=== PATIENT | female | born 1960 | race Caucasian/White ===

== ENCOUNTER 2018-01-15 03:24 | Inpatient (IN) ==
[2018-01-15] MEDS ORDERED: ONDANSETRON 4 MG/2 ML VIAL IV ONE (03:52)
[2018-01-15] MEDS ORDERED: 0.9 % SODIUM CHLORIDE 2,000 ML IV ONE (03:52)
[2018-01-15] MEDS ORDERED: KETOROLAC 30 MG/ML VIAL IV ONE (03:53)
[2018-01-15] MEDS ORDERED: POTASSIUM CHLORIDE 20 MEQ TABLET PO ONE (04:29)
[2018-01-15] MEDS ORDERED: POTASSIUM CHLORIDE 40 MEQ in DEXTROSE 5% IN WATER 500 ML IV ONE (04:29)
--- NOTE | 2018-01-15 04:32 | Emergency Department Note ---
Nausea/Vomiting/Diarrhea HPI - General Chief complaint: Nausea/Vomiting/Diarrhea Stated complaint: rib pain and nausea r/t pain Time Seen by Provider: 01/15/18 03:35 Source: patient Mode of arrival: ambulatory Limitations: no limitations - History of Present Illness HPI Narrative: 57-year-old female with nausea vomiting and diarrhea since yesterday. She thinks this is secondary to pain from known rib fractures-she fell about a month ago. However she has started drinking alcohol again as well as taking Tylenol for the pain. She was recently admitted from 12/15/2017 to 12/30/2017 at [facility] for electrolyte disturbances and fall. I reviewed those notes from [facility]. She was also seen here on 01/08/[address] Tellez and [facility]- . She denies fever shortness of breath - Related Data Allergies Allergy/AdvReac Type Severity Reaction Status Date / Time clarithromycin [From Biaxin] Allergy Intermediate Vomiting Verified 01/08/18 08: 19 Review of Systems All systems ED: reviewed and negative except as stated. Past Medical History - Past Medical History Attestation: Yes: The following information was validated with the patient. Medical history: Reports: CHF, GERD, renal disease, other (malnutrition, failure to thrive, ETOH abuse, anemia, electrolyte imbalance,rhabdo,falls, PNA) Psychiatric history: Reports: anxiety, depression Surgical history ED: Reports: orthopedic, other (knee), tubal ligation Family history: Reports: cancer (mother colon) - Social History smoking status: Current every day smoker Alcohol use: Reports: Daily, Heavy Physical Exam Thin female no acute distress. Normocephalic atraumatic. Conjunctive are clear sclerae nonicteric. No nasal discharge or congestion. Oropharynx pink and moist. Neck is supple without lymphadenopathy or thyromegaly. No carotid bruit. Heart is regular rate and rhythm no murmur appreciated. Lungs are clear to auscultation bilaterally without wheezes rales rhonchi rest or distress. Tenderness over the left lateral ribs is noted. Abdomen is soft nontender nondistended. No pedal edema. +2 radial pulse. She is alert oriented able to answer questions appropriately. I do not see any focal deficits however she does have a significant resting coarse tremor throughout including her head suggestive of essential tremor- she says this is chronic. Limitations: no limitations Course Vital Signs Pulse Rate 85 07/08/18 03:25 Respiratory Rate 16 01/15/18 03:25 Blood Pressure 113/79 01/15/18 03:25 Pulse Oximetry (%) 99 01/15/18 03:25 Pulse Rate 80 01/15/18 07:01 Respiratory Rate 16 01/15/18 03:25 Blood Pressure 108/66 01/15/18 07:01 Pulse Oximetry (%) 99 01/15/18 07:01 Nausea/Vomiting/Diarrhea - Lab Data Lab results reviewed: Yes I reviewed the patient's lab results. Result diagrams: 01/15/18 04:02 01/15/18 04:02 Lab Results 01/15/18 01/15/18 01/15/18 Range/Units 04:02 04:02 04:02 WBC 8.2 (4.5-11.0) K/mcL RBC 2.79 L (4.00-5.20) M/mcL Hgb 9.2 L (12.0-15.0) g/dL Hct 26.7 L (36.0-48.0) % POC Hct 29.0 L (36.0-48.0) % MCV 95.8 (80.0-100.0) fL MCH 32.9 (26.0-34.0) pg MCHC 34.3 (31.0-36.0) g/dL RDW 18.0 H (11.5-14.5) % Plt Count 223 (140-440) K/mcL MPV 6.2 L (7.4-10.4) fL Gran % 91.8 H (38.0-78.0) % Lymph % (Auto) 7.3 L (15.5-49.0) % Glenn % (Auto) 0.7 L (1.0-12.0) % Eos % (Auto) 0.2 (0.0-7.0) % Baso % (Auto) 0 (0.0-2.0) % Gran # 7.5 (1.8-8.0) K/mcL Lymph # (Auto) 0.6 L (1.5-4.8) K/mcL Glenn # (Auto) 0.1 (0.1-0.9) K/mcL Eos # (Auto) 0 (0.0-0.7) K/mcL Baso # (Auto) 0 (0.0-0.3) K/mcL POC Sodium 122 L (133-145) mmol/L Sodium 122 L (133-145) mmol/L POC Potassium 2.8 L* (3.3-5.1) mmol/L Potassium 2.9 L* (3.3-5.1) mmol/L POC Chloride 80 L (96-108) mmol/L Chloride 80 L (96-108) mmol/L Carbon Dioxide 24 (22-30) mmol/L POC Total CO2 24 (22-30) mmol/L Anion Gap 18.0 H (8-16) POC BUN 6 (6-20) mg/dl BUN 8 (6-20) mg/dl Creatinine 0.7 (0.6-1.1) mg/dl POC Creatinine 0.6 (0.6-1.1) mg/dl GFR Calculation 96 Glucose 259 H (70-105) mg/dL POC Glucose 259 H (70-105) mg/dL Calcium 8.6 (8.6-10.4) mg/dl POC WB Ioniz Calcium 1.01 L (1.16-1.32) mmol/L Magnesium (1.6-2.5) mg/dL Total Bilirubin 0.9 (0.0-1.0) mg/dL AST 1965 H (0-37) U/l ALT 555 H (0-40) U/l Alkaline Phosphatase 101 (39-117) U/L Troponin T 0.01 (0-0.03) ng/ml Total Protein 6.0 (5.9-8.4) gm/dL Albumin 3.6 (3.2-5.2) gm/dL Globulin 2.4 (2.2-3.7) gm/dL Albumin/Globulin Ratio 1.5 (1.0-2.3) Amylase 41 (28-100) U/L Lipase 32 (7-60) U/L Urine Color Urine Appearance Urine pH (5.0-9.0) Ur Specific [place] (1.000-1.035) Urine Protein (NEG) mg/dL Urine Glucose (UA) (NEG) mg/dL Urine Ketones (NEG) mg/dL Urine Occult Blood (<0.03) mg/dL Urine Nitrate (NEG) Urine Bilirubin (NEG) mg/dL Urine Urobilinogen (NEG) mg/dL Ur Leukocyte Esterase (NEG) /uL Urine RBC (0-1) /hpf Urine WBC (0-4) /hpf Ur Squamous Epith Cells (0-4) /hpf Urine Bacteria (0) /hpf Hyaline Casts (0-2) /lpf Urine Mucus (0) /hpf Ur Culture Indicated? Ethyl Alcohol (<0.010) gm/dl 01/15/18 01/15/18 01/15/18 Range/Units 04:02 04:02 06:10 WBC (4.5-11.0) K/mcL RBC (4.00-5.20) M/mcL Hgb (12.0-15.0) g/dL Hct (36.0-48.0) % POC Hct (36.0-48.0) % MCV (80.0-100.0) fL MCH (26.0-34.0) pg MCHC (31.0-36.0) g/dL RDW (11.5-14.5) % Plt Count (140-440) K/mcL MPV (7.4-10.4) fL Gran % (38.0-78.0) % Lymph % (Auto) (15.5-49.0) % Glenn % (Auto) (1.0-12.0) % Eos % (Auto) (0.0-7.0) % Baso % (Auto) (0.0-2.0) % Gran # (1.8-8.0) K/mcL Lymph # (Auto) (1.5-4.8) K/mcL Glenn # (Auto) (0.1-0.9) K/mcL Eos # (Auto) (0.0-0.7) K/mcL Baso # (Auto) (0.0-0.3) K/mcL POC Sodium (133-145) mmol/L Sodium (133-145) mmol/L POC Potassium (3.3-5.1) mmol/L Potassium (3.3-5.1) mmol/L POC Chloride (96-108) mmol/L Chloride (96-108) mmol/L Carbon Dioxide (22-30) mmol/L POC Total CO2 (22-30) mmol/L Anion Gap (8-16) POC BUN (6-20) mg/dl BUN (6-20) mg/dl Creatinine (0.6-1.1) mg/dl POC Creatinine (0.6-1.1) mg/dl GFR Calculation Glucose (70-105) mg/dL POC Glucose (70-105) mg/dL Calcium (8.6-10.4) mg/dl POC WB Ioniz Calcium (1.16-1.32) mmol/L Magnesium 1.1 L (1.6-2.5) mg/dL Total Bilirubin (0.0-1.0) mg/dL AST (0-37) U/l ALT (0-40) U/l Alkaline Phosphatase (39-117) U/L Troponin T (0-0.03) ng/ml Total Protein (5.9-8.4) gm/dL Albumin (3.2-5.2) gm/dL Globulin (2.2-3.7) gm/dL Albumin/Globulin Ratio (1.0-2.3) Amylase (28-100) U/L Lipase (7-60) U/L Urine Color Yellow Urine Appearance Clear Urine pH 6.0 (5.0-9.0) Ur Specific [place] 1.016 (1.000-1.035) Urine Protein Neg (NEG) mg/dL Urine Glucose (UA) 150 A (NEG) mg/dL Urine Ketones Neg (NEG) mg/dL Urine Occult Blood Neg (<0.03) mg/dL Urine Nitrate Neg (NEG) Urine Bilirubin Neg (NEG) mg/dL Urine Urobilinogen Neg (NEG) mg/dL Ur Leukocyte Esterase Neg (NEG) /uL Urine RBC 1 (0-1) /hpf Urine WBC 2 (0-4) /hpf Ur Squamous Epith Cells 4 (0-4) /hpf Urine Bacteria 0 (0) /hpf Hyaline Casts 4 H (0-2) /lpf Urine Mucus Few (0) /hpf Ur Culture Indicated? No Ethyl Alcohol < 0.010 (<0.010) gm/dl - Radiology Data Radiology results reviewed: Yes I reviewed the patient's radiology results. X-ray of the left ribs shows fractures on ribs 5 through 9 Abdominal x-ray series showed nonspecific gas pattern Disposition Pt seen by [employer]/PA only: No Clinical Impression: Normocytic anemia, Hypokalemia, Hyponatremia, Hypomagnesemia, Tremor Rib fracture Qualifiers: Encounter type: subsequent encounter Rib fracture type: multiple ribs Fracture type: closed Laterality: left Fracture healing: with delayed healing Qualified Code(s): S22.42XG - Multiple fractures of ribs, left side, subsequent encounter for fracture with delayed healing Alcoholic hepatitis Qualifiers: Ascites presence: without ascites Qualified Code(s): K70.10 - Alcoholic hepatitis without ascites Summary: After initial exam and interview patient is worked up with x-rays and labs. Started IV fluid and treated pain with Toradol, nausea with Zofran Laboratory shows hyponatremia hypokalemia and hypomagnesemia. Hyponatremia is new and down to 122. Likely this is related to her alcohol usage but nonetheless is acute. Hypokalemia and hypomagnesemia are likely related and are treated with K rider and mag rider. Other lab abnormalities noted are chronic normocytic anemia She also has alcoholic hepatitis and x-ray show rib fractures 5 through 9 on the left. I discussed these findings with her I discussed the situation with Dr. Melendez, our hospitalist who agreed to admit the patient to observation status to correct her electrolytes and deal with her other issues Disposition: Xfer As Outpt/Obs ([facility]) Condition: Fair Referrals: No,PCP [Primary Care Provider] -
[2018-01-15 04:38] LABS: Basophils # (Auto) 0 K/mcL (0.0-0.3); Basophils % (Auto) 0 % (0.0-2.0); Eosinophils # (Auto) 0 K/mcL (0.0-0.7); Eosinophils % (Auto) 0.2 % (0.0-7.0); Granulocytes % (Auto) 91.8 % (38.0-78.0); Lymphocytes # (Auto) 0.6 K/mcL (1.5-4.8); Lymphocytes % (Auto) 7.3 % (15.5-49.0); Mean Cell Volume 95.8 fL (80.0-100.0); Mean Corpuscular HGB Conc 34.3 g/dL (31.0-36.0); Mean Corpuscular Hemoglobin 32.9 pg (26.0-34.0); Monocytes # (Auto) 0.1 K/mcL (0.1-0.9); Monocytes % (Auto) 0.7 % (1.0-12.0); Platelet Count 223 K/mcL (140-440); RBC 2.79 M/mcL (4.00-5.20)
[2018-01-15] MEDS ORDERED: POTASSIUM CHLORIDE 20 MEQ/10 ML VIAL IV ONE (04:44)
[2018-01-15 04:55] LABS: ALT/SGPT 555 U/l (0-40); Albumin 3.6 gm/dL (3.2-5.2); Albumin/Globulin Ratio 1.5 (1.0-2.3); Alkaline Phosphatase 101 U/L (39-117); Amylase 41 U/L (28-100); Blood Urea Nitrogen 8 mg/dl (6-20); Lipase 32 U/L (7-60)
--- NOTE | 2018-01-15 06:42 | XRay Report ---
CLINICAL INFORMATION: Injury. Rib pain. TECHNIQUE: PA and multiple oblique views of the left ribs COMPARISON: Chest x-ray dated 01/08/2018 FINDINGS: Fractures of the left fifth through ninth ribs, posterolaterally. No pneumothorax. No hemopneumothorax. There is minimal associated pleural thickening. No significant pulmonary contusion or focal infiltrate No mediastinal widening. Right lung is negative. IMPRESSION: 1. Fractures of the left fifth through ninth ribs 2. No pneumothorax or hemothorax. No other abnormality. Interpreted and Authenticated by: Hemanth Abbott 01/15/18
--- NOTE | 2018-01-15 06:43 | XRay Report ---
CLINICAL INFORMATION: Diarrhea TECHNIQUE: Supine and upright abdomen COMPARISON: None FINDINGS: There is colonic gas. No dilated gas-filled small bowel. No pneumatosis. No pneumoperitoneum. No biliary or portal venous gas. Bowel gas pattern is unremarkable. No acute or focal abnormality. IMPRESSION: Negative abdomen Interpreted and Authenticated by: Hemanth Abbott 01/15/18
[2018-01-15] MEDS ORDERED: MAGNESIUM SULFATE 2 GM/50 ML BAG IV ONE (06:55)
[2018-01-15 07:05] LABS: Appearance,Urine CLEAR; Bacteria,Urine 0 /hpf (0); Bilirubin,Urine NEG (NEG); Color,Urine YELLOW; Glucose,Urine (UA) 150 mg/dL (NEG); Leukocyte Esterase,Urine NEG /uL (NEG); Mucus,Urine FEW /hpf (0); Protein,Urine NEG (NEG); Specific Gravity,Urine 1.016 (1.000-1.035); Urine Blood NEG mg/dL (<0.03); Urine Hyaline Cast 4 /lpf (0-2); Urine RBC 1 /hpf (0-1); Urine Squamous Epithelial Cell 4 /hpf (0-4); Urine WBC 2 /hpf (0-4); Urobilinogen,Urine NEG (NEG)
--- NOTE | 2018-01-15 10:45 | Internal Med History&Physical ---
Medical - H&P: [facility] Patient information: Note initiated : 01/15/18 at 10:39 am Service Date, if different from initiated Date: [] Patient: Do Cantu a 57 y/o F admitted on for rib pain and nausea r/t pain. Chief Complaint: [nausea, vomiting, and diarrhea, left rib-fracture pain] Chief complaint: nausea, vomiting, and diarrhea, left rib-fracture pain History of present illness: Ms. Cantu is a 57 year old F smoker with chronic alcohol abuse and recurrent hyponatremia and electrolyte abnormalities. She has multiple alcohol induced and related chronic health issues: malnutrition, failure to thrive, ETOH withdrawal, anemia, electrolyte imbalance,rhabdo, recurrent falls, rib fractures , PNA. She was recently hospitalized at [place] (12/15/17-12/30/17), and she last fell with left rib fractures a month ago. She resumed taking couple shots of whiskey in hopes to relieve her rib pain, but developed nausea vomiting and diarrhea yesterday and came to the ER for help early this morning. She was given NS IV fluid, antiemetics, and found to have hyponatremia, hypoproteinemia , hypo-magnesemia. She is started on IV magnesium, IV and oral K replacement. She is to be a placed on telemetry observation for electrolyte replacements. I discussed with her in great length and explained to her that she needs to quit smoking and alcohol use, completely. We will ask social work to arrange her with assistance All systems: reviewed and no additional remarkable complaints except as stated - Constitutional Constitutional: Present: fatigue, frequent falls, weakness - Gastrointestinal Gastrointestinal: Present: diarrhea, nausea, vomiting - Neurological Neurological: Present: frequent falls, tremor(s) - Psychiatric Psychiatric: Present: depression Medical - H&P: [facility] Medical history: Chronic alcohol abuse Recurrent electrolytes abnormalities secondary to alcohol abuse (e.g. hyponatremia and hypokalemia, etc.) Echo July 2017: EF 50-55% with left atrial enlargement, aortic root dilatation with right atrial enlargement and grade 1 diastolic dysfunction. GERD with peptic ulcer disease Osteoarthritis, spondylosis, other (malnutrition, failure to thrive, ETOH abuse, anemia, electrolyte imbalance,rhabdo,falls, PNA) Depression and anxiety is Surgical history: Tubal ligation and knee surgery, details unknown Pertinent family history: Alcoholism, Mother of colon cancer, has CVA Smoking status: Current every day smoker (down to a few cigarettes a day per her report, 1 pack per day for 40 years) Alcohol use: other (chronic alcohol abuse) Medical - H&P: Meds Allergies Allergy/AdvReac Type Severity Reaction Status Date / Time clarithromycin [From Biaxin] Allergy Intermediate Vomiting Verified 01/08/18 08: 19 Medical - H&P: Exam - Constitutional Vitals: Pulse Resp BP Pulse Ox 82 16 98/60 99 01/15/18 10:31 01/15/18 03:25 01/15/18 10:31 01/15/18 10:31 General appearance: thin Exam: depress looking, appears much older than stated age - Head Head exam: Present: atraumatic, normocephalic - Eye Eye exam: Present: EOMI Pupils: Present: normal accommodation, PERRL - ENT ENT exam: Present: mucous membranes moist - Neck Neck exam: Present: full ROM - Respiratory Respiratory exam: Present: normal respiratory exam, CTAB - Cardiovascular Cardiovascular exam: Present: +S1, +S2. Absent: gallop, rubs Additional comments: Slightly fast heart rate - GI/Abdominal GI/Abdominal exam: Present: normal bowel sounds, soft. Absent: guarding, rebound Additional comments: Slight mid epigastric tenderness with deep palpation - Extremities Exam Extremities exam: Present: full ROM. Absent: calf tenderness, pedal edema - Neurological Exam Neurological exam: Present: alert, CN II-XII intact, oriented X3 Additional comments: occasional, Mild Slight resting hand tremor/shakiness Medical - H&P: Reslt - Labs CBC & Chem 7: 01/16/18 03:40 01/16/18 03:40 Labs: Short CBC 01/15/18 Range/Units 04:02 WBC 8.2 (4.5-11.0) K/mcL Hgb 9.2 L (12.0-15.0) g/dL Hct 26.7 L (36.0-48.0) % Plt Count 223 (140-440) K/mcL BMP 01/15/18 04:02 Sodium 122 L Potassium 2.9 L* Chloride 80 L Carbon Dioxide 24 BUN 8 Creatinine 0.7 Glucose 259 H Calcium 8.6 Cardiac Enzymes 01/15/18 Range/Units 04:02 Troponin T 0.01 (0-0.03) ng/ml Liver Function 01/15/18 Range/Units 04:02 Total Bilirubin 0.9 (0.0-1.0) mg/dL AST 1965 H (0-37) U/l ALT 555 H (0-40) U/l Alkaline Phosphatase 101 (39-117) U/L Albumin 3.6 (3.2-5.2) gm/dL Urine 01/15/18 Range/Units 06:10 Urine Color Yellow Urine Appearance Clear Urine pH 6.0 (5.0-9.0) Ur Specific [place] 1.016 (1.000-1.035) Urine Protein Neg (NEG) mg/dL Urine Glucose (UA) 150 A (NEG) mg/dL - Imaging and Cardiology Abdominal x-ray Additional comments: IMPRESSION: Negative abdomen Interpreted and Authenticated by: Hemanth Abbott 01/15/18 Chest x-ray Additional comments: IMPRESSION: 1. Fractures of the left fifth through ninth ribs 2. No pneumothorax or hemothorax. No other abnormality. Interpreted and Authenticated by: Hemanth Abbott 01/15/18 Medical - H&P: A/P (1) Hypomagnesemia Current visit: Yes Status: Acute Additional 4 g of IV magnesium, follow with oral maintenance as needed (2) Hyponatremia Current visit: Yes Status: Acute Close monitor, avoid too quick correction for concern of central pontine myelolysis Check orthostatics (3) Hypokalemia Current visit: Yes Status: Acute Getting oral and IV potassium replacement, as well as magnesium replacement (4) Nausea vomiting and diarrhea Current visit: Yes Status: Acute Likely secondary to alcohol abuse, alcoholic hepatitis, we'll further evaluate, possible abdominal ultrasound (5) Alcoholic hepatitis Current visit: Yes Status: Acute Check coagulations PT/INR, etc. discussed and explained in great length and details of alcohol toxicity with patient, and strongly advised her to completely stop smoking and alcohol use. (6) Normocytic anemia Current visit: Yes Status: Acute Stool guaiac screening, anemia workup, monitor H&H, TSH (7) Alcohol abuse Current visit: Yes Status: Acute strongly advised her to completely stop smoking and alcohol use, as above (8) Tobacco abuse Current visit: Yes Status: Acute strongly advised her to completely stop smoking and alcohol use, as above (9) Rib fracture Current visit: Yes Status: Acute Frequent fall with fracture secondary to alcohol abuse. I had strongly advised her to completely stop smoking and alcohol use, as above. Will place her on telemetry for electrolyte replacement, observation status, consult social work to assist her with AA and other assistance & resources.
[2018-01-15] MEDS ORDERED: IOPAMIDOL 100 ML BOTTLE IV ONE (11:11)
[2018-01-15] MEDS: ACETAMINOPHEN 325 MG TABLET PO PRN (11:55)
[2018-01-15] MEDS ORDERED: MAGNESIUM SULFATE 4 GM/100 ML BAG IV ONE (12:00)
[2018-01-15] MEDS ORDERED: HYDROcodone/APAP 5/325MG TABLET PO PRN (12:18)
[2018-01-15] MEDS: IPRATROPIUM/ALBUTEROL 3 ML AMPUL.NEB NEB SCH ×2 (12:42→19:25)
[2018-01-15] MEDS: NICOTINE 14 MG PATCH TOPICAL SCH (13:35)
[2018-01-15] MEDS: HYDROcodone/APAP 5/325MG TABLET PO PRN ×2 (13:35→22:25)
[2018-01-15] MEDS: LIDOCAINE PATCH TOPICAL SCH (14:36)
[2018-01-15] MEDS: 0.9 % SODIUM CHLORIDE 10 ML SYRINGE IV SCH ×2 (14:44→22:57)
[2018-01-15 16:35] LABS: Blood Urea Nitrogen 8 mg/dl (6-20)
[2018-01-15] MEDS ORDERED: ONDANSETRON 4 MG/2 ML VIAL ONE (19:06)
[2018-01-16] MEDS: LIDOCAINE PATCH TOPICAL SCH ×2 (03:56→12:38)
[2018-01-16] MEDS: IPRATROPIUM/ALBUTEROL 3 ML AMPUL.NEB NEB SCH ×4 (03:57→19:50)
[2018-01-16] MEDS: ACETAMINOPHEN 325 MG TABLET PO PRN (04:40)
[2018-01-16 05:25] LABS: Basophils # (Auto) 0 K/mcL (0.0-0.3); Basophils % (Auto) 0 % (0.0-2.0); Eosinophils # (Auto) 0.1 K/mcL (0.0-0.7); Eosinophils % (Auto) 1.9 % (0.0-7.0); Granulocytes % (Auto) 93.3 % (38.0-78.0); Lymphocytes # (Auto) 0.2 K/mcL (1.5-4.8); Lymphocytes % (Auto) 3.9 % (15.5-49.0); Mean Cell Volume 97.8 fL (80.0-100.0); Mean Corpuscular Hemoglobin 33.2 pg (26.0-34.0); Monocytes # (Auto) 0.1 K/mcL (0.1-0.9); Monocytes % (Auto) 0.9 % (1.0-12.0); Platelet Count 157 K/mcL (140-440); RBC 2.39 M/mcL (4.00-5.20)
[2018-01-16 05:50] LABS: ALT/SGPT 745 U/l (0-40); Albumin 3.2 gm/dL (3.2-5.2); Albumin/Globulin Ratio 1.6 (1.0-2.3); Alkaline Phosphatase 98 U/L (39-117); Blood Urea Nitrogen 7 mg/dl (6-20)
[2018-01-16] MEDS: ONDANSETRON 4 MG/2 ML VIAL IV PRN ×2 (07:03→19:35)
[2018-01-16] MEDS: 0.9 % SODIUM CHLORIDE 1,000 ML IV SCH (07:08)
[2018-01-16] MEDS: POTASSIUM CHLORIDE 20 MEQ PACKET PO SCH ×2 (07:15→09:34)
[2018-01-16 07:22] LABS: Retic Absolute 4.3 % (0.5-1.5)
[2018-01-16] MEDS ORDERED: PANTOPRAZOLE 40 MG TABLET PO SCH (07:30)
[2018-01-16] MEDS: 0.9 % SODIUM CHLORIDE 10 ML SYRINGE IV SCH ×3 (07:40→22:05)
--- NOTE | 2018-01-16 07:51 | Internal Med Progress Note ---
Medical - PN: Subj Patient information: Note initiated : 01/16/18 at 7:50 am Service Date, if different from initiated Date: [] Patient: Do Cantu 57 y/o F admitted on 01/15/18 for rib pain and nausea r /t pain. Chief Complaint: [] Interval history: 57 year old F smoker with chronic alcohol abuse and found to have recurrent hyponatremia and electrolyte abnormalities. She is admited 01/15/18 on telemetry observation for electrolyte replacements. She has multiple alcohol induced and related chronic health issues: malnutrition , failure to thrive, ETOH withdrawal, anemia, electrolyte imbalance,rhabdo, recurrent falls, rib fractures, PNA. She was recently hospitalized at [facility] (12/15/17-12/30/17), and she last fell with left rib fractures a month ago. She resumed taking couple shots of whiskey in hopes to relieve her rib pain, but developed nausea vomiting and diarrhea 01/14/18 and came to the ER for help early 01/15/18 morning. She was given NS IV fluid, antiemetics, and found to have hyponatremia, hypoproteinemia, hypo-magnesemia. She is started on IV magnesium, IV and oral K replacement. I discussed with her in great length and explained to her that she needs to quit smoking and alcohol use, completely. We will ask social work to arrange her with assistance 01/16/18 She continued to have intractable nausea & vomiting, other abnormal labs with anemia, elevated INR, elevated total bilirubin. She had also reported to have dark tarry stool at home. We will check CT Pelvis with contrast, TSH, iron panels, B12 folate, Hemoccult screen, change oral to IV Protonix; resume gentle IV fluid if orthostatic positive. Recheck INR - Constitutional Vitals: Vital Signs Temp Pulse Resp BP Pulse Ox 99.1 F H 94 H 20 104/62 98 01/16/18 04:00 01/16/18 04:00 01/16/18 04:00 01/16/18 04:00 01/16/18 04:00 Period Temp Pulse Resp BP Sys/Manning Pulse Ox Last 24 Hr 97.8 F-99.2 F 80-98 16-26 97-120/59-75 95-100 Intake and Output 01/15/18 01/16/18 01/16/18 21:59 05:59 13:59 Intake Total 2640 / 2640 Output Total 750 / 750 300 / 300 Balance 1890 / 1890 -300 / -300 Weight 116 lb 14.4 oz Intake & Output: Intake & Output 01/15/18 01/16/18 01/16/18 21:59 05:59 13:59 Intake Total 2640 / 2640 Output Total 750 / 750 300 / 300 Balance 1890 / 1890 -300 / -300 Weight 116 lb 14.4 oz Intake: Oral 2640 / 2640 Output: Void Amount 450 / 450 300 / 300 # of times incontinent of urine 0 / 0 Emesis 300 / 300 Other: # Voids 1 2 General appearance: mild distress, thin Exam: pale looking - Head Head exam: Present: atraumatic, normocephalic - Eye Eye exam: Present: EOMI Pupils: Present: normal accommodation, PERRL - ENT ENT exam: Present: mucous membranes moist - Neck Neck exam: Present: full ROM. Absent: meningismus, thyromegaly - Respiratory Respiratory exam: Present: normal respiratory exam, CTAB - Cardiovascular Cardiovascular exam: Present: RRR, +S1, +S2. Absent: gallop, rubs - GI/Abdominal GI/Abdominal exam: Present: normal bowel sounds, soft, tenderness. Absent: guarding, rebound Additional comments: Mild Midsternal/epigastric tenderness on palpation - Extremities Exam Extremities exam: Absent: pedal edema Additional comments: No clubbing, cyanosis, nor edema - Neurological Exam Neurological exam: Present: alert, CN II-XII intact, oriented X3 - Psychiatric Psychiatric exam: Present: depressed - Skin Skin exam: Present: pallor Medical - PN: Obj Da - Labs CBC & Chem 7: 01/16/18 03:40 01/16/18 03:40 Labs: Abnormal Lab Results 01/16/18 01/16/18 01/16/18 06:27 03:40 03:40 RBC 2.39 L Hgb 7.9 L Hct 23.4 L POC Hct RDW 19.0 H MPV 7.2 L Gran % 93.3 H Lymph % (Auto) 3.9 L [place] % (Auto) 0.9 L Lymph # (Auto) 0.2 L Absolute Retic 4.3 H PT INR POC Sodium Sodium 120 L POC Potassium Potassium POC Chloride Chloride 86 L Carbon Dioxide 21 L Anion Gap Creatinine 0.5 L Glucose POC Glucose Calcium 8.0 L POC WB Ioniz Calcium Phosphorus Magnesium Total Bilirubin 1.9 H GGT AST 1676 H ALT 745 H Total Protein 5.2 L Globulin 2.0 L Urine Glucose (UA) Hyaline Casts 01/15/18 01/15/18 01/15/18 15:34 15:34 06:10 RBC Hgb Hct POC Hct RDW MPV Gran % Lymph % (Auto) [place] % (Auto) Lymph # (Auto) Absolute Retic PT 21.8 H INR 1.9 H POC Sodium Sodium 125 L POC Potassium Potassium POC Chloride Chloride 88 L Carbon Dioxide Anion Gap Creatinine Glucose 218 H POC Glucose Calcium 7.6 L POC WB Ioniz Calcium Phosphorus Magnesium Total Bilirubin GGT AST ALT Total Protein Globulin Urine Glucose (UA) 150 A Hyaline Casts 4 H 01/15/18 01/15/18 01/15/18 04:20 04:02 04:02 RBC Hgb Hct POC Hct 29.0 L RDW MPV Gran % Lymph % (Auto) [place] % (Auto) Lymph # (Auto) Absolute Retic PT INR POC Sodium 122 L Sodium 122 L POC Potassium 2.8 L* Potassium 2.9 L* POC Chloride 80 L Chloride 80 L Carbon Dioxide Anion Gap 18.0 H Creatinine Glucose 259 H POC Glucose 259 H Calcium POC WB Ioniz Calcium 1.01 L Phosphorus 2.1 L Magnesium 1.1 L Total Bilirubin GGT 128 H AST 1965 H ALT 555 H Total Protein Globulin Urine Glucose (UA) Hyaline Casts 01/15/18 04:02 RBC 2.79 L Hgb 9.2 L Hct 26.7 L POC Hct RDW 18.0 H MPV 6.2 L Gran % 91.8 H Lymph % (Auto) 7.3 L [place] % (Auto) 0.7 L Lymph # (Auto) 0.6 L Absolute Retic PT INR POC Sodium Sodium POC Potassium Potassium POC Chloride Chloride Carbon Dioxide Anion Gap Creatinine Glucose POC Glucose Calcium POC WB Ioniz Calcium Phosphorus Magnesium Total Bilirubin GGT AST ALT Total Protein Globulin Urine Glucose (UA) Hyaline Casts Meds: Medications Acetaminophen (Tylenol) 650 mg PO Q8HP PRN PRN Reason: PAIN/FEVER > 101 Last Admin: 01/16/18 04:40 Dose: 650 mg Hydrocodone Bitart/Acetaminophen ([place] 5/325mg) 1 tab PO Q8HP PRN PRN Reason: PAIN LEVEL 3-6 Last Admin: 01/15/18 22:25 Dose: 1 tab Albuterol/Ipratropium (Duoneb) 3 ml NEB Q6HRT [facility] Last Admin: 01/16/18 03:57 Dose: Not Given Sodium Chloride (Sodium Chloride 0.9%) 1,000 mls @ 50 mls/hr IV .Q20H [facility] Last Admin: 01/16/18 07:08 Dose: 50 mls/hr Lidocaine (Lidoderm) 1 patch TOPICAL DAILY@1200 EVELYN Last Admin: 01/15/18 14:36 Dose: 1 patch Lidocaine (Lidoderm) 0 patch TOPICAL HS@0000 [facility] Last Admin: 01/16/18 03:56 Dose: Not Given Nicotine (Nicoderm) 14 mg TOPICAL DAILY@1000 EVELYN Last Admin: 01/15/18 13:35 Dose: 14 mg Ondansetron HCl (Zofran) 4 mg IV Q4-6HP PRN PRN Reason: Nausea And Vomiting Last Admin: 01/16/18 07:03 Dose: 4 mg Pantoprazole Sodium (Protonix) 40 mg PO QAMAC [facility] Last Admin: 01/16/18 07:03 Dose: 40 mg Potassium Chloride (Klor-Con) 40 meq PO Q2H [facility] Stop: 01/16/18 08:16 Last Admin: 01/16/18 07:15 Dose: 40 meq Sodium Chloride (Saline Flush) 10 ml IV Q8 [facility] Last Admin: 01/16/18 07:40 Dose: 10 ml Medical - PN: A/P - Time Spent With Patient Total time spent is greater than 50% in coordination of care (as documented) at patient's floor/unit and/or counseling patient: Greater than 35 minutes (1) Nausea vomiting and diarrhea Problem details: Intractable, peptic ulcer, hepatic alcoholic liver, vs. gallbladder etiologies, or others Status: Acute Assessment and plan: CT abd & Pelvis with contrast, IV Protonix, symptomatic relief with zofran/ antiementics, Hemoccult screen. Current Visit: No (2) Normocytic anemia Problem details: Concern for GI bleeding Status: Acute Assessment and plan: check TSH, iron panels, B12 folate, Hemoccult screen, change oral to IV Protonix , recheck coagulation, Hemoccult screen. Current Visit: No (3) Hyponatremia Status: Acute Assessment and plan: Orthostatic check, resume gentle NS Current Visit: No (4) Hypokalemia Status: Acute Assessment and plan: Potassium better today, still at margin, we'll give an additional oral doses Current Visit: No (5) Hypomagnesemia Status: Acute Current Visit: No (6) Alcoholic hepatitis Status: Acute Assessment and plan: Liver enzymes are slight better, but total bili up, anticoagulated without medications; concern she may have GI bleed, possibly. Current Visit: No (7) Alcohol abuse Status: Chronic Assessment and plan: strongly advised her to completely stop smoking and alcohol use, as above. She'll need to have PCP set up for healthcare maintenance, especially helpful with her alcohol & tobacco abuse issues Current Visit: No (8) Tobacco abuse Status: Chronic Assessment and plan: On nicotine patch. She'll need to have PCP set up for healthcare maintenance, especially helpful with her alcohol & tobacco abuse issues Current Visit: No (9) Rib fracture Status: Chronic Assessment and plan: Stable, fall precaution Current Visit: No Medical - PN: Qual - Stroke Symptom Onset Unknown: No - VTE Deep Vein Thrombosis/Pulmonary Embolism Present on Admission: No
[2018-01-16] MEDS: HYDROcodone/APAP 5/325MG TABLET PO PRN ×2 (09:29→20:25)
[2018-01-16] MEDS: NICOTINE 14 MG PATCH TOPICAL SCH (09:29)
[2018-01-16] MEDS ORDERED: NICOTINE 14 MG PATCH TOPICAL SCH (10:00)
--- NOTE | 2018-01-16 11:17 | Cat Scan Report ---
CLINICAL INFORMATION: Nausea and vomiting COMPARISON: None. TECHNIQUE: Axial images were obtained through the abdomen and pelvis. Sagittally and coronally reformatted images. 70 mL contrast material injected intravenously. Oral contrast material was not administered FINDINGS: Small bilateral pleural effusions. There is mild pulmonary parenchymal density at both lung bases. This may be related to volume loss. No parenchymal consolidation. No discrete mass. No pericardial fluid. Precontrast examination was not obtained. Liver appears diffusely low in density consistent with hepatic steatosis. No focal hepatic mass. Liver contour is smooth. No evidence for cirrhosis. No ascites. No calcified gallstones. No definite gallbladder wall thickening. There is, however, mild pericholecystic inflammatory change. Cholecystitis is possible. Gallbladder ultrasound is recommended. No dilated bile ducts. Common bile duct measures 4 mm. Spleen is not enlarged. Normal enhancement of splenic and portal veins. No pancreatic mass. No evidence for pancreatitis. 17 mm right adrenal nodule. 15 mm left adrenal nodule. Findings are probably benign. HERIBERTO values on this postcontrast enhanced examination are nonspecific. 6 month follow-up evaluation of the adrenal glands is recommended. Kidneys are negative. No solid or cystic mass. No hydronephrosis. No calculi. Abdominal aorta and common iliac arteries are calcified. No abdominal aortic aneurysm. Colon is negative. No detectable colonic mass. No diverticulitis. No appendicitis. No mechanical small bowel obstruction. No retroperitoneal or mesenteric adenopathy. Severe degenerative disc disease at L2-3. No sacral or pelvic fracture. Uterus is present. No adnexal mass. IMPRESSION: 1. Hepatic steatosis. No focal hepatic mass 2. No calcified gallstones. There is pericholecystic inflammatory change. Cholecystitis is not excluded. Gallbladder ultrasound recommended 3. Bilateral adrenal nodules. 6 month follow-up examination recommended. 4. The exam was performed using radiation dose optimization techniques including, but not limited to, automated exposure control, adjustment of the mA and/or kV according to patient size and use of iterative reconstruction technique. Interpreted and Authenticated by: Hemanth Abbott 01/16/18
[2018-01-16] MEDS: PANTOPRAZOLE 40 MG VIAL IV SCH ×2 (12:40→17:01)
[2018-01-16 13:00] LABS: Ferritin 911.5 ng/ml (13-150)
--- NOTE | 2018-01-16 18:35 | Ultrasound Report ---
CLINICAL INFORMATION: Abdominal pain. Possible cholecystitis TECHNIQUE: Grayscale and color flow Doppler spectral imaging COMPARISON: CT scan dated 01/16/2018 FINDINGS: Gallbladder is abnormal. Gallbladder is distended. Gallbladder measures approximately 10.1 cm in length. There is borderline gallbladder wall thickening. Gallbladder wall measures approximately 2.7 mm. There is mild pericholecystic fluid. There are no discrete gallstones but there is biliary sludge within the gallbladder lumen. Patient was tender when scanned over the gallbladder. Common bile duct measures 7 mm maximally. This is consistent with mild common bile duct dilatation. No detectable choledocholithiasis. No intrahepatic bile duct dilatation. Liver measures 19 cm maximally. Liver is somewhat enlarged and echogenic. No focal intrahepatic abnormality. Liver contour is smooth. No evidence for cirrhosis. No significant ascites. Visualized portions of the pancreas are negative. The pancreatic duct is borderline dilated. Pancreatic duct measures 2.8 mm maximally. No detectable pancreatic head mass. No pancreatic head mass was identified on previous CT scan. IMPRESSION: 1. Distended gallbladder with intraluminal biliary sludge. No discrete calculi 2. Borderline gallbladder wall thickening and pericholecystic fluid. Positive sonographic Mosley's sign 3. Findings are consistent with cholecystitis 4. Borderline dilatation of the pancreatic duct. No pancreatic head mass identified. 5. Mildly enlarged liver. Liver is echogenic without focal mass. Interpreted and Authenticated by: Hemanth Abbott 01/16/18
[2018-01-17] MEDS: LIDOCAINE PATCH TOPICAL SCH ×2 (00:10→11:57)
[2018-01-17] MEDS: IPRATROPIUM/ALBUTEROL 3 ML AMPUL.NEB NEB SCH ×4 (01:05→19:35)
[2018-01-17] MEDS: 0.9 % SODIUM CHLORIDE 1,000 ML IV SCH ×4 (02:12→22:15)
[2018-01-17] MEDS: ACETAMINOPHEN 325 MG TABLET PO PRN ×2 (04:06→17:56)
[2018-01-17] MEDS: HYDROcodone/APAP 5/325MG TABLET PO PRN ×2 (04:41→18:51)
[2018-01-17 05:42] LABS: Basophils # (Auto) 0 K/mcL (0.0-0.3); Basophils % (Auto) 0 % (0.0-2.0); Eosinophils # (Auto) 0.1 K/mcL (0.0-0.7); Eosinophils % (Auto) 0.9 % (0.0-7.0); Granulocytes % (Auto) 94.2 % (38.0-78.0); Lymphocytes # (Auto) 0.4 K/mcL (1.5-4.8); Lymphocytes % (Auto) 3.8 % (15.5-49.0); Mean Cell Volume 98.5 fL (80.0-100.0); Mean Corpuscular HGB Conc 33.4 g/dL (31.0-36.0); Mean Corpuscular Hemoglobin 32.9 pg (26.0-34.0); Monocytes # (Auto) 0.1 K/mcL (0.1-0.9); Monocytes % (Auto) 1.1 % (1.0-12.0); Platelet Count 147 K/mcL (140-440); Red Cell Distribution Width 19.9 % (11.5-14.5)
[2018-01-17] MEDS: 0.9 % SODIUM CHLORIDE 10 ML SYRINGE IV SCH ×3 (05:46→22:15)
[2018-01-17 06:36] LABS: Hemoglobin A1C 6.3 % HGB (4.0-6.0)
[2018-01-17 06:43] LABS: ALT/SGPT 3150 U/l (0-40); Albumin/Globulin Ratio 1.4 (1.0-2.3); Alkaline Phosphatase 147 U/L (39-117); Blood Urea Nitrogen 7 mg/dl (6-20)
[2018-01-17] MEDS ORDERED: 0.9 % SODIUM CHLORIDE 300 ML IV ONE (07:19)
--- NOTE | 2018-01-17 07:58 | Internal Med Progress Note ---
Medical - PN: Subj Patient information: Note initiated : 01/17/18 at 7:54 am Service Date, if different from initiated Date: [] Patient: Do Cantu 57 y/o F admitted on 01/15/18 for Rib Pain, Nausea r/t Pain/Rib Fracture. Chief Complaint: [] Interval history: 57 year old F smoker with chronic alcohol abuse and found to have recurrent hyponatremia and electrolyte abnormalities. She is admited 01/15/18 on telemetry observation for electrolyte replacements. She has multiple alcohol induced and related chronic health issues: malnutrition , failure to thrive, ETOH withdrawal, anemia, electrolyte imbalance,rhabdo, recurrent falls, rib fractures, PNA. She was recently hospitalized at [facility] (12/15/17-12/30/17), and she last fell with left rib fractures a month ago. She resumed taking couple shots of whiskey in hopes to relieve her rib pain, but developed nausea vomiting and diarrhea 01/14/18 and came to the ER for help early 01/15/18 morning. She was given NS IV fluid, antiemetics, and found to have hyponatremia, hypoproteinemia, hypo-magnesemia. She is started on IV magnesium, IV and oral K replacement. I discussed with her in great length and explained to her that she needs to quit smoking and alcohol use, completely. We will ask social work to arrange her with assistance 01/16/18 She continued to have intractable nausea & vomiting, other abnormal labs with anemia, elevated INR, elevated total bilirubin. She had also reported to have dark tarry stool at home. We will check CT Pelvis with contrast, TSH, iron panels, B12 folate, Hemoccult screen, change oral to IV Protonix; resume gentle IV fluid if orthostatic positive. Recheck INR 01/17/18 Acute cholecystitis on abdominal ultrasound, worsen hyper-anticoagulation and likely blood loss anemia, stool guaiacs pending, add on lipase and amylase. IV fluids, vitamin K, type and cross for transfusion. Surgery consult on cholecystitis - Constitutional Vitals: Vital Signs Temp Pulse Resp BP Pulse Ox 98.9 F 110 H 20 109/78 97 01/17/18 04:00 01/17/18 07:29 01/17/18 07:29 01/17/18 07:29 01/17/18 07:29 Period Temp Pulse Resp BP Sys/Manning Pulse Ox Last 24 Hr 98.2 F-99.4 F 93-110 16-22 91-116/57-78 97-100 Intake and Output 01/16/18 01/17/18 01/17/18 21:59 05:59 13:59 Intake Total 360 / 360 1312 / 1312 Output Total 1400 / 1400 1425 / 1425 550 / 550 Balance -1040 / -1040 -113 / -113 -550 / -550 Weight 117 lb Intake & Output: Intake & Output 01/16/18 01/17/18 01/17/18 21:59 05:59 13:59 Intake Total 360 / 360 1312 / 1312 Output Total 1400 / 1400 1425 / 1425 550 / 550 Balance -1040 / -1040 -113 / -113 -550 / -550 Weight 117 lb Intake: IV 952 / 952 Sodium Chloride 0.9% 1,000 ml @ 952 / 952 50 mls/hr IV .Q20H [facility] Rx#: [id number] Oral 360 / 360 360 / 360 Output: Urine Catheter Amount 150 / 150 Void Amount 1250 / 1250 1425 / 1425 550 / 550 Other: Meal Dinner Percent of Meal Consumed 100% Feeding Ability Independent # Voids 1 1 Medical - PN: Obj Da - Labs CBC & Chem 7: 01/17/18 03:30 01/17/18 03:30 Labs: Abnormal Lab Results 01/17/18 01/17/18 01/17/18 03:30 03:30 03:30 RBC Hgb Hct POC Hct RDW MPV Gran % Lymph % (Auto) [place] % (Auto) Gran # Lymph # (Auto) Absolute Retic PT 25.8 H INR 2.3 H POC Sodium Sodium 119 L* POC Potassium Potassium POC Chloride Chloride 86 L Carbon Dioxide 17 L Anion Gap Creatinine Glucose 182 H POC Glucose Hemoglobin A1c 6.3 H Calcium 8.2 L POC WB Ioniz Calcium Phosphorus Magnesium Iron TIBC Transferrin % Sat Ferritin Total Bilirubin 1.5 H GGT AST 9445 H ALT 3150 H Alkaline Phosphatase 147 H Total Protein 5.2 L Albumin 3.0 L Globulin Vitamin B12 Folate Urine Glucose (UA) Hyaline Casts 01/17/18 01/16/18 01/16/18 03:30 06:27 06:27 RBC 2.20 L Hgb 7.2 L Hct 21.7 L POC Hct RDW 19.9 H MPV Gran % 94.2 H Lymph % (Auto) 3.8 L [place] % (Auto) Gran # 8.8 H Lymph # (Auto) 0.4 L Absolute Retic 4.3 H PT INR POC Sodium Sodium POC Potassium Potassium POC Chloride Chloride Carbon Dioxide Anion Gap Creatinine Glucose POC Glucose Hemoglobin A1c Calcium POC WB Ioniz Calcium Phosphorus Magnesium Iron TIBC Transferrin % Sat Ferritin Total Bilirubin GGT AST ALT Alkaline Phosphatase Total Protein Albumin Globulin Vitamin B12 Folate > 20.0 H Urine Glucose (UA) Hyaline Casts 01/16/18 01/16/18 01/16/18 06:27 03:41 03:40 RBC Hgb Hct POC Hct RDW MPV Gran % Lymph % (Auto) [place] % (Auto) Gran # Lymph # (Auto) Absolute Retic PT INR POC Sodium Sodium 120 L POC Potassium Potassium POC Chloride Chloride 86 L Carbon Dioxide 21 L Anion Gap Creatinine 0.5 L Glucose POC Glucose Hemoglobin A1c Calcium 8.0 L POC WB Ioniz Calcium Phosphorus Magnesium Iron 29 L TIBC 204 L Transferrin % Sat 14 L Ferritin 911.5 H Total Bilirubin 1.9 H GGT AST 1676 H ALT 745 H Alkaline Phosphatase Total Protein 5.2 L Albumin Globulin 2.0 L Vitamin B12 1727 H Folate Urine Glucose (UA) Hyaline Casts 01/16/18 01/15/18 01/15/18 03:40 15:34 15:34 RBC 2.39 L Hgb 7.9 L Hct 23.4 L POC Hct RDW 19.0 H MPV 7.2 L Gran % 93.3 H Lymph % (Auto) 3.9 L [place] % (Auto) 0.9 L Gran # Lymph # (Auto) 0.2 L Absolute Retic PT 21.8 H INR 1.9 H POC Sodium Sodium 125 L POC Potassium Potassium POC Chloride Chloride 88 L Carbon Dioxide Anion Gap Creatinine Glucose 218 H POC Glucose Hemoglobin A1c Calcium 7.6 L POC WB Ioniz Calcium Phosphorus Magnesium Iron TIBC Transferrin % Sat Ferritin Total Bilirubin GGT AST ALT Alkaline Phosphatase Total Protein Albumin Globulin Vitamin B12 Folate Urine Glucose (UA) Hyaline Casts 01/15/18 01/15/18 01/15/18 06:10 04:20 04:02 RBC Hgb Hct POC Hct RDW MPV Gran % Lymph % (Auto) [place] % (Auto) Gran # Lymph # (Auto) Absolute Retic PT INR POC Sodium Sodium POC Potassium Potassium POC Chloride Chloride Carbon Dioxide Anion Gap Creatinine Glucose POC Glucose Hemoglobin A1c Calcium POC WB Ioniz Calcium Phosphorus 2.1 L Magnesium 1.1 L Iron TIBC Transferrin % Sat Ferritin Total Bilirubin GGT 128 H AST ALT Alkaline Phosphatase Total Protein Albumin Globulin Vitamin B12 Folate Urine Glucose (UA) 150 A Hyaline Casts 4 H 01/15/18 01/15/18 04:02 04:02 RBC 2.79 L Hgb 9.2 L Hct 26.7 L POC Hct 29.0 L RDW 18.0 H MPV 6.2 L Gran % 91.8 H Lymph % (Auto) 7.3 L [place] % (Auto) 0.7 L Gran # Lymph # (Auto) 0.6 L Absolute Retic PT INR POC Sodium 122 L Sodium 122 L POC Potassium 2.8 L* Potassium 2.9 L* POC Chloride 80 L Chloride 80 L Carbon Dioxide Anion Gap 18.0 H Creatinine Glucose 259 H POC Glucose 259 H Hemoglobin A1c Calcium POC WB Ioniz Calcium 1.01 L Phosphorus Magnesium Iron TIBC Transferrin % Sat Ferritin Total Bilirubin GGT AST 1965 H ALT 555 H Alkaline Phosphatase Total Protein Albumin Globulin Vitamin B12 Folate Urine Glucose (UA) Hyaline Casts Meds: Medications Acetaminophen (Tylenol) 650 mg PO Q8HP PRN PRN Reason: PAIN/FEVER > 101 Last Admin: 01/17/18 04:06 Dose: 650 mg Hydrocodone Bitart/Acetaminophen ([place] 5/325mg) 1 tab PO Q8HP PRN PRN Reason: PAIN LEVEL 3-6 Last Admin: 01/17/18 04:41 Dose: 1 tab Albuterol/Ipratropium (Duoneb) 3 ml NEB Q6HRT [facility] Last Admin: 01/17/18 07:48 Dose: Not Given Sodium Chloride (Sodium Chloride 0.9%) 1,000 mls @ 100 mls/hr IV .Q10H [facility] Lidocaine (Lidoderm) 1 patch TOPICAL DAILY@1200 EVELYN Last Admin: 01/16/18 12:38 Dose: 1 patch Lidocaine (Lidoderm) 0 patch TOPICAL HS@0000 EVELYN Last Admin: 01/17/18 00:10 Dose: Not Given Morphine Sulfate (Morphine) 0.5 - 1 mg IV Q4HP PRN PRN Reason: Pain Level > 6, breakthrough Nicotine (Nicoderm) 14 mg TOPICAL DAILY@1000 EVELYN Last Admin: 01/16/18 09:29 Dose: 14 mg Ondansetron HCl (Zofran) 4 mg IV Q4-6HP PRN PRN Reason: Nausea And Vomiting Last Admin: 01/16/18 19:35 Dose: 4 mg Pantoprazole Sodium (Protonix) 40 mg IV BIDAC [facility] Last Admin: 01/16/18 17:01 Dose: 40 mg Sodium Chloride (Saline Flush) 10 ml IV Q8 [facility] Last Admin: 01/17/18 05:46 Dose: Not Given Medical - PN: A/P - Time Spent With Patient Total time spent is greater than 50% in coordination of care (as documented) at patient's floor/unit and/or counseling patient: Greater than 35 minutes (1) Nausea vomiting and diarrhea Problem details: Intractable, peptic ulcer, hepatic alcoholic liver, vs. gallbladder etiologies, or others Status: Acute Assessment and plan: CT abd & Pelvis with contrast: Hepatic steatosis, pericholecystic inflammatory changes (Bilateral adrenal nodules. 6 month follow-up examination recommended). Abdominal ultrasound are consistent with cholecystitis. We will consult surgery, Dr. Juarez Current Visit: No (2) Normocytic anemia Problem details: Concern for GI bleeding Status: Acute Assessment and plan: check TSH, iron panels, B12 folate, Hemoccult screen, change oral to IV Protonix , recheck coagulation, Hemoccult screen. Current Visit: No (3) Hyponatremia Status: Acute Assessment and plan: Orthostatic check, resume gentle NS Current Visit: No (4) Hypokalemia Status: Acute Assessment and plan: Potassium better today, still at margin, we'll give an additional oral doses Current Visit: No (5) Hypomagnesemia Status: Acute Current Visit: No (6) Alcoholic hepatitis Status: Acute Assessment and plan: Liver enzymes are slight better, but total bili up, anticoagulated without medications; concern she may have GI bleed, possibly. Current Visit: No (7) Alcohol abuse Status: Chronic Assessment and plan: strongly advised her to completely stop smoking and alcohol use, as above. She'll need to have PCP set up for healthcare maintenance, especially helpful with her alcohol & tobacco abuse issues Current Visit: No (8) Tobacco abuse Status: Chronic Assessment and plan: On nicotine patch. She'll need to have PCP set up for healthcare maintenance, especially helpful with her alcohol & tobacco abuse issues Current Visit: No (9) Rib fracture Status: Chronic Assessment and plan: Stable, fall precaution Current Visit: No Medical - PN: Qual - Stroke Symptom Onset Unknown: No - VTE Deep Vein Thrombosis/Pulmonary Embolism Present on Admission: No
[2018-01-17] MEDS: PANTOPRAZOLE 40 MG VIAL IV SCH ×2 (08:37→17:20)
[2018-01-17 08:46] LABS: Amylase 58 U/L (28-100); Lipase 29 U/L (7-60)
[2018-01-17] MEDS ORDERED: PHYTONADIONE 10 MG/ML AMPUL PO ONE (09:30)
[2018-01-17] MEDS: LORazepam 2 MG/ML VIAL IV PRN ×4 (10:22→19:40)
[2018-01-17 10:41] LABS: Appearance,Urine HAZY; Bacteria,Urine 0 /hpf (0); Bilirubin,Urine NEG (NEG); Color,Urine YELLOW; Glucose,Urine (UA) NEGATIVE (NEG); Leukocyte Esterase,Urine NEG /uL (NEG); Mucus,Urine FEW /hpf (0); Protein,Urine 30 mg/dL (NEG); Specific Gravity,Urine 1.008 (1.000-1.035); Urine Amorphous Crystals FEW /hpf (0); Urine Blood 0.03 mg/dL (<0.03); Urine RBC < 1 /hpf (0-1); Urine Squamous Epithelial Cell 5 /hpf (0-4); Urine Transitional Epi Cells < 1 /hpf (0-2); Urine WBC 7 /hpf (0-4); Urobilinogen,Urine NEG (NEG)
[2018-01-17] MEDS: FOLIC ACID 1 MG TABLET PO SCH (10:52)
[2018-01-17] MEDS: NICOTINE 14 MG PATCH TOPICAL SCH (10:52)
[2018-01-17] MEDS: THIAMINE 100 MG TABLET PO SCH (10:52)
[2018-01-17] MEDS: 0.9 % SODIUM CHLORIDE 250 ML IV SCH ×2 (11:27→14:29)
[2018-01-17] MEDS: chlordiazePOXIDE 25 MG CAPSULE PO PRN (11:51)
[2018-01-17] MEDS: FERROUS SULFATE 325 MG TABLET PO SCH ×2 (11:56→17:56)
[2018-01-17 12:43] LABS: Blood Urea Nitrogen 7 mg/dl (6-20)
[2018-01-17] MEDS ORDERED: 0.9 % SODIUM CHLORIDE 250 ML IV SCH (13:15)
--- NOTE | 2018-01-17 13:28 | General Surgery Consult Note ---
History of Present Illness Patient information: Note initiated : 01/17/18 at 1:24 pm Service Date, if different from initiated Date: [] Patient: Do Cantu 57 y/o F admitted on 01/15/18 for Rib Pain, Nausea r/t Pain/Rib Fracture. Chief Complaint: [] Reason for consult: other (for evaluation of possible acute cholecystitis) Requesting physician: Lawrence Melendez History of present illness: 57-year-old female admitted with complications of chronic alcoholism with evidence of severe electrolyte abnormalities, toxic hepatitis, anemia. The patient was admitted 2 days ago with these problems.. During workup she had a gallbladder ultrasound done which showed a distended gallbladder with slightly thickened wall with sludge and pericholecystic fluid. In the interim the patient has become quite confused probably due to delirium and cannot answer questions. Evaluation of her labs and ultrasound and CT were done. The patient does have slight thickening of her gallbladder wall but this is minimal. She however has anasarca and early ascites with pleural effusion. This is probably contributing to the thickening of the gallbladder and the pericholecystic fluid. There is no history or physical findings in the record on exam today to suggest that she has acute cholecystitis. She does not have leukocytosis and her sedimentation rate is 11 which is normal. The patient however does have elevated PT-INR suggestive of significant hepatopathy. She has decreased hemoglobin to 7 and there is a history of black stools which suggests that she has an ongoing bleed.she is presently being transfused but she will benefit significantly from fresh frozen plasma infusion sets with her severe hepatopathy she is not going to be able to make clotting factors. Review of Systems - Constitutional anorexia, fatigue, frequent falls, lethargy, malaise, weakness, weight loss - EENT Nose, mouth and throat: dizziness, no sore throat, no throat swelling, no tongue swelling - Cardiovascular chest pain at rest (chest pain is primarily chest wall and left chest), edema, leg edema, palpatations, pedal edema - Respiratory dyspnea on exertion, pain on inspirtation, pain with cough - Gastrointestinal bloating, loose stools, melena - Genitourinary Genitourinary: no difficulty urinating, no urinary hesitancy, no urinary urgency - Musculoskeletal abnormal gait, back pain, myalgias - Integumentary no changing lesions, no new lesions, no pruritus, no rash - Neurological behavioral changes, confusion, dizziness, frequent falls, lack of coordination, tremor(s), weakness - Psychiatric anxiety, behavioral changes, depression - Endocrine fatigue - Hematologic/Lymphatic easy bruising, no easy bleeding, no lymphadenopathy - Allergic/Immunologic no tongue swelling, no throat swelling, no itchy eyes, no uticaria, no wheezing , no lip swelling Past History Past medical history: Congestive heart failure by history diastolic type Gastroesophageal reflux disease Renal failure Malnutrition with failure to thrive Alcohol abuse Anemia of chronic disease Anxiety with depression Alcoholic hepatitis Past surgical history: Left knee surgery Tubal ligation Past family history: History of colon cancer Past social history: Every day smoker Every day drinker Lives alone Medications and Allergies Home Medications Medication Instructions Recorded Confirmed Type No Known Home Meds [No Known Home 01/17/18 01/17/18 History Meds] Allergies Allergy/AdvReac Type Severity Reaction Status Date / Time clarithromycin [From Biaxin] Allergy Intermediate Vomiting Verified 01/08/18 08: 19 Exam Temp Pulse Resp BP Pulse Ox 99.3 F H 114 H 18 111/70 96 01/17/18 12:00 01/17/18 12:00 01/17/18 12:00 01/17/18 12:00 01/17/18 12:00 - General physical appearance well developed, well nourished, no distress, moderate distress, chronically ill - Eyes PERRL, normal ocular movement - ENT normal pinna, normal nares, normal mucosa, no hearing loss, no congestion - Head Head exam IM: Present: atraumatic, normal inspection, normocephalic - Neck no masses, no bruits, trachea midline, no lymphadectomy, no venous distension - Cardiovascular Cardiovascular exam IM: Present: normal rate and rhythm, RRR, +S1, +S2. Absent : irregular rhythm, JVD, tachycardia - Respiratory normal expansion, normal respiratory effort, clear to percussion, clear to auscultation - Abdomen Abdomen: Present: soft (specifically no right upper quadrant epigastric or right flank tenderness; no mass and no distention), non tender, bowel sounds Hernia: Present: none - Genitourinary Present: normal external genitalia - Integumentary Present: no rash, no growths, no abnormal pigmentation - Neurologic Present: disoriented, confused, memory loss - Musculoskeletal Present: other ( gait and stance are not tested) - Psychiatric Present: oriented to person, other ( patient is oriented to person but not place or time; most of her speech is not intelligible) Results - Labs 01/17/18 03:30 01/17/18 11:53 Abnormal lab results 01/17/18 01/17/18 01/17/18 Range/Units 03:30 03:30 03:30 RBC 2.20 L (4.00-5.20) M/mcL Hgb 7.2 L (12.0-15.0) g/dL Hct 21.7 L (36.0-48.0) % RDW 19.9 H (11.5-14.5) % Gran % 94.2 H (38.0-78.0) % Lymph % (Auto) 3.8 L (15.5-49.0) % Gran # 8.8 H (1.8-8.0) K/mcL Lymph # (Auto) 0.4 L (1.5-4.8) K/mcL PT 25.8 H (11.9-14.5) sec INR 2.3 H (0.9-1.1) Sodium 119 L* (133-145) mmol/L Chloride 86 L (96-108) mmol/L Carbon Dioxide 17 L (22-30) mmol/L Glucose 182 H (70-105) mg/dL Hemoglobin A1c (4.0-6.0) % HGB Calcium 8.2 L (8.6-10.4) mg/dl Total Bilirubin 1.5 H (0.0-1.0) mg/dL AST 9445 H (0-37) U/l ALT 3150 H (0-40) U/l Alkaline Phosphatase 147 H (39-117) U/L Total Protein 5.2 L (5.9-8.4) gm/dL Albumin 3.0 L (3.2-5.2) gm/dL Urine Protein (NEG) mg/dL Urine Occult Blood (<0.03) mg/dL Urine WBC (0-4) /hpf Ur Squamous Epith Cells (0-4) /hpf Amorphous Crystals (0) /hpf 01/17/18 01/17/18 01/17/18 Range/Units 03:30 08:15 11:53 RBC (4.00-5.20) M/mcL Hgb (12.0-15.0) g/dL Hct (36.0-48.0) % RDW (11.5-14.5) % Gran % (38.0-78.0) % Lymph % (Auto) (15.5-49.0) % Gran # (1.8-8.0) K/mcL Lymph # (Auto) (1.5-4.8) K/mcL PT (11.9-14.5) sec INR (0.9-1.1) Sodium 120 L (133-145) mmol/L Chloride 90 L (96-108) mmol/L Carbon Dioxide 20 L (22-30) mmol/L Glucose 168 H (70-105) mg/dL Hemoglobin A1c 6.3 H (4.0-6.0) % HGB Calcium (8.6-10.4) mg/dl Total Bilirubin (0.0-1.0) mg/dL AST (0-37) U/l ALT (0-40) U/l Alkaline Phosphatase (39-117) U/L Total Protein (5.9-8.4) gm/dL Albumin (3.2-5.2) gm/dL Urine Protein 30 A (NEG) mg/dL Urine Occult Blood 0.03 A (<0.03) mg/dL Urine WBC 7 H (0-4) /hpf Ur Squamous Epith Cells 5 H (0-4) /hpf Amorphous Crystals Few A (0) /hpf Diabetes panel 01/17/18 01/17/18 01/17/18 Range/Units 03:30 03:30 11:53 Sodium 119 L* 120 L (133-145) mmol/L Potassium 5.1 4.6 (3.3-5.1) mmol/L Chloride 86 L 90 L (96-108) mmol/L Carbon Dioxide 17 L 20 L (22-30) mmol/L BUN 7 7 (6-20) mg/dl Creatinine 0.9 0.7 (0.6-1.1) mg/dl Glucose 182 H 168 H (70-105) mg/dL Hemoglobin A1c 6.3 H (4.0-6.0) % HGB Calcium 8.2 L 8.6 (8.6-10.4) mg/dl AST 9445 H (0-37) U/l ALT 3150 H (0-40) U/l Alkaline Phosphatase 147 H (39-117) U/L Total Protein 5.2 L (5.9-8.4) gm/dL Albumin 3.0 L (3.2-5.2) gm/dL Thyroid panel 01/17/18 Range/Units 03:30 TSH 3.49 (0.27-5.01) uIU/ml Calcium panel 01/17/18 01/17/18 Range/Units 03:30 11:53 Calcium 8.2 L 8.6 (8.6-10.4) mg/dl Albumin 3.0 L (3.2-5.2) gm/dL Pituitary panel 01/17/18 01/17/18 Range/Units 03:30 11:53 Sodium 119 L* 120 L (133-145) mmol/L Potassium 5.1 4.6 (3.3-5.1) mmol/L Chloride 86 L 90 L (96-108) mmol/L Carbon Dioxide 17 L 20 L (22-30) mmol/L BUN 7 7 (6-20) mg/dl Creatinine 0.9 0.7 (0.6-1.1) mg/dl Glucose 182 H 168 H (70-105) mg/dL Calcium 8.2 L 8.6 (8.6-10.4) mg/dl TSH 3.49 (0.27-5.01) uIU/ml Adrenal panel 01/17/18 01/17/18 Range/Units 03:30 11:53 Sodium 119 L* 120 L (133-145) mmol/L Potassium 5.1 4.6 (3.3-5.1) mmol/L Chloride 86 L 90 L (96-108) mmol/L Carbon Dioxide 17 L 20 L (22-30) mmol/L BUN 7 7 (6-20) mg/dl Creatinine 0.9 0.7 (0.6-1.1) mg/dl Glucose 182 H 168 H (70-105) mg/dL Calcium 8.2 L 8.6 (8.6-10.4) mg/dl Total Bilirubin 1.5 H (0.0-1.0) mg/dL AST 9445 H (0-37) U/l ALT 3150 H (0-40) U/l Alkaline Phosphatase 147 H (39-117) U/L Total Protein 5.2 L (5.9-8.4) gm/dL Albumin 3.0 L (3.2-5.2) gm/dL All other labs normal. Assessment and Plan (1) Alcoholic hepatitis Abnormal PT/INR should be corrected with fresh frozen plasma rather than vitamin K since the patient has a depletion of clot factors due to her acute hepatitis and thus will not respond to vitamin K.though the radiologist has read out acute cholecystitis she has no findings to suggest cholecystitis. She does have slight thickening of the gallbladder wall with some sludge in the dependent portion of the gallbladder. The thickening of the gallbladder wall is related to her anasarca and hypoalbuminemia state. The pericholecystic fluid is related to the acute hepatitis, hypoproteinemia.. This is in continuity with the bilateral pleural effusions that she has also. She is not a candidate for cholecystectomy due to all of her other problems related to her alcohol related disease. Status: Acute Qualifiers: Ascites presence: without ascites Qualified Code(s): K70.10 - Alcoholic hepatitis without ascites (2) Hypokalemia Status: Acute (3) Hypomagnesemia Status: Acute (4) Hyponatremia Status: Acute (5) Nausea vomiting and diarrhea Status: Acute Comment: Intractable, peptic ulcer, hepatic alcoholic liver, vs. gallbladder etiologies, or others (6) Tremor Status: Acute (7) Alcohol abuse Status: Chronic (8) Rib fracture Status: Chronic Qualifiers: Encounter type: subsequent encounter Rib fracture type: multiple ribs Fracture type: closed Laterality: left Fracture healing: with delayed healing Qualified Code(s): S22.42XG - Multiple fractures of ribs, left side, subsequent encounter for fracture with delayed healing (9) Acute on chronic blood loss anemia With a history of black stools and her anemia it is probable that this is more related to combination of chronic alcoholism as well as acute toxic hepatopathy with associated lack of clotting factors leading to slow chronic blood loss. Would suggest transfusing 2 at least hemoglobin of 9 and replacing clotting factors with FFP. If she stabilizes she can have follow-up EGD as an outpatient but if her hemoglobin continues to fall she should have upper endoscopy during this hospitalization. PPI therapy is agreed with. Status: Acute
[2018-01-18] MEDS: LIDOCAINE PATCH TOPICAL SCH ×2 (00:32→12:44)
[2018-01-18] MEDS: chlordiazePOXIDE 25 MG CAPSULE PO PRN ×3 (00:37→20:22)
[2018-01-18] MEDS: HYDROcodone/APAP 5/325MG TABLET PO PRN ×2 (00:38→20:21)
[2018-01-18] MEDS: IPRATROPIUM/ALBUTEROL 3 ML AMPUL.NEB NEB SCH ×3 (01:53→12:09)
[2018-01-18] MEDS: LORazepam 2 MG/ML VIAL IV PRN ×2 (04:45→07:40)
[2018-01-18] MEDS: 0.9 % SODIUM CHLORIDE 10 ML SYRINGE IV SCH ×3 (05:35→20:22)
[2018-01-18 05:38] LABS: Basophils # (Auto) 0 K/mcL (0.0-0.3); Basophils % (Auto) 0.2 % (0.0-2.0); Eosinophils # (Auto) 0.2 K/mcL (0.0-0.7); Eosinophils % (Auto) 3.4 % (0.0-7.0); Granulocytes % (Auto) 81.4 % (38.0-78.0); Lymphocytes # (Auto) 0.9 K/mcL (1.5-4.8); Lymphocytes % (Auto) 12.6 % (15.5-49.0); Mean Cell Volume 92.8 fL (80.0-100.0); Mean Corpuscular HGB Conc 34.7 g/dL (31.0-36.0); Mean Corpuscular Hemoglobin 32.2 pg (26.0-34.0); Monocytes # (Auto) 0.2 K/mcL (0.1-0.9); Monocytes % (Auto) 2.4 % (1.0-12.0); Platelet Count 170 K/mcL (140-440); RBC 3.13 M/mcL (4.00-5.20); Red Cell Distribution Width 20.1 % (11.5-14.5)
[2018-01-18] MEDS: 0.9 % SODIUM CHLORIDE 1,000 ML IV SCH (05:50)
[2018-01-18 06:20] LABS: ALT/SGPT 2017 U/l (0-40); Albumin/Globulin Ratio 1.4 (1.0-2.3); Alkaline Phosphatase 154 U/L (39-117); Blood Urea Nitrogen 5 mg/dl (6-20)
[2018-01-18] MEDS: PANTOPRAZOLE 40 MG VIAL IV SCH ×2 (07:40→17:08)
--- NOTE | 2018-01-18 09:18 | Internal Med Progress Note ---
Medical - PN: Subj Patient information: Note initiated : 01/18/18 at 9:18 am Service Date, if different from initiated Date: [] Patient: Do Cantu 57 y/o F admitted on 01/17/18 for Rib Pain, Nausea r/t Pain/Rib Fracture. Chief Complaint: [] Interval history: 57 year old F smoker with chronic alcohol abuse and found to have recurrent hyponatremia and electrolyte abnormalities. She is admited 01/15/18 on telemetry observation for electrolyte replacements. She has multiple alcohol induced and related chronic health issues: malnutrition , failure to thrive, ETOH withdrawal, anemia, electrolyte imbalance,rhabdo, recurrent falls, rib fractures, PNA. She was recently hospitalized at [place] (12/15/17-12/30/17), and she last fell with left rib fractures a month ago. She resumed taking couple shots of whiskey in hopes to relieve her rib pain, but developed nausea vomiting and diarrhea 01/14/18 and came to the ER for help early 01/15/18 morning. She was given NS IV fluid, antiemetics, and found to have hyponatremia, hypoproteinemia, hypo-magnesemia. She is started on IV magnesium, IV and oral K replacement. I discussed with her in great length and explained to her that she needs to quit smoking and alcohol use, completely. We will ask social work to arrange her with assistance 01/16/18 She continued to have intractable nausea & vomiting, other abnormal labs with anemia, elevated INR, elevated total bilirubin. She had also reported to have dark tarry stool at home. We will check CT Pelvis with contrast, TSH, iron panels, B12 folate, Hemoccult screen, change oral to IV Protonix; resume gentle IV fluid if orthostatic positive. Recheck INR 01/17/18 Acute cholecystitis on abdominal ultrasound, worsen hyper-anticoagulation and likely blood loss anemia, stool guaiacs pending, add on lipase and amylase. IV fluids, vitamin K, type and cross for transfusion. Surgery consult on cholecystitis 01/18/18 had alcohol withdrawal DTs yesterday, responded well to CIWA protocol, and blood products (PRBC, FFP) transfusion. Surgical consult with Dr. Juarez: Not cholecystitis, alcoholic [id number]-tamopxgaauuknct induced gallbladder wall thickening. Appreciate Dr. Juarez's input and assistance. She appeared fluid filled with these blood products transfusions, will start Aldactone as propranolol/beta wilfrido stool guaiac, saline lock. Continue monitor coagulation functions, electrolytes, replace as needed. Keep her on CIWA protocol until withdrawal is stabilized and manageable. - Constitutional Vitals: Vital Signs Temp Pulse Resp BP Pulse Ox 98.5 F 95 H 22 127/72 98 01/18/18 04:01 01/18/18 00:01 01/18/18 04:01 01/18/18 04:01 01/18/18 04:01 Period Temp Pulse Resp BP Sys/Manning Pulse Ox Last 24 Hr 98.5 F-99.9 F 86-121 16-22 111-148/70-102 90-100 Intake and Output 01/17/18 01/18/18 01/18/18 21:59 05:59 13:59 Intake Total 1665 / 1665 720 / 720 Output Total 1000 / 1000 3250 / 3250 Balance 665 / 665 -2530 / -2530 Weight 112 lb 14.4 oz Intake & Output: Intake & Output 01/17/18 01/18/18 01/18/18 21:59 05:59 13:59 Intake Total 1665 / 1665 720 / 720 Output Total 1000 / 1000 3250 / 3250 Balance 665 / 665 -2530 / -2530 Weight 112 lb 14.4 oz Intake: IV 1061 / 1061 Sodium Chloride 0.9% 1,000 ml @ 1000 / 1000 100 mls/hr IV .Q10H [facility] Rx#: [id number] Sodium Chloride 0.9% 250 ml @ 61 / 61 20 mls/hr IV .[id number] [facility] Rx#: [id number] Oral 720 / 720 Blood Product 604 / 604 Output: Urine Catheter Amount 3250 / 3250 Void Amount 1000 / 1000 General appearance: mild distress, thin - Head Head exam: Present: atraumatic, normocephalic - Eye Eye exam: Present: EOMI Pupils: Present: normal accommodation, PERRL - ENT ENT exam: Present: mucous membranes moist - Neck Neck exam: Present: full ROM. Absent: meningismus - Respiratory Respiratory exam: Present: rales. Absent: accessory muscle use - Cardiovascular Cardiovascular exam: Present: +S1, +S2, tachycardia. Absent: gallop, rubs - GI/Abdominal GI/Abdominal exam: Present: normal bowel sounds, soft. Absent: guarding, rebound, tenderness - Extremities Exam Extremities exam: Present: full ROM, normal capillary refill. Absent: pedal edema, tenderness - Neurological Exam Neurological exam: Present: alert, CN II-XII intact - Skin Skin exam: Present: intact, warm Medical - PN: Obj Da - Labs CBC & Chem 7: 01/19/18 03:45 01/19/18 03:45 Labs: Abnormal Lab Results 01/18/18 01/18/18 01/17/18 03:40 03:40 11:53 RBC 3.13 L Hgb 10.1 L Hct 29.1 L RDW 20.1 H MPV 7.3 L Gran % 81.4 H Lymph % (Auto) 12.6 L Morgan % (Auto) Gran # Lymph # (Auto) 0.9 L Absolute Retic PT INR Sodium 120 L Chloride 90 L Carbon Dioxide 20 L BUN 5 L Creatinine Glucose 168 H Hemoglobin A1c Calcium 8.5 L Phosphorus Iron TIBC Transferrin % Sat Ferritin Total Bilirubin 3.2 H GGT AST 3657 H ALT 2017 H Alkaline Phosphatase 154 H Total Protein 5.1 L Albumin 3.0 L Globulin 2.1 L Vitamin B12 Folate Urine Protein Urine Occult Blood Urine WBC Ur Squamous Epith Cells Amorphous Crystals 01/17/18 01/17/18 01/17/18 08:15 03:30 03:30 RBC Hgb Hct RDW MPV Gran % Lymph % (Auto) Morgan % (Auto) Gran # Lymph # (Auto) Absolute Retic PT 25.8 H INR 2.3 H Sodium Chloride Carbon Dioxide BUN Creatinine Glucose Hemoglobin A1c 6.3 H Calcium Phosphorus Iron TIBC Transferrin % Sat Ferritin Total Bilirubin GGT AST ALT Alkaline Phosphatase Total Protein Albumin Globulin Vitamin B12 Folate Urine Protein 30 A Urine Occult Blood 0.03 A Urine WBC 7 H Ur Squamous Epith Cells 5 H Amorphous Crystals Few A 01/17/18 01/17/18 01/16/18 03:30 03:30 06:27 RBC 2.20 L Hgb 7.2 L Hct 21.7 L RDW 19.9 H MPV Gran % 94.2 H Lymph % (Auto) 3.8 L Morgan % (Auto) Gran # 8.8 H Lymph # (Auto) 0.4 L Absolute Retic 4.3 H PT INR Sodium 119 L* Chloride 86 L Carbon Dioxide 17 L BUN Creatinine Glucose 182 H Hemoglobin A1c Calcium 8.2 L Phosphorus Iron TIBC Transferrin % Sat Ferritin Total Bilirubin 1.5 H GGT AST 9445 H ALT 3150 H Alkaline Phosphatase 147 H Total Protein 5.2 L Albumin 3.0 L Globulin Vitamin B12 Folate Urine Protein Urine Occult Blood Urine WBC Ur Squamous Epith Cells Amorphous Crystals 01/16/18 01/16/18 01/16/18 06:27 06:27 03:41 RBC Hgb Hct RDW MPV Gran % Lymph % (Auto) Morgan % (Auto) Gran # Lymph # (Auto) Absolute Retic PT INR Sodium Chloride Carbon Dioxide BUN Creatinine Glucose Hemoglobin A1c Calcium Phosphorus Iron 29 L TIBC 204 L Transferrin % Sat 14 L Ferritin 911.5 H Total Bilirubin GGT AST ALT Alkaline Phosphatase Total Protein Albumin Globulin Vitamin B12 1727 H Folate > 20.0 H Urine Protein Urine Occult Blood Urine WBC Ur Squamous Epith Cells Amorphous Crystals 01/16/18 01/16/18 01/15/18 03:40 03:40 15:34 RBC 2.39 L Hgb 7.9 L Hct 23.4 L RDW 19.0 H MPV 7.2 L Gran % 93.3 H Lymph % (Auto) 3.9 L Morgan % (Auto) 0.9 L Gran # Lymph # (Auto) 0.2 L Absolute Retic PT INR Sodium 120 L 125 L Chloride 86 L 88 L Carbon Dioxide 21 L BUN Creatinine 0.5 L Glucose 218 H Hemoglobin A1c Calcium 8.0 L 7.6 L Phosphorus Iron TIBC Transferrin % Sat Ferritin Total Bilirubin 1.9 H GGT AST 1676 H ALT 745 H Alkaline Phosphatase Total Protein 5.2 L Albumin Globulin 2.0 L Vitamin B12 Folate Urine Protein Urine Occult Blood Urine WBC Ur Squamous Epith Cells Amorphous Crystals 01/15/18 01/15/18 15:34 04:20 RBC Hgb Hct RDW MPV Gran % Lymph % (Auto) Morgan % (Auto) Gran # Lymph # (Auto) Absolute Retic PT 21.8 H INR 1.9 H Sodium Chloride Carbon Dioxide BUN Creatinine Glucose Hemoglobin A1c Calcium Phosphorus 2.1 L Iron TIBC Transferrin % Sat Ferritin Total Bilirubin GGT 128 H AST ALT Alkaline Phosphatase Total Protein Albumin Globulin Vitamin B12 Folate Urine Protein Urine Occult Blood Urine WBC Ur Squamous Epith Cells Amorphous Crystals Meds: Medications Acetaminophen (Tylenol) 650 mg PO Q8HP PRN PRN Reason: PAIN/FEVER > 101 Last Admin: 01/17/18 17:56 Dose: 650 mg Hydrocodone Bitart/Acetaminophen ([place] 5/325mg) 1 tab PO Q8HP PRN PRN Reason: PAIN LEVEL 3-6 Last Admin: 01/18/18 00:38 Dose: 1 tab Albuterol/Ipratropium (Duoneb) 3 ml NEB Q6HRT [facility] Last Admin: 01/18/18 07:04 Dose: Not Given Chlordiazepoxide HCl (Librium) 50 mg PO Q4HP PRN PRN Reason: Alcohol Withdrawal Last Admin: 01/18/18 03:52 Dose: 50 mg Ferrous Sulfate (Ferrous Sulfate) 325 mg PO TIDCC [facility] Last Admin: 01/17/18 17:56 Dose: 325 mg Folic Acid (Folic Acid) 1 mg PO DAILY [facility] Last Admin: 01/17/18 10:52 Dose: 1 mg Iron Carb/Multivit/[place]/Folic Acid (Multivitamin W/Minerals) 1 tab PO DAILY [facility] Lidocaine (Lidoderm) 1 patch TOPICAL DAILY@1200 [facility] Last Admin: 01/17/18 11:57 Dose: 1 patch Lidocaine (Lidoderm) 0 patch TOPICAL HS@0000 [facility] Last Admin: 01/18/18 00:32 Dose: Not Given Lorazepam (Ativan) 0 mg IV Q4HP PRN; Protocol PRN Reason: Alcohol Withdrawal Last Admin: 01/18/18 07:40 Dose: 1 mg Metoprolol Tartrate (Lopressor) 25 mg PO DAILY [facility] Morphine Sulfate (Morphine) 0.5 - 1 mg IV Q4HP PRN PRN Reason: Pain Level > 6, breakthrough Last Admin: 01/17/18 20:20 Dose: 0.5 mg Nicotine (Nicoderm) 14 mg TOPICAL DAILY@1000 [facility] Last Admin: 01/17/18 10:52 Dose: 14 mg Ondansetron HCl (Zofran) 4 mg IV Q4-6HP PRN PRN Reason: Nausea And Vomiting Last Admin: 01/16/18 19:35 Dose: 4 mg Pantoprazole Sodium (Protonix) 40 mg IV BIDAC [facility] Last Admin: 01/18/18 07:40 Dose: 40 mg Sodium Chloride (Saline Flush) 10 ml IV Q8 [facility] Last Admin: 01/18/18 05:35 Dose: 10 ml Spironolactone (Aldactone) 25 mg PO DAILY [facility] Thiamine HCl (Vitamin B1) 100 mg PO QDAY [facility] Last Admin: 01/17/18 10:52 Dose: 100 mg Medical - PN: A/P - Time Spent With Patient Total time spent is greater than 50% in coordination of care (as documented) at patient's floor/unit and/or counseling patient: 25 - 35 minutes (1) Alcoholic hepatitis Status: Acute Assessment and plan: As above, H&H holding after transfusion, continue CIWA for alcohol withdrawal, which is improving, check and replace electrolytes, start Aldactone and beta- wilfrido. Current Visit: Yes (2) Alcohol abuse Status: Chronic Current Visit: No (3) Normocytic anemia Problem details: Concern for GI bleeding Status: Acute Assessment and plan: TSH, iron panels, B12 folate, Hemoccult screen, change oral to IV Protonix, recheck coagulation, Hemoccult screen. Current Visit: Yes (4) Hypomagnesemia Status: Acute Current Visit: Yes (5) Hyponatremia Status: Acute Current Visit: Yes (6) Hypokalemia Status: Acute Current Visit: No (7) Nausea vomiting and diarrhea Problem details: Intractable, peptic ulcer, hepatic alcoholic liver, vs. gallbladder etiologies, or others Status: Acute Assessment and plan: CT abd & Pelvis with contrast: Hepatic steatosis, pericholecystic inflammatory changes (Bilateral adrenal nodules. 6 month follow-up examination recommended). Abnormal abdominal ultrasound: Question of cholecystitis. Appreciate surgery consult, Dr. Juarez's, input and assistance Current Visit: Yes (8) Tobacco abuse Status: Chronic Assessment and plan: On nicotine patch. She'll need to have PCP set up for healthcare maintenance, especially helpful with her alcohol & tobacco abuse issues Current Visit: Yes (9) Rib fracture Status: Chronic Assessment and plan: Stable, fall precaution, PT OT eval and rehab. Current Visit: No Medical - PN: Qual - Stroke Symptom Onset Unknown: No - VTE Deep Vein Thrombosis/Pulmonary Embolism Present on Admission: No
[2018-01-18] MEDS: NICOTINE 14 MG PATCH TOPICAL SCH (09:43)
[2018-01-18] MEDS: FOLIC ACID 1 MG TABLET PO SCH (09:43)
[2018-01-18] MEDS: METOPROLOL TARTRATE 25 MG TABLET PO SCH (09:43)
[2018-01-18] MEDS: FERROUS SULFATE 325 MG TABLET PO SCH ×3 (09:43→17:08)
[2018-01-18] MEDS: SPIRONOLACTONE 25 MG TABLET PO SCH (09:43)
[2018-01-18] MEDS: MULTIVIT,THER IRON,CA,FA & MIN 1 TABLET PO SCH (09:43)
[2018-01-18] MEDS: THIAMINE 100 MG TABLET PO SCH (09:49)
[2018-01-18] MEDS ORDERED: IPRATROPIUM/ALBUTEROL 3 ML AMPUL.NEB NEB PRN (12:25)
[2018-01-19] MEDS: LIDOCAINE PATCH TOPICAL SCH ×2 (00:33→12:15)
[2018-01-19] MEDS: 0.9 % SODIUM CHLORIDE 10 ML SYRINGE IV SCH ×2 (05:36→18:35)
[2018-01-19 06:15] LABS: Basophils # (Auto) 0 K/mcL (0.0-0.3); Basophils % (Auto) 0.2 % (0.0-2.0); Eosinophils # (Auto) 0.2 K/mcL (0.0-0.7); Eosinophils % (Auto) 3.4 % (0.0-7.0); Granulocytes % (Auto) 71.2 % (38.0-78.0); Lymphocytes # (Auto) 1.3 K/mcL (1.5-4.8); Lymphocytes % (Auto) 18.3 % (15.5-49.0); Mean Cell Volume 93.9 fL (80.0-100.0); Mean Corpuscular HGB Conc 33.8 g/dL (31.0-36.0); Mean Corpuscular Hemoglobin 31.7 pg (26.0-34.0); Monocytes # (Auto) 0.5 K/mcL (0.1-0.9); Monocytes % (Auto) 6.9 % (1.0-12.0); Platelet Count 184 K/mcL (140-440); RBC 3.31 M/mcL (4.00-5.20); Red Cell Distribution Width 22.1 % (11.5-14.5)
[2018-01-19 07:06] LABS: ALT/SGPT 1208 U/l (0-40); Albumin 2.8 gm/dL (3.2-5.2); Albumin/Globulin Ratio 1.2 (1.0-2.3); Alkaline Phosphatase 155 U/L (39-117); Blood Urea Nitrogen 5 mg/dl (6-20)
[2018-01-19] MEDS ORDERED: MAGNESIUM SULFATE 4 GM/100 ML BAG IV ONE (08:45)
[2018-01-19] MEDS ORDERED: cefTRIAXone 1 GM VIAL IV SCH (09:00)
[2018-01-19] MEDS: FERROUS SULFATE 325 MG TABLET PO SCH ×3 (09:16→18:35)
[2018-01-19] MEDS: SPIRONOLACTONE 25 MG TABLET PO SCH (09:16)
[2018-01-19] MEDS: NICOTINE 14 MG PATCH TOPICAL SCH (09:16)
[2018-01-19] MEDS: FOLIC ACID 1 MG TABLET PO SCH (09:16)
[2018-01-19] MEDS: PANTOPRAZOLE 40 MG VIAL IV SCH ×2 (09:16→18:35)
[2018-01-19] MEDS: MULTIVIT,THER IRON,CA,FA & MIN 1 TABLET PO SCH (09:16)
[2018-01-19] MEDS: POTASSIUM CHLORIDE 20 MEQ TABLET PO SCH ×2 (09:16→18:35)
[2018-01-19] MEDS: METOPROLOL TARTRATE 25 MG TABLET PO SCH (09:16)
[2018-01-19] MEDS: THIAMINE 100 MG TABLET PO SCH (09:18)
--- NOTE | 2018-01-19 12:13 | Internal Med Progress Note ---
Medical - PN: Subj Patient information: Note initiated : 01/19/18 at 11:56 am Service Date, if different from initiated Date: [] Patient: Do Cantu 57 y/o F admitted on 01/17/18 for Rib Pain, Nausea r/t Pain/Rib Fracture. Chief Complaint: [] Interval history: 57 year old F smoker with chronic alcohol abuse and found to have recurrent hyponatremia and electrolyte abnormalities. She is admited 01/15/18 on telemetry observation for electrolyte replacements. She has multiple alcohol induced and related chronic health issues: malnutrition , failure to thrive, ETOH withdrawal, anemia, electrolyte imbalance,rhabdo, recurrent falls, rib fractures, PNA. She was recently hospitalized at [facility] (12/15/17-12/30/17), and she last fell with left rib fractures a month ago. She resumed taking couple shots of whiskey in hopes to relieve her rib pain, but developed nausea vomiting and diarrhea 01/14/18 and came to the ER for help early 01/15/18 morning. She was given NS IV fluid, antiemetics, and found to have hyponatremia, hypoproteinemia, hypo-magnesemia. She is started on IV magnesium, IV and oral K replacement. I discussed with her in great length and explained to her that she needs to quit smoking and alcohol use, completely. We will ask social work to arrange her with assistance 01/16/18 She continued to have intractable nausea & vomiting, other abnormal labs with anemia, elevated INR, elevated total bilirubin. She had also reported to have dark tarry stool at home. We will check CT Pelvis with contrast, TSH, iron panels, B12 folate, Hemoccult screen, change oral to IV Protonix; resume gentle IV fluid if orthostatic positive. Recheck INR 01/17/18 Acute cholecystitis on abdominal ultrasound, worsen hyper-anticoagulation and likely blood loss anemia, stool guaiacs pending, add on lipase and amylase. IV fluids, vitamin K, type and cross for transfusion. Surgery consult on cholecystitis 01/18/18 had alcohol withdrawal DTs yesterday, responded well to CIWA protocol, and blood products (PRBC, FFP) transfusion. Surgical consult with Dr. Juarez: Not cholecystitis, alcoholic pcnnbfiox-pjmlvdzd-ruvddgiebnltiyw induced gallbladder wall thickening. Appreciate Dr. Juarez's input and assistance. She appeared fluid filled with these blood products transfusions, will start Aldactone as propranolol/beta wilfrido stool guaiac, saline lock. Continue monitor coagulation functions, electrolytes, replace as needed. Keep her on CIWA protocol until withdrawal is stabilized and manageable. 01/19/2018 overnight, improving with less use of Ativan and only on maintenance low-dose Librium. Electrolytes deficiency magnesium 1.1, potassium still 3.1, coags normalized INR is 1.1, liver enzymes improved today, however still hypoalbuminemic 2.8. Preliminary urine culture with gram-negative bacilli. --PT to rehab, replace electrolyte magnesium and potassium, Rocephin antibiotics for UTI, pending final culture sensitivity from urine cultures. --Likely will need extended rehab, however she is self-pay, social is looking into her situation. --MANNY Alonso, ambulate with PT, - Constitutional Vitals: Vital Signs Temp Pulse Resp BP Pulse Ox 99.0 F H 75 18 92/56 96 01/19/18 10:00 01/19/18 10:00 01/19/18 10:00 01/19/18 10:00 01/19/18 10:00 Period Temp Pulse Resp BP Sys/Manning Pulse Ox Last 24 Hr 97.6 F-99.4 F 75-97 16-20 92-152/56-97 94-98 Intake and Output 01/18/18 01/19/18 01/19/18 21:59 05:59 13:59 Intake Total 120 / 120 400 / 400 120 / 120 Output Total 1150 / 1150 1350 / 1350 Balance -1030 / -1030 -950 / -950 120 / 120 Weight 117 lb 1.6 oz Intake & Output: Intake & Output 01/18/18 01/19/18 01/19/18 21:59 05:59 13:59 Intake Total 120 / 120 400 / 400 120 / 120 Output Total 1150 / 1150 1350 / 1350 Balance -1030 / -1030 -950 / -950 120 / 120 Weight 117 lb 1.6 oz Intake: Oral 120 / 120 400 / 400 120 / 120 Output: Urine Catheter Amount 1150 / 1150 1350 / 1350 Other: Meal Lunch Breakfast Percent of Meal Consumed 75% 25% Feeding Ability Needs Supervision Needs Supervision # Bowel Movements 0 Medical - PN: Obj Da - Labs CBC & Chem 7: 07/12/18 03:45 01/19/18 03:45 Labs: Abnormal Lab Results 01/19/18 01/19/18 01/18/18 03:45 03:45 03:40 RBC 3.31 L Hgb 10.5 L Hct 31.1 L RDW 22.1 H MPV 7.1 L Gran % Lymph % (Auto) Gran # Lymph # (Auto) 1.3 L PT INR Sodium Potassium 3.1 L Chloride Carbon Dioxide BUN 5 L 5 L Creatinine 0.5 L Glucose Hemoglobin A1c Calcium 8.3 L 8.5 L Magnesium 1.1 L Iron TIBC Transferrin % Sat Ferritin Total Bilirubin 1.5 H 3.2 H AST 576 H 3657 H ALT 1208 H 2017 H Alkaline Phosphatase 155 H 154 H Total Protein 5.1 L 5.1 L Albumin 2.8 L 3.0 L Globulin 2.1 L Urine Protein Urine Occult Blood Urine WBC Ur Squamous Epith Cells Amorphous Crystals 01/18/18 01/17/18 01/17/18 03:40 11:53 08:15 RBC 3.13 L Hgb 10.1 L Hct 29.1 L RDW 20.1 H MPV 7.3 L Gran % 81.4 H Lymph % (Auto) 12.6 L Gran # Lymph # (Auto) 0.9 L PT INR Sodium 120 L Potassium Chloride 90 L Carbon Dioxide 20 L BUN Creatinine Glucose 168 H Hemoglobin A1c Calcium Magnesium Iron TIBC Transferrin % Sat Ferritin Total Bilirubin AST ALT Alkaline Phosphatase Total Protein Albumin Globulin Urine Protein 30 A Urine Occult Blood 0.03 A Urine WBC 7 H Ur Squamous Epith Cells 5 H Amorphous Crystals Few A 01/17/18 01/17/18 01/17/18 03:30 03:30 03:30 RBC Hgb Hct RDW MPV Gran % Lymph % (Auto) Gran # Lymph # (Auto) PT 25.8 H INR 2.3 H Sodium 119 L* Potassium Chloride 86 L Carbon Dioxide 17 L BUN Creatinine Glucose 182 H Hemoglobin A1c 6.3 H Calcium 8.2 L Magnesium Iron TIBC Transferrin % Sat Ferritin Total Bilirubin 1.5 H AST 9445 H ALT 3150 H Alkaline Phosphatase 147 H Total Protein 5.2 L Albumin 3.0 L Globulin Urine Protein Urine Occult Blood Urine WBC Ur Squamous Epith Cells Amorphous Crystals 01/17/18 01/16/18 03:30 03:41 RBC 2.20 L Hgb 7.2 L Hct 21.7 L RDW 19.9 H MPV Gran % 94.2 H Lymph % (Auto) 3.8 L Gran # 8.8 H Lymph # (Auto) 0.4 L PT INR Sodium Potassium Chloride Carbon Dioxide BUN Creatinine Glucose Hemoglobin A1c Calcium Magnesium Iron 29 L TIBC 204 L Transferrin % Sat 14 L Ferritin 911.5 H Total Bilirubin AST ALT Alkaline Phosphatase Total Protein Albumin Globulin Urine Protein Urine Occult Blood Urine WBC Ur Squamous Epith Cells Amorphous Crystals Meds: Medications Acetaminophen (Tylenol) 650 mg PO Q8HP PRN PRN Reason: PAIN/FEVER > 101 Last Admin: 01/17/18 17:56 Dose: 650 mg Hydrocodone Bitart/Acetaminophen ([place] 5/325mg) 1 tab PO Q8HP PRN PRN Reason: PAIN LEVEL 3-6 Last Admin: 01/18/18 20:21 Dose: 1 tab Albuterol/Ipratropium (Duoneb) 3 ml NEB Q6HP PRN PRN Reason: Shortness Of Breath Or Wheezing Ceftriaxone Sodium (Rocephin) 1 gm IV Q24H [facility] Last Admin: 01/19/18 11:45 Dose: 1 gm Chlordiazepoxide HCl (Librium) 50 mg PO Q4HP PRN PRN Reason: Alcohol Withdrawal Last Admin: 01/18/18 20:22 Dose: 50 mg Ferrous Sulfate (Ferrous Sulfate) 325 mg PO TIDCC [facility] [place] Last Admin: 01/19/18 09:16 Dose: 325 mg Folic Acid (Folic Acid) 1 mg PO DAILY [facility] [place] Last Admin: 01/19/18 09:16 Dose: 1 mg Iron Carb/Multivit/[place]/Folic Acid (Multivitamin W/Minerals) 1 tab PO DAILY [facility] [place] Last Admin: 01/19/18 09:16 Dose: 1 tab Lidocaine (Lidoderm) 1 patch TOPICAL DAILY@1200 [facility] [place] Last Admin: 01/18/18 12:44 Dose: 1 patch Lidocaine (Lidoderm) 0 patch TOPICAL HS@0000 [facility] [place] Last Admin: 01/19/18 00:33 Dose: 1 patch Lorazepam (Ativan) 0 mg IV Q4HP PRN; Protocol PRN Reason: Alcohol Withdrawal Last Admin: 01/18/18 07:40 Dose: 1 mg Metoprolol Tartrate (Lopressor) 25 mg PO DAILY [facility] [place] Last Admin: 01/19/18 09:16 Dose: 25 mg Morphine Sulfate (Morphine) 0.5 - 1 mg IV Q4HP PRN PRN Reason: Pain Level > 6, breakthrough Last Admin: 01/18/18 20:21 Dose: 0.5 mg Nicotine (Nicoderm) 14 mg TOPICAL DAILY@1000 [facility] [place] Last Admin: 01/19/18 09:16 Dose: 14 mg Ondansetron HCl (Zofran) 4 mg IV Q4-6HP PRN PRN Reason: Nausea And Vomiting Last Admin: 01/16/18 19:35 Dose: 4 mg Pantoprazole Sodium (Protonix) 40 mg IV BIDAC [facility] [place] Last Admin: 01/19/18 09:16 Dose: 40 mg Potassium Chloride (Kdur) 40 meq PO BIDCC [facility] [place] Last Admin: 01/19/18 09:16 Dose: 40 meq Sodium Chloride (Saline Flush) 10 ml IV Q8 [facility] [place] Last Admin: 01/19/18 05:36 Dose: 10 ml Spironolactone (Aldactone) 25 mg PO DAILY [facility] [place] Last Admin: 01/19/18 09:16 Dose: 25 mg Thiamine HCl (Vitamin B1) 100 mg PO QDAY [facility] [place] Last Admin: 01/19/18 09:18 Dose: 100 mg Medical - PN: A/P - Time Spent With Patient Total time spent is greater than 50% in coordination of care (as documented) at patient's floor/unit and/or counseling patient: 25 - 35 minutes (1) Alcoholic hepatitis Status: Acute Assessment and plan: See above description. Current Visit: Yes (2) Alcohol abuse Status: Chronic Assessment and plan: strongly advised her to completely stop smoking and alcohol use, as above. She'll need to have PCP set up for healthcare maintenance, especially helpful with her alcohol & tobacco abuse issues See above discussion Current Visit: No (3) Normocytic anemia Problem details: Concern for GI bleeding Status: Acute Assessment and plan: TSH, iron panels, B12 folate, Hemoccult screen, change oral to IV Protonix, recheck coagulation, Hemoccult screen. See above, H&H holding, no active bleeding. Current Visit: Yes (4) Hypomagnesemia Status: Acute Assessment and plan: See above Current Visit: Yes (5) Hypokalemia Status: Acute Assessment and plan: See above Current Visit: No (6) Hyponatremia Status: Acute Assessment and plan: See above, resolved Current Visit: Yes (7) Nausea vomiting and diarrhea Problem details: Intractable, peptic ulcer, hepatic alcoholic liver, vs. gallbladder etiologies, or others Status: Acute Assessment and plan: See above. Not cholecystitis, alcoholic vvvxeinuh-zhzhnpgr-jqwjiauckcuseye induced gallbladder wall thickening. Appreciate Dr. Juarez's input and assistance Current Visit: Yes (8) Tobacco abuse Status: Chronic Assessment and plan: On nicotine patch. She'll need to have PCP set up for healthcare maintenance, especially helpful with her alcohol & tobacco abuse issues Current Visit: Yes (9) Rib fracture Status: Chronic Assessment and plan: Stable, fall precaution, PT OT rehab Current Visit: No Medical - PN: Qual - Stroke Symptom Onset Unknown: No - VTE Deep Vein Thrombosis/Pulmonary Embolism Present on Admission: No
[2018-01-19 13:09] LABS: Appearance,Urine HAZY; Bacteria,Urine FEW /hpf (0); Bilirubin,Urine NEG (NEG); Color,Urine YELLOW; Glucose,Urine (UA) 150 mg/dL (NEG); Leukocyte Esterase,Urine 500 /uL (NEG); Mucus,Urine FEW /hpf (0); Protein,Urine 30 mg/dL (NEG); Specific Gravity,Urine 1.024 (1.000-1.035); Urine Amorphous Crystals FEW /hpf (0); Urine Blood 0.2 mg/dL (<0.03); Urine Budding Yeast FEW /hpf (0); Urine Hyaline Cast 17 /lpf (0-2); Urine RBC > 182 /hpf (0-1); Urine Squamous Epithelial Cell 0 /hpf (0-4); Urine WBC > 182 /hpf (0-4)
[2018-01-19] MEDS: HYDROcodone/APAP 5/325MG TABLET PO PRN (19:28)
[2018-01-20] MEDS: 0.9 % SODIUM CHLORIDE 10 ML SYRINGE IV SCH ×4 (00:30→22:34)
[2018-01-20] MEDS: LIDOCAINE PATCH TOPICAL SCH ×2 (00:30→14:42)
[2018-01-20] MEDS ORDERED: MAGNESIUM HYDROXIDE 30 ML ORAL.SUSP PO PRN ×2 (04:30→12:55)
[2018-01-20] MEDS ORDERED: BISACODYL 10 MG SUPP.RECT PR PRN ×2 (04:30→12:55)
[2018-01-20 06:25] LABS: Basophils # (Auto) 0 K/mcL (0.0-0.3); Basophils % (Auto) 0.1 % (0.0-2.0); Eosinophils # (Auto) 0.2 K/mcL (0.0-0.7); Eosinophils % (Auto) 3.8 % (0.0-7.0); Granulocytes % (Auto) 58.4 % (38.0-78.0); Lymphocytes # (Auto) 1.4 K/mcL (1.5-4.8); Lymphocytes % (Auto) 22.3 % (15.5-49.0); Mean Cell Volume 95.3 fL (80.0-100.0); Mean Corpuscular HGB Conc 33.3 g/dL (31.0-36.0); Mean Corpuscular Hemoglobin 31.8 pg (26.0-34.0); Monocytes % (Auto) 15.4 % (1.0-12.0); Platelet Count 195 K/mcL (140-440); RBC 3.23 M/mcL (4.00-5.20); Red Cell Distribution Width 20.7 % (11.5-14.5)
[2018-01-20 06:44] LABS: Albumin 2.8 gm/dL (3.2-5.2); Albumin/Globulin Ratio 1.2 (1.0-2.3); Alkaline Phosphatase 157 U/L (39-117); Blood Urea Nitrogen 8 mg/dl (6-20)
[2018-01-20 07:00] LABS: ALT/SGPT 784 U/l (0-40)
--- NOTE | 2018-01-20 07:03 | Internal Med Progress Note ---
Medical - PN: Subj Patient information: Note initiated : 01/20/18 at 7:03 am Service Date, if different from initiated Date: [] Patient: Do Cantu 57 y/o F admitted on 01/17/18 for Rib Pain, Nausea r/t Pain/Rib Fracture. Chief Complaint: [] Interval history: 57 year old F smoker with chronic alcohol abuse and found to have recurrent hyponatremia and electrolyte abnormalities. She is admited 01/15/18 on telemetry observation for electrolyte replacements. She has multiple alcohol induced and related chronic health issues: malnutrition , failure to thrive, ETOH withdrawal, anemia, electrolyte imbalance,rhabdo, recurrent falls, rib fractures, PNA. She was recently hospitalized at [facility] (12/15/17-12/30/17), and she last fell with left rib fractures a month ago. She resumed taking couple shots of whiskey in hopes to relieve her rib pain, but developed nausea vomiting and diarrhea 01/14/18 and came to the ER for help early 01/15/18 morning. She was given NS IV fluid, antiemetics, and found to have hyponatremia, hypoproteinemia, hypo-magnesemia. She is started on IV magnesium, IV and oral K replacement. I discussed with her in great length and explained to her that she needs to quit smoking and alcohol use, completely. We will ask social work to arrange her with assistance 01/16/18 She continued to have intractable nausea & vomiting, other abnormal labs with anemia, elevated INR, elevated total bilirubin. She had also reported to have dark tarry stool at home. We will check CT Pelvis with contrast, TSH, iron panels, B12 folate, Hemoccult screen, change oral to IV Protonix; resume gentle IV fluid if orthostatic positive. Recheck INR 01/17/18 Acute cholecystitis on abdominal ultrasound, worsen hyper-anticoagulation and likely blood loss anemia, stool guaiacs pending, add on lipase and amylase. IV fluids, vitamin K, type and cross for transfusion. Surgery consult on cholecystitis 01/18/18 had alcohol withdrawal DTs yesterday, responded well to CIWA protocol, and blood products (PRBC, FFP) transfusion. Surgical consult with Dr. Juarez: Not cholecystitis, alcoholic wcendblic-xkoqufcj-vscudckkbmfxlup induced gallbladder wall thickening. Appreciate Dr. Juarez's input and assistance. She appeared fluid filled with these blood products transfusions, will start Aldactone as propranolol/beta wilfrido stool guaiac, saline lock. Continue monitor coagulation functions, electrolytes, replace as needed. Keep her on CIWA protocol until withdrawal is stabilized and manageable. 01/19/2018 overnight, improving with less use of Ativan and only on maintenance low-dose Librium. Electrolytes deficiency magnesium 1.1, potassium still 3.1, coags normalized INR is 1.1, liver enzymes improved today, however still hypoalbuminemic 2.8. Preliminary urine culture with gram-negative bacilli. --PT to rehab, replace electrolyte magnesium and potassium, Rocephin antibiotics for UTI, pending final culture sensitivity from urine cultures. --Likely will need extended rehab, however she is self-pay, social is looking into her situation. --MANNY Alonso, ambulate with PT, 01/20/2018 Urine culture with Klebsiella pneumonia, ampicillin resistant, on Rocephin. --We will change Rocephin to oral Cipro. - Constitutional Vitals: Vital Signs Temp Pulse Resp BP Pulse Ox 97.8 F 87 18 126/87 94 01/20/18 03:49 01/20/18 03:49 01/20/18 03:49 01/20/18 03:49 01/20/18 03:49 Period Temp Pulse Resp BP Sys/Manning Pulse Ox Last 24 Hr 97.8 F-99.1 F 75-91 16-20 80-127/54-87 91-97 Intake and Output 01/19/18 01/20/18 01/20/18 21:59 05:59 13:59 Intake Total 410 / 410 600 / 600 Output Total 400 / 400 450 / 450 Balance 150 / 150 Weight 116 lb 8 oz Intake & Output: Intake & Output 01/19/18 01/20/18 01/20/18 21:59 05:59 13:59 Intake Total 410 / 410 600 / 600 Output Total 400 / 400 450 / 450 Balance 150 / 150 Weight 116 lb 8 oz Intake: Oral 410 / 410 600 / 600 Output: Urine Catheter Amount 400 / 400 450 / 450 Other: Meal Nourishment/Supplement Nourishment/Supplement Percent of Meal Consumed 75% 100% Feeding Ability Assist with Tray Set Up # Bowel Movements 0 Medical - PN: Obj Da - Labs CBC & Chem 7: 01/20/18 03:40 01/20/18 03:40 Labs: Abnormal Lab Results 01/20/18 01/20/18 01/19/18 03:40 03:40 12:37 RBC 3.23 L Hgb 10.3 L Hct 30.8 L RDW 20.7 H MPV Gran % Lymph % (Auto) [place] % (Auto) 15.4 H Lymph # (Auto) 1.4 L [place] # (Auto) 1.0 H PT INR Sodium Potassium Chloride Carbon Dioxide BUN Creatinine 0.5 L Glucose Calcium 8.5 L Magnesium Total Bilirubin AST 176 H ALT 784 H Alkaline Phosphatase 157 H Total Protein 5.2 L Albumin 2.8 L Globulin Urine Protein 30 A Urine Glucose (UA) 150 A Urine Occult Blood 0.2 A Urine Nitrate Pos A Urine Urobilinogen 4.0 A Ur Leukocyte Esterase 500 A Urine RBC > 182 H Urine WBC > 182 H Ur Squamous Epith Cells Amorphous Crystals Few A Urine Bacteria Few A Hyaline Casts 17 H Urine Yeast (Budding) Few A 01/19/18 01/19/18 01/18/18 03:45 03:45 03:40 RBC 3.31 L Hgb 10.5 L Hct 31.1 L RDW 22.1 H MPV 7.1 L Gran % Lymph % (Auto) [place] % (Auto) Lymph # (Auto) 1.3 L [place] # (Auto) PT INR Sodium Potassium 3.1 L Chloride Carbon Dioxide BUN 5 L 5 L Creatinine 0.5 L Glucose Calcium 8.3 L 8.5 L Magnesium 1.1 L Total Bilirubin 1.5 H 3.2 H AST 576 H 3657 H ALT 1208 H 2017 H Alkaline Phosphatase 155 H 154 H Total Protein 5.1 L 5.1 L Albumin 2.8 L 3.0 L Globulin 2.1 L Urine Protein Urine Glucose (UA) Urine Occult Blood Urine Nitrate Urine Urobilinogen Ur Leukocyte Esterase Urine RBC Urine WBC Ur Squamous Epith Cells Amorphous Crystals Urine Bacteria Hyaline Casts Urine Yeast (Budding) 01/18/18 01/17/18 01/17/18 03:40 11:53 08:15 RBC 3.13 L Hgb 10.1 L Hct 29.1 L RDW 20.1 H MPV 7.3 L Gran % 81.4 H Lymph % (Auto) 12.6 L [place] % (Auto) Lymph # (Auto) 0.9 L [place] # (Auto) PT INR Sodium 120 L Potassium Chloride 90 L Carbon Dioxide 20 L BUN Creatinine Glucose 168 H Calcium Magnesium Total Bilirubin AST ALT Alkaline Phosphatase Total Protein Albumin Globulin Urine Protein 30 A Urine Glucose (UA) Urine Occult Blood 0.03 A Urine Nitrate Urine Urobilinogen Ur Leukocyte Esterase Urine RBC Urine WBC 7 H Ur Squamous Epith Cells 5 H Amorphous Crystals Few A Urine Bacteria Hyaline Casts Urine Yeast (Budding) 01/17/18 01/17/18 03:30 03:30 RBC Hgb Hct RDW MPV Gran % Lymph % (Auto) [place] % (Auto) Lymph # (Auto) [place] # (Auto) PT 25.8 H INR 2.3 H Sodium Potassium Chloride Carbon Dioxide BUN Creatinine Glucose Calcium Magnesium Total Bilirubin AST 9445 H ALT Alkaline Phosphatase Total Protein Albumin Globulin Urine Protein Urine Glucose (UA) Urine Occult Blood Urine Nitrate Urine Urobilinogen Ur Leukocyte Esterase Urine RBC Urine WBC Ur Squamous Epith Cells Amorphous Crystals Urine Bacteria Hyaline Casts Urine Yeast (Budding) Meds: Medications Acetaminophen (Tylenol) 650 mg PO Q8HP PRN PRN Reason: PAIN/FEVER > 101 Last Admin: 01/17/18 17:56 Dose: 650 mg Hydrocodone Bitart/Acetaminophen ([place] 5/325mg) 1 tab PO Q8HP PRN PRN Reason: PAIN LEVEL 3-6 Last Admin: 01/19/18 19:28 Dose: 1 tab Albuterol/Ipratropium (Duoneb) 3 ml NEB Q6HP PRN PRN Reason: Shortness Of Breath Or Wheezing Bisacodyl (Dulcolax) 10 mg TX Q2-3DAYS PRN PRN Reason: Constipation Chlordiazepoxide HCl (Librium) 50 mg PO Q4HP PRN PRN Reason: Alcohol Withdrawal Last Admin: 01/18/18 20:22 Dose: 50 mg Ciprofloxacin (Cipro) 500 mg PO BID [facility] Docusate Sodium (Colace) 100 mg PO BID [facility] Ferrous Sulfate (Ferrous Sulfate) 325 mg PO TIDCC [facility] Last Admin: 01/19/18 18:35 Dose: 325 mg Folic Acid (Folic Acid) 1 mg PO DAILY [facility] Last Admin: 01/19/18 09:16 Dose: 1 mg Iron Carb/Multivit/[employer]/Folic Acid (Multivitamin W/Minerals) 1 tab PO DAILY [facility] Last Admin: 01/19/18 09:16 Dose: 1 tab Lidocaine (Lidoderm) 1 patch TOPICAL DAILY@1200 [facility] Last Admin: 01/19/18 12:15 Dose: Not Given Lidocaine (Lidoderm) 0 patch TOPICAL HS@0000 [facility] Last Admin: 01/20/18 00:30 Dose: 1 patch Lorazepam (Ativan) 0 mg IV Q4HP PRN; Protocol PRN Reason: Alcohol Withdrawal Last Admin: 01/18/18 07:40 Dose: 1 mg Magnesium Hydroxide (Milk Of Magnesia) 30 ml PO DAILYP PRN PRN Reason: Constipation Metoprolol Tartrate (Lopressor) 25 mg PO DAILY [facility] Last Admin: 01/19/18 09:16 Dose: 25 mg Morphine Sulfate (Morphine) 0.5 - 1 mg IV Q4HP PRN PRN Reason: Pain Level > 6, breakthrough Last Admin: 01/18/18 20:21 Dose: 0.5 mg Nicotine (Nicoderm) 14 mg TOPICAL DAILY@1000 [facility] Last Admin: 01/19/18 09:16 Dose: 14 mg Ondansetron HCl (Zofran) 4 mg IV Q4-6HP PRN PRN Reason: Nausea And Vomiting Last Admin: 01/16/18 19:35 Dose: 4 mg Pantoprazole Sodium (Protonix) 40 mg IV BIDAC [facility] Last Admin: 01/19/18 18:35 Dose: 40 mg Potassium Chloride (Kdur) 40 meq PO BIDCC [facility] Last Admin: 01/19/18 18:35 Dose: 40 meq Sodium Chloride (Saline Flush) 10 ml IV Q8 [facility] Last Admin: 01/20/18 00:30 Dose: 10 ml Spironolactone (Aldactone) 25 mg PO DAILY [facility] Last Admin: 01/19/18 09:16 Dose: 25 mg Thiamine HCl (Vitamin B1) 100 mg PO QDAY [facility] Last Admin: 01/19/18 09:18 Dose: 100 mg Medical - PN: A/P - Time Spent With Patient Total time spent is greater than 50% in coordination of care (as documented) at patient's floor/unit and/or counseling patient: (1) Alcoholic hepatitis Status: Acute Assessment and plan: See above description. Current Visit: Yes (2) Alcohol abuse Status: Chronic Assessment and plan: strongly advised her to completely stop smoking and alcohol use, as above. She'll need to have PCP set up for healthcare maintenance, especially helpful with her alcohol & tobacco abuse issues See above discussion Current Visit: No (3) Normocytic anemia Problem details: Concern for GI bleeding Status: Acute Assessment and plan: TSH, iron panels, B12 folate, Hemoccult screen, change oral to IV Protonix, recheck coagulation, Hemoccult screen. See above, H&H holding, no active bleeding. Current Visit: Yes (4) Hypomagnesemia Status: Acute Assessment and plan: See above Current Visit: Yes (5) Hypokalemia Status: Acute Assessment and plan: See above Current Visit: No (6) Hyponatremia Status: Acute Assessment and plan: See above, resolved Current Visit: Yes (7) Nausea vomiting and diarrhea Problem details: Intractable, peptic ulcer, hepatic alcoholic liver, vs. gallbladder etiologies, or others Status: Acute Assessment and plan: See above. Not cholecystitis, alcoholic tdadelqvo-gqestozb-mqjvfuwofiyvufx induced gallbladder wall thickening. Appreciate Dr. Juarez's input and assistance Current Visit: Yes (8) Tobacco abuse Status: Chronic Assessment and plan: On nicotine patch. She'll need to have PCP set up for healthcare maintenance, especially helpful with her alcohol & tobacco abuse issues Current Visit: Yes (9) Rib fracture Status: Chronic Assessment and plan: Stable, fall precaution, PT OT rehab Current Visit: No Medical - PN: Qual - Stroke Symptom Onset Unknown: No - VTE Deep Vein Thrombosis/Pulmonary Embolism Present on Admission: No
[2018-01-20] MEDS: HYDROcodone/APAP 5/325MG TABLET PO PRN ×3 (07:43→22:32)
[2018-01-20] MEDS: PANTOPRAZOLE 40 MG VIAL IV SCH ×2 (07:44→17:15)
[2018-01-20] MEDS: FERROUS SULFATE 325 MG TABLET PO SCH ×3 (08:54→17:15)
[2018-01-20] MEDS: SPIRONOLACTONE 25 MG TABLET PO SCH (08:55)
[2018-01-20] MEDS: METOPROLOL TARTRATE 25 MG TABLET PO SCH (08:55)
[2018-01-20] MEDS: THIAMINE 100 MG TABLET PO SCH (08:55)
[2018-01-20] MEDS: POTASSIUM CHLORIDE 20 MEQ TABLET PO SCH (08:55)
[2018-01-20] MEDS: MULTIVIT,THER IRON,CA,FA & MIN 1 TABLET PO SCH (08:55)
[2018-01-20] MEDS: FOLIC ACID 1 MG TABLET PO SCH (08:55)
[2018-01-20] MEDS ORDERED: DOCUSATE SODIUM 100 MG CAPSULE PO SCH (09:00)
[2018-01-20] MEDS ORDERED: CIPROFLOXACIN 500 MG TABLET PO SCH (09:00)
[2018-01-20] MEDS: NICOTINE 14 MG PATCH TOPICAL SCH (10:42)
[2018-01-20] MEDS ORDERED: LORazepam 2 MG/ML VIAL IV PRN (12:55)
[2018-01-20] MEDS ORDERED: ONDANSETRON 4 MG/2 ML VIAL IV PRN (12:55)
[2018-01-20] MEDS ORDERED: ACETAMINOPHEN 325 MG TABLET PO PRN (12:55)
[2018-01-20] MEDS ORDERED: chlordiazePOXIDE 25 MG CAPSULE PO PRN (12:55)
[2018-01-20] MEDS ORDERED: IPRATROPIUM/ALBUTEROL 3 ML AMPUL.NEB NEB PRN (12:55)
[2018-01-20] MEDS: DOCUSATE SODIUM 100 MG CAPSULE PO SCH (21:35)
[2018-01-20] MEDS: CIPROFLOXACIN 500 MG TABLET PO SCH (21:36)
[2018-01-21 05:38] LABS: Basophils # (Auto) 0 K/mcL (0.0-0.3); Basophils % (Auto) 0.3 % (0.0-2.0); Eosinophils # (Auto) 0.2 K/mcL (0.0-0.7); Eosinophils % (Auto) 3.2 % (0.0-7.0); Granulocytes % (Auto) 51.4 % (38.0-78.0); Lymphocytes # (Auto) 1.6 K/mcL (1.5-4.8); Lymphocytes % (Auto) 28.7 % (15.5-49.0); Mean Corpuscular HGB Conc 32.8 g/dL (31.0-36.0); Mean Corpuscular Hemoglobin 31.5 pg (26.0-34.0); Monocytes # (Auto) 0.9 K/mcL (0.1-0.9); Monocytes % (Auto) 16.4 % (1.0-12.0); Platelet Count 198 K/mcL (140-440); RBC 3.13 M/mcL (4.00-5.20); Red Cell Distribution Width 21.1 % (11.5-14.5)
[2018-01-21] MEDS: 0.9 % SODIUM CHLORIDE 10 ML SYRINGE IV SCH ×3 (05:41→20:48)
[2018-01-21 06:42] LABS: ALT/SGPT 559 U/l (0-40); Albumin 2.8 gm/dL (3.2-5.2); Albumin/Globulin Ratio 1.2 (1.0-2.3); Alkaline Phosphatase 133 U/L (39-117); Blood Urea Nitrogen 9 mg/dl (6-20)
[2018-01-21] MEDS: PANTOPRAZOLE 40 MG VIAL IV SCH ×2 (07:16→16:39)
[2018-01-21] MEDS: DOCUSATE SODIUM 100 MG CAPSULE PO SCH ×2 (08:25→20:48)
[2018-01-21] MEDS: MULTIVIT,THER IRON,CA,FA & MIN 1 TABLET PO SCH (08:26)
[2018-01-21] MEDS: SPIRONOLACTONE 25 MG TABLET PO SCH (08:26)
[2018-01-21] MEDS: THIAMINE 100 MG TABLET PO SCH (08:26)
[2018-01-21] MEDS: FOLIC ACID 1 MG TABLET PO SCH (08:26)
[2018-01-21] MEDS: FERROUS SULFATE 325 MG TABLET PO SCH ×3 (08:26→16:50)
[2018-01-21] MEDS: CIPROFLOXACIN 500 MG TABLET PO SCH ×2 (08:26→20:48)
[2018-01-21] MEDS: HYDROcodone/APAP 5/325MG TABLET PO PRN ×2 (08:26→16:46)
[2018-01-21] MEDS: METOPROLOL TARTRATE 25 MG TABLET PO SCH ×2 (08:36→20:48)
[2018-01-21] MEDS ORDERED: METOPROLOL TARTRATE 25 MG TABLET PO SCH (09:00)
[2018-01-21] MEDS: NICOTINE 14 MG PATCH TOPICAL SCH (10:16)
--- NOTE | 2018-01-21 11:18 | Internal Med Progress Note ---
Medical - PN: Subj Patient information: Note initiated : 01/21/18 at 11:18 am Service Date, if different from initiated Date: [] Patient: Do Cantu 57 y/o F admitted on 01/17/18 for Rib Pain, Nausea r/t Pain/Rib Fracture. Chief Complaint: [] Interval history: 57 year old F smoker with chronic alcohol abuse and found to have recurrent hyponatremia and electrolyte abnormalities. She is admited 01/15/18 on telemetry observation for electrolyte replacements. She has multiple alcohol induced and related chronic health issues: malnutrition , failure to thrive, ETOH withdrawal, anemia, electrolyte imbalance,rhabdo, recurrent falls, rib fractures, PNA. She was recently hospitalized at [facility] (12/15/17-12/30/17), and she last fell with left rib fractures a month ago. She resumed taking couple shots of whiskey in hopes to relieve her rib pain, but developed nausea vomiting and diarrhea 01/14/18 and came to the ER for help early 01/15/18 morning. She was given NS IV fluid, antiemetics, and found to have hyponatremia, hypoproteinemia, hypo-magnesemia. She is started on IV magnesium, IV and oral K replacement. I discussed with her in great length and explained to her that she needs to quit smoking and alcohol use, completely. We will ask social work to arrange her with assistance 01/16/18 She continued to have intractable nausea & vomiting, other abnormal labs with anemia, elevated INR, elevated total bilirubin. She had also reported to have dark tarry stool at home. We will check CT Pelvis with contrast, TSH, iron panels, B12 folate, Hemoccult screen, change oral to IV Protonix; resume gentle IV fluid if orthostatic positive. Recheck INR 01/17/18 Acute cholecystitis on abdominal ultrasound, worsen hyper-anticoagulation and likely blood loss anemia, stool guaiacs pending, add on lipase and amylase. IV fluids, vitamin K, type and cross for transfusion. Surgery consult on cholecystitis 01/18/18 had alcohol withdrawal DTs yesterday, responded well to CIWA protocol, and blood products (PRBC, FFP) transfusion. Surgical consult with Dr. Juarez: Not cholecystitis, alcoholic svsdaupyz-depdeyxk-yhfsfbtbpxvoggq induced gallbladder wall thickening. Appreciate Dr. Juarez's input and assistance. She appeared fluid filled with these blood products transfusions, will start Aldactone as propranolol/beta wilfrido stool guaiac, saline lock. Continue monitor coagulation functions, electrolytes, replace as needed. Keep her on CIWA protocol until withdrawal is stabilized and manageable. 01/19/2018 overnight, improving with less use of Ativan and only on maintenance low-dose Librium. Electrolytes deficiency magnesium 1.1, potassium still 3.1, coags normalized INR is 1.1, liver enzymes improved today, however still hypoalbuminemic 2.8. Preliminary urine culture with gram-negative bacilli. --PT to rehab, replace electrolyte magnesium and potassium, Rocephin antibiotics for UTI, pending final culture sensitivity from urine cultures. --Likely will need extended rehab, however she is self-pay, social is looking into her situation. --MANNY Alonso, ambulate with PT, 01/20/2018 Urine culture with Klebsiella pneumonia, ampicillin resistant, on Rocephin. --We will change Rocephin to oral Cipro. 01/21/2018 She report desire to be with her sister. Pt says that her sister is coming here. - Constitutional Vitals: Vital Signs Temp Pulse Resp BP Pulse Ox 98.9 F 85 18 121/78 95 01/21/18 07:14 01/21/18 07:14 01/21/18 07:14 01/21/18 07:14 01/21/18 07:14 Period Temp Pulse Resp BP Sys/Manning Pulse Ox Last 24 Hr 97.9 F-98.9 F 85-88 16-20 98-134/60-82 94-96 Intake and Output 01/20/18 01/21/18 01/21/18 21:59 05:59 13:59 Intake Total 620 / 620 600 / 600 240 / 240 Output Total 1525 / 1525 650 / 650 Balance 620 / 620 -925 / -925 -410 / -410 Weight 119 lb Intake & Output: Intake & Output 01/20/18 01/21/18 01/21/18 21:59 05:59 13:59 Intake Total 620 / 620 600 / 600 240 / 240 Output Total 1525 / 1525 650 / 650 Balance 620 / 620 -925 / -925 -410 / -410 Weight 119 lb Intake: Oral 620 / 620 600 / 600 240 / 240 Output: Void Amount 1525 / 1525 650 / 650 Other: Meal Dinner Breakfast Percent of Meal Consumed 100% 50% Feeding Ability Independent Independent # Voids 1 1 Medical - PN: Obj Da - Labs CBC & Chem 7: 01/22/18 04:10 01/22/18 04:10 Labs: Abnormal Lab Results 01/21/18 01/21/18 01/20/18 04:00 04:00 03:40 RBC 3.13 L Hgb 9.9 L Hct 30.0 L RDW 21.1 H MPV [place] % (Auto) 16.4 H Lymph # (Auto) [place] # (Auto) Potassium BUN Creatinine 0.5 L Glucose 198 H Calcium 8.5 L 8.5 L Magnesium Total Bilirubin AST 100 H 176 H ALT 559 H 784 H Alkaline Phosphatase 133 H 157 H Total Protein 5.2 L 5.2 L Albumin 2.8 L 2.8 L Urine Protein Urine Glucose (UA) Urine Occult Blood Urine Nitrate Urine Urobilinogen Ur Leukocyte Esterase Urine RBC Urine WBC Amorphous Crystals Urine Bacteria Hyaline Casts Urine Yeast (Budding) 01/20/18 01/19/18 01/19/18 03:40 12:37 03:45 RBC 3.23 L Hgb 10.3 L Hct 30.8 L RDW 20.7 H MPV [place] % (Auto) 15.4 H Lymph # (Auto) 1.4 L [place] # (Auto) 1.0 H Potassium 3.1 L BUN 5 L Creatinine 0.5 L Glucose Calcium 8.3 L Magnesium 1.1 L Total Bilirubin 1.5 H AST 576 H ALT 1208 H Alkaline Phosphatase 155 H Total Protein 5.1 L Albumin 2.8 L Urine Protein 30 A Urine Glucose (UA) 150 A Urine Occult Blood 0.2 A Urine Nitrate Pos A Urine Urobilinogen 4.0 A Ur Leukocyte Esterase 500 A Urine RBC > 182 H Urine WBC > 182 H Amorphous Crystals Few A Urine Bacteria Few A Hyaline Casts 17 H Urine Yeast (Budding) Few A 01/19/18 03:45 RBC 3.31 L Hgb 10.5 L Hct 31.1 L RDW 22.1 H MPV 7.1 L [place] % (Auto) Lymph # (Auto) 1.3 L [place] # (Auto) Potassium BUN Creatinine Glucose Calcium Magnesium Total Bilirubin AST ALT Alkaline Phosphatase Total Protein Albumin Urine Protein Urine Glucose (UA) Urine Occult Blood Urine Nitrate Urine Urobilinogen Ur Leukocyte Esterase Urine RBC Urine WBC Amorphous Crystals Urine Bacteria Hyaline Casts Urine Yeast (Budding) Meds: Medications Acetaminophen (Tylenol) 650 mg PO Q8HP PRN PRN Reason: PAIN/FEVER > 101 Hydrocodone Bitart/Acetaminophen ([place] 5/325mg) 1 tab PO Q8HP PRN PRN Reason: PAIN LEVEL 3-6 Last Admin: 01/21/18 08:26 Dose: 1 tab Albuterol/Ipratropium (Duoneb) 3 ml NEB Q6HP PRN PRN Reason: Shortness Of Breath Or Wheezing Bisacodyl (Dulcolax) 10 mg RI Q2-3DAYS PRN PRN Reason: Constipation Chlordiazepoxide HCl (Librium) 50 mg PO Q4HP PRN PRN Reason: Alcohol Withdrawal Ciprofloxacin (Cipro) 500 mg PO BID [facility] Last Admin: 01/21/18 08:26 Dose: 500 mg Docusate Sodium (Colace) 100 mg PO BID [facility] Last Admin: 01/21/18 08:25 Dose: 100 mg Ferrous Sulfate (Ferrous Sulfate) 325 mg PO TIDCC [facility] Last Admin: 01/21/18 08:26 Dose: 325 mg Folic Acid (Folic Acid) 1 mg PO DAILY [facility] Last Admin: 01/21/18 08:26 Dose: 1 mg Iron Carb/Multivit/[place]/Folic Acid (Multivitamin W/Minerals) 1 tab PO DAILY [facility] Last Admin: 01/21/18 08:26 Dose: 1 tab Lidocaine (Lidoderm) 1 patch TOPICAL DAILY@1200 EVELYN Lidocaine (Lidoderm) 0 patch TOPICAL HS@0000 [facility] Last Admin: 01/21/18 00:00 Dose: Not Given Lorazepam (Ativan) 0 mg IV Q4HP PRN; Protocol PRN Reason: Alcohol Withdrawal Magnesium Hydroxide (Milk Of Magnesia) 30 ml PO DAILYP PRN PRN Reason: Constipation Metoprolol Tartrate (Lopressor) 25 mg PO Q12H [facility] Last Admin: 01/21/18 08:36 Dose: 25 mg Nicotine (Nicoderm) 14 mg TOPICAL DAILY@1000 [facility] Last Admin: 01/21/18 10:16 Dose: 14 mg Ondansetron HCl (Zofran) 4 mg IV Q4-6HP PRN PRN Reason: Nausea And Vomiting Pantoprazole Sodium (Protonix) 40 mg IV BIDAC [facility] Last Admin: 01/21/18 07:16 Dose: 40 mg Sodium Chloride (Saline Flush) 10 ml IV Q8 [facility] Last Admin: 01/21/18 05:41 Dose: 10 ml Spironolactone (Aldactone) 25 mg PO DAILY [facility] Last Admin: 01/21/18 08:26 Dose: 25 mg Thiamine HCl (Vitamin B1) 100 mg PO QDAY [facility] Last Admin: 01/21/18 08:26 Dose: 100 mg Medical - PN: A/P - Time Spent With Patient Total time spent is greater than 50% in coordination of care (as documented) at patient's floor/unit and/or counseling patient: (1) Alcoholic hepatitis Status: Acute Assessment and plan: See above description. Current Visit: Yes (2) Alcohol abuse Status: Chronic Assessment and plan: strongly advised her to completely stop smoking and alcohol use, as above. She'll need to have PCP set up for healthcare maintenance, especially helpful with her alcohol & tobacco abuse issues See above discussion Current Visit: No (3) Normocytic anemia Problem details: Concern for GI bleeding Status: Acute Assessment and plan: TSH, iron panels, B12 folate, Hemoccult screen, change oral to IV Protonix, recheck coagulation, Hemoccult screen. See above, H&H holding, no active bleeding. Current Visit: Yes (4) Hypomagnesemia Status: Acute Assessment and plan: See above Current Visit: Yes (5) Hypokalemia Status: Acute Assessment and plan: See above Current Visit: No (6) Hyponatremia Status: Acute Assessment and plan: See above, resolved Current Visit: Yes (7) Nausea vomiting and diarrhea Problem details: Intractable, peptic ulcer, hepatic alcoholic liver, vs. gallbladder etiologies, or others Status: Acute Assessment and plan: See above. Not cholecystitis, alcoholic [id number] induced gallbladder wall thickening. Appreciate Dr. Juarez's input and assistance Current Visit: Yes (8) Tobacco abuse Status: Chronic Assessment and plan: On nicotine patch. She'll need to have PCP set up for healthcare maintenance, especially helpful with her alcohol & tobacco abuse issues Current Visit: Yes (9) Rib fracture Status: Chronic Assessment and plan: Stable, fall precaution, PT OT rehab Current Visit: No Medical - PN: Qual - Stroke Symptom Onset Unknown: No - VTE Deep Vein Thrombosis/Pulmonary Embolism Present on Admission: No
[2018-01-21] MEDS: LIDOCAINE PATCH TOPICAL SCH ×2 (12:36)
[2018-01-22] MEDS: HYDROcodone/APAP 5/325MG TABLET PO PRN ×3 (00:55→20:09)
[2018-01-22] MEDS: LIDOCAINE PATCH TOPICAL SCH ×2 (00:56→11:51)
[2018-01-22] MEDS: 0.9 % SODIUM CHLORIDE 10 ML SYRINGE IV SCH ×3 (05:14→20:10)
[2018-01-22 05:20] LABS: Basophils # (Auto) 0 K/mcL (0.0-0.3); Basophils % (Auto) 0.4 % (0.0-2.0); Eosinophils # (Auto) 0.2 K/mcL (0.0-0.7); Eosinophils % (Auto) 2.7 % (0.0-7.0); Granulocytes % (Auto) 52.3 % (38.0-78.0); Lymphocytes # (Auto) 1.9 K/mcL (1.5-4.8); Lymphocytes % (Auto) 30.2 % (15.5-49.0); Mean Cell Volume 95.5 fL (80.0-100.0); Mean Corpuscular HGB Conc 33.5 g/dL (31.0-36.0); Monocytes # (Auto) 0.9 K/mcL (0.1-0.9); Monocytes % (Auto) 14.4 % (1.0-12.0); Platelet Count 233 K/mcL (140-440); Red Cell Distribution Width 21.3 % (11.5-14.5)
[2018-01-22 05:43] LABS: ALT/SGPT 469 U/l (0-40); Albumin 3.2 gm/dL (3.2-5.2); Albumin/Globulin Ratio 1.3 (1.0-2.3); Alkaline Phosphatase 130 U/L (39-117); Blood Urea Nitrogen 9 mg/dl (6-20)
[2018-01-22] MEDS: THIAMINE 100 MG TABLET PO SCH (08:01)
[2018-01-22] MEDS: MULTIVIT,THER IRON,CA,FA & MIN 1 TABLET PO SCH (08:01)
[2018-01-22] MEDS: CIPROFLOXACIN 500 MG TABLET PO SCH ×2 (08:01→20:09)
[2018-01-22] MEDS: PANTOPRAZOLE 40 MG VIAL IV SCH ×2 (08:01→16:50)
[2018-01-22] MEDS: SPIRONOLACTONE 25 MG TABLET PO SCH (08:02)
[2018-01-22] MEDS: FERROUS SULFATE 325 MG TABLET PO SCH ×3 (08:02→16:55)
[2018-01-22] MEDS: FOLIC ACID 1 MG TABLET PO SCH (08:02)
[2018-01-22] MEDS: DOCUSATE SODIUM 100 MG CAPSULE PO SCH ×2 (08:05→20:10)
[2018-01-22] MEDS: METOPROLOL TARTRATE 25 MG TABLET PO SCH ×2 (08:08→20:10)
[2018-01-22] MEDS: NICOTINE 14 MG PATCH TOPICAL SCH (10:17)
--- NOTE | 2018-01-22 13:04 | Internal Med Progress Note ---
Medical - PN: Subj Patient information: Note initiated : 01/22/18 at 1:04 pm Service Date, if different from initiated Date: [] Patient: Do Cantu 57 y/o F admitted on 01/17/18 for Rib Pain, Nausea r/t Pain/Rib Fracture. Chief Complaint: [] - Constitutional Vitals: Vital Signs Temp Pulse Resp BP Pulse Ox 98.6 F 80 18 121/76 97 01/22/18 11:56 01/22/18 11:56 01/22/18 11:56 01/22/18 11:56 01/22/18 11:56 Period Temp Pulse Resp BP Sys/Manning Pulse Ox Last 24 Hr 97.4 F-98.6 F 80-88 17-20 100-125/63-76 94-97 Intake and Output 01/21/18 01/22/18 01/22/18 21:59 05:59 13:59 Intake Total 1680 / 1680 1563 / 1563 600 / 600 Output Total 1325 / 1325 1150 / 1150 1600 / 1600 Balance 355 / 355 413 / 413 -1000 / -1000 Weight 121 lb Intake & Output: Intake & Output 01/21/18 01/22/18 01/22/18 21:59 05:59 13:59 Intake Total 1680 / 1680 1563 / 1563 600 / 600 Output Total 1325 / 1325 1150 / 1150 1600 / 1600 Balance 355 / 355 413 / 413 -1000 / -1000 Weight 121 lb Intake: Oral 1680 / 1680 1563 / 1563 600 / 600 Output: Void Amount 1325 / 1325 1150 / 1150 1600 / 1600 Other: Meal Dinner pudding Percent of Meal Consumed 100% 100% Feeding Ability Independent Independent Stool Size Large Small Stool Color Black Brown Black Stool Consistency Soft Loose Liquid # Voids 1 1 1 # Bowel Movements 1 1 Medical - PN: Obj Da - Labs CBC & Chem 7: 01/22/18 04:10 01/22/18 04:10 Labs: Abnormal Lab Results 01/22/18 01/22/18 01/21/18 04:10 04:10 04:00 RBC 3.40 L Hgb 10.9 L Hct 32.5 L RDW 21.3 H [place] % (Auto) 14.4 H Lymph # (Auto) [place] # (Auto) Creatinine Glucose 198 H Calcium 8.5 L AST 70 H 100 H ALT 469 H 559 H Alkaline Phosphatase 130 H 133 H Total Protein 5.7 L 5.2 L Albumin 2.8 L Urine Protein Urine Glucose (UA) Urine Occult Blood Urine Nitrate Urine Urobilinogen Ur Leukocyte Esterase Urine RBC Urine WBC Amorphous Crystals Urine Bacteria Hyaline Casts Urine Yeast (Budding) 01/21/18 01/20/18 01/20/18 04:00 03:40 03:40 RBC 3.13 L 3.23 L Hgb 9.9 L 10.3 L Hct 30.0 L 30.8 L RDW 21.1 H 20.7 H [place] % (Auto) 16.4 H 15.4 H Lymph # (Auto) 1.4 L [place] # (Auto) 1.0 H Creatinine 0.5 L Glucose Calcium 8.5 L AST 176 H ALT 784 H Alkaline Phosphatase 157 H Total Protein 5.2 L Albumin 2.8 L Urine Protein Urine Glucose (UA) Urine Occult Blood Urine Nitrate Urine Urobilinogen Ur Leukocyte Esterase Urine RBC Urine WBC Amorphous Crystals Urine Bacteria Hyaline Casts Urine Yeast (Budding) 01/19/18 12:37 RBC Hgb Hct RDW [place] % (Auto) Lymph # (Auto) [place] # (Auto) Creatinine Glucose Calcium AST ALT Alkaline Phosphatase Total Protein Albumin Urine Protein 30 A Urine Glucose (UA) 150 A Urine Occult Blood 0.2 A Urine Nitrate Pos A Urine Urobilinogen 4.0 A Ur Leukocyte Esterase 500 A Urine RBC > 182 H Urine WBC > 182 H Amorphous Crystals Few A Urine Bacteria Few A Hyaline Casts 17 H Urine Yeast (Budding) Few A Meds: Medications Acetaminophen (Tylenol) 650 mg PO Q8HP PRN PRN Reason: PAIN/FEVER > 101 Last Admin: 01/21/18 13:50 Dose: 650 mg Hydrocodone Bitart/Acetaminophen ([place] 5/325mg) 1 tab PO Q8HP PRN PRN Reason: PAIN LEVEL 3-6 Last Admin: 01/22/18 12:16 Dose: 1 tab Albuterol/Ipratropium (Duoneb) 3 ml NEB Q6HP PRN PRN Reason: Shortness Of Breath Or Wheezing Bisacodyl (Dulcolax) 10 mg LA Q2-3DAYS PRN PRN Reason: Constipation Chlordiazepoxide HCl (Librium) 50 mg PO Q4HP PRN PRN Reason: Alcohol Withdrawal Ciprofloxacin (Cipro) 500 mg PO BID [facility] Last Admin: 01/22/18 08:01 Dose: 500 mg Docusate Sodium (Colace) 100 mg PO BID [facility] Last Admin: 01/22/18 08:05 Dose: Not Given Ferrous Sulfate (Ferrous Sulfate) 325 mg PO TIDCC [facility] Last Admin: 01/22/18 11:52 Dose: 325 mg Folic Acid (Folic Acid) 1 mg PO DAILY [facility] Last Admin: 01/22/18 08:02 Dose: 1 mg Iron Carb/Multivit/[place]/Folic Acid (Multivitamin W/Minerals) 1 tab PO DAILY [facility] Last Admin: 01/22/18 08:01 Dose: 1 tab Lidocaine (Lidoderm) 1 patch TOPICAL DAILY@1200 [facility] Last Admin: 01/22/18 11:51 Dose: 1 patch Lidocaine (Lidoderm) 0 patch TOPICAL HS@0000 [facility] Last Admin: 01/22/18 00:56 Dose: Not Given Lorazepam (Ativan) 0 mg IV Q4HP PRN; Protocol PRN Reason: Alcohol Withdrawal Magnesium Hydroxide (Milk Of Magnesia) 30 ml PO DAILYP PRN PRN Reason: Constipation Metoprolol Tartrate (Lopressor) 25 mg PO Q12H [facility] Last Admin: 01/22/18 08:08 Dose: 25 mg Nicotine (Nicoderm) 14 mg TOPICAL DAILY@1000 [facility] Last Admin: 01/22/18 10:17 Dose: 14 mg Ondansetron HCl (Zofran) 4 mg IV Q4-6HP PRN PRN Reason: Nausea And Vomiting Pantoprazole Sodium (Protonix) 40 mg IV BIDAC [facility] Last Admin: 01/22/18 08:01 Dose: 40 mg Sodium Chloride (Saline Flush) 10 ml IV Q8 [facility] Last Admin: 01/22/18 05:14 Dose: 10 ml Spironolactone (Aldactone) 25 mg PO DAILY [facility] Last Admin: 01/22/18 08:02 Dose: 25 mg Thiamine HCl (Vitamin B1) 100 mg PO QDAY [facility] Last Admin: 01/22/18 08:01 Dose: 100 mg Medical - PN: A/P - Time Spent With Patient Total time spent is greater than 50% in coordination of care (as documented) at patient's floor/unit and/or counseling patient: (1) Alcoholic hepatitis Status: Acute Assessment and plan: See above description. Current Visit: Yes (2) Alcohol abuse Status: Chronic Assessment and plan: strongly advised her to completely stop smoking and alcohol use, as above. She'll need to have PCP set up for healthcare maintenance, especially helpful with her alcohol & tobacco abuse issues See above discussion Current Visit: No (3) Normocytic anemia Problem details: Concern for GI bleeding Status: Acute Assessment and plan: TSH, iron panels, B12 folate, Hemoccult screen, change oral to IV Protonix, recheck coagulation, Hemoccult screen. See above, H&H holding, no active bleeding. Current Visit: Yes (4) Hypomagnesemia Status: Acute Assessment and plan: See above Current Visit: Yes (5) Hypokalemia Status: Acute Assessment and plan: See above Current Visit: No (6) Hyponatremia Status: Acute Assessment and plan: See above, resolved Current Visit: Yes (7) Nausea vomiting and diarrhea Problem details: Intractable, peptic ulcer, hepatic alcoholic liver, vs. gallbladder etiologies, or others Status: Acute Assessment and plan: See above. Not cholecystitis, alcoholic rxoavfvxk-ngtrzesq-qlimyykegztscma induced gallbladder wall thickening. Appreciate Dr. Juarez's input and assistance Current Visit: Yes (8) Tobacco abuse Status: Chronic Assessment and plan: On nicotine patch. She'll need to have PCP set up for healthcare maintenance, especially helpful with her alcohol & tobacco abuse issues Current Visit: Yes (9) Rib fracture Status: Chronic Assessment and plan: Stable, fall precaution, PT OT rehab Current Visit: No Medical - PN: Qual - Stroke Symptom Onset Unknown: No - VTE Deep Vein Thrombosis/Pulmonary Embolism Present on Admission: No
[2018-01-23] MEDS: LIDOCAINE PATCH TOPICAL SCH ×3 (00:07→23:24)
[2018-01-23] MEDS: 0.9 % SODIUM CHLORIDE 10 ML SYRINGE IV SCH ×2 (04:13→04:16)
[2018-01-23] MEDS: HYDROcodone/APAP 5/325MG TABLET PO PRN ×3 (04:14→20:19)
[2018-01-23 06:16] LABS: Basophils # (Auto) 0.1 K/mcL (0.0-0.3); Eosinophils # (Auto) 0.1 K/mcL (0.0-0.7); Eosinophils % (Auto) 1.9 % (0.0-7.0); Lymphocytes # (Auto) 1.9 K/mcL (1.5-4.8); Lymphocytes % (Auto) 29.3 % (15.5-49.0); Mean Cell Volume 94.2 fL (80.0-100.0); Mean Corpuscular HGB Conc 33.5 g/dL (31.0-36.0); Mean Corpuscular Hemoglobin 31.6 pg (26.0-34.0); Monocytes # (Auto) 0.8 K/mcL (0.1-0.9); Monocytes % (Auto) 11.8 % (1.0-12.0); Platelet Count 245 K/mcL (140-440); RBC 3.25 M/mcL (4.00-5.20)
[2018-01-23] MEDS: PANTOPRAZOLE 40 MG VIAL IV SCH (07:15)
[2018-01-23] MEDS: FERROUS SULFATE 325 MG TABLET PO SCH ×3 (07:16→17:31)
[2018-01-23] MEDS: DOCUSATE SODIUM 100 MG CAPSULE PO SCH ×2 (07:16→20:18)
[2018-01-23] MEDS: SPIRONOLACTONE 25 MG TABLET PO SCH (07:16)
[2018-01-23] MEDS: MULTIVIT,THER IRON,CA,FA & MIN 1 TABLET PO SCH (07:16)
[2018-01-23] MEDS: FOLIC ACID 1 MG TABLET PO SCH (07:16)
[2018-01-23] MEDS: CIPROFLOXACIN 500 MG TABLET PO SCH ×2 (07:16→20:19)
[2018-01-23] MEDS: THIAMINE 100 MG TABLET PO SCH (07:16)
[2018-01-23] MEDS: METOPROLOL TARTRATE 25 MG TABLET PO SCH ×2 (07:21→20:19)
[2018-01-23 08:49] LABS: Basophils # (Auto) 0 K/mcL (0.0-0.3); Basophils % (Auto) 0.4 % (0.0-2.0); Eosinophils # (Auto) 0.1 K/mcL (0.0-0.7); Eosinophils % (Auto) 1.7 % (0.0-7.0); Granulocytes % (Auto) 59.7 % (38.0-78.0); Lymphocytes # (Auto) 1.8 K/mcL (1.5-4.8); Lymphocytes % (Auto) 25.1 % (15.5-49.0); Mean Corpuscular HGB Conc 33.5 g/dL (31.0-36.0); Mean Corpuscular Hemoglobin 31.8 pg (26.0-34.0); Monocytes # (Auto) 0.9 K/mcL (0.1-0.9); Monocytes % (Auto) 13.1 % (1.0-12.0); Platelet Count 269 K/mcL (140-440); RBC 3.34 M/mcL (4.00-5.20); Red Cell Distribution Width 20.8 % (11.5-14.5)
[2018-01-23 09:24] LABS: ALT/SGPT 348 U/l (0-40); Albumin 3.4 gm/dL (3.2-5.2); Albumin/Globulin Ratio 1.3 (1.0-2.3); Alkaline Phosphatase 116 U/L (39-117); Blood Urea Nitrogen 9 mg/dl (6-20)
[2018-01-23] MEDS: NICOTINE 14 MG PATCH TOPICAL SCH (09:28)
[2018-01-23] MEDS: PANTOPRAZOLE 40 MG TABLET PO SCH ×2 (11:36→17:31)
--- NOTE | 2018-01-23 22:19 | Internal Med Progress Note ---
Medical - PN: Subj Patient information: Note initiated : 01/23/18 at 10:19 pm Service Date, if different from initiated Date: [] Patient: Do Cantu 57 y/o F admitted on 01/17/18 for Rib Pain, Nausea r/t Pain/Rib Fracture. Chief Complaint: [] Interval history: 57 year old F smoker with chronic alcohol abuse and found to have recurrent hyponatremia and electrolyte abnormalities. She is admited 01/15/18 on telemetry observation for electrolyte replacements. She has multiple alcohol induced and related chronic health issues: malnutrition , failure to thrive, ETOH withdrawal, anemia, electrolyte imbalance,rhabdo, recurrent falls, rib fractures, PNA. She was recently hospitalized at [facility] (12/15/17-12/30/17), and she last fell with left rib fractures a month ago. She resumed taking couple shots of whiskey in hopes to relieve her rib pain, but developed nausea vomiting and diarrhea 01/14/18 and came to the ER for help early 01/15/18 morning. She was given NS IV fluid, antiemetics, and found to have hyponatremia, hypoproteinemia, hypo-magnesemia. She is started on IV magnesium, IV and oral K replacement. I discussed with her in great length and explained to her that she needs to quit smoking and alcohol use, completely. We will ask social work to arrange her with assistance 01/16/18 She continued to have intractable nausea & vomiting, other abnormal labs with anemia, elevated INR, elevated total bilirubin. She had also reported to have dark tarry stool at home. We will check CT Pelvis with contrast, TSH, iron panels, B12 folate, Hemoccult screen, change oral to IV Protonix; resume gentle IV fluid if orthostatic positive. Recheck INR 01/17/18 Acute cholecystitis on abdominal ultrasound, worsen hyper-anticoagulation and likely blood loss anemia, stool guaiacs pending, add on lipase and amylase. IV fluids, vitamin K, type and cross for transfusion. Surgery consult on cholecystitis 01/18/18 had alcohol withdrawal DTs yesterday, responded well to CIWA protocol, and blood products (PRBC, FFP) transfusion. Surgical consult with Dr. Juarez: Not cholecystitis, alcoholic [id number] induced gallbladder wall thickening. Appreciate Dr. Juarez's input and assistance. She appeared fluid filled with these blood products transfusions, will start Aldactone as propranolol/beta wilfrido stool guaiac, saline lock. Continue monitor coagulation functions, electrolytes, replace as needed. Keep her on CIWA protocol until withdrawal is stabilized and manageable. 01/19/2018 overnight, improving with less use of Ativan and only on maintenance low-dose Librium. Electrolytes deficiency magnesium 1.1, potassium still 3.1, coags normalized INR is 1.1, liver enzymes improved today, however still hypoalbuminemic 2.8. Preliminary urine culture with gram-negative bacilli. --PT to rehab, replace electrolyte magnesium and potassium, Rocephin antibiotics for UTI, pending final culture sensitivity from urine cultures. --Likely will need extended rehab, however she is self-pay, social is looking into her situation. --MANNY Alonso, ambulate with PT, 01/20/2018 Urine culture with Klebsiella pneumonia, ampicillin resistant, on Rocephin. --We will change Rocephin to oral Cipro. 01/21/2018 She report desire to be with her sister. Pt says that her sister is coming here. - Constitutional Vitals: Vital Signs Temp Pulse Resp BP Pulse Ox 98.0 F 89 24 H 156/85 97 01/23/18 20:00 01/23/18 20:00 01/23/18 20:00 01/23/18 20:00 01/23/18 20:00 Period Temp Pulse Resp BP Sys/[place] Pulse Ox Last 24 Hr 98.0 F-98.6 F 81-89 16-24 105-156/66-85 95-97 Intake and Output 01/23/18 01/23/18 01/24/18 13:59 21:59 05:59 Intake Total 840 / 840 2350 / 2350 326 / 326 Output Total 1750 / 1750 2049 150 / 150 Balance -910 / -910 300 / 300 176 / 176 Weight 119 lb 8 oz Patient Weight 01/24/18 05:59 Weight 119 lb 8 oz Intake & Output: Intake & Output 01/23/18 01/23/18 01/24/18 13:59 21:59 05:59 Intake Total 840 / 840 2350 / 2350 326 / 326 Output Total 1750 / 1750 2049 150 / 150 Balance -910 / -910 300 / 300 176 / 176 Weight 119 lb 8 oz Intake: Oral 840 / 840 2350 / 2350 326 / 326 Output: Void Amount 0 / 1750 2049 150 / 150 Other: Meal Breakfast Dinner prune juice(2) Percent of Meal Consumed 100% 100% Feeding Ability Independent Independent Medical - PN: Obj Da - Labs CBC & Chem 7: 01/23/18 07:48 01/23/18 07:48 Labs: Abnormal Lab Results 01/23/18 01/23/18 01/23/18 07:48 07:48 03:55 RBC 3.34 L 3.25 L Hgb 10.6 L 10.3 L Hct 31.8 L 30.6 L RDW 20.8 H 21.0 H [place] % (Auto) 13.1 H Sodium 131 L Chloride 93 L Glucose Calcium AST 50 H ALT 348 H Alkaline Phosphatase Total Protein Albumin 01/22/18 01/22/18 01/21/18 04:10 04:10 04:00 RBC 3.40 L Hgb 10.9 L Hct 32.5 L RDW 21.3 H [place] % (Auto) 14.4 H Sodium Chloride Glucose 198 H Calcium 8.5 L AST 70 H 100 H ALT 469 H 559 H Alkaline Phosphatase 130 H 133 H Total Protein 5.7 L 5.2 L Albumin 2.8 L 01/21/18 04:00 RBC 3.13 L Hgb 9.9 L Hct 30.0 L RDW 21.1 H [place] % (Auto) 16.4 H Sodium Chloride Glucose Calcium AST ALT Alkaline Phosphatase Total Protein Albumin Meds: Medications Acetaminophen (Tylenol) 650 mg PO Q8HP PRN PRN Reason: PAIN/FEVER > 101 Last Admin: 01/21/18 13:50 Dose: 650 mg Hydrocodone Bitart/Acetaminophen ([place] 5/325mg) 1 tab PO Q8HP PRN PRN Reason: PAIN LEVEL 3-6 Last Admin: 01/23/18 20:19 Dose: 1 tab Albuterol/Ipratropium (Duoneb) 3 ml NEB Q6HP PRN PRN Reason: Shortness Of Breath Or Wheezing Bisacodyl (Dulcolax) 10 mg [place] Q2-3DAYS PRN PRN Reason: Constipation Chlordiazepoxide HCl (Librium) 50 mg PO Q4HP PRN PRN Reason: Alcohol Withdrawal Ciprofloxacin (Cipro) 500 mg PO BID [facility] Last Admin: 01/23/18 20:19 Dose: 500 mg Docusate Sodium (Colace) 100 mg PO BID [facility] Last Admin: 01/23/18 20:18 Dose: 100 mg Ferrous Sulfate (Ferrous Sulfate) 325 mg PO TIDCC [facility] Last Admin: 01/23/18 17:31 Dose: 325 mg Folic Acid (Folic Acid) 1 mg PO DAILY [facility] Last Admin: 01/23/18 07:16 Dose: 1 mg Iron Carb/Multivit/[place]/Folic Acid (Multivitamin W/Minerals) 1 tab PO DAILY [facility] Last Admin: 01/23/18 07:16 Dose: 1 tab Lidocaine (Lidoderm) 1 patch TOPICAL DAILY@1200 [facility] Last Admin: 01/23/18 11:36 Dose: 1 patch Lidocaine (Lidoderm) 0 patch TOPICAL HS@0000 [facility] Last Admin: 01/23/18 00:07 Dose: Not Given Lorazepam (Ativan) 0 mg IV Q4HP PRN; Protocol PRN Reason: Alcohol Withdrawal Magnesium Hydroxide (Milk Of Magnesia) 30 ml PO DAILYP PRN PRN Reason: Constipation Metoprolol Tartrate (Lopressor) 25 mg PO Q12H [facility] Last Admin: 01/23/18 20:19 Dose: 25 mg Nicotine (Nicoderm) 14 mg TOPICAL DAILY@1000 [facility] Last Admin: 01/23/18 09:28 Dose: 14 mg Ondansetron HCl (Zofran) 4 mg IV Q4-6HP PRN PRN Reason: Nausea And Vomiting Pantoprazole Sodium (Protonix) 40 mg PO BIDAC [facility] Last Admin: 01/23/18 17:31 Dose: 40 mg Spironolactone (Aldactone) 25 mg PO DAILY [facility] Last Admin: 01/23/18 07:16 Dose: 25 mg Thiamine HCl (Vitamin B1) 100 mg PO QDAY [facility] Last Admin: 01/23/18 07:16 Dose: 100 mg Medical - PN: A/P - Time Spent With Patient Total time spent is greater than 50% in coordination of care (as documented) at patient's floor/unit and/or counseling patient: (1) Alcoholic hepatitis Status: Acute Assessment and plan: See above description. Current Visit: Yes (2) Alcohol abuse Status: Chronic Assessment and plan: strongly advised her to completely stop smoking and alcohol use, as above. She'll need to have PCP set up for healthcare maintenance, especially helpful with her alcohol & tobacco abuse issues See above discussion Current Visit: No (3) Normocytic anemia Problem details: Concern for GI bleeding Status: Acute Assessment and plan: TSH, iron panels, B12 folate, Hemoccult screen, change oral to IV Protonix, recheck coagulation, Hemoccult screen. See above, H&H holding, no active bleeding. Current Visit: Yes (4) Hypomagnesemia Status: Acute Assessment and plan: See above Current Visit: Yes (5) Hypokalemia Status: Acute Assessment and plan: See above Current Visit: No (6) Hyponatremia Status: Acute Assessment and plan: See above, resolved Current Visit: Yes (7) Nausea vomiting and diarrhea Problem details: Intractable, peptic ulcer, hepatic alcoholic liver, vs. gallbladder etiologies, or others Status: Acute Assessment and plan: See above. Not cholecystitis, alcoholic [id number]-[id number] induced gallbladder wall thickening. Appreciate Dr. Juarez's input and assistance Current Visit: Yes (8) Tobacco abuse Status: Chronic Assessment and plan: On nicotine patch. She'll need to have PCP set up for healthcare maintenance, especially helpful with her alcohol & tobacco abuse issues Current Visit: Yes (9) Rib fracture Status: Chronic Assessment and plan: Stable, fall precaution, PT OT rehab Current Visit: No Medical - PN: Qual - Stroke Symptom Onset Unknown: No - VTE Deep Vein Thrombosis/Pulmonary Embolism Present on Admission: No
[2018-01-24] MEDS: HYDROcodone/APAP 5/325MG TABLET PO PRN (05:47)
[2018-01-24] MEDS: PANTOPRAZOLE 40 MG TABLET PO SCH (07:42)
[2018-01-24] MEDS: FERROUS SULFATE 325 MG TABLET PO SCH (07:42)
[2018-01-24] MEDS: METOPROLOL TARTRATE 25 MG TABLET PO SCH (09:03)
[2018-01-24] MEDS: THIAMINE 100 MG TABLET PO SCH (09:03)
[2018-01-24] MEDS: MULTIVIT,THER IRON,CA,FA & MIN 1 TABLET PO SCH (09:04)
[2018-01-24] MEDS: FOLIC ACID 1 MG TABLET PO SCH (09:04)
[2018-01-24] MEDS: DOCUSATE SODIUM 100 MG CAPSULE PO SCH (09:04)
[2018-01-24] MEDS: SPIRONOLACTONE 25 MG TABLET PO SCH (09:04)
[2018-01-24] MEDS: CIPROFLOXACIN 500 MG TABLET PO SCH (09:04)
--- NOTE | 2018-01-24 09:58 | Discharge Summary ---
Medical - DS: Prov Patient information: Note initiated : 01/24/18 at 9:13 am Service Date, if different from initiated Date: [] Patient: Do Cantu 57 y/o F admitted on 01/17/18 for Rib Pain, Nausea r/t Pain/Rib Fracture. Chief Complaint: [] Date of admission: 01/17/18 07:54 Discharge date: 01/24/18 Primary care physician: PCP No Consults: 01/17/18 09:29 Consult to Physician [CONS] Routine Comment: Cholecystitis Consulting Provider: Deuce Juarez Reason For Exam: Physician to Consult 01/19/18 15:39 Consult to Physician [CONS] Routine Comment: Consulting Provider: Lawrence Melendez Reason For Exam: Physician to Consult Attending physician on discharge: Lawrence Melendez Medical - DS: Meds - Discharge Medications Active and Home Medications: Home Medications No Known Home Meds [No Known Home Meds] 01/17/18 [History Confirmed 01/17/18 Last Taken Unknown] Medical - DS: Hosp Hospital course: Mr. Cantu is a 57 year old F Discharge diagnosis: Alcoholic hepatitis Secondary discharge diagnosis: Alcohol withdrawal, resolve with CIWA protocol treatment Endogenous over-anticoagulation, secondary to alcoholic abuse pericholecystic changes and fluid, secondary to Alcoholic hepatitis-anasarca- hypoalbuminemic state (all from alcohol abuse) Normocytic iron deficiency anemia, due to endogenous over-anticoagulation Hypomagnesemia, hypokalemia, hyponatremia, replaced and resolved Nausea vomiting diarrhea, resolved with the treatment of the above Pain from recent falls with slow healing rib fractures Continued tobacco abuse, continued alcohol abuse Psychiatric-personality disorders, including depression, possibly antisocial personality disorders. - Time Spent with Patient Total time spent providing and/or coordinating discharge services: Greater than 30 minutes Medical - DS: Exam - Constitutional Vitals: Vital Signs Temp Pulse Resp BP BP Pulse Ox 01/24/18 07:48 98.4 F 82 12 94/57 96 01/24/18 04:15 12 01/23/18 23:25 97.6 F 87 16 126/79 96 01/23/18 20:00 98.0 F 89 24 H 156/85 97 01/23/18 16:06 98.1 F 16 105/66 97 01/23/18 11:14 98.6 F 18 126/85 95 Intake and Output 01/23/18 01/24/18 01/24/18 21:59 05:59 13:59 Intake Total 2750 / 2750 946 / 946 Output Total 2800 / 2800 2825 / 2825 325 / 325 Balance -50 / -50 -1879 / -1879 -325 / -325 Intake: Oral 2750 / 2750 946 / 946 Output: Void Amount 2800 / 2800 1050 / 1050 325 / 325 Urine/Stool Mix 1775 / 1775 Other: Meal Nourishment/Supplement prune juice(2) Percent of Meal Consumed 100% Feeding Ability Independent Stool Color Brown Stool Consistency Liquid Weight 119 lb 8 oz - Head Head exam: Present: atraumatic, normocephalic - Eye Eye exam: Present: EOMI Pupils: Present: normal accommodation, PERRL - ENT ENT exam: Present: mucous membranes moist - Neck Neck exam: Present: full ROM. Absent: lymphadenopathy, meningismus - Respiratory Respiratory exam: Present: CTAB. Absent: accessory muscle use - Cardiovascular Cardiovascular exam: Present: +S1, +S2. Absent: gallop, rubs - GI/Abdominal GI/Abdominal exam: Present: normal bowel sounds, soft. Absent: guarding, rebound, tenderness - Extremities Exam Extremities exam: Present: full ROM, normal capillary refill. Absent: pedal edema - Neurological Exam Neurological exam: Present: alert, CN II-XII intact, oriented X3 - Psychiatric Psychiatric exam: Present: flat affect Medical - DS: Data Procedures and tests throughout hospitalization: 2 units of PRBC transfusion, Abdominal pelvis CT with contrast Abdominal ultrasound to evaluate pericholecystic inflammatory changes/ gallbladder thickening Labs on day of discharge: Labs from last 24 hours 01/23/18 01/23/18 07:48 07:48 PT 12.9 INR 1.0 Sodium 131 L Potassium 4.4 Chloride 93 L Carbon Dioxide 27 Anion Gap 11.0 BUN 9 Creatinine 0.6 GFR Calculation 100 Glucose 80 Calcium 9.1 Total Bilirubin 0.5 AST 50 H ALT 348 H Alkaline Phosphatase 116 Total Protein 6.1 Albumin 3.4 Globulin 2.7 Albumin/Globulin Ratio 1.3 Medical - DS: A/P - Patient/Caregiver Discharge Instructions Activity: increase activity as tolerated Diet: Regular Diet, Low Fat, High Fiber - Problem Maintenance (1) Alcoholic hepatitis Status: Acute Qualifiers: Ascites presence: without ascites Qualified Code(s): K70.10 - Alcoholic hepatitis without ascites (2) Alcohol abuse Status: Chronic (3) Normocytic anemia Status: Acute Comment: Concern for GI bleeding (4) Hypomagnesemia Status: Acute (5) Hypokalemia Status: Acute (6) Hyponatremia Status: Acute (7) Nausea vomiting and diarrhea Status: Acute Comment: Intractable, peptic ulcer, hepatic alcoholic liver, vs. gallbladder etiologies, or others (8) Tobacco abuse Status: Chronic (9) Rib fracture Status: Chronic Qualifiers: Encounter type: subsequent encounter Rib fracture type: multiple ribs Fracture type: closed Laterality: left Fracture healing: with delayed healing Qualified Code(s): S22.42XG - Multiple fractures of ribs, left side, subsequent encounter for fracture with delayed healing - Follow up Plan Follow up with: Roman Stinson MD [Physician] - (She should follow with PCP Dr. Flores in 1-2 weeks, for alcoholic counseling, managing her alcoholic hepatitis, and health maintenance. However patient left AMA.) Disposition: Left Against Medical Advice Prognosis: Fair Rehab Potential: Fair Overall status at discharge: patient is back to baseline Medical - DS: Qual - VTE Deep Vein Thrombosis/Pulmonary Embolism Present on Admission: No
== END 2018-01-24 10:30 | disposition left against medical advice (07) | DRG 433 ==
LOC: ED 03:24 → INTOOBSV 11:10 → ICU 11:10 → MEDSUR 01-20 12:05
PROVIDERS: ADMIT Emergency Medicine; ATTEND Emergency Medicine

== ENCOUNTER 2018-02-09 13:08 | Observation (INO) ==
[2018-02-09] MEDS ORDERED: GADOTERIDOL INJ 15 ML/VIAL IV ONE (13:09)
[2018-02-09] MEDS ORDERED: LACTATED RINGERS 1,000 ML IV ONE ×2 (13:33→15:51)
[2018-02-09] MEDS ORDERED: ONDANSETRON 4 MG/2 ML VIAL IV ONE ×2 (13:40→15:51)
--- NOTE | 2018-02-09 13:55 | Emergency Department Note ---
Eye Problem HPI - General Chief complaint: Eye Problems Stated complaint: Vision problems Time Seen by Provider: 02/09/18 13:14 Source: patient, EMS Mode of arrival: ambulatory Limitations: no limitations - History of Present Illness HPI Narrative: 57-year-old female comes in complaining this morning of blurry vision and diplopia. This started this morning however her eyesight has been degenerating and she went and saw the petroleum production engineer a week ago who said that she needed a new prescription. The diplopia however is brand-new. She was here yesterday for nausea vomiting found to have hyponatremia and was given IV fluids by Dr. duke. This follows on the heels of prior admission from 01/15/2018 to 2017 when I admitted her to Dr. Howard for multiple complaints including electrolyte abnormalities and intractable pain from rib fractures. Please see those notes for details. Today she is not having nausea and vomiting. However last night after she went home from the ER she did have 2 beers and then this morning had 4 more after previously been without alcohol. She does have a resting tremor that she says does not improve with alcohol however she states that she does get nauseous as well as worsening tremors with smoking. - Related Data Previous Rx's Medication Instructions Recorded Ferrous Sulfate 325 mg PO TIDCC tablet 01/24/18 Folic Acid 1 mg PO DAILY tablet 01/24/18 Metoprolol Tartrate [Lopressor] 25 mg PO Q12H tablet 01/24/18 Multivit,Ther Iron,Ca,FA & Min 1 tab PO DAILY tablet 01/24/18 [Multivitamin W/Minerals] Spironolactone [Aldactone] 25 mg PO DAILY tablet 01/24/18 Thiamine [Vitamin B1] 100 mg PO QDAY #0 tablet 01/24/18 Ondansetron HCl [Zofran ODT] 4 mg SL Q4-6HP PRN #10 tab 02/08/18 Allergies Allergy/AdvReac Type Severity Reaction Status Date / Time clarithromycin [From Biaxin] Allergy Intermediate Vomiting Verified 01/08/18 08: 19 Review of Systems All systems ED: reviewed and negative except as stated. Past Medical History - Past Medical History Attestation: Yes: The following information was validated with the patient. Medical history: Reports: CHF, GERD, renal disease, other (malnutrition, failure to thrive, ETOH abuse, anemia, electrolyte imbalance,rhabdo,falls, PNA) Psychiatric history: Reports: anxiety, depression Surgical history ED: Reports: orthopedic, other (knee), tubal ligation - Social History smoking status: Current every day smoker Alcohol use: Reports: Daily, Heavy Physical Exam No acute distress resting comfortably. Notable resting coarse tremor in her head and bilateral upper extremities-contrary to what the patient tells me I do think this is improved with her taking alcohol, i.e. it was worse when I saw her without alcohol on board, suspect essential tremor. Normocephalic atraumatic. Conjunctive are clear sclerae white and nonicteric. Extraocular movements are intact. Pupils are equal round reactive light and accommodation. No nasal discharge or congestion. Oropharynx is pink and moist. Posterior pharynx is clear. Neck is supple without lymphadenopathy or thyromegaly. Heart is regular rate and rhythm no murmur appreciated. Lungs are clear to auscultation bilaterally without wheezes rales rhonchi or respiratory distress. Abdomen soft nontender nondistended. No peritoneal signs rigidity or guarding. no pedal edema. +2 radial pulse. Alert oriented. Cranial nerves II through XII grossly intact. Notes diplopia on testing. Visual acuity testing shows 20/50 one eye 20/70 the other. See nursing notes for details. She is tested wearing glasses with current prescription Limitations: no limitations Course Vital Signs Temperature 98.8 F 02/09/18 13:09 Pulse Rate 98 H 02/09/18 13:09 Respiratory Rate 18 02/09/18 13:09 Blood Pressure 127/77 02/09/18 13:09 Pulse Oximetry (%) 95 02/09/18 13:09 Temperature 98.8 F 02/09/18 13:09 Pulse Rate 97 H 02/09/18 17:53 Respiratory Rate 16 02/09/18 15:07 Blood Pressure 125/82 02/09/18 17:53 Pulse Oximetry (%) 96 02/09/18 17:53 Eye - Lab Data Lab results reviewed: Yes I reviewed the patient's lab results. Result diagrams: 02/09/18 13:40 02/09/18 13:40 Lab Results 02/09/18 02/09/18 02/09/18 Range/Units 13:40 13:40 14:25 WBC 7.3 (4.5-11.0) K/mcL RBC 3.10 L (4.00-5.20) M/mcL Hgb 9.9 L (12.0-15.0) g/dL Hct 29.0 L (36.0-48.0) % POC Hct 30.0 L (36.0-48.0) % MCV 93.6 (80.0-100.0) fL MCH 31.9 (26.0-34.0) pg MCHC 34.1 (31.0-36.0) g/dL RDW 18.3 H (11.5-14.5) % Plt Count 150 (140-440) K/mcL MPV 8.0 (7.4-10.4) fL Gran % 77.0 (38.0-78.0) % Lymph % (Auto) 15.6 (15.5-49.0) % [place] % (Auto) 5.9 (1.0-12.0) % Eos % (Auto) 1.4 (0.0-7.0) % Baso % (Auto) 0.1 (0.0-2.0) % Gran # 5.7 (1.8-8.0) K/mcL Lymph # (Auto) 1.1 L (1.5-4.8) K/mcL [place] # (Auto) 0.4 (0.1-0.9) K/mcL Eos # (Auto) 0.1 (0.0-0.7) K/mcL Baso # (Auto) 0 (0.0-0.3) K/mcL VBG Lactic Acid (0.5-2.2) mmol/L POC Sodium 119 L (133-145) mmol/L Sodium 118 L* (133-145) mmol/L POC Potassium 3.4 (3.3-5.1) mmol/L Potassium 3.6 (3.3-5.1) mmol/L POC Chloride 80 L (96-108) mmol/L Chloride 81 L (96-108) mmol/L Carbon Dioxide 24 (22-30) mmol/L POC Total CO2 26 (22-30) mmol/L Anion Gap 13.0 (8-16) POC BUN < 3 L (6-20) mg/dl BUN 3 L (6-20) mg/dl Creatinine 0.6 (0.6-1.1) mg/dl POC Creatinine 0.6 (0.6-1.1) mg/dl GFR Calculation 100 Glucose 91 (70-105) mg/dL POC Glucose 92 (70-105) mg/dL Calcium 8.6 (8.6-10.4) mg/dl POC WB Ioniz Calcium 0.99 L (1.16-1.32) mmol/L Magnesium 1.5 L (1.6-2.5) mg/dL Total Bilirubin 0.8 (0.0-1.0) mg/dL AST 41 H (0-37) U/l ALT 22 (0-40) U/l Alkaline Phosphatase 87 (39-117) U/L Total Protein 6.8 (5.9-8.4) gm/dL Albumin 3.9 (3.2-5.2) gm/dL Globulin 2.9 (2.2-3.7) gm/dL Albumin/Globulin Ratio 1.3 (1.0-2.3) Urine Color Straw Urine Appearance Clear Urine pH 7.0 (5.0-9.0) Ur Specific [place] 1.003 (1.000-1.035) Urine Protein Neg (NEG) mg/dL Urine Glucose (UA) Negative (NEG) mg/dL Urine Ketones Neg (NEG) mg/dL Urine Occult Blood Neg (<0.03) mg/dL Urine Nitrate Neg (NEG) Urine Bilirubin Neg (NEG) mg/dL Urine Urobilinogen Neg (NEG) mg/dL Ur Leukocyte Esterase Neg (NEG) /uL Ur Culture Indicated? No Urine Opiates Screen (NONDETECTED) Ur Oxycodone Screen (NONDETECTED) Urine Methadone Screen (NONDETECTED) Ur Barbiturates Screen (NONDETECTED) Ur Phencyclidine Scrn (NONDETECTED) Ur Amphetamines Screen (NONDETECTED) U Benzodiazepines Scrn (NONDETECTED) Urine Cocaine Screen (NONDETECTED) U Marijuana (THC) Screen (NONDETECTED) 02/09/18 02/09/18 02/09/18 Range/Units 14:26 14:26 17:42 WBC (4.5-11.0) K/mcL RBC (4.00-5.20) M/mcL Hgb (12.0-15.0) g/dL Hct (36.0-48.0) % POC Hct 31.0 L (36.0-48.0) % MCV (80.0-100.0) fL MCH (26.0-34.0) pg MCHC (31.0-36.0) g/dL RDW (11.5-14.5) % Plt Count (140-440) K/mcL MPV (7.4-10.4) fL Gran % (38.0-78.0) % Lymph % (Auto) (15.5-49.0) % [place] % (Auto) (1.0-12.0) % Eos % (Auto) (0.0-7.0) % Baso % (Auto) (0.0-2.0) % Gran # (1.8-8.0) K/mcL Lymph # (Auto) (1.5-4.8) K/mcL [place] # (Auto) (0.1-0.9) K/mcL Eos # (Auto) (0.0-0.7) K/mcL Baso # (Auto) (0.0-0.3) K/mcL VBG Lactic Acid 1.1 (0.5-2.2) mmol/L POC Sodium 126 L (133-145) mmol/L Sodium (133-145) mmol/L POC Potassium 3.2 L (3.3-5.1) mmol/L Potassium (3.3-5.1) mmol/L POC Chloride 86 L (96-108) mmol/L Chloride (96-108) mmol/L Carbon Dioxide (22-30) mmol/L POC Total CO2 27 (22-30) mmol/L Anion Gap (8-16) POC BUN < 3 L (6-20) mg/dl BUN (6-20) mg/dl Creatinine (0.6-1.1) mg/dl POC Creatinine 0.6 (0.6-1.1) mg/dl GFR Calculation Glucose (70-105) mg/dL POC Glucose 79 (70-105) mg/dL Calcium (8.6-10.4) mg/dl POC WB Ioniz Calcium 1.08 L (1.16-1.32) mmol/L Magnesium (1.6-2.5) mg/dL Total Bilirubin (0.0-1.0) mg/dL AST (0-37) U/l ALT (0-40) U/l Alkaline Phosphatase (39-117) U/L Total Protein (5.9-8.4) gm/dL Albumin (3.2-5.2) gm/dL Globulin (2.2-3.7) gm/dL Albumin/Globulin Ratio (1.0-2.3) Urine Color Urine Appearance Urine pH (5.0-9.0) Ur Specific [place] (1.000-1.035) Urine Protein (NEG) mg/dL Urine Glucose (UA) (NEG) mg/dL Urine Ketones (NEG) mg/dL Urine Occult Blood (<0.03) mg/dL Urine Nitrate (NEG) Urine Bilirubin (NEG) mg/dL Urine Urobilinogen (NEG) mg/dL Ur Leukocyte Esterase (NEG) /uL Ur Culture Indicated? Urine Opiates Screen None detected (NONDETECTED) Ur Oxycodone Screen None detected (NONDETECTED) Urine Methadone Screen None detected (NONDETECTED) Ur Barbiturates Screen None detected (NONDETECTED) Ur Phencyclidine Scrn None detected (NONDETECTED) Ur Amphetamines Screen None detected (NONDETECTED) U Benzodiazepines Scrn None detected (NONDETECTED) Urine Cocaine Screen None detected (NONDETECTED) U Marijuana (THC) Screen None detected (NONDETECTED) - Radiology Data Radiology results reviewed: Yes I reviewed the patient's radiology results. CT scan of the head was done for diplopia, findings copied and pasted below: IMPRESSION: 1. Mild atrophy - more than expected for age. No focal intracerebral abnormality 2. 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 Mild left mastoiditis Interpreted and Authenticated by: Hemanth Mccabe 02/09/18 Because of the coloboma I discussed the situation with Dr. Mccabe and he recommended MRI with I protocol. However before we could do this she does have a history of breast biopsy and there was a question of clips so chest x-ray and eye x-ray were done Chest x-ray shows early left lower lobe infiltrate when compared to previous eye x-rays are negative Disposition Pt seen by ACCOUNTING SYSTEM EXPERT/PA only: No Clinical Impression: Diplopia, Hyponatremia, Hypomagnesemia, Alcohol abuse Pneumonia Qualifiers: Pneumonia type: due to unspecified organism Laterality: left Lung location: lower lobe of lung Qualified Code(s): J18.1 - Lobar pneumonia, unspecified organism Summary: Initially treated with IV fluids and Zofran Laboratory shows significant hyponatremia as well as hypo-magnesemia. Started mag rider 2 g Chest x-ray shows left lower lobe infiltrate. Blood cultures ordered and then IV Rocephin Her nausea returned to the second dose of Zofran is given as well as more fluids Lorazepam ordered due to claustrophobia and need for MRI-showed no acute findings Repeat Chem-8 checked for sodium levels- this did come up some Discussed findings with the patient. She still having significant weakness which she associates with the hyponatremia but her blurry vision and diplopia have improved somewhat. She is agreeable with inpatient admission for further sorting out her electrolyte issues Discussed case with Dr. Mosley, our hospitalist, who agreed to come and see the patient for admission to the hospital Disposition: Xfer As Inpt ([facility]) Condition: Fair
--- NOTE | 2018-02-09 14:06 | Cat Scan Report ---
CLINICAL INFORMATION: Decreased vision and diplopia and resting tremor COMPARISON: None. TECHNIQUE: 2.5 mm helical slices were obtained in the skull base to vertex. Following reconstruction, axial reformatted images were reviewed at bone and parenchymal windows. The exam was performed using radiation dose optimization techniques including, but not limited to, automated exposure control, adjustment of the mA and/or kV according to patient size and use of iterative reconstruction technique. FINDINGS: The ventricles, sulci, fissures, and cisterns are symmetrically enlarged compatible with mild atrophy - more than expected for age. No extra-axial fluid collections appreciated. The duran-white matter of the cerebrum, brainstem and cerebellum are unremarkable. There is mild coloboma formation seen in both posterior ocular globes. Bone windows show no osseous abnormality. There is a small amount of fluid in the posterior left mastoid air cells. IMPRESSION: 1. Mild atrophy - more than expected for age. No focal intracerebral abnormality 2. 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 Mild left mastoiditis Interpreted and Authenticated by: Hemanth Mccabe 02/09/18
[2018-02-09 14:34] LABS: Basophils # (Auto) 0 K/mcL (0.0-0.3); Basophils % (Auto) 0.1 % (0.0-2.0); Eosinophils # (Auto) 0.1 K/mcL (0.0-0.7); Eosinophils % (Auto) 1.4 % (0.0-7.0); Lymphocytes # (Auto) 1.1 K/mcL (1.5-4.8); Lymphocytes % (Auto) 15.6 % (15.5-49.0); Mean Cell Volume 93.6 fL (80.0-100.0); Mean Corpuscular HGB Conc 34.1 g/dL (31.0-36.0); Mean Corpuscular Hemoglobin 31.9 pg (26.0-34.0); Monocytes # (Auto) 0.4 K/mcL (0.1-0.9); Monocytes % (Auto) 5.9 % (1.0-12.0); Platelet Count 150 K/mcL (140-440); Red Cell Distribution Width 18.3 % (11.5-14.5)
[2018-02-09 14:52] LABS: Appearance,Urine CLEAR; Bilirubin,Urine NEG (NEG); Color,Urine STRAW; Glucose,Urine (UA) NEGATIVE (NEG); Leukocyte Esterase,Urine NEG /uL (NEG); Protein,Urine NEG (NEG); Specific Gravity,Urine 1.003 (1.000-1.035); Urine Blood NEG mg/dL (<0.03); Urobilinogen,Urine NEG (NEG)
[2018-02-09 14:58] LABS: ALT/SGPT 22 U/l (0-40); Albumin 3.9 gm/dL (3.2-5.2); Albumin/Globulin Ratio 1.3 (1.0-2.3); Alkaline Phosphatase 87 U/L (39-117); Blood Urea Nitrogen 3 mg/dl (6-20)
[2018-02-09 15:01] LABS: Amphetamine Screen,Urine NONE DETECTED (NONDETECTED); Benzodiazepines Screen,Urine NONE DETECTED (NONDETECTED); Cocaine Screen,Urine NONE DETECTED (NONDETECTED); Opiate Screen,Urine NONE DETECTED (NONDETECTED); Oxycodone, Urine Screen NONE DETECTED (NONDETECTED)
[2018-02-09] MEDS ORDERED: LORazepam 2 MG/ML VIAL IV ONE (15:32)
[2018-02-09] MEDS ORDERED: MAGNESIUM SULFATE 2 GM/50 ML BAG IV ONE (15:49)
[2018-02-09] MEDS ORDERED: cefTRIAXone 1 GM VIAL IV ONE (15:52)
--- NOTE | 2018-02-09 15:52 | XRay Report ---
CLINICAL INFORMATION: ITS.REASON: patient needing MRI clearance for metal COMPARISON: 01/08/2018. FINDINGS: The heart size, mediastinum and pulmonary vessels are unremarkable. Minor bibasilar scarring is noted There are no effusions. The bones and soft tissues are within normal limits. IMPRESSION: No significant abnormality - stable Interpreted and Authenticated by: Hemanth Mccabe 02/09/18
--- NOTE | 2018-02-09 15:53 | XRay Report ---
CLINICAL INFORMATION: ITS.REASON: Pre MR screening COMPARISON: None. FINDINGS: No radiopaque foreign body identified. No osseous abnormality. Visualized sinuses are clear IMPRESSION: Negative Interpreted and Authenticated by: Hemanth Mccabe 02/09/18
--- NOTE | 2018-02-09 17:52 | Magnetic Resonance Report ---
CLINICAL INFORMATION: Diplopia, intermittent blurry vision and resting tremor COMPARISON: None. TECHNIQUE: Sagittal T1 FLAIR, axial diffusion ADC, T1 FLAIR, T2 FLAIR propeller, T2 propeller gradient, T1 post Magnevist and coronal T1 FLAIR post Magnevist images were acquired. FINDINGS: The ventricles, sulci, fissures and cisterns are symmetrically enlarged compatible with mild atrophy - no extra-axial fluid collections or masses appreciated. There are multiple chronic ischemic foci scattered throughout the deep cerebral white matter and and also a few scattered foci within the central crissy. There is no restricted diffusion, edema, mass effect or abnormal enhancement. The remaining orbits including the ocular globes, optic nerve, intra and extraconal fat and extraocular muscles are normal. IMPRESSION: 1. Mild atrophy and moderate scattered chronic ischemic foci in the cerebral white matter with a few chronic ischemic foci in the central crissy. The crissy lesions could involve the medial longitudinal fasciculus - another potential cause of double vision.On the basis of this study, the ocular globes are in conjugate position, however. The number of chronic ischemic foci is slightly more than is typically seen for senescent small vessel changes in a patient of this age. Other small vessel pathology should be entertained: Arteriosclerosis from diabetes, illicit drug use, migraine headache or collagen vascular diseases such as polyarteritis nodosa or lupus.. Interpreted and Authenticated by: Hemanth Mccabe 02/09/18
--- NOTE | 2018-02-09 19:33 | Internal Med History&Physical ---
Medical - H&P: HPI Patient information: Note initiated : 02/09/18 at 7:31 pm Service Date, if different from initiated Date: [] Patient: Do Cantu a 57 y/o F admitted on for Vision problems. Chief Complaint: Weakness, blurry and double vision History of present illness: Ms. Cantu is a 57 year old F with a history of ongoing alcohol abuse and hyponatremia. History is obtained with the patient, reviewing old records from this facility as well as [facility], summarized throughout below. The patient was seen at this facility on January 08 with rib fractures. She had fallen and struck the left side of her chest on the edge of the bathtub a few weeks previously. She returned on January 15 with confusion, was hospitalized until January 24 with hyponatremia, hypokalemia, hypomagnesemia, which point she also went through alcohol withdrawal, received a transfusion of red cells as well as FFP for coagulopathy. She left AGAINST MEDICAL ADVICE on her final hospital day. She returned here yesterday feeling weak, which she states is a symptom of hyponatremia. Her sodium was 124, she received 2 L of IV fluid. She returns today because this morning she was having blurry vision, was weak, thought her sodium might be low. EMS arrived, she noted she was seeing double ( horizontal diplopia). Initially in the ED, her sodium was 118. She is received 2 L of fluid and her sodium is now 126. She is still weak, still having minimal vision changes being hospitalized for further observation and treatment of her electrolyte abnormalities. Patient's hyponatremia dates back quite some time. 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 Back in December, she was hospitalized at [facility] when she presented with a serum sodium of 111. She has had several hospitalizations at that facility just this year, and appears to previously be well known with admissions related to complications of her ongoing alcohol abuse. Currently the patient feels her vision is almost resolved. She did see an sliver lapper, apparently is a new prescription for eyeglasses, which may part explain her blurry vision. She denies any fevers, chills, cough, sputum production, dyspnea, nausea, vomiting, diarrhea, abdominal distention, dysuria. She is having pain in her left chest wall related to her prior rib fractures. Is no history of cirrhosis or ascites, no history of congestive heart failure. No history of thyroid disease. She denies any current diuretic use ( see she tells me she only takes calcium, magnesium and other vitamin supplements at home). She does drink 4-7 proximal 12-14 ounce glasses of water a day. Her diet is often of prepared meals that are daily and the microwave, but she does try to eat daily, usually more than one meal. Her diet is not limited to "tea and toast". All systems: reviewed and no additional remarkable complaints except as stated Medical - H&P: H Medical history: Alcohol abuse Alcoholic hepatitis without ascites Diastolic dysfunction, grade I, EF 50-55% Frequent falls GERD (gastroesophageal reflux disease) Hypokalemia Hypomagnesemia Hyponatremia, diagnosed with beer drinker's potomania at [facility] Normocytic anemia Osteoarthritis Peptic ulcer disease Pneumonia Ribs, multiple fractures Surgical history: H/O knee surgery H/O tubal ligation Social history: The patient lives by herself. She has a bit of an estranged relationship with her 2 children and other family. She retired from [employer] in October. She smokes close to a pack a day, having previously cut down to 5-6 cigarettes a day. She currently is drinking 4 beers a day. Medical - H&P: Meds Home Medications Medication Instructions Recorded Confirmed Type Ferrous Sulfate 325 mg PO TIDCC tablet 01/24/18 02/09/18 Rx Folic Acid 1 mg PO DAILY tablet 01/24/18 02/09/18 Rx Metoprolol Tartrate [Lopressor] 25 mg PO Q12H tablet 01/24/18 02/09/18 Rx Multivit,Ther Iron,Ca,FA & Min 1 tab PO DAILY tablet 01/24/18 02/09/18 Rx [Multivitamin W/Minerals] Spironolactone [Aldactone] 25 mg PO DAILY tablet 01/24/18 02/09/18 Rx Thiamine [Vitamin B1] 100 mg PO QDAY #0 tablet 01/24/18 02/09/18 Rx Ondansetron HCl [Zofran ODT] 4 mg SL Q4-6HP PRN #10 tab 02/08/18 02/09/18 Rx Allergies Allergy/AdvReac Type Severity Reaction Status Date / Time clarithromycin [From Biaxin] Allergy Intermediate Vomiting Verified 01/08/18 08: 19 Medical - H&P: Exam - Constitutional Vitals: Temp Pulse Resp BP Pulse Ox 98.8 F 87 19 119/92 97 02/09/18 13:09 02/09/18 19:01 02/09/18 19:16 02/09/18 19:16 02/09/18 19:01 Exam: GENERAL: Thin, cachectic, alert, oriented, in no acute distress. HEENT: Atraumatic. PERRL, EOMI, conjunctiva clear, no scleral icterus. Hearing grossly intact. Oropharynx with moist mucous membranes, no lip or gum lesions, no pharyngeal erythema or exudate. Tongue midline, palate rises symmetrically. NECK: Supple without meningismus, no thyromegaly RESPIRATORY: Breath sounds clear bilaterally without wheezes or rhonchi. Respiratory effort is unlabored. CARDIOVASCULAR: Regular rate and rhythm, no murmur gallop or rub. No peripheral edema. Carotid pulses 2+ without bruit. Pedal pulses 2+. GI: Abdomen soft, nondistended, nontender, no guarding or rebound. Bowel sounds are present. No hepatosplenomegaly. LYMPHATIC: No cervical or supraclavicular lymphadenopathy MUSCULOSKELETAL: No joint erythema or swelling, normal range of motion in extremities. Muscle mass decreased. Strength 5-/5 in the upper and lower extremities with generalized weakness. SKIN: Intact, warm, dry. Skin turgor decreased. NEUROLOGIC: Cranial nerves II through XII intact, VF intact to confrontation, no diplopia on exam. Acuity L-20/50, R-20/70. Sensation intact to light touch bilaterally. PSYCHIATRIC: Alert, oriented x3, normal affect, decreased insight. Medical - H&P: Reslt - Labs CBC & Chem 7: 02/09/18 13:40 02/09/18 13:40 Labs: Short CBC 02/09/18 Range/Units 13:40 WBC 7.3 (4.5-11.0) K/mcL Hgb 9.9 L (12.0-15.0) g/dL Hct 29.0 L (36.0-48.0) % Plt Count 150 (140-440) K/mcL BMP 02/09/18 13:40 Sodium 118 L* Potassium 3.6 Chloride 81 L Carbon Dioxide 24 BUN 3 L Creatinine 0.6 Glucose 91 Calcium 8.6 Liver Function 02/09/18 Range/Units 13:40 Total Bilirubin 0.8 (0.0-1.0) mg/dL AST 41 H (0-37) U/l ALT 22 (0-40) U/l Alkaline Phosphatase 87 (39-117) U/L Albumin 3.9 (3.2-5.2) gm/dL Urine 02/09/18 Range/Units 14:25 Urine Color Straw Urine Appearance Clear Urine pH 7.0 (5.0-9.0) Ur Specific [place] 1.003 (1.000-1.035) Urine Protein Neg (NEG) mg/dL Urine Glucose (UA) Negative (NEG) mg/dL - Imaging and Cardiology Chest x-ray Status: image reviewed by me Additional comments: IMPRESSION: No significant abnormality - stable CT scan - head Status: image reviewed by me Additional comments: IMPRESSION: 1. Mild atrophy - more than expected for age. No focal intracerebral abnormality 2. 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 Mild left mastoiditis MRI - head Status: image reviewed by me Additional comments: IMPRESSION: 1. Mild atrophy and moderate scattered chronic ischemic foci in the cerebral white matter with a few chronic ischemic foci in the central crissy. The crissy lesions could involve the medial longitudinal fasciculus- another potential cause of double vision.On the basis of this study, the ocular globes are in conjugate position, however. The number of chronic ischemic foci is slightly more than is typically seen for senescent small vessel changes in a patient of this age. Other small vessel pathology should be entertained: Arteriosclerosis from diabetes, illicit drug use, migraine headache or collagen vascular diseases such as polyarteritis nodosa or lupus.. Medical - H&P: A/P (1) Hyponatremia Current visit: Yes Status: Acute (2) Diplopia Current visit: Yes Status: Acute (3) Hypokalemia Current visit: No Status: Acute (4) Hypomagnesemia Current visit: Yes Status: Acute (5) Alcohol abuse Current visit: Yes Status: Chronic - Narrative A/P Narrative: 57-year-old female with history of ongoing alcohol abuse presents with weakness , blurry vision and double vision. Found to have critical hyponatremia with serum sodium 118. Hyponatremia. This previously been diagnosed with beer drinkers potomania. Has had normal thyroid function in the past. Start appear to be on diuretics. Is not in a volume long/edematous state currently. If anything, appeared to be a bit dehydrated. She also drinks 4-7 cups of water daily, given her small body size, this may be contributing to a dilutional hyponatremia. I do not see urine electrolytes, which may help sort out affect. Of note she is listed to be on aspirin lactone and metoprolol at home, that on her home med list, though she tells me she is only taking vitamins and she is able to name off the contents of all her pill bottles she has at home. That does not include a diuretic. I am a bit concerned at the rate of her correction of sodium. Given the starting value of 118, we should try to limit any increases in serum sodium to 8 mEq in 24 hours. She does have some ischemic changes in her crissy, but has no symptoms to suggest that she has had pontine myelinolysis (such as aphasi/ dysphagia, weakness; diplopia would not be a symptom) Plan: 1. Hospitalized in observation 2. Recheck basic panel this evening, consider further gentle fluids 3. Check TSH and free T4 4. Check a.m. cortisol 5. Check urine osmolality and sodium Diplopia. Also associated with blurry vision. Now resolving. Unclear if this was related to her sodium level rather process. MRI of the brain is without evidence of acute infarct and the gaze is conjugate on imaging. The time of my exam the patient was not experiencing diplopia. Heart of her blurry vision may be related to a need for new prescription glasses. Plan: Monitor, neuro checks Hypokalemia, hypomagnesemia. Likely due to decreased dietary intake Plan: Replete. Alcohol abuse. Ongoing. Patient currently drinking 4 beers per evening. Had significant alcohol withdrawal with higher alcohol intake during last hospitalization. Plan: Monitor for evidence withdrawal, if needed start CIWA protocol Apparently the patient received ceftriaxone in the ED and had blood cultures drawn. Unclear for which reason, she has no evidence of infection on history, physical exam or any of her laboratory or radiograph studies except for some changes in her mastoid which do not appear to be causing her problems. We'll not provide further antibiotic therapy.
[2018-02-09] MEDS ORDERED: ONDANSETRON 4 MG/2 ML VIAL IV PRN (20:01)
[2018-02-09 20:46] LABS: Free T4 (Free Thyroxine) 1.4 ng/dl (0.7-1.7)
[2018-02-09 20:55] LABS: Osmolality,Urine 84 mOsm/kg (80-1000)
[2018-02-09 23:00] LABS: Blood Urea Nitrogen 4 mg/dl (6-20)
[2018-02-09] MEDS ORDERED: POTASSIUM CHLORIDE 20 MEQ PACKET PO ONE (23:39)
[2018-02-09] MEDS ORDERED: POTASSIUM CHLORIDE 10 MEQ TABLET PO ONE (23:54)
[2018-02-09] MEDS: 0.9 % SODIUM CHLORIDE 10 ML SYRINGE IV SCH (23:58)
[2018-02-10] MEDS ORDERED: POTASSIUM CHLORIDE 20 MEQ PACKET ONE (00:01)
[2018-02-10] MEDS: ACETAMINOPHEN 325 MG TABLET PO PRN ×3 (00:58→15:09)
[2018-02-10 05:32] LABS: Blood Urea Nitrogen 9 mg/dl (6-20)
[2018-02-10] MEDS: 0.9 % SODIUM CHLORIDE 10 ML SYRINGE IV SCH (05:47)
[2018-02-10] MEDS ORDERED: PANTOPRAZOLE 40 MG TABLET PO SCH (07:30)
--- NOTE | 2018-02-10 13:23 | Discharge Summary ---
Medical - DS: Prov Patient information: Note initiated : 02/10/18 at 1:15 pm Service Date, if different from initiated Date: [] Patient: Do Cantu 57 y/o F admitted on 02/09/18 for Vision problems. Chief Complaint: [] Date of admission: 02/09/18 19:54 Discharge date: 02/10/18 Primary care physician: None Admitting clinician: Angela Mora Consults: 02/09/18 18:13 Consult to Physician [CONS] Stat Comment: Consulting Provider: Angela Mora Reason For Exam: Physician to Consult Attending physician on discharge: Angela Mora Medical - DS: Meds - Discharge Medications Active and Home Medications: Home Medications Ferrous Sulfate 325 mg PO TIDCC tablet 01/24/18 [Rx Confirmed 02/09/18 Last Taken Unknown] Folic Acid 1 mg PO DAILY tablet 01/24/18 [Rx Confirmed 02/09/18 Last Taken Unknown] Metoprolol Tartrate [Lopressor] 25 mg PO Q12H tablet 01/24/18 [Rx Confirmed 08/28 Last Taken Unknown] Multivit,Ther Iron,Ca,FA & Min [Multivitamin W/Minerals] 1 tab PO DAILY tablet 01/24/18 [Rx Confirmed 02/09/18 Last Taken Unknown] Spironolactone [Aldactone] 25 mg PO DAILY tablet 01/24/18 [Rx Confirmed Last Taken Unknown] Thiamine [Vitamin B1] 100 mg PO QDAY #0 tablet 01/24/18 [Rx Confirmed 02/09/18 Last Taken Unknown] Ondansetron HCl [Zofran ODT] 4 mg SL Q4-6HP PRN #10 tab 02/08/18 [Rx Confirmed 02/09/18 Last Taken Unknown] Medical - DS: Hosp Hospital course: Mr. Cantu is a 57 year old F hospitalized after presenting in the ED with complaints of blurry and double vision. She was found to have recurrent hyponatremia, initial serum sodium 118. In the ED, she received fluid boluses. Sodium increased to 124. Her vision improved. She was hospitalized overnight , her sodium was allowed to continue to slowly correct on its own, up to 129 at discharge. She received no further IV fluids, as she was slowly correcting with increased nutrition. In regards to her vision symptoms that resolved with improvement in her hyponatremia. MRI of the brain showed no findings that could explain her double vision. By the time she was hospitalized, that had resolved. 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 Evaluation of her hyponatremia revealed urine sodium <20 and Osm 84, consistent with hyponatremia associated with malnutrition/decreased intake of osmotically active foods. Patient's diet is poor, she eats few meals a day, drinks 4 beers a night. She does carry a diagnosis of beer drinkers potomania, and current evaluation is supportive of that diagnosis. Cortisol was normal, TSH was normal. She was seen by the dietitian, was counseled on taking small frequent meals, increasing her protein intake, increasing her intake of foods rich in potassium needs him in sodium. Overall him reviewing records, the patient remains at high risk for recurrent symptomatic hyponatremia due to her ongoing alcohol abuse and decreased insight into her condition. Case management has set her up with [facility] next week, to follow-up her medical issues. Discharge diagnosis: Hyponatremia secondary to malnutrition and alcohol abuse Secondary discharge diagnosis: Alcohol abuse - Time Spent with Patient Total time spent providing and/or coordinating discharge services: Greater than 30 minutes Medical - DS: Exam - Constitutional Vitals: Vital Signs Temp Pulse Pulse Resp BP BP BP 02/10/18 11:37 97.0 F 93 H 18 125/72 02/10/18 06:25 97.4 F 20 128/79 02/10/18 04:28 98.8 F 12 117/73 02/10/18 00:04 99.6 F H 20 132/79 02/09/18 20:27 99.7 F H 22 119/74 02/09/18 19:58 133/84 02/09/18 19:46 24 H 133/84 02/09/18 19:31 95 H 22 135/83 135/83 02/09/18 19:16 19 119/92 02/09/18 19:01 87 26 H 117/79 02/09/18 18:46 88 18 113/76 02/09/18 18:35 87 16 113/74 02/09/18 18:34 87 25 H 02/09/18 18:31 88 20 113/74 02/09/18 18:16 88 19 117/74 02/09/18 18:01 92 H 16 127/78 02/09/18 17:53 97 H 125/82 02/09/18 17:50 94 H 125/82 02/09/18 16:02 85 02/09/18 15:35 102 H 137/97 02/09/18 15:16 20 132/87 02/09/18 15:07 91 H 16 127/71 02/09/18 15:01 21 127/71 02/09/18 14:46 88 17 124/78 02/09/18 14:31 89 23 H 117/69 02/09/18 14:18 89 18 133/76 02/09/18 14:16 86 20 133/76 02/09/18 14:07 20 126/74 02/09/18 14:06 22 124/76 02/09/18 14:04 139/82 02/09/18 13:31 95 H 19 118/70 02/09/18 13:16 98 H 25 H 108/89 Pulse Ox 02/10/18 11:37 99 02/10/18 06:25 97 02/10/18 04:28 98 02/10/18 00:04 96 02/09/18 20:27 96 02/09/18 19:58 02/09/18 19:46 02/09/18 19:31 97 02/09/18 19:16 02/09/18 19:01 97 02/09/18 18:46 95 02/09/18 18:35 96 02/09/18 18:34 95 02/09/18 18:31 95 02/09/18 18:16 95 02/09/18 18:01 95 02/09/18 17:53 96 02/09/18 17:50 97 02/09/18 16:02 96 02/09/18 15:35 96 02/09/18 15:16 02/09/18 15:07 97 02/09/18 15:01 02/09/18 14:46 97 02/09/18 14:31 95 02/09/18 14:18 96 02/09/18 14:16 97 02/09/18 14:07 02/09/18 14:06 02/09/18 14:04 02/09/18 13:31 94 02/09/18 13:16 96 Intake and Output 02/09/18 02/10/18 02/10/18 21:59 05:59 13:59 Intake Total 2049 930 / 930 1979 Output Total 1100 / 1100 1675 / 1675 Balance 2049 -170 / -170 305 / 305 Intake: IV 2049 Lactated Ringers 1,000 ml @ 1999 Wide Open IV BOLUS ONE Rx#: [id number] Oral 570 / 570 1979 GI Tube Flush 360 / 360 Output: Void Amount 1100 / 1100 1675 / 1675 Other: Meal Egg salad sandwich Lunch Percent of Meal Consumed 100% 25% Feeding Ability Independent Independent Stool Size Small Moderate Smear Stool Color Brown Brown Stool Consistency Loose Soft Loose # Voids 1 1 # Bowel Movements 1 1 # of times incontinent of 1 Bowels Weight 117 lb 8 oz 117 lb 8 oz Patient Weight 02/11/18 05:59 Weight 117 lb 8 oz Additional comments: General: Thin, awake, alert, no acute distress Chest: Clear, unlabored Cardiovascular: Regular Abdomen: Soft, nontender, nondistended, no ascites Neuro: Awake, alert, oriented to person, place, situation. Displays impaired insight into her condition. Vision is intact with no diplopia, able to correctly identify the number of fingers presented. Medical - DS: Data Procedures and tests throughout hospitalization: Chest x-ray IMPRESSION: No significant abnormality - stable CT scan - head IMPRESSION: 1. Mild atrophy - more than expected for age. No focal intracerebral abnormality 2. 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 Mild left mastoiditis MRI - head IMPRESSION: 1. Mild atrophy and moderate scattered chronic ischemic foci in the cerebral white matter with a few chronic ischemic foci in the central crissy. The crissy lesions could involve the medial longitudinal fasciculus- another potential cause of double vision.On the basis of this study, the ocular globes are in conjugate position, however. The number of chronic ischemic foci is slightly more than is typically seen for senescent small vessel changes in a patient of this age. Other small vessel pathology should be entertained: Arteriosclerosis from diabetes, illicit drug use, migraine headache or collagen vascular diseases such as polyarteritis nodosa or lupus.. Labs on day of discharge: Labs from last 24 hours 02/10/18 02/10/18 02/09/18 03:53 03:53 21:10 WBC RBC Hgb Hct POC Hct MCV MCH MCHC RDW Plt Count MPV Gran % Lymph % (Auto) Wilkinson % (Auto) Eos % (Auto) Baso % (Auto) Gran # Lymph # (Auto) Wilkinson # (Auto) Eos # (Auto) Baso # (Auto) VBG Lactic Acid POC Sodium Sodium 129 L 128 L POC Potassium Potassium 3.7 3.1 L POC Chloride Chloride 92 L 90 L Carbon Dioxide 27 26 POC Total CO2 Anion Gap 10.0 12.0 POC BUN BUN 9 4 L Creatinine 0.8 0.9 POC Creatinine GFR Calculation 81 70 Glucose 134 H 125 H POC Glucose Osmolality Calcium 8.8 8.8 POC WB Ioniz Calcium Magnesium 1.9 Total Bilirubin AST ALT Alkaline Phosphatase Total Protein Albumin Globulin Albumin/Globulin Ratio TSH Free T4 Random Cortisol 12.55 Urine Color Urine Appearance Urine pH Ur Specific Sterling Urine Protein Urine Glucose (UA) Urine Ketones Urine Occult Blood Urine Nitrate Urine Bilirubin Urine Urobilinogen Ur Leukocyte Esterase Ur Culture Indicated? Urine Osmolality Ur Random Sodium Urine Opiates Screen Ur Opiates Confirm Ur Oxycodone Screen Urine Methadone Screen Ur Methadone Confirm Ur Barbiturates Screen Ur Barbiturate Confirm Ur Phencyclidine Scrn Urine PCP Confirm Ur Amphetamines Screen U Amphetamines Confirm U Benzodiazepines Scrn U Benzodiazepine Confm Urine Cocaine Screen Urine Cocaine Confirm U Cannabinoids Confirm U Marijuana (THC) Screen 02/09/18 02/09/18 02/09/18 17:42 14:31 14:26 WBC RBC Hgb Hct POC Hct 31.0 L MCV MCH MCHC RDW Plt Count MPV Gran % Lymph % (Auto) Wilkinson % (Auto) Eos % (Auto) Baso % (Auto) Gran # Lymph # (Auto) Wilkinson # (Auto) Eos # (Auto) Baso # (Auto) VBG Lactic Acid POC Sodium 126 L Sodium POC Potassium 3.2 L Potassium POC Chloride 86 L Chloride Carbon Dioxide POC Total CO2 27 Anion Gap POC BUN < 3 L BUN Creatinine POC Creatinine 0.6 GFR Calculation Glucose POC Glucose 79 Osmolality Calcium POC WB Ioniz Calcium 1.08 L Magnesium Total Bilirubin AST ALT Alkaline Phosphatase Total Protein Albumin Globulin Albumin/Globulin Ratio TSH Free T4 Random Cortisol Urine Color Urine Appearance Urine pH Ur Specific Sterling Urine Protein Urine Glucose (UA) Urine Ketones Urine Occult Blood Urine Nitrate Urine Bilirubin Urine Urobilinogen Ur Leukocyte Esterase Ur Culture Indicated? Urine Osmolality 84 Ur Random Sodium < 20 Urine Opiates Screen None detected Ur Opiates Confirm Not Reportable Ur Oxycodone Screen None detected Urine Methadone Screen None detected Ur Methadone Confirm Not Reportable Ur Barbiturates Screen None detected Ur Barbiturate Confirm Not Reportable Ur Phencyclidine Scrn None detected Urine PCP Confirm Not Reportable Ur Amphetamines Screen None detected U Amphetamines Confirm Not Reportable U Benzodiazepines Scrn None detected U Benzodiazepine Confm Not Reportable Urine Cocaine Screen None detected Urine Cocaine Confirm Not Reportable U Cannabinoids Confirm Not Reportable U Marijuana (THC) Screen None detected 02/09/18 02/09/18 02/09/18 14:26 14:25 13:40 WBC RBC Hgb Hct POC Hct MCV MCH MCHC RDW Plt Count MPV Gran % Lymph % (Auto) Wilkinson % (Auto) Eos % (Auto) Baso % (Auto) Gran # Lymph # (Auto) Wilkinson # (Auto) Eos # (Auto) Baso # (Auto) VBG Lactic Acid 1.1 POC Sodium Sodium POC Potassium Potassium POC Chloride Chloride Carbon Dioxide POC Total CO2 Anion Gap POC BUN BUN Creatinine POC Creatinine GFR Calculation Glucose POC Glucose Osmolality 263 L Calcium POC WB Ioniz Calcium Magnesium Total Bilirubin AST ALT Alkaline Phosphatase Total Protein Albumin Globulin Albumin/Globulin Ratio TSH 2.27 Free T4 1.40 Random Cortisol Urine Color Straw Urine Appearance Clear Urine pH 7.0 Ur Specific Sterling 1.003 Urine Protein Neg Urine Glucose (UA) Negative Urine Ketones Neg Urine Occult Blood Neg Urine Nitrate Neg Urine Bilirubin Neg Urine Urobilinogen Neg Ur Leukocyte Esterase Neg Ur Culture Indicated? No Urine Osmolality Ur Random Sodium Urine Opiates Screen Ur Opiates Confirm Ur Oxycodone Screen Urine Methadone Screen Ur Methadone Confirm Ur Barbiturates Screen Ur Barbiturate Confirm Ur Phencyclidine Scrn Urine PCP Confirm Ur Amphetamines Screen U Amphetamines Confirm U Benzodiazepines Scrn U Benzodiazepine Confm Urine Cocaine Screen Urine Cocaine Confirm U Cannabinoids Confirm U Marijuana (THC) Screen 02/09/18 02/09/18 13:40 13:40 WBC 7.3 RBC 3.10 L Hgb 9.9 L Hct 29.0 L POC Hct 30.0 L MCV 93.6 MCH 31.9 MCHC 34.1 RDW 18.3 H Plt Count 150 MPV 8.0 Gran % 77.0 Lymph % (Auto) 15.6 Wilkinson % (Auto) 5.9 Eos % (Auto) 1.4 Baso % (Auto) 0.1 Gran # 5.7 Lymph # (Auto) 1.1 L Wilkinson # (Auto) 0.4 Eos # (Auto) 0.1 Baso # (Auto) 0 VBG Lactic Acid POC Sodium 119 L Sodium 118 L* POC Potassium 3.4 Potassium 3.6 POC Chloride 80 L Chloride 81 L Carbon Dioxide 24 POC Total CO2 26 Anion Gap 13.0 POC BUN < 3 L BUN 3 L Creatinine 0.6 POC Creatinine 0.6 GFR Calculation 100 Glucose 91 POC Glucose 92 Osmolality Calcium 8.6 POC WB Ioniz Calcium 0.99 L Magnesium 1.5 L Total Bilirubin 0.8 AST 41 H ALT 22 Alkaline Phosphatase 87 Total Protein 6.8 Albumin 3.9 Globulin 2.9 Albumin/Globulin Ratio 1.3 TSH Free T4 Random Cortisol Urine Color Urine Appearance Urine pH Ur Specific Sterling Urine Protein Urine Glucose (UA) Urine Ketones Urine Occult Blood Urine Nitrate Urine Bilirubin Urine Urobilinogen Ur Leukocyte Esterase Ur Culture Indicated? Urine Osmolality Ur Random Sodium Urine Opiates Screen Ur Opiates Confirm Ur Oxycodone Screen Urine Methadone Screen Ur Methadone Confirm Ur Barbiturates Screen Ur Barbiturate Confirm Ur Phencyclidine Scrn Urine PCP Confirm Ur Amphetamines Screen U Amphetamines Confirm U Benzodiazepines Scrn U Benzodiazepine Confm Urine Cocaine Screen Urine Cocaine Confirm U Cannabinoids Confirm U Marijuana (THC) Screen Medical - DS: A/P - Patient/Caregiver Discharge Instructions Activity: increase activity as tolerated, other (Stop further alcohol use) Diet: Regular Diet Additional Instructions: Take frequent, small meals; increase protein intake; follow information given to you by the dietitian. Follow-up with [facility] clinic. - Problem Maintenance (1) Hyponatremia Status: Chronic (2) Diplopia Status: Resolved (3) Hypokalemia Status: Resolved (4) Hypomagnesemia Status: Resolved (5) Alcohol abuse Status: Chronic - Follow up Plan Follow up with: Bree Salazar ARNP [Nurse Practitioner] - (To establish care at [facility]) Disposition: Home, Self-Care Prognosis: Fair Rehab Potential: Fair Overall status at discharge: patient is back to baseline Medical - DS: Qual - VTE Deep Vein Thrombosis/Pulmonary Embolism Present on Admission: No
== END 2018-02-10 15:30 | disposition home or self-care (01) ==
LOC: ED 13:08 → ICU 13:08
PROVIDERS: ADMIT Internal Medicine; ATTEND Internal Medicine

== ENCOUNTER 2018-04-24 09:40 | Inpatient (IN) ==
[2018-04-24] MEDS ORDERED: 0.9 % SODIUM CHLORIDE 1,000 ML IV ONE ×2 (09:46→11:25)
[2018-04-24] MEDS ORDERED: POTASSIUM CHLORIDE 20 MEQ in DEXTROSE 5% IN WATER 250 ML IV ONE (10:15)
--- NOTE | 2018-04-24 10:19 | XRay Report ---
HISTORY: Increased weakness with chafing on the skin FINDINGS: The lungs are clear normally expanded. The heart size and pulmonary vasculature are normal. Mediastinum, radha and pleura are normal. Acute fractures are present laterally in the right eighth, ninth and 10th ribs. There is no pneumothorax or pleural effusion. There are old healed left lateral rib fractures. IMPRESSION: Acute nondisplaced fractures laterally in the right eighth, ninth and 10th ribs Interpreted and Authenticated by: Imer Flores 04/24/18
[2018-04-24 10:33] LABS: Mean Cell Volume 96.8 fL (80.0-100.0); Mean Corpuscular HGB Conc 32.6 g/dL (31.0-36.0); Mean Corpuscular Hemoglobin 31.6 pg (26.0-34.0); Platelet Count 741 K/mcL (140-440); RBC 3.68 M/mcL (4.00-5.20); Red Cell Distribution Width 16.2 % (11.5-14.5)
[2018-04-24] MEDS ORDERED: POTASSIUM CHLORIDE 20 MEQ, MAGNESIUM SULFATE 16.24 MEQ, THIAMINE 100 MG, MVI, ADULT NO.... IV SCH (10:45)
[2018-04-24 10:59] LABS: ALT/SGPT 21 U/l (0-40); Albumin 3.2 gm/dL (3.2-5.2); Alkaline Phosphatase 151 U/L (39-117); Blood Urea Nitrogen 11 mg/dl (6-20)
[2018-04-24] MEDS ORDERED: HYDROcodone/APAP 5/325MG TABLET PO ONE (11:05)
[2018-04-24 11:20] LABS: Anisocytosis 1+ (NONE SEEN); Eosinophils % (Manual) 1 % (0-7); Lymphocytes % 13 % (15-49); Monocytes % (Manual) 2 % (1-12); Platelet Estimate INCREASED (NORMAL); RBC Morphology ABNORM (NORMAL); Segmented Neutrophils % 83 % (38-78)
[2018-04-24] MEDS ORDERED: cefTRIAXone 1 GM VIAL IV ONE (11:29)
[2018-04-24] MEDS ORDERED: ONDANSETRON 4 MG/2 ML VIAL IV ONE (12:03)
--- NOTE | 2018-04-24 12:22 | Emergency Department Note ---
Weakness HPI - General Chief complaint: Weakness Stated complaint: chafing on back of legs, smells of urine Time Seen by Provider: 04/24/18 09:44 Mode of arrival: ambulatory Limitations: no limitations - History of Present Illness HPI Narrative: 58-year-old female presents with multiple complaints. States she has had flulike symptoms for the last 2 weeks and has been laying in bed in her own urine. She has however been laying in bed smoking and drinking whiskey daily. She reports sores to the back of her legs that are tender. Positive chills, unknown fever. Has had diarrhea intermittently. No vomiting. No abdominal pain. States the only pain she has is to the back of her legs and her right rib area when she was shaking and fell into something a few days ago. She is a poor historian and is not clear how long ago that was or exactly what happened. She does note that she is a heavy daily drinker and whiskey is her drink of choice. She notes she lives alone and does not have any family here locally. No cough or cold symptoms. Associated symptoms: Reports: fever/chills, loss of appetite, nausea/vomiting, myalgias. Denies: chest pain, dark stools, diaphoresis, shortness of breath, syncope - Related Data Previous Rx's Medication Instructions Recorded Ferrous Sulfate 325 mg PO TIDCC tablet 01/24/18 Folic Acid 1 mg PO DAILY tablet 01/24/18 Multivit,Ther Iron,Ca,FA & Min 1 tab PO DAILY tablet 01/24/18 [Multivitamin W/Minerals] Thiamine [Vitamin B1] 100 mg PO QDAY #0 tablet 01/24/18 Ondansetron HCl [Zofran ODT] 4 mg SL Q4-6HP PRN #10 tab 02/08/18 Allergies Allergy/AdvReac Type Severity Reaction Status Date / Time clarithromycin [From Biaxin] Allergy Intermediate Vomiting Verified 03/04/18 02: 12 Review of Systems All systems ED: reviewed and negative except as stated. Past Medical History - Past Medical History [facility] Narrative: Medical History (Last Updated 02/09/18 @ 20:06 by Angela Mora MD) Alcohol abuse (Acute) Alcoholic hepatitis without ascites (Acute) Diastolic dysfunction (Acute) Frequent falls (Acute) GERD (gastroesophageal reflux disease) (Acute) Hypokalemia (Acute) Hypomagnesemia (Acute) Hyponatremia (Acute) Malnutrition (Acute) Normocytic anemia (Acute) Osteoarthritis (Acute) Peptic ulcer disease (Acute) Pneumonia (Acute) Ribs, multiple fractures (Acute) Past Surgical History (Last Updated 02/09/18 @ 20:01 by Angela Mora MD) H/O knee surgery (Acute) H/O tubal ligation (Acute) Medical history: Reports: CHF, GERD, renal disease, other (malnutrition, failure to thrive, ETOH abuse, anemia, electrolyte imbalance,rhabdo,falls, PNA) Psychiatric history: Reports: anxiety, depression Surgical history ED: Reports: orthopedic, other (knee), tubal ligation - Social History smoking status: Current every day smoker Alcohol use: Reports: Daily, Heavy Last drink: hours (ago) (12) Drug use: Reports: none Physical Exam Limitations: no limitations General appearance: alert, other (tremors, unkept. covered in old feces and urine from head to toe) Head: atraumatic, normocephalic, normal inspection Eye: Present: normal appearance. Absent: conjunctival injection ENT: normal exam, normal oropharynx, mucous membranes moist, TM's normal bilaterally, normal external ear exam Neck: Present: normal inspection, trachea midline. Absent: tenderness, lymphadenopathy Chest: Present: symmetric chest wall rise, tenderness (right lateral ribs tender with bruising present. No crepitus or deformity) Respiratory: Present: normal lung sounds bilaterally, wheezes (faint bases bilat expiration). Absent: respiratory distress, accessory muscle use Cardiovascular: Present: regular rate, normal heart sounds Abdominal: Present: soft, normal bowel sounds. Absent: distention, tenderness, guarding Extremities: Present: normal inspection. Absent: pedal edema Neurological: Present: alert, oriented X3 Psychiatric: Present: normal affect, normal mood Skin: Present: warm, other (thin, frail, siginificant skin breakdown to the posterior legs from the buttocks down to the posterior knee area with stage II pressure ulcer, red, peeling skin which again is covered in urine and feces) Course Course Narrative: At [address] Savage and he will accept patient will admit. Vital Signs Temperature 97.0 F 04/24/18 09:41 Pulse Rate 99 H 04/24/18 09:41 Respiratory Rate 18 10/15/18 09:41 Blood Pressure 112/68 10/15/18 09:41 Temperature 97.0 F 04/24/18 09:41 Pulse Rate 81 04/24/18 11:13 Respiratory Rate 28 H 04/24/18 12:06 Blood Pressure 124/77 04/24/18 12:06 Pulse Oximetry (%) 99 04/24/18 11:13 Weakness - Lab Data Lab results reviewed: Yes I reviewed the patient's lab results. Result diagrams: 04/24/18 09:58 04/24/18 09:59 Lab Results 04/24/18 04/24/18 04/24/18 Range/Units 09:58 09:59 09:59 WBC 9.4 (4.5-11.0) K/mcL RBC 3.68 L (4.00-5.20) M/mcL Hgb 11.6 L (12.0-15.0) g/dL Hct 35.7 L (36.0-48.0) % POC Hct (36.0-48.0) % MCV 96.8 (80.0-100.0) fL MCH 31.6 (26.0-34.0) pg MCHC 32.6 (31.0-36.0) g/dL RDW 16.2 H (11.5-14.5) % Plt Count 741 H (140-440) K/mcL MPV 6.5 L (7.4-10.4) fL Total Counted 100 Seg Neutrophils % 83 H (38-78) % Band Neutrophils % Not Reportable Lymphocytes % 13 L (15-49) % Monocytes % (Manual) 2 (1-12) % Eosinophils % (Manual) 1 (0-7) % Reactive Lymphocytes 1 (0-2) % Platelet Estimate Increased (NORMAL) RBC Morphology Abnorm A (NORMAL) Polychromasia Few A (NONE SEEN) Anisocytosis 1+ A (NONE SEEN) VBG Lactic Acid 4.7 H* (0.5-2.2) mmol/L POC Sodium (133-145) mmol/L Sodium 135 (133-145) mmol/L POC Potassium (3.3-5.1) mmol/L Potassium 2.7 L* (3.3-5.1) mmol/L POC Chloride (96-108) mmol/L Chloride 88 L (96-108) mmol/L Carbon Dioxide 25 (22-30) mmol/L POC Total CO2 (22-30) mmol/L Anion Gap 22.0 H (8-16) POC BUN (6-20) mg/dl BUN 11 (6-20) mg/dl Creatinine 0.8 (0.6-1.1) mg/dl POC Creatinine (0.6-1.1) mg/dl GFR Calculation 81 Glucose 127 H (70-105) mg/dL POC Glucose (70-105) mg/dL Calcium 8.8 (8.6-10.4) mg/dl POC WB Ioniz Calcium (1.16-1.32) mmol/L Magnesium (1.6-2.5) mg/dL Total Bilirubin 0.2 (0.0-1.0) mg/dL AST 39 H (0-37) U/l ALT 21 (0-40) U/l Alkaline Phosphatase 151 H (39-117) U/L Total Protein 6.5 (5.9-8.4) gm/dL Albumin 3.2 (3.2-5.2) gm/dL Globulin 3.3 (2.2-3.7) gm/dL Albumin/Globulin Ratio 1.0 (1.0-2.3) Procalcitonin (<0.10) ng/mL Ethyl Alcohol (<0.010) gm/dl 04/24/18 04/24/18 04/24/18 Range/Units 09:59 09:59 10:02 WBC (4.5-11.0) K/mcL RBC (4.00-5.20) M/mcL Hgb (12.0-15.0) g/dL Hct (36.0-48.0) % POC Hct 38.0 (36.0-48.0) % MCV (80.0-100.0) fL MCH (26.0-34.0) pg MCHC (31.0-36.0) g/dL RDW (11.5-14.5) % Plt Count (140-440) K/mcL MPV (7.4-10.4) fL Total Counted Seg Neutrophils % (38-78) % Band Neutrophils % Lymphocytes % (15-49) % Monocytes % (Manual) (1-12) % Eosinophils % (Manual) (0-7) % Reactive Lymphocytes (0-2) % Platelet Estimate (NORMAL) RBC Morphology (NORMAL) Polychromasia (NONE SEEN) Anisocytosis (NONE SEEN) VBG Lactic Acid (0.5-2.2) mmol/L POC Sodium 134 (133-145) mmol/L Sodium (133-145) mmol/L POC Potassium 2.6 L* (3.3-5.1) mmol/L Potassium (3.3-5.1) mmol/L POC Chloride 90 L (96-108) mmol/L Chloride (96-108) mmol/L Carbon Dioxide (22-30) mmol/L POC Total CO2 30 (22-30) mmol/L Anion Gap (8-16) POC BUN 11 (6-20) mg/dl BUN (6-20) mg/dl Creatinine (0.6-1.1) mg/dl POC Creatinine 0.7 (0.6-1.1) mg/dl GFR Calculation Glucose (70-105) mg/dL POC Glucose 125 H (70-105) mg/dL Calcium (8.6-10.4) mg/dl POC WB Ioniz Calcium 0.98 L (1.16-1.32) mmol/L Magnesium (1.6-2.5) mg/dL Total Bilirubin (0.0-1.0) mg/dL AST (0-37) U/l ALT (0-40) U/l Alkaline Phosphatase (39-117) U/L Total Protein (5.9-8.4) gm/dL Albumin (3.2-5.2) gm/dL Globulin (2.2-3.7) gm/dL Albumin/Globulin Ratio (1.0-2.3) Procalcitonin < 0.05 (<0.10) ng/mL Ethyl Alcohol 0.088 H (<0.010) gm/dl 04/24/18 Range/Units 10:06 WBC (4.5-11.0) K/mcL RBC (4.00-5.20) M/mcL Hgb (12.0-15.0) g/dL Hct (36.0-48.0) % POC Hct (36.0-48.0) % MCV (80.0-100.0) fL MCH (26.0-34.0) pg MCHC (31.0-36.0) g/dL RDW (11.5-14.5) % Plt Count (140-440) K/mcL MPV (7.4-10.4) fL Total Counted Seg Neutrophils % (38-78) % Band Neutrophils % Lymphocytes % (15-49) % Monocytes % (Manual) (1-12) % Eosinophils % (Manual) (0-7) % Reactive Lymphocytes (0-2) % Platelet Estimate (NORMAL) RBC Morphology (NORMAL) Polychromasia (NONE SEEN) Anisocytosis (NONE SEEN) VBG Lactic Acid (0.5-2.2) mmol/L POC Sodium (133-145) mmol/L Sodium (133-145) mmol/L POC Potassium (3.3-5.1) mmol/L Potassium (3.3-5.1) mmol/L POC Chloride (96-108) mmol/L Chloride (96-108) mmol/L Carbon Dioxide (22-30) mmol/L POC Total CO2 (22-30) mmol/L Anion Gap (8-16) POC BUN (6-20) mg/dl BUN (6-20) mg/dl Creatinine (0.6-1.1) mg/dl POC Creatinine (0.6-1.1) mg/dl GFR Calculation Glucose (70-105) mg/dL POC Glucose (70-105) mg/dL Calcium (8.6-10.4) mg/dl POC WB Ioniz Calcium (1.16-1.32) mmol/L Magnesium 1.6 (1.6-2.5) mg/dL Total Bilirubin (0.0-1.0) mg/dL AST (0-37) U/l ALT (0-40) U/l Alkaline Phosphatase (39-117) U/L Total Protein (5.9-8.4) gm/dL Albumin (3.2-5.2) gm/dL Globulin (2.2-3.7) gm/dL Albumin/Globulin Ratio (1.0-2.3) Procalcitonin (<0.10) ng/mL Ethyl Alcohol (<0.010) gm/dl - Radiology Data Radiology results reviewed: Yes I reviewed the patient's radiology results. 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
[2018-04-24] MEDS ORDERED: LACTATED RINGERS 1,000 ML IV ONE ×2 (12:33→14:36)
[2018-04-24 13:26] LABS: Amphetamine Screen,Urine NONE DETECTED (NONDETECTED); Benzodiazepines Screen,Urine NONE DETECTED (NONDETECTED); Cocaine Screen,Urine NONE DETECTED (NONDETECTED); Opiate Screen,Urine NONE DETECTED (NONDETECTED); Oxycodone, Urine Screen NONE DETECTED (NONDETECTED)
--- NOTE | 2018-04-24 13:26 | Internal Med History&Physical ---
<Ladarius Melendez - Last Filed: 04/24/18 13:41> Medical - H&P: HPI Patient information: Note initiated : 04/24/18 at 1:22 pm Service Date, if different from initiated Date: [] Patient: Do Cantu a 58 y/o F admitted on for Chafing On Back Of Legs, Smells Of Urine. Chief Complaint: [] Chief complaint: Painful sores on back of legs for the last couple of weeks History of present illness: Ms. Cantu is a 58 year old F 04/24 - presented to the ED with a CC of 10/10 painful sores on the back of both of her legs. Pt states that she has been bed-bound for the last week, only getting up occasionally to use the bathroom. Pt also complains of 10/10 mid- back pain, but she is unsure when that happened. According to ED provider, Pt presented covered in feces and urine. Pt was a bit drowsy when I spoke to her, but she says she can remember everything that happened the last couple of weeks. ED ordered a CXR that showed broken ribs # 8,9 and 10 on the left side. - Constitutional Constitutional: Present: night sweats, weight loss. Absent: fever(s), headache( s) - EENT Nose, mouth and throat: Absent: facial pain, headache(s), neck mass, neck pain - Cardiovascular Cardiovascular: Absent: chest pain, dyspnea, edema, lightheadedness, palpatations, syncope - Respiratory Respiratory: Present: cough, dyspnea on exertion. Absent: excessive phlegm production - Gastrointestinal Gastrointestinal: Present: change in bowel habits (less frequent), diarrhea ( few times in the last week), nausea. Absent: hematochezia, melena, vomiting - Genitourinary Genitourinary: Present: urinary frequency (less frequent). Absent: hematuria - Integumentary Integumentary: Present: dry skin, skin ulcer - Neurological Neurological: Absent: dizziness, headache(s), memory loss, syncope Medical - H&P: PMH Medical history: Unknown skin cancer years ago. Unsure if it was ever excised. Surgical history: Dotson Cyst removal 10 years ago Tubal Ligation Family history: reviewed and not pertinent Smoking status: Current every day smoker (20 year pack history) Have you smoked in the last 12 months: Yes Alcohol use: heavy (drinks 6 beers a day for the last 20 years) Medical - H&P: Meds Home Medications Medication Instructions Recorded Confirmed Type Ferrous Sulfate 325 mg PO TIDCC tablet 01/24/18 04/24/18 Rx Folic Acid 1 mg PO DAILY tablet 01/24/18 04/24/18 Rx Multivit,Ther Iron,Ca,FA & Min 1 tab PO DAILY tablet 01/24/18 04/24/18 Rx [Multivitamin W/Minerals] Thiamine [Vitamin B1] 100 mg PO QDAY #0 tablet 01/24/18 04/24/18 Rx Ondansetron HCl [Zofran ODT] 4 mg SL Q4-6HP PRN #10 tab 02/08/18 04/24/18 Rx Calcium Acetate [Phoslo] 667 mg PO TIDCC 04/24/18 04/24/18 History Furosemide [Lasix] 40 mg PO DAILY 04/24/18 04/24/18 History Lisinopril [Zestril] 2.5 mg PO BID 04/24/18 04/24/18 History Allergies Allergy/AdvReac Type Severity Reaction Status Date / Time clarithromycin [From Biaxin] Allergy Intermediate Vomiting Verified 03/04/18 02: 12 Medical - H&P: Exam - Constitutional Vitals: Temp Pulse Resp BP Pulse Ox 97.0 F 81 24 H 118/68 99 04/24/18 09:41 04/24/18 11:13 04/24/18 12:51 04/24/18 12:51 04/24/18 11:13 General appearance: disheveled - Neck Neck exam: Absent: tenderness (able to touch chin to chest w/o discomfort) - Respiratory Respiratory exam: Present: decreased breath sounds, CTAB. Absent: rales, rhonchi - Cardiovascular Cardiovascular exam: Present: normal rate and rhythm (distant heart sounds). Absent: clicks, rubs - GI/Abdominal GI/Abdominal exam: Present: normal bowel sounds, soft, tenderness (mid epigastric area). Absent: distended, rebound - Extremities Exam Extremities exam: Present: Foot pink and warm. Absent: normal capillary refill (fingernails were pail and difficult to appreciate color), pedal edema, tenderness - Neurological Exam Neurological exam: Present: alert (very tired) - Expanded Skin Exam Type of lesion: Present: abrasion (on back of both legs) Medical - H&P: Reslt - Labs CBC & Chem 7: 04/24/18 09:58 04/24/18 09:59 Labs: Short CBC 04/24/18 Range/Units 09:58 WBC 9.4 (4.5-11.0) K/mcL Hgb 11.6 L (12.0-15.0) g/dL Hct 35.7 L (36.0-48.0) % Plt Count 741 H (140-440) K/mcL BMP 04/24/18 09:59 Sodium 135 Potassium 2.7 L* Chloride 88 L Carbon Dioxide 25 BUN 11 Creatinine 0.8 Glucose 127 H Calcium 8.8 Liver Function 04/24/18 Range/Units 09:59 Total Bilirubin 0.2 (0.0-1.0) mg/dL AST 39 H (0-37) U/l ALT 21 (0-40) U/l Alkaline Phosphatase 151 H (39-117) U/L Albumin 3.2 (3.2-5.2) gm/dL Medical - H&P: A/P (1) Hypokalemia Current visit: Yes Status: Acute Pt currently receiving potassium along with IV fluids. Will recheck labs after (2) Ribs, multiple fractures Current visit: Yes Status: Acute Pt is unsure what caused the rib fractures. Most likely d/t fall or bumping into something at home. Will consider PT/OT to assess stability (3) Pressure ulcer Current visit: Yes Status: Acute Will culture wound and dress/treat as necessary. Consult with social service assistant to determine how safe pt is at home and if she is able to take care of herself. (4) Self-care deficit for bathing and hygiene Current visit: Yes Status: Acute Will consult social service assistant (5) Dehydration Current visit: Yes Status: Acute Will give IV fluids and follow electrolytes. (6) Epigastric abdominal pain Current visit: Yes Status: Acute Will consider ordering lipase and follow up with CT for possible abdominal imaging. Possibly pancreatitis d/t history of alcohol abuse (7) Normocytic anemia Problem details: Concern for GI bleeding Current visit: No Status: Acute Will follow H&H after fluids and have been given <Nakul Alcantara - Last Filed: 04/24/18 14:08> Medical - H&P: HPI Patient information: Note initiated : 04/24/18 at 1:53 pm Service Date, if different from initiated Date: [] Patient: Do Cantu a 58 y/o F admitted on for Chafing On Back Of Legs, Smells Of Urine. Chief Complaint: [] History of present illness: Ms. Cantu is a 58 year old F Medical - H&P: Exam - Constitutional Vitals: Temp Pulse Resp BP Pulse Ox 97.0 F 81 24 H 118/68 99 04/24/18 09:41 04/24/18 11:13 04/24/18 12:51 04/24/18 12:51 04/24/18 11:13 Medical - H&P: Reslt - Labs CBC & Chem 7: 04/24/18 09:58 04/24/18 09:59 Labs: Short CBC 04/24/18 Range/Units 09:58 WBC 9.4 (4.5-11.0) K/mcL Hgb 11.6 L (12.0-15.0) g/dL Hct 35.7 L (36.0-48.0) % Plt Count 741 H (140-440) K/mcL BMP 04/24/18 09:59 Sodium 135 Potassium 2.7 L* Chloride 88 L Carbon Dioxide 25 BUN 11 Creatinine 0.8 Glucose 127 H Calcium 8.8 Liver Function 04/24/18 Range/Units 09:59 Total Bilirubin 0.2 (0.0-1.0) mg/dL AST 39 H (0-37) U/l ALT 21 (0-40) U/l Alkaline Phosphatase 151 H (39-117) U/L Albumin 3.2 (3.2-5.2) gm/dL Urine 04/24/18 Range/Units 12:44 Urine Color Yellow Urine Appearance Clear Urine pH 6.0 (5.0-9.0) Ur Specific [place] 1.012 (1.000-1.035) Urine Protein Neg (NEG) mg/dL Urine Glucose (UA) Negative (NEG) mg/dL Medical - H&P: A/P - Narrative A/P Narrative: 58-year-old female 2 weeks of weakness. had some diarrhea a week ago she was sitting in her diarrhea in the past and urine urine. she fell at some point chest x-ray showed nondisplaced fractures. she has leg pain from ulcers she has been sitting all day every day for 2 weeks. Drinks at least 6 beers throughout the day. She has an epigastric pain that she describes as a ulcer pain, toast makes it feel better spicy foods make it worse. She has a chronic cough. She managed to drive herself into the hospital because the leg pain. Was found to be covered with feces and urine. General: Drowsy Awake, No acute Distress HEENT: EOMI, pupils equal round react light, normocephalic atraumatic, neck supple, dry mucous membranes CV: RRR, No murmurs, normal s1/s2 Pulm: Clear b/l, no wheezing/rhonchi/rales Abd: soft, nontender, +BS x4 Ext: no clubbing/cyanosis/edema, bilateral posterior thighs with open ulcers Neuro: Awake, no focal deficits, moves all extremities Skin: warm/dry A: *Alcohol abuse: *Failure to thrive at home/generalized weakness/deconditioning/debility: *Depletion *Hypokalemia: Secondary to above *Lactic acidosis secondary to above *Anemia chronic: *Abdominal pain: She states that her ulcer disease *Thrombocytosis: Etiology not specific at this time, likely reactive *Fall with rib fracture *Pressure ulcers posterior thighs *Tobacco abuse * P: -IV fluid hydration -CIWA protocol, and as needed benzos, vitamins -Follow-up electrolytes and replete -Follow-up lactic acid after IV fluid hydration -Wound care -PT/OT -case management for placement -PPI, Carafate 24-hour -Check lipase, abdominal x-ray - -ppx: Lovenox No code
[2018-04-24 13:35] LABS: Appearance,Urine CLEAR; Bacteria,Urine FEW /hpf (0); Bilirubin,Urine NEG (NEG); Color,Urine YELLOW; Glucose,Urine (UA) NEGATIVE (NEG); Leukocyte Esterase,Urine NEG /uL (NEG); Mucus,Urine FEW /hpf (0); Protein,Urine NEG (NEG); Specific Gravity,Urine 1.012 (1.000-1.035); Urine Blood NEG mg/dL (<0.03); Urine Hyaline Cast 3 /lpf (0-2); Urine RBC 1 /hpf (0-1); Urine Squamous Epithelial Cell < 1 /hpf (0-4); Urine Transitional Epi Cells < 1 /hpf (0-2); Urine WBC 4 /hpf (0-4); Urobilinogen,Urine NEG (NEG)
[2018-04-24] MEDS ORDERED: PROCHLORPERAZINE 25 MG SUPP.RECT PR PRN (14:36)
[2018-04-24] MEDS ORDERED: IPRATROPIUM/ALBUTEROL 3 ML AMPUL.NEB NEB PRN (14:36)
[2018-04-24] MEDS ORDERED: 0.9 % SODIUM CHLORIDE 10 ML SYRINGE IV SCH (14:36)
[2018-04-24] MEDS ORDERED: LORazepam 2 MG/ML VIAL IV PRN (14:36)
[2018-04-24] MEDS ORDERED: PROMETHAZINE 25 MG TABLET PO PRN (14:36)
[2018-04-24] MEDS ORDERED: cloNIDine HCL 0.1 MG TABLET PO PRN (14:36)
[2018-04-24] MEDS ORDERED: ONDANSETRON 4 MG/2 ML VIAL IV PRN (14:36)
[2018-04-24] MEDS ORDERED: ACETAMINOPHEN 325 MG TABLET PO PRN (14:36)
[2018-04-24] MEDS: 0.9 % SODIUM CHLORIDE 1,000 ML IV SCH (15:06)
[2018-04-24] MEDS: 0.9 % SODIUM CHLORIDE 10 ML SYRINGE IV SCH ×2 (15:06→20:35)
[2018-04-24] MEDS: HYDROcodone/APAP 5/325MG TABLET PO PRN ×3 (15:22→23:00)
[2018-04-24 15:51] LABS: Blood Urea Nitrogen 11 mg/dl (6-20)
[2018-04-24] MEDS ORDERED: CALCIUM GLUCONATE 4.65 MEQ in DEXTROSE 5% IN WATER 50 ML IV ONE (16:50)
[2018-04-24] MEDS ORDERED: POTASSIUM CHLORIDE 20 MEQ TABLET PO ONE (16:50)
--- NOTE | 2018-04-24 17:00 | XRay Report ---
HISTORY: Epigastric pain FINDINGS: The bowel gas pattern is normal. There are vascular calcifications in lower pelvis. Most of these are phleboliths. There are cortical bumps along the lateral border of both left and right femoral head. 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 Moderate disc space narrowing is present at L2-3. IMPRESSION: No acute abnormality Interpreted and Authenticated by: Imer Flores 04/24/18
[2018-04-24] MEDS: SUCRALFATE 1 GM/10 ML ORAL.SUSP PO SCH ×2 (17:05→20:31)
[2018-04-24] MEDS: chlordiazePOXIDE 25 MG CAPSULE PO PRN (19:32)
[2018-04-24] MEDS: POTASSIUM CHLORIDE 20 MEQ PACKET PO SCH (20:34)
[2018-04-24] MEDS ORDERED: FAMOTIDINE 20 MG TABLET PO SCH (21:00)
[2018-04-24] MEDS ORDERED: LORazepam 2 MG/ML VIAL IV ONE (22:34)
[2018-04-24] MEDS ORDERED: LORazepam 2 MG/ML VIAL ONE (22:45)
[2018-04-25] MEDS: HYDROcodone/APAP 5/325MG TABLET PO PRN ×2 (03:50→14:42)
[2018-04-25] MEDS: chlordiazePOXIDE 25 MG CAPSULE PO PRN (03:50)
[2018-04-25 05:33] LABS: Basophils # (Auto) 0 K/mcL (0.0-0.3); Basophils % (Auto) 0.5 % (0.0-2.0); Eosinophils # (Auto) 0.2 K/mcL (0.0-0.7); Eosinophils % (Auto) 1.9 % (0.0-7.0); Granulocytes % (Auto) 79.5 % (38.0-78.0); Lymphocytes # (Auto) 1.3 K/mcL (1.5-4.8); Lymphocytes % (Auto) 14.1 % (15.5-49.0); Mean Cell Volume 96.3 fL (80.0-100.0); Mean Corpuscular Hemoglobin 31.8 pg (26.0-34.0); Monocytes # (Auto) 0.4 K/mcL (0.1-0.9); Platelet Count 536 K/mcL (140-440); RBC 2.49 M/mcL (4.00-5.20); Red Cell Distribution Width 16.5 % (11.5-14.5)
[2018-04-25 06:04] LABS: ALT/SGPT 14 U/l (0-40); Albumin 2.4 gm/dL (3.2-5.2); Albumin/Globulin Ratio 1.2 (1.0-2.3); Alkaline Phosphatase 112 U/L (39-117); Bilirubin,Direct < 0.2 mg/dL (0.0-0.3); Blood Urea Nitrogen 10 mg/dl (6-20); Gamma Glutamyl Transpeptidase 31 U/L (5-36); Uric Acid 2.3 mg/dL (2.5-8.0)
[2018-04-25] MEDS: 0.9 % SODIUM CHLORIDE 10 ML SYRINGE IV SCH ×2 (06:43→12:58)
--- NOTE | 2018-04-25 07:05 | Internal Med Progress Note ---
Medical - PN: Subj Patient information: Note initiated : 04/25/18 at 6:59 am Service Date, if different from initiated Date: [] Patient: Do Cantu 58 y/o F admitted on 04/24/18 for Chafing On Back Of Legs, Smells Of Urine. Chief Complaint: [] Interval history: 58-year-old female 2 weeks of weakness. had some diarrhea a week ago she was sitting in her diarrhea in the past and urine urine. she fell at some point chest x-ray showed nondisplaced fractures. she has leg pain from ulcers she has been sitting all day every day for 2 weeks. Drinks at least 6 beers throughout the day. She has an epigastric pain that she describes as a ulcer pain, toast makes it feel better spicy foods make it worse. She has a chronic cough. She managed to drive herself into the hospital because the leg pain. Was found to be covered with feces and urine. 04/25 States poor sleep, otherwise no overnight events. Denies nausea vomiting abdominal pain chest pain shortness of breath. Denies diarrhea or bleeding. Did get Ativan last evening for [place] protocol. Review of Systems: denies headache/fever/chills/nausea/vomiting/chest or abdominal pain/cough/ dyspnea/diarrhea. Otherwise see above. - Constitutional Vitals: Vital Signs Temp Pulse Resp BP Pulse Ox 98.3 F 92 H 16 134/73 98 04/25/18 00:00 04/25/18 00:00 04/25/18 00:00 04/25/18 00:00 04/25/18 00:00 Period Temp Pulse Resp BP Sys/Manning Pulse Ox Last 24 Hr 97.0 F-98.3 F 81-99 15-28 59-134/30-87 91-99 Intake and Output 04/24/18 04/25/18 04/25/18 21:59 05:59 13:59 Intake Total 1840 / 1840 Output Total 75 / 75 Balance 1765 / 1765 Weight 53.751 kg Intake & Output: Intake & Output 04/24/18 04/25/18 04/25/18 21:59 05:59 13:59 Intake Total 1840 / 1840 Output Total 75 / 75 Balance 1765 / 1765 Weight 53.751 kg Intake: IV 1000 / 1000 Sodium Chloride 0.9% 1,000 ml @ 1000 / 1000 Wide Open IV BOLUS ONE Rx#: [id number] Oral 840 / 840 Output: Urine Catheter Amount 75 / 75 Other: Meal Lunch Percent of Meal Consumed 100% Urine Appearance Clear Uretheral (Alonso) Cloudy Urine Color Bright Yellow Uretheral (Alonso) Straw Urine Odor Normal Exam: General: Drowsy but Awake, No acute Distress, appears quite weak and fatigued HEENT: EOMI, pupils equal round react light, normocephalic atraumatic, neck supple, dry mucous membranes CV: RRR, No murmurs, normal s1/s2 Pulm: Clear b/l, no wheezing/rhonchi/rales Abd: soft, nontender, +BS x4 Ext: no clubbing/cyanosis/edema, bilateral posterior thighs with open ulcers with dressings now in place Neuro: Awake, no focal deficits, moves all extremities. But slow to answer questions although answering appropriately and following commands Skin: warm/dry Medical - PN: Obj Da - Labs CBC & Chem 7: 04/25/18 04:00 04/25/18 04:00 Labs: Abnormal Lab Results 04/25/18 04/25/18 04/24/18 04:00 04:00 14:53 RBC 2.49 L Hgb 7.9 L Hct 24.0 L RDW 16.5 H Plt Count 536 H MPV 6.5 L Gran % 79.5 H Lymph % (Auto) 14.1 L Lymph # (Auto) 1.3 L Seg Neutrophils % Lymphocytes % RBC Morphology Polychromasia Anisocytosis VBG Lactic Acid Sodium 132 L POC Potassium Potassium 3.0 L POC Chloride Chloride Anion Gap Creatinine 0.5 L 0.5 L Glucose 113 H POC Glucose Uric Acid 2.3 L Calcium 7.5 L 7.3 L POC WB Ioniz Calcium Phosphorus 2.5 L AST Alkaline Phosphatase Total Protein 4.4 L Albumin 2.4 L Globulin 2.0 L Urine Bacteria Hyaline Casts Ethyl Alcohol 04/24/18 04/24/18 04/24/18 12:44 10:02 09:59 RBC Hgb Hct RDW Plt Count MPV Gran % Lymph % (Auto) Lymph # (Auto) Seg Neutrophils % Lymphocytes % RBC Morphology Polychromasia Anisocytosis VBG Lactic Acid Sodium POC Potassium 2.6 L* Potassium POC Chloride 90 L Chloride Anion Gap Creatinine Glucose POC Glucose 125 H Uric Acid Calcium POC WB Ioniz Calcium 0.98 L Phosphorus AST Alkaline Phosphatase Total Protein Albumin Globulin Urine Bacteria Few A Hyaline Casts 3 H Ethyl Alcohol 0.088 H 04/24/18 04/24/18 04/24/18 09:59 09:59 09:58 RBC 3.68 L Hgb 11.6 L Hct 35.7 L RDW 16.2 H Plt Count 741 H MPV 6.5 L Gran % Lymph % (Auto) Lymph # (Auto) Seg Neutrophils % 83 H Lymphocytes % 13 L RBC Morphology Abnorm A Polychromasia Few A Anisocytosis 1+ A VBG Lactic Acid 4.7 H* Sodium POC Potassium Potassium 2.7 L* POC Chloride Chloride 88 L Anion Gap 22.0 H Creatinine Glucose 127 H POC Glucose Uric Acid Calcium POC WB Ioniz Calcium Phosphorus AST 39 H Alkaline Phosphatase 151 H Total Protein Albumin Globulin Urine Bacteria Hyaline Casts Ethyl Alcohol Meds: Medications Acetaminophen (Tylenol) 650 mg PO Q6HP PRN PRN Reason: PAIN/FEVER > 101 Hydrocodone Bitart/Acetaminophen (Hodge 5/325mg) 1 tab PO Q4HP PRN PRN Reason: PAIN LEVEL 3-6 Last Admin: 04/25/18 03:50 Dose: 1 tab Albuterol/Ipratropium (Duoneb) 3 ml NEB Q4HRT PRN PRN Reason: Abdominal Distention Chlordiazepoxide HCl (Librium) 50 mg PO Q4HP PRN PRN Reason: Alcohol Withdrawal Last Admin: 04/25/18 03:50 Dose: 50 mg Clonidine HCl (Catapres) 0.1 mg PO Q4HP PRN PRN Reason: Alcohol Withdrawal Enoxaparin Sodium (Lovenox) 30 mg SQ DAILY [facility] Famotidine (Pepcid) 20 mg PO BID [facility] Last Admin: 04/24/18 20:31 Dose: 20 mg Sodium Chloride (Sodium Chloride 0.9%) 1,000 mls @ 70 mls/hr IV .[id number] [facility] Stop: 04/25/18 19:10 Last Admin: 04/24/18 15:06 Dose: 70 mls/hr Thiamine HCl 100 mg/ Sodium (Chloride) 51 mls @ 50 mls/hr IV DAILY [facility] Iron Carb/Multivit/Norm[place]/Folic Acid (Multivitamin W/Minerals) 1 tab PO DAILY [facility] Lorazepam (Ativan) 0 mg IV Q4HP PRN; Protocol PRN Reason: Alcohol Withdrawal Last Admin: 04/24/18 20:30 Dose: 1 mg Morphine Sulfate (Morphine) 1 - 3 mg IV Q3HP PRN PRN Reason: PAIN LEVEL > 6 Ondansetron HCl (Zofran) 4 mg IV Q4HP PRN PRN Reason: Nausea And Vomiting Potassium Chloride (Klor-Con) 20 meq PO BIDCC [facility] Stop: 04/26/18 20:59 Last Admin: 04/24/18 20:34 Dose: 20 meq Prochlorperazine Maleate (Compazine) 12.5 mg [place] Q12HP PRN PRN Reason: Nausea And Vomiting Promethazine HCl (Phenergan) 12.5 mg PO Q6HP PRN PRN Reason: Nausea And Vomiting Sodium Chloride (Saline Flush) 10 ml IV Q8 [facility] Last Admin: 04/25/18 06:43 Dose: Not Given Sucralfate (Carafate) 1 gm PO ACHS [facility] Stop: 04/25/18 11:31 Last Admin: 04/24/18 20:31 Dose: 1 gm Medical - PN: A/P - Time Spent With Patient Total time spent is greater than 50% in coordination of care (as documented) at patient's floor/unit and/or counseling patient: - Narrative A/P Narrative: A: *Alcohol abuse: *Failure to thrive at home/generalized weakness/deconditioning/debility: *Volume Depletion: improved *Hypokalemia: Secondary to above, resolved *Lactic acidosis secondary to above, resolved quickly with IVF's *Anemia acute on chronic: GI bleed + dilution -no gross bleeding on rectal exam, but FOBT positive *Abdominal pain: She states it is her ulcer disease, axr unremarkable, BUN ok. No pain today *Thrombocytosis: Etiology not specifically identified at this time, reactive, Improved. *Hyponatremia, chronic: *Fall with rib fracture *Pressure ulcers posterior thighs *Tobacco abuse P: -IV fluid hydration -CIWA protocol, prn benzos, vitamins -Follow-up electrolytes and replete -GI consult -ppi gtt -monitor H&H -Wound care consult -PT/OT -case management for placement -PPI, Caraf -ppx: lovenox (d/c)/ppi
[2018-04-25] MEDS: 0.9 % SODIUM CHLORIDE 1,000 ML IV SCH (07:55)
[2018-04-25] MEDS: PANTOPRAZOLE 40 MG TABLET PO SCH ×2 (08:02→09:24)
[2018-04-25] MEDS: SUCRALFATE 1 GM/10 ML ORAL.SUSP PO SCH ×2 (08:02→09:21)
[2018-04-25] MEDS ORDERED: THIAMINE 100 MG in 0.9 % SODIUM CHLORIDE 50 ML IV SCH (09:00)
[2018-04-25] MEDS ORDERED: MULTIVIT,THER IRON,CA,FA & MIN 1 TABLET PO SCH (09:00)
[2018-04-25] MEDS ORDERED: ENOXAPARIN 30 MG/0.3 ML SYRINGE SQ SCH (09:00)
[2018-04-25] MEDS ORDERED: 0.9 % SODIUM CHLORIDE 250 ML IV SCH ×2 (09:30→16:47)
[2018-04-25] MEDS ORDERED: PANTOPRAZOLE 40 MG VIAL IV ONE (09:45)
[2018-04-25] MEDS ORDERED: PANTOPRAZOLE 80 MG in 0.9 % SODIUM CHLORIDE 100 ML IV SCH (10:00)
[2018-04-25] MEDS: SODIUM CHLORIDE 1 GM TABLET PO ONE ×2 (10:11→10:19)
[2018-04-25] MEDS: POTASSIUM CHLORIDE 20 MEQ PACKET PO SCH ×2 (11:38→18:38)
--- NOTE | 2018-04-25 13:41 | General Surgery Consult Note ---
History of Present Illness Patient information: Note initiated : 04/25/18 at 1:40 pm Service Date, if different from initiated Date: [] Patient: Do Cantu 58 y/o F admitted on 04/24/18 for Hypokalemia, Alcohol Abuse, Rib Fractures. Chief Complaint: [] Consult date: 04/25/18 Reason for consult: other (anemia and guaiac positive stools) Requesting physician: Nakul Larson History of present illness: 58-year-old female with history of chronic alcoholism,, recurrent electrolyte dysfunction, and recurrent anemia. Patient was admitted on yesterday for complications of chronic alcoholism. Her initial hemoglobin was 11.6 but was 7.9 on recheck this morning. Her stool guaiacs are positive for blood. The patient is disoriented and cannot appropriately answer questions as to whether or not she had hematemesis or hematochezia. On the stool specimen obtained by Dr. LARSON there was no overt blood.. Patient has been continuously drinking alcohol and was found in an inebriated dysfunctional state. I am seeing the patient to make arrangements for upper endoscopy. Review of Systems ROS unobtainable: due to mental status Past History Past medical history: Congestive heart failure Gastroesophageal reflux disease History of renal failure Malnutrition with failure to thrive Alcohol abuse Anemia of chronic disease Anxiety with depression Alcoholic hepatitis. History of multiple rib fractures History of alcohol-induced coagulopathy Past surgical history: Left knee surgery Tubal ligation Past family history: History of colon cancer Past social history: Everyday smoker Everyday drinker Lives alone No history of drug use Medications and Allergies Home Medications Medication Instructions Recorded Confirmed Type Ferrous Sulfate 325 mg PO TIDCC tablet 01/24/18 04/24/18 Rx Folic Acid 1 mg PO DAILY tablet 01/24/18 04/24/18 Rx Multivit,Ther Iron,Ca,FA & Min 1 tab PO DAILY tablet 01/24/18 04/24/18 Rx [Multivitamin W/Minerals] Thiamine [Vitamin B1] 100 mg PO QDAY #0 tablet 01/24/18 04/24/18 Rx Ondansetron HCl [Zofran ODT] 4 mg SL Q4-6HP PRN #10 tab 02/08/18 04/24/18 Rx Calcium Acetate [Phoslo] 667 mg PO TIDCC 04/24/18 04/24/18 History Furosemide [Lasix] 40 mg PO DAILY 04/24/18 04/24/18 History Lisinopril [Zestril] 2.5 mg PO BID 04/24/18 04/24/18 History Allergies Allergy/AdvReac Type Severity Reaction Status Date / Time clarithromycin [From Biaxin] AdvReac Mild Vomiting Verified 04/24/18 16:16 Exam Temp Pulse Resp BP Pulse Ox 98.5 F 83 18 96/63 96 04/25/18 12:00 04/25/18 12:00 04/25/18 12:00 04/25/18 12:00 04/25/18 12:00 - General physical appearance well developed, well nourished, moderate distress, moderate pain, chronically ill, other (patient is very somnolent and barely responds to questioning) - Eyes PERRL, normal ocular movement - ENT normal pinna, normal nares, normal mucosa, no hearing loss, no congestion, decreased hearing, poor alf, other (very poor dentition with poor oral hygiene; unable to open mouth due to pain in her jaw) - Head Head exam IM: Present: atraumatic, normocephalic - Neck no masses, no bruits, trachea midline, no lymphadectomy, no venous distension - Cardiovascular Cardiovascular exam IM: Present: normal rate and rhythm, RRR, +S1, +S2. Absent : JVD, tachycardia - Respiratory normal expansion, normal respiratory effort, clear to auscultation - Abdomen Abdomen: Present: soft, tender (tenderness to palpation in epigastrium and mid abdomen), bowel sounds Hernia: Present: none - Genitourinary Present: normal external genitalia - Integumentary Present: no rash, no growths, no abnormal pigmentation, other (deep abrasions and grade 2 pressure ulcerations posterior legs bilaterally) - Neurologic Present: disoriented, confused, memory loss - Psychiatric Present: other (mental status cannot be assessed due to degree of disorientation secondary to medication and alcohol withdrawal) Results - Labs 04/25/18 10:40 04/25/18 04:00 Abnormal lab results 04/24/18 04/25/18 04/25/18 Range/Units 14:53 04:00 04:00 RBC 2.49 L (4.00-5.20) M/mcL Hgb 7.9 L (12.0-15.0) g/dL Hct 24.0 L (36.0-48.0) % RDW 16.5 H (11.5-14.5) % Plt Count 536 H (140-440) K/mcL MPV 6.5 L (7.4-10.4) fL Gran % 79.5 H (38.0-78.0) % Lymph % (Auto) 14.1 L (15.5-49.0) % Lymph # (Auto) 1.3 L (1.5-4.8) K/mcL Sodium 132 L (133-145) mmol/L Potassium 3.0 L (3.3-5.1) mmol/L Creatinine 0.5 L 0.5 L (0.6-1.1) mg/dl Glucose 113 H (70-105) mg/dL Uric Acid 2.3 L (2.5-8.0) mg/dL Calcium 7.3 L 7.5 L (8.6-10.4) mg/dl Phosphorus 2.5 L (2.7-4.5) mg/dL Total Protein 4.4 L (5.9-8.4) gm/dL Albumin 2.4 L (3.2-5.2) gm/dL Globulin 2.0 L (2.2-3.7) gm/dL 04/25/18 Range/Units 10:40 RBC (4.00-5.20) M/mcL Hgb 8.7 L (12.0-15.0) g/dL Hct 27.2 L (36.0-48.0) % RDW (11.5-14.5) % Plt Count (140-440) K/mcL MPV (7.4-10.4) fL Gran % (38.0-78.0) % Lymph % (Auto) (15.5-49.0) % Lymph # (Auto) (1.5-4.8) K/mcL Sodium (133-145) mmol/L Potassium (3.3-5.1) mmol/L Creatinine (0.6-1.1) mg/dl Glucose (70-105) mg/dL Uric Acid (2.5-8.0) mg/dL Calcium (8.6-10.4) mg/dl Phosphorus (2.7-4.5) mg/dL Total Protein (5.9-8.4) gm/dL Albumin (3.2-5.2) gm/dL Globulin (2.2-3.7) gm/dL Diabetes panel 04/24/18 04/25/18 Range/Units 14:53 04:00 Sodium 135 132 L (133-145) mmol/L Potassium 3.0 L 4.2 (3.3-5.1) mmol/L Chloride 97 101 (96-108) mmol/L Carbon Dioxide 24 23 (22-30) mmol/L BUN 11 10 (6-20) mg/dl Creatinine 0.5 L 0.5 L (0.6-1.1) mg/dl Glucose 113 H 82 (70-105) mg/dL Calcium 7.3 L 7.5 L (8.6-10.4) mg/dl AST 20 (0-37) U/l ALT 14 (0-40) U/l Alkaline Phosphatase 112 (39-117) U/L Total Protein 4.4 L (5.9-8.4) gm/dL Albumin 2.4 L (3.2-5.2) gm/dL Triglycerides 53 (<150) mg/dl Calcium panel 04/24/18 04/24/18 04/25/18 Range/Units 09:59 14:53 04:00 Calcium 7.3 L 7.5 L (8.6-10.4) mg/dl Phosphorus 4.0 2.5 L (2.7-4.5) mg/dL Albumin 2.4 L (3.2-5.2) gm/dL Pituitary panel 04/24/18 04/25/18 Range/Units 14:53 04:00 Sodium 135 132 L (133-145) mmol/L Potassium 3.0 L 4.2 (3.3-5.1) mmol/L Chloride 97 101 (96-108) mmol/L Carbon Dioxide 24 23 (22-30) mmol/L BUN 11 10 (6-20) mg/dl Creatinine 0.5 L 0.5 L (0.6-1.1) mg/dl Glucose 113 H 82 (70-105) mg/dL Calcium 7.3 L 7.5 L (8.6-10.4) mg/dl Adrenal panel 04/24/18 04/25/18 Range/Units 14:53 04:00 Sodium 135 132 L (133-145) mmol/L Potassium 3.0 L 4.2 (3.3-5.1) mmol/L Chloride 97 101 (96-108) mmol/L Carbon Dioxide 24 23 (22-30) mmol/L BUN 11 10 (6-20) mg/dl Creatinine 0.5 L 0.5 L (0.6-1.1) mg/dl Glucose 113 H 82 (70-105) mg/dL Calcium 7.3 L 7.5 L (8.6-10.4) mg/dl Total Bilirubin 0.2 (0.0-1.0) mg/dL AST 20 (0-37) U/l ALT 14 (0-40) U/l Alkaline Phosphatase 112 (39-117) U/L Total Protein 4.4 L (5.9-8.4) gm/dL Albumin 2.4 L (3.2-5.2) gm/dL All other labs normal. Assessment and Plan (1) GI (gastrointestinal hemorrhage) Schedule for upper endoscopy on Check PT, INR Status: Acute Qualifiers: Gastritis type: alcoholic (2) Chronic blood loss anemia Status: Chronic (3) Alcohol withdrawal syndrome Status: Chronic Qualifiers: Complication of substance-induced condition: with perceptual disturbance Qualified Code(s): F10.232 - Alcohol dependence with withdrawal with perceptual disturbance (4) Pressure ulcer Status: Acute (5) Ribs, multiple fractures Status: Chronic (6) Alcohol abuse Status: Chronic
[2018-04-25] MEDS ORDERED: HYDROcodone/APAP 5/325MG TABLET PO PRN (16:47)
[2018-04-25] MEDS ORDERED: ONDANSETRON 4 MG/2 ML VIAL IV PRN (16:47)
[2018-04-25] MEDS ORDERED: PROCHLORPERAZINE 25 MG SUPP.RECT PR PRN (16:47)
[2018-04-25] MEDS ORDERED: 0.9 % SODIUM CHLORIDE 1,000 ML IV SCH (16:47)
[2018-04-25] MEDS ORDERED: chlordiazePOXIDE 25 MG CAPSULE PO PRN (16:47)
[2018-04-25] MEDS ORDERED: cloNIDine HCL 0.1 MG TABLET PO PRN (16:47)
[2018-04-25] MEDS ORDERED: PROMETHAZINE 25 MG TABLET PO PRN (16:47)
[2018-04-25] MEDS ORDERED: ACETAMINOPHEN 325 MG TABLET PO PRN (16:47)
[2018-04-25] MEDS ORDERED: IPRATROPIUM/ALBUTEROL 3 ML AMPUL.NEB NEB PRN (16:47)
[2018-04-25] MEDS: LORazepam 2 MG/ML VIAL IV PRN (19:54)
[2018-04-25] MEDS: PANTOPRAZOLE 80 MG in 0.9 % SODIUM CHLORIDE 100 ML IV SCH (19:55)
[2018-04-26] MEDS: 0.9 % SODIUM CHLORIDE 1,000 ML IV SCH ×2 (00:19)
[2018-04-26] MEDS: 0.9 % SODIUM CHLORIDE 10 ML SYRINGE IV SCH ×4 (00:21→22:00)
[2018-04-26 05:11] LABS: Basophils # (Auto) 0.1 K/mcL (0.0-0.3); Basophils % (Auto) 0.6 % (0.0-2.0); Eosinophils # (Auto) 0.2 K/mcL (0.0-0.7); Eosinophils % (Auto) 1.9 % (0.0-7.0); Granulocytes % (Auto) 82.9 % (38.0-78.0); Lymphocytes # (Auto) 1.1 K/mcL (1.5-4.8); Lymphocytes % (Auto) 11.5 % (15.5-49.0); Mean Cell Volume 97.4 fL (80.0-100.0); Mean Corpuscular HGB Conc 32.8 g/dL (31.0-36.0); Mean Corpuscular Hemoglobin 31.9 pg (26.0-34.0); Monocytes # (Auto) 0.3 K/mcL (0.1-0.9); Monocytes % (Auto) 3.1 % (1.0-12.0); Platelet Count 525 K/mcL (140-440); RBC 2.59 M/mcL (4.00-5.20); Red Cell Distribution Width 16.1 % (11.5-14.5)
[2018-04-26] MEDS: PANTOPRAZOLE 80 MG in 0.9 % SODIUM CHLORIDE 100 ML IV SCH (05:29)
[2018-04-26 05:41] LABS: ALT/SGPT 12 U/l (0-40); Albumin 2.4 gm/dL (3.2-5.2); Albumin/Globulin Ratio 1.2 (1.0-2.3); Alkaline Phosphatase 105 U/L (39-117); Bilirubin,Direct < 0.2 mg/dL (0.0-0.3); Blood Urea Nitrogen 6 mg/dl (6-20); Gamma Glutamyl Transpeptidase 24 U/L (5-36); Uric Acid 2.6 mg/dL (2.5-8.0)
[2018-04-26] MEDS ORDERED: MAGNESIUM SULFATE 2 GM/50 ML BAG IV ONE (06:24)
[2018-04-26] MEDS ORDERED: PANTOPRAZOLE 40 MG VIAL IV SCH (07:30)
[2018-04-26] MEDS: POTASSIUM CHLORIDE 20 MEQ PACKET PO SCH (07:50)
[2018-04-26] MEDS ORDERED: THIAMINE 100 MG in 0.9 % SODIUM CHLORIDE 50 ML IV SCH (09:00)
[2018-04-26] MEDS ORDERED: MULTIVIT,THER IRON,CA,FA & MIN 1 TABLET PO SCH (09:00)
[2018-04-26] MEDS: LORazepam 2 MG/ML VIAL IV PRN ×2 (10:39→19:00)
[2018-04-26] MEDS ORDERED: POTASSIUM PHOSPHATE 40 MEQ in DEXTROSE 5% IN WATER 500 ML IV ONE (10:55)
[2018-04-26] MEDS ORDERED: 0.9 % SODIUM CHLORIDE 250 ML IV SCH ×2 (11:00→15:18)
[2018-04-26] MEDS ORDERED: DEXTROSE 5%-1/2NS W/20MEQ KCL 1,000 ML IV SCH ×2 (11:45→15:18)
--- NOTE | 2018-04-26 11:50 | XRay Report ---
HISTORY: Aspiration pneumonia FINDINGS: There is a moderate-sized densely consolidating infiltrate at the right lung base with milder generalized alveolar infiltrates throughout the remainder of both lungs. These are new findings since 04/24/18. There may be small bilateral pleural effusions. The heart size is normal. The pulmonary vessels are obscured by the pulmonary infiltrates. Patient has several old left-sided rib fractures which have healed. There are recent ununited fractures laterally in the right lower thorax. No pneumothorax is present. IMPRESSION: Bilateral pulmonary infiltrates which may be a combination of pneumonia, atelectasis and pulmonary vascular congestion Interpreted and Authenticated by: Imer Flores 04/26/18
[2018-04-26] MEDS ORDERED: PIPERACILLIN SODIUM/TAZOBACTAM 3.375 GM in DEXTROSE 5% IN WATER 50 ML IV SCH (12:00)
--- NOTE | 2018-04-26 12:18 | General Surgery Progress Note ---
Subjective Narrative: Note initiated : 04/26/18 at 12:16 pm Service Date, if different from initiated Date: [] Patient: Do Cantu 58 y/o F admitted on 04/24/18 for Hypokalemia, Alcohol Abuse, Rib Fractures. Chief Complaint: [Patient is stable but she is more delirious today. She is not aware of her surroundings. Her hemoglobin has drifted down from 11.6-8.3. No melena has been noted. She will be scheduled for upper endoscopy in the morning.] Objective Temp Pulse Resp BP Pulse Ox 96.7 F L 95 H 12 123/76 91 04/26/18 11:35 04/26/18 11:35 04/26/18 11:35 04/26/18 11:35 04/26/18 11:35 - Additional Data Intake & Output - Last 24 hours: Intake & Output 04/24/18 04/25/18 04/26/18 04/27/18 05:59 05:59 05:59 05:59 Intake Total 4100 / 4100 1467 / 1467 Output Total 625 / 625 2049 / 2049 Balance 3475 / 3475 -583 / -583 Weight 118 lb 8 oz 118 lb 8 oz - General physical appearance chronically ill - Eyes PERRL, normal ocular movement - ENT normal pinna, normal nares, normal mucosa, no hearing loss, no congestion - Neck no masses, no bruits, trachea midline, no venous distension - Respiratory normal expansion, normal respiratory effort, clear to auscultation - Cardiovascular Cardiovascular exam: Present: normal rate and rhythm, RRR, +S1, +S2. Absent: JVD, tachycardia - Abdomen non tender, bowel sounds (present), surgical scars (none), masses (none) - Integumentary other (abrasions on posterior legs are stable) - Neurologic disoriented, combative, confused, memory loss - Labs 04/26/18 04:06 04/26/18 04:06 Diabetes panel 04/26/18 Range/Units 04:06 Sodium 137 (133-145) mmol/L Potassium 3.7 (3.3-5.1) mmol/L Chloride 105 (96-108) mmol/L Carbon Dioxide 23 (22-30) mmol/L BUN 6 (6-20) mg/dl Creatinine 0.5 L (0.6-1.1) mg/dl Glucose 83 (70-105) mg/dL Calcium 7.6 L (8.6-10.4) mg/dl AST 18 (0-37) U/l ALT 12 (0-40) U/l Alkaline Phosphatase 105 (39-117) U/L Total Protein 4.4 L (5.9-8.4) gm/dL Albumin 2.4 L (3.2-5.2) gm/dL Triglycerides 66 (<150) mg/dl Calcium panel 04/26/18 Range/Units 04:06 Calcium 7.6 L (8.6-10.4) mg/dl Phosphorus 2.6 L (2.7-4.5) mg/dL Albumin 2.4 L (3.2-5.2) gm/dL Pituitary panel 04/26/18 Range/Units 04:06 Sodium 137 (133-145) mmol/L Potassium 3.7 (3.3-5.1) mmol/L Chloride 105 (96-108) mmol/L Carbon Dioxide 23 (22-30) mmol/L BUN 6 (6-20) mg/dl Creatinine 0.5 L (0.6-1.1) mg/dl Glucose 83 (70-105) mg/dL Calcium 7.6 L (8.6-10.4) mg/dl Adrenal panel 04/26/18 Range/Units 04:06 Sodium 137 (133-145) mmol/L Potassium 3.7 (3.3-5.1) mmol/L Chloride 105 (96-108) mmol/L Carbon Dioxide 23 (22-30) mmol/L BUN 6 (6-20) mg/dl Creatinine 0.5 L (0.6-1.1) mg/dl Glucose 83 (70-105) mg/dL Calcium 7.6 L (8.6-10.4) mg/dl Total Bilirubin 0.2 (0.0-1.0) mg/dL AST 18 (0-37) U/l ALT 12 (0-40) U/l Alkaline Phosphatase 105 (39-117) U/L Total Protein 4.4 L (5.9-8.4) gm/dL Albumin 2.4 L (3.2-5.2) gm/dL Assessment and Plan (1) GI (gastrointestinal hemorrhage) Status: Acute Assessment and plan: Patient is typed and crossed and will get 1 unit of blood today. She is scheduled for upper endoscopy tomorrow. Current Visit: Yes (2) Chronic blood loss anemia Status: Chronic Assessment and plan: Hemoglobin has drifted down from 11.6-8.3. She will get transfusion as needed Current Visit: Yes (3) Alcohol withdrawal syndrome Status: Chronic Assessment and plan: She is presently having delirium and is undergoing CIWA protocol Current Visit: Yes (4) Pressure ulcer Status: Acute Current Visit: Yes (5) Ribs, multiple fractures Status: Chronic Current Visit: Yes (6) Alcohol abuse Status: Chronic Current Visit: No - Time Spent With Patient Total time spent is greater than 50% in coordination of care (as documented) at patient's floor/unit and/or counseling patient:
[2018-04-26] MEDS ORDERED: LACTATED RINGERS 1,000 ML IV ONE ×3 (14:28→15:18)
[2018-04-26 14:49] LABS: Basophils # (Auto) 0 K/mcL (0.0-0.3); Basophils % (Auto) 0.1 % (0.0-2.0); Eosinophils # (Auto) 0 K/mcL (0.0-0.7); Eosinophils % (Auto) 0.3 % (0.0-7.0); Granulocytes % (Auto) 88.1 % (38.0-78.0); Lymphocytes # (Auto) 1.1 K/mcL (1.5-4.8); Mean Cell Volume 96.3 fL (80.0-100.0); Mean Corpuscular HGB Conc 32.3 g/dL (31.0-36.0); Mean Corpuscular Hemoglobin 31.1 pg (26.0-34.0); Monocytes # (Auto) 0.3 K/mcL (0.1-0.9); Monocytes % (Auto) 2.5 % (1.0-12.0); Platelet Count 484 K/mcL (140-440); Red Cell Distribution Width 16.6 % (11.5-14.5)
--- NOTE | 2018-04-26 15:06 | XRay Report ---
HISTORY: Respiratory distress, shortness of breath, code white FINDINGS: There are moderate generalized alveolar infiltrates in both lungs. There is dense consolidation in the right lung base. The infiltrates in the mid and upper lung blackman have become worse since the earlier study done on 11:32. Current study was done at 14:43. There may be small bilateral pleural effusions. The heart size is within normal limits. No pneumothorax is present and there is no mediastinal shift. IMPRESSION: Worsening infiltrates in both lungs Interpreted and Authenticated by: Imer Flores 04/26/18
[2018-04-26 15:09] LABS: ALT/SGPT 13 U/l (0-40); Albumin 2.2 gm/dL (3.2-5.2); Albumin/Globulin Ratio 0.9 (1.0-2.3); Alkaline Phosphatase 104 U/L (39-117); Bilirubin,Direct < 0.2 mg/dL (0.0-0.3); Blood Urea Nitrogen 9 mg/dl (6-20); Gamma Glutamyl Transpeptidase 25 U/L (5-36); Uric Acid 2.6 mg/dL (2.5-8.0)
[2018-04-26] MEDS ORDERED: ACETAMINOPHEN 325 MG TABLET PO PRN (15:18)
[2018-04-26] MEDS ORDERED: ONDANSETRON 4 MG/2 ML VIAL IV PRN (15:18)
[2018-04-26] MEDS ORDERED: cloNIDine HCL 0.1 MG TABLET PO PRN (15:18)
[2018-04-26] MEDS ORDERED: IPRATROPIUM/ALBUTEROL 3 ML AMPUL.NEB NEB PRN (15:18)
[2018-04-26] MEDS ORDERED: PROMETHAZINE 25 MG TABLET PO PRN (15:18)
[2018-04-26] MEDS ORDERED: PROCHLORPERAZINE 25 MG SUPP.RECT PR PRN (15:18)
--- NOTE | 2018-04-26 16:15 | Internal Med Progress Note ---
Medical - PN: Subj Patient information: Note initiated : 04/26/18 at 4:12 pm Service Date, if different from initiated Date: [] Patient: Do Cantu 58 y/o F admitted on 04/24/18 for Hypokalemia, Alcohol Abuse, Rib Fractures. Chief Complaint: [] Interval history: 58-year-old female 2 weeks of weakness. had some diarrhea a week ago she was sitting in her diarrhea in the past and urine urine. she fell at some point chest x-ray showed nondisplaced fractures. she has leg pain from ulcers she has been sitting all day every day for 2 weeks. Drinks at least 6 beers throughout the day. She has an epigastric pain that she describes as a ulcer pain, toast makes it feel better spicy foods make it worse. She has a chronic cough. She managed to drive herself into the hospital because the leg pain. Was found to be covered with feces and urine. 04/25 States poor sleep, otherwise no overnight events. Denies nausea vomiting abdominal pain chest pain shortness of breath. Denies diarrhea or bleeding. Did get Ativan last evening for CIWA protocol. 04/26 Patient seen and examined, overnight events noted. Patient had been transferred to medical floor yesterday, there was no need for cardiac monitoring. This morning on my evaluation patient noted that she still had some pain but otherwise had no complaints. On examination she had some crackles on the right side of the chest, chest x-ray was ordered which showed she had new onset pneumonia bilaterally right more than the left. She was only on 2 L of oxygen and labs were stable. Blood cultures pro-calcitonin ordered, patient was started on Zosyn. Later in the morning early afternoon the patient decompensated became acutely hypoxic and cyanotic. Requiring 15 L of oxygen to maintain oxygen saturation more than 90. Chest x-ray showed worsening infiltrates, she was tachycardic. Arterial blood gas was drawn which showed a pH of 7.43 PCO2 32 PO2 64 and lactic acid of 2.3 this was done on nonrebreather. The patient was transferred to the ICU. Saline bolus was given, IV antibiotics and blood cultures already drawn. A new set of labs ordered. Pertinent ROS: Denies headache, dizziness present chest pain, no palpitations Denies cough or shortness of breath Denies abdominal pain, nausea or vomiting. Additional PMFSH (Level 3 Only): Medical History (Last Updated 02/09/18 @ 20:06 by Angela Mora MD) Alcohol abuse (Acute) Alcoholic hepatitis without ascites (Acute) Frequent falls (Acute) Diastolic dysfunction (Acute) GERD (gastroesophageal reflux disease) (Acute) Hypokalemia (Acute) Hypomagnesemia (Acute) Hyponatremia (Acute) Malnutrition (Acute) Normocytic anemia (Acute) Osteoarthritis (Acute) Peptic ulcer disease (Acute) Pneumonia (Acute) Ribs, multiple fractures (Acute) - Constitutional Vitals: Vital Signs Temp Pulse Resp BP Pulse Ox 101.3 F H 110 H 32 H 126/70 100 04/26/18 14:52 04/26/18 14:52 04/26/18 14:52 04/26/18 14:52 04/26/18 14:52 Period Temp Pulse Resp BP Sys/Manning Pulse Ox Last 24 Hr 96.7 F-101.3 F 83-110 12-32 96-127/42-82 68-100 Intake and Output 04/26/18 04/26/18 04/26/18 05:59 13:59 21:59 Intake Total 196 / 196 89 / 89 50 / 50 Output Total 1100 / 1100 265 / 265 Balance -904 / -904 / 89 -215 / -215 Intake & Output: Intake & Output 04/26/18 04/26/18 04/26/18 05:59 13:59 21:59 Intake Total 196 / 196 89 / 89 50 / 50 Output Total 1100 / 1100 265 / 265 Balance -904 / -904 / 89 -215 / -215 Intake: IV 96 / 96 / 89 50 / 50 Protonix 80 mg In Sodium 96 / 96 39 / 39 Chloride 0.9% 100 ml @ 8 MG/HR 10 mls/hr IV Q10H [facility] Rx#: [id number] Zosyn 3.375 gm In Dextrose 5% 50 / 50 in Water 50 ml @ 100 mls/hr IV Q6H [facility] Rx#:[id number] Oral 100 / 100 0 / 0 Output: Urine Catheter Amount 1100 / 1100 265 / 265 Other: Percent of Meal Consumed 0% Urine Appearance Clear Clear Clear Uretheral (Alonso) Clear Urine Color Light Maggi Pale Uretheral (Alonso) Pale Urine Odor Normal Exam: Constitutional; Afebrile, cooperative, awake, not in distress.(in am, later in afternoon was in resp disterss) Eyes- No icterus, , No periorbital swelling Ears- Ext ear normal, hearing normal to conversation. Neck- Midline trachea, supple Respiratory system: Air Entry decreased right base, crackles, savana right > left ( bases) no wheezing heard. CVS- Rate rhythm regular, S1,S2 heard, no gallop, no rub. Abdomen- Soft nontender abdomen, no organomegaly, no tenderness, no guarding or rigidity, [employer]- AOOx2, moving all extremities, no gross focal deficit noted. Medical - PN: Obj Da - Labs CBC & Chem 7: 04/26/18 14:28 04/26/18 14:28 Labs: Abnormal Lab Results 04/26/18 04/26/18 04/26/18 14:28 14:28 04:06 WBC 11.7 H RBC 2.70 L Hgb 8.4 L Hct 26.0 L RDW 16.6 H Plt Count 484 H MPV 6.4 L Gran % 88.1 H Lymph % (Auto) 9.0 L Gran # 10.3 H Lymph # (Auto) 1.1 L Seg Neutrophils % Lymphocytes % RBC Morphology Polychromasia Anisocytosis VBG Lactic Acid Sodium POC Potassium Potassium POC Chloride Chloride Carbon Dioxide 20 L Anion Gap Creatinine 0.5 L Glucose 243 H POC Glucose Uric Acid Calcium 7.7 L 7.6 L POC WB Ioniz Calcium Phosphorus 2.6 L Magnesium 1.4 L AST Alkaline Phosphatase Total Protein 4.6 L 4.4 L Albumin 2.2 L 2.4 L Globulin 2.0 L Albumin/Globulin Ratio 0.9 L Urine Bacteria Hyaline Casts Ethyl Alcohol 04/26/18 04/25/18 04/25/18 04:06 10:40 04:00 WBC RBC 2.59 L Hgb 8.3 L 8.7 L Hct 25.2 L 27.2 L RDW 16.1 H Plt Count 525 H MPV 6.5 L Gran % 82.9 H Lymph % (Auto) 11.5 L Gran # 8.3 H Lymph # (Auto) 1.1 L Seg Neutrophils % Lymphocytes % RBC Morphology Polychromasia Anisocytosis VBG Lactic Acid Sodium 132 L POC Potassium Potassium POC Chloride Chloride Carbon Dioxide Anion Gap Creatinine 0.5 L Glucose POC Glucose Uric Acid 2.3 L Calcium 7.5 L POC WB Ioniz Calcium Phosphorus 2.5 L Magnesium AST Alkaline Phosphatase Total Protein 4.4 L Albumin 2.4 L Globulin 2.0 L Albumin/Globulin Ratio Urine Bacteria Hyaline Casts Ethyl Alcohol 04/25/18 04/24/18 04/24/18 04:00 14:53 12:44 WBC RBC 2.49 L Hgb 7.9 L Hct 24.0 L RDW 16.5 H Plt Count 536 H MPV 6.5 L Gran % 79.5 H Lymph % (Auto) 14.1 L Gran # Lymph # (Auto) 1.3 L Seg Neutrophils % Lymphocytes % RBC Morphology Polychromasia Anisocytosis VBG Lactic Acid Sodium POC Potassium Potassium 3.0 L POC Chloride Chloride Carbon Dioxide Anion Gap Creatinine 0.5 L Glucose 113 H POC Glucose Uric Acid Calcium 7.3 L POC WB Ioniz Calcium Phosphorus Magnesium AST Alkaline Phosphatase Total Protein Albumin Globulin Albumin/Globulin Ratio Urine Bacteria Few A Hyaline Casts 3 H Ethyl Alcohol 04/24/18 04/24/18 04/24/18 10:02 09:59 09:59 WBC RBC Hgb Hct RDW Plt Count MPV Gran % Lymph % (Auto) Gran # Lymph # (Auto) Seg Neutrophils % Lymphocytes % RBC Morphology Polychromasia Anisocytosis VBG Lactic Acid 4.7 H* Sodium POC Potassium 2.6 L* Potassium POC Chloride 90 L Chloride Carbon Dioxide Anion Gap Creatinine Glucose POC Glucose 125 H Uric Acid Calcium POC WB Ioniz Calcium 0.98 L Phosphorus Magnesium AST Alkaline Phosphatase Total Protein Albumin Globulin Albumin/Globulin Ratio Urine Bacteria Hyaline Casts Ethyl Alcohol 0.088 H 04/24/18 04/24/18 09:59 09:58 WBC RBC 3.68 L Hgb 11.6 L Hct 35.7 L RDW 16.2 H Plt Count 741 H MPV 6.5 L Gran % Lymph % (Auto) Gran # Lymph # (Auto) Seg Neutrophils % 83 H Lymphocytes % 13 L RBC Morphology Abnorm A Polychromasia Few A Anisocytosis 1+ A VBG Lactic Acid Sodium POC Potassium Potassium 2.7 L* POC Chloride Chloride 88 L Carbon Dioxide Anion Gap 22.0 H Creatinine Glucose 127 H POC Glucose Uric Acid Calcium POC WB Ioniz Calcium Phosphorus Magnesium AST 39 H Alkaline Phosphatase 151 H Total Protein Albumin Globulin Albumin/Globulin Ratio Urine Bacteria Hyaline Casts Ethyl Alcohol Meds: Medications Acetaminophen (Tylenol) 650 mg PO Q6HP PRN PRN Reason: PAIN/FEVER > 101 Hydrocodone Bitart/Acetaminophen ([place] 5/325mg) 1 tab PO Q4HP PRN PRN Reason: PAIN LEVEL 3-6 Albuterol/Ipratropium (Duoneb) 3 ml NEB Q4HRT PRN PRN Reason: Abdominal Distention Clonidine HCl (Catapres) 0.1 mg PO Q4HP PRN PRN Reason: Alcohol Withdrawal Potassium Chloride/Dextrose/Sod Cl (Dextrose 5%-1/2ns W/20meq Kcl) 1,000 mls @ 84 mls/hr IV .[id number] [facility] Sodium Chloride (Sodium Chloride 0.9%) 250 mls @ 20 mls/hr IV .[id number] [facility] Stop: 04/26/18 23:29 Piperacillin Sod/Tazobactam (Sod 3.375 gm/ Dextrose) 50 mls @ 100 mls/hr IV Q6H [facility] Iron Carb/Multivit/Mccormick/Folic Acid (Multivitamin W/Minerals) 1 tab PO DAILY [facility] Lorazepam (Ativan) 0 mg IV Q4HP PRN; Protocol PRN Reason: Alcohol Withdrawal Morphine Sulfate (Morphine) 1 - 3 mg IV Q3HP PRN PRN Reason: PAIN LEVEL > 6 Ondansetron HCl (Zofran) 4 mg IV Q4HP PRN PRN Reason: Nausea And Vomiting Pantoprazole Sodium (Protonix) 40 mg IV BIDAC [facility] Potassium Chloride (Klor-Con) 20 meq PO BIDCC [facility] Stop: 04/26/18 20:59 Prochlorperazine Maleate (Compazine) 12.5 mg NE Q12HP PRN PRN Reason: Nausea And Vomiting Promethazine HCl (Phenergan) 12.5 mg PO Q6HP PRN PRN Reason: Nausea And Vomiting Sodium Chloride (Saline Flush) 10 ml IV Q8 [facility] Thiamine HCl (Vitamin B1) 100 mg PO DAILY [facility] Medical - PN: A/P - Time Spent With Patient Total time spent is greater than 50% in coordination of care (as documented) at patient's floor/unit and/or counseling patient: - Narrative A/P Narrative: A: Acute hypoxic Respiratory Failure- Due to pna, oxygen supplementation, Sepsis with Lactic acidosis- IV fluids bolus x 3 L, monitor. trend lactate. Aspirational Pneumonia, - IV Zosyn, blood cultures sent, procalcitonin is neg? X ray suggestive of pna. Anemia- GI bleed - h/h stable, surgery following, they ordered 1 unit prbc today. IV ppi 40 bid Alcohol Abuse- on CIWA, prn Ativan, on mv and thiamine. Hypokalemia/Hypomagnesemia - replace, Chest pain from Rib fracture - pain control Hyponatremia- resolved - Pressure Ulcer- wound care - Tobacco abuse. - education. DVT hep sq Full code Spent more than 45 rendering critical care to this patient,
[2018-04-26] MEDS: PANTOPRAZOLE 40 MG VIAL IV SCH (17:24)
[2018-04-26] MEDS: PIPERACILLIN SODIUM/TAZOBACTAM 3.375 GM in DEXTROSE 5% IN WATER 50 ML IV SCH (17:24)
[2018-04-26] MEDS ORDERED: POTASSIUM CHLORIDE 20 MEQ PACKET PO SCH (17:30)
[2018-04-26] MEDS: HYDROcodone/APAP 5/325MG TABLET PO PRN ×2 (19:00→21:59)
[2018-04-27] MEDS: PIPERACILLIN SODIUM/TAZOBACTAM 3.375 GM in DEXTROSE 5% IN WATER 50 ML IV SCH ×5 (00:14→23:51)
[2018-04-27] MEDS ORDERED: FUROSEMIDE 20 MG/2 ML VIAL IV ONE ×2 (01:53→02:03)
[2018-04-27] MEDS: LORazepam 2 MG/ML VIAL IV PRN (02:04)
[2018-04-27 05:41] LABS: Basophils # (Auto) 0.1 K/mcL (0.0-0.3); Basophils % (Auto) 0.5 % (0.0-2.0); Eosinophils # (Auto) 0.1 K/mcL (0.0-0.7); Eosinophils % (Auto) 1.1 % (0.0-7.0); Granulocytes % (Auto) 87.9 % (38.0-78.0); Lymphocytes # (Auto) 0.9 K/mcL (1.5-4.8); Lymphocytes % (Auto) 6.9 % (15.5-49.0); Mean Cell Volume 93.7 fL (80.0-100.0); Mean Corpuscular HGB Conc 33.5 g/dL (31.0-36.0); Mean Corpuscular Hemoglobin 31.4 pg (26.0-34.0); Monocytes # (Auto) 0.5 K/mcL (0.1-0.9); Monocytes % (Auto) 3.6 % (1.0-12.0); Platelet Count 419 K/mcL (140-440); RBC 3.57 M/mcL (4.00-5.20); Red Cell Distribution Width 17.2 % (11.5-14.5)
[2018-04-27 06:16] LABS: ALT/SGPT 13 U/l (0-40); Albumin 2.2 gm/dL (3.2-5.2); Albumin/Globulin Ratio 0.8 (1.0-2.3); Alkaline Phosphatase 119 U/L (39-117); Bilirubin,Direct < 0.2 mg/dL (0.0-0.3); Blood Urea Nitrogen 6 mg/dl (6-20); Gamma Glutamyl Transpeptidase 26 U/L (5-36); Uric Acid 1.8 mg/dL (2.5-8.0)
[2018-04-27] MEDS: 0.9 % SODIUM CHLORIDE 10 ML SYRINGE IV SCH ×3 (06:38→23:52)
[2018-04-27] MEDS ORDERED: MAGNESIUM SULFATE 32.48 MEQ in DEXTROSE 5% IN WATER 100 ML IV ONE (07:16)
[2018-04-27] MEDS ORDERED: MAGNESIUM SULFATE IN WATER 4 GM/100 ML BAG IV SCH (07:30)
[2018-04-27] MEDS ORDERED: POTASSIUM CHLORIDE 40 MEQ in DEXTROSE 5% IN WATER 500 ML IV ONE (08:00)
--- NOTE | 2018-04-27 08:15 | XRay Report ---
HISTORY: Follow-up pulmonary infiltrates rib fractures hypoechoic and alcohol abuse FINDINGS: There are severe generalized alveolar opacities throughout both lungs. The greatest consolidation is around the radha and medially in both lower lobes. Small bilateral pleural effusions are present. The heart is mildly enlarged and has increased in size. The infiltrates have become significantly worse. The pleural effusions have not changed significantly. No pneumothorax has developed following the recent right-sided rib fractures. IMPRESSION: Worsening infiltrates throughout both lungs. This could be due to ARDS, pulmonary edema or severe pneumonia. Interpreted and Authenticated by: Imer Flores 04/27/18
[2018-04-27] MEDS: PANTOPRAZOLE 40 MG VIAL IV SCH ×2 (08:38→16:05)
[2018-04-27] MEDS ORDERED: THIAMINE 100 MG TABLET PO SCH (09:00)
--- NOTE | 2018-04-27 13:57 | Internal Med Progress Note ---
Medical - PN: Subj Patient information: Note initiated : 04/27/18 at 1:53 pm Service Date, if different from initiated Date: [] Patient: Do Cantu 58 y/o F admitted on 04/24/18 for Hypokalemia, Alcohol Abuse, Rib Fractures. Chief Complaint: [] Interval history: 58-year-old female 2 weeks of weakness. had some diarrhea a week ago she was sitting in her diarrhea in the past and urine urine. she fell at some point chest x-ray showed nondisplaced fractures. she has leg pain from ulcers she has been sitting all day every day for 2 weeks. Drinks at least 6 beers throughout the day. She has an epigastric pain that she describes as a ulcer pain, toast makes it feel better spicy foods make it worse. She has a chronic cough. She managed to drive herself into the hospital because the leg pain. Was found to be covered with feces and urine. 04/25 States poor sleep, otherwise no overnight events. Denies nausea vomiting abdominal pain chest pain shortness of breath. Denies diarrhea or bleeding. Did get Ativan last evening for CIWA protocol. 04/26 Patient seen and examined, overnight events noted. Patient had been transferred to medical floor yesterday, there was no need for cardiac monitoring. This morning on my evaluation patient noted that she still had some pain but otherwise had no complaints. On examination she had some crackles on the right side of the chest, chest x-ray was ordered which showed she had new onset pneumonia bilaterally right more than the left. She was only on 2 L of oxygen and labs were stable. Blood cultures pro-calcitonin ordered, patient was started on Zosyn. Later in the morning early afternoon the patient decompensated became acutely hypoxic and cyanotic. Requiring 15 L of oxygen to maintain oxygen saturation more than 90. Chest x-ray showed worsening infiltrates, she was tachycardic. Arterial blood gas was drawn which showed a pH of 7.43 PCO2 32 PO2 64 and lactic acid of 2.3 this was done on nonrebreather. The patient was transferred to the ICU. Saline bolus was given, IV antibiotics and blood cultures already drawn. A new set of labs ordered. 04/27 Patient seen and examined, no acute overnight events, had increased oxygen needs. Maintenance fluid stopped and 20 mg of Lasix given. Patient responded well. Chest x-ray this morning shows worsening infiltrates bilaterally. Clinically patient appears more stable. Remains tachycardic tachypneic. Patient still quite uncomfortable in the morning was quite drowsy however later was alert oriented x2 complained about soreness all over speaks very softly. Pertinent ROS: Denies headache, dizziness present chest pain at rib fractures, cough and shortness of breath present. Denies abdominal pain, nausea or vomiting. - Constitutional Vitals: Vital Signs Temp Pulse Resp BP Pulse Ox 99.1 F H 107 H 26 H 106/92 91 04/27/18 12:01 04/27/18 12:49 04/27/18 12:49 04/27/18 12:01 04/27/18 12:49 Period Temp Pulse Resp BP Sys/Manning Pulse Ox Last 24 Hr 98.1 F-101.3 F 25-114 16-33 84-134/48-103 68-100 Intake and Output 04/26/18 04/27/18 04/27/18 21:59 05:59 13:59 Intake Total 05198.0909 / 01365.0909 50 / 50 Output Total 2215 / 2215 3050 / 3050 Balance 8451.0909 / 8451.0909 -3000 / -3000 Weight 124 lb 12.8 oz 124 lb 12.8 oz Patient Weight 04/28/18 05:59 Weight 124 lb 12.8 oz Intake & Output: Intake & Output 04/26/18 04/27/18 04/27/18 21:59 05:59 13:59 Intake Total 92280.0909 / 31094.0909 50 / 50 Output Total 2215 / 2215 3050 / 3050 Balance 8451.0909 / 8451.0909 -3000 / -3000 Weight 124 lb 12.8 oz 124 lb 12.8 [place]: [place] [address].0909 / 50218.0909 50 / 50 Dextrose 5%-1/2Ns W/20Meq KCl 1 188 / 188 ,000 ml @ 84 mls/hr IV .[id number] [facility] Rx#:[id number] Zosyn 3.375 gm In Dextrose 5% 100 / 100 50 / 50 in Water 50 ml @ 100 mls/hr IV Q6H [facility] Rx#:[id number] Potassium Phosphate 40 Meq In 407 / 407 Dextrose 5% in Water 500 ml @ 127.273 mls/hr IV ONCE ONE Rx#: [id number] Oral 0 / 0 Blood Product 373 / 373 Output: Urine Catheter Amount 2215 / 2215 3050 / 3050 Other: Urine Appearance Clear Uretheral (Alonso) Clear Clear Urine Color Uretheral (Alonso) Pale Pale Exam: Constitutional; Afebrile, cooperative, alert, not in distress. tachypneic Eyes- No icterus, , No periorbital swelling Ears- Ext ear normal, hearing normal to conversation. Neck- Midline trachea, supple Respiratory system: Air Entry equal on both sides, bibasilar crackles, rt > left , bronchial breath sounds right base. . CVS- Rate rhythm regular, S1,S2 heard, no gallop, no rub. Abdomen- Soft nontender abdomen, no organomegaly, no tenderness, no guarding or rigidity, EDITOR MAP- AOOx2, moving all extremities, no gross focal deficit noted. Medical - PN: Obj Da - Labs CBC & Chem 7: 04/27/18 04:00 04/27/18 04:00 Labs: Abnormal Lab Results 04/27/18 04/27/18 04/26/18 04:00 04:00 14:28 WBC 13.5 H RBC 3.57 L Hgb 11.2 L Hct 33.5 L RDW 17.2 H Plt Count MPV 7.0 L Gran % 87.9 H Lymph % (Auto) 6.9 L Gran # 11.9 H Lymph # (Auto) 0.9 L Sodium Potassium Carbon Dioxide 20 L Creatinine Glucose 243 H Uric Acid 1.8 L Calcium 7.8 L 7.7 L Phosphorus Magnesium 1.3 L Alkaline Phosphatase 119 H Lactate Dehydrogenase 312 H Total Protein 5.0 L 4.6 L Albumin 2.2 L 2.2 L Globulin Albumin/Globulin Ratio 0.8 L 0.9 L 04/26/18 04/26/18 04/26/18 14:28 04:06 04:06 WBC 11.7 H RBC 2.70 L 2.59 L Hgb 8.4 L 8.3 L Hct 26.0 L 25.2 L RDW 16.6 H 16.1 H Plt Count 484 H 525 H MPV 6.4 L 6.5 L Gran % 88.1 H 82.9 H Lymph % (Auto) 9.0 L 11.5 L Gran # 10.3 H 8.3 H Lymph # (Auto) 1.1 L 1.1 L Sodium Potassium Carbon Dioxide Creatinine 0.5 L Glucose Uric Acid Calcium 7.6 L Phosphorus 2.6 L Magnesium 1.4 L Alkaline Phosphatase Lactate Dehydrogenase Total Protein 4.4 L Albumin 2.4 L Globulin 2.0 L Albumin/Globulin Ratio 04/25/18 04/25/18 04/25/18 10:40 04:00 04:00 WBC RBC 2.49 L Hgb 8.7 L 7.9 L Hct 27.2 L 24.0 L RDW 16.5 H Plt Count 536 H MPV 6.5 L Gran % 79.5 H Lymph % (Auto) 14.1 L Gran # Lymph # (Auto) 1.3 L Sodium 132 L Potassium Carbon Dioxide Creatinine 0.5 L Glucose Uric Acid 2.3 L Calcium 7.5 L Phosphorus 2.5 L Magnesium Alkaline Phosphatase Lactate Dehydrogenase Total Protein 4.4 L Albumin 2.4 L Globulin 2.0 L Albumin/Globulin Ratio 04/24/18 14:53 WBC RBC Hgb Hct RDW Plt Count MPV Gran % Lymph % (Auto) Gran # Lymph # (Auto) Sodium Potassium 3.0 L Carbon Dioxide Creatinine 0.5 L Glucose 113 H Uric Acid Calcium 7.3 L Phosphorus Magnesium Alkaline Phosphatase Lactate Dehydrogenase Total Protein Albumin Globulin Albumin/Globulin Ratio Meds: Medications Acetaminophen (Tylenol) 650 mg PO Q6HP PRN PRN Reason: PAIN/FEVER > 101 Hydrocodone Bitart/Acetaminophen ([place] 5/325mg) 1 tab PO Q4HP PRN PRN Reason: PAIN LEVEL 3-6 Last Admin: 04/26/18 21:59 Dose: 1 tab Albuterol/Ipratropium (Duoneb) 3 ml NEB Q4HRT PRN PRN Reason: Abdominal Distention Last Admin: 04/27/18 01:24 Dose: 3 ml Clonidine HCl (Catapres) 0.1 mg PO Q4HP PRN PRN Reason: Alcohol Withdrawal Piperacillin Sod/Tazobactam (Sod 3.375 gm/ Dextrose) 50 mls @ 100 mls/hr IV Q6H [facility] Last Admin: 04/27/18 06:38 Dose: 100 mls/hr Iron Carb/Multivit/[place]/Folic Acid (Multivitamin W/Minerals) 1 tab PO DAILY [facility] Lorazepam (Ativan) 0 mg IV Q4HP PRN; Protocol PRN Reason: Alcohol Withdrawal Last Admin: 04/27/18 02:04 Dose: 1 mg Morphine Sulfate (Morphine) 1 - 3 mg IV Q3HP PRN PRN Reason: PAIN LEVEL > 6 Last Admin: 04/27/18 02:17 Dose: 2 mg Ondansetron HCl (Zofran) 4 mg IV Q4HP PRN PRN Reason: Nausea And Vomiting Pantoprazole Sodium (Protonix) 40 mg IV BIDAC [facility] Last Admin: 04/27/18 08:38 Dose: 40 mg Prochlorperazine Maleate (Compazine) 12.5 mg [place] Q12HP PRN PRN Reason: Nausea And Vomiting Promethazine HCl (Phenergan) 12.5 mg PO Q6HP PRN PRN Reason: Nausea And Vomiting Sodium Chloride (Saline Flush) 10 ml IV Q8 [facility] Last Admin: 04/27/18 06:38 Dose: 10 ml Thiamine HCl (Vitamin B1) 100 mg PO DAILY [facility] Medical - PN: A/P - Time Spent With Patient Total time spent is greater than 50% in coordination of care (as documented) at patient's floor/unit and/or counseling patient: - Narrative A/P Narrative: A: Acute hypoxic Respiratory Failure- Due to pna, oxygen supplementation, stable oxygen needs for now. Monitor closely. IV lasix given with good response this AM Sepsis with Lactic acidosis- IV fluids given, lactate is normal. Patient clinically improving, bp stable, good urine output. Aspirational Pneumonia, - IV Zosyn, blood cultures sent, procalcitonin is neg? X ray suggestive of pna X ray shows worsening today, but clinically pt is stable. Anemia- GI bleed - h/h stable, surgery following, they ordered 1 unit prbc today. IV ppi 40 bid EGD was planned for today, is on hold, will plan for tomorrow. Alcohol Abuse- on CIWA, prn Ativan, on mv and thiamine. Hypokalemia/Hypomagnesemia - replace aggressively. Chest pain from Rib fracture - pain control Hyponatremia- resolved - Pressure Ulcer- wound care - Tobacco abuse. - education. DVT hep sq Full code Spent more than 45 rendering critical care to this patient,
[2018-04-27] MEDS: THIAMINE 100 MG TABLET PO SCH (14:54)
[2018-04-27] MEDS: MULTIVIT,THER IRON,CA,FA & MIN 1 TABLET PO SCH (15:58)
[2018-04-27] MEDS: ACETAMINOPHEN 650 MG/65 ML BOTTLE IV PRN (16:17)
[2018-04-28] MEDS: PIPERACILLIN SODIUM/TAZOBACTAM 3.375 GM in DEXTROSE 5% IN WATER 50 ML IV SCH ×4 (05:32→23:36)
[2018-04-28] MEDS: 0.9 % SODIUM CHLORIDE 10 ML SYRINGE IV SCH ×7 (05:33→21:18)
[2018-04-28 06:14] LABS: Basophils # (Auto) 0 K/mcL (0.0-0.3); Basophils % (Auto) 0.2 % (0.0-2.0); Eosinophils # (Auto) 0.2 K/mcL (0.0-0.7); Eosinophils % (Auto) 1.8 % (0.0-7.0); Lymphocytes % (Auto) 7.6 % (15.5-49.0); Mean Cell Volume 95.4 fL (80.0-100.0); Mean Corpuscular HGB Conc 33.1 g/dL (31.0-36.0); Mean Corpuscular Hemoglobin 31.6 pg (26.0-34.0); Monocytes # (Auto) 0.3 K/mcL (0.1-0.9); Monocytes % (Auto) 2.4 % (1.0-12.0); Platelet Count 357 K/mcL (140-440); Red Cell Distribution Width 16.4 % (11.5-14.5)
[2018-04-28 06:55] LABS: ALT/SGPT 10 U/l (0-40); Albumin 1.9 gm/dL (3.2-5.2); Albumin/Globulin Ratio 0.7 (1.0-2.3); Alkaline Phosphatase 160 U/L (39-117); Bilirubin,Direct < 0.2 mg/dL (0.0-0.3); Blood Urea Nitrogen 8 mg/dl (6-20); Gamma Glutamyl Transpeptidase 25 U/L (5-36); Uric Acid 1.6 mg/dL (2.5-8.0)
[2018-04-28] MEDS: PANTOPRAZOLE 40 MG VIAL IV SCH ×2 (07:02→17:43)
[2018-04-28] MEDS: ACETAMINOPHEN 650 MG/65 ML BOTTLE IV PRN (07:03)
[2018-04-28] MEDS ORDERED: POTASSIUM CHLORIDE 40 MEQ in DEXTROSE 5% IN WATER 500 ML IV ONE (07:13)
[2018-04-28] MEDS ORDERED: MAGNESIUM SULFATE IN WATER 4 GM/100 ML BAG IV ONE (07:30)
[2018-04-28] MEDS: MULTIVIT,THER IRON,CA,FA & MIN 1 TABLET PO SCH (08:11)
[2018-04-28] MEDS: THIAMINE 100 MG TABLET PO SCH (08:12)
--- NOTE | 2018-04-28 09:15 | Internal Med Progress Note ---
Medical - PN: Subj Patient information: Note initiated : 04/28/18 at 9:12 am Service Date, if different from initiated Date: [] Patient: Do Cantu 58 y/o F admitted on 04/24/18 for Hypokalemia, Alcohol Abuse, Rib Fractures. Chief Complaint: [] Interval history: 58-year-old female 2 weeks of weakness. had some diarrhea a week ago she was sitting in her diarrhea in the past and urine urine. she fell at some point chest x-ray showed nondisplaced fractures. she has leg pain from ulcers she has been sitting all day every day for 2 weeks. Drinks at least 6 beers throughout the day. She has an epigastric pain that she describes as a ulcer pain, toast makes it feel better spicy foods make it worse. She has a chronic cough. She managed to drive herself into the hospital because the leg pain. Was found to be covered with feces and urine. 04/25 States poor sleep, otherwise no overnight events. Denies nausea vomiting abdominal pain chest pain shortness of breath. Denies diarrhea or bleeding. Did get Ativan last evening for CIWA protocol. 04/26 Patient seen and examined, overnight events noted. Patient had been transferred to medical floor yesterday, there was no need for cardiac monitoring. This morning on my evaluation patient noted that she still had some pain but otherwise had no complaints. On examination she had some crackles on the right side of the chest, chest x-ray was ordered which showed she had new onset pneumonia bilaterally right more than the left. She was only on 2 L of oxygen and labs were stable. Blood cultures pro-calcitonin ordered, patient was started on Zosyn. Later in the morning early afternoon the patient decompensated became acutely hypoxic and cyanotic. Requiring 15 L of oxygen to maintain oxygen saturation more than 90. Chest x-ray showed worsening infiltrates, she was tachycardic. Arterial blood gas was drawn which showed a pH of 7.43 PCO2 32 PO2 64 and lactic acid of 2.3 this was done on nonrebreather. The patient was transferred to the ICU. Saline bolus was given, IV antibiotics and blood cultures already drawn. A new set of labs ordered. 04/27 Patient seen and examined, no acute overnight events, had increased oxygen needs. Maintenance fluid stopped and 20 mg of Lasix given. Patient responded well. Chest x-ray this morning shows worsening infiltrates bilaterally. Clinically patient appears more stable. Remains tachycardic tachypneic. Patient still quite uncomfortable in the morning was quite drowsy however later was alert oriented x2 complained about soreness all over speaks very softly. 04/28 Patient seen examined, no acute overnight issues, on 3-4 L oxygen via nasal canula, still quite weak, notes some epigastric, ruq pain, lft stable, elevated lft, previous USG/ Abdomen CT notes reviewed, Dr Juarez is following the patient , plan for EGD today if possible. Xfer to tele status. Pertinent ROS: Denies headache, dizziness present chest pain with inspirations, palpitations Denies cough or shortness of breath epigastric/ RUQ abdominal pain, no nausea or vomiting. - Constitutional Vitals: Vital Signs Temp Pulse Resp BP Pulse Ox 98.8 F 89 22 97/67 93 04/28/18 08:00 04/28/18 08:00 04/28/18 08:00 04/28/18 08:00 04/28/18 08:00 Period Temp Pulse Resp BP Sys/Manning Pulse Ox Last 24 Hr 98.3 F-101 F 87-113 16-36 83-120/51-92 88-97 Intake and Output 04/27/18 04/28/18 04/28/18 21:59 05:59 13:59 Intake Total 265 / 265 50 / 50 115 / 115 Output Total 1900 / 1900 800 / 800 140 / 140 Balance -1635 / -1635 -750 / -750 -25 / -25 Weight 118 lb 12.8 oz Intake & Output: Intake & Output 04/27/18 04/28/18 04/28/18 21:59 05:59 13:59 Intake Total 265 / 265 50 / 50 115 / 115 Output Total 1900 / 1900 800 / 800 140 / 140 Balance -1635 / -1635 -750 / -750 -25 / -25 Weight 118 lb 12.8 oz Intake: IV 165 / 165 50 / 50 115 / 115 Zosyn 3.375 gm In Dextrose 5% 100 / 100 50 / 50 50 / 50 in Water 50 ml @ 100 mls/hr IV Q6H [facility] Rx#:[id number] Oral 100 / 100 Output: Urine Catheter Amount 1900 / 1900 140 / 140 Void Amount 800 / 800 Other: Urine Appearance Uretheral (Alonso) Clear Urine Color Bright Yellow Uretheral (Alonso) Pale Urine Odor Normal Exam: Constitutional; Afebrile, cooperative, alert, not in distress. frail lady Eyes- No icterus, , No periorbital swelling Ears- Ext ear normal, hearing normal to conversation. Neck- Midline trachea, supple Respiratory system: Air Entry equal on both sides, bronchial breath sounds, right base, bi basilar crackles CVS- Rate rhythm regular, S1,S2 heard, no gallop, no rub. 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 Medical - PN: Obj Da - Labs CBC & Chem 7: 04/28/18 03:40 04/28/18 03:40 Labs: Abnormal Lab Results 04/28/18 04/28/18 04/27/18 03:40 03:40 04:00 WBC 13.4 H RBC 3.30 L Hgb 10.4 L Hct 31.5 L RDW 16.4 H Plt Count MPV 7.1 L Gran % 88.0 H Lymph % (Auto) 7.6 L Gran # 11.8 H Lymph # (Auto) 1.0 L Carbon Dioxide Creatinine Glucose Uric Acid 1.6 L 1.8 L Calcium 7.8 L 7.8 L Phosphorus 4.6 H Magnesium 1.5 L 1.3 L Alkaline Phosphatase 160 H 119 H Lactate Dehydrogenase 356 H 312 H Total Protein 4.7 L 5.0 L Albumin 1.9 L 2.2 L Globulin Albumin/Globulin Ratio 0.7 L 0.8 L 04/27/18 04/26/18 04/26/18 04:00 14:28 14:28 WBC 13.5 H 11.7 H RBC 3.57 L 2.70 L Hgb 11.2 L 8.4 L Hct 33.5 L 26.0 L RDW 17.2 H 16.6 H Plt Count 484 H MPV 7.0 L 6.4 L Gran % 87.9 H 88.1 H Lymph % (Auto) 6.9 L 9.0 L Gran # 11.9 H 10.3 H Lymph # (Auto) 0.9 L 1.1 L Carbon Dioxide 20 L Creatinine Glucose 243 H Uric Acid Calcium 7.7 L Phosphorus Magnesium Alkaline Phosphatase Lactate Dehydrogenase Total Protein 4.6 L Albumin 2.2 L Globulin Albumin/Globulin Ratio 0.9 L 04/26/18 04/26/18 04/25/18 04:06 04:06 10:40 WBC RBC 2.59 L Hgb 8.3 L 8.7 L Hct 25.2 L 27.2 L RDW 16.1 H Plt Count 525 H MPV 6.5 L Gran % 82.9 H Lymph % (Auto) 11.5 L Gran # 8.3 H Lymph # (Auto) 1.1 L Carbon Dioxide Creatinine 0.5 L Glucose Uric Acid Calcium 7.6 L Phosphorus 2.6 L Magnesium 1.4 L Alkaline Phosphatase Lactate Dehydrogenase Total Protein 4.4 L Albumin 2.4 L Globulin 2.0 L Albumin/Globulin Ratio Meds: Medications Acetaminophen (Tylenol) 650 mg PO Q6HP PRN PRN Reason: PAIN/FEVER > 101 Hydrocodone Bitart/Acetaminophen ([place] 5/325mg) 1 tab PO Q4HP PRN PRN Reason: PAIN LEVEL 3-6 Last Admin: 04/26/18 21:59 Dose: 1 tab Albuterol/Ipratropium (Duoneb) 3 ml NEB Q4HRT PRN PRN Reason: Abdominal Distention Last Admin: 04/27/18 01:24 Dose: 3 ml Clonidine HCl (Catapres) 0.1 mg PO Q4HP PRN PRN Reason: Alcohol Withdrawal Piperacillin Sod/Tazobactam (Sod 3.375 gm/ Dextrose) 50 mls @ 100 mls/hr IV Q6H [facility] Last Infusion: 04/28/18 06:02 Dose: Infused Acetaminophen (Ofirmev) 650 mg in 65 mls @ 130 mls/hr IV Q6HP PRN PRN Reason: PAIN/FEVER > 101 Last Infusion: 04/28/18 07:33 Dose: Infused Potassium Chloride 40 meq/ (Dextrose) 520 mls @ 130 mls/hr IV ONCE ONE Stop: 04/28/18 11:12 Magnesium Sulfate (Magnesium Sulf 4gm Bag) 4 gm in 100 mls @ 50 mls/hr IV ONCE ONE Stop: 04/28/18 09:29 Last Admin: 04/28/18 08:05 Dose: 50 mls/hr Iron Carb/Multivit/[place]/Folic Acid (Multivitamin W/Minerals) 1 tab PO DAILY [facility] Last Admin: 04/28/18 08:11 Dose: 1 tab Lorazepam (Ativan) 0 mg IV Q4HP PRN; Protocol PRN Reason: Alcohol Withdrawal Last Admin: 04/27/18 02:04 Dose: 1 mg Morphine Sulfate (Morphine) 1 - 3 mg IV Q3HP PRN PRN Reason: PAIN LEVEL > 6 Last Admin: 04/28/18 07:07 Dose: 2 mg Ondansetron HCl (Zofran) 4 mg IV Q4HP PRN PRN Reason: Nausea And Vomiting Pantoprazole Sodium (Protonix) 40 mg IV BIDAC [facility] Last Admin: 04/28/18 07:02 Dose: 40 mg Prochlorperazine Maleate (Compazine) 12.5 mg SD Q12HP PRN PRN Reason: Nausea And Vomiting Promethazine HCl (Phenergan) 12.5 mg PO Q6HP PRN PRN Reason: Nausea And Vomiting Sodium Chloride (Saline Flush) 10 ml IV Q8 [facility] Last Admin: 04/28/18 08:05 Dose: 10 ml Thiamine HCl (Vitamin B1) 100 mg PO DAILY [facility] Last Admin: 04/28/18 08:12 Dose: 100 mg Medical - PN: A/P - Time Spent With Patient Total time spent is greater than 50% in coordination of care (as documented) at patient's floor/unit and/or counseling patient: - Narrative A/P Narrative: A: Acute hypoxic Respiratory Failure- Due to pna, oxygen supplementation, stable oxygen needs for now at 3-4 L. continue to monitor, wean off oxygen as tolerated Sepsis with Lactic acidosis- IV fluids given, lactate is normal. Patient clinically improving, bp stable, good urine output. Aspirational Pneumonia, - ON IV zosyn, cultures negative so far, clinically improving. Anemia- GI bleed - h/h stable,IV PPI, plan for EGD today? Dr Juarez to reassess pt . Epigastric pain from gastritis? h/o gall bladder distention in the past, will reveiw with Dr Juarez Alcohol Abuse- on CIWA, prn Ativan, on mv and thiamine. CIWA score are trending down, not requiring much ativan now. Hypokalemia/Hypomagnesemia - replace aggressively. Chest pain from Rib fracture - pain control Hyponatremia- resolved - Pressure Ulcer- wound care - Tobacco abuse. - education. DVT hep sq Full code ,
[2018-04-28] MEDS ORDERED: ACETAMINOPHEN 650 MG/65 ML BOTTLE IV PRN (10:06)
[2018-04-28] MEDS ORDERED: cloNIDine HCL 0.1 MG TABLET PO PRN (10:06)
[2018-04-28] MEDS ORDERED: LORazepam 2 MG/ML VIAL IV PRN (10:06)
[2018-04-28] MEDS ORDERED: PROMETHAZINE 25 MG TABLET PO PRN (10:06)
[2018-04-28] MEDS ORDERED: IPRATROPIUM/ALBUTEROL 3 ML AMPUL.NEB NEB PRN (10:06)
[2018-04-28] MEDS ORDERED: PROCHLORPERAZINE 25 MG SUPP.RECT PR PRN (10:06)
[2018-04-28] MEDS ORDERED: ACETAMINOPHEN 325 MG TABLET PO PRN (10:06)
[2018-04-28] MEDS ORDERED: ONDANSETRON 4 MG/2 ML VIAL IV PRN (10:06)
--- NOTE | 2018-04-28 13:07 | XRay Report ---
HISTORY: Respiratory distress follow-up pulmonary infiltrates FINDINGS: There is severe generalized alveolar infiltrates in both lungs. There has been moderate improvement in the right lower lobe and mild improvement in the left lower lobe since yesterday. The pleural effusions have diminished in volume. There is no pneumothorax. Heart is mildly enlarged. Pulmonary vessels are obscured. Bilateral rib fractures are again noted and remain stable. IMPRESSION: Improving infiltrates in both lungs. This may be ARDS, pneumonia, pulmonary vascular congestion or combination of the above. Interpreted and Authenticated by: Imer Flores 04/28/18
--- NOTE | 2018-04-28 14:49 | Ultrasound Report ---
History: Upper abdominal pain FINDINGS: The liver is normal in size and homogeneous. In the neck of the gallbladder extending towards the cystic duct there is a small amount sludge. The remainder the gallbladder is normal with no stones or thickening of the wall. The patient was nontender while scanning over the gallbladder. The internal extrahepatic bile ducts are normal caliber with the common duct measuring up to 4.2 mm. The pancreas is normal in size and homogeneous, without evidence of inflammation or mass. There is a trace amount of fluid in Darby's pouch. Small right-sided pleural effusion is also noted. Similar findings were seen on a prior abdomen CT done on 01/16/18. IMPRESSION: Small amount of sludge in the neck of the gallbladder but without evidence of cholecystitis or gallstones. Small right-sided pleural effusion and trace amount of ascites in Morison's pouch Interpreted and Authenticated by: Imer Flores 04/28/18
[2018-04-29] MEDS: PIPERACILLIN SODIUM/TAZOBACTAM 3.375 GM in DEXTROSE 5% IN WATER 50 ML IV SCH ×3 (05:22→17:44)
[2018-04-29] MEDS: 0.9 % SODIUM CHLORIDE 10 ML SYRINGE IV SCH ×3 (05:22→22:00)
[2018-04-29] MEDS: PANTOPRAZOLE 40 MG VIAL IV SCH ×2 (06:42→17:44)
[2018-04-29 06:55] LABS: Basophils # (Auto) 0 K/mcL (0.0-0.3); Basophils % (Auto) 0.4 % (0.0-2.0); Eosinophils # (Auto) 0.2 K/mcL (0.0-0.7); Eosinophils % (Auto) 1.4 % (0.0-7.0); Granulocytes % (Auto) 89.4 % (38.0-78.0); Lymphocytes # (Auto) 0.9 K/mcL (1.5-4.8); Lymphocytes % (Auto) 6.4 % (15.5-49.0); Mean Cell Volume 95.3 fL (80.0-100.0); Mean Corpuscular Hemoglobin 31.4 pg (26.0-34.0); Monocytes # (Auto) 0.3 K/mcL (0.1-0.9); Monocytes % (Auto) 2.4 % (1.0-12.0); Platelet Count 354 K/mcL (140-440); RBC 3.42 M/mcL (4.00-5.20); Red Cell Distribution Width 16.6 % (11.5-14.5)
[2018-04-29 07:29] LABS: ALT/SGPT 9 U/l (0-40); Albumin/Globulin Ratio 0.7 (1.0-2.3); Alkaline Phosphatase 137 U/L (39-117); Bilirubin,Direct < 0.2 mg/dL (0.0-0.3); Blood Urea Nitrogen 10 mg/dl (6-20); Gamma Glutamyl Transpeptidase 23 U/L (5-36); Uric Acid 1.3 mg/dL (2.5-8.0)
[2018-04-29] MEDS: MULTIVIT,THER IRON,CA,FA & MIN 1 TABLET PO SCH (08:16)
[2018-04-29] MEDS: THIAMINE 100 MG TABLET PO SCH (08:16)
[2018-04-29] MEDS: HYDROcodone/APAP 5/325MG TABLET PO PRN (08:17)
--- NOTE | 2018-04-29 09:46 | Internal Med Progress Note ---
Medical - PN: Subj Patient information: Note initiated : 04/29/18 at 9:44 am Service Date, if different from initiated Date: [] Patient: Do Cantu 58 y/o F admitted on 04/24/18 for Hypokalemia, Alcohol Abuse, Rib Fractures. Chief Complaint: [] Interval history: 58-year-old female 2 weeks of weakness. had some diarrhea a week ago she was sitting in her diarrhea in the past and urine urine. she fell at some point chest x-ray showed nondisplaced fractures. she has leg pain from ulcers she has been sitting all day every day for 2 weeks. Drinks at least 6 beers throughout the day. She has an epigastric pain that she describes as a ulcer pain, toast makes it feel better spicy foods make it worse. She has a chronic cough. She managed to drive herself into the hospital because the leg pain. Was found to be covered with feces and urine. 04/25 States poor sleep, otherwise no overnight events. Denies nausea vomiting abdominal pain chest pain shortness of breath. Denies diarrhea or bleeding. Did get Ativan last evening for CIWA protocol. 04/26 Patient seen and examined, overnight events noted. Patient had been transferred to medical floor yesterday, there was no need for cardiac monitoring. This morning on my evaluation patient noted that she still had some pain but otherwise had no complaints. On examination she had some crackles on the right side of the chest, chest x-ray was ordered which showed she had new onset pneumonia bilaterally right more than the left. She was only on 2 L of oxygen and labs were stable. Blood cultures pro-calcitonin ordered, patient was started on Zosyn. Later in the morning early afternoon the patient decompensated became acutely hypoxic and cyanotic. Requiring 15 L of oxygen to maintain oxygen saturation more than 90. Chest x-ray showed worsening infiltrates, she was tachycardic. Arterial blood gas was drawn which showed a pH of 7.43 PCO2 32 PO2 64 and lactic acid of 2.3 this was done on nonrebreather. The patient was transferred to the ICU. Saline bolus was given, IV antibiotics and blood cultures already drawn. A new set of labs ordered. 04/27 Patient seen and examined, no acute overnight events, had increased oxygen needs. Maintenance fluid stopped and 20 mg of Lasix given. Patient responded well. Chest x-ray this morning shows worsening infiltrates bilaterally. Clinically patient appears more stable. Remains tachycardic tachypneic. Patient still quite uncomfortable in the morning was quite drowsy however later was alert oriented x2 complained about soreness all over speaks very softly. 04/28 Patient seen examined, no acute overnight issues, on 3-4 L oxygen via nasal canula, still quite weak, notes some epigastric, ruq pain, lft stable, elevated lft, previous USG/ Abdomen CT notes reviewed, Dr Juarez is following the patient , plan for EGD today if possible. Xfer to tele status. 04/29 Patient seen and examined, no acute overnight events, still on oxygen but clinically improving. No epigastric or abdominal pain reported had some back pain but no chest pain. Labs reviewed are stable. Dr. Morillo consult appreciated ultrasound of the abdomen reviewed Pertinent ROS: Denies headache, dizziness Denies chest pain, palpitations Denies cough or shortness of breath Denies abdominal pain, nausea or vomiting. - Constitutional Vitals: Vital Signs Temp Pulse Resp BP Pulse Ox 98.7 F 96 H 25 H 78/45 91 04/29/18 04:00 04/29/18 04:00 04/29/18 09:22 04/29/18 08:01 04/29/18 07:27 Period Temp Pulse Resp BP Sys/Manning Pulse Ox Last 24 Hr 97.6 F-100.0 F 75-103 17-31 78-128/45-73 90-95 Intake and Output 04/28/18 04/29/18 04/29/18 21:59 05:59 13:59 Intake Total 483 / 483 410 / 410 50 / 50 Output Total 140 / 140 275 / 275 Balance 343 / 343 135 / 135 50 / 50 Weight 117 lb 1 oz Intake & Output: Intake & Output 04/28/18 04/29/18 04/29/18 21:59 05:59 13:59 Intake Total 483 / 483 410 / 410 50 / 50 Output Total 140 / 140 275 / 275 Balance 343 / 343 135 / 135 50 / 50 Weight 117 lb 1 oz Intake: IV 423 / 423 50 / 50 50 / 50 Zosyn 3.375 gm In Dextrose 5% 50 / 50 50 / 50 50 / 50 in Water 50 ml @ 100 mls/hr IV Q6H [facility] Rx#:[id number] Oral 60 / 60 360 / 360 Output: Urine Catheter Amount 140 / 140 275 / 275 Other: Meal Nourishment/Supplement Percent of Meal Consumed 50% 50% Feeding Ability Needs Supervision Total Assistance Urine Appearance Clear Uretheral (Alonso) Clear Urine Color Bright Yellow Light Maggi Uretheral (Alonso) Straw Urine Odor Normal Stool Size Large Small Stool Color Brown Brown Stool Consistency Soft Soft Formed # Bowel Movements 1 1 Exam: Constitutional; Afebrile, cooperative, alert, not in distress. thin frail lady, soft spoken Eyes- No icterus, , No periorbital swelling Ears- Ext ear normal, hearing normal to conversation. Neck- Midline trachea, supple Respiratory system: Air Entry equal on both sides,improving air entry, no wheeze bibasilar crackles . CVS- Rate rhythm regular, S1,S2 heard, no gallop, no rub. 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 Medical - PN: Obj Da - Labs CBC & Chem 7: 04/29/18 03:50 04/29/18 03:50 Labs: Abnormal Lab Results 04/29/18 04/29/18 04/28/18 03:50 03:50 03:40 WBC 13.5 H RBC 3.42 L Hgb 10.7 L Hct 32.6 L RDW 16.6 H Plt Count MPV 7.3 L Gran % 89.4 H Lymph % (Auto) 6.4 L Gran # 12.1 H Lymph # (Auto) 0.9 L Carbon Dioxide Glucose 65 L Uric Acid 1.3 L 1.6 L Calcium 7.9 L 7.8 L Phosphorus 4.6 H Magnesium 1.5 L Alkaline Phosphatase 137 H 160 H Lactate Dehydrogenase 442 H 356 H Total Protein 5.0 L 4.7 L Albumin 2.0 L 1.9 L Albumin/Globulin Ratio 0.7 L 0.7 L 04/28/18 04/27/18 04/27/18 03:40 04:00 04:00 WBC 13.4 H 13.5 H RBC 3.30 L 3.57 L Hgb 10.4 L 11.2 L Hct 31.5 L 33.5 L RDW 16.4 H 17.2 H Plt Count MPV 7.1 L 7.0 L Gran % 88.0 H 87.9 H Lymph % (Auto) 7.6 L 6.9 L Gran # 11.8 H 11.9 H Lymph # (Auto) 1.0 L 0.9 L Carbon Dioxide Glucose Uric Acid 1.8 L Calcium 7.8 L Phosphorus Magnesium 1.3 L Alkaline Phosphatase 119 H Lactate Dehydrogenase 312 H Total Protein 5.0 L Albumin 2.2 L Albumin/Globulin Ratio 0.8 L 04/26/18 04/26/18 14:28 14:28 WBC 11.7 H RBC 2.70 L Hgb 8.4 L Hct 26.0 L RDW 16.6 H Plt Count 484 H MPV 6.4 L Gran % 88.1 H Lymph % (Auto) 9.0 L Gran # 10.3 H Lymph # (Auto) 1.1 L Carbon Dioxide 20 L Glucose 243 H Uric Acid Calcium 7.7 L Phosphorus Magnesium Alkaline Phosphatase Lactate Dehydrogenase Total Protein 4.6 L Albumin 2.2 L Albumin/Globulin Ratio 0.9 L Meds: Medications Acetaminophen (Tylenol) 650 mg PO Q6HP PRN PRN Reason: PAIN/FEVER > 101 Hydrocodone Bitart/Acetaminophen ([place] 5/325mg) 1 tab PO Q4HP PRN PRN Reason: PAIN LEVEL 3-6 Last Admin: 04/29/18 08:17 Dose: 1 tab Albuterol/Ipratropium (Duoneb) 3 ml NEB Q4HRT PRN PRN Reason: Abdominal Distention Last Admin: 04/29/18 05:22 Dose: 3 ml Clonidine HCl (Catapres) 0.1 mg PO Q4HP PRN PRN Reason: Alcohol Withdrawal Acetaminophen (Ofirmev) 650 mg in 65 mls @ 130 mls/hr IV Q6HP PRN PRN Reason: PAIN/FEVER > 101 Last Infusion: 04/28/18 20:40 Dose: Infused Piperacillin Sod/Tazobactam (Sod 3.375 gm/ Dextrose) 50 mls @ 100 mls/hr IV Q6H [facility] Last Infusion: 04/29/18 06:14 Dose: Infused Iron Carb/Multivit/[employer] Converter/Folic Acid (Multivitamin W/Minerals) 1 tab PO DAILY [facility] Last Admin: 04/29/18 08:16 Dose: 1 tab Lorazepam (Ativan) 0 mg IV Q4HP PRN; Protocol PRN Reason: Alcohol Withdrawal Morphine Sulfate (Morphine) 1 - 3 mg IV Q3HP PRN PRN Reason: PAIN LEVEL > 6 Last Admin: 04/28/18 23:36 Dose: 2 mg Ondansetron HCl (Zofran) 4 mg IV Q4HP PRN PRN Reason: Nausea And Vomiting Pantoprazole Sodium (Protonix) 40 mg IV BIDAC [facility] Last Admin: 04/29/18 06:42 Dose: 40 mg Prochlorperazine Maleate (Compazine) 12.5 mg [place] Q12HP PRN PRN Reason: Nausea And Vomiting Promethazine HCl (Phenergan) 12.5 mg PO Q6HP PRN PRN Reason: Nausea And Vomiting Sodium Chloride (Saline Flush) 10 ml IV Q8 [facility] Last Admin: 04/29/18 05:22 Dose: 10 ml Thiamine HCl (Vitamin B1) 100 mg PO DAILY [facility] Last Admin: 04/29/18 08:16 Dose: 100 mg Medical - PN: A/P - Time Spent With Patient Total time spent is greater than 50% in coordination of care (as documented) at patient's floor/unit and/or counseling patient: - Narrative A/P Narrative: A: Acute hypoxic Respiratory Failure- Due to pna, oxygen supplementation, stable oxygen needs for now at 3-4 L. continue to monitor, wean off oxygen as tolerated Sepsis with Lactic acidosis- IV fluids given, lactate is normal. Patient clinically improving, bp stable, good urine output. Aspirational Pneumonia, - ON IV zosyn, cultures negative so far, clinically improving. Anemia- GI bleed - h/h stable,IV PPI, plan for EGD today? Dr Juarez to reassess pt . Epigastric pain from gastritis? h/o gall bladder distention in the past, will reveiw with Dr Juarez Alcohol Abuse- on CIWA, prn Ativan, on mv and thiamine. CIWA score are trending down, not requiring much ativan now. Hypokalemia/Hypomagnesemia - replace aggressively. Hyponatremia- resolved - Pressure Ulcer- wound care - Tobacco abuse. - education. DVT hep sq Full code ,
--- NOTE | 2018-04-29 15:03 | XRay Report ---
HISTORY: Follow-up pulmonary infiltrates FINDINGS: There are moderate generalized alveolar infiltrates in both lungs. The greatest consolidation is in the left lower lobe. Small left-sided pleural effusion is present. There is no pneumothorax. Ununited rib fractures are again seen laterally in the right lower thorax. Comparison with the prior exam from 04/28/18 shows improving aeration of both lungs. The heart is borderline enlarged. IMPRESSION: Improving pulmonary infiltrates Interpreted and Authenticated by: Imer Flores 04/29/18
[2018-04-30] MEDS: PIPERACILLIN SODIUM/TAZOBACTAM 3.375 GM in DEXTROSE 5% IN WATER 50 ML IV SCH ×4 (00:47→17:49)
[2018-04-30] MEDS ORDERED: VANCOMYCIN 250 MG CAPSULE PO SCH (01:17)
[2018-04-30] MEDS: 0.9 % SODIUM CHLORIDE 10 ML SYRINGE IV SCH ×3 (05:49→22:08)
[2018-04-30 06:06] LABS: Basophils # (Auto) 0 K/mcL (0.0-0.3); Basophils % (Auto) 0.2 % (0.0-2.0); Eosinophils # (Auto) 0.1 K/mcL (0.0-0.7); Eosinophils % (Auto) 1.1 % (0.0-7.0); Granulocytes % (Auto) 88.4 % (38.0-78.0); Lymphocytes # (Auto) 0.9 K/mcL (1.5-4.8); Lymphocytes % (Auto) 6.9 % (15.5-49.0); Mean Cell Volume 94.1 fL (80.0-100.0); Mean Corpuscular HGB Conc 32.8 g/dL (31.0-36.0); Mean Corpuscular Hemoglobin 30.9 pg (26.0-34.0); Monocytes # (Auto) 0.4 K/mcL (0.1-0.9); Monocytes % (Auto) 3.4 % (1.0-12.0); Platelet Count 354 K/mcL (140-440); RBC 3.24 M/mcL (4.00-5.20); Red Cell Distribution Width 16.2 % (11.5-14.5)
[2018-04-30 07:02] LABS: ALT/SGPT 8 U/l (0-40); Albumin/Globulin Ratio 0.7 (1.0-2.3); Alkaline Phosphatase 150 U/L (39-117); Bilirubin,Direct < 0.2 mg/dL (0.0-0.3); Blood Urea Nitrogen 11 mg/dl (6-20); Gamma Glutamyl Transpeptidase 22 U/L (5-36); Uric Acid 1.3 mg/dL (2.5-8.0)
[2018-04-30] MEDS: PANTOPRAZOLE 40 MG VIAL IV SCH ×2 (07:54→17:07)
[2018-04-30] MEDS ORDERED: POTASSIUM CHLORIDE 80 MEQ in DEXTROSE 5% IN WATER 1,000 ML IV ONE (08:00)
[2018-04-30] MEDS: THIAMINE 100 MG TABLET PO SCH (08:15)
[2018-04-30] MEDS: HYDROcodone/APAP 5/325MG TABLET PO PRN (08:15)
[2018-04-30] MEDS: MULTIVIT,THER IRON,CA,FA & MIN 1 TABLET PO SCH (08:15)
[2018-04-30] MEDS: VANCOMYCIN ORAL SOL 1,000 MG/10 ML BOTTLE PO SCH ×3 (08:29→19:59)
[2018-04-30] MEDS ORDERED: oxyCODONE HCL 5 MG TABLET PO PRN (08:52)
[2018-04-30] MEDS ORDERED: MAGNESIUM SULFATE IN WATER 4 GM/100 ML BAG IV ONE (09:00)
--- NOTE | 2018-04-30 10:43 | XRay Report ---
HISTORY: Follow-up pulmonary infiltrates FINDINGS: There is severe widespread alveolar infiltrates throughout both lungs. These have become worse since yesterday. Small right-sided pleural effusion is present. Heart size is borderline enlarged. No pneumothorax is present. Rib fractures remain stable. IMPRESSION: Worsening infiltrates in both lungs. This may be ARDS, pneumonia, pulmonary edema or combination of the above. Interpreted and Authenticated by: Imer Flores 04/30/18
--- NOTE | 2018-04-30 12:23 | Internal Med Progress Note ---
Medical - PN: Subj Patient information: Note initiated : 04/30/18 at 12:19 pm Service Date, if different from initiated Date: [] Patient: Do aCntu 58 y/o F admitted on 04/24/18 for Hypokalemia, Alcohol Abuse, Rib Fractures. Chief Complaint: [] Interval history: 58-year-old female 2 weeks of weakness. had some diarrhea a week ago she was sitting in her diarrhea in the past and urine urine. she fell at some point chest x-ray showed nondisplaced fractures. she has leg pain from ulcers she has been sitting all day every day for 2 weeks. Drinks at least 6 beers throughout the day. She has an epigastric pain that she describes as a ulcer pain, toast makes it feel better spicy foods make it worse. She has a chronic cough. She managed to drive herself into the hospital because the leg pain. Was found to be covered with feces and urine. 04/25 States poor sleep, otherwise no overnight events. Denies nausea vomiting abdominal pain chest pain shortness of breath. Denies diarrhea or bleeding. Did get Ativan last evening for CIWA protocol. 04/26 Patient seen and examined, overnight events noted. Patient had been transferred to medical floor yesterday, there was no need for cardiac monitoring. This morning on my evaluation patient noted that she still had some pain but otherwise had no complaints. On examination she had some crackles on the right side of the chest, chest x-ray was ordered which showed she had new onset pneumonia bilaterally right more than the left. She was only on 2 L of oxygen and labs were stable. Blood cultures pro-calcitonin ordered, patient was started on Zosyn. Later in the morning early afternoon the patient decompensated became acutely hypoxic and cyanotic. Requiring 15 L of oxygen to maintain oxygen saturation more than 90. Chest x-ray showed worsening infiltrates, she was tachycardic. Arterial blood gas was drawn which showed a pH of 7.43 PCO2 32 PO2 64 and lactic acid of 2.3 this was done on nonrebreather. The patient was transferred to the ICU. Saline bolus was given, IV antibiotics and blood cultures already drawn. A new set of labs ordered. 04/27 Patient seen and examined, no acute overnight events, had increased oxygen needs. Maintenance fluid stopped and 20 mg of Lasix given. Patient responded well. Chest x-ray this morning shows worsening infiltrates bilaterally. Clinically patient appears more stable. Remains tachycardic tachypneic. Patient still quite uncomfortable in the morning was quite drowsy however later was alert oriented x2 complained about soreness all over speaks very softly. 04/28 Patient seen examined, no acute overnight issues, on 3-4 L oxygen via nasal canula, still quite weak, notes some epigastric, ruq pain, lft stable, elevated lft, previous USG/ Abdomen CT notes reviewed, Dr Juarez is following the patient , plan for EGD today if possible. Xfer to tele status. 04/29 Patient seen and examined, no acute overnight events, still on oxygen but clinically improving. No epigastric or abdominal pain reported had some back pain but no chest pain. Labs reviewed are stable. Dr. Morillo consult appreciated ultrasound of the abdomen reviewed 04/30 Patient seen and examined no acute overnight events, chest x-ray today shows some worsening of the pulmonary infiltrates but clinically patient appears better. She has been having diarrhea and persistent leukocytosis, C. difficile was checked is positive. Patient has been started on p.o. vancomycin. Patient notes about chronic back pain denies any other acute complaints or concerns Pertinent ROS: Denies headache, dizziness Denies chest pain, palpitations Denies cough or shortness of breath Denies abdominal pain, nausea or vomiting. - Constitutional Vitals: Vital Signs Temp Pulse Resp BP Pulse Ox 98.7 F 109 H 20 98/62 99 04/30/18 06:47 04/29/18 19:15 04/30/18 04:01 04/30/18 08:01 04/30/18 08:01 Period Temp Pulse Resp BP Sys/Manning Pulse Ox Last 24 Hr 97.3 F-100.9 F 49-116 20-32 98-111/54-70 85-99 Intake and Output 04/29/18 04/30/18 04/30/18 21:59 05:59 13:59 Intake Total 520 / 520 230 / 230 50 / 50 Output Total 250 / 250 260 / 260 Balance 270 / 270 -30 / -30 50 / 50 Weight 113 lb 4.8 oz Intake & Output: Intake & Output 04/29/18 04/30/18 04/30/18 21:59 05:59 13:59 Intake Total 520 / 520 230 / 230 50 / 50 Output Total 250 / 250 260 / 260 Balance 270 / 270 -30 / -30 50 / 50 Weight 113 lb 4.8 oz Intake: IV 50 / 50 50 / 50 50 / 50 Zosyn 3.375 gm In Dextrose 5% 50 / 50 50 / 50 50 / 50 in Water 50 ml @ 100 mls/hr IV Q6H [facility] Rx#:[id number] Oral 470 / 470 180 / 180 Output: Urine Catheter Amount 250 / 250 260 / 260 Other: Meal Lunch snack Percent of Meal Consumed 50% 50% Feeding Ability Total Assistance Assist with Tray Set Up Urine Appearance Clear Clear Urine Color Dark Yellow Dark Yellow Urine Odor Strong Stool Size Moderate Moderate Moderate Stool Color Brown Brown Green Stool Consistency Loose Liquid Liquid # Bowel Movements 1 # of times incontinent of 1 1 1 Bowels Exam: Constitutional; Afebrile, cooperative, alert, not in distress. Neck- Midline trachea, supple Respiratory system: Air Entry equal on both sides, improved air entry bilaterally, has bibasilar crackles still. . 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 Medical - PN: Obj Da - Labs CBC & Chem 7: 04/30/18 03:55 04/30/18 03:55 Labs: Abnormal Lab Results 04/30/18 04/30/18 04/29/18 03:55 03:55 03:50 WBC 13.1 H RBC 3.24 L Hgb 10.0 L Hct 30.5 L RDW 16.2 H MPV Gran % 88.4 H Lymph % (Auto) 6.9 L Gran # 11.6 H Lymph # (Auto) 0.9 L Potassium 2.9 L* Creatinine 0.5 L Glucose 65 L Uric Acid 1.3 L 1.3 L Calcium 7.8 L 7.9 L Phosphorus Magnesium 1.5 L Alkaline Phosphatase 150 H 137 H Lactate Dehydrogenase 437 H 442 H Total Protein 4.7 L 5.0 L Albumin 2.0 L 2.0 L Albumin/Globulin Ratio 0.7 L 0.7 L 04/29/18 04/28/18 04/28/18 03:50 03:40 03:40 WBC 13.5 H 13.4 H RBC 3.42 L 3.30 L Hgb 10.7 L 10.4 L Hct 32.6 L 31.5 L RDW 16.6 H 16.4 H MPV 7.3 L 7.1 L Gran % 89.4 H 88.0 H Lymph % (Auto) 6.4 L 7.6 L Gran # 12.1 H 11.8 H Lymph # (Auto) 0.9 L 1.0 L Potassium Creatinine Glucose Uric Acid 1.6 L Calcium 7.8 L Phosphorus 4.6 H Magnesium 1.5 L Alkaline Phosphatase 160 H Lactate Dehydrogenase 356 H Total Protein 4.7 L Albumin 1.9 L Albumin/Globulin Ratio 0.7 L Meds: Medications Acetaminophen (Tylenol) 650 mg PO Q6HP PRN PRN Reason: PAIN/FEVER > 101 Albuterol/Ipratropium (Duoneb) 3 ml NEB Q4HRT PRN PRN Reason: Abdominal Distention Last Admin: 04/29/18 05:22 Dose: 3 ml Clonidine HCl (Catapres) 0.1 mg PO Q4HP PRN PRN Reason: Alcohol Withdrawal Acetaminophen (Ofirmev) 650 mg in 65 mls @ 130 mls/hr IV Q6HP PRN PRN Reason: PAIN/FEVER > 101 Last Infusion: 04/28/18 20:40 Dose: Infused Piperacillin Sod/Tazobactam (Sod 3.375 gm/ Dextrose) 50 mls @ 100 mls/hr IV Q6H [facility] Last Infusion: 04/30/18 06:30 Dose: Infused Potassium Chloride 80 meq/ (Dextrose) 1,040 mls @ 130 mls/hr IV ONCE ONE Stop: 04/30/18 15:59 Last Admin: 04/30/18 09:53 Dose: 130 mls/hr Iron Carb/Multivit/[place]/Folic Acid (Multivitamin W/Minerals) 1 tab PO DAILY [facility] Last Admin: 04/30/18 08:15 Dose: 1 tab Lorazepam (Ativan) 0 mg IV Q4HP PRN; Protocol PRN Reason: Alcohol Withdrawal Ondansetron HCl (Zofran) 4 mg IV Q4HP PRN PRN Reason: Nausea And Vomiting Oxycodone HCl (Roxicodone) 5 mg PO Q4HP PRN PRN Reason: Severe Pain Pantoprazole Sodium (Protonix) 40 mg IV BIDAC [facility] Last Admin: 04/30/18 07:54 Dose: 40 mg Potassium Chloride (Klor-Con) 40 meq PO ONCE ONE Stop: 04/30/18 18:01 Prochlorperazine Maleate (Compazine) 12.5 mg [place] Q12HP PRN PRN Reason: Nausea And Vomiting Promethazine HCl (Phenergan) 12.5 mg PO Q6HP PRN PRN Reason: Nausea And Vomiting Sodium Chloride (Saline Flush) 10 ml IV Q8 [facility] Last Admin: 04/30/18 05:49 Dose: 10 ml Thiamine HCl (Vitamin B1) 100 mg PO DAILY [facility] Last Admin: 04/30/18 08:15 Dose: 100 mg Vancomycin HCl (Vancomycin Oral Meera) 250 mg PO Q6H [facility] Last Admin: 04/30/18 08:29 Dose: 2.5 ml Medical - PN: A/P - Time Spent With Patient Total time spent is greater than 50% in coordination of care (as documented) at patient's floor/unit and/or counseling patient: - Narrative A/P Narrative: A: Acute hypoxic Respiratory Failure- Due to pna, oxygen supplementation, stable oxygen needs for now at 2-3 L. continue to monitor, wean off oxygen as tolerated Sepsis with Lactic acidosis- IV fluids given, lactate is normal. Patient clinically improving, bp stable, good urine output. Aspirational Pneumonia, - ON IV zosyn, cultures negative so far, clinically improving. Cdiff colitis- STarted on po vancomycin Anemia- GI bleed - h/h stable,IV PPI, plan for EGD today? Dr Juarez to reassess pt . Epigastric pain from gastritis? h/o gall bladder distention in the past, will reveiw with Dr Juarez Alcohol Abuse- on CIWA, prn Ativan, on mv and thiamine. CIWA score are trending down, not requiring much ativan now. Hypokalemia/Hypomagnesemia - replace aggressively. stil low due to diarrhea, Hyponatremia- resolved - Pressure Ulcer- wound care - Tobacco abuse. - education. DVT hep sq Full code ,
[2018-04-30] MEDS ORDERED: POTASSIUM CHLORIDE 20 MEQ PACKET PO ONE (18:00)
[2018-05-01] MEDS: PIPERACILLIN SODIUM/TAZOBACTAM 3.375 GM in DEXTROSE 5% IN WATER 50 ML IV SCH ×4 (00:18→17:23)
[2018-05-01] MEDS: VANCOMYCIN ORAL SOL 1,000 MG/10 ML BOTTLE PO SCH ×4 (02:09→19:38)
[2018-05-01] MEDS: 0.9 % SODIUM CHLORIDE 10 ML SYRINGE IV SCH ×2 (05:36→15:07)
[2018-05-01 05:40] LABS: Basophils # (Auto) 0 K/mcL (0.0-0.3); Basophils % (Auto) 0.3 % (0.0-2.0); Eosinophils # (Auto) 0.3 K/mcL (0.0-0.7); Eosinophils % (Auto) 2.2 % (0.0-7.0); Granulocytes % (Auto) 84.8 % (38.0-78.0); Lymphocytes # (Auto) 1.2 K/mcL (1.5-4.8); Lymphocytes % (Auto) 9.4 % (15.5-49.0); Mean Corpuscular HGB Conc 32.6 g/dL (31.0-36.0); Monocytes # (Auto) 0.4 K/mcL (0.1-0.9); Monocytes % (Auto) 3.3 % (1.0-12.0); Platelet Count 420 K/mcL (140-440); Red Cell Distribution Width 16.2 % (11.5-14.5)
[2018-05-01 06:16] LABS: ALT/SGPT 9 U/l (0-40); Albumin 2.2 gm/dL (3.2-5.2); Albumin/Globulin Ratio 0.8 (1.0-2.3); Alkaline Phosphatase 236 U/L (39-117); Bilirubin,Direct < 0.2 mg/dL (0.0-0.3); Blood Urea Nitrogen 8 mg/dl (6-20); Gamma Glutamyl Transpeptidase 23 U/L (5-36); Uric Acid 1.3 mg/dL (2.5-8.0)
[2018-05-01] MEDS: PANTOPRAZOLE 40 MG VIAL IV SCH ×2 (07:18→17:22)
[2018-05-01] MEDS: MULTIVIT,THER IRON,CA,FA & MIN 1 TABLET PO SCH (08:09)
[2018-05-01] MEDS: THIAMINE 100 MG TABLET PO SCH (08:09)
[2018-05-01] MEDS ORDERED: MAGNESIUM SULFATE 2 GM/50 ML BAG IV ONE (08:25)
[2018-05-01] MEDS ORDERED: POTASSIUM CHLORIDE 20 MEQ PACKET PO ONE (08:25)
--- NOTE | 2018-05-01 09:04 | XRay Report ---
CLINICAL INFORMATION: f/u of infiltrate and fluid overload COMPARISON: 02/09/2018 and 04/30/2018 FINDINGS: Moderate cardiomegaly is unchanged. Mediastinum is unremarkable. Pulmonary vessels are mildly distended, but decreased. Diffuse airspace disease which is likely pulmonary edema has improved considerably from yesterday. Right basilar airspace disease has improved considerably from yesterday. Small left pleural effusion worsening. Multiple old left-sided rib fractures are again noted IMPRESSION: Moderate improvement in diffuse airspace disease since yesterday. This is likely resolving pulmonary edema from congestive heart failure or volume overload. Interpreted and Authenticated by: Hemanth Mccabe 05/01/18
--- NOTE | 2018-05-01 10:44 | Internal Med Progress Note ---
Medical - PN: Subj Patient information: Note initiated : 05/01/18 at 10:38 am Service Date, if different from initiated Date: [] Patient: Do Cantu 58 y/o F admitted on 04/24/18 for Hypokalemia, Alcohol Abuse, Rib Fractures. Chief Complaint: [] Interval history: 58-year-old female 2 weeks of weakness. had some diarrhea a week ago she was sitting in her diarrhea in the past and urine urine. she fell at some point chest x-ray showed nondisplaced fractures. she has leg pain from ulcers she has been sitting all day every day for 2 weeks. Drinks at least 6 beers throughout the day. She has an epigastric pain that she describes as a ulcer pain, toast makes it feel better spicy foods make it worse. She has a chronic cough. She managed to drive herself into the hospital because the leg pain. Was found to be covered with feces and urine. 04/25 States poor sleep, otherwise no overnight events. Denies nausea vomiting abdominal pain chest pain shortness of breath. Denies diarrhea or bleeding. Did get Ativan last evening for CIWA protocol. 04/26 Patient seen and examined, overnight events noted. Patient had been transferred to medical floor yesterday, there was no need for cardiac monitoring. This morning on my evaluation patient noted that she still had some pain but otherwise had no complaints. On examination she had some crackles on the right side of the chest, chest x-ray was ordered which showed she had new onset pneumonia bilaterally right more than the left. She was only on 2 L of oxygen and labs were stable. Blood cultures pro-calcitonin ordered, patient was started on Zosyn. Later in the morning early afternoon the patient decompensated became acutely hypoxic and cyanotic. Requiring 15 L of oxygen to maintain oxygen saturation more than 90. Chest x-ray showed worsening infiltrates, she was tachycardic. Arterial blood gas was drawn which showed a pH of 7.43 PCO2 32 PO2 64 and lactic acid of 2.3 this was done on nonrebreather. The patient was transferred to the ICU. Saline bolus was given, IV antibiotics and blood cultures already drawn. A new set of labs ordered. 04/27 Patient seen and examined, no acute overnight events, had increased oxygen needs. Maintenance fluid stopped and 20 mg of Lasix given. Patient responded well. Chest x-ray this morning shows worsening infiltrates bilaterally. Clinically patient appears more stable. Remains tachycardic tachypneic. Patient still quite uncomfortable in the morning was quite drowsy however later was alert oriented x2 complained about soreness all over speaks very softly. 04/28 Patient seen examined, no acute overnight issues, on 3-4 L oxygen via nasal canula, still quite weak, notes some epigastric, ruq pain, lft stable, elevated lft, previous USG/ Abdomen CT notes reviewed, Dr Juarez is following the patient , plan for EGD today if possible. Xfer to tele status. 04/29 Patient seen and examined, no acute overnight events, still on oxygen but clinically improving. No epigastric or abdominal pain reported had some back pain but no chest pain. Labs reviewed are stable. Dr. Morillo consult appreciated ultrasound of the abdomen reviewed 04/30 Patient seen and examined no acute overnight events, chest x-ray today shows some worsening of the pulmonary infiltrates but clinically patient appears better. She has been having diarrhea and persistent leukocytosis, C. difficile was checked is positive. Patient has been started on p.o. vancomycin. Patient notes about chronic back pain denies any other acute complaints or concerns 05/01 Patient seen examined, no acute overnight issues, tolerating po diet well, still on dysphagi diet though. She still has significant diarrhea and this is her biggest concern. Also not happy with the food (dysphagia diet) Chest x ray shows improving infiltrates labs are stable, K better, xfer to med surg status. started on banatrol she was wondering when the cocktail hour starts, Pertinent ROS: Denies headache, dizziness Denies chest pain, palpitations Denies cough or shortness of breath Denies abdominal pain, nausea or vomiting. - Constitutional Vitals: Vital Signs Temp Pulse Resp BP Pulse Ox 97.9 F 87 18 117/71 95 05/01/18 07:05 05/01/18 07:05 05/01/18 07:05 05/01/18 07:05 05/01/18 09:00 Period Temp Pulse Resp BP Sys/Manning Pulse Ox Last 24 Hr 96.6 F-99.2 F 84-101 18-32 105-131/59-95 81-98 Intake and Output 04/30/18 05/01/18 05/01/18 21:59 05:59 13:59 Intake Total 1270 / 1270 630 / 630 710 / 710 Output Total 450 / 450 Balance 1270 / 1270 180 / 180 710 / 710 Weight 116 lb 8 oz Intake & Output: Intake & Output 04/30/18 05/01/18 05/01/18 21:59 05:59 13:59 Intake Total 1270 / 1270 630 / 630 710 / 710 Output Total 450 / 450 Balance 1270 / 1270 180 / 180 710 / 710 Weight 116 lb 8 oz Intake: IV 1090 / 1090 50 / 50 Zosyn 3.375 gm In Dextrose 5% 50 / 50 50 / 50 in Water 50 ml @ 100 mls/hr IV Q6H [facility] Rx#:[id number] Oral 180 / 180 580 / 580 710 / 710 Output: Urine Catheter Amount 450 / 450 Other: Meal Lunch Breakfast Percent of Meal Consumed 50% 100% Feeding Ability Independent Assist with Tray Set Up Urine Appearance Clear Clear Clear Uretheral (Alonso) Clear Urine Color Dark Yellow Dark Yellow Pale Uretheral (Alonso) Pale Stool Size Small Moderate Stool Color Brown Brown Green Green Stool Consistency Liquid Liquid # Bowel Movements 1 # of times incontinent of 1 1 Bowels Exam: Constitutional; Afebrile, cooperative, alert, not in distress. thin frail lady Respiratory system: Air Entry equal on both sides, improving crackles, improving breath sounds. CVS- Rate rhythm regular, S1,S2 heard, no gallop, no rub. 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 Medical - PN: Obj Da - Labs CBC & Chem 7: 05/01/18 04:00 05/01/18 04:00 Labs: Abnormal Lab Results 05/01/18 05/01/18 04/30/18 04:00 04:00 03:55 WBC 12.6 H RBC 3.30 L Hgb 10.2 L Hct 31.3 L RDW 16.2 H MPV 7.3 L Gran % 84.8 H Lymph % (Auto) 9.4 L Gran # 10.7 H Lymph # (Auto) 1.2 L Potassium 2.9 L* Creatinine 0.5 L Glucose 118 H Uric Acid 1.3 L 1.3 L Calcium 7.8 L 7.8 L Phosphorus 2.0 L Magnesium 1.5 L Alkaline Phosphatase 236 H 150 H Lactate Dehydrogenase 532 H 437 H Total Protein 4.9 L 4.7 L Albumin 2.2 L 2.0 L Albumin/Globulin Ratio 0.8 L 0.7 L 04/30/18 04/29/18 04/29/18 03:55 03:50 03:50 WBC 13.1 H 13.5 H RBC 3.24 L 3.42 L Hgb 10.0 L 10.7 L Hct 30.5 L 32.6 L RDW 16.2 H 16.6 H MPV 7.3 L Gran % 88.4 H 89.4 H Lymph % (Auto) 6.9 L 6.4 L Gran # 11.6 H 12.1 H Lymph # (Auto) 0.9 L 0.9 L Potassium Creatinine Glucose 65 L Uric Acid 1.3 L Calcium 7.9 L Phosphorus Magnesium Alkaline Phosphatase 137 H Lactate Dehydrogenase 442 H Total Protein 5.0 L Albumin 2.0 L Albumin/Globulin Ratio 0.7 L Meds: Medications Acetaminophen (Tylenol) 650 mg PO Q6HP PRN PRN Reason: PAIN/FEVER > 101 Last Admin: 05/01/18 07:19 Dose: 650 mg Albuterol/Ipratropium (Duoneb) 3 ml NEB Q4HRT PRN PRN Reason: Abdominal Distention Last Admin: 04/29/18 05:22 Dose: 3 ml Clonidine HCl (Catapres) 0.1 mg PO Q4HP PRN PRN Reason: Alcohol Withdrawal Acetaminophen (Ofirmev) 650 mg in 65 mls @ 130 mls/hr IV Q6HP PRN PRN Reason: PAIN/FEVER > 101 Last Infusion: 04/28/18 20:40 Dose: Infused Piperacillin Sod/Tazobactam (Sod 3.375 gm/ Dextrose) 50 mls @ 100 mls/hr IV Q6H [facility] Last Admin: 05/01/18 05:36 Dose: 100 mls/hr Iron Carb/Multivit/[employer]/Folic Acid (Multivitamin W/Minerals) 1 tab PO DAILY [facility] Last Admin: 05/01/18 08:09 Dose: 1 tab Lorazepam (Ativan) 0 mg IV Q4HP PRN; Protocol PRN Reason: Alcohol Withdrawal Ondansetron HCl (Zofran) 4 mg IV Q4HP PRN PRN Reason: Nausea And Vomiting Oxycodone HCl (Roxicodone) 5 mg PO Q4HP PRN PRN Reason: Severe Pain Last Admin: 04/30/18 17:07 Dose: 5 mg Pantoprazole Sodium (Protonix) 40 mg IV BIDAC [facility] Last Admin: 05/01/18 07:18 Dose: 40 mg Prochlorperazine Maleate (Compazine) 12.5 mg [place] Q12HP PRN PRN Reason: Nausea And Vomiting Promethazine HCl (Phenergan) 12.5 mg PO Q6HP PRN PRN Reason: Nausea And Vomiting Sodium Chloride (Saline Flush) 10 ml IV Q8 [facility] Last Admin: 05/01/18 05:36 Dose: 10 ml Thiamine HCl (Vitamin B1) 100 mg PO DAILY [facility] Last Admin: 05/01/18 08:09 Dose: 100 mg Vancomycin HCl (Vancomycin Oral Meera) 250 mg PO Q6H [facility] Last Admin: 05/01/18 07:18 Dose: 2.5 ml Medical - PN: A/P - Time Spent With Patient Total time spent is greater than 50% in coordination of care (as documented) at patient's floor/unit and/or counseling patient: - Narrative A/P Narrative: A: Acute hypoxic Respiratory Failure- Due to pna, oxygen supplementation, stable oxygen needs for now at 2-3 L. continue to monitor, wean off oxygen as tolerated Sepsis with Lactic acidosis- resolved. Aspirational Pneumonia, - ON IV zosyn, cultures negative so far, clinically improving. Day 6 of antibiotics today. Cdiff colitis- STarted on po vancomycin 250mg qid day 2 of antibiotics. started on banatrol for symptomatic relief. Anemia- GI bleed -on PPI BID, Dr Juarez to do EGD, hb stable. Alcohol Abuse- on CIWA, prn Ativan, on mv and thiamine. CIWA score are trending down, not requiring much ativan now. Hypokalemia/Hypomagnesemia - replace aggressively. stil low due to diarrhea, Hyponatremia- resolved - Pressure Ulcer- wound care following. Tobacco abuse. - education. DVT hep sq Full code xfer to med surg status. watch bed. ,
[2018-05-01] MEDS ORDERED: PROCHLORPERAZINE 25 MG SUPP.RECT PR PRN (11:55)
[2018-05-01] MEDS ORDERED: cloNIDine HCL 0.1 MG TABLET PO PRN (11:55)
[2018-05-01] MEDS ORDERED: IPRATROPIUM/ALBUTEROL 3 ML AMPUL.NEB NEB PRN (11:55)
[2018-05-01] MEDS ORDERED: LORazepam 2 MG/ML VIAL IV PRN (11:55)
[2018-05-01] MEDS ORDERED: PROMETHAZINE 25 MG TABLET PO PRN (11:55)
[2018-05-01] MEDS ORDERED: ONDANSETRON 4 MG/2 ML VIAL IV PRN (11:55)
[2018-05-01] MEDS ORDERED: ACETAMINOPHEN 650 MG/65 ML BOTTLE IV PRN (11:55)
[2018-05-01] MEDS: oxyCODONE HCL 5 MG TABLET PO PRN ×2 (17:31→22:41)
[2018-05-01] MEDS: ACETAMINOPHEN 325 MG TABLET PO PRN (19:37)
[2018-05-02] MEDS: PIPERACILLIN SODIUM/TAZOBACTAM 3.375 GM in DEXTROSE 5% IN WATER 50 ML IV SCH ×4 (00:44→17:23)
[2018-05-02] MEDS: 0.9 % SODIUM CHLORIDE 10 ML SYRINGE IV SCH ×4 (00:46→22:34)
[2018-05-02] MEDS: VANCOMYCIN ORAL SOL 1,000 MG/10 ML BOTTLE PO SCH ×4 (02:04→19:23)
[2018-05-02 05:53] LABS: Basophils # (Auto) 0.1 K/mcL (0.0-0.3); Basophils % (Auto) 0.5 % (0.0-2.0); Eosinophils # (Auto) 0.4 K/mcL (0.0-0.7); Eosinophils % (Auto) 3.2 % (0.0-7.0); Granulocytes % (Auto) 83.1 % (38.0-78.0); Lymphocytes # (Auto) 1.3 K/mcL (1.5-4.8); Lymphocytes % (Auto) 10.1 % (15.5-49.0); Mean Cell Volume 94.5 fL (80.0-100.0); Mean Corpuscular HGB Conc 32.4 g/dL (31.0-36.0); Mean Corpuscular Hemoglobin 30.6 pg (26.0-34.0); Monocytes # (Auto) 0.4 K/mcL (0.1-0.9); Monocytes % (Auto) 3.1 % (1.0-12.0); Platelet Count 458 K/mcL (140-440); RBC 3.23 M/mcL (4.00-5.20); Red Cell Distribution Width 16.2 % (11.5-14.5)
[2018-05-02 06:24] LABS: ALT/SGPT 8 U/l (0-40); Albumin/Globulin Ratio 0.7 (1.0-2.3); Alkaline Phosphatase 136 U/L (39-117); Bilirubin,Direct < 0.2 mg/dL (0.0-0.3); Blood Urea Nitrogen 8 mg/dl (6-20); Gamma Glutamyl Transpeptidase 23 U/L (5-36); Uric Acid 1.4 mg/dL (2.5-8.0)
[2018-05-02] MEDS: PANTOPRAZOLE 40 MG VIAL IV SCH ×2 (08:18→16:09)
[2018-05-02] MEDS: MULTIVIT,THER IRON,CA,FA & MIN 1 TABLET PO SCH (08:20)
[2018-05-02] MEDS: THIAMINE 100 MG TABLET PO SCH (08:20)
[2018-05-02] MEDS: oxyCODONE HCL 5 MG TABLET PO PRN ×2 (08:21→19:23)
[2018-05-02] MEDS ORDERED: MAGNESIUM SULFATE 2 GM/50 ML BAG IV ONE (08:52)
--- NOTE | 2018-05-02 09:48 | Internal Med Progress Note ---
Medical - PN: Subj Patient information: Note initiated : 05/02/18 at 9:45 am Service Date, if different from initiated Date: [] Patient: Do Cantu 58 y/o F admitted on 04/24/18 for Hypokalemia, Alcohol Abuse, Rib Fractures. Chief Complaint: [] Interval history: 58-year-old female 2 weeks of weakness. had some diarrhea a week ago she was sitting in her diarrhea in the past and urine urine. she fell at some point chest x-ray showed nondisplaced fractures. she has leg pain from ulcers she has been sitting all day every day for 2 weeks. Drinks at least 6 beers throughout the day. She has an epigastric pain that she describes as a ulcer pain, toast makes it feel better spicy foods make it worse. She has a chronic cough. She managed to drive herself into the hospital because the leg pain. Was found to be covered with feces and urine. 04/25 States poor sleep, otherwise no overnight events. Denies nausea vomiting abdominal pain chest pain shortness of breath. Denies diarrhea or bleeding. Did get Ativan last evening for CIWA protocol. 04/26 Patient seen and examined, overnight events noted. Patient had been transferred to medical floor yesterday, there was no need for cardiac monitoring. This morning on my evaluation patient noted that she still had some pain but otherwise had no complaints. On examination she had some crackles on the right side of the chest, chest x-ray was ordered which showed she had new onset pneumonia bilaterally right more than the left. She was only on 2 L of oxygen and labs were stable. Blood cultures pro-calcitonin ordered, patient was started on Zosyn. Later in the morning early afternoon the patient decompensated became acutely hypoxic and cyanotic. Requiring 15 L of oxygen to maintain oxygen saturation more than 90. Chest x-ray showed worsening infiltrates, she was tachycardic. Arterial blood gas was drawn which showed a pH of 7.43 PCO2 32 PO2 64 and lactic acid of 2.3 this was done on nonrebreather. The patient was transferred to the ICU. Saline bolus was given, IV antibiotics and blood cultures already drawn. A new set of labs ordered. 04/27 Patient seen and examined, no acute overnight events, had increased oxygen needs. Maintenance fluid stopped and 20 mg of Lasix given. Patient responded well. Chest x-ray this morning shows worsening infiltrates bilaterally. Clinically patient appears more stable. Remains tachycardic tachypneic. Patient still quite uncomfortable in the morning was quite drowsy however later was alert oriented x2 complained about soreness all over speaks very softly. 04/28 Patient seen examined, no acute overnight issues, on 3-4 L oxygen via nasal canula, still quite weak, notes some epigastric, ruq pain, lft stable, elevated lft, previous USG/ Abdomen CT notes reviewed, Dr Juarez is following the patient , plan for EGD today if possible. Xfer to tele status. 04/29 Patient seen and examined, no acute overnight events, still on oxygen but clinically improving. No epigastric or abdominal pain reported had some back pain but no chest pain. Labs reviewed are stable. Dr. Morillo consult appreciated ultrasound of the abdomen reviewed 04/30 Patient seen and examined no acute overnight events, chest x-ray today shows some worsening of the pulmonary infiltrates but clinically patient appears better. She has been having diarrhea and persistent leukocytosis, C. difficile was checked is positive. Patient has been started on p.o. vancomycin. Patient notes about chronic back pain denies any other acute complaints or concerns 05/01 Patient seen examined, no acute overnight issues, tolerating po diet well, still on dysphagi diet though. She still has significant diarrhea and this is her biggest concern. Also not happy with the food (dysphagia diet) Chest x ray shows improving infiltrates labs are stable, K better, xfer to med surg status. started on banatrol she was wondering when the cocktail hour starts, 05/02-patient doing well. Improved diarrhea now for 5 episodes a day. Denies abdominal pain fever chills. Much improved breathing. No concerns expressed by nursing staff. Tolerating diet. - Constitutional Vitals: Vital Signs Temp Pulse Resp BP Pulse Ox 98.0 F 92 H 16 142/76 94 05/02/18 07:13 05/02/18 07:12 05/02/18 07:12 05/02/18 07:12 05/02/18 09:00 Period Temp Pulse Resp BP Sys/Manning Pulse Ox Last 24 Hr 96.9 F-98.9 F 88-97 2-24 110-142/60-76 91-99 Intake and Output 10/22/18 10/23/18 10/23/18 21:59 05:59 13:59 Intake Total 670 / 670 1244 / 1244 50 / 50 Output Total 650 / 650 910 / 910 Balance 334 / 334 50 / 50 Weight 119 lb 8 oz Intake & Output: Intake & Output 05/01/18 05/02/18 05/02/18 21:59 05:59 13:59 Intake Total 670 / 670 1244 / 1244 50 / 50 Output Total 650 / 650 910 / 910 Balance 334 / 334 50 / 50 Weight 119 lb 8 oz Intake: IV 50 / 50 50 / 50 50 / 50 Zosyn 3.375 gm In Dextrose 5% 50 / 50 50 / 50 50 / 50 in Water 50 ml @ 100 mls/hr IV Q6H [facility] Rx#:[id number] Oral 620 / 620 1194 / 1194 Output: Urine Catheter Amount 650 / 650 900 / 900 Stool Other: Meal Dinner Tuna sandwich Percent of Meal Consumed 75% 50% Feeding Ability Assist with Tray Set Up Urine Appearance Clear Uretheral (Alonso) Clear Urine Color Bright Yellow Uretheral (Alonso) Dark Yellow Pale Stool Size Moderate Small Small Stool Color Brown Brown Brown Stool Consistency Soft Loose Loose Loose # Bowel Movements 1 1 1 # of times incontinent of 1 Bowels General appearance: cooperative, no acute distress Exam: Alert oriented minimal anxiety Nonlabored breathing Nondistended abdomen Medical - PN: Obj Da - Labs CBC & Chem 7: 05/02/18 04:09 05/02/18 04:09 Labs: Abnormal Lab Results 05/02/18 05/02/18 05/01/18 04:09 04:09 04:00 WBC 12.4 H RBC 3.23 L Hgb 9.9 L Hct 30.6 L RDW 16.2 H Plt Count 458 H MPV Gran % 83.1 H Lymph % (Auto) 10.1 L Gran # 10.3 H Lymph # (Auto) 1.3 L Potassium Carbon Dioxide 21 L Creatinine Glucose 118 H Uric Acid 1.4 L 1.3 L Calcium 7.9 L 7.8 L Phosphorus 2.0 L Magnesium 1.4 L Alkaline Phosphatase 136 H 236 H Lactate Dehydrogenase 362 H 532 H Total Protein 5.0 L 4.9 L Albumin 2.0 L 2.2 L Albumin/Globulin Ratio 0.7 L 0.8 L 05/01/18 04/30/1818 04:00 03:55 03:55 WBC 12.6 H 13.1 H RBC 3.30 L 3.24 L Hgb 10.2 L 10.0 L Hct 31.3 L 30.5 L RDW 16.2 H 16.2 H Plt Count MPV 7.3 L Gran % 84.8 H 88.4 H Lymph % (Auto) 9.4 L 6.9 L Gran # 10.7 H 11.6 H Lymph # (Auto) 1.2 L 0.9 L Potassium 2.9 L* Carbon Dioxide Creatinine 0.5 L Glucose Uric Acid 1.3 L Calcium 7.8 L Phosphorus Magnesium 1.5 L Alkaline Phosphatase 150 H Lactate Dehydrogenase 437 H Total Protein 4.7 L Albumin 2.0 L Albumin/Globulin Ratio 0.7 L Meds: Medications Acetaminophen (Tylenol) 650 mg PO Q6HP PRN PRN Reason: PAIN/FEVER > 101 Last Admin: 05/01/18 19:37 Dose: 650 mg Albuterol/Ipratropium (Duoneb) 3 ml NEB Q4HRT PRN PRN Reason: Abdominal Distention Clonidine HCl (Catapres) 0.1 mg PO Q4HP PRN PRN Reason: Alcohol Withdrawal Acetaminophen (Ofirmev) 650 mg in 65 mls @ 130 mls/hr IV Q6HP PRN PRN Reason: PAIN/FEVER > 101 Piperacillin Sod/Tazobactam (Sod 3.375 gm/ Dextrose) 50 mls @ 100 mls/hr IV Q6H [facility] Last Infusion: 05/02/18 08:28 Dose: Infused Magnesium Sulfate (Magnesium Sulfate) 2 gm in 50 mls @ 50 mls/hr IV ONCE ONE Stop: 05/02/18 09:51 Iron Carb/Multivit/[place]/Folic Acid (Multivitamin W/Minerals) 1 tab PO DAILY [facility] Last Admin: 05/02/18 08:20 Dose: 1 tab Lorazepam (Ativan) 0 mg IV Q4HP PRN; Protocol PRN Reason: Alcohol Withdrawal Ondansetron HCl (Zofran) 4 mg IV Q4HP PRN PRN Reason: Nausea And Vomiting Oxycodone HCl (Roxicodone) 5 mg PO Q4HP PRN PRN Reason: Severe Pain Last Admin: 05/02/18 08:21 Dose: 5 mg Pantoprazole Sodium (Protonix) 40 mg IV BIDAC [facility] Last Admin: 05/02/18 08:18 Dose: 40 mg Prochlorperazine Maleate (Compazine) 12.5 mg [place] Q12HP PRN PRN Reason: Nausea And Vomiting Promethazine HCl (Phenergan) 12.5 mg PO Q6HP PRN PRN Reason: Nausea And Vomiting Sodium Chloride (Saline Flush) 10 ml IV Q8 [facility] Last Admin: 05/02/18 05:35 Dose: 10 ml Thiamine HCl (Vitamin B1) 100 mg PO DAILY [facility] Last Admin: 05/02/18 08:20 Dose: 100 mg Vancomycin HCl (Vancomycin Oral Meera) 250 mg PO Q6H [facility] Last Admin: 05/02/18 08:17 Dose: 250 mg Medical - PN: A/P - Time Spent With Patient Total time spent is greater than 50% in coordination of care (as documented) at patient's floor/unit and/or counseling patient: 25 - 35 minutes (1) Acute respiratory failure with hypoxia Status: Acute Assessment and plan: * Acute hypoxic Respiratory Failure- clinically improving. Ongoing physical therapy/RT assisted treatments. Continue weaning oxygen as tolerated. * Sepsis resolved. * Aspiration pneumonia clinically improved. Continue IV Zosyn.day 01/14 * C. difficile currently on vancomycin by mouth 250 qid day09/21 * Rib fracture continue incentive spirometer use. * Anemia- GI bleed -on PPI BID, Dr Juarez to do EGD, hb stable. * Alcohol Abuse- on CIWA, prn Ativan, thiamine * Hyponatremia- resolved * Pressure Ulcer- wound care * DVT hep sq * Full code Plan * Continue Zosyn for additional 24 hours for pneumonia * Continue oral vancomycin for C. difficile * Pre-existing medical condition management as above * Aggressive PT OT nutritional supplements * Possible discharge in 24-48 hours if clinically improved Current Visit: Yes
[2018-05-02] MEDS: AMOXICILLIN/POTASSIUM CLAV 875 MG TABLET PO SCH (23:46)
[2018-05-03] MEDS: ACETAMINOPHEN 325 MG TABLET PO PRN ×3 (01:22→22:18)
[2018-05-03] MEDS: VANCOMYCIN ORAL SOL 1,000 MG/10 ML BOTTLE PO SCH ×4 (01:24→21:15)
[2018-05-03] MEDS: oxyCODONE HCL 5 MG TABLET PO PRN ×5 (03:26→21:15)
[2018-05-03] MEDS: 0.9 % SODIUM CHLORIDE 10 ML SYRINGE IV SCH (06:54)
[2018-05-03] MEDS: MULTIVIT,THER IRON,CA,FA & MIN 1 TABLET PO SCH (08:04)
[2018-05-03] MEDS: THIAMINE 100 MG TABLET PO SCH (08:04)
[2018-05-03] MEDS: AMOXICILLIN/POTASSIUM CLAV 875 MG TABLET PO SCH ×2 (08:04→17:27)
[2018-05-03] MEDS: PANTOPRAZOLE 40 MG VIAL IV SCH (09:03)
--- NOTE | 2018-05-03 10:13 | Internal Med Progress Note ---
Medical - PN: Subj Patient information: Note initiated : 05/03/18 at 10:08 am Service Date, if different from initiated Date: [] Patient: Do Cantu 58 y/o F admitted on 04/24/18 for Hypokalemia, Alcohol Abuse, Rib Fractures. Chief Complaint: [] Interval history: 58-year-old female 2 weeks of weakness. had some diarrhea a week ago she was sitting in her diarrhea in the past and urine urine. she fell at some point chest x-ray showed nondisplaced fractures. she has leg pain from ulcers she has been sitting all day every day for 2 weeks. Drinks at least 6 beers throughout the day. She has an epigastric pain that she describes as a ulcer pain, toast makes it feel better spicy foods make it worse. She has a chronic cough. She managed to drive herself into the hospital because the leg pain. Was found to be covered with feces and urine. 04/25 States poor sleep, otherwise no overnight events. Denies nausea vomiting abdominal pain chest pain shortness of breath. Denies diarrhea or bleeding. Did get Ativan last evening for CIWA protocol. 04/26 Patient seen and examined, overnight events noted. Patient had been transferred to medical floor yesterday, there was no need for cardiac monitoring. This morning on my evaluation patient noted that she still had some pain but otherwise had no complaints. On examination she had some crackles on the right side of the chest, chest x-ray was ordered which showed she had new onset pneumonia bilaterally right more than the left. She was only on 2 L of oxygen and labs were stable. Blood cultures pro-calcitonin ordered, patient was started on Zosyn. Later in the morning early afternoon the patient decompensated became acutely hypoxic and cyanotic. Requiring 15 L of oxygen to maintain oxygen saturation more than 90. Chest x-ray showed worsening infiltrates, she was tachycardic. Arterial blood gas was drawn which showed a pH of 7.43 PCO2 32 PO2 64 and lactic acid of 2.3 this was done on nonrebreather. The patient was transferred to the ICU. Saline bolus was given, IV antibiotics and blood cultures already drawn. A new set of labs ordered. 04/27 Patient seen and examined, no acute overnight events, had increased oxygen needs. Maintenance fluid stopped and 20 mg of Lasix given. Patient responded well. Chest x-ray this morning shows worsening infiltrates bilaterally. Clinically patient appears more stable. Remains tachycardic tachypneic. Patient still quite uncomfortable in the morning was quite drowsy however later was alert oriented x2 complained about soreness all over speaks very softly. 04/28 Patient seen examined, no acute overnight issues, on 3-4 L oxygen via nasal canula, still quite weak, notes some epigastric, ruq pain, lft stable, elevated lft, previous USG/ Abdomen CT notes reviewed, Dr Juarez is following the patient , plan for EGD today if possible. Xfer to tele status. 04/29 Patient seen and examined, no acute overnight events, still on oxygen but clinically improving. No epigastric or abdominal pain reported had some back pain but no chest pain. Labs reviewed are stable. Dr. Morillo consult appreciated ultrasound of the abdomen reviewed 04/30 Patient seen and examined no acute overnight events, chest x-ray today shows some worsening of the pulmonary infiltrates but clinically patient appears better. She has been having diarrhea and persistent leukocytosis, C. difficile was checked is positive. Patient has been started on p.o. vancomycin. Patient notes about chronic back pain denies any other acute complaints or concerns 05/01 Patient seen examined, no acute overnight issues, tolerating po diet well, still on dysphagi diet though. She still has significant diarrhea and this is her biggest concern. Also not happy with the food (dysphagia diet) Chest x ray shows improving infiltrates labs are stable, K better, xfer to med surg status. started on banatrol she was wondering when the cocktail hour starts, 05/02-patient doing well. Improved diarrhea now for 5 episodes a day. Denies abdominal pain fever chills. Much improved breathing. No concerns expressed by nursing staff. Tolerating diet. 05/03-patient doing well. Appears anxious. Due for upper endoscopy Tuesday. No overnight events or concerns per staff. White count 12,000. No fever chills nausea vomiting. Stable hemodynamics. Ongoing physical therapy. Interval chest imaging resolving diffuse airspace disease. - Constitutional Vitals: Vital Signs Temp Pulse Resp BP Pulse Ox 97.3 F 87 20 126/70 95 05/03/18 07:02 05/03/18 07:02 05/03/18 07:02 05/03/18 07:02 05/03/18 07:02 Period Temp Pulse Resp BP Sys/Manning Pulse Ox Last 24 Hr 97.3 F-99.9 F 87-104 16-20 120-140/68-80 92-97 Intake and Output 05/02/18 05/03/18 05/03/18 21:59 05:59 13:59 Intake Total 200 / 200 967 / 967 Output Total 152 / 152 850 / 850 Balance 48 / 48 117 / 117 Weight 117 lb Intake & Output: Intake & Output 05/02/18 05/03/18 05/03/18 21:59 05:59 13:59 Intake Total 200 / 200 967 / 967 Output Total 152 / 152 850 / 850 Balance 48 / 48 117 / 117 Weight 117 lb Intake: Oral 200 / 200 967 / 967 Output: Urine Catheter Amount 50 / 50 Void Amount 100 / 100 850 / 850 # of times incontinent of urine 2 / 2 Other: Meal Dinner Yogurt Percent of Meal Consumed 50% 100% Feeding Ability Assist with Tray Set Up Independent Urine Appearance Clear Urine Color Bright Yellow Bright Yellow Urine Odor Normal Stool Size Moderate Moderate Stool Color Brown Brown Stool Consistency Loose Loose # Voids 1 # Bowel Movements 1 1 # of times incontinent of 1 Bowels General appearance: no acute distress Exam: Anxious and fidgety Nonlabored breathing Nondistressed Alert and oriented Medical - PN: Obj Da - Labs CBC & Chem 7: 05/02/18 04:09 05/02/18 04:09 Labs: Abnormal Lab Results 05/02/18 05/02/18 05/01/18 04:09 04:09 04:00 WBC 12.4 H RBC 3.23 L Hgb 9.9 L Hct 30.6 L RDW 16.2 H Plt Count 458 H MPV Gran % 83.1 H Lymph % (Auto) 10.1 L Gran # 10.3 H Lymph # (Auto) 1.3 L Carbon Dioxide 21 L Glucose 118 H Uric Acid 1.4 L 1.3 L Calcium 7.9 L 7.8 L Phosphorus 2.0 L Magnesium 1.4 L Alkaline Phosphatase 136 H 236 H Lactate Dehydrogenase 362 H 532 H Total Protein 5.0 L 4.9 L Albumin 2.0 L 2.2 L Albumin/Globulin Ratio 0.7 L 0.8 L 05/01/18 04:00 WBC 12.6 H RBC 3.30 L Hgb 10.2 L Hct 31.3 L RDW 16.2 H Plt Count MPV 7.3 L Gran % 84.8 H Lymph % (Auto) 9.4 L Gran # 10.7 H Lymph # (Auto) 1.2 L Carbon Dioxide Glucose Uric Acid Calcium Phosphorus Magnesium Alkaline Phosphatase Lactate Dehydrogenase Total Protein Albumin Albumin/Globulin Ratio Meds: Medications Acetaminophen (Tylenol) 650 mg PO Q6HP PRN PRN Reason: PAIN/FEVER > 101 Last Admin: 05/03/18 01:22 Dose: 650 mg Albuterol/Ipratropium (Duoneb) 3 ml NEB Q4HRT PRN PRN Reason: Abdominal Distention Amoxicillin/Clavulanate Potassium (Augmentin) 875 mg PO BIDCC [facility] Last Admin: 05/03/18 08:04 Dose: 875 mg Clonidine HCl (Catapres) 0.1 mg PO Q4HP PRN PRN Reason: Alcohol Withdrawal Acetaminophen (Ofirmev) 650 mg in 65 mls @ 130 mls/hr IV Q6HP PRN PRN Reason: PAIN/FEVER > 101 Iron Carb/Multivit/[place]/Folic Acid (Multivitamin W/Minerals) 1 tab PO DAILY [facility] Last Admin: 05/03/18 08:04 Dose: 1 tab Lorazepam (Ativan) 0 mg IV Q4HP PRN; Protocol PRN Reason: Alcohol Withdrawal Ondansetron HCl (Zofran) 4 mg IV Q4HP PRN PRN Reason: Nausea And Vomiting Oxycodone HCl (Roxicodone) 5 mg PO Q4HP PRN PRN Reason: Severe Pain Last Admin: 05/03/18 08:04 Dose: 5 mg Pantoprazole Sodium (Protonix) 40 mg IV BIDAC [facility] Last Admin: 05/03/18 09:03 Dose: Not Given Prochlorperazine Maleate (Compazine) 12.5 mg [place] Q12HP PRN PRN Reason: Nausea And Vomiting Promethazine HCl (Phenergan) 12.5 mg PO Q6HP PRN PRN Reason: Nausea And Vomiting Thiamine HCl (Vitamin B1) 100 mg PO DAILY [facility] Last Admin: 05/03/18 08:04 Dose: 100 mg Vancomycin HCl (Vancomycin Oral Meera) 250 mg PO Q6H [facility] Last Admin: 05/03/18 09:00 Dose: 250 mg Medical - PN: A/P - Time Spent With Patient Total time spent is greater than 50% in coordination of care (as documented) at patient's floor/unit and/or counseling patient: 15 - 24 minutes (1) Acute respiratory failure with hypoxia Status: Acute Assessment and plan: * C. difficile currently on vancomycin by mouth 250 qid day 4 * Anemia- GI bleed -on PPI BID, Dr Juarez will perform upper endoscopy on Tuesday * Alcohol Abuse- on CIWA, prn Ativan, thiamine * Acute hypoxic Respiratory Failure- clinically resolved on room air now * Sepsis resolved. White count 12,000 * Aspiration pneumonia clinically resolved on interval imaging. DC antibiotics in 24 hours. On oral Augmentin * Rib fracture - continue incentive spirometer use * Hyponatremia- resolved * Pressure Ulcer- continue wound care * DVT hep sq * Full code Plan * Continue Augmentin for additional 24 hours for pneumonia * Continue oral vancomycin for C. difficile * Pre-existing medical condition management as above * Aggressive PT OT, nutritional supplements to continue * Discharge post upper endoscopy * Upper endoscopy and Tuesday, hold heparin prior to endoscopy Current Visit: Yes
[2018-05-03] MEDS: PANTOPRAZOLE 40 MG TABLET PO SCH (17:28)
[2018-05-04] MEDS: oxyCODONE HCL 5 MG TABLET PO PRN ×5 (01:59→21:47)
[2018-05-04] MEDS: VANCOMYCIN ORAL SOL 1,000 MG/10 ML BOTTLE PO SCH ×4 (02:30→19:46)
[2018-05-04] MEDS: MULTIVIT,THER IRON,CA,FA & MIN 1 TABLET PO SCH (08:56)
[2018-05-04] MEDS: AMOXICILLIN/POTASSIUM CLAV 875 MG TABLET PO SCH (08:56)
[2018-05-04] MEDS: THIAMINE 100 MG TABLET PO SCH (08:56)
[2018-05-04] MEDS: PANTOPRAZOLE 40 MG TABLET PO SCH ×2 (08:58→16:55)
[2018-05-04] MEDS: ACETAMINOPHEN 325 MG TABLET PO PRN ×2 (09:31→21:46)
--- NOTE | 2018-05-04 10:29 | Internal Med Progress Note ---
Medical - PN: Subj Patient information: Note initiated : 05/04/18 at 10:27 am Service Date, if different from initiated Date: [] Patient: Do Cantu 58 y/o F admitted on 04/24/18 for Hypokalemia, Alcohol Abuse, Rib Fractures. Chief Complaint: [] Interval history: 58-year-old female 2 weeks of weakness. had some diarrhea a week ago she was sitting in her diarrhea in the past and urine urine. she fell at some point chest x-ray showed nondisplaced fractures. she has leg pain from ulcers she has been sitting all day every day for 2 weeks. Drinks at least 6 beers throughout the day. She has an epigastric pain that she describes as a ulcer pain, toast makes it feel better spicy foods make it worse. She has a chronic cough. She managed to drive herself into the hospital because the leg pain. Was found to be covered with feces and urine. 04/25 States poor sleep, otherwise no overnight events. Denies nausea vomiting abdominal pain chest pain shortness of breath. Denies diarrhea or bleeding. Did get Ativan last evening for CIWA protocol. 04/26 Patient seen and examined, overnight events noted. Patient had been transferred to medical floor yesterday, there was no need for cardiac monitoring. This morning on my evaluation patient noted that she still had some pain but otherwise had no complaints. On examination she had some crackles on the right side of the chest, chest x-ray was ordered which showed she had new onset pneumonia bilaterally right more than the left. She was only on 2 L of oxygen and labs were stable. Blood cultures pro-calcitonin ordered, patient was started on Zosyn. Later in the morning early afternoon the patient decompensated became acutely hypoxic and cyanotic. Requiring 15 L of oxygen to maintain oxygen saturation more than 90. Chest x-ray showed worsening infiltrates, she was tachycardic. Arterial blood gas was drawn which showed a pH of 7.43 PCO2 32 PO2 64 and lactic acid of 2.3 this was done on nonrebreather. The patient was transferred to the ICU. Saline bolus was given, IV antibiotics and blood cultures already drawn. A new set of labs ordered. 04/27 Patient seen and examined, no acute overnight events, had increased oxygen needs. Maintenance fluid stopped and 20 mg of Lasix given. Patient responded well. Chest x-ray this morning shows worsening infiltrates bilaterally. Clinically patient appears more stable. Remains tachycardic tachypneic. Patient still quite uncomfortable in the morning was quite drowsy however later was alert oriented x2 complained about soreness all over speaks very softly. 04/28 Patient seen examined, no acute overnight issues, on 3-4 L oxygen via nasal canula, still quite weak, notes some epigastric, ruq pain, lft stable, elevated lft, previous USG/ Abdomen CT notes reviewed, Dr Juarez is following the patient , plan for EGD today if possible. Xfer to tele status. 04/29 Patient seen and examined, no acute overnight events, still on oxygen but clinically improving. No epigastric or abdominal pain reported had some back pain but no chest pain. Labs reviewed are stable. Dr. Morillo consult appreciated ultrasound of the abdomen reviewed 04/30 Patient seen and examined no acute overnight events, chest x-ray today shows some worsening of the pulmonary infiltrates but clinically patient appears better. She has been having diarrhea and persistent leukocytosis, C. difficile was checked is positive. Patient has been started on p.o. vancomycin. Patient notes about chronic back pain denies any other acute complaints or concerns 05/01 Patient seen examined, no acute overnight issues, tolerating po diet well, still on dysphagi diet though. She still has significant diarrhea and this is her biggest concern. Also not happy with the food (dysphagia diet) Chest x ray shows improving infiltrates labs are stable, K better, xfer to med surg status. started on banatrol she was wondering when the cocktail hour starts, 05/02-patient doing well. Improved diarrhea now for 5 episodes a day. Denies abdominal pain fever chills. Much improved breathing. No concerns expressed by nursing staff. Tolerating diet. 05/03-patient doing well. Appears anxious. Due for upper endoscopy Tuesday. No overnight events or concerns per staff. White count 12,000. No fever chills nausea vomiting. Stable hemodynamics. Ongoing physical therapy. Interval chest imaging resolving diffuse airspace disease. 05/04- patient doing well. No overnight events. No concerns per staff except for oral previous day without significant injuries. Due for upper endoscopy in 24 hours. Good appetite. Still unsteady however undergoing physical therapy. Denies chest pain shortness of breath fever chills. No family at bedside. Labs stable - Constitutional Vitals: Vital Signs Temp Pulse Resp BP Pulse Ox 97.9 F 79 18 132/73 96 05/04/18 08:00 05/04/18 08:00 05/04/18 08:00 05/04/18 08:00 05/04/18 09:00 Period Temp Pulse Resp BP Sys/Manning Pulse Ox Last 24 Hr 97.8 F-98.7 F 79-101 18-20 122-156/62-86 92-97 Intake and Output 05/03/18 05/04/18 05/04/18 21:59 05:59 13:59 Intake Total 480 / 480 1050 / 1050 Output Total 1106 / 1106 402 / 402 Balance -626 / -626 648 / 648 Weight 120 lb Intake & Output: Intake & Output 05/03/18 05/04/18 05/04/18 21:59 05:59 13:59 Intake Total 480 / 480 1050 / 1050 Output Total 1106 / 1106 402 / 402 Balance -626 / -626 648 / 648 Weight 120 lb Intake: Oral 480 / 480 1050 / 1050 Output: Void Amount 755 / 755 400 / 400 # of times incontinent of urine 1 / 1 2 / 2 Urine/Stool Mix 350 / 350 Other: Meal Dinner [place] Percent of Meal Consumed 100% 100% Feeding Ability Independent Independent Urine Appearance Clear Clear Clear Urine Color Bright Yellow Bright Yellow Bright Yellow Urine Odor Normal Normal Normal Stool Size Moderate Small Small Stool Color Brown Brown Brown Stool Consistency Soft Soft Soft Loose Loose # Voids 1 1 1 # Bowel Movements 1 1 1 General appearance: no acute distress Exam: Alert oriented nonlabored breathing No anxiety No Significant change since previous day Medical - PN: Obj Da - Labs CBC & Chem 7: 05/02/18 04:09 05/02/18 04:09 Labs: Abnormal Lab Results 05/02/18 05/02/18 04:09 04:09 WBC 12.4 H RBC 3.23 L Hgb 9.9 L Hct 30.6 L RDW 16.2 H Plt Count 458 H Gran % 83.1 H Lymph % (Auto) 10.1 L Gran # 10.3 H Lymph # (Auto) 1.3 L Carbon Dioxide 21 L Uric Acid 1.4 L Calcium 7.9 L Magnesium 1.4 L Alkaline Phosphatase 136 H Lactate Dehydrogenase 362 H Total Protein 5.0 L Albumin 2.0 L Albumin/Globulin Ratio 0.7 L Meds: Medications Acetaminophen (Tylenol) 650 mg PO Q6HP PRN PRN Reason: PAIN/FEVER > 101 Last Admin: 05/04/18 09:31 Dose: 650 mg Albuterol/Ipratropium (Duoneb) 3 ml NEB Q4HRT PRN PRN Reason: Abdominal Distention Amoxicillin/Clavulanate Potassium (Augmentin) 875 mg PO BIDCC [facility] Last Admin: 05/04/18 08:56 Dose: 875 mg Clonidine HCl (Catapres) 0.1 mg PO Q4HP PRN PRN Reason: Alcohol Withdrawal Acetaminophen (Ofirmev) 650 mg in 65 mls @ 130 mls/hr IV Q6HP PRN PRN Reason: PAIN/FEVER > 101 Iron Carb/Multivit/[place]/Folic Acid (Multivitamin W/Minerals) 1 tab PO DAILY [facility] Last Admin: 05/04/18 08:56 Dose: 1 tab Lorazepam (Ativan) 0 mg IV Q4HP PRN; Protocol PRN Reason: Alcohol Withdrawal Ondansetron HCl (Zofran) 4 mg IV Q4HP PRN PRN Reason: Nausea And Vomiting Oxycodone HCl (Roxicodone) 5 mg PO Q4HP PRN PRN Reason: Severe Pain Last Admin: 05/04/18 06:34 Dose: 5 mg Pantoprazole Sodium (Protonix) 40 mg PO BIDAC [facility] Last Admin: 05/04/18 08:58 Dose: 40 mg Prochlorperazine Maleate (Compazine) 12.5 mg [place] Q12HP PRN PRN Reason: Nausea And Vomiting Promethazine HCl (Phenergan) 12.5 mg PO Q6HP PRN PRN Reason: Nausea And Vomiting Thiamine HCl (Vitamin B1) 100 mg PO DAILY [facility] Last Admin: 05/04/18 08:56 Dose: 100 mg Vancomycin HCl (Vancomycin Oral Meera) 250 mg PO Q6H [facility] Last Admin: 05/04/18 08:56 Dose: 250 mg Medical - PN: A/P - Time Spent With Patient Total time spent is greater than 50% in coordination of care (as documented) at patient's floor/unit and/or counseling patient: 15 - 24 minutes (1) Acute respiratory failure with hypoxia Status: Acute Assessment and plan: * CChandana difficile currently on vancomycin by mouth 250 qid day 4 * Anemia- GI bleed -on PPI BID, Dr Juarez will perform upper endoscopy on 05/05 * Alcohol Abuse- on CIWA, prn Ativan, thiamine * Acute hypoxic Respiratory Failure- clinically resolved on room air now * Sepsis resolved. White count 12,000 * Aspiration pneumonia clinically resolved on interval imaging. * Rib fracture - continue incentive spirometer use * Hyponatremia- resolved * Pressure Ulcer- continue wound care * DVT hep sq * Full code Plan * DC Augmentin * Continue oral vancomycin for C. difficile * Pre-existing medical condition management as above * Aggressive PT OT, nutritional supplements to continue * Upper endoscopy on 05/05 , * Hold heparin prior to endoscopy Current Visit: Yes
[2018-05-04 11:16] LABS: Mean Cell Volume 92.2 fL (80.0-100.0); Mean Corpuscular HGB Conc 34.3 g/dL (31.0-36.0); Mean Corpuscular Hemoglobin 31.7 pg (26.0-34.0); Platelet Count 600 K/mcL (140-440); Red Cell Distribution Width 16.1 % (11.5-14.5)
[2018-05-04 11:37] LABS: ALT/SGPT 9 U/l (0-40); Albumin 2.3 gm/dL (3.2-5.2); Albumin/Globulin Ratio 0.7 (1.0-2.3); Alkaline Phosphatase 96 U/L (39-117); Bilirubin,Direct < 0.2 mg/dL (0.0-0.3); Blood Urea Nitrogen 8 mg/dl (6-20); Gamma Glutamyl Transpeptidase 22 U/L (5-36); Uric Acid 2.5 mg/dL (2.5-8.0)
[2018-05-04 12:05] LABS: Anisocytosis 1+ (NONE SEEN); Band Neutrophils % 1 % (0-10); Basophils % (Manual) 1 % (0-2); Lymphocytes % 21 % (15-49); Monocytes % (Manual) 1 % (1-12); Platelet Estimate INCREASED (NORMAL); RBC Morphology ABNORM (NORMAL); Segmented Neutrophils % 76 % (38-78)
[2018-05-04] MEDS ORDERED: MAGNESIUM SULFATE 2 GM/50 ML BAG IV PRN (13:20)
--- NOTE | 2018-05-04 19:00 | General Surgery Progress Note ---
Subjective Patient reports: no new complaints, still having pain, tolerating a regular diet , bowel movement, afebrile Narrative: Note initiated : 05/04/18 at 6:57 pm Service Date, if different from initiated Date: [] Patient: Do Cantu 58 y/o F admitted on 04/24/18 for Hypokalemia, Alcohol Abuse, Rib Fractures. Chief Complaint: [patient is significantly improved over the past [address] Palma the plan to proceed with upper endoscopy and he is agreeable that her status is stable enough that it can be scheduled for tomorrow.. Patient is still significantly disoriented but this is probably her baseline. She however does remember that we talked about upper endoscopy early in the week and she is agreeable to proceed.] Objective Temp Pulse Resp BP Pulse Ox 98.0 F 86 18 140/76 97 05/04/18 16:00 05/04/18 16:00 05/04/18 16:00 05/04/18 16:00 05/04/18 16:00 - Additional Data Intake & Output - Last 24 hours: Intake & Output 05/02/18 05/03/18 05/04/18 05/05/18 05:59 05:59 05:59 05:59 Intake Total 2774 / 2774 1267 / 1267 1530 / 1530 1590 / 1590 Output Total 1560 / 1560 2026 / 2026 1608 / 1608 600 / 600 Balance 1214 / 1214 -760 / -760 -78 / -78 990 / 990 Weight 119 lb 8 oz 117 lb 120 lb - General physical appearance no distress, chronically ill - ENT normal pinna, normal nares, normal mucosa, no hearing loss, no congestion - Neck no masses, no bruits, trachea midline, no lymphadectomy, no venous distension - Respiratory normal expansion, normal respiratory effort, clear to auscultation - Cardiovascular Cardiovascular exam: Present: normal rate and rhythm, RRR, +S1, +S2. Absent: JVD, tachycardia - Abdomen non tender, bowel sounds (present), surgical scars (none), masses (none) - Integumentary no rash, no growths, no abnormal pigmentation, other (healing abrasions of flow posterior legs bilaterally) - Neurologic confused - Musculoskeletal other ( unsteady gait) - Psychiatric oriented to person, speech is normal - Labs 10/25/18 10:28 05/04/18 10:28 Diabetes panel 05/04/18 Range/Units 10:28 Sodium 135 (133-145) mmol/L Potassium 3.9 (3.3-5.1) mmol/L Chloride 100 (96-108) mmol/L Carbon Dioxide 23 (22-30) mmol/L BUN 8 (6-20) mg/dl Creatinine 0.7 (0.6-1.1) mg/dl Glucose 119 H (70-105) mg/dL Calcium 8.4 L (8.6-10.4) mg/dl AST 14 (0-37) U/l ALT 9 (0-40) U/l Alkaline Phosphatase 96 (39-117) U/L Total Protein 5.7 L (5.9-8.4) gm/dL Albumin 2.3 L (3.2-5.2) gm/dL Triglycerides 145 (<150) mg/dl Calcium panel 05/04/18 Range/Units 10:28 Calcium 8.4 L (8.6-10.4) mg/dl Phosphorus 3.9 (2.7-4.5) mg/dL Albumin 2.3 L (3.2-5.2) gm/dL Pituitary panel 05/04/18 Range/Units 10:28 Sodium 135 (133-145) mmol/L Potassium 3.9 (3.3-5.1) mmol/L Chloride 100 (96-108) mmol/L Carbon Dioxide 23 (22-30) mmol/L BUN 8 (6-20) mg/dl Creatinine 0.7 (0.6-1.1) mg/dl Glucose 119 H (70-105) mg/dL Calcium 8.4 L (8.6-10.4) mg/dl Adrenal panel 05/04/18 Range/Units 10:28 Sodium 135 (133-145) mmol/L Potassium 3.9 (3.3-5.1) mmol/L Chloride 100 (96-108) mmol/L Carbon Dioxide 23 (22-30) mmol/L BUN 8 (6-20) mg/dl Creatinine 0.7 (0.6-1.1) mg/dl Glucose 119 H (70-105) mg/dL Calcium 8.4 L (8.6-10.4) mg/dl Total Bilirubin < 0.2 (0.0-1.0) mg/dL AST 14 (0-37) U/l ALT 9 (0-40) U/l Alkaline Phosphatase 96 (39-117) U/L Total Protein 5.7 L (5.9-8.4) gm/dL Albumin 2.3 L (3.2-5.2) gm/dL Assessment and Plan (1) GI (gastrointestinal hemorrhage) Status: Acute Assessment and plan: Patient has stabilized and recovered from her severe comorbidities.. She is stable for upper endoscopy tomorrow Current Visit: Yes (2) Chronic blood loss anemia Status: Chronic Assessment and plan: Clinically stable Current Visit: Yes (3) Alcohol withdrawal syndrome Status: Chronic Assessment and plan: Significantly improved over the past 5 days Current Visit: Yes (4) Pressure ulcer Status: Acute Current Visit: Yes (5) Ribs, multiple fractures Status: Chronic Current Visit: Yes (6) Alcohol abuse Status: Chronic Current Visit: No - Time Spent With Patient Total time spent is greater than 50% in coordination of care (as documented) at patient's floor/unit and/or counseling patient:
[2018-05-05] MEDS: VANCOMYCIN ORAL SOL 1,000 MG/10 ML BOTTLE PO SCH (02:21)
== END 2018-05-05 06:55 | disposition left against medical advice (07) | DRG 871 ==
LOC: ED 09:40 → ICU 14:14 → MEDSUR 04-25 16:35 → ICU 04-26 14:55 → MEDSUR 05-01 10:57
PROVIDERS: ADMIT Internal Medicine; ATTEND Internal Medicine
CPT/HCPCS: 80047; 84145; 85014; 87324; 87449; 97161; 97167; 99223; 99231; 99291; A6197; A6213; A6250; G8996; G8997; G8998; J0131; J0610; J0696; J1940; J2060; J2270; J2405; J2543; J3411; J3475; J3480; J7030; J7050; J7060; J7070; J7120; J7620; J7620-GY

== ENCOUNTER 2018-12-06 23:38 | Inpatient (IN) ==
[2018-12-06] MEDS ORDERED: 0.9 % SODIUM CHLORIDE 1,000 ML IV ONE (23:45)
[2018-12-06] MEDS ORDERED: ONDANSETRON 4 MG/2 ML VIAL IV ONE (23:45)
[2018-12-06] MEDS ORDERED: LORazepam 2 MG/ML VIAL IV ONE (23:48)
[2018-12-07 00:48] LABS: Alcohol, Blood < 10.0 mg/dL (<10); Alcohol,Blood < 0.010 gm/dl (<0.010)
[2018-12-07 00:51] LABS: Hematocrit 23.8 % (36.0-48.0); Hemoglobin 7.4 g/dL (12.0-15.0); Mean Cell Volume 82.4 fL (80.0-100.0); Mean Corpuscular HGB Conc 31.1 g/dL (31.0-36.0); Mean Platelet Volume 8.1 fL (7.4-10.4); Platelet Count 115 K/mcL (140-440); RBC 2.89 M/mcL (4.00-5.20); Red Cell Distribution Width 21.8 % (11.5-14.5); WBC 6.1 K/mcL (4.5-11.0)
[2018-12-07 01:05] LABS: ALT/SGPT 41 U/l (0-40); AST/SGOT 95 U/l (0-37); Albumin 4.1 gm/dL (3.2-5.2); Albumin/Globulin Ratio 1.6 (1.0-2.3); Alkaline Phosphatase 140 U/L (39-117); Bilirubin,Total 1.1 mg/dL (0.0-1.0); Blood Urea Nitrogen 13 mg/dl (6-20); Calcium 8.9 mg/dl (8.6-10.4); Carbon Dioxide 19 mmol/L (22-30); Chloride 94 mmol/L (96-108); Globulin 2.6 gm/dL (2.2-3.7); Glomerular Filtration Rate 70; Glucose 179 mg/dL (70-105); Potassium 3.6 mmol/L (3.3-5.1); Sodium 138 mmol/L (133-145)
[2018-12-07] MEDS ORDERED: 0.9 % SODIUM CHLORIDE 1,000 ML IV ONE (01:24)
[2018-12-07 01:40] LABS: Basophils % (Auto) 0 % (0.0-2.0); Eosinophils % (Auto) 0 % (0.0-7.0); Monocytes % (Auto) 0 % (1.0-12.0)
[2018-12-07 01:42] LABS: Appearance,Urine CLOUDY; Bacteria,Urine 0 /hpf (0); Bilirubin,Urine NEG (NEG); Color,Urine YELLOW; Culture Indicated,Urine YES; Glucose,Urine (UA) NEGATIVE (NEG); Ketones,Urine NEG (NEG); Leukocyte Esterase,Urine 500 /uL (NEG); Mucus,Urine FEW /hpf (0); Nitrate,Urine NEG (NEG); Protein,Urine 30 mg/dL (NEG); Specific Gravity,Urine 1.011 (1.000-1.035); Urine Blood 0.03 mg/dL (<0.03); Urine RBC 18 /hpf (0-1); Urine Squamous Epithelial Cell 0 /hpf (0-4); Urine WBC > 182 /hpf (0-4); Urobilinogen,Urine NEG (NEG)
[2018-12-07] MEDS ORDERED: LORazepam 2 MG/ML VIAL IV ONE (04:04)
[2018-12-07 04:47] LABS: Blood Urea Nitrogen 10 mg/dl (6-20); Calcium 8.2 mg/dl (8.6-10.4); Carbon Dioxide 22 mmol/L (22-30); Chloride 99 mmol/L (96-108); Glomerular Filtration Rate 95; Glucose 115 mg/dL (70-105); Potassium 4.3 mmol/L (3.3-5.1); Sodium 136 mmol/L (133-145)
[2018-12-07] MEDS ORDERED: LEVOFLOXACIN 750 MG/150 ML BAG IV ONE (05:41)
--- NOTE | 2018-12-07 06:41 | Emergency Department Note ---
General Adult HPI - General Chief complaint: Weakness Stated complaint: weakness, diarrhea, dry heaving, shaky Time Seen by Provider: 12/06/18 23:44 Source: patient, EMS Mode of arrival: EMS Limitations: no limitations - History of Present Illness HPI Narrative: This patient has had nausea and vomiting since yesterday with one episode of diarrhea. She also is weak and shaky in general. She does drink alcohol daily in the form of whiskey but did not drink yesterday due to her illness. We gave her some Ativan and actually improved her shaking is quite a bit. - Related Data Home Medications Medication Instructions Recorded Confirmed Calcium Acetate [Phoslo] 667 mg PO TIDCC 04/24/18 04/24/18 Furosemide [Lasix] 40 mg PO DAILY 04/24/18 04/24/18 Lisinopril [Zestril] 2.5 mg PO BID 04/24/18 04/24/18 Previous Rx's Medication Instructions Recorded Ferrous Sulfate 325 mg PO TIDCC tablet 01/24/18 Folic Acid 1 mg PO DAILY tablet 01/24/18 Multivit,Ther Iron,Ca,FA & Min 1 tab PO DAILY tablet 01/24/18 [Multivitamin W/Minerals] Thiamine [Vitamin B1] 100 mg PO QDAY #0 tablet 01/24/18 Ondansetron [Zofran ODT] 4 mg SL Q4-6HP PRN #10 tab 02/08/18 Allergies Allergy/AdvReac Type Severity Reaction Status Date / Time clarithromycin [From Biaxin] AdvReac Mild Vomiting Verified 12/06/18 23:42 Review of Systems All systems ED: reviewed and negative except as stated. Past Medical History - Past Medical History PMFSH Narrative: Medical History (Last Updated 02/09/18 @ 20:06 by Angela Mora MD) Alcohol abuse (Acute) Alcoholic hepatitis without ascites (Acute) Diastolic dysfunction (Acute) Frequent falls (Acute) GERD (gastroesophageal reflux disease) (Acute) Hypokalemia (Acute) Hypomagnesemia (Acute) Hyponatremia (Acute) Malnutrition (Acute) Normocytic anemia (Acute) Osteoarthritis (Acute) Peptic ulcer disease (Acute) Pneumonia (Acute) Ribs, multiple fractures (Acute) Past Surgical History (Last Updated 02/09/18 @ 20:01 by Angela Mora MD) H/O knee surgery (Acute) H/O tubal ligation (Acute) Family History (Last Updated 02/09/18 @ 19:39 by Angela Mora MD) Mother Stroke Medical history: Reports: CHF, GERD, renal disease, other (malnutrition, failure to thrive, ETOH abuse, anemia, electrolyte imbalance,rhabdo,falls, PNA) Psychiatric history: Reports: anxiety, depression Surgical history ED: Reports: orthopedic, other (knee), tubal ligation - Social History smoking status: Current every day smoker Alcohol use: Reports: Daily, Heavy Drug use: Reports: none Physical Exam Limitations: no limitations General appearance: alert Head: atraumatic Eye: Present: normal appearance ENT: normal exam Neck: Present: normal inspection Chest: Present: normal inspection Respiratory: Present: normal lung sounds bilaterally Cardiovascular: Present: regular rate, normal rhythm, normal heart sounds Abdominal: Present: soft. Absent: distention, tenderness Neurological: Present: alert Psychiatric: Present: normal affect Skin: Present: warm, dry Course Vital Signs Temperature 98.6 F 12/06/18 23:39 Pulse Rate 89 12/06/18 23:39 Respiratory Rate 20 12/06/18 23:39 Pulse Oximetry (%) 96 12/06/18 23:39 Temperature 99.0 F 12/07/18 05:38 Pulse Rate 101 H 12/07/18 08:00 Respiratory Rate 19 12/07/18 08:08 Blood Pressure 113/63 12/07/18 08:00 Pulse Oximetry (%) 95 12/07/18 08:00 Medical Decision Making - [facility] Narrative Medical decision making narrative: This patient does have a urinary tract infection and anemia. Stool guaiac was negative she has not vomited any blood. She has had anemia in the past and required blood transfusions. We gave her some Levaquin and I think she will need to be admitted observation. Dr. Palma will do the admission. - Lab Data Lab results reviewed: Yes I reviewed the patient's lab results. Result diagrams: 12/06/18 23:50 12/07/18 03:25 Lab Results 12/06/18 12/06/18 12/06/18 Range/Units 23:50 23:50 23:50 WBC 6.1 (4.5-11.0) K/mcL RBC 2.89 L (4.00-5.20) M/mcL Hgb 7.4 L (12.0-15.0) g/dL Hct 23.8 L (36.0-48.0) % MCV 82.4 (80.0-100.0) fL MCH 25.6 L (26.0-34.0) pg MCHC 31.1 (31.0-36.0) g/dL RDW 21.8 H (11.5-14.5) % Plt Count 115 L (140-440) K/mcL MPV 8.1 (7.4-10.4) fL Gran % 80.0 H (38.0-78.0) % Lymph % (Auto) 20.0 (15.5-49.0) % [place] % (Auto) 0 L (1.0-12.0) % Eos % (Auto) 0 (0.0-7.0) % Baso % (Auto) 0 (0.0-2.0) % Sodium 138 (133-145) mmol/L Potassium 3.6 (3.3-5.1) mmol/L Chloride 94 L (96-108) mmol/L Carbon Dioxide 19 L (22-30) mmol/L Anion Gap 25.0 H (8-16) BUN 13 (6-20) mg/dl Creatinine 0.9 (0.6-1.1) mg/dl GFR Calculation 70 Glucose 179 H (70-105) mg/dL Calcium 8.9 (8.6-10.4) mg/dl Total Bilirubin 1.1 H (0.0-1.0) mg/dL AST 95 H (0-37) U/l ALT 41 H (0-40) U/l Alkaline Phosphatase 140 H (39-117) U/L Total Protein 6.7 (5.9-8.4) gm/dL Albumin 4.1 (3.2-5.2) gm/dL Globulin 2.6 (2.2-3.7) gm/dL Albumin/Globulin Ratio 1.6 (1.0-2.3) Urine Color Urine Appearance Urine pH (5.0-9.0) Ur Specific [place] (1.000-1.035) Urine Protein (NEG) mg/dL Urine Glucose (UA) (NEG) mg/dL Urine Ketones (NEG) mg/dL Urine Occult Blood (<0.03) mg/dL Urine Nitrate (NEG) Urine Bilirubin (NEG) mg/dL Urine Urobilinogen (NEG) mg/dL Ur Leukocyte Esterase (NEG) /uL Urine RBC (0-1) /hpf Urine WBC (0-4) /hpf Ur Squamous Epith Cells (0-4) /hpf Urine Bacteria (0) /hpf Urine Mucus (0) /hpf Ur Culture Indicated? Ethyl Alcohol < 0.010 (<0.010) gm/dl 12/07/18 12/07/18 Range/Units 00:45 03:25 WBC (4.5-11.0) K/mcL RBC (4.00-5.20) M/mcL Hgb (12.0-15.0) g/dL Hct (36.0-48.0) % MCV (80.0-100.0) fL MCH (26.0-34.0) pg MCHC (31.0-36.0) g/dL RDW (11.5-14.5) % Plt Count (140-440) K/mcL MPV (7.4-10.4) fL Gran % (38.0-78.0) % Lymph % (Auto) (15.5-49.0) % [place] % (Auto) (1.0-12.0) % Eos % (Auto) (0.0-7.0) % Baso % (Auto) (0.0-2.0) % Sodium 136 (133-145) mmol/L Potassium 4.3 (3.3-5.1) mmol/L Chloride 99 (96-108) mmol/L Carbon Dioxide 22 (22-30) mmol/L Anion Gap 15.0 (8-16) BUN 10 (6-20) mg/dl Creatinine 0.7 (0.6-1.1) mg/dl GFR Calculation 95 Glucose 115 H (70-105) mg/dL Calcium 8.2 L (8.6-10.4) mg/dl Total Bilirubin (0.0-1.0) mg/dL AST (0-37) U/l ALT (0-40) U/l Alkaline Phosphatase (39-117) U/L Total Protein (5.9-8.4) gm/dL Albumin (3.2-5.2) gm/dL Globulin (2.2-3.7) gm/dL Albumin/Globulin Ratio (1.0-2.3) Urine Color Yellow Urine Appearance Cloudy Urine pH 6.0 (5.0-9.0) Ur Specific [place] 1.011 (1.000-1.035) Urine Protein 30 A (NEG) mg/dL Urine Glucose (UA) Negative (NEG) mg/dL Urine Ketones Neg (NEG) mg/dL Urine Occult Blood 0.03 A (<0.03) mg/dL Urine Nitrate Neg (NEG) Urine Bilirubin Neg (NEG) mg/dL Urine Urobilinogen Neg (NEG) mg/dL Ur Leukocyte Esterase 500 A (NEG) /uL Urine RBC 18 H (0-1) /hpf Urine WBC > 182 H (0-4) /hpf Ur Squamous Epith Cells 0 (0-4) /hpf Urine Bacteria 0 (0) /hpf Urine Mucus Few (0) /hpf Ur Culture Indicated? Yes Ethyl Alcohol (<0.010) gm/dl Disposition Pt seen by DELI CLERK/PA only: No Clinical Impression: UTI (urinary tract infection), Anemia, Gastritis, Alcohol abuse Disposition: Xfer As Outpt/Obs ([facility]) Condition: Fair Referrals: Nahum Munoz PA-C [Primary Care Provider] - Time of Disposition: 08:12
--- NOTE | 2018-12-07 08:18 | Internal Med History&Physical ---
Medical - H&P: [facility] Patient information: Note initiated : 12/07/18 at 8:16 am Service Date, if different from initiated Date: [] Patient: Do Cantu a 58 y/o F admitted on for Weakness, Diarrhea, Dry Heaving, Shaky. Chief Complaint: [] Chief complaint: weakness, shaking, nausea History of present illness: Ms. Cantu is a 58 year old F history of chronic alcoholism presents to the ER with increasing generalized weakness along with nausea that has progressed over the last few days. Patient frequently drinks whiskey but has not taken it in 24 hours due to persistent nausea. She also had an episode of diarrhea. She denies subjective fever, headache, lightheadedness, chest palpitation. She further denies changes in medications, falls. Initial workup in the ER was consistent with pyuria/UTI along with volume depletion and signs of alcohol withdrawal CIWA score 11. Patient was started on lorazepam along with crystalloids and Hospitalist service was subsequently consulted for admission in light of above. At the time evaluation patient is fidgety and anxious and shaky. She is able to answer some questions. She lives alone and has not been able to take care of herself. She consumes 6-8 drinks of whiskey daily. Review of systems 10 point review of systems was performed and is negative except as above Medical - H&P: PMH Medical history: Congestive heart failure Gastroesophageal reflux disease History of renal failure Malnutrition with failure to thrive Alcohol abuse Anemia of chronic disease Anxiety with depression Alcoholic hepatitis. History of multiple rib fractures History of alcohol-induced coagulopathy Past surgical history: Left knee surgery Tubal ligation Past family history: History of colon cancer Past social history: Everyday smoker Everyday drinker Lives alone No history of drug use Medical - H&P: Meds Home Medications Medication Instructions Recorded Confirmed Type Ferrous Sulfate 325 mg PO TIDCC tablet 01/24/18 04/24/18 Rx Folic Acid 1 mg PO DAILY tablet 01/24/18 04/24/18 Rx Multivit,Ther Iron,Ca,FA & Min 1 tab PO DAILY tablet 01/24/18 04/24/18 Rx [Multivitamin W/Minerals] Thiamine [Vitamin B1] 100 mg PO QDAY #0 tablet 01/24/18 04/24/18 Rx Ondansetron [Zofran ODT] 4 mg SL Q4-6HP PRN #10 tab 02/08/18 04/24/18 Rx Calcium Acetate [Phoslo] 667 mg PO TID 04/24/18 12/07/18 History Furosemide [Lasix] 40 mg PO DAILY 04/24/18 12/07/18 History Lisinopril [Zestril] 2.5 mg PO BID 04/24/18 12/07/18 History HYDROcodone/APAP 5/325MG [[place] 1 tab PO Q4HP PRN 12/07/18 12/07/18 History 5-325Mg] Omeprazole [PriLOSEC] 2 cap PO BID 12/07/18 12/07/18 History Potassium Chloride [Klor-Con M20] 20 meq PO DAILY 12/07/18 12/07/18 History Allergies Allergy/AdvReac Type Severity Reaction Status Date / Time clarithromycin [From Biaxin] AdvReac Mild Vomiting Verified 12/06/18 23:42 Medical - H&P: Exam - Constitutional Vitals: Temp Pulse Resp BP Pulse Ox 99.0 F 101 H 19 113/63 95 12/07/18 05:38 12/07/18 08:00 12/07/18 08:08 12/07/18 08:00 12/07/18 08:00 General appearance: moderate distress (anxious and) Exam: Alert but anxious Head normocephalic Oral cavity dry No scleral icterus No ear nose discharge Neck no lymphadenopathy S1-S2 regular rhythm no murmur Diminished breath sounds bilateral bases Abdomen soft nontender Skin no suspicious lesion Psych alert cooperative but anxious Neuro nonfocal Medical - H&P: Reslt - Labs CBC & Chem 7: 12/06/18 23:50 12/07/18 03:25 Labs: Short CBC 12/06/18 Range/Units 23:50 WBC 6.1 (4.5-11.0) K/mcL Hgb 7.4 L (12.0-15.0) g/dL Hct 23.8 L (36.0-48.0) % Plt Count 115 L (140-440) K/mcL BMP 12/06/18 12/07/18 23:50 03:25 Sodium 138 136 Potassium 3.6 4.3 Chloride 94 L 99 Carbon Dioxide 19 L 22 BUN 13 10 Creatinine 0.9 0.7 Glucose 179 H 115 H Calcium 8.9 8.2 L Liver Function 12/06/18 Range/Units 23:50 Total Bilirubin 1.1 H (0.0-1.0) mg/dL AST 95 H (0-37) U/l ALT 41 H (0-40) U/l Alkaline Phosphatase 140 H (39-117) U/L Albumin 4.1 (3.2-5.2) gm/dL Urine 12/07/18 Range/Units 00:45 Urine Color Yellow Urine Appearance Cloudy Urine pH 6.0 (5.0-9.0) Ur Specific [place] 1.011 (1.000-1.035) Urine Protein 30 A (NEG) mg/dL Urine Glucose (UA) Negative (NEG) mg/dL Medical - H&P: A/P (1) UTI (urinary tract infection) Current visit: Yes Status: Acute * Complicated UTI-start antibiotic coverage. Renal ultrasound to rule out nephrolithiasis * Volume depletion-continue crystalloids * Alcohol withdrawal/alcohol abuse-oral Librium/alcohol. Patient does not express desire to quit * Weakness/deconditioning-aggressive PT OT/nutrition support * Protein calorie malnutrition-nutrition support with high-protein calorie supp lements * Microcytic anemia-history of iron deficiency start IV iron infusion * Alcoholic liver disease with elevated LFTs * History of hypertension restart lisinopril * Full code * Prophylaxis heparin Plan * Inpatient admission in light of alcohol withdrawal and close monitoring of hemodynamics * Antibiotic coverage * PT OT and nutrition support * Crystalloids * Benzodiazepines for withdrawal symptoms * IV iron * Restart home medications for primary medical issues * Case management to coordinate safe discharge plan
[2018-12-07] MEDS ORDERED: POTASSIUM CHLORIDE 20 MEQ PACKET PO PRN (10:44)
[2018-12-07] MEDS ORDERED: chlordiazePOXIDE 25 MG CAPSULE PO PRN (10:44)
[2018-12-07] MEDS ORDERED: CYANOCOBALAMIN (VITAMIN B-12) 500 MCG TABLET PO SCH (10:44)
[2018-12-07] MEDS ORDERED: MAGNESIUM SULFATE 2 GM/50 ML BAG IV PRN (10:44)
[2018-12-07] MEDS ORDERED: ACETAMINOPHEN 325 MG TABLET PO PRN ×2 (10:44→12:56)
[2018-12-07] MEDS ORDERED: HEPARIN 5,000 UNIT/ML VIAL SQ SCH (10:44)
[2018-12-07] MEDS ORDERED: LACTATED RINGERS 1,000 ML IV SCH (10:44)
[2018-12-07] MEDS ORDERED: THIAMINE 100 MG TABLET PO SCH (10:44)
[2018-12-07] MEDS ORDERED: IRON SUCROSE COMPLEX 100 MG/5 ML VIAL IV SCH (10:44)
[2018-12-07] MEDS ORDERED: cefTRIAXone 2 GM in DEXTROSE 5% IN WATER 50 ML IV SCH (10:44)
[2018-12-07] MEDS ORDERED: DOCUSATE SODIUM 100 MG CAPSULE PO SCH (10:44)
[2018-12-07] MEDS ORDERED: ACETAMINOPHEN 800 MG/80 ML BOTTLE IV PRN ×2 (10:44→12:56)
[2018-12-07] MEDS ORDERED: MULTIVIT,THER IRON,CA,FA & MIN 1 TABLET PO SCH (10:44)
[2018-12-07] MEDS ORDERED: ONDANSETRON 4 MG/2 ML VIAL IV PRN ×2 (10:44→12:56)
[2018-12-07] MEDS ORDERED: PROMETHAZINE 25 MG/ML VIAL IV PRN ×2 (10:44→12:56)
--- NOTE | 2018-12-07 12:15 | Ultrasound Report ---
History: Urinary tract infection, weakness and diarrhea and shakiness FINDINGS: The right kidney measures 5.6 x 5.6 x 10.8 cm left measures 5.0 x 4.9 x 9.6 cm. There is no evidence of a mass, cyst, calculus, hydronephrosis or inflammation in or around either kidney. Doppler shows flow urine through both ureters into the bladder. Before voiding the bladder contained 213 cc of urine. The wall measures up to 3.4 mm in thickness which is borderline thickened. Patient was unable to void voluntarily. IMPRESSION: Anatomically normal kidneys Borderline thickened wall of the urinary bladder. This could be due normal mucosal folds in an incompletely distended bladder, chronic bladder outlet obstruction or cystitis. Interpreted and Authenticated by: Imer Flores 12/07/18
[2018-12-07] MEDS: LACTATED RINGERS 1,000 ML IV SCH (13:14)
[2018-12-07] MEDS: chlordiazePOXIDE 25 MG CAPSULE PO PRN ×2 (13:52→21:52)
[2018-12-07] MEDS: 0.9 % SODIUM CHLORIDE 10 ML SYRINGE IV SCH (13:52)
[2018-12-07] MEDS ORDERED: 0.9 % SODIUM CHLORIDE 10 ML SYRINGE IV SCH (14:00)
[2018-12-07] MEDS ORDERED: SENNOSIDES/DOCUSATE SODIUM 1 TAB TABLET PO SCH (21:00)
[2018-12-07] MEDS: HEPARIN 5,000 UNIT/ML VIAL SQ SCH (21:52)
[2018-12-07] MEDS: CYANOCOBALAMIN (VITAMIN B-12) 500 MCG TABLET PO SCH (21:52)
[2018-12-08] MEDS: SENNOSIDES/DOCUSATE SODIUM 1 TAB TABLET PO SCH ×2 (00:08→20:39)
[2018-12-08] MEDS: DOCUSATE SODIUM 100 MG CAPSULE PO SCH ×3 (00:08→20:40)
[2018-12-08] MEDS: 0.9 % SODIUM CHLORIDE 10 ML SYRINGE IV SCH ×3 (00:09→14:17)
[2018-12-08] MEDS: MAGNESIUM SULFATE 2 GM/50 ML BAG IV PRN ×2 (00:12→07:41)
[2018-12-08] MEDS: chlordiazePOXIDE 25 MG CAPSULE PO PRN ×4 (04:29→23:30)
[2018-12-08 06:00] LABS: ALT/SGPT 27 U/l (0-40); AST/SGOT 54 U/l (0-37); Albumin 3.1 gm/dL (3.2-5.2); Albumin/Globulin Ratio 1.6 (1.0-2.3); Alkaline Phosphatase 93 U/L (39-117); Bilirubin,Direct < 0.2 mg/dL (0.0-0.3); Bilirubin,Total 0.4 mg/dL (0.0-1.0); Blood Urea Nitrogen 10 mg/dl (6-20); Calcium 7.9 mg/dl (8.6-10.4); Carbon Dioxide 25 mmol/L (22-30); Chloride 97 mmol/L (96-108); Gamma Glutamyl Transpeptidase 271 U/L (5-36); Glomerular Filtration Rate 95; Glucose 90 mg/dL (70-105); Lactate Dehydrogenase 294 U/L (94-250); Magnesium 1.6 mg/dL (1.6-2.5); Phosphorous 1.6 mg/dL (2.7-4.5); Potassium 3.3 mmol/L (3.3-5.1); Sodium 135 mmol/L (133-145); Triglycerides 95 mg/dl (<150)
[2018-12-08 06:13] LABS: Hematocrit 23.1 % (36.0-48.0); Hemoglobin 7.1 g/dL (12.0-15.0); Mean Corpuscular HGB Conc 30.9 g/dL (31.0-36.0); Mean Platelet Volume 8.9 fL (7.4-10.4); Platelet Count 89 K/mcL (140-440); RBC 2.75 M/mcL (4.00-5.20); Red Cell Distribution Width 21.5 % (11.5-14.5); WBC 5.3 K/mcL (4.5-11.0)
[2018-12-08] MEDS: POTASSIUM CHLORIDE 20 MEQ PACKET PO PRN (08:17)
[2018-12-08] MEDS: HEPARIN 5,000 UNIT/ML VIAL SQ SCH ×2 (08:17→20:40)
[2018-12-08] MEDS: MULTIVIT,THER IRON,CA,FA & MIN 1 TABLET PO SCH (08:18)
[2018-12-08] MEDS: CYANOCOBALAMIN (VITAMIN B-12) 500 MCG TABLET PO SCH ×2 (08:18→20:39)
[2018-12-08] MEDS: THIAMINE 100 MG TABLET PO SCH (08:19)
[2018-12-08 09:21] LABS: Anisocytosis 1+ (NONE SEEN); Band Neutrophils % 2 % (0-10); Eosinophils % (Manual) 4 % (0-7); Hypochromasia 1+ (NONE SEEN); Lymphocytes % 18 % (15-49); Metamyelocytes % 1 % (0-0); Monocytes % (Manual) 1 % (1-12); Platelet Estimate DECREASED (NORMAL); RBC Morphology ABNORM (NORMAL); Segmented Neutrophils % 74 % (38-78)
[2018-12-08] MEDS ORDERED: cefTRIAXone 2 GM VIAL ONE (10:24)
--- NOTE | 2018-12-08 10:24 | Internal Med Progress Note ---
Medical - PN: Subj Patient information: Note initiated : 12/08/18 at 10:22 am Service Date, if different from initiated Date: [] Patient: Do Cantu a 58 y/o F admitted on 12/07/18 for Weakness, Diarrhea, Dry Heaving, Shaky. Chief Complaint: [] Interval history: Ms. Cantu is a 58 year old F history of chronic alcoholism presents to the ER with increasing generalized weakness along with nausea that has progressed over the last few days. Patient frequently drinks whiskey but has not taken it in 24 hours due to persistent nausea. She also had an episode of diarrhea. She denies subjective fever, headache, lightheadedness, chest palpitation. She further denies changes in medications, falls. Initial workup in the ER was consistent with pyuria/UTI along with volume depletion and signs of alcohol withdrawal CIWA score 11. Patient was started on lorazepam along with crystalloids and Hospitalist service was subsequently consulted for admission in light of above. At the time evaluation patient is fidgety and anxious and shaky. She is able to answer some questions. She lives alone and has not been able to take care of herself. She consumes 6-8 drinks of whiskey daily. 12/08- patient doing better. No overnight events except for persistent tachycardia/withdrawal symptoms improving on Librium. No concerns per staff. Hemoglobin 7.1 microcytic. Low phosphorus at 1.6, low magnesium at 1, potassium 3.3. Continue dietary support for protein calorie malnutrition. Multivitamin supplements. Ultrasound unremarkable except for cystitis - Constitutional Vitals: Vital Signs Temp Pulse Resp BP Pulse Ox 96.8 F L 99 H 20 93/75 96 12/08/18 07:36 12/07/18 23:34 12/08/18 07:36 12/08/18 08:01 12/08/18 07:36 Period Temp Pulse Resp BP Sys/[place]ning Pulse Ox Last 24 Hr 96.8 F-99.3 F 99-128 16-24 88-116/55-75 90-99 Intake and Output 12/07/18 12/08/18 12/08/18 21:59 05:59 13:59 Intake Total 600 730 Output Total 101 403 150 Balance 499 327 -150 Weight 115 lb 4.8 oz Intake & Output: Intake & Output 12/07/18 12/08/18 12/08/18 21:59 05:59 13:59 Intake Total 600 730 Output Total 101 403 150 Balance 499 327 -150 Weight 115 lb 4.8 oz Intake: IV 50 Oral 600 680 Output: Void Amount 100 400 150 # of times incontinent of urine 1 3 Other: Percent of Meal Consumed 75% Urine Color Dark Maggi Urine Odor Strong Medical - PN: Obj Da - Labs CBC & Chem 7: 12/08/18 03:40 12/08/18 03:40 Labs: Abnormal Lab Results 12/08/18 12/08/18 12/07/18 03:40 03:40 03:25 RBC 2.75 L Hgb 7.1 L Hct 23.1 L MCH 25.9 L MCHC 30.9 L RDW 21.5 H Plt Count 89 L Gran % [place] % (Auto) Metamyelocytes % 1 H RBC Morphology Abnorm A Hypochromasia 1+ A Anisocytosis 1+ A Chloride Carbon Dioxide Anion Gap Glucose Calcium 7.9 L Phosphorus 1.6 L Magnesium 1.0 L Total Bilirubin GGT 271 H AST 54 H ALT Alkaline Phosphatase Lactate Dehydrogenase 294 H Total Protein 5.1 L Albumin 3.1 L Globulin 2.0 L Urine Protein Urine Occult Blood Ur Leukocyte Esterase Urine RBC Urine WBC 12/07/18 12/07/18 12/06/18 03:25 00:45 23:50 RBC Hgb Hct MCH MCHC RDW Plt Count Gran % [place] % (Auto) Metamyelocytes % RBC Morphology Hypochromasia Anisocytosis Chloride 94 L Carbon Dioxide 19 L Anion Gap 25.0 H Glucose 115 H 179 H Calcium 8.2 L Phosphorus Magnesium Total Bilirubin 1.1 H GGT AST 95 H ALT 41 H Alkaline Phosphatase 140 H Lactate Dehydrogenase Total Protein Albumin Globulin Urine Protein 30 A Urine Occult Blood 0.03 A Ur Leukocyte Esterase 500 A Urine RBC 18 H Urine WBC > 182 H 12/06/18 23:50 RBC 2.89 L Hgb 7.4 L Hct 23.8 L MCH 25.6 L MCHC RDW 21.8 H Plt Count 115 L Gran % 80.0 H [place] % (Auto) 0 L Metamyelocytes % RBC Morphology Hypochromasia Anisocytosis Chloride Carbon Dioxide Anion Gap Glucose Calcium Phosphorus Magnesium Total Bilirubin GGT AST ALT Alkaline Phosphatase Lactate Dehydrogenase Total Protein Albumin Globulin Urine Protein Urine Occult Blood Ur Leukocyte Esterase Urine RBC Urine WBC Meds: Medications Acetaminophen (Tylenol) 650 mg PO Q4-6HP PRN PRN Reason: PAIN/FEVER > 101 Chlordiazepoxide HCl (Librium) 25 mg PO Q6HP PRN PRN Reason: Alcohol Withdrawal Last Admin: 12/08/18 04:29 Dose: 25 mg Documented by: Cyanocobalamin (Vitamin B-12) 1,000 mcg PO BID [facility] Stop: 12/11/18 09:01 Last Admin: 12/08/18 08:18 Dose: 1,000 mcg Documented by: Docusate Sodium (Colace) 100 mg PO BID [facility] Last Admin: 12/08/18 08:18 Dose: 100 mg Documented by: Heparin Sodium (Porcine) (Heparin) 5,000 unit SQ Q12 [facility] Last Admin: 12/08/18 08:17 Dose: 5,000 unit Documented by: Ceftriaxone Sodium 2 gm/ (Dextrose) 50 mls @ 100 mls/hr IV DAILY [facility]; Protocol Lactated Ringer's (Lactated Ringers) 1,000 mls @ 100 mls/hr IV .Q10H [facility] Stop: 12/08/18 16:43 Last Admin: 12/08/18 00:00 Dose: 100 mls/hr Documented by: Magnesium Sulfate (Magnesium Sulfate) 2 gm in 50 mls @ 50 mls/hr IV UD PRN PRN Reason: MG = or < 1.7 Last Admin: 12/08/18 07:41 Dose: 50 mls/hr Documented by: Acetaminophen (Ofirmev) 800 mg in 80 mls @ 160 mls/hr IV Q6HP PRN PRN Reason: PAIN/FEVER > 101 Iron Carb/Multivit/Apprentice Architect/Folic Acid (Multivitamin W/Minerals) 1 tab PO DAILY [facility] Last Admin: 12/08/18 08:18 Dose: 1 tab Documented by: Iron Sucrose (Venofer) 200 mg IV TuThSa@0900 [facility] Ondansetron HCl (Zofran) 4 mg IV Q4-6HP PRN PRN Reason: Nausea And Vomiting Potassium Chloride (Klor-Con) 40 meq PO DAILYP PRN PRN Reason: K+ < 3.5 Last Admin: 12/08/18 08:17 Dose: 40 meq Documented by: Promethazine HCl (Phenergan) 6.25 mg IV Q4-6HP PRN PRN Reason: Nausea And Vomiting Senna/Docusate Sodium (Senna Plus Tablet) 1 tab PO HS [facility] Last Admin: 12/08/18 00:08 Dose: Not Given Documented by: Sodium Chloride (Saline Flush) 10 ml IV Q8 [facility] Last Admin: 12/08/18 04:54 Dose: Not Given Documented by: Thiamine HCl (Vitamin B1) 100 mg PO DAILY [facility] Last Admin: 12/08/18 08:19 Dose: 100 mg Documented by: Medical - PN: A/P - Time Spent With Patient Total time spent is greater than 50% in coordination of care (as documented) at patient's floor/unit and/or counseling patient: 25 - 35 minutes (1) UTI (urinary tract infection) Status: Acute Assessment and plan: * Alcohol withdrawal/alcohol abuse-oral Librium/alcohol. CIWA 13. Continue close monitoring * Acute cystitis- continue antibiotic coverage. De-escalate based on cultures. Renal ultrasound consistent with cystitis * Low magnesium, phosphorus, potassium-continue aggressive IV and oral replacement. Continue thiamine * Volume depletion-clinically resolved * Weakness/deconditioning-aggressive PT OT/nutrition support/thiamine and I depression * Protein calorie malnutrition-nutrition support with high-protein calorie supplements * Microcytic anemia-hemoglobin 7.1. History of iron deficiency -continue IV iron infusion * Alcoholic liver disease with elevated LFTs at baseline * History of hypertension restart lisinopril * Full code * Prophylaxis heparin Plan * De-escalate antibiotics based on culture * Nutrition support/electrolyte replacement/thiamine * PT OT * IV iron * Continue home medications for pre-existing medical issues * Discharge planning per case management Current Visit: Yes Medical - PN: Qual - VTE Deep Vein Thrombosis/Pulmonary Embolism Present on Admission: No
[2018-12-08] MEDS: cefTRIAXone 2 GM in DEXTROSE 5% IN WATER 50 ML IV SCH (10:36)
[2018-12-08] MEDS: LACTATED RINGERS 1,000 ML IV SCH ×2 (12:05)
--- NOTE | 2018-12-08 14:02 | Internal Med Progress Note ---
Medical - PN: Subj Patient information: Note initiated : 12/08/18 at 1:55 pm Service Date, if different from initiated Date: [] Patient: Do Cantu a 58 y/o F admitted on 12/07/18 for Weakness, Diarrhea, Dry Heaving, Shaky. Chief Complaint: [] Interval history: Ms. Cantu is a 58 year old F history of chronic alcoholism presents to the ER with increasing generalized weakness along with nausea that has progressed over the last few days. Patient frequently drinks whiskey but has not taken it in 24 hours due to persistent nausea. She also had an episode of diarrhea. She denies subjective fever, headache, lightheadedness, chest palpitation. She further denies changes in medications, falls. Initial workup in the ER was consistent with pyuria/UTI along with volume depletion and signs of alcohol withdrawal CIWA score 11. Patient was started on lorazepam along with crystalloids and Hospitalist service was subsequently consulted for admission in light of above. At the time evaluation patient is fidgety and anxious and shaky. She is able to answer some questions. She lives alone and has not been able to take care of herself. She consumes 6-8 drinks of whiskey daily. 12/08- patient doing better. No overnight events except for persistent tachycardia/withdrawal symptoms improving on Librium. No concerns per staff. Hemoglobin 7.1 microcytic. Low phosphorus at 1.6, low magnesium at 1, potassium 3.3. Continue dietary support for protein calorie malnutrition. Multivitamin supplements. Ultrasound unremarkable except for cystitis 12/09 - Constitutional Vitals: Vital Signs Temp Pulse Resp BP Pulse Ox 97.2 F 99 H 18 109/68 92 12/08/18 11:51 12/07/18 23:34 12/08/18 11:51 12/08/18 11:51 12/08/18 11:51 Period Temp Pulse Resp BP Sys/Manning Pulse Ox Last 24 Hr 96.8 F-99.3 F 99-128 16-24 88-116/55-75 90-99 Intake and Output 12/07/18 12/08/18 12/08/18 21:59 05:59 13:59 Intake Total 696 310 2770 Output Total 101 403 801 Balance 499 327 439 Weight 52.299 kg 52.299 kg Patient Weight 06/01/19 05:59 Weight 52.299 kg Intake & Output: Intake & Output 12/07/18 12/08/18 12/08/18 21:59 05:59 13:59 Intake Total 921 714 7617 Output Total 101 403 801 Balance 499 327 439 Weight 52.299 kg 52.299 kg Intake: IV 50 1000 Lactated Ringers 1,000 ml @ 100 1000 mls/hr IV .Q10H [facility] Rx#: [id number] Oral 600 680 240 Output: Void Amount 100 400 800 # of times incontinent of urine 1 3 1 Other: Meal Lunch Percent of Meal Consumed 75% 10 Feeding Ability Needs Supervision Urine Color Dark Maggi Urine Odor Strong # Voids 1 Exam: General: Alert, Awake, No acute Distress Eyes/N/T: EOMI, Head/Neck: neck supple, CV: RRR, No murmurs, Pulm: Clear b/l, no wheezing/rhonchi/rales Abd: soft, nontender, +BS x4 Ext: no clubbing/cyanosis/edema Neuro: Alert, no focal deficits, moves all extremities, Skin: warm/dry Medical - PN: Obj Da - Labs CBC & Chem 7: 12/08/18 03:40 12/08/18 03:40 Labs: Abnormal Lab Results 12/08/18 12/08/18 12/07/18 03:40 03:40 03:25 RBC 2.75 L Hgb 7.1 L Hct 23.1 L MCH 25.9 L MCHC 30.9 L RDW 21.5 H Plt Count 89 L Gran % [place] % (Auto) Metamyelocytes % 1 H RBC Morphology Abnorm A Hypochromasia 1+ A Anisocytosis 1+ A Chloride Carbon Dioxide Anion Gap Glucose Calcium 7.9 L Phosphorus 1.6 L Magnesium 1.0 L Total Bilirubin GGT 271 H AST 54 H ALT Alkaline Phosphatase Lactate Dehydrogenase 294 H Total Protein 5.1 L Albumin 3.1 L Globulin 2.0 L Urine Protein Urine Occult Blood Ur Leukocyte Esterase Urine RBC Urine WBC 12/07/18 12/07/18 12/06/18 03:25 00:45 23:50 RBC Hgb Hct MCH MCHC RDW Plt Count Gran % [place] % (Auto) Metamyelocytes % RBC Morphology Hypochromasia Anisocytosis Chloride 94 L Carbon Dioxide 19 L Anion Gap 25.0 H Glucose 115 H 179 H Calcium 8.2 L Phosphorus Magnesium Total Bilirubin 1.1 H GGT AST 95 H ALT 41 H Alkaline Phosphatase 140 H Lactate Dehydrogenase Total Protein Albumin Globulin Urine Protein 30 A Urine Occult Blood 0.03 A Ur Leukocyte Esterase 500 A Urine RBC 18 H Urine WBC > 182 H 12/06/18 23:50 RBC 2.89 L Hgb 7.4 L Hct 23.8 L MCH 25.6 L MCHC RDW 21.8 H Plt Count 115 L Gran % 80.0 H [place] % (Auto) 0 L Metamyelocytes % RBC Morphology Hypochromasia Anisocytosis Chloride Carbon Dioxide Anion Gap Glucose Calcium Phosphorus Magnesium Total Bilirubin GGT AST ALT Alkaline Phosphatase Lactate Dehydrogenase Total Protein Albumin Globulin Urine Protein Urine Occult Blood Ur Leukocyte Esterase Urine RBC Urine WBC Meds: Medications Acetaminophen (Tylenol) 650 mg PO Q4-6HP PRN PRN Reason: PAIN/FEVER > 101 Chlordiazepoxide HCl (Librium) 25 mg PO Q6HP PRN PRN Reason: Alcohol Withdrawal Last Admin: 12/08/18 10:36 Dose: 25 mg Documented by: Cyanocobalamin (Vitamin B-12) 1,000 mcg PO BID [facility] Stop: 12/11/18 09:01 Last Admin: 12/08/18 08:18 Dose: 1,000 mcg Documented by: Docusate Sodium (Colace) 100 mg PO BID [facility] Last Admin: 12/08/18 08:18 Dose: 100 mg Documented by: Heparin Sodium (Porcine) (Heparin) 5,000 unit SQ Q12 [facility] Last Admin: 12/08/18 08:17 Dose: 5,000 unit Documented by: Ceftriaxone Sodium 2 gm/ (Dextrose) 50 mls @ 100 mls/hr IV DAILY [facility]; Protocol Last Admin: 12/08/18 10:36 Dose: 100 mls/hr Documented by: Lactated Ringer's (Lactated Ringers) 1,000 mls @ 100 mls/hr IV .Q10H [facility] Stop: 12/08/18 16:43 Last Admin: 12/08/18 12:05 Dose: 100 mls/hr Documented by: Magnesium Sulfate (Magnesium Sulfate) 2 gm in 50 mls @ 50 mls/hr IV UD PRN PRN Reason: MG = or < 1.7 Last Admin: 12/08/18 07:41 Dose: 50 mls/hr Documented by: Acetaminophen (Ofirmev) 800 mg in 80 mls @ 160 mls/hr IV Q6HP PRN PRN Reason: PAIN/FEVER > 101 Iron Carb/Multivit/[place]/Folic Acid (Multivitamin W/Minerals) 1 tab PO DAILY [facility] Last Admin: 12/08/18 08:18 Dose: 1 tab Documented by: Iron Sucrose (Venofer) 200 mg IV TuThSa@0900 [facility] Ondansetron HCl (Zofran) 4 mg IV Q4-6HP PRN PRN Reason: Nausea And Vomiting Potassium Chloride (Klor-Con) 40 meq PO DAILYP PRN PRN Reason: K+ < 3.5 Last Admin: 12/08/18 08:17 Dose: 40 meq Documented by: Potassium/Phosphorus/Sodium (Neutra Phos) 2 packet PO BID [facility] Promethazine HCl (Phenergan) 6.25 mg IV Q4-6HP PRN PRN Reason: Nausea And Vomiting Senna/Docusate Sodium (Senna Plus Tablet) 1 tab PO HS [facility] Last Admin: 12/08/18 00:08 Dose: Not Given Documented by: Sodium Chloride (Saline Flush) 10 ml IV Q8 [facility] Last Admin: 12/08/18 04:54 Dose: Not Given Documented by: Thiamine HCl (Vitamin B1) 100 mg PO DAILY [facility] Last Admin: 12/08/18 08:19 Dose: 100 mg Documented by: Medical - PN: A/P - Time Spent With Patient Total time spent is greater than 50% in coordination of care (as documented) at patient's floor/unit and/or counseling patient: - Narrative A/P Narrative: A: *Alcohol withdrawal/alcohol abuse: *Acute cystitis: *Low magnesium/phosphorus/potassium: *Volume depletion: clinically resolved *Failure to thrive at home/generalized weakness/deconditioning/debility: *Protein calorie malnutrition-nutrition support with high-protein calorie supple ments *Microcytic anemia, chronic, NIKKI: *Alcoholic liver disease with elevated LFTs at baseline *History of hypertension: restart lisinopril *tobacco abuse Plan -oral Librium/alcohol. CIWA 13. Continue close monitoring -De-escalate antibiotics based on culture -Nutrition support/electrolyte replacement/thiamine -PT OT -IV iron -Smoking cessation counseling -Discharge planning per case management -ppx: Heparin Full code Medical - PN: Qual - VTE Deep Vein Thrombosis/Pulmonary Embolism Present on Admission: No
[2018-12-08] MEDS ORDERED: NICOTINE 21 MG PATCH TOPICAL ONE (19:19)
[2018-12-08] MEDS ORDERED: NICOTINE 21 MG PATCH ONE (19:25)
[2018-12-08] MEDS: NEUTRA PHOS 1 PACKET PO SCH (20:39)
[2018-12-09] MEDS: 0.9 % SODIUM CHLORIDE 10 ML SYRINGE IV SCH ×4 (03:23→20:32)
[2018-12-09] MEDS: chlordiazePOXIDE 25 MG CAPSULE PO PRN ×3 (05:40→20:31)
[2018-12-09 05:48] LABS: ALT/SGPT 38 U/l (0-40); AST/SGOT 127 U/l (0-37); Albumin 3.4 gm/dL (3.2-5.2); Albumin/Globulin Ratio 1.7 (1.0-2.3); Alkaline Phosphatase 111 U/L (39-117); Bilirubin,Direct < 0.2 mg/dL (0.0-0.3); Bilirubin,Total 0.3 mg/dL (0.0-1.0); Blood Urea Nitrogen 6 mg/dl (6-20); Calcium 8.5 mg/dl (8.6-10.4); Carbon Dioxide 25 mmol/L (22-30); Chloride 102 mmol/L (96-108); Gamma Glutamyl Transpeptidase 309 U/L (5-36); Glomerular Filtration Rate 106; Glucose 95 mg/dL (70-105); Lactate Dehydrogenase 354 U/L (94-250); Magnesium 1.7 mg/dL (1.6-2.5); Potassium 3.5 mmol/L (3.3-5.1); Sodium 138 mmol/L (133-145); Triglycerides 67 mg/dl (<150); Uric Acid 3.8 mg/dL (2.5-8.0)
[2018-12-09 05:56] LABS: Hematocrit 21.2 % (36.0-48.0); Hemoglobin 6.4 g/dL (12.0-15.0); Mean Cell Volume 84.4 fL (80.0-100.0); Mean Corpuscular HGB Conc 29.9 g/dL (31.0-36.0); Mean Platelet Volume 9.2 fL (7.4-10.4); Platelet Count 89 K/mcL (140-440); RBC 2.51 M/mcL (4.00-5.20); Red Cell Distribution Width 21.9 % (11.5-14.5)
[2018-12-09] MEDS ORDERED: 0.9 % SODIUM CHLORIDE 250 ML IV SCH (07:00)
[2018-12-09 07:19] LABS: Anisocytosis 2+ (NONE SEEN); Basophils % (Manual) 2 % (0-2); Eosinophils % (Manual) 1 % (0-7); Hypochromasia 1+ (NONE SEEN); Lymphocytes % 18 % (15-49); Monocytes % (Manual) 7 % (1-12); Platelet Estimate DECREASED (NORMAL); RBC Morphology ABNORMAL (NORMAL); Segmented Neutrophils % 72 % (38-78)
--- NOTE | 2018-12-09 08:03 | Internal Med Progress Note ---
Medical - PN: Subj Patient information: Note initiated : 12/09/18 at 7:54 am Service Date, if different from initiated Date: [] Patient: Do Cantu a 58 y/o F admitted on 12/07/18 for Weakness, Diarrhea, Dry Heaving, Shaky. Chief Complaint: [] Interval history: Ms. Cantu is a 58 year old F history of chronic alcoholism presents to the ER with increasing generalized weakness along with nausea that has progressed over the last few days. Patient frequently drinks whiskey but has not taken it in 24 hours due to persistent nausea. She also had an episode of diarrhea. She denies subjective fever, headache, lightheadedness, chest palpitation. She further denies changes in medications, falls. Initial workup in the ER was consistent with pyuria/UTI along with volume depletion and signs of alcohol withdrawal CIWA score 11. Patient was started on lorazepam along with crystalloids and Hospitalist service was subsequently consulted for admission in light of above. At the time evaluation patient is fidgety and anxious and shaky. She is able to answer some questions. She lives alone and has not been able to take care of herself. She consumes 6-8 drinks of whiskey daily. 12/08- patient doing better. No overnight events except for persistent tachycardia/withdrawal symptoms improving on Librium. No concerns per staff. Hemoglobin 7.1 microcytic. Low phosphorus at 1.6, low magnesium at 1, potassium 3.3. Continue dietary support for protein calorie malnutrition. Multivitamin supplements. Ultrasound unremarkable except for cystitis 12/09 Was agitated last night. Poor sleep. Otherwise no complaints Other than not having a bowel movement. Review of Systems: denies headache/fever/chills/nausea/vomiting/chest or abdominal pain/cough/dyspnea/diarrhea. Otherwise see above. - Constitutional Vitals: Vital Signs Temp Pulse Resp BP Pulse Ox 98.8 F 101 H 14 110/60 96 12/09/18 04:21 12/09/18 06:29 12/09/18 04:21 12/09/18 04:21 12/09/18 06:29 Period Temp Pulse Resp BP Sys/Manning Pulse Ox Last 24 Hr 97.2 F-98.8 F 89-101 14-18 93-110/60-75 91-99 Intake and Output 12/08/18 12/09/1812/09/19 21:59 05:59 13:59 Intake Total 2074 100 240 Output Total 400 651 Balance 2074300 -411 Weight 53.666 kg Intake & Output: Intake & Output 12/08/18 12/09/18 12/09/18 21:59 05:59 13:59 Intake Total 2074 100 240 Output Total 400 651 Balance 2074300 -411 Weight 53.666 kg Intake: IV 1875 Oral 200 100 240 Output: Void Amount 400 650 # of times incontinent of urine 1 Other: Meal Dinner Percent of Meal Consumed 75% Urine Appearance Clear Clear Urine Color Pale Pale # Voids 1 Exam: General: Alert, Awake, No acute Distress Eyes/N/T: EOMI, Head/Neck: neck supple, CV: RRR, No murmurs, Pulm: Clear b/l, no wheezing/rhonchi/rales Abd: soft, nontender, +BS x4 Ext: no clubbing/cyanosis/edema Neuro: Alert, no focal deficits, moves all extremities, tremulous Skin: warm/dry Medical - PN: Obj Da - Labs CBC & Chem 7: 12/09/18 03:40 12/09/18 03:40 Labs: Abnormal Lab Results 12/09/18 12/09/18 12/08/18 03:40 03:40 03:40 WBC 4.0 L RBC 2.51 L Hgb 6.4 L* Hct 21.2 L MCH 25.3 L MCHC 29.9 L RDW 21.9 H Plt Count 89 L Gran % [place] % (Auto) Metamyelocytes % RBC Morphology Hypochromasia 1+ A Anisocytosis 2+ A Chloride Carbon Dioxide Anion Gap Creatinine 0.5 L Glucose Calcium 8.5 L 7.9 L Phosphorus 2.0 L 1.6 L Magnesium Total Bilirubin GGT 309 H 271 H AST 127 H 54 H ALT Alkaline Phosphatase Lactate Dehydrogenase 354 H 294 H Total Protein 5.4 L 5.1 L Albumin 3.1 L Globulin 2.0 L 2.0 L Urine Protein Urine Occult Blood Ur Leukocyte Esterase Urine RBC Urine WBC 12/08/18 12/07/18 12/07/18 03:40 03:25 03:25 WBC RBC 2.75 L Hgb 7.1 L Hct 23.1 L MCH 25.9 L MCHC 30.9 L RDW 21.5 H Plt Count 89 L Gran % [place] % (Auto) Metamyelocytes % 1 H RBC Morphology Abnorm A Hypochromasia 1+ A Anisocytosis 1+ A Chloride Carbon Dioxide Anion Gap Creatinine Glucose 115 H Calcium 8.2 L Phosphorus Magnesium 1.0 L Total Bilirubin GGT AST ALT Alkaline Phosphatase Lactate Dehydrogenase Total Protein Albumin Globulin Urine Protein Urine Occult Blood Ur Leukocyte Esterase Urine RBC Urine WBC 12/07/18 12/06/18 12/06/18 00:45 23:50 23:50 WBC RBC 2.89 L Hgb 7.4 L Hct 23.8 L MCH 25.6 L MCHC RDW 21.8 H Plt Count 115 L Gran % 80.0 H [place] % (Auto) 0 L Metamyelocytes % RBC Morphology Hypochromasia Anisocytosis Chloride 94 L Carbon Dioxide 19 L Anion Gap 25.0 H Creatinine Glucose 179 H Calcium Phosphorus Magnesium Total Bilirubin 1.1 H GGT AST 95 H ALT 41 H Alkaline Phosphatase 140 H Lactate Dehydrogenase Total Protein Albumin Globulin Urine Protein 30 A Urine Occult Blood 0.03 A Ur Leukocyte Esterase 500 A Urine RBC 18 H Urine WBC > 182 H Meds: Medications Acetaminophen (Tylenol) 650 mg PO Q4-6HP PRN PRN Reason: PAIN/FEVER > 101 Chlordiazepoxide HCl (Librium) 25 mg PO Q6HP PRN PRN Reason: Alcohol Withdrawal Last Admin: 12/09/18 05:40 Dose: 25 mg Documented by: Cyanocobalamin (Vitamin B-12) 1,000 mcg PO BID [facility] Stop: 12/11/18 09:01 Last Admin: 12/08/18 20:39 Dose: 1,000 mcg Documented by: Docusate Sodium (Colace) 100 mg PO BID [facility] Last Admin: 12/08/18 20:40 Dose: 100 mg Documented by: Heparin Sodium (Porcine) (Heparin) 5,000 unit SQ Q12 [facility] Last Admin: 12/08/18 20:40 Dose: 5,000 unit Documented by: Ceftriaxone Sodium 2 gm/ (Dextrose) 50 mls @ 100 mls/hr IV DAILY [facility]; Protocol Last Infusion: 12/08/18 12:00 Dose: Infused Documented by: Magnesium Sulfate (Magnesium Sulfate) 2 gm in 50 mls @ 50 mls/hr IV UD PRN PRN Reason: MG = or < 1.7 Last Infusion: 12/08/18 09:00 Dose: Infused Documented by: Acetaminophen (Ofirmev) 800 mg in 80 mls @ 160 mls/hr IV Q6HP PRN PRN Reason: PAIN/FEVER > 101 Last Infusion: 12/08/18 15:00 Dose: Infused Documented by: Sodium Chloride (Sodium Chloride 0.9%) 250 mls @ 20 mls/hr IV .[id number] [facility] Stop: 12/09/18 19:29 Iron Carb/Multivit/[place]/Folic Acid (Multivitamin W/Minerals) 1 tab PO DAILY [facility] Last Admin: 12/08/18 08:18 Dose: 1 tab Documented by: Iron Sucrose (Venofer) 200 mg IV TuThSa@0900 [facility] Nicotine (Nicoderm) 21 mg TOPICAL DAILY@1000 [facility] Ondansetron HCl (Zofran) 4 mg IV Q4-6HP PRN PRN Reason: Nausea And Vomiting Potassium Chloride (Klor-Con) 40 meq PO DAILYP PRN PRN Reason: K+ < 3.5 Last Admin: 12/08/18 08:17 Dose: 40 meq Documented by: Potassium/Phosphorus/Sodium (Neutra Phos) 2 packet PO BID [facility] Last Admin: 12/08/18 20:39 Dose: 2 packet Documented by: Promethazine HCl (Phenergan) 6.25 mg IV Q4-6HP PRN PRN Reason: Nausea And Vomiting Senna/Docusate Sodium (Senna Plus Tablet) 1 tab PO HS [facility] Last Admin: 12/08/18 20:39 Dose: 1 tab Documented by: Sodium Chloride (Saline Flush) 10 ml IV Q8 [facility] Last Admin: 12/09/18 05:40 Dose: 10 ml Documented by: Thiamine HCl (Vitamin B1) 100 mg PO DAILY [facility] Last Admin: 12/08/18 08:19 Dose: 100 mg Documented by: Medical - PN: A/P - Time Spent With Patient Total time spent is greater than 50% in coordination of care (as documented) at patient's floor/unit and/or counseling patient: - Narrative A/P Narrative: A: *Alcohol withdrawal/alcohol abuse: *Acute cystitis: *etoh hepatitis: hepatic disc score <32 *suspected etoh liver dz: *thrombocytopenia: 2/2 above *Low magnesium/phosphorus/potassium: improving *Volume depletion: clinically resolved *Failure to thrive at home/generalized weakness/deconditioning/debility: *Protein calorie malnutrition: *Microcytic anemia, acute on chronic, NIKKI: -dilutional component -no gross bleeding or diarrhea, no abdominal pain, does have bruising from past falls *History of hypertension: home lisinopril *tobacco abuse Plan: -oral Librium/alcohol. CIWA monitoring -De-escalate antibiotics based on culture -Nutrition support/electrolyte replacement/thiamine -PT OT -IV iron, fobt -BP stable w/o home ACEI -Smoking cessation counseling -Dietary consult -Discharge planning per case management -ppx: Heparin Full code Medical - PN: Qual - VTE Deep Vein Thrombosis/Pulmonary Embolism Present on Admission: No
[2018-12-09] MEDS: MAGNESIUM SULFATE 2 GM/50 ML BAG IV PRN (08:13)
[2018-12-09] MEDS ORDERED: IRON SUCROSE COMPLEX 100 MG/5 ML VIAL IV SCH (09:00)
[2018-12-09] MEDS: POTASSIUM CHLORIDE 20 MEQ PACKET PO PRN (09:03)
[2018-12-09 09:09] LABS: Prothrombin Time 12.9 sec (11.9-14.5)
[2018-12-09] MEDS: HEPARIN 5,000 UNIT/ML VIAL SQ SCH ×2 (09:57→20:30)
[2018-12-09] MEDS: CYANOCOBALAMIN (VITAMIN B-12) 500 MCG TABLET PO SCH ×2 (09:57→20:31)
[2018-12-09] MEDS: MULTIVIT,THER IRON,CA,FA & MIN 1 TABLET PO SCH (09:57)
[2018-12-09] MEDS: NEUTRA PHOS 1 PACKET PO SCH ×2 (09:58→20:30)
[2018-12-09] MEDS: DOCUSATE SODIUM 100 MG CAPSULE PO SCH ×2 (09:59→20:31)
[2018-12-09] MEDS: NICOTINE 21 MG PATCH TOPICAL SCH (09:59)
[2018-12-09] MEDS ORDERED: LACTULOSE 20 GM/30 ML ORAL.SOL PO ONE (10:02)
[2018-12-09] MEDS: THIAMINE 100 MG TABLET PO SCH (10:09)
[2018-12-09] MEDS: cefTRIAXone 2 GM in DEXTROSE 5% IN WATER 50 ML IV SCH (10:20)
[2018-12-09 15:40] LABS: Hemoglobin 10.6 g/dL (12.0-15.0)
[2018-12-09] MEDS: PANTOPRAZOLE 40 MG PACKET PO SCH (19:33)
[2018-12-09] MEDS: SENNOSIDES/DOCUSATE SODIUM 1 TAB TABLET PO SCH (20:31)
[2018-12-10] MEDS: chlordiazePOXIDE 25 MG CAPSULE PO PRN ×2 (04:52→21:38)
[2018-12-10] MEDS: 0.9 % SODIUM CHLORIDE 10 ML SYRINGE IV SCH ×4 (04:52→21:39)
[2018-12-10 05:46] LABS: Hematocrit 30.2 % (36.0-48.0); Hemoglobin 9.5 g/dL (12.0-15.0); Mean Cell Volume 87.3 fL (80.0-100.0); Mean Corpuscular HGB Conc 31.4 g/dL (31.0-36.0); Mean Platelet Volume 9.6 fL (7.4-10.4); Platelet Count 110 K/mcL (140-440); RBC 3.46 M/mcL (4.00-5.20); Red Cell Distribution Width 19.9 % (11.5-14.5); WBC 4.9 K/mcL (4.5-11.0)
[2018-12-10 05:53] LABS: ALT/SGPT 49 U/l (0-40); AST/SGOT 125 U/l (0-37); Albumin 3.5 gm/dL (3.2-5.2); Albumin/Globulin Ratio 1.4 (1.0-2.3); Alkaline Phosphatase 126 U/L (39-117); Bilirubin,Direct < 0.2 mg/dL (0.0-0.3); Bilirubin,Total 0.4 mg/dL (0.0-1.0); Blood Urea Nitrogen 7 mg/dl (6-20); Calcium 9.2 mg/dl (8.6-10.4); Carbon Dioxide 25 mmol/L (22-30); Chloride 103 mmol/L (96-108); Gamma Glutamyl Transpeptidase 352 U/L (5-36); Globulin 2.5 gm/dL (2.2-3.7); Glomerular Filtration Rate 106; Glucose 86 mg/dL (70-105); Lactate Dehydrogenase 339 U/L (94-250); Magnesium 1.8 mg/dL (1.6-2.5); Phosphorous 2.6 mg/dL (2.7-4.5); Sodium 140 mmol/L (133-145); Triglycerides 86 mg/dl (<150); Uric Acid 3.4 mg/dL (2.5-8.0)
[2018-12-10 06:50] LABS: Anisocytosis 1+ (NONE SEEN); Eosinophils % (Manual) 1 % (0-7); Lymphocytes % 25 % (15-49); Monocytes % (Manual) 3 % (1-12); Platelet Estimate DECREASED (NORMAL); Polychromasia 1+ (NONE SEEN); RBC Morphology ABNORMAL (NORMAL); Reactive Lymphocytes 2 % (0-2); Segmented Neutrophils % 69 % (38-78)
[2018-12-10] MEDS: PANTOPRAZOLE 40 MG PACKET PO SCH (07:22)
--- NOTE | 2018-12-10 08:33 | Internal Med Progress Note ---
Medical - PN: Subj Patient information: Note initiated : 12/10/18 at 8:30 am Service Date, if different from initiated Date: [] Patient: Do Cantu a 58 y/o F admitted on 12/07/18 for Weakness, Diarrhea, Dry Heaving, Shaky. Chief Complaint: [] Interval history: Ms. Cantu is a 58 year old F history of chronic alcoholism presents to the ER with increasing generalized weakness along with nausea that has progressed over the last few days. Patient frequently drinks whiskey but has not taken it in 24 hours due to persistent nausea. She also had an episode of diarrhea. She denies subjective fever, headache, lightheadedness, chest palpitation. She further denies changes in medications, falls. Initial workup in the ER was consistent with pyuria/UTI along with volume depletion and signs of alcohol withdrawal CIWA score 11. Patient was started on lorazepam along with crystalloids and Hospitalist service was subsequently consulted for admission in light of above. At the time evaluation patient is fidgety and anxious and shaky. She is able to answer some questions. She lives alone and has not been able to take care of herself. She consumes 6-8 drinks of whiskey daily. 12/08- patient doing better. No overnight events except for persistent tachycardia/withdrawal symptoms improving on Librium. No concerns per staff. Hemoglobin 7.1 microcytic. Low phosphorus at 1.6, low magnesium at 1, potassium 3.3. Continue dietary support for protein calorie malnutrition. Multivitamin supplements. Ultrasound unremarkable except for cystitis 12/09 Was agitated last night. Poor sleep. Otherwise no complaints Other than not having a bowel movement. 12/10 No new complaints. Constipation resolved. I discussed with her alcohol cessation and she said she was going to stop smoking first and then work on stopping alcohol. I recommended to her stopping alcohol first given the debilitating condition is caused her to be in, and then recommended stopping smoking after that. As she did not want to stop both the same time. She told me that whether or not I like it or not she was can stop smoking first and then would work on alcohol. Review of Systems: denies headache/fever/chills/nausea/vomiting/chest or abdominal pain/cough/dyspnea/diarrhea. Otherwise see above. - Constitutional Vitals: Vital Signs Temp Pulse Resp BP Pulse Ox 98.3 F 98 H 14 132/84 99 06/01/19 20:00 12/09/18 16:00 12/09/18 16:00 12/10/18 03:59 12/09/18 16:00 Period Temp Pulse Resp BP Sys/Manning Pulse Ox Last 24 Hr 97.5 F-98.6 F 88-99 14-20 87-168/58-137 97-100 Intake and Output 12/09/18 12/10/18 12/10/18 21:59 05:59 13:59 Intake Total 532 360 Output Total 400 400 Balance 132 -40 Weight 54.658 kg Intake & Output: Intake & Output 12/09/18 12/10/18 12/10/18 21:59 05:59 13:59 Intake Total 532 360 Output Total 400 400 Balance 132 -40 Weight 54.658 kg Intake: Nourishment/Supplement quantity 240 240 (ml) IV 52 Sodium Chloride 0.9% 250 ml @ 52 20 mls/hr IV .[id number] [facility] Rx#: [id number] Oral 240 120 Output: Void Amount 400 400 Other: Meal Lunch Dinner Percent of Meal Consumed 75% 50% Feeding Ability Needs Supervision Nourishment/Supplement name Ensure ensure Stool Size Small Small Stool Color Brown Brown Yellow Green Stool Consistency Liquid # Voids 1 # Bowel Movements 2 1 # of times incontinent of 2 Bowels Exam: General: Alert, Awake, No acute Distress Eyes/N/T: EOMI, Head/Neck: neck supple, CV: RRR, No murmurs, Pulm: Clear b/l, no wheezing/rhonchi/rales Abd: soft, nontender, +BS x4 Ext: no clubbing/cyanosis/edema Neuro: Alert, no focal deficits, moves all extremities, tremulous Skin: warm/dry Medical - PN: Obj Da - Labs CBC & Chem 7: 12/10/18 04:00 12/10/18 04:00 Labs: Abnormal Lab Results 12/10/18 12/10/18 12/09/18 04:00 04:00 14:55 WBC RBC 3.46 L Hgb 9.5 L 10.6 L Hct 30.2 L 34.0 L MCH MCHC RDW 19.9 H Plt Count 110 L Metamyelocytes % RBC Morphology Polychromasia 1+ A Hypochromasia Anisocytosis 1+ A Creatinine 0.5 L Calcium Phosphorus 2.6 L Magnesium GGT 352 H AST 125 H ALT 49 H Alkaline Phosphatase 126 H Lactate Dehydrogenase 339 H Total Protein Albumin Globulin 12/09/18 12/09/18 12/08/18 03:40 03:40 03:40 WBC 4.0 L RBC 2.51 L Hgb 6.4 L* Hct 21.2 L MCH 25.3 L MCHC 29.9 L RDW 21.9 H Plt Count 89 L Metamyelocytes % RBC Morphology Polychromasia Hypochromasia 1+ A Anisocytosis 2+ A Creatinine 0.5 L Calcium 8.5 L 7.9 L Phosphorus 2.0 L 1.6 L Magnesium GGT 309 H 271 H AST 127 H 54 H ALT Alkaline Phosphatase Lactate Dehydrogenase 354 H 294 H Total Protein 5.4 L 5.1 L Albumin 3.1 L Globulin 2.0 L 2.0 L 12/08/18 12/07/18 03:40 03:25 WBC RBC 2.75 L Hgb 7.1 L Hct 23.1 L MCH 25.9 L MCHC 30.9 L RDW 21.5 H Plt Count 89 L Metamyelocytes % 1 H RBC Morphology Abnorm A Polychromasia Hypochromasia 1+ A Anisocytosis 1+ A Creatinine Calcium Phosphorus Magnesium 1.0 L GGT AST ALT Alkaline Phosphatase Lactate Dehydrogenase Total Protein Albumin Globulin Meds: Medications Acetaminophen (Tylenol) 650 mg PO Q4-6HP PRN PRN Reason: PAIN/FEVER > 101 Chlordiazepoxide HCl (Librium) 25 mg PO Q6HP PRN PRN Reason: Alcohol Withdrawal Last Admin: 12/10/18 04:52 Dose: 25 mg Documented by: Cyanocobalamin (Vitamin B-12) 1,000 mcg PO BID [facility] Stop: 12/11/18 09:01 Last Admin: 12/09/18 20:31 Dose: 1,000 mcg Documented by: Docusate Sodium (Colace) 100 mg PO BID [facility] Last Admin: 12/09/18 20:31 Dose: Not Given Documented by: Heparin Sodium (Porcine) (Heparin) 5,000 unit SQ Q12 [facility] Last Admin: 12/09/18 20:30 Dose: 5,000 unit Documented by: Ceftriaxone Sodium 2 gm/ (Dextrose) 50 mls @ 100 mls/hr IV DAILY [facility]; Protocol Last Infusion: 12/09/18 11:00 Dose: Infused Documented by: Magnesium Sulfate (Magnesium Sulfate) 2 gm in 50 mls @ 50 mls/hr IV UD PRN PRN Reason: MG = or < 1.7 Last Infusion: 12/09/18 10:04 Dose: Infused Documented by: Acetaminophen (Ofirmev) 800 mg in 80 mls @ 160 mls/hr IV Q6HP PRN PRN Reason: PAIN/FEVER > 101 Last Infusion: 12/08/18 15:00 Dose: Infused Documented by: Iron Carb/Multivit/[place]/Folic Acid (Multivitamin W/Minerals) 1 tab PO DAILY [facility] Last Admin: 12/09/18 09:57 Dose: 1 tab Documented by: Iron Sucrose (Venofer) 200 mg IV TuThSa@0900 [facility] Last Admin: 12/09/18 10:10 Dose: 200 mg Documented by: Nicotine (Nicoderm) 21 mg TOPICAL DAILY@1000 [facility] Last Admin: 12/09/18 09:59 Dose: 21 mg Documented by: Ondansetron HCl (Zofran) 4 mg IV Q4-6HP PRN PRN Reason: Nausea And Vomiting Pantoprazole Sodium (Protonix) 40 mg PO QAMAC [facility] Last Admin: 12/10/18 07:22 Dose: 40 mg Documented by: Potassium Chloride (Klor-Con) 40 meq PO DAILYP PRN PRN Reason: K+ < 3.5 Last Admin: 12/09/18 09:03 Dose: 40 meq Documented by: Potassium/Phosphorus/Sodium (Neutra Phos) 2 packet PO BID [facility] Last Admin: 12/09/18 20:30 Dose: 2 packet Documented by: Promethazine HCl (Phenergan) 6.25 mg IV Q4-6HP PRN PRN Reason: Nausea And Vomiting Senna/Docusate Sodium (Senna Plus Tablet) 1 tab PO HS [facility] Last Admin: 12/09/18 20:31 Dose: 1 tab Documented by: Sodium Chloride (Saline Flush) 10 ml IV Q8 [facility] Last Admin: 12/10/18 04:52 Dose: 10 ml Documented by: Thiamine HCl (Vitamin B1) 100 mg PO DAILY [facility] Last Admin: 12/09/18 10:09 Dose: 100 mg Documented by: Medical - PN: A/P - Time Spent With Patient Total time spent is greater than 50% in coordination of care (as documented) at patient's floor/unit and/or counseling patient: - Narrative A/P Narrative: A: *Alcohol withdrawal/alcohol abuse: *UTI: *etoh hepatitis: hepatic disc score <32 *suspected etoh liver dz: *thrombocytopenia: 2/2 above, stable *Low magnesium/phosphorus/potassium: improving *Volume depletion: clinically resolved *Failure to thrive at home/generalized weakness/deconditioning/debility: *Protein calorie malnutrition: *Microcytic anemia, acute on chronic, NIKKI: -dilutional component -no gross bleeding or diarrhea, no abdominal pain, does have bruising from past falls -FOBT negative *PUD: EGD last May showing S of ulceration of the postbulbar duodenum, erosive esophagitis. Was supposed to stay on omeprazole 20 mg daily indefinitely per GI. *History of hypertension: home lisinopril *tobacco abuse *Goals of care: Patient plans to quit smoking first and then quit alcohol even I recommended quitting alcohol first given the debilitating conditions caused her to be in. -I discussed with her my recommendation for a short term senior care facility and she adamantly refused as well as home health care. -Patient is at high risk for decompensation and readmission and given the current state she is in her current alcohol use has a poor long-term prognosis. Plan: -oral Librium/alcohol. CIWA monitoring -De-escalate antibiotics based on culture -Nutrition support//dietary consult/electrolyte replacement/thiamine -PT/OT -iron supp -BP stable w/o home ACEI -Smoking cessation counseling -Alcohol cessation counseling -home ppi -Discharge planning per case management -ppx: Heparin Full code Medical - PN: Qual - VTE Deep Vein Thrombosis/Pulmonary Embolism Present on Admission: No
[2018-12-10] MEDS: HEPARIN 5,000 UNIT/ML VIAL SQ SCH ×2 (09:22→21:38)
[2018-12-10] MEDS: CYANOCOBALAMIN (VITAMIN B-12) 500 MCG TABLET PO SCH ×2 (09:22→21:37)
[2018-12-10] MEDS: NEUTRA PHOS 1 PACKET PO SCH ×2 (09:22→21:36)
[2018-12-10] MEDS: cefTRIAXone 2 GM in DEXTROSE 5% IN WATER 50 ML IV SCH (09:22)
[2018-12-10] MEDS: MULTIVIT,THER IRON,CA,FA & MIN 1 TABLET PO SCH (09:23)
[2018-12-10] MEDS: DOCUSATE SODIUM 100 MG CAPSULE PO SCH ×2 (09:23→19:40)
[2018-12-10] MEDS: THIAMINE 100 MG TABLET PO SCH (10:08)
[2018-12-10] MEDS: NICOTINE 21 MG PATCH TOPICAL SCH (11:16)
--- NOTE | 2018-12-10 13:43 | Discharge Summary ---
Medical - DS: Prov Patient information: Note initiated : 12/10/18 at 1:39 pm Service Date, if different from initiated Date: [] Patient: Do Cantu 58 y/o F admitted on 12/07/18 for Weakness, Diarrhea, Dry Heaving, Shaky. Chief Complaint: [] Date of admission: 12/07/18 10:17 Discharge date: 12/11/18 Primary care physician: Nahum Munoz Consults: 12/07/18 Consult to Physician [CONS] Stat Comment: Consulting Provider: Alfred Chao Reason For Exam: Physician to Consult Medical - DS: Meds - Discharge Medications Prescriptions: Ciprofloxacin [Cipro] 500 mg PO BID #4 tab Active and Home Medications: Home Medications Ferrous Sulfate 325 mg PO TIDCC tablet 01/24/18 [Rx Confirmed 04/24/18 Last Taken 1 Month Ago ~03/25/18] Folic Acid 1 mg PO DAILY tablet 01/24/18 [Rx Confirmed 04/24/18 Last Taken 1 Month Ago ~03/25/18] Multivit,Ther Iron,Ca,FA & Min [Multivitamin W/Minerals] 1 tab PO DAILY tablet 01/24/18 [Rx Confirmed 04/24/18 Last Taken 1 Month Ago ~03/25/18] Thiamine [Vitamin B1] 100 mg PO QDAY #0 tablet 01/24/18 [Rx Confirmed 04/24/18 Last Taken 1 Month Ago ~03/25/18] Ondansetron [Zofran ODT] 4 mg SL Q4-6HP PRN #10 tab 02/08/18 [Rx Confirmed 04/24/18 Last Taken 1 Month Ago ~03/25/18] Calcium Acetate [Phoslo] 667 mg PO TID 04/24/18 [History Confirmed 12/07/18 Last Taken 3 Months Ago ~01/22/18] Furosemide [Lasix] 40 mg PO DAILY 04/24/18 [History Confirmed 12/07/18 Last Taken 3 Months Ago ~01/22/18] Lisinopril [Zestril] 2.5 mg PO BID 04/24/18 [History Confirmed 12/07/18 Last Taken 3 Months Ago ~01/22/18] HYDROcodone/APAP 5/325MG [[place] 5-325Mg] 1 tab PO Q4HP PRN 12/07/18 [History Confirmed 12/07/18 Last Taken Unknown] Omeprazole [PriLOSEC] 2 cap PO BID 12/07/18 [History Confirmed 12/07/18 Last Taken Unknown] Potassium Chloride [Klor-Con M20] 20 meq PO DAILY 12/07/18 [History Confirmed 12/07/18 Last Taken Unknown] Medical - DS: Hosp Hospital course: Mr. Cantu is a 58 year old F Ms. Cantu is a 58 year old F history of chronic alcoholism presents to the ER with increasing generalized weakness along with nausea that has progressed over the last few days. Patient frequently drinks whiskey but has not taken it in 24 hours due to persistent nausea. She also had an episode of diarrhea. She denies subjective fever, headache, lightheadedness, chest palpitation. She further denies changes in medications, falls. Initial workup in the ER was consistent with pyuria/UTI along with volume depletion and signs of alcohol withdrawal CIWA score 11. Patient was started on lorazepam along with crystalloids and Hospitalist service was subsequently consulted for admission in light of above. At the time evaluation patient is fidgety and anxious and shaky. She is able to answer some questions. She lives alone and has not been able to take care of herself. She consumes 6-8 drinks of whiskey daily. 12/08- patient doing better. No overnight events except for persistent tachycardia/withdrawal symptoms improving on Librium. No concerns per staff. Hemoglobin 7.1 microcytic. Low phosphorus at 1.6, low magnesium at 1, potassium 3.3. Continue dietary support for protein calorie malnutrition. Multivitamin supplements. Ultrasound unremarkable except for cystitis 12/09 Was agitated last night. Poor sleep. Otherwise no complaints Other than not having a bowel movement. 12/10 No new complaints. Constipation resolved. I discussed with her alcohol cessation and she said she was going to stop smoking first and then work on stopping alcohol. I recommended to her stopping alcohol first given the debilitating condition is caused her to be in, and then recommended stopping smoking after that. As she did not want to stop both the same time. She told me that whether or not I like it or not she was can stop smoking first and then would work on alcohol. Discussed with the patient regarding my concern with her being at home and that she likely needs a stay in a rehab facility which again she refused. She does feel like she is becoming stronger improving each day. We agreed that if she was not feeling good enough to go home tomorrow that she would not need to go to a rehab facility; and if she felt good enough then she would be able to go home and be assisted by her two neighbors as she states they check on her daily. 12/11 No overnight events. Patient refusing any snf facility or home health care. Has neighbors that help her daily. Wanting to go home today. Stable for discharge but patient is very tenuous at baseline given her continued alcoholism and frailty. Patient is extremely high risk for readmission given her continued alcohol abuse, fragile state, failure to thrive, Discharge diagnosis: Alcohol abuse with withdrawal alcoholic hepatitis alcohol liver disease UTI Secondary discharge diagnosis: Electrolyte abnormalities suspected alcoholic liver disease with thrombus cytopenia failure to thrive at home generalized weakness deconditioning debility nutrition microcytic anemia chronic peptic ulcer disease history of hypertension tobacco abuse alcohol abuse - Time Spent with Patient Total time spent providing and/or coordinating discharge services: Greater than 30 minutes Medical - DS: Exam - Constitutional Vitals: Vital Signs Temp Pulse Resp BP BP Pulse Ox 12/10/18 11:46 97.7 F 90 16 107/73 100 12/10/18 08:00 90 99 12/10/18 03:59 132/84 12/10/18 03:00 124/107 12/10/18 02:00 107/71 12/10/18 01:00 110/75 12/10/18 00:00 126/76 12/09/18 23:00 127/76 12/09/18 22:00 168/123 12/09/18 21:00 135/94 12/09/18 20:05 124/76 12/09/18 20:00 98.3 F 12/09/18 18:02 87/63 12/09/18 16:00 97.5 F 98 H 14 93/70 99 12/09/18 15:45 93/70 99 12/09/18 14:41 107/73 12/09/18 14:38 150/137 12/09/18 14:15 98.6 F 99 H 14 107/73 99 Intake and Output 12/09/18 12/10/18 12/10/18 21:59 05:59 13:59 Intake Total 532 360 50 Output Total 400 400 Balance 132 -40 50 Intake: Nourishment/Supplement quantity 240 240 (ml) IV 52 50 Sodium Chloride 0.9% 250 ml @ 52 20 mls/hr IV .[id number] [facility] Rx#: [id number] Rocephin 2 gm In Dextrose 5% in 50 Water 50 ml @ 100 mls/hr IV DAILY [facility] Rx#:[id number] Oral 240 120 Output: Void Amount 400 400 Other: Meal Lunch Dinner Percent of Meal Consumed 75% 50% 25% Feeding Ability Needs Supervision Nourishment/Supplement name Ensure ensure Stool Size Small Small Moderate Stool Color Brown Brown Brown Yellow Green Stool Consistency Liquid Soft # Voids 1 1 # Bowel Movements 2 1 1 # of times incontinent of 2 Bowels Weight 54.658 kg Medical - DS: Data Labs on day of discharge: Labs from last 24 hours 12/10/18 12/10/18 12/09/18 04:00 04:00 Unknown WBC 4.9 RBC 3.46 L Hgb 9.5 L Hct 30.2 L MCV 87.3 MCH 27.4 MCHC 31.4 RDW 19.9 H Plt Count 110 L MPV 9.6 Total Counted 100 Seg Neutrophils % 69 Band Neutrophils % Not Reportable Lymphocytes % 25 Monocytes % (Manual) 3 Eosinophils % (Manual) 1 Reactive Lymphocytes 2 Platelet Estimate Decreased RBC Morphology Abnormal Polychromasia 1+ A Anisocytosis 1+ A Sodium 140 Potassium 4.0 Chloride 103 Carbon Dioxide 25 Anion Gap 12.0 BUN 7 Creatinine 0.5 L GFR Calculation 106 Glucose 86 Uric Acid 3.4 Calcium 9.2 Phosphorus 2.6 L Magnesium 1.8 Total Bilirubin 0.4 Direct Bilirubin < 0.2 GGT 352 H AST 125 H ALT 49 H Alkaline Phosphatase 126 H Lactate Dehydrogenase 339 H Total Protein 6.0 Albumin 3.5 Globulin 2.5 Albumin/Globulin Ratio 1.4 Triglycerides 86 Stool Occult Blood Stool Occult Bld Immuno Negative Stool Occult Blood #2 Stool Occult Blood #3 12/09/18 12/09/18 Unknown 14:55 WBC RBC Hgb 10.6 L Hct 34.0 L MCV MCH MCHC RDW Plt Count MPV Total Counted Seg Neutrophils % Band Neutrophils % Lymphocytes % Monocytes % (Manual) Eosinophils % (Manual) Reactive Lymphocytes Platelet Estimate RBC Morphology Polychromasia Anisocytosis Sodium Potassium Chloride Carbon Dioxide Anion Gap BUN Creatinine GFR Calculation Glucose Uric Acid Calcium Phosphorus Magnesium Total Bilirubin Direct Bilirubin GGT AST ALT Alkaline Phosphatase Lactate Dehydrogenase Total Protein Albumin Globulin Albumin/Globulin Ratio Triglycerides Stool Occult Blood TNP Stool Occult Bld Immuno Stool Occult Blood #2 TNP Stool Occult Blood #3 TNP Medical - DS: A/P - Patient/Caregiver Discharge Instructions Activity: increase activity as tolerated Diet: Regular Diet Prescriptions: Ciprofloxacin [Cipro] 500 mg PO BID #4 tab - Follow up Plan Follow up with: Nahum Munoz PA-C [Primary Care Provider] - Disposition: Home, Self-Care Prognosis: Serious Rehab Potential: Fair Overall status at discharge: patient is back to baseline Medical - DS: Qual - VTE Deep Vein Thrombosis/Pulmonary Embolism Present on Admission: No
[2018-12-10] MEDS ORDERED: ACETAMINOPHEN 325 MG TABLET PO PRN (13:50)
[2018-12-10] MEDS ORDERED: PROMETHAZINE 25 MG/ML VIAL IV PRN (13:50)
[2018-12-10] MEDS ORDERED: ONDANSETRON 4 MG/2 ML VIAL IV PRN (13:50)
[2018-12-10] MEDS ORDERED: ACETAMINOPHEN 800 MG/80 ML BOTTLE IV PRN (13:50)
[2018-12-10] MEDS ORDERED: POTASSIUM CHLORIDE 20 MEQ PACKET PO PRN (13:50)
[2018-12-10] MEDS ORDERED: MAGNESIUM SULFATE 2 GM/50 ML BAG IV PRN (13:50)
[2018-12-10] MEDS ORDERED: SENNOSIDES/DOCUSATE SODIUM 1 TAB TABLET PO SCH (21:00)
[2018-12-11] MEDS: chlordiazePOXIDE 25 MG CAPSULE PO PRN (03:25)
[2018-12-11] MEDS: 0.9 % SODIUM CHLORIDE 10 ML SYRINGE IV SCH (04:23)
[2018-12-11] MEDS ORDERED: PANTOPRAZOLE 40 MG TABLET PO SCH ×2 (07:30)
[2018-12-11] MEDS: CYANOCOBALAMIN (VITAMIN B-12) 500 MCG TABLET PO SCH (08:04)
[2018-12-11] MEDS: NEUTRA PHOS 1 PACKET PO SCH (08:04)
[2018-12-11] MEDS: HEPARIN 5,000 UNIT/ML VIAL SQ SCH (08:07)
[2018-12-11] MEDS: DOCUSATE SODIUM 100 MG CAPSULE PO SCH (08:08)
[2018-12-11] MEDS ORDERED: THIAMINE 100 MG TABLET PO SCH (09:00)
[2018-12-11] MEDS ORDERED: MULTIVIT,THER IRON,CA,FA & MIN 1 TABLET PO SCH (09:00)
[2018-12-11] MEDS ORDERED: cefTRIAXone 2 GM in DEXTROSE 5% IN WATER 50 ML IV SCH (09:00)
[2018-12-11] MEDS ORDERED: CIPROFLOXACIN 500 MG TABLET PO SCH (09:00)
[2018-12-11] MEDS ORDERED: NICOTINE 21 MG PATCH TOPICAL SCH (10:00)
[2018-12-12] MEDS ORDERED: IRON SUCROSE COMPLEX 100 MG/5 ML VIAL IV SCH (09:00)
== END 2018-12-11 13:29 | disposition home or self-care (01) | DRG 897 ==
LOC: ICU 23:38 → ED 23:38 → OBSVTOIN 12-07 10:17 → ICU 12-07 10:20 → MEDSUR 12-10 17:39
PROVIDERS: ADMIT Internal Medicine; ATTEND Internal Medicine

== ENCOUNTER 2019-06-22 00:07 | Inpatient (IN) ==
[2019-06-22] MEDS ORDERED: ONDANSETRON 4 MG/2 ML VIAL IV ONE ×2 (00:36→02:09)
[2019-06-22] MEDS ORDERED: 0.9 % SODIUM CHLORIDE 2,000 ML IV ONE (00:36)
--- NOTE | 2019-06-22 00:39 | Emergency Department Note ---
Weakness HPI - General Chief complaint: Weakness Stated complaint: weakness Time Seen by Provider: 06/22/19 00:22 Source: patient Mode of arrival: EMS Limitations: no limitations - History of Present Illness HPI Narrative: 59-year-old alcoholic female comes in for weakness that started today. She notes nausea and vomiting this evening. In the past when this is happened she has had a UTI. She drinks 1/5 of hard liquor every day. She is very tremulous. No fever. Noted diarrhea - Related Data Home Medications Medication Instructions Recorded Confirmed Calcium Acetate [Phoslo] 667 mg PO TID 04/24/18 12/07/18 Furosemide [Lasix] 40 mg PO DAILY 04/24/18 12/07/18 Lisinopril [Zestril] 2.5 mg PO BID 04/24/18 12/07/18 HYDROcodone/APAP 5/325MG [[place] 1 tab PO Q4HP PRN 12/07/18 12/07/18 5-325Mg] Omeprazole [Prilosec] 2 cap PO BID 12/07/18 12/07/18 Potassium Chloride [Klor-Con M20] 20 meq PO DAILY 12/07/18 12/07/18 Previous Rx's Medication Instructions Recorded Ferrous Sulfate 325 mg PO TIDCC tablet 01/24/18 Folic Acid 1 mg PO DAILY tablet 01/24/18 Multivit,Ther Iron,Ca,FA & Min 1 tab PO DAILY tablet 01/24/18 [Multivitamin W/Minerals] Thiamine [Vitamin B1] 100 mg PO QDAY #0 tablet 01/24/18 Ondansetron [Zofran ODT] 4 mg SL Q4-6HP PRN #10 tab 02/08/18 Ciprofloxacin [Cipro] 500 mg PO BID #4 tab 12/10/18 Allergies Allergy/AdvReac Type Severity Reaction Status Date / Time clarithromycin [From Biaxin] AdvReac Mild Vomiting Verified 12/06/18 23:42 Review of Systems All systems ED: reviewed and negative except as stated. Past Medical History - Past Medical History PMFSH Narrative: Family History (Last Updated 02/09/18 @ 19:39 by Angela Mora MD) Mother Stroke Medical History (Last Updated 02/09/18 @ 20:06 by Angela Mora MD) Alcohol abuse (Acute) Alcoholic hepatitis without ascites (Acute) Diastolic dysfunction (Acute) Frequent falls (Acute) GERD (gastroesophageal reflux disease) (Acute) Hypokalemia (Acute) Hypomagnesemia (Acute) Hyponatremia (Acute) Malnutrition (Acute) Normocytic anemia (Acute) Osteoarthritis (Acute) Peptic ulcer disease (Acute) Pneumonia (Acute) Ribs, multiple fractures (Acute) Past Surgical History (Last Updated 02/09/18 @ 20:01 by Angela Mora MD) H/O knee surgery (Acute) H/O tubal ligation (Acute) Medical history: Reports: CHF, GERD, renal disease, other (malnutrition, failure to thrive, ETOH abuse, anemia, electrolyte imbalance,rhabdo,falls, PNA) Psychiatric history: Reports: anxiety, depression Surgical history ED: Reports: orthopedic, other (knee), tubal ligation - Social History smoking status: Current every day smoker Alcohol use: Reports: Daily, Heavy Drug use: Reports: none Physical Exam Thin female no acute distress. Tremulous. Normocephalic atraumatic. Conjunctive are clear sclera white nonicteric. No nasal discharge or congesti on. Oropharynx with dry buccal mucosa. Posterior pharynx is clear. Neck is supple without lymphadenopathy or thyromegaly. Heart is regular rate and rhythm no murmur appreciated. Lungs are clear to auscultation bilaterally without wheezes rales rhonchi or respiratory distress. Abdomen is soft nontender nondistended. No pedal edema. Alert oriented able answer questions appropriately. Limitations: no limitations Course Vital Signs Temperature 98.2 F 06/22/19 00:10 Pulse Rate 111 H 06/22/19 00:10 Respiratory Rate 18 06/22/19 00:10 Blood Pressure 154/93 06/22/19 00:10 Pulse Oximetry (%) 95 06/22/19 00:10 Temperature 99.3 F H 06/22/19 01:34 Pulse Rate 113 H 06/22/19 06:31 Respiratory Rate 18 06/22/19 00:10 Blood Pressure 132/79 06/22/19 06:31 Pulse Oximetry (%) 96 06/22/19 06:31 Weakness - Lab Data Lab results reviewed: Yes I reviewed the patient's lab results. Result diagrams: 06/22/19 00:40 06/22/19 00:40 Lab Results 06/22/19 06/22/19 06/22/19 Range/Units 00:40 00:40 00:40 WBC 6.2 (4.5-11.0) K/mcL RBC 2.75 L (4.00-5.20) M/mcL Hgb 10.0 L (12.0-15.0) g/dL Hct 29.6 L (36.0-48.0) % POC Hct 31.0 L (36.0-48.0) % MCV 107.3 H (80.0-100.0) fL MCH 36.2 H (26.0-34.0) pg MCHC 33.8 (31.0-36.0) g/dL RDW 16.6 H (11.5-14.5) % Plt Count 191 (140-440) K/mcL MPV 7.0 L (7.4-10.4) fL Gran % 74.5 (38.0-78.0) % Lymph % (Auto) 17.6 (15.5-49.0) % Upson % (Auto) 6.6 (1.0-12.0) % Eos % (Auto) 1.0 (0.0-7.0) % Baso % (Auto) 0.3 (0.0-2.0) % Gran # 4.6 (1.8-8.0) K/mcL Lymph # (Auto) 1.1 L (1.5-4.8) K/mcL Upson # (Auto) 0.4 (0.1-0.9) K/mcL Eos # (Auto) 0.1 (0.0-0.7) K/mcL Baso # (Auto) 0 (0.0-0.3) K/mcL PT (11.9-14.5) sec INR (0.9-1.1) VBG Lactic Acid 5.0 H* (0.5-2.0) mmol/L POC Sodium 137 (133-145) mmol/L Sodium 138 (133-145) mmol/L POC Potassium 2.9 L* (3.3-5.1) mmol/L Potassium 3.0 L (3.3-5.1) mmol/L POC Chloride 101 (96-108) mmol/L Chloride 98 (96-108) mmol/L Carbon Dioxide 19 L (22-30) mmol/L POC Total CO2 21 L (22-30) mmol/L Anion Gap 21.0 H (8-16) POC BUN 4 L (6-20) mg/dl BUN 6 (6-20) mg/dl Creatinine 0.6 (0.6-1.1) mg/dl POC Creatinine 0.7 (0.6-1.1) mg/dl GFR Calculation 99 Glucose 109 H (70-105) mg/dL POC Glucose 109 H (70-105) mg/dL Calcium 7.9 L (8.6-10.4) mg/dl POC WB Ioniz Calcium 0.96 L (1.16-1.32) mmol/L Magnesium 1.2 L (1.6-2.5) mg/dL Total Bilirubin 0.3 (0.0-1.0) mg/dL AST 118 H (0-37) U/l ALT 25 (0-40) U/l Alkaline Phosphatase 131 H (39-117) U/L Troponin T (0-0.03) ng/ml NT-Pro-B Natriuret Pep 288.6 H (0-125) pg/ml Total Protein 5.6 L (5.9-8.4) gm/dL Albumin 2.8 L (3.2-5.2) gm/dL Globulin 2.8 (2.2-3.7) gm/dL Albumin/Globulin Ratio 1.0 (1.0-2.3) Ethyl Alcohol (<0.010) gm/dl 06/22/19 06/22/19 06/22/19 Range/Units 00:40 00:40 00:40 WBC (4.5-11.0) K/mcL RBC (4.00-5.20) M/mcL Hgb (12.0-15.0) g/dL Hct (36.0-48.0) % POC Hct (36.0-48.0) % MCV (80.0-100.0) fL MCH (26.0-34.0) pg MCHC (31.0-36.0) g/dL RDW (11.5-14.5) % Plt Count (140-440) K/mcL MPV (7.4-10.4) fL Gran % (38.0-78.0) % Lymph % (Auto) (15.5-49.0) % Upson % (Auto) (1.0-12.0) % Eos % (Auto) (0.0-7.0) % Baso % (Auto) (0.0-2.0) % Gran # (1.8-8.0) K/mcL Lymph # (Auto) (1.5-4.8) K/mcL Upson # (Auto) (0.1-0.9) K/mcL Eos # (Auto) (0.0-0.7) K/mcL Baso # (Auto) (0.0-0.3) K/mcL PT 12.7 (11.9-14.5) sec INR 1.0 (0.9-1.1) VBG Lactic Acid (0.5-2.0) mmol/L POC Sodium (133-145) mmol/L Sodium (133-145) mmol/L POC Potassium (3.3-5.1) mmol/L Potassium (3.3-5.1) mmol/L POC Chloride (96-108) mmol/L Chloride (96-108) mmol/L Carbon Dioxide (22-30) mmol/L POC Total CO2 (22-30) mmol/L Anion Gap (8-16) POC BUN (6-20) mg/dl BUN (6-20) mg/dl Creatinine (0.6-1.1) mg/dl POC Creatinine (0.6-1.1) mg/dl GFR Calculation Glucose (70-105) mg/dL POC Glucose (70-105) mg/dL Calcium (8.6-10.4) mg/dl POC WB Ioniz Calcium (1.16-1.32) mmol/L Magnesium (1.6-2.5) mg/dL Total Bilirubin (0.0-1.0) mg/dL AST (0-37) U/l ALT (0-40) U/l Alkaline Phosphatase (39-117) U/L Troponin T 0.02 (0-0.03) ng/ml NT-Pro-B Natriuret Pep (0-125) pg/ml Total Protein (5.9-8.4) gm/dL Albumin (3.2-5.2) gm/dL Globulin (2.2-3.7) gm/dL Albumin/Globulin Ratio (1.0-2.3) Ethyl Alcohol < 0.010 (<0.010) gm/dl 06/22/19 Range/Units 00:40 WBC (4.5-11.0) K/mcL RBC (4.00-5.20) M/mcL Hgb (12.0-15.0) g/dL Hct (36.0-48.0) % POC Hct (36.0-48.0) % MCV (80.0-100.0) fL MCH (26.0-34.0) pg MCHC (31.0-36.0) g/dL RDW (11.5-14.5) % Plt Count (140-440) K/mcL MPV (7.4-10.4) fL Gran % (38.0-78.0) % Lymph % (Auto) (15.5-49.0) % [place]pson % (Auto) (1.0-12.0) % Eos % (Auto) (0.0-7.0) % Baso % (Auto) (0.0-2.0) % Gran # (1.8-8.0) K/mcL Lymph # (Auto) (1.5-4.8) K/mcL [place]pson # (Auto) (0.1-0.9) K/mcL Eos # (Auto) (0.0-0.7) K/mcL Baso # (Auto) (0.0-0.3) K/mcL PT (11.9-14.5) sec INR (0.9-1.1) VBG Lactic Acid (0.5-2.0) mmol/L POC Sodium (133-145) mmol/L Sodium (133-145) mmol/L POC Potassium (3.3-5.1) mmol/L Potassium (3.3-5.1) mmol/L POC Chloride (96-108) mmol/L Chloride (96-108) mmol/L Carbon Dioxide (22-30) mmol/L POC Total CO2 (22-30) mmol/L Anion Gap (8-16) POC BUN (6-20) mg/dl BUN (6-20) mg/dl Creatinine (0.6-1.1) mg/dl POC Creatinine (0.6-1.1) mg/dl GFR Calculation Glucose (70-105) mg/dL POC Glucose (70-105) mg/dL Calcium (8.6-10.4) mg/dl POC WB Ioniz Calcium (1.16-1.32) mmol/L Magnesium (1.6-2.5) mg/dL Total Bilirubin (0.0-1.0) mg/dL AST (0-37) U/l ALT (0-40) U/l Alkaline Phosphatase (39-117) U/L Troponin T (0-0.03) ng/ml NT-Pro-B Natriuret Pep (0-125) pg/ml Total Protein (5.9-8.4) gm/dL Albumin (3.2-5.2) gm/dL Globulin (2.2-3.7) gm/dL Albumin/Globulin Ratio (1.0-2.3) Ethyl Alcohol Cancelled (<0.010) gm/dl Urinalysis [id number] dipstick shows moderate leukocytes positive nitrates negative blood specific gravity 1.010 Influenza swab was negative - EKG Data EKG attestation: Yes I reviewed and interpreted this EKG., Yes There are no EKG findings of acute coronary syndrome, Yes This EKG will be read by roughener EKG results narrative: Normal sinus rhythm rate of 98 Disposition Pt seen by TAILER IN/PA only: No Clinical Impression: Hypokalemia, Hypomagnesemia, Gastroenteritis, Weakness UTI (urinary tract infection) Qualifiers: Urinary tract infection type: acute cystitis Hematuria presence: without hematuria Qualified Code(s): N30.00 - Acute cystitis without hematuria Alcohol withdrawal syndrome Qualifiers: Complication of substance-induced condition: with unspecified complication Qualified Code(s): F10.239 - Alcohol dependence with withdrawal, unspecified Summary: UTI on urinalysis [id number] dipstick. Other causes of weakness worked up with laboratory as well. Start IV fluids. Zofran for nausea Preliminary laboratory shows hypokalemia. We will start K rider Also noted low magnesium. Start mag rider. Start Rocephin for UTI as she is not tolerating oral medicines at this time. Blood alcohol level was 0 so she may be going through alcohol withdrawal as well. She still having significant nausea so we will add Reglan. Her temperature is going up but nursing staff notes that EMS had elevated temperature of 100 en route. Will check for flu Flu swab was negative. She received 8 mg of Zofran and 10 mg of Reglan. She is not having any more nausea. She had several episodes of diarrhea where she soiled herself. They got her to a bedpan but will get a bedside commode as well She did not want to go home because she did not feel that she could get up-she continues to feel too weak. Called for admission-nursing staff is short at the moment per housekeeper supervisor. Will monitor in the ER- Will discuss with hospitalist when bed becomes available. We will continue IV fluids in the interim and see if we can get her feeling better We monitored her for a couple more hours and discussed situation with the hospitalist and housekeeper supervisor . Patient continued to be too weak to get up and take care of herself and could not go home. Nausea was controlled. We repeated labs and then I wrote transition orders for hospitalist, Dr. Chao who accepted the patient for further care and evaluation in the hospital Disposition: Xfer As Outpt/Obs ([facility]) Condition: Fair Referrals: Nahum Munoz PA-C [Primary Care Provider] -
[2019-06-22 00:52] LABS: POC Blood Urea Nitrogen 4 mg/dl (6-20); POC CO2 21 mmol/L (22-30); POC Calcium, Ionized 0.96 mmol/L (1.16-1.32); POC Chloride 101 mmol/L (96-108); POC Creatinine 0.7 mg/dl (0.6-1.1); POC Glucose, Random 109 mg/dL (70-105); POC Potassium 2.9 mmol/L (3.3-5.1); POC Sodium 137 mmol/L (133-145)
[2019-06-22] MEDS: POTASSIUM CHLORIDE 20 MEQ in DEXTROSE 5% IN WATER 250 ML IV ONE ×2 (01:06→02:21)
[2019-06-22 01:30] LABS: Basophils # (Auto) 0 K/mcL (0.0-0.3); Basophils % (Auto) 0.3 % (0.0-2.0); Eosinophils # (Auto) 0.1 K/mcL (0.0-0.7); Granulocytes % (Auto) 74.5 % (38.0-78.0); Hematocrit 29.6 % (36.0-48.0); Lymphocytes # (Auto) 1.1 K/mcL (1.5-4.8); Lymphocytes % (Auto) 17.6 % (15.5-49.0); Mean Cell Volume 107.3 fL (80.0-100.0); Mean Corpuscular HGB Conc 33.8 g/dL (31.0-36.0); Monocytes # (Auto) 0.4 K/mcL (0.1-0.9); Monocytes % (Auto) 6.6 % (1.0-12.0); Platelet Count 191 K/mcL (140-440); RBC 2.75 M/mcL (4.00-5.20); Red Cell Distribution Width 16.6 % (11.5-14.5); WBC 6.2 K/mcL (4.5-11.0)
[2019-06-22 01:38] LABS: Prothrombin Time 12.7 sec (11.9-14.5)
[2019-06-22 01:48] LABS: proBNP 288.6 pg/ml (0-125)
[2019-06-22 01:50] LABS: ALT/SGPT 25 U/l (0-40); AST/SGOT 118 U/l (0-37); Albumin 2.8 gm/dL (3.2-5.2); Alkaline Phosphatase 131 U/L (39-117); Bilirubin,Total 0.3 mg/dL (0.0-1.0); Blood Urea Nitrogen 6 mg/dl (6-20); Calcium 7.9 mg/dl (8.6-10.4); Carbon Dioxide 19 mmol/L (22-30); Chloride 98 mmol/L (96-108); Globulin 2.8 gm/dL (2.2-3.7); Glomerular Filtration Rate 99; Glucose 109 mg/dL (70-105)
[2019-06-22 02:11] LABS: Alcohol, Blood < 10.0 mg/dL (<10); Alcohol,Blood < 0.010 gm/dl (<0.010)
[2019-06-22] MEDS ORDERED: METOCLOPRAMIDE 10 MG/2 ML VIAL IV ONE ×2 (02:20→07:10)
[2019-06-22] MEDS ORDERED: cefTRIAXone 1 GM VIAL IV ONE ×2 (02:20→10:15)
[2019-06-22] MEDS ORDERED: MAGNESIUM SULFATE 8.12 MEQ in DEXTROSE 5% IN WATER 50 ML IV ONE (02:20)
[2019-06-22] MEDS ORDERED: 0.9 % SODIUM CHLORIDE 1,000 ML IV SCH ×2 (04:00→07:15)
[2019-06-22] MEDS ORDERED: ACETAMINOPHEN 325 MG TABLET PO PRN ×2 (07:08→09:47)
[2019-06-22] MEDS ORDERED: HYDROcodone/APAP 5/325MG TABLET PO PRN (07:08)
[2019-06-22] MEDS ORDERED: ONDANSETRON 4 MG/2 ML VIAL IV PRN (07:08)
[2019-06-22 08:32] LABS: POC Blood Urea Nitrogen < 3 mg/dl (6-20); POC CO2 20 mmol/L (22-30); POC Calcium, Ionized 0.95 mmol/L (1.16-1.32); POC Chloride 101 mmol/L (96-108); POC Creatinine 0.7 mg/dl (0.6-1.1); POC Glucose, Random 123 mg/dL (70-105); POC Sodium 137 mmol/L (133-145)
[2019-06-22] MEDS ORDERED: POTASSIUM CHLORIDE 20 MEQ PACKET PO PRN (09:47)
[2019-06-22] MEDS ORDERED: POTASSIUM CHLORIDE 40 MEQ in DEXTROSE 5% IN WATER 500 ML IV PRN (09:47)
[2019-06-22] MEDS ORDERED: ONDANSETRON 4 MG ODT TABLET SL PRN (09:47)
[2019-06-22] MEDS ORDERED: ACETAMINOPHEN 650 MG/65 ML BOTTLE IV PRN (09:47)
[2019-06-22] MEDS ORDERED: BISACODYL 10 MG SUPP.RECT PR PRN (09:47)
[2019-06-22] MEDS ORDERED: POLYETHYLENE GLYCOL 3350 17 GM PACKET PO PRN (09:47)
[2019-06-22] MEDS ORDERED: LACTATED RINGERS 1,000 ML IV ONE (10:00)
--- NOTE | 2019-06-22 10:01 | Internal Med History&Physical ---
Medical - H&P: HPI Patient information: Note initiated : 06/22/19 at 9:55 am Service Date, if different from initiated Date: [] Patient: Do Cantu 59 y/o F admitted on 06/22/19 for weakness. Chief Complaint: [] Chief complaint: Weakness, NAusea History of present illness: Ms. Cantu is a 59 year old F with a history of chronic alcoholism drinking upto a 5th of whisky presents to the ER with increasing nausea and abdominal discomfort over the last few days worsening in the last 2 4 hours, No associated bloody emesis, she also has associated loss of appetite and has been unable to eat or drink in the last 48 hours. She also had an episode of diarrhea and vomiting. She denies associated chest pain, weight loss, fever, headache, lightheadedness, chest palpitation. Initial workup in the ER was consistent with UTI with urine dip. UA is pending. Also potassium at 2.9 magnesium 1 and was started on replacement. She received 2 L of crystalloids, 1 g Rocephin, Zofran and Reglan. Initial CIWA score 6. Subsequently hospitalist service was consulted for admission. She was also noted to have multiple episodes of diarrhea. She became incontinent. She was extremely weak At the time evaluation patient is lethargic but able to answer most of the questions. She appears anxious but no signs of tremors or hallucination. She is mild tachycardia she denies changes in medications, she lives alone and does not have any family support except for a friend who visits her intermittently. She has been surviving on canned foods. She denies recent falls or injuries but endorses to generalized aches and weight pains. Review of systems A 10 point review system was performed and is negative except was cussed above Medical - H&P: PMH Medical history: Congestive heart failure Gastroesophageal reflux disease History of renal failure Malnutrition with failure to thrive Alcohol abuse Anemia of chronic disease Anxiety with depression Alcoholic hepatitis. History of multiple rib fractures History of alcohol-induced coagulopathy Past surgical history: Left knee surgery Tubal ligation Past family history: History of colon cancer Past social history: Everyday smoker Everyday drinker Lives alone No history of drug use Smoking status: Current every day smoker (Half pack) Have you smoked in the last 12 months: Yes Time spent discussing smoking cessation with patient: 3 to 10 minutes Drug use: none Alcohol use: heavy Medical - H&P: Meds Home Medications Medication Instructions Recorded Confirmed Type Ferrous Sulfate 325 mg PO TIDCC tablet 01/24/18 04/24/18 Rx Folic Acid 1 mg PO DAILY tablet 01/24/18 04/24/18 Rx Multivit,Ther Iron,Ca,FA & Min 1 tab PO DAILY tablet 01/24/18 04/24/18 Rx [Multivitamin W/Minerals] Thiamine [Vitamin B1] 100 mg PO QDAY #0 tablet 01/24/18 04/24/18 Rx Ondansetron [Zofran ODT] 4 mg SL Q4-6HP PRN #10 tab 02/08/18 04/24/18 Rx Calcium Acetate [Phoslo] 667 mg PO TID 04/24/18 12/07/18 History Furosemide [Lasix] 40 mg PO DAILY 04/24/18 12/07/18 History Lisinopril [Zestril] 2.5 mg PO BID 04/24/18 12/07/18 History HYDROcodone/APAP 5/325MG [[place] 1 tab PO Q4HP PRN 12/07/18 12/07/18 History 5-325Mg] Omeprazole [Prilosec] 2 cap PO BID 12/07/18 12/07/18 History Potassium Chloride [Klor-Con M20] 20 meq PO DAILY 12/07/18 12/07/18 History Ciprofloxacin [Cipro] 500 mg PO BID #4 tab 12/10/18 Rx Allergies Allergy/AdvReac Type Severity Reaction Status Date / Time clarithromycin [From Biaxin] AdvReac Mild Vomiting Verified 12/06/18 23:42 Medical - H&P: Exam - Constitutional Vitals: Temp Pulse Resp BP Pulse Ox 99.3 F H 113 H 18 132/79 93 06/22/19 07:45 06/22/19 06:31 06/22/19 07:45 06/22/19 07:45 06/22/19 09:48 General appearance: no acute distress Exam: Fatigue but anxious Head normocephalic Oral cavity dry Temporal wasting No scleral icterus No ear nose discharge Neck no lymphadenopathy S1-S2 regular rhythm no murmur Diminished breath sounds with expiratory rhonchi Abdomen soft nontender Lower extremity no cyanosis clubbing no joint swelling Skin no suspicious lesion Psych alert cooperative but anxious Neuro nonfocal Medical - H&P: Reslt - Labs CBC & Chem 7: 06/22/19 00:40 06/22/19 00:40 Labs: Short CBC 06/22/19 Range/Units 00:40 WBC 6.2 (4.5-11.0) K/mcL Hgb 10.0 L (12.0-15.0) g/dL Hct 29.6 L (36.0-48.0) % Plt Count 191 (140-440) K/mcL BMP 06/22/19 00:40 Sodium 138 Potassium 3.0 L Chloride 98 Carbon Dioxide 19 L BUN 6 Creatinine 0.6 Glucose 109 H Calcium 7.9 L Cardiac Enzymes 06/22/19 Range/Units 00:40 Troponin T 0.02 (0-0.03) ng/ml Liver Function 06/22/19 Range/Units 00:40 Total Bilirubin 0.3 (0.0-1.0) mg/dL AST 118 H (0-37) U/l ALT 25 (0-40) U/l Alkaline Phosphatase 131 H (39-117) U/L Albumin 2.8 L (3.2-5.2) gm/dL Medical - H&P: A/P (1) Complicated UTI (urinary tract infection) Current visit: Yes Status: Acute * Complicated UTI-continue Rocephin and de-escalate based on c * Severe nausea unclear etiology. Abdominal imaging if persistent * Hypomagnesemia magnesium 1-continue replacement * Volume depletion with a lactic acid at 5-continue aggressive crystalloids. Trend serial lactate * Alcohol withdrawal/alcohol abuse-start Librium/oral alcohol. Patient has no desire to discontinue alcohol * Tobacco dependence refuses nicotine patch * Weakness/deconditioning-aggressive PT OT/nutrition support * Protein calorie malnutrition-dietitian consult for high-protein calorie supplements. Start aggressive multivitamin/electrolyte replacement to prevent refeeding * Microcytic anemia-hemoglobin at 10. Stable * Alcoholic liver disease with elevated LFTs * History of hypertension restart lisinopril * Full code * Prophylaxis heparin Plan * Observation admission * Crystalloids and antibiotics * PT OT and nutrition support * Electrolyte replacement * Oral alcohol/benzodiazepines for withdrawal symptoms * Resume home medications * Case management to coordinate safe discharge plan
[2019-06-22] MEDS: LACTATED RINGERS 1,000 ML IV SCH ×2 (10:20→19:56)
[2019-06-22] MEDS: NEUTRA PHOS 1 PACKET PO SCH (10:25)
[2019-06-22] MEDS: POTASSIUM CHLORIDE 20 MEQ/15 ML ML PO SCH ×2 (10:25→17:50)
[2019-06-22] MEDS: chlordiazePOXIDE 25 MG CAPSULE PO PRN (10:37)
[2019-06-22] MEDS: 0.9 % SODIUM CHLORIDE 10 ML SYRINGE IV SCH ×2 (14:52→20:28)
[2019-06-22 17:19] LABS: Appearance,Urine HAZY; Bacteria,Urine FEW /hpf (0); Bilirubin,Urine NEG (NEG); Color,Urine YELLOW; Culture Indicated,Urine YES; Glucose,Urine (UA) NEGATIVE (NEG); Ketones,Urine NEG (NEG); Leukocyte Esterase,Urine 75 /uL (NEG); Mucus,Urine FEW /hpf (0); Nitrate,Urine POS (NEG); Protein,Urine NEG (NEG); Specific Gravity,Urine 1.012 (1.000-1.035); Urine Amorphous Crystals FEW /hpf (0); Urine Blood NEG mg/dL (<0.03); Urine Hyaline Cast 3 /lpf (0-2); Urine RBC 1 /hpf (0-1); Urine Squamous Epithelial Cell < 1 /hpf (0-4); Urine WBC 9 /hpf (0-4)
[2019-06-22] MEDS: HEPARIN 5,000 UNIT/ML VIAL SQ SCH (20:28)
[2019-06-22] MEDS: DOCUSATE SODIUM 100 MG CAPSULE PO SCH ×2 (20:28→20:39)
[2019-06-22] MEDS: CYANOCOBALAMIN (VITAMIN B-12) 500 MCG TABLET PO SCH (20:28)
[2019-06-22] MEDS: NICOTINE 14 MG PATCH TOPICAL SCH (20:28)
[2019-06-22] MEDS: SENNOSIDES/DOCUSATE SODIUM 1 TAB TABLET PO SCH ×2 (20:28→20:39)
[2019-06-23] MEDS ORDERED: LORazepam 2 MG/ML VIAL ONE ×4 (00:14→05:59)
[2019-06-23] MEDS: LORazepam 2 MG/ML VIAL IV PRN ×7 (00:21→22:10)
[2019-06-23] MEDS: LACTATED RINGERS 1,000 ML IV SCH (05:28)
[2019-06-23] MEDS: 0.9 % SODIUM CHLORIDE 10 ML SYRINGE IV SCH ×3 (05:31→21:11)
[2019-06-23 06:19] LABS: Hemoglobin 9.5 g/dL (12.0-15.0); Mean Cell Volume 109.2 fL (80.0-100.0); Mean Corpuscular HGB Conc 32.7 g/dL (31.0-36.0); Mean Platelet Volume 7.8 fL (7.4-10.4); Platelet Count 135 K/mcL (140-440); RBC 2.65 M/mcL (4.00-5.20); Red Cell Distribution Width 16.5 % (11.5-14.5); WBC 4.6 K/mcL (4.5-11.0)
[2019-06-23 06:34] LABS: ALT/SGPT 27 U/l (0-40); AST/SGOT 102 U/l (0-37); Albumin 2.5 gm/dL (3.2-5.2); Albumin/Globulin Ratio 1.1 (1.0-2.3); Alkaline Phosphatase 117 U/L (39-117); Bilirubin,Direct < 0.2 mg/dL (0.0-0.3); Bilirubin,Total 0.5 mg/dL (0.0-1.0); Calcium 7.6 mg/dl (8.6-10.4); Chloride 104 mmol/L (96-108); Globulin 2.3 gm/dL (2.2-3.7); Glomerular Filtration Rate 99; Glucose 78 mg/dL (70-105); Lactate Dehydrogenase 410 U/L (94-250); Phosphorous 2.6 mg/dL (2.7-4.5); Triglycerides 79 mg/dl (<150); Uric Acid 4.8 mg/dL (2.5-8.0)
[2019-06-23 06:35] LABS: Blood Urea Nitrogen 2 mg/dl (6-20); Carbon Dioxide 23 mmol/L (22-30)
[2019-06-23] MEDS: MAGNESIUM SULFATE 2 GM/50 ML BAG IV PRN (07:00)
[2019-06-23 07:08] LABS: Anisocytosis 1+ (NONE SEEN); Basophils % (Manual) 1 % (0-2); Eosinophils % (Manual) 1 % (0-7); Hypochromasia 1+ (NONE SEEN); Lymphocytes % 31 % (15-49); Macrocytosis 2+ (NONE SEEN); Monocytes % (Manual) 5 % (1-12); Nucleated Red Blood Cells 1 % (0-0); Platelet Estimate DECREASED (NORMAL); Polychromasia 1+ (NONE SEEN); RBC Morphology ABNORM (NORMAL); Reactive Lymphocytes 1 % (0-2); Segmented Neutrophils % 61 % (38-78)
--- NOTE | 2019-06-23 08:19 | Internal Med Progress Note ---
Medical - PN: Subj Patient information: Note initiated : 06/23/19 at 8:17 am Service Date, if different from initiated Date: [] Patient: Do Cantu a 59 y/o F admitted on 06/22/19 for weakness. Chief Complaint: [] Interval history: Ms. Cantu is a 59 year old F with a history of chronic alcoholism drinking up to a 5th of whisky presents to the ER with increasing nausea and abdominal discomfort over the last few days worsening in the last 2 4 hours, No associated bloody emesis, she also has associated loss of appetite and has been unable to eat or drink in the last 48 hours. She also had an episode of diarrhea and vomiting. She denies associated chest pain, weight loss, fever, headache, lightheadedness, chest palpitation. Initial workup in the ER was consistent with UTI with urine dip. UA is pending. Also potassium at 2.9 magnesium 1 and was started on replacement. She received 2 L of crystalloids, 1 g Rocephin, Zofran and Reglan. Initial CIWA score 6. Subsequently hospitalist service was consulted for admission. She was also noted to have multiple episodes of diarrhea. She became incontinent. She was extremely weak At the time evaluation patient is lethargic but able to answer most of the questions. She appears anxious but no signs of tremors or hallucination. She is mild tachycardia she denies changes in medications, she lives alone and does not have any family support except for a friend who visits her intermittently. She has been surviving on canned foods. She denies recent falls or injuries but endorses to generalized aches and weight pains. 06/23 -patient in [place] DTs despite oral alcohol. Discontinue alcohol and start CIWA protocol. Elevated lactate. Continue supportive management with crystalloids/IV MVI. Low magnesium and potassium on replacement. Mild cystitis, diarrhea improved. DC antibiotic coverage. - Constitutional Vitals: Vital Signs Temp Pulse Resp BP Pulse Ox 97.4 F 117 H 16 119/66 95 06/23/19 07:01 06/22/19 17:28 06/23/19 07:12 06/23/19 07:01 06/23/19 07:01 Period Temp Pulse Resp BP Sys/Manning Pulse Ox Last 24 Hr 97.2 F-98.6 F 89-122 15-26 90-152/53-97 91-99 Intake and Output 06/22/19 06/23/19 06/23/19 21:59 05:59 13:59 Intake Total 1019 2012 Output Total 1153 400 Balance -133 1613 Weight 113 lb 12.8 oz Intake & Output: Intake & Output 06/22/19 06/23/19 06/23/19 21:59 05:59 13:59 Intake Total 1019 2012 Output Total 1153 400 Balance -133 1613 Weight 113 lb 12.8 oz Intake: IV 960 1953 Lactated Ringers 1,000 ml @ 045 695 2680 mls/hr IV .Q10H [facility] Rx#: [id number] Oral 60 60 Output: Urine Catheter Amount 200 Void Amount 600 400 # of times incontinent of urine 3 Stool 350 Other: Urine Appearance Clear Clear Urine Color Bright Yellow Bright Yellow Stool Size Small Stool Color Green Stool Consistency Loose # Voids 1 # Bowel Movements 1 # of times incontinent of 1 Bowels General appearance: moderate distress (Confused and anxious and agitated) Exam: Significant psychomotor agitation Tachycardia Nonlabored breathing Nondistended abdomen Medical - PN: Obj Da - Labs CBC & Chem 7: 06/23/19 03:55 06/23/19 03:55 Labs: Abnormal Lab Results 06/23/19 06/23/19 06/22/19 03:55 03:55 18:34 RBC 2.65 L Hgb 9.5 L Hct 29.0 L POC Hct MCV 109.2 H MCH 35.7 H RDW 16.5 H Plt Count 135 L MPV Lymph # (Auto) Nucleated RBCs 1 H RBC Morphology Abnorm A Polychromasia 1+ A Hypochromasia 1+ A Anisocytosis 1+ A Macrocytosis 2+ A VBG Lactic Acid 4.7 H* POC Potassium Potassium 3.1 L Carbon Dioxide POC Total CO2 Anion Gap POC BUN BUN 2 L Glucose POC Glucose Calcium 7.6 L POC WB Ioniz Calcium Phosphorus 2.6 L Magnesium 1.2 L GGT 283 H AST 102 H Alkaline Phosphatase Lactate Dehydrogenase 410 H NT-Pro-B Natriuret Pep Total Protein 4.8 L Albumin 2.5 L Urine Nitrate Urine Urobilinogen Ur Leukocyte Esterase Urine WBC Amorphous Crystals Urine Bacteria Hyaline Casts 06/22/19 06/22/19 06/22/19 11:52 08:20 08:20 RBC Hgb Hct POC Hct 33.0 L MCV MCH RDW Plt Count MPV Lymph # (Auto) Nucleated RBCs RBC Morphology Polychromasia Hypochromasia Anisocytosis Macrocytosis VBG Lactic Acid 4.8 H* 4.4 H* POC Potassium 3.0 L Potassium Carbon Dioxide POC Total CO2 20 L Anion Gap POC BUN < 3 L BUN Glucose POC Glucose 123 H Calcium POC WB Ioniz Calcium 0.95 L Phosphorus Magnesium 1.3 L GGT AST Alkaline Phosphatase Lactate Dehydrogenase NT-Pro-B Natriuret Pep Total Protein Albumin Urine Nitrate Urine Urobilinogen Ur Leukocyte Esterase Urine WBC Amorphous Crystals Urine Bacteria Hyaline Casts 06/22/19 06/22/19 06/22/19 00:40 00:40 00:40 RBC 2.75 L Hgb 10.0 L Hct 29.6 L POC Hct 31.0 L MCV 107.3 H MCH 36.2 H RDW 16.6 H Plt Count MPV 7.0 L Lymph # (Auto) 1.1 L Nucleated RBCs RBC Morphology Polychromasia Hypochromasia Anisocytosis Macrocytosis VBG Lactic Acid 5.0 H* POC Potassium 2.9 L* Potassium 3.0 L Carbon Dioxide 19 L POC Total CO2 21 L Anion Gap 21.0 H POC BUN 4 L BUN Glucose 109 H POC Glucose 109 H Calcium 7.9 L POC WB Ioniz Calcium 0.96 L Phosphorus Magnesium 1.2 L GGT AST 118 H Alkaline Phosphatase 131 H Lactate Dehydrogenase NT-Pro-B Natriuret Pep 288.6 H Total Protein 5.6 L Albumin 2.8 L Urine Nitrate Urine Urobilinogen Ur Leukocyte Esterase Urine WBC Amorphous Crystals Urine Bacteria Hyaline Casts 06/22/19 00:00 RBC Hgb Hct POC Hct MCV MCH RDW Plt Count MPV Lymph # (Auto) Nucleated RBCs RBC Morphology Polychromasia Hypochromasia Anisocytosis Macrocytosis VBG Lactic Acid POC Potassium Potassium Carbon Dioxide POC Total CO2 Anion Gap POC BUN BUN Glucose POC Glucose Calcium POC WB Ioniz Calcium Phosphorus Magnesium GGT AST Alkaline Phosphatase Lactate Dehydrogenase NT-Pro-B Natriuret Pep Total Protein Albumin Urine Nitrate Pos A Urine Urobilinogen 2.0 A Ur Leukocyte Esterase 75 A Urine WBC 9 H Amorphous Crystals Few A Urine Bacteria Few A Hyaline Casts 3 H Meds: Medications Acetaminophen (Tylenol) 650 mg PO Q4-6HP PRN; Protocol PRN Reason: Per Pain Protocol/Fever > 101 Hydrocodone Bitart/Acetaminophen ([place] 5/325mg) 1 tab PO Q4HP PRN PRN Reason: PAIN LEVEL 3-6 Bisacodyl (Dulcolax) 10 mg [place] Q2-3DAYS PRN PRN Reason: Constipation Chlordiazepoxide HCl (Librium) 25 mg PO Q6HP PRN PRN Reason: Alcohol Withdrawal Last Admin: 06/22/19 10:37 Dose: 25 mg Documented by: Cyanocobalamin (Vitamin B-12) 1,000 mcg PO BID [facility] Stop: 06/27/19 09:01 Last Admin: 06/22/19 20:28 Dose: 1,000 mcg Documented by: Docusate Sodium (Colace) 100 mg PO BID [facility] Last Admin: 06/22/19 20:39 Dose: Not Given Documented by: Folic Acid (Folic Acid) 1 mg PO DAILY [facility] Heparin Sodium (Porcine) (Heparin) 5,000 unit SQ Q12 [facility] Last Admin: 06/22/19 20:28 Dose: 5,000 unit Documented by: Lactated Ringer's (Lactated Ringers) 1,000 mls @ 100 mls/hr IV .Q10H [facility] Stop: 06/23/19 15:59 Last Admin: 06/23/19 05:28 Dose: 100 mls/hr Documented by: Acetaminophen (Ofirmev) 650 mg in 65 mls @ 130 mls/hr IV Q6HP PRN; Protocol PRN Reason: Per Pain Protocol/Fever > 101 Potassium Chloride 40 meq/ (Dextrose) 520 mls @ 130 mls/hr IV UD PRN PRN Reason: K+ = or < 3.5 Magnesium Sulfate (Magnesium Sulfate) 2 gm in 50 mls @ 50 mls/hr IV UD PRN PRN Reason: MG = or < 1.7 Ceftriaxone Sodium 2 gm/ (Dextrose) 50 mls @ 100 mls/hr IV DAILY [facility]; Protocol Iron Carb/Multivit/[place]/Folic Acid (Multivitamin W/Minerals) 1 tab PO DAILY [facility] Lorazepam (Ativan) 1 - 4 mg IV Q1HP PRN; Protocol PRN Reason: Alcohol Withdrawal Melatonin (Melatonin 3mg Tablet) 3 mg PO HSP PRN PRN Reason: Insomnia Nicotine (Nicoderm) 14 mg TOPICAL DAILY@1000 [facility] Last Admin: 06/22/19 20:28 Dose: 14 mg Documented by: Ondansetron HCl (Zofran) 4 mg IV Q4HP PRN PRN Reason: Nausea And Vomiting Last Admin: 06/22/19 18:40 Dose: 4 mg Documented by: Ondansetron HCl (Zofran Odt) 4 mg SL Q4-6HP PRN; Protocol PRN Reason: Nausea And Vomiting Polyethylene Glycol (Miralax) 17 gm PO DAILYP PRN PRN Reason: Constipation Potassium Chloride (Klor-Con) 40 meq PO DAILYP PRN PRN Reason: K+ < 3.5 Potassium Chloride (Potassium Chloride) 15 meq PO BIDCC [facility] Last Admin: 06/22/19 17:50 Dose: 15 meq Documented by: Potassium/Phosphorus/Sodium (Neutra Phos) 2 packet PO DAILY [facility] Stop: 06/30/19 09:01 Last Admin: 06/22/19 10:25 Dose: 2 packet Documented by: Senna/Docusate Sodium (Senna Plus Tablet) 1 tab PO HS [facility] Last Admin: 06/22/19 20:39 Dose: Not Given Documented by: Sodium Chloride (Saline Flush) 10 ml IV Q8 [facility] Last Admin: 06/23/19 05:31 Dose: Not Given Documented by: Thiamine HCl (Vitamin B1) 100 mg PO DAILY [facility] Medical - PN: A/P - Time Spent With Patient Total time spent is greater than 50% in coordination of care (as documented) at patient's floor/unit and/or counseling patient: 25 - 35 minutes (1) Complicated UTI (urinary tract infection) Status: Acute Assessment and plan: * Active DT secondary to withdrawal-continue supportive management with crystalloids/benzodiazepines/multivitamins * Low potassium magnesium on aggressive replacement * Volume depletion with lactic acidosis. Clinically improving with crystalloids. * Acute uncomplicated cystitis DC antibiotics. * Tobacco dependence refuses nicotine patch * Weakness/deconditioning-attempt PT OT * Protein calorie malnutrition-dietitian consult for high-protein calorie supplements. * Microcytic anemia-hemoglobin at 10. Stable * Alcoholic liver disease with elevated LFTs * History of hypertension continue lisinopril * Full code * Prophylaxis heparin Plan * Transition to inpatient status in light of active DTs * CIWA protocol * Discontinue antibiotics * Attempt PT OT * Continue nutrition support * Electrolyte replacement * Case management to coordinate safe discharge plan Current Visit: Yes Medical - PN: Qual - VTE Deep Vein Thrombosis/Pulmonary Embolism Present on Admission: No
[2019-06-23] MEDS ORDERED: cefTRIAXone 2 GM in DEXTROSE 5% IN WATER 50 ML IV SCH (09:00)
[2019-06-23] MEDS: DOCUSATE SODIUM 100 MG CAPSULE PO SCH ×2 (10:29→21:06)
[2019-06-23] MEDS: NICOTINE 14 MG PATCH TOPICAL SCH (10:42)
[2019-06-23] MEDS: NEUTRA PHOS 1 PACKET PO SCH (10:42)
[2019-06-23] MEDS: POTASSIUM CHLORIDE 20 MEQ/15 ML ML PO SCH ×2 (10:42→15:49)
[2019-06-23] MEDS: HEPARIN 5,000 UNIT/ML VIAL SQ SCH ×2 (10:42→21:11)
[2019-06-23] MEDS: CYANOCOBALAMIN (VITAMIN B-12) 500 MCG TABLET PO SCH ×2 (10:43→21:11)
[2019-06-23] MEDS: chlordiazePOXIDE 25 MG CAPSULE PO PRN ×2 (10:43→21:39)
[2019-06-23] MEDS: FOLIC ACID 1 MG TABLET PO SCH (10:43)
[2019-06-23] MEDS: MULTIVIT,THER IRON,CA,FA & MIN 1 TABLET PO SCH (10:43)
[2019-06-23] MEDS: THIAMINE 100 MG TABLET PO SCH (10:43)
[2019-06-23] MEDS: SENNOSIDES/DOCUSATE SODIUM 1 TAB TABLET PO SCH (21:07)
[2019-06-23] MEDS: MELATONIN 3 MG TABLET PO PRN (21:27)
[2019-06-24] MEDS: LORazepam 2 MG/ML VIAL IV PRN (00:58)
[2019-06-24 06:20] LABS: Hematocrit 28.2 % (36.0-48.0); Hemoglobin 9.1 g/dL (12.0-15.0); Mean Cell Volume 109.5 fL (80.0-100.0); Mean Corpuscular HGB Conc 32.5 g/dL (31.0-36.0); Platelet Count 138 K/mcL (140-440); RBC 2.57 M/mcL (4.00-5.20); Red Cell Distribution Width 15.9 % (11.5-14.5); WBC 4.4 K/mcL (4.5-11.0)
[2019-06-24] MEDS: 0.9 % SODIUM CHLORIDE 10 ML SYRINGE IV SCH ×4 (06:36→21:14)
[2019-06-24 06:50] LABS: ALT/SGPT 24 U/l (0-40); AST/SGOT 66 U/l (0-37); Albumin 2.3 gm/dL (3.2-5.2); Albumin/Globulin Ratio 0.9 (1.0-2.3); Alkaline Phosphatase 114 U/L (39-117); Bilirubin,Direct < 0.2 mg/dL (0.0-0.3); Bilirubin,Total 0.3 mg/dL (0.0-1.0); Blood Urea Nitrogen 2 mg/dl (6-20); Calcium 8.2 mg/dl (8.6-10.4); Carbon Dioxide 23 mmol/L (22-30); Chloride 103 mmol/L (96-108); Globulin 2.6 gm/dL (2.2-3.7); Glomerular Filtration Rate 105; Glucose 83 mg/dL (70-105); Lactate Dehydrogenase 387 U/L (94-250); Phosphorous 2.7 mg/dL (2.7-4.5); Triglycerides 86 mg/dl (<150); Uric Acid 4.9 mg/dL (2.5-8.0)
[2019-06-24 07:38] LABS: Anisocytosis 1+ (NONE SEEN); Band Neutrophils % 1 % (0-10); Eosinophils % (Manual) 1 % (0-7); Lymphocytes % 36 % (15-49); Macrocytosis 2+ (NONE SEEN); Monocytes % (Manual) 2 % (1-12); Platelet Estimate DECREASED (NORMAL); Polychromasia FEW (NONE SEEN); RBC Morphology ABNORM (NORMAL); Segmented Neutrophils % 60 % (38-78)
[2019-06-24] MEDS: POTASSIUM CHLORIDE 20 MEQ/15 ML ML PO SCH ×2 (08:47→18:28)
[2019-06-24] MEDS: THIAMINE 100 MG TABLET PO SCH (08:47)
[2019-06-24] MEDS: NEUTRA PHOS 1 PACKET PO SCH (08:47)
[2019-06-24] MEDS: MULTIVIT,THER IRON,CA,FA & MIN 1 TABLET PO SCH (08:47)
[2019-06-24] MEDS: HEPARIN 5,000 UNIT/ML VIAL SQ SCH ×2 (08:48→21:14)
[2019-06-24] MEDS: CYANOCOBALAMIN (VITAMIN B-12) 500 MCG TABLET PO SCH ×2 (08:48→21:14)
[2019-06-24] MEDS: DOCUSATE SODIUM 100 MG CAPSULE PO SCH ×3 (08:48→21:22)
[2019-06-24] MEDS: FOLIC ACID 1 MG TABLET PO SCH (08:48)
[2019-06-24] MEDS: MAGNESIUM SULFATE 2 GM/50 ML BAG IV PRN (08:49)
[2019-06-24] MEDS ORDERED: VANCOMYCIN PER PHARMACY IV SCH (11:05)
--- NOTE | 2019-06-24 11:09 | Internal Med Progress Note ---
Medical - PN: Subj Patient information: Note initiated : 06/24/19 at 11:08 am Service Date, if different from initiated Date: [] Patient: Do Cantu a 59 y/o F admitted on 06/23/19 for weakness. Chief Complaint: [] Interval history: Ms. Cantu is a 59 year old F with a history of chronic alcoholism drinking upto a 5th of whisky presents to the ER with increasing nausea and abdominal discomfort over the last few days worsening in the last 2 4 hours, No associated bloody emesis, she also has associated loss of appetite and has been unable to eat or drink in the last 48 hours. She also had an episode of diarrhea and vomiting. She denies associated chest pain, weight loss, fever, headache, lig htheadedness, chest palpitation. Initial workup in the ER was consistent with UTI with urine dip. UA is pending. Also potassium at 2.9 magnesium 1 and was started on replacement. She received 2 L of crystalloids, 1 g Rocephin, Zofran and Reglan. Initial CIWA score 6. Subsequently hospitalist service was consulted for admission. She was also noted to have multiple episodes of diarrhea. She became incontinent. She was extremely weak At the time evaluation patient is lethargic but able to answer most of the questions. She appears anxious but no signs of tremors or hallucination. She is mild tachycardia she denies changes in medications, she lives alone and does not have any family support except for a friend who visits her intermittently. She has been surviving on canned foods. She denies recent falls or injuries but endorses to generalized aches and weight pains. 06/23 -patient in [place] DTs despite oral alcohol. Discontinue alcohol and start CIWA protocol. Elevated lactate. Continue supportive management with crystalloids/IV MVI. Low magnesium and potassium on replacement. Mild cystitis, diarrhea improved. DC antibiotic coverage. 06/24-her delirium is slightly improved, continuing IV fluid hydration and CIWA protocol she was drowsy this morning, urine culture positive for coagulase- negative staph-we will start her on vancomycin Pertinent ROS: Review of systems-unable to obtain due to mental status - Constitutional Vitals: Vital Signs Temp Pulse Resp BP Pulse Ox 97.7 F 103 H 23 H 105/74 92 06/24/19 10:01 06/23/19 21:22 06/24/19 10:01 06/24/19 10:01 06/24/19 10:01 Period Temp Pulse Resp BP Sys/Manning Pulse Ox Last 24 Hr 96.6 F-100.6 F 89-103 16-31 89-132/59-97 90-100 Intake and Output 06/23/19 06/24/19 06/24/19 21:59 05:59 13:59 Intake Total 1240 400 Output Total 2 1 Balance 1238 399 Weight 113 lb 8 oz Intake & Output: Intake & Output 06/23/19 06/24/19 06/24/19 21:59 05:59 13:59 Intake Total 1240 400 Output Total 2 1 Balance 1238 399 Weight 113 lb 8 oz Intake: IV 1000 Lactated Ringers 1,000 ml @ 100 1000 mls/hr IV .Q10H [facility] Rx#: [id number] Oral 240 400 Output: Void Amount 0 # of times incontinent of urine 2 1 Other: Meal ensure Breakfast Percent of Meal Consumed 100% 100% Feeding Ability Total Assistance Total Assistance Urine Color Dark Yellow # Voids 1 - Head Head exam: Present: atraumatic, normal inspection, normocephalic - Eye Eye exam: Present: normal appearance, scleral icterus - ENT ENT exam: Present: mucous membranes dry, normal exam - Neck Neck exam: Absent: lymphadenopathy, meningismus - Respiratory Respiratory exam: Present: normal respiratory exam. Absent: accessory muscle use, respiratory distress - Cardiovascular Cardiovascular exam: Absent: bradycardia, clicks, diastolic murmur - GI/Abdominal GI/Abdominal exam: Present: soft, distended. Absent: guarding - Neurological Exam Neurological exam: Present: alert, oriented X3 Medical - PN: Obj Da - Labs CBC & Chem 7: 06/24/19 04:00 06/24/19 04:00 Labs: Abnormal Lab Results 06/24/19 06/24/19 06/23/19 04:00 04:00 03:55 WBC 4.4 L RBC 2.57 L Hgb 9.1 L Hct 28.2 L POC Hct MCV 109.5 H MCH 35.6 H RDW 15.9 H Plt Count 138 L MPV Lymph # (Auto) Nucleated RBCs RBC Morphology Abnorm A Polychromasia Few A Hypochromasia Anisocytosis 1+ A Macrocytosis 2+ A VBG Lactic Acid POC Potassium Potassium 3.1 L Carbon Dioxide POC Total CO2 Anion Gap POC BUN BUN 2 L 2 L Creatinine 0.5 L Glucose POC Glucose Calcium 8.2 L 7.6 L POC WB Ioniz Calcium Phosphorus 2.6 L Magnesium 1.2 L GGT 274 H 283 H AST 66 H 102 H Alkaline Phosphatase Lactate Dehydrogenase 387 H 410 H NT-Pro-B Natriuret Pep Total Protein 4.9 L 4.8 L Albumin 2.3 L 2.5 L Albumin/Globulin Ratio 0.9 L Urine Nitrate Urine Urobilinogen Ur Leukocyte Esterase Urine WBC Amorphous Crystals Urine Bacteria Hyaline Casts 06/23/19 06/22/19 06/22/19 03:55 18:34 11:52 WBC RBC 2.65 L Hgb 9.5 L Hct 29.0 L POC Hct MCV 109.2 H MCH 35.7 H RDW 16.5 H Plt Count 135 L MPV Lymph # (Auto) Nucleated RBCs 1 H RBC Morphology Abnorm A Polychromasia 1+ A Hypochromasia 1+ A Anisocytosis 1+ A Macrocytosis 2+ A VBG Lactic Acid 4.7 H* 4.8 H* POC Potassium Potassium Carbon Dioxide POC Total CO2 Anion Gap POC BUN BUN Creatinine Glucose POC Glucose Calcium POC WB Ioniz Calcium Phosphorus Magnesium GGT AST Alkaline Phosphatase Lactate Dehydrogenase NT-Pro-B Natriuret Pep Total Protein Albumin Albumin/Globulin Ratio Urine Nitrate Urine Urobilinogen Ur Leukocyte Esterase Urine WBC Amorphous Crystals Urine Bacteria Hyaline Casts 06/22/19 06/22/19 06/22/19 08:20 08:20 00:40 WBC RBC Hgb Hct POC Hct 33.0 L MCV MCH RDW Plt Count MPV Lymph # (Auto) Nucleated RBCs RBC Morphology Polychromasia Hypochromasia Anisocytosis Macrocytosis VBG Lactic Acid 4.4 H* 5.0 H* POC Potassium 3.0 L Potassium Carbon Dioxide POC Total CO2 20 L Anion Gap POC BUN < 3 L BUN Creatinine Glucose POC Glucose 123 H Calcium POC WB Ioniz Calcium 0.95 L Phosphorus Magnesium 1.3 L GGT AST Alkaline Phosphatase Lactate Dehydrogenase NT-Pro-B Natriuret Pep Total Protein Albumin Albumin/Globulin Ratio Urine Nitrate Urine Urobilinogen Ur Leukocyte Esterase Urine WBC Amorphous Crystals Urine Bacteria Hyaline Casts 06/22/19 06/22/19 06/22/19 00:40 00:40 00:00 WBC RBC 2.75 L Hgb 10.0 L Hct 29.6 L POC Hct 31.0 L MCV 107.3 H MCH 36.2 H RDW 16.6 H Plt Count MPV 7.0 L Lymph # (Auto) 1.1 L Nucleated RBCs RBC Morphology Polychromasia Hypochromasia Anisocytosis Macrocytosis VBG Lactic Acid POC Potassium 2.9 L* Potassium 3.0 L Carbon Dioxide 19 L POC Total CO2 21 L Anion Gap 21.0 H POC BUN 4 L BUN Creatinine Glucose 109 H POC Glucose 109 H Calcium 7.9 L POC WB Ioniz Calcium 0.96 L Phosphorus Magnesium 1.2 L GGT AST 118 H Alkaline Phosphatase 131 H Lactate Dehydrogenase NT-Pro-B Natriuret Pep 288.6 H Total Protein 5.6 L Albumin 2.8 L Albumin/Globulin Ratio Urine Nitrate Pos A Urine Urobilinogen 2.0 A Ur Leukocyte Esterase 75 A Urine WBC 9 H Amorphous Crystals Few A Urine Bacteria Few A Hyaline Casts 3 H Meds: Medications Acetaminophen (Tylenol) 650 mg PO Q4-6HP PRN; Protocol PRN Reason: Per Pain Protocol/Fever > 101 Hydrocodone Bitart/Acetaminophen ([place] 5/325mg) 1 tab PO Q4HP PRN PRN Reason: PAIN LEVEL 3-6 Last Admin: 06/23/19 10:43 Dose: 1 tab Documented by: Bisacodyl (Dulcolax) 10 mg [place] Q2-3DAYS PRN PRN Reason: Constipation Chlordiazepoxide HCl (Librium) 25 mg PO Q6HP PRN PRN Reason: Alcohol Withdrawal Last Admin: 06/23/19 21:39 Dose: 25 mg Documented by: Cyanocobalamin (Vitamin B-12) 1,000 mcg PO BID [facility] Stop: 06/27/19 09:01 Last Admin: 06/24/19 08:48 Dose: 1,000 mcg Documented by: Docusate Sodium (Colace) 100 mg PO BID [facility] Last Admin: 06/24/19 08:48 Dose: Not Given Documented by: Folic Acid (Folic Acid) 1 mg PO DAILY [facility] Last Admin: 06/24/19 08:48 Dose: 1 mg Documented by: Heparin Sodium (Porcine) (Heparin) 5,000 unit SQ Q12 [facility] Last Admin: 06/24/19 08:48 Dose: 5,000 unit Documented by: Acetaminophen (Ofirmev) 650 mg in 65 mls @ 130 mls/hr IV Q6HP PRN; Protocol PRN Reason: Per Pain Protocol/Fever > 101 Potassium Chloride 40 meq/ (Dextrose) 520 mls @ 130 mls/hr IV UD PRN PRN Reason: K+ = or < 3.5 Last Infusion: 06/23/19 11:15 Dose: Infused Documented by: Magnesium Sulfate (Magnesium Sulfate) 2 gm in 50 mls @ 50 mls/hr IV UD PRN PRN Reason: MG = or < 1.7 Last Admin: 06/24/19 08:49 Dose: 50 mls/hr Documented by: Iron Carb/Multivit/[place]/Folic Acid (Multivitamin W/Minerals) 1 tab PO DAILY [facility] Last Admin: 06/24/19 08:47 Dose: 1 tab Documented by: Lorazepam (Ativan) 1 - 4 mg IV Q1HP PRN; Protocol PRN Reason: Alcohol Withdrawal Last Admin: 06/24/19 00:58 Dose: 3 mg Documented by: Melatonin (Melatonin 3mg Tablet) 3 mg PO HSP PRN PRN Reason: Insomnia Last Admin: 06/23/19 21:27 Dose: 3 mg Documented by: Nicotine (Nicoderm) 14 mg TOPICAL DAILY@1000 [facility] Last Admin: 06/23/19 10:42 Dose: 14 mg Documented by: Ondansetron HCl (Zofran) 4 mg IV Q4HP PRN PRN Reason: Nausea And Vomiting Last Admin: 06/22/19 18:40 Dose: 4 mg Documented by: Ondansetron HCl (Zofran Odt) 4 mg SL Q4-6HP PRN; Protocol PRN Reason: Nausea And Vomiting Last Admin: 06/23/19 10:42 Dose: 4 mg Documented by: Polyethylene Glycol (Miralax) 17 gm PO DAILYP PRN PRN Reason: Constipation Potassium Chloride (Klor-Con) 40 meq PO DAILYP PRN PRN Reason: K+ < 3.5 Potassium Chloride (Potassium Chloride) 15 meq PO BIDCC [facility] Last Admin: 06/24/19 08:47 Dose: 15 meq Documented by: Potassium/Phosphorus/Sodium (Neutra Phos) 2 packet PO DAILY [facility] Stop: 06/30/19 09:01 Last Admin: 06/24/19 08:47 Dose: 2 packet Documented by: Senna/Docusate Sodium (Senna Plus Tablet) 1 tab PO HS [facility] Last Admin: 06/23/19 21:07 Dose: Not Given Documented by: Sodium Chloride (Saline Flush) 10 ml IV Q8 [facility] Last Admin: 06/24/19 08:50 Dose: 10 ml Documented by: Thiamine HCl (Vitamin B1) 100 mg PO DAILY [facility] Last Admin: 06/24/19 08:47 Dose: 100 mg Documented by: Vancomycin HCl (Vancomycin Per Pharmacy) 1 order IV ONCE ONE; Protocol Stop: 06/24/19 11:06 Medical - PN: A/P - Time Spent With Patient Total time spent is greater than 50% in coordination of care (as documented) at patient's floor/unit and/or counseling patient: - Narrative A/P Narrative: Acute delirium tremens Secondary to alcohol withdrawal She is on supportive medications and crystalloids benzodiazepine multivitamins CIWA protocol continue Electrolytes replacement on board Dehydration-lactic acidosis Clinically improving with IV crystalloid UTI Her urine culture growing coagulase-negative staph She was started on vancomycin Severe deconditioning and weakness Ordered PT OT evaluation Severe protein calorie malnutrition Dietitian consult and recommendations Alcoholic liver disease with elevated LFT Strongly encouraged the patient to quit alcohol Probably rehab placement upon discharge Essential hypertension Continue lisinopril CODE STATUS-full code DVT prophylaxis-subcu heparin Medical - PN: Qual - VTE Deep Vein Thrombosis/Pulmonary Embolism Present on Admission: No
[2019-06-24] MEDS: NICOTINE 14 MG PATCH TOPICAL SCH (11:57)
[2019-06-24] MEDS: VANCOMYCIN 750 MG in 0.9 % SODIUM CHLORIDE 250 ML IV SCH ×2 (12:53→23:19)
[2019-06-24] MEDS: MELATONIN 3 MG TABLET PO PRN (21:14)
[2019-06-24] MEDS: SENNOSIDES/DOCUSATE SODIUM 1 TAB TABLET PO SCH ×2 (21:14→21:22)
[2019-06-25] MEDS: 0.9 % SODIUM CHLORIDE 10 ML SYRINGE IV SCH ×4 (05:31→23:21)
[2019-06-25 05:32] LABS: Hematocrit 27.5 % (36.0-48.0); Hemoglobin 8.9 g/dL (12.0-15.0); Mean Cell Volume 109.8 fL (80.0-100.0); Mean Corpuscular HGB Conc 32.4 g/dL (31.0-36.0); Mean Platelet Volume 8.3 fL (7.4-10.4); Platelet Count 141 K/mcL (140-440); Red Cell Distribution Width 16.9 % (11.5-14.5)
[2019-06-25 05:37] LABS: ALT/SGPT 22 U/l (0-40); AST/SGOT 61 U/l (0-37); Albumin 2.2 gm/dL (3.2-5.2); Albumin/Globulin Ratio 0.9 (1.0-2.3); Alkaline Phosphatase 113 U/L (39-117); Bilirubin,Direct < 0.2 mg/dL (0.0-0.3); Bilirubin,Total 0.2 mg/dL (0.0-1.0); Calcium 8.1 mg/dl (8.6-10.4); Carbon Dioxide 24 mmol/L (22-30); Chloride 102 mmol/L (96-108); Globulin 2.4 gm/dL (2.2-3.7); Glomerular Filtration Rate 105; Glucose 117 mg/dL (70-105); Lactate Dehydrogenase 330 U/L (94-250); Triglycerides 107 mg/dl (<150)
[2019-06-25 05:38] LABS: Blood Urea Nitrogen 3 mg/dl (6-20); Phosphorous 4.9 mg/dL (2.7-4.5)
[2019-06-25 08:03] LABS: Anisocytosis 1+ (NONE SEEN); Band Neutrophils % 1 % (0-10); Eosinophils % (Manual) 4 % (0-7); Hypochromasia 1+ (NONE SEEN); Lymphocytes % 28 % (15-49); Macrocytosis 2+ (NONE SEEN); Monocytes % (Manual) 7 % (1-12); Platelet Estimate NORMAL (NORMAL); Polychromasia 1+ (NONE SEEN); RBC Morphology ABNORM (NORMAL); Segmented Neutrophils % 60 % (38-78)
[2019-06-25] MEDS: POTASSIUM CHLORIDE 20 MEQ/15 ML ML PO SCH ×2 (08:34→17:21)
[2019-06-25] MEDS: MULTIVIT,THER IRON,CA,FA & MIN 1 TABLET PO SCH (08:34)
[2019-06-25] MEDS: THIAMINE 100 MG TABLET PO SCH (08:34)
[2019-06-25] MEDS: FOLIC ACID 1 MG TABLET PO SCH (08:34)
[2019-06-25] MEDS: CYANOCOBALAMIN (VITAMIN B-12) 500 MCG TABLET PO SCH ×2 (08:34→20:19)
[2019-06-25] MEDS: HEPARIN 5,000 UNIT/ML VIAL SQ SCH ×2 (08:35→20:19)
[2019-06-25] MEDS: NEUTRA PHOS 1 PACKET PO SCH (08:35)
[2019-06-25] MEDS: DOCUSATE SODIUM 100 MG CAPSULE PO SCH ×2 (08:36→20:20)
[2019-06-25] MEDS: chlordiazePOXIDE 25 MG CAPSULE PO PRN ×2 (09:08→20:19)
[2019-06-25] MEDS: NICOTINE 14 MG PATCH TOPICAL SCH (10:25)
[2019-06-25] MEDS: VANCOMYCIN 750 MG in 0.9 % SODIUM CHLORIDE 250 ML IV SCH (12:48)
[2019-06-25] MEDS ORDERED: ACETAMINOPHEN 650 MG/65 ML BOTTLE IV PRN (13:21)
[2019-06-25] MEDS ORDERED: POTASSIUM CHLORIDE 40 MEQ in DEXTROSE 5% IN WATER 500 ML IV PRN (13:21)
[2019-06-25] MEDS ORDERED: POLYETHYLENE GLYCOL 3350 17 GM PACKET PO PRN (13:21)
[2019-06-25] MEDS ORDERED: POTASSIUM CHLORIDE 20 MEQ PACKET PO PRN (13:21)
[2019-06-25] MEDS ORDERED: ACETAMINOPHEN 325 MG TABLET PO PRN (13:21)
[2019-06-25] MEDS ORDERED: ONDANSETRON 4 MG/2 ML VIAL IV PRN (13:21)
[2019-06-25] MEDS ORDERED: ONDANSETRON 4 MG ODT TABLET SL PRN (13:21)
[2019-06-25] MEDS ORDERED: BISACODYL 10 MG SUPP.RECT PR PRN (13:21)
--- NOTE | 2019-06-25 20:39 | Internal Med Progress Note ---
Medical - PN: Subj Patient information: Note initiated : 06/25/19 at 8:37 pm Service Date, if different from initiated Date: [] Patient: Do Cantu a 59 y/o F admitted on 06/23/19 for weakness. Chief Complaint: [] Interval history: Ms. Cantu is a 59 year old F with a history of chronic alcoholism drinking upto a 5th of whisky presents to the ER with increasing nausea and abdominal discomfort over the last few days worsening in the last 2 4 hours, No associated bloody emesis, she also has associated loss of appetite and has been unable to eat or drink in the last 48 hours. She also had an episode of diarrhea and vomiting. She denies associated chest pain, weight loss, fever, headache, ligh theadedness, chest palpitation. Initial workup in the ER was consistent with UTI with urine dip. UA is pending. Also potassium at 2.9 magnesium 1 and was started on replacement. She received 2 L of crystalloids, 1 g Rocephin, Zofran and Reglan. Initial CIWA score 6. Subsequently hospitalist service was consulted for admission. She was also noted to have multiple episodes of diarrhea. She became incontinent. She was extremely weak At the time evaluation patient is lethargic but able to answer most of the questions. She appears anxious but no signs of tremors or hallucination. She i s mild tachycardia she denies changes in medications, she lives alone and does not have any family support except for a friend who visits her intermittently. She has been surviving on canned foods. She denies recent falls or injuries but endorses to generalized aches and weight pains. 06/23 -patient in [place] DTs despite oral alcohol. Discontinue alcohol and start CIWA protocol. Elevated lactate. Continue supportive management with crystalloids/IV MVI. Low magnesium and potassium on replacement. Mild cystitis, diarrhea improved. DC antibiotic coverage. 06/24-her delirium is slightly improved, continuing IV fluid hydration and CIWA protocol she was drowsy this morning, urine culture positive for coagulase- negative staph-we will start her on vancomycin 06/25-her delirium almost resolved She is alert but very tired following dose of Librium Discontinued vancomycin as the culture seems to be contaminant, will discontinue the CIWA protocol Will avoid any benzodiazepines Patient need placement, case management involved Pertinent ROS: Review of systems-unable to obtain as the patient is uncooperative and drowsy - Constitutional Vitals: Vital Signs Temp Pulse Resp BP Pulse Ox 97.8 F 108 H 18 127/76 99 06/25/19 15:29 06/25/19 15:29 06/25/19 15:29 06/25/19 15:29 06/25/19 15:29 Period Temp Pulse Resp BP Sys/Manning Pulse Ox Last 24 Hr 97.6 F-98.5 F 101-108 14-27 94-127/64-101 93-99 Intake and Output 06/25/19 06/25/19 06/25/19 05:59 13:59 21:59 Intake Total 490 480 240 Output Total 2 203 251 Balance 488 277 -11 Intake & Output: Intake & Output 06/25/19 06/25/19 06/25/19 05:59 13:59 21:59 Intake Total 490 480 240 Output Total 2 203 251 Balance 488 277 -11 Intake: Nourishment/Supplement quantity 240 240 240 (ml) IV 250 Vancomycin 750 mg In Sodium 250 Chloride 0.9% 250 ml @ 250 mls/ hr IV Q12H [facility] Rx#:[id number] Oral 240 Output: Urine Catheter Amount 50 Void Amount 200 200 # of times incontinent of urine 2 3 1 Other: Meal egg salad sandwich Nourishment/Supplement Dinner Percent of Meal Consumed 75% bites Feeding Ability Needs Supervision Total Assistance Nourishment/Supplement name ice cream x 2 Ensure Ensure - Head Head exam: Present: atraumatic, normal inspection - Eye Eye exam: Present: conjunctival injection, normal appearance Pupils: Present: PERRL - ENT ENT exam: Present: mucous membranes dry, normal exam - Neck Neck exam: Present: full ROM. Absent: meningismus, tenderness - Respiratory Respiratory exam: Present: normal respiratory exam. Absent: accessory muscle use - Cardiovascular Cardiovascular exam: Present: normal rate and rhythm. Absent: bradycardia, diastolic murmur - GI/Abdominal GI/Abdominal exam: Absent: distended, guarding, tenderness - Neurological Exam Neurological exam: Present: alert, oriented X3. Absent: CN II-XII intact, motor sensory deficit - Psychiatric Psychiatric exam: Present: depressed, flat affect Medical - PN: Obj Da - Labs CBC & Chem 7: 06/25/19 03:45 12/16/19 03:45 Labs: Abnormal Lab Results 06/25/19 06/25/19 06/24/19 03:45 03:45 04:00 WBC RBC 2.50 L Hgb 8.9 L Hct 27.5 L MCV 109.8 H MCH 35.6 H RDW 16.9 H Plt Count Nucleated RBCs RBC Morphology Abnorm A Polychromasia 1+ A Hypochromasia 1+ A Anisocytosis 1+ A Macrocytosis 2+ A Potassium BUN 3 L 2 L Creatinine 0.5 L 0.5 L Glucose 117 H Calcium 8.1 L 8.2 L Phosphorus 4.9 H Magnesium GGT 253 H 274 H AST 61 H 66 H Lactate Dehydrogenase 330 H 387 H Total Protein 4.6 L 4.9 L Albumin 2.2 L 2.3 L Albumin/Globulin Ratio 0.9 L 0.9 L 06/24/19 06/23/19 06/23/19 04:00 03:55 03:55 WBC 4.4 L RBC 2.57 L 2.65 L Hgb 9.1 L 9.5 L Hct 28.2 L 29.0 L MCV 109.5 H 109.2 H MCH 35.6 H 35.7 H RDW 15.9 H 16.5 H Plt Count 138 L 135 L Nucleated RBCs 1 H RBC Morphology Abnorm A Abnorm A Polychromasia Few A 1+ A Hypochromasia 1+ A Anisocytosis 1+ A 1+ A Macrocytosis 2+ A 2+ A Potassium 3.1 L BUN 2 L Creatinine Glucose Calcium 7.6 L Phosphorus 2.6 L Magnesium 1.2 L GGT 283 H AST 102 H Lactate Dehydrogenase 410 H Total Protein 4.8 L Albumin 2.5 L Albumin/Globulin Ratio Meds: Medications Acetaminophen (Tylenol) 650 mg PO Q4-6HP PRN; Protocol PRN Reason: Per Pain Protocol/Fever > 101 Hydrocodone Bitart/Acetaminophen ([place] 5/325mg) 1 tab PO Q4HP PRN PRN Reason: PAIN LEVEL 3-6 Bisacodyl (Dulcolax) 10 mg ND Q2-3DAYS PRN PRN Reason: Constipation Chlordiazepoxide HCl (Librium) 25 mg PO Q6HP PRN PRN Reason: Alcohol Withdrawal Last Admin: 06/25/19 20:19 Dose: 25 mg Documented by: Cyanocobalamin (Vitamin B-12) 1,000 mcg PO BID [facility] Stop: 06/27/19 09:01 Last Admin: 06/25/19 20:19 Dose: 1,000 mcg Documented by: Docusate Sodium (Colace) 100 mg PO BID [facility] Last Admin: 06/25/19 20:20 Dose: 100 mg Documented by: Folic Acid (Folic Acid) 1 mg PO DAILY [facility] Heparin Sodium (Porcine) (Heparin) 5,000 unit SQ Q12 [facility] Last Admin: 06/25/19 20:19 Dose: 5,000 unit Documented by: Potassium Chloride 40 meq/ (Dextrose) 520 mls @ 130 mls/hr IV UD PRN PRN Reason: K+ = or < 3.5 Magnesium Sulfate (Magnesium Sulfate) 2 gm in 50 mls @ 50 mls/hr IV UD PRN PRN Reason: MG = or < 1.7 Acetaminophen (Ofirmev) 650 mg in 65 mls @ 130 mls/hr IV Q6HP PRN; Protocol PRN Reason: Per Pain Protocol/Fever > 101 Iron Carb/Multivit/Remy/Folic Acid (Multivitamin W/Minerals) 1 tab PO DAILY [facility] Lorazepam (Ativan) 1 - 4 mg IV Q1HP PRN; Protocol PRN Reason: Alcohol Withdrawal Melatonin (Melatonin 3mg Tablet) 3 mg PO HSP PRN PRN Reason: Insomnia Nicotine (Nicoderm) 14 mg TOPICAL DAILY@1000 [facility] Ondansetron HCl (Zofran) 4 mg IV Q4HP PRN PRN Reason: Nausea And Vomiting Ondansetron HCl (Zofran Odt) 4 mg SL Q4-6HP PRN; Protocol PRN Reason: Nausea And Vomiting Polyethylene Glycol (Miralax) 17 gm PO DAILYP PRN PRN Reason: Constipation Potassium Chloride (Klor-Con) 40 meq PO DAILYP PRN PRN Reason: K+ < 3.5 Potassium Chloride (Potassium Chloride) 15 meq PO BIDCC [facility] Last Admin: 06/25/19 17:21 Dose: 15 meq Documented by: Potassium/Phosphorus/Sodium (Neutra Phos) 2 packet PO DAILY [facility] Stop: 06/30/19 09:01 Senna/Docusate Sodium (Senna Plus Tablet) 1 tab PO HS [facility] Sodium Chloride (Saline Flush) 10 ml IV Q8 [facility] Last Admin: 06/25/19 20:20 Dose: 10 ml Documented by: Thiamine HCl (Vitamin B1) 100 mg PO DAILY [facility] Medical - PN: A/P - Time Spent With Patient Total time spent is greater than 50% in coordination of care (as documented) at patient's floor/unit and/or counseling patient: - Narrative A/P Narrative: Acute delirium tremens-improved Secondary to alcohol withdrawal She is on supportive medications and crystalloids benzodiazepine multivitamins We will discontinue CIWA protocol electrolytes replacement on board Dehydration-lactic acidosis-improved Clinically improving with IV crystalloid UTI Probable bacteriuria Urine culture probably contamination Severe deconditioning and weakness Ordered PT OT evaluation case management for placement Severe protein calorie malnutrition Dietitian consult and recommendations Alcoholic liver disease with elevated LFT Strongly encouraged the patient to quit alcohol Probably rehab placement upon discharge Essential hypertension Continue lisinopril CODE STATUS-full code Medical - PN: Qual - VTE Deep Vein Thrombosis/Pulmonary Embolism Present on Admission: No
[2019-06-25] MEDS: LORazepam 2 MG/ML VIAL IV PRN (23:20)
[2019-06-26] MEDS: SENNOSIDES/DOCUSATE SODIUM 1 TAB TABLET PO SCH ×2 (00:22→20:07)
[2019-06-26] MEDS: LORazepam 2 MG/ML VIAL IV PRN (01:31)
[2019-06-26] MEDS: 0.9 % SODIUM CHLORIDE 10 ML SYRINGE IV SCH ×3 (05:11→20:08)
[2019-06-26 06:44] LABS: Hematocrit 31.6 % (36.0-48.0); Hemoglobin 10.3 g/dL (12.0-15.0); Mean Cell Volume 112.1 fL (80.0-100.0); Mean Corpuscular HGB Conc 32.7 g/dL (31.0-36.0); Mean Platelet Volume 8.5 fL (7.4-10.4); Platelet Count 164 K/mcL (140-440); RBC 2.82 M/mcL (4.00-5.20); Red Cell Distribution Width 16.2 % (11.5-14.5); WBC 5.5 K/mcL (4.5-11.0)
[2019-06-26 06:57] LABS: Bilirubin,Direct < 0.2 mg/dL (0.0-0.3); Chloride 101 mmol/L (96-108)
[2019-06-26 06:58] LABS: ALT/SGPT 22 U/l (0-40); AST/SGOT 50 U/l (0-37); Albumin 2.3 gm/dL (3.2-5.2); Albumin/Globulin Ratio 0.8 (1.0-2.3); Alkaline Phosphatase 105 U/L (39-117); Bilirubin,Total 0.3 mg/dL (0.0-1.0); Blood Urea Nitrogen 6 mg/dl (6-20); Calcium 8.5 mg/dl (8.6-10.4); Carbon Dioxide 19 mmol/L (22-30); Globulin 2.9 gm/dL (2.2-3.7); Glomerular Filtration Rate 105; Glucose 76 mg/dL (70-105); Lactate Dehydrogenase 403 U/L (94-250); Phosphorous 5.5 mg/dL (2.7-4.5); Triglycerides 116 mg/dl (<150); Uric Acid 3.5 mg/dL (2.5-8.0)
[2019-06-26] MEDS: chlordiazePOXIDE 25 MG CAPSULE PO PRN (07:24)
[2019-06-26] MEDS: HYDROcodone/APAP 5/325MG TABLET PO PRN ×3 (07:24→16:38)
[2019-06-26 07:41] LABS: Anisocytosis 1+ (NONE SEEN); Band Neutrophils % 1 % (0-10); Hypochromasia 2+ (NONE SEEN); Lymphocytes % 31 % (15-49); Macrocytosis 3+ (NONE SEEN); Monocytes % (Manual) 6 % (1-12); Platelet Estimate NORMAL (NORMAL); Polychromasia 1+ (NONE SEEN); RBC Morphology ABNORM (NORMAL); Reactive Lymphocytes 2 % (0-2); Segmented Neutrophils % 60 % (38-78)
[2019-06-26] MEDS ORDERED: NEUTRA PHOS 1 PACKET PO SCH (09:00)
[2019-06-26] MEDS: POTASSIUM CHLORIDE 20 MEQ/15 ML ML PO SCH ×2 (09:06→16:38)
[2019-06-26] MEDS: HEPARIN 5,000 UNIT/ML VIAL SQ SCH ×2 (09:07→20:07)
[2019-06-26] MEDS: CYANOCOBALAMIN (VITAMIN B-12) 500 MCG TABLET PO SCH ×2 (09:07→20:07)
[2019-06-26] MEDS: NICOTINE 14 MG PATCH TOPICAL SCH (09:07)
[2019-06-26] MEDS: MULTIVIT,THER IRON,CA,FA & MIN 1 TABLET PO SCH (09:07)
[2019-06-26] MEDS: DOCUSATE SODIUM 100 MG CAPSULE PO SCH ×2 (09:07→20:07)
[2019-06-26] MEDS: THIAMINE 100 MG TABLET PO SCH (09:07)
[2019-06-26] MEDS: FOLIC ACID 1 MG TABLET PO SCH (09:08)
--- NOTE | 2019-06-26 14:59 | Internal Med Progress Note ---
Medical - PN: Subj Patient information: Note initiated : 06/26/19 at 2:58 pm Service Date, if different from initiated Date: [] Patient: Do Cantu a 59 y/o F admitted on 06/23/19 for weakness. Chief Complaint: [] Interval history: Ms. Cantu is a 59 year old F with a history of chronic alcoholism drinking upto a 5th of whisky presents to the ER with increasing nausea and abdominal discomfort over the last few days worsening in the last 2 4 hours, No associated bloody emesis, she also has associated loss of appetite and has been unable to eat or drink in the last 48 hours. She also had an episode of diarrhea and vomiting. She denies associated chest pain, weight loss, fever, headache, ligh theadedness, chest palpitation. Initial workup in the ER was consistent with UTI with urine dip. UA is pending. Also potassium at 2.9 magnesium 1 and was started on replacement. She received 2 L of crystalloids, 1 g Rocephin, Zofran and Reglan. Initial CIWA score 6. Subsequently hospitalist service was consulted for admission. She was also noted to have multiple episodes of diarrhea. She became incontinent. She was extremely weak At the time evaluation patient is lethargic but able to answer most of the questions. She appears anxious but no signs of tremors or hallucination. She i s mild tachycardia she denies changes in medications, she lives alone and does not have any family support except for a friend who visits her intermittently. She has been surviving on canned foods. She denies recent falls or injuries but endorses to generalized aches and weight pains. 06/23 -patient in [place] D[place] despite oral alcohol. Discontinue alcohol and start CIWA protocol. Elevated lactate. Continue supportive management with crystalloids/IV MVI. Low magnesium and potassium on replacement. Mild cystitis, diarrhea improved. DC antibiotic coverage. 06/24-her delirium is slightly improved, continuing IV fluid hydration and CIWA protocol she was drowsy this morning, urine culture positive for coagulase- negative staph-we will start her on vancomycin 06/25-her delirium almost resolved She is alert but very tired following dose of Librium Discontinued vancomycin as the culture seems to be contaminant, will discontinue the CIWA protocol Will avoid any benzodiazepines Patient need placement, case management involved 06/26 -she is alert oriented today But appears to be tired We will discontinue all the benzodiazepines Discontinue antibiotics Physical therapy evaluation and patient need placement and case management on board Pertinent ROS: Review of system- General-no distress no pain Respiratory-no shortness of breath no cough Cardiac-chest pain no palpitations Abdomen-intermittent pain, no diarrhea no constipation Neuro-occasional dizziness no focal deficit - Constitutional Vitals: Vital Signs Temp Pulse Resp BP Pulse Ox 98.2 F 95 H 20 112/72 97 06/26/19 11:00 06/26/19 11:00 06/26/19 11:00 06/26/19 11:00 06/26/19 11:00 Period Temp Pulse Resp BP Sys/Manning Pulse Ox Last 24 Hr 97.8 F-98.2 F 92-108 14-20 107-132/62-79 94-99 Intake and Output 06/26/19 06/26/19 06/26/19 05:59 13:59 21:59 Intake Total 960 360 Output Total 1 Balance -1 960 360 Intake & Output: Intake & Output 06/26/19 06/26/19 06/26/19 05:59 13:59 21:59 Intake Total 960 360 Output Total 1 Balance -1 960 360 Intake: Oral 960 360 Output: # of times incontinent of urine 1 Other: Meal Breakfast Lunch Percent of Meal Consumed 25% 75% Feeding Ability Independent Independent - Head Head exam: Present: atraumatic, normal inspection - Eye Eye exam: Present: normal appearance. Absent: conjunctival injection - ENT ENT exam: Present: mucous membranes dry, normal exam - Neck Neck exam: Present: normal inspection. Absent: lymphadenopathy - Respiratory Respiratory exam: Present: decreased breath sounds. Absent: normal respiratory exam, accessory muscle use, chest wall tenderness - Cardiovascular Cardiovascular exam: Present: normal rate and rhythm. Absent: bradycardia - GI/Abdominal GI/Abdominal exam: Present: normal bowel sounds, distended - Neurological Exam Neurological exam: Present: alert, altered, reflexes normal. Absent: motor sensory deficit Medical - PN: Obj Da - Labs CBC & Chem 7: 06/26/19 04:35 06/26/19 04:35 Labs: Abnormal Lab Results 06/26/19 06/26/19 06/25/19 04:35 04:35 03:45 WBC RBC 2.82 L Hgb 10.3 L Hct 31.6 L MCV 112.1 H MCH 36.7 H RDW 16.2 H Plt Count RBC Morphology Abnorm A Polychromasia 1+ A Hypochromasia 2+ A Anisocytosis 1+ A Macrocytosis 3+ A Carbon Dioxide 19 L BUN 3 L Creatinine 0.5 L 0.5 L Glucose 117 H Calcium 8.5 L 8.1 L Phosphorus 5.5 H 4.9 H GGT 268 H 253 H AST 50 H 61 H Lactate Dehydrogenase 403 H 330 H Total Protein 5.2 L 4.6 L Albumin 2.3 L 2.2 L Albumin/Globulin Ratio 0.8 L 0.9 L 06/25/19 06/24/19 06/24/19 03:45 04:00 04:00 WBC 4.4 L RBC 2.50 L 2.57 L Hgb 8.9 L 9.1 L Hct 27.5 L 28.2 L MCV 109.8 H 109.5 H MCH 35.6 H 35.6 H RDW 16.9 H 15.9 H Plt Count 138 L RBC Morphology Abnorm A Abnorm A Polychromasia 1+ A Few A Hypochromasia 1+ A Anisocytosis 1+ A 1+ A Macrocytosis 2+ A 2+ A Carbon Dioxide BUN 2 L Creatinine 0.5 L Glucose Calcium 8.2 L Phosphorus GGT 274 H AST 66 H Lactate Dehydrogenase 387 H Total Protein 4.9 L Albumin 2.3 L Albumin/Globulin Ratio 0.9 L Meds: Medications Acetaminophen (Tylenol) 650 mg PO Q4-6HP PRN; Protocol PRN Reason: Per Pain Protocol/Fever > 101 Hydrocodone Bitart/Acetaminophen ([place] 5/325mg) 1 tab PO Q4HP PRN PRN Reason: PAIN LEVEL 3-6 Last Admin: 06/26/19 12:04 Dose: 1 tab Documented by: Bisacodyl (Dulcolax) 10 mg MA Q2-3DAYS PRN PRN Reason: Constipation Cyanocobalamin (Vitamin B-12) 1,000 mcg PO BID [facility] Stop: 06/27/19 09:01 Last Admin: 06/26/19 09:07 Dose: 1,000 mcg Documented by: Docusate Sodium (Colace) 100 mg PO BID [facility] Last Admin: 06/26/19 09:07 Dose: 100 mg Documented by: Folic Acid (Folic Acid) 1 mg PO DAILY [facility] Last Admin: 06/26/19 09:08 Dose: 1 mg Documented by: Heparin Sodium (Porcine) (Heparin) 5,000 unit SQ Q12 [facility] Last Admin: 06/26/19 09:07 Dose: 5,000 unit Documented by: Potassium Chloride 40 meq/ (Dextrose) 520 mls @ 130 mls/hr IV UD PRN PRN Reason: K+ = or < 3.5 Magnesium Sulfate (Magnesium Sulfate) 2 gm in 50 mls @ 50 mls/hr IV UD PRN PRN Reason: MG = or < 1.7 Acetaminophen (Ofirmev) 650 mg in 65 mls @ 130 mls/hr IV Q6HP PRN; Protocol PRN Reason: Per Pain Protocol/Fever > 101 Iron Carb/Multivit/[place]/Folic Acid (Multivitamin W/Minerals) 1 tab PO DAILY [facility] Last Admin: 06/26/19 09:07 Dose: 1 tab Documented by: Melatonin (Melatonin 3mg Tablet) 3 mg PO HSP PRN PRN Reason: Insomnia Nicotine (Nicoderm) 14 mg TOPICAL DAILY@1000 [facility] Last Admin: 06/26/19 09:07 Dose: 14 mg Documented by: Ondansetron HCl (Zofran) 4 mg IV Q4HP PRN PRN Reason: Nausea And Vomiting Ondansetron HCl (Zofran Odt) 4 mg SL Q4-6HP PRN; Protocol PRN Reason: Nausea And Vomiting Polyethylene Glycol (Miralax) 17 gm PO DAILYP PRN PRN Reason: Constipation Potassium Chloride (Klor-Con) 40 meq PO DAILYP PRN PRN Reason: K+ < 3.5 Potassium Chloride (Potassium Chloride) 15 meq PO BIDCC [facility] Last Admin: 06/26/19 09:06 Dose: 15 meq Documented by: Potassium/Phosphorus/Sodium (Neutra Phos) 2 packet PO DAILY [facility] Stop: 06/30/19 09:01 Last Admin: 06/26/19 09:07 Dose: Not Given Documented by: Senna/Docusate Sodium (Senna Plus Tablet) 1 tab PO [facility] Last Admin: 06/26/19 00:22 Dose: 1 tab Documented by: Sodium Chloride (Saline Flush) 10 ml IV Q8 [facility] Last Admin: 06/26/19 13:51 Dose: 10 ml Documented by: Thiamine HCl (Vitamin B1) 100 mg PO DAILY [facility] Last Admin: 06/26/19 09:07 Dose: 100 mg Documented by: Medical - PN: A/P - Time Spent With Patient Total time spent is greater than 50% in coordination of care (as documented) at patient's floor/unit and/or counseling patient: - Narrative A/P Narrative: Acute delirium tremens-improved Secondary to alcohol withdrawal She is on supportive medications and crystalloids benzodiazepine multivitamins We will discontinue CIWA protocol electrolytes replacement on board Dehydration-lactic acidosis-improved Discontinue IV fluid UTI Probable bacteriuria Urine culture probably contamination Severe deconditioning and weakness Ordered PT OT evaluation case management for placement Severe protein calorie malnutrition Dietitian consult and recommendations Alcoholic liver disease with elevated LFT Strongly encouraged the patient to quit alcohol Patient would benefit from rehab placement and case management involved Essential hypertension Continue lisinopril CODE STATUS-full code Medical - PN: Qual - VTE Deep Vein Thrombosis/Pulmonary Embolism Present on Admission: No
[2019-06-26] MEDS: MELATONIN 3 MG TABLET PO PRN (20:07)
[2019-06-27] MEDS: 0.9 % SODIUM CHLORIDE 10 ML SYRINGE IV SCH ×3 (04:42→20:27)
[2019-06-27 07:13] LABS: Hematocrit 29.1 % (36.0-48.0); Hemoglobin 9.4 g/dL (12.0-15.0); Mean Cell Volume 110.2 fL (80.0-100.0); Mean Corpuscular HGB Conc 32.1 g/dL (31.0-36.0); Mean Platelet Volume 7.9 fL (7.4-10.4); Platelet Count 216 K/mcL (140-440); RBC 2.64 M/mcL (4.00-5.20); Red Cell Distribution Width 16.5 % (11.5-14.5); WBC 6.4 K/mcL (4.5-11.0)
[2019-06-27 07:34] LABS: ALT/SGPT 17 U/l (0-40); AST/SGOT 29 U/l (0-37); Albumin 2.5 gm/dL (3.2-5.2); Alkaline Phosphatase 93 U/L (39-117); Bilirubin,Direct < 0.2 mg/dL (0.0-0.3); Bilirubin,Total 0.2 mg/dL (0.0-1.0); Blood Urea Nitrogen 9 mg/dl (6-20); Calcium 8.6 mg/dl (8.6-10.4); Carbon Dioxide 21 mmol/L (22-30); Chloride 102 mmol/L (96-108); Globulin 2.6 gm/dL (2.2-3.7); Glomerular Filtration Rate 99; Glucose 81 mg/dL (70-105); Lactate Dehydrogenase 286 U/L (94-250); Phosphorous 5.4 mg/dL (2.7-4.5); Triglycerides 108 mg/dl (<150)
[2019-06-27 08:52] LABS: Anisocytosis 1+ (NONE SEEN); Eosinophils % (Manual) 1 % (0-7); Hypochromasia 1+ (NONE SEEN); Lymphocytes % 22 % (15-49); Macrocytosis 3+ (NONE SEEN); Monocytes % (Manual) 13 % (1-12); Platelet Estimate NORMAL (NORMAL); Polychromasia 1+ (NONE SEEN); RBC Morphology ABNORM (NORMAL); Segmented Neutrophils % 64 % (38-78)
[2019-06-27] MEDS: POTASSIUM CHLORIDE 20 MEQ/15 ML ML PO SCH ×2 (08:56→18:10)
--- NOTE | 2019-06-27 10:36 | Internal Med Progress Note ---
Medical - PN: Subj Patient information: Note initiated : 06/27/19 at 10:34 am Service Date, if different from initiated Date: [] Patient: Do Cantu a 59 y/o F admitted on 06/23/19 for weakness. Chief Complaint: [] Interval history: Ms. Cantu is a 59 year old F with a history of chronic alcoholism drinking upto a 5th of whisky presents to the ER with increasing nausea and abdominal discomfort over the last few days worsening in the last 2 4 hours, No associated bloody emesis, she also has associated loss of appetite and has been unable to eat or drink in the last 48 hours. She also had an episode of diarrhea and vomiting. She denies associated chest pain, weight loss, fever, headache, lig htheadedness, chest palpitation. Initial workup in the ER was consistent with UTI with urine dip. UA is pending. Also potassium at 2.9 magnesium 1 and was started on replacement. She received 2 L of crystalloids, 1 g Rocephin, Zofran and Reglan. Initial CIWA score 6. Subsequently hospitalist service was consulted for admission. She was also noted to have multiple episodes of diarrhea. She became incontinent. She was extremely weak At the time evaluation patient is lethargic but able to answer most of the questions. She appears anxious but no signs of tremors or hallucination. She is mild tachycardia she denies changes in medications, she lives alone and does not have any family support except for a friend who visits her intermittently. She has been surviving on canned foods. She denies recent falls or injuries but endorses to generalized aches and weight pains. 06/23 -patient in [place] DTs despite oral alcohol. Discontinue alcohol and start CIWA protocol. Elevated lactate. Continue supportive management with crystalloids/IV MVI. Low magnesium and potassium on replacement. Mild cystitis, diarrhea improved. DC antibiotic coverage. 06/24-her delirium is slightly improved, continuing IV fluid hydration and CIWA protocol she was drowsy this morning, urine culture positive for coagulase- negative staph-we will start her on vancomycin 06/25-her delirium almost resolved She is alert but very tired following dose of Librium Discontinued vancomycin as the culture seems to be contaminant, will discontinue the CIWA protocol Will avoid any benzodiazepines Patient need placement, case management involved 06/26 -she is alert oriented today But appears to be tired We will discontinue all the benzodiazepines Discontinue antibiotics Physical therapy evaluation and patient need placement and case management on board 06/27-patient remains alert and oriented She is uncooperative, we discontinued benzodiazepines, discontinued antibiotics, physical therapy recommended rehab but patient waiting for insurance approval and case management and social service working. I do not think the patient will be safe to go home she is very unsteady and weak and intermittently confused. Pertinent ROS: Review of system- General-no distress no pain Respiratory-no shortness of breath no cough Cardiac-chest pain no palpitations Abdomen-intermittent pain, no diarrhea no constipation Neuro-occasional dizziness no focal deficit - Constitutional Vitals: Vital Signs Temp Pulse Resp BP Pulse Ox 97.2 F 88 14 132/78 92 06/27/19 08:00 06/27/19 08:00 06/27/19 08:00 06/27/19 08:00 06/27/19 08:00 Period Temp Pulse Resp BP Sys/Manning Pulse Ox Last 24 Hr 97.2 F-99.5 F 88-100 14-20 85-132/56-81 92-97 Intake and Output 06/26/19 06/27/19 06/27/19 21:59 05:59 13:59 Intake Total 1040 120 200 Output Total 200 2 Balance 840 120 198 Weight 112 lb Intake & Output: Intake & Output 06/26/19 06/27/19 06/27/19 21:59 05:59 13:59 Intake Total 1040 120 200 Output Total 200 2 Balance 840 120 198 Weight 112 lb Intake: Nourishment/Supplement quantity 0 (ml) Oral 1040 120 200 Output: Void Amount 200 # of times incontinent of urine 2 Other: Meal Dinner Breakfast Percent of Meal Consumed 50% 25% Feeding Ability Independent Nourishment/Supplement name ensure - Head Head exam: Present: atraumatic, normal inspection - Eye Eye exam: Present: conjunctival injection. Absent: periorbital swelling, periorbital tenderness - ENT ENT exam: Present: mucous membranes dry, normal external ear exam - Neck Neck exam: Present: normal inspection. Absent: lymphadenopathy, meningismus - Respiratory Respiratory exam: Present: decreased breath sounds. Absent: accessory muscle use, chest wall tenderness - Cardiovascular Cardiovascular exam: Present: normal rate and rhythm, clicks, diastolic murmur - GI/Abdominal GI/Abdominal exam: Present: normal bowel sounds, soft. Absent: bruit, diminished bowel sounds - Neurological Exam Neurological exam: Present: abnormal gait, alert, oriented X3. Absent: motor sensory deficit, reflexes normal Medical - PN: Obj Da - Labs CBC & Chem 7: 06/27/19 04:36 06/27/19 04:36 Labs: Abnormal Lab Results 06/27/19 06/27/19 06/26/19 04:36 04:36 04:35 RBC 2.64 L Hgb 9.4 L Hct 29.1 L MCV 110.2 H MCH 35.4 H RDW 16.5 H Monocytes % (Manual) 13 H RBC Morphology Abnorm A Polychromasia 1+ A Hypochromasia 1+ A Anisocytosis 1+ A Macrocytosis 3+ A Carbon Dioxide 21 L 19 L BUN Creatinine 0.5 L Glucose Calcium 8.5 L Phosphorus 5.4 H 5.5 H GGT 237 H 268 H AST 50 H Lactate Dehydrogenase 286 H 403 H Total Protein 5.1 L 5.2 L Albumin 2.5 L 2.3 L Albumin/Globulin Ratio 0.8 L 06/26/19 06/25/19 06/25/19 04:35 03:45 03:45 RBC 2.82 L 2.50 L Hgb 10.3 L 8.9 L Hct 31.6 L 27.5 L MCV 112.1 H 109.8 H MCH 36.7 H 35.6 H RDW 16.2 H 16.9 H Monocytes % (Manual) RBC Morphology Abnorm A Abnorm A Polychromasia 1+ A 1+ A Hypochromasia 2+ A 1+ A Anisocytosis 1+ A 1+ A Macrocytosis 3+ A 2+ A Carbon Dioxide BUN 3 L Creatinine 0.5 L Glucose 117 H Calcium 8.1 L Phosphorus 4.9 H GGT 253 H AST 61 H Lactate Dehydrogenase 330 H Total Protein 4.6 L Albumin 2.2 L Albumin/Globulin Ratio 0.9 L Meds: Medications Acetaminophen (Tylenol) 650 mg PO Q4-6HP PRN; Protocol PRN Reason: Per Pain Protocol/Fever > 101 Last Admin: 06/27/19 04:42 Dose: 650 mg Documented by: Hydrocodone Bitart/Acetaminophen ([place] 5/325mg) 1 tab PO Q4HP PRN PRN Reason: PAIN LEVEL 3-6 Last Admin: 06/26/19 16:38 Dose: 1 tab Documented by: Bisacodyl (Dulcolax) 10 mg NM Q2-3DAYS PRN PRN Reason: Constipation Docusate Sodium (Colace) 100 mg PO BID [facility] Last Admin: 06/26/19 20:07 Dose: Not Given Documented by: Folic Acid (Folic Acid) 1 mg PO DAILY [facility] Last Admin: 06/26/19 09:08 Dose: 1 mg Documented by: Heparin Sodium (Porcine) (Heparin) 5,000 unit SQ Q12 [facility] Last Admin: 06/26/19 20:07 Dose: 5,000 unit Documented by: Potassium Chloride 40 meq/ (Dextrose) 520 mls @ 130 mls/hr IV UD PRN PRN Reason: K+ = or < 3.5 Magnesium Sulfate (Magnesium Sulfate) 2 gm in 50 mls @ 50 mls/hr IV UD PRN PRN Reason: MG = or < 1.7 Acetaminophen (Ofirmev) 650 mg in 65 mls @ 130 mls/hr IV Q6HP PRN; Protocol PRN Reason: Per Pain Protocol/Fever > 101 Iron Carb/Multivit/[place]/Folic Acid (Multivitamin W/Minerals) 1 tab PO DAILY [facility] Last Admin: 06/26/19 09:07 Dose: 1 tab Documented by: Magnesium Oxide (Magnesium Oxide) 400 mg PO BID [facility] Stop: 06/29/19 09:00 Melatonin (Melatonin 3mg Tablet) 3 mg PO HSP PRN PRN Reason: Insomnia Last Admin: 06/26/19 20:07 Dose: 3 mg Documented by: Nicotine (Nicoderm) 14 mg TOPICAL DAILY@1000 [facility] Last Admin: 06/26/19 09:07 Dose: 14 mg Documented by: Ondansetron HCl (Zofran) 4 mg IV Q4HP PRN PRN Reason: Nausea And Vomiting Ondansetron HCl (Zofran Odt) 4 mg SL Q4-6HP PRN; Protocol PRN Reason: Nausea And Vomiting Polyethylene Glycol (Miralax) 17 gm PO DAILYP PRN PRN Reason: Constipation Potassium Chloride (Klor-Con) 40 meq PO DAILYP PRN PRN Reason: K+ < 3.5 Potassium Chloride (Potassium Chloride) 15 meq PO BIDCC [facility] Last Admin: 06/27/19 08:56 Dose: Not Given Documented by: Senna/Docusate Sodium (Senna Plus Tablet) 1 tab PO HS [facility] Last Admin: 06/26/19 20:07 Dose: Not Given Documented by: Sodium Chloride (Saline Flush) 10 ml IV Q8 [facility] Last Admin: 06/27/19 04:42 Dose: 10 ml Documented by: Thiamine HCl (Vitamin B1) 100 mg PO DAILY [facility] Last Admin: 06/26/19 09:07 Dose: 100 mg Documented by: Medical - PN: A/P - Time Spent With Patient Total time spent is greater than 50% in coordination of care (as documented) at patient's floor/unit and/or counseling patient: - Narrative A/P Narrative: Acute delirium tremens-improved Acute encephalopathy-improved Secondary to alcohol withdrawal She is on supportive medications and crystalloids benzodiazepine multivitamins We will discontinue CIWA protocol electrolytes replacement on board Discontinued IV fluids She is encouraged how p.o. intake Dehydration-lactic acidosis-improved Discontinue IV fluid UTI Probable bacteriuria Urine culture probably contamination Severe deconditioning and weakness Ordered PT OT evaluation case management for placement Patient is unsteady and unsafe to go home Severe protein calorie malnutrition Dietitian consult and recommendations Alcoholic liver disease with elevated LFT Strongly encouraged the patient to quit alcohol Patient would benefit from rehab placement and case management involved Essential hypertension Continue lisinopril CODE STATUS-full code Medical - PN: Qual - VTE Deep Vein Thrombosis/Pulmonary Embolism Present on Admission: No
[2019-06-27] MEDS: MAGNESIUM OXIDE 400 MG TABLET PO SCH ×2 (11:13→20:29)
[2019-06-27] MEDS: FOLIC ACID 1 MG TABLET PO SCH (11:13)
[2019-06-27] MEDS: DOCUSATE SODIUM 100 MG CAPSULE PO SCH ×2 (11:14→20:28)
[2019-06-27] MEDS: NICOTINE 14 MG PATCH TOPICAL SCH (11:14)
[2019-06-27] MEDS: MULTIVIT,THER IRON,CA,FA & MIN 1 TABLET PO SCH (11:14)
[2019-06-27] MEDS: HEPARIN 5,000 UNIT/ML VIAL SQ SCH ×2 (11:14→20:28)
[2019-06-27] MEDS: THIAMINE 100 MG TABLET PO SCH (11:16)
[2019-06-27] MEDS: CYANOCOBALAMIN (VITAMIN B-12) 500 MCG TABLET PO SCH (11:16)
[2019-06-27] MEDS: MAGNESIUM SULFATE 2 GM/50 ML BAG IV PRN ×2 (11:17→14:25)
[2019-06-27] MEDS: SENNOSIDES/DOCUSATE SODIUM 1 TAB TABLET PO SCH (20:28)
[2019-06-27] MEDS: HYDROcodone/APAP 5/325MG TABLET PO PRN (20:29)
[2019-06-27] MEDS: MELATONIN 3 MG TABLET PO PRN (20:29)
[2019-06-28] MEDS: 0.9 % SODIUM CHLORIDE 10 ML SYRINGE IV SCH ×3 (12:22→21:33)
[2019-06-28] MEDS: DOCUSATE SODIUM 100 MG CAPSULE PO SCH ×2 (12:22→21:32)
--- NOTE | 2019-06-28 15:14 | Internal Med Progress Note ---
Medical - PN: Subj Patient information: Note initiated : 06/28/19 at 3:05 pm Service Date, if different from initiated Date: [] Patient: Do Cantu a 59 y/o F admitted on 06/23/19 for weakness. Chief Complaint: [nausea and abdominal discomfort] Ms. Cantu is a 59 year old F with a history of chronic alcoholism drinking upto a 5th of whisky presents to the ER with increasing nausea and abdominal discomfort Today she does not have any new complaints. Vital signs are stable. When I ask ed her, " do you have any family". She was angry No overnight events Interval history: Ms. Cantu is a 59 year old F with a history of chronic alcohol abuse, up to a 5th of whisky presented to the ER with increasing nausea and abdominal discomfort. In the ER, she was found to have UTI. CIWA score was 6. Thus hospitalist service was consulted for admission. She was admitted to the hospital. In the hospital, she was treated by CIWA protocol and other supportive treatment was given. Her medical condition gradually improved. She lives alone and does not have any family. She needs facility placement. Pertinent ROS: Placement - Constitutional Vitals: Vital Signs Temp Pulse Resp BP Pulse Ox 98.7 F 97 H 16 112/62 98 06/28/19 12:00 06/28/19 08:00 06/28/19 12:00 06/28/19 12:00 06/28/19 12:00 Period Temp Pulse Resp BP Sys/Manning Pulse Ox Last 24 Hr 97.4 F-98.7 F 68-97 12-20 95-128/62-84 94-98 Intake and Output 06/28/19 06/28/19 06/28/19 05:59 13:59 21:59 Intake Total 480 50 Output Total 501 Balance -21 50 Weight 49.895 kg Patient Weight 06/29/19 05:59 Weight 49.895 kg Intake & Output: Intake & Output 06/28/19 06/28/19 06/28/19 05:59 13:59 21:59 Intake Total 480 50 Output Total 501 Balance -21 50 Weight 49.895 kg Intake: IV 50 Oral 480 Output: Void Amount 500 # of times incontinent of urine 1 Other: Urine Appearance Clear Urine Color Pale Urine Odor Foul General appearance: thin - Eye Eye exam: Present: EOMI, PERRL - ENT ENT exam: Present: normal exam - Neck Neck exam: Present: normal inspection - Respiratory Respiratory exam: Present: CTAB - Cardiovascular Cardiovascular exam: Present: normal rate and rhythm - GI/Abdominal GI/Abdominal exam: Present: normal bowel sounds, soft - Extremities Exam Extremities exam: Present: full ROM (tremor noted in both hands and head) - Neurological Exam Neurological exam: Present: alert (No focal neurological deficits) - Psychiatric Psychiatric exam: Present: flat affect Medical - PN: Obj Da - Labs CBC & Chem 7: 06/27/19 04:36 06/27/19 04:36 Labs: Abnormal Lab Results 06/27/19 06/27/19 06/26/19 04:36 04:36 04:35 RBC 2.64 L Hgb 9.4 L Hct 29.1 L MCV 110.2 H MCH 35.4 H RDW 16.5 H Monocytes % (Manual) 13 H RBC Morphology Abnorm A Polychromasia 1+ A Hypochromasia 1+ A Anisocytosis 1+ A Macrocytosis 3+ A Carbon Dioxide 21 L 19 L Creatinine 0.5 L Calcium 8.5 L Phosphorus 5.4 H 5.5 H GGT 237 H 268 H AST 50 H Lactate Dehydrogenase 286 H 403 H Total Protein 5.1 L 5.2 L Albumin 2.5 L 2.3 L Albumin/Globulin Ratio 0.8 L 06/26/19 04:35 RBC 2.82 L Hgb 10.3 L Hct 31.6 L MCV 112.1 H MCH 36.7 H RDW 16.2 H Monocytes % (Manual) RBC Morphology Abnorm A Polychromasia 1+ A Hypochromasia 2+ A Anisocytosis 1+ A Macrocytosis 3+ A Carbon Dioxide Creatinine Calcium Phosphorus GGT AST Lactate Dehydrogenase Total Protein Albumin Albumin/Globulin Ratio Meds: Medications Acetaminophen (Tylenol) 650 mg PO Q4-6HP PRN; Protocol PRN Reason: Per Pain Protocol/Fever > 101 Last Admin: 06/27/19 04:42 Dose: 650 mg Documented by: Hydrocodone Bitart/Acetaminophen ([place] 5/325mg) 1 tab PO Q4HP PRN PRN Reason: PAIN LEVEL 3-6 Last Admin: 06/27/19 20:29 Dose: 1 tab Documented by: Bisacodyl (Dulcolax) 10 mg IA Q2-3DAYS PRN PRN Reason: Constipation Docusate Sodium (Colace) 100 mg PO BID [facility] Last Admin: 06/28/19 12:22 Dose: Not Given Documented by: Folic Acid (Folic Acid) 1 mg PO DAILY [facility] Last Admin: 06/28/19 11:55 Dose: 1 mg Documented by: Heparin Sodium (Porcine) (Heparin) 5,000 unit SQ Q12 [facility] Last Admin: 06/28/19 11:54 Dose: 5,000 unit Documented by: Potassium Chloride 40 meq/ (Dextrose) 520 mls @ 130 mls/hr IV UD PRN PRN Reason: K+ = or < 3.5 Magnesium Sulfate (Magnesium Sulfate) 2 gm in 50 mls @ 50 mls/hr IV UD PRN PRN Reason: MG = or < 1.7 Last Infusion: 06/28/19 06:00 Dose: Infused Documented by: Acetaminophen (Ofirmev) 650 mg in 65 mls @ 130 mls/hr IV Q6HP PRN; Protocol PRN Reason: Per Pain Protocol/Fever > 101 Iron Carb/Multivit/[employer]/Folic Acid (Multivitamin W/Minerals) 1 tab PO DAILY [facility] Last Admin: 06/28/19 11:55 Dose: 1 tab Documented by: Magnesium Oxide (Magnesium Oxide) 400 mg PO BID [facility] Stop: 06/29/19 09:00 Last Admin: 06/28/19 11:56 Dose: 400 mg Documented by: Melatonin (Melatonin 3mg Tablet) 3 mg PO HSP PRN PRN Reason: Insomnia Last Admin: 06/27/19 20:29 Dose: 3 mg Documented by: Nicotine (Nicoderm) 14 mg TOPICAL DAILY@1000 [facility] Last Admin: 06/27/19 11:14 Dose: 14 mg Documented by: Ondansetron HCl (Zofran) 4 mg IV Q4HP PRN PRN Reason: Nausea And Vomiting Last Admin: 06/27/19 21:25 Dose: 4 mg Documented by: Ondansetron HCl (Zofran Odt) 4 mg SL Q4-6HP PRN; Protocol PRN Reason: Nausea And Vomiting Polyethylene Glycol (Miralax) 17 gm PO DAILYP PRN PRN Reason: Constipation Potassium Chloride (Klor-Con) 40 meq PO DAILYP PRN PRN Reason: K+ < 3.5 Potassium Chloride (Potassium Chloride) 15 meq PO BIDCC [facility] Last Admin: 06/28/19 11:56 Dose: 15 meq Documented by: Senna/Docusate Sodium (Senna Plus Tablet) 1 tab PO HS [facility] Last Admin: 06/27/19 20:28 Dose: 1 tab Documented by: Sodium Chloride (Saline Flush) 10 ml IV Q8 [facility] Last Admin: 06/28/19 12:22 Dose: Not Given Documented by: Thiamine HCl (Vitamin B1) 100 mg PO DAILY [facility] Last Admin: 06/28/19 11:55 Dose: 100 mg Documented by: Medical - PN: A/P - Time Spent With Patient Total time spent is greater than 50% in coordination of care (as documented) at patient's floor/unit and/or counseling patient: (1) Alcohol abuse Status: Chronic Current Visit: No - Narrative A/P Narrative: Assessment: 1. Acute delirium tremens, secondary to alcohol withdrawal-improved 2. Acute encephalopathy-improved 3. Dehydration-lactic acidosis-improved 4. UTI 5. Severe deconditioning and weakness 6. Severe protein calorie malnutrition 7. Alcoholic liver disease with elevated LFT 8. HTN 9. Self care deficits Plan: 1. CIWA protocol was discontinued. Continue to folate and thiame. Monitor electrolytes 2. IVF 3. Encouraged oral intake 4. Urine culture probably contamination 5. consult for chronic alcohol use 6. Continue lisinopril for HTN 7. DVT prophylaxis: heparin 8. Code status: full Deposition: PT/OT recommended rehab - placement Medical - PN: Qual - VTE Deep Vein Thrombosis/Pulmonary Embolism Present on Admission: No
[2019-06-28] MEDS: NICOTINE 14 MG PATCH TOPICAL SCH (16:15)
[2019-06-28] MEDS: POTASSIUM CHLORIDE 20 MEQ/15 ML ML PO SCH ×2 (16:30→21:32)
[2019-06-28] MEDS: MULTIVIT,THER IRON,CA,FA & MIN 1 TABLET PO SCH (16:30)
[2019-06-28] MEDS: THIAMINE 100 MG TABLET PO SCH (16:30)
[2019-06-28] MEDS: FOLIC ACID 1 MG TABLET PO SCH (16:30)
[2019-06-28] MEDS: MAGNESIUM OXIDE 400 MG TABLET PO SCH ×2 (16:30→21:32)
[2019-06-28] MEDS: HEPARIN 5,000 UNIT/ML VIAL SQ SCH ×2 (16:30→21:31)
[2019-06-28] MEDS: SENNOSIDES/DOCUSATE SODIUM 1 TAB TABLET PO SCH (21:32)
[2019-06-28] MEDS: MELATONIN 3 MG TABLET PO PRN (22:18)
[2019-06-29 09:06] LABS: Basophils # (Auto) 0.1 K/mcL (0.0-0.3); Basophils % (Auto) 0.8 % (0.0-2.0); Eosinophils # (Auto) 0.1 K/mcL (0.0-0.7); Granulocytes % (Auto) 62.4 % (38.0-78.0); Hematocrit 31.8 % (36.0-48.0); Hemoglobin 10.4 g/dL (12.0-15.0); Lymphocytes % (Auto) 25.8 % (15.5-49.0); Mean Cell Volume 107.1 fL (80.0-100.0); Mean Corpuscular HGB Conc 32.8 g/dL (31.0-36.0); Mean Platelet Volume 7.6 fL (7.4-10.4); Monocytes # (Auto) 0.8 K/mcL (0.1-0.9); Platelet Count 390 K/mcL (140-440); RBC 2.97 M/mcL (4.00-5.20); Red Cell Distribution Width 15.9 % (11.5-14.5); WBC 7.9 K/mcL (4.5-11.0)
[2019-06-29] MEDS: HEPARIN 5,000 UNIT/ML VIAL SQ SCH ×2 (09:09→19:54)
[2019-06-29] MEDS: DOCUSATE SODIUM 100 MG CAPSULE PO SCH ×2 (09:10→19:53)
[2019-06-29] MEDS: POTASSIUM CHLORIDE 20 MEQ/15 ML ML PO SCH ×2 (09:10→16:55)
[2019-06-29] MEDS: FOLIC ACID 1 MG TABLET PO SCH (09:10)
[2019-06-29] MEDS: THIAMINE 100 MG TABLET PO SCH (09:10)
[2019-06-29] MEDS: MULTIVIT,THER IRON,CA,FA & MIN 1 TABLET PO SCH (09:11)
[2019-06-29] MEDS: MAGNESIUM OXIDE 400 MG TABLET PO SCH (09:11)
[2019-06-29] MEDS: 0.9 % SODIUM CHLORIDE 10 ML SYRINGE IV SCH ×2 (09:11→16:55)
[2019-06-29 09:27] LABS: ALT/SGPT 13 U/l (0-40); AST/SGOT 21 U/l (0-37); Albumin 3.1 gm/dL (3.2-5.2); Alkaline Phosphatase 103 U/L (39-117); Bilirubin,Total 0.3 mg/dL (0.0-1.0); Blood Urea Nitrogen 10 mg/dl (6-20); Calcium 9.1 mg/dl (8.6-10.4); Carbon Dioxide 25 mmol/L (22-30); Chloride 101 mmol/L (96-108); Glomerular Filtration Rate 94; Glucose 92 mg/dL (70-105)
[2019-06-29 09:28] LABS: Globulin 3.1 gm/dL (2.2-3.7)
[2019-06-29] MEDS: NICOTINE 14 MG PATCH TOPICAL SCH (10:01)
[2019-06-29] MEDS: HYDROcodone/APAP 5/325MG TABLET PO PRN (19:53)
[2019-06-29] MEDS: SENNOSIDES/DOCUSATE SODIUM 1 TAB TABLET PO SCH (19:54)
--- NOTE | 2019-06-29 21:05 | Internal Med Progress Note ---
Medical - PN: Subj Patient information: Note initiated : 06/29/19 at 9:02 pm Service Date, if different from initiated Date: [] Patient: Do Cantu a 59 y/o F admitted on 06/23/19 for weakness. Chief Complaint: [] Ms. Cantu is a 59 year old F with a history of chronic alcohol abuse, up to a 5th of whisky presented to the ER with increasing nausea and abdominal discomfort. In the ER, she was found to have UTI. CIWA score was 6. Thus hospitalist service was consulted for admission. She was admitted to the [facility]. In the hospital, she was treated by CIWA protocol and other supportive treatment was given. Her medical condition gradually improved. She lives alone and does not have any family. She needs facility placement. Today she feels fine and does not have any new complaints. Vital signs are stable. No overnight events - Constitutional Vitals: Vital Signs Temp Pulse Resp BP Pulse Ox 98.7 F 106 H 16 100/63 96 06/29/19 19:41 06/29/19 19:41 06/29/19 19:41 06/29/19 19:41 06/29/19 19:41 Period Temp Pulse Resp BP Sys/Manning Pulse Ox Last 24 Hr 97.2 F-98.8 F 77-106 14-16 82-129/52-75 94-96 Intake and Output 06/29/19 06/29/19 06/29/19 05:59 13:59 21:59 Intake Total 200 600 200 Output Total 200 2 703 Balance 0 598 -503 Weight 50.802 kg Patient Weight 06/30/19 05:59 Weight 50.802 kg Intake & Output: Intake & Output 06/29/19 06/29/19 06/29/19 05:59 13:59 21:59 Intake Total 200 600 200 Output Total 200 2 703 Balance 0 598 -503 Weight 50.802 kg Intake: Nourishment/Supplement quantity 0 (ml) Oral 200 600 200 Output: Void Amount 200 700 # of times incontinent of urine 2 3 Other: Meal Breakfast Percent of Meal Consumed 50% Feeding Ability Assist with Tray Set Up Urine Appearance Clear Clear Clear Urine Color Bright Yellow Bright Yellow Dark Yellow Urine Odor Strong Stool Size Moderate Stool Color Brown Stool Consistency Soft Formed # Voids 1 1 # Bowel Movements 1 General appearance: no acute distress - Head Head exam: Present: normal inspection - Eye Eye exam: Present: EOMI, PERRL - ENT ENT exam: Present: normal exam - Neck Neck exam: Present: normal inspection - Respiratory Respiratory exam: Present: normal respiratory exam, CTAB - Cardiovascular Cardiovascular exam: Present: normal rate and rhythm - GI/Abdominal GI/Abdominal exam: Present: normal bowel sounds, soft - Extremities Exam Extremities exam: Absent: tenderness, Merlyn's sign - Neurological Exam Neurological exam: Present: alert (No focal neurological deficits) - Psychiatric Psychiatric exam: Present: normal mood - Skin Skin exam: Present: warm Medical - PN: Obj Da - Labs CBC & Chem 7: 06/29/19 07:58 06/29/19 07:58 Labs: Abnormal Lab Results 06/29/19 06/29/19 06/27/19 07:58 07:58 04:36 RBC 2.97 L Hgb 10.4 L Hct 31.8 L MCV 107.1 H MCH 35.1 H RDW 15.9 H Monocytes % (Manual) RBC Morphology Polychromasia Hypochromasia Anisocytosis Macrocytosis Carbon Dioxide 21 L Phosphorus 5.4 H GGT 237 H Lactate Dehydrogenase 286 H Total Protein 5.1 L Albumin 3.1 L 2.5 L 06/27/19 04:36 RBC 2.64 L Hgb 9.4 L Hct 29.1 L MCV 110.2 H MCH 35.4 H RDW 16.5 H Monocytes % (Manual) 13 H RBC Morphology Abnorm A Polychromasia 1+ A Hypochromasia 1+ A Anisocytosis 1+ A Macrocytosis 3+ A Carbon Dioxide Phosphorus GGT Lactate Dehydrogenase Total Protein Albumin Meds: Medications Acetaminophen (Tylenol) 650 mg PO Q4-6HP PRN; Protocol PRN Reason: Per Pain Protocol/Fever > 101 Last Admin: 06/27/19 04:42 Dose: 650 mg Documented by: Hydrocodone Bitart/Acetaminophen ([place] 5/325mg) 1 tab PO Q4HP PRN PRN Reason: PAIN LEVEL 3-6 Last Admin: 06/29/19 19:53 Dose: 1 tab Documented by: Bisacodyl (Dulcolax) 10 mg [place] Q2-3DAYS PRN PRN Reason: Constipation Docusate Sodium (Colace) 100 mg PO BID [facility] Last Admin: 06/29/19 19:53 Dose: 100 mg Documented by: Folic Acid (Folic Acid) 1 mg PO DAILY [facility] Last Admin: 06/29/19 09:10 Dose: 1 mg Documented by: Heparin Sodium (Porcine) (Heparin) 5,000 unit SQ Q12 [facility] Last Admin: 06/29/19 19:54 Dose: 5,000 unit Documented by: Potassium Chloride 40 meq/ (Dextrose) 520 mls @ 130 mls/hr IV UD PRN PRN Reason: K+ = or < 3.5 Magnesium Sulfate (Magnesium Sulfate) 2 gm in 50 mls @ 50 mls/hr IV UD PRN PRN Reason: MG = or < 1.7 Last Infusion: 06/28/19 06:00 Dose: Infused Documented by: Acetaminophen (Ofirmev) 650 mg in 65 mls @ 130 mls/hr IV Q6HP PRN; Protocol PRN Reason: Per Pain Protocol/Fever > 101 Iron Carb/Multivit/[place]/Folic Acid (Multivitamin W/Minerals) 1 tab PO DAILY [facility] Last Admin: 06/29/19 09:11 Dose: 1 tab Documented by: Melatonin (Melatonin 3mg Tablet) 3 mg PO HSP PRN PRN Reason: Insomnia Last Admin: 06/28/19 22:18 Dose: 3 mg Documented by: Nicotine (Nicoderm) 14 mg TOPICAL DAILY@1000 [facility] Last Admin: 06/29/19 10:01 Dose: 14 mg Documented by: Ondansetron HCl (Zofran) 4 mg IV Q4HP PRN PRN Reason: Nausea And Vomiting Last Admin: 06/27/19 21:25 Dose: 4 mg Documented by: Ondansetron HCl (Zofran Odt) 4 mg SL Q4-6HP PRN; Protocol PRN Reason: Nausea And Vomiting Polyethylene Glycol (Miralax) 17 gm PO DAILYP PRN PRN Reason: Constipation Potassium Chloride (Klor-Con) 40 meq PO DAILYP PRN PRN Reason: K+ < 3.5 Potassium Chloride (Potassium Chloride) 15 meq PO BIDCC [facility] Last Admin: 06/29/19 16:55 Dose: 15 meq Documented by: Senna/Docusate Sodium (Senna Plus Tablet) 1 tab PO HS [facility] Last Admin: 06/29/19 19:54 Dose: 1 tab Documented by: Sodium Chloride (Saline Flush) 10 ml IV Q8 [facility] Last Admin: 06/29/19 16:55 Dose: 10 ml Documented by: Thiamine HCl (Vitamin B1) 100 mg PO DAILY [facility] Last Admin: 06/29/19 09:10 Dose: 100 mg Documented by: Medical - PN: A/P - Time Spent With Patient Total time spent is greater than 50% in coordination of care (as documented) at patient's floor/unit and/or counseling patient: (1) Alcohol abuse Status: Chronic Current Visit: No - Narrative A/P Narrative: Assessment: 1. Acute delirium tremens, secondary to alcohol withdrawal-improved 2. Acute encephalopathy-improved 3. Dehydration-lactic acidosis-improved 4. UTI 5. Severe deconditioning and weakness 6. Severe protein calorie malnutrition 7. Alcoholic liver disease with elevated LFT 8. HTN 9. Self care deficits Plan: 1. CIWA protocol was discontinued. She is relatively stable. Continue to folate and thiame. Monitor electrolytes 2. Encouraged oral intake 3. Urine culture probably contamination 4. consult for chronic alcohol use 5. Continue lisinopril for HTN 6. DVT prophylaxis: heparin 7. Code status: full Deposition: PT/OT recommended rehab - placement Medical - PN: Qual - VTE Deep Vein Thrombosis/Pulmonary Embolism Present on Admission: No
[2019-06-30] MEDS: 0.9 % SODIUM CHLORIDE 10 ML SYRINGE IV SCH ×4 (00:20→21:23)
[2019-06-30 06:32] LABS: Basophils # (Auto) 0.1 K/mcL (0.0-0.3); Basophils % (Auto) 0.9 % (0.0-2.0); Eosinophils # (Auto) 0.1 K/mcL (0.0-0.7); Eosinophils % (Auto) 1.3 % (0.0-7.0); Granulocytes % (Auto) 60.9 % (38.0-78.0); Hematocrit 28.4 % (36.0-48.0); Hemoglobin 9.3 g/dL (12.0-15.0); Lymphocytes # (Auto) 1.7 K/mcL (1.5-4.8); Lymphocytes % (Auto) 24.5 % (15.5-49.0); Mean Cell Volume 108.1 fL (80.0-100.0); Mean Corpuscular HGB Conc 32.8 g/dL (31.0-36.0); Mean Platelet Volume 7.8 fL (7.4-10.4); Monocytes # (Auto) 0.9 K/mcL (0.1-0.9); Monocytes % (Auto) 12.4 % (1.0-12.0); Platelet Count 408 K/mcL (140-440); RBC 2.62 M/mcL (4.00-5.20); Red Cell Distribution Width 16.6 % (11.5-14.5); WBC 7.1 K/mcL (4.5-11.0)
[2019-06-30 06:46] LABS: ALT/SGPT 10 U/l (0-40); AST/SGOT 18 U/l (0-37); Albumin 2.7 gm/dL (3.2-5.2); Alkaline Phosphatase 84 U/L (39-117); Bilirubin,Total < 0.2 mg/dL (0.0-1.0); Blood Urea Nitrogen 12 mg/dl (6-20); Calcium 8.7 mg/dl (8.6-10.4); Carbon Dioxide 21 mmol/L (22-30); Chloride 102 mmol/L (96-108); Globulin 2.8 gm/dL (2.2-3.7); Glomerular Filtration Rate 99; Glucose 103 mg/dL (70-105)
[2019-06-30] MEDS: POTASSIUM CHLORIDE 20 MEQ/15 ML ML PO SCH ×2 (09:51→18:41)
[2019-06-30] MEDS: NICOTINE 14 MG PATCH TOPICAL SCH (09:52)
[2019-06-30] MEDS: HEPARIN 5,000 UNIT/ML VIAL SQ SCH ×2 (09:52→21:23)
[2019-06-30] MEDS: HYDROcodone/APAP 5/325MG TABLET PO PRN ×2 (09:52→21:23)
[2019-06-30] MEDS: FOLIC ACID 1 MG TABLET PO SCH (09:53)
[2019-06-30] MEDS: MULTIVIT,THER IRON,CA,FA & MIN 1 TABLET PO SCH (09:53)
[2019-06-30] MEDS: THIAMINE 100 MG TABLET PO SCH (09:53)
[2019-06-30] MEDS: DOCUSATE SODIUM 100 MG CAPSULE PO SCH ×2 (09:54→21:23)
--- NOTE | 2019-06-30 11:50 | Internal Med Progress Note ---
Medical - PN: Subj Patient information: Note initiated : 06/30/19 at 11:45 am Service Date, if different from initiated Date: [] Patient: Do Cantu 59 y/o F admitted on 06/23/19 for weakness. Chief Complaint: [] Ms. Cantu is a 59 year old F with a history of chronic alcohol abuse, up to a 5th of whisky presented to the ER with increasing nausea and abdominal discomfort. In the ER, she was found to have UTI. CIWA score was 6. Thus hospitalist service was consulted for admission. She was admitted to the [facility]. In the hospital, she was treated by CIWA protocol and other supportive treatment was given. Her medical condition gradually improved. She lives alone and does not have any family. She needs facility placement. She feels fine and does not have any new complaints. Denies n/v/dizziness. Vital signs are stable. No overnight events - Constitutional Vitals: Vital Signs Temp Pulse Resp BP Pulse Ox 98.3 F 90 18 119/78 95 06/30/19 07:40 06/30/19 07:40 06/30/19 07:40 06/30/19 07:40 06/30/19 07:40 Period Temp Pulse Resp BP Sys/Manning Pulse Ox Last 24 Hr 97.2 F-98.7 F 89-106 16-18 100-129/63-78 94-96 Intake and Output 06/29/19 06/30/19 06/30/19 21:59 05:59 13:59 Intake Total 200 1080 240 Output Total 703 800 950 Balance -503 280 -710 Weight 50.802 kg Intake & Output: Intake & Output 06/29/19 06/30/19 06/30/19 21:59 05:59 13:59 Intake Total 200 1080 240 Output Total 703 800 950 Balance -503 280 -710 Weight 50.802 kg Intake: Oral 200 1080 240 Output: Void Amount 700 800 950 # of times incontinent of urine 3 Other: Urine Appearance Clear Clear Clear Urine Color Dark Yellow Bright Yellow Pale Urine Odor Strong Strong Normal # Voids 1 General appearance: no acute distress - Head Head exam: Present: normal inspection - Eye Eye exam: Present: normal appearance - ENT ENT exam: Present: mucous membranes moist - Neck Neck exam: Present: normal inspection - Respiratory Respiratory exam: Present: normal respiratory exam, CTAB - Cardiovascular Cardiovascular exam: Present: normal rate and rhythm, RRR - GI/Abdominal GI/Abdominal exam: Present: normal bowel sounds, soft. Absent: tenderness - Extremities Exam Extremities exam: Absent: pedal edema, tenderness, Merlyn's sign - Neurological Exam Neurological exam: Present: alert. Absent: motor sensory deficit - Psychiatric Psychiatric exam: Present: normal affect - Skin Skin exam: Present: warm Medical - PN: Obj Da - Labs CBC & Chem 7: 06/30/19 04:49 06/30/19 04:49 Labs: Abnormal Lab Results 06/30/19 06/30/19 06/29/19 04:49 04:49 07:58 RBC 2.62 L Hgb 9.3 L Hct 28.4 L MCV 108.1 H MCH 35.4 H RDW 16.6 H [place] % (Auto) 12.4 H Carbon Dioxide 21 L Total Protein 5.5 L Albumin 2.7 L 3.1 L 06/29/19 07:58 RBC 2.97 L Hgb 10.4 L Hct 31.8 L MCV 107.1 H MCH 35.1 H RDW 15.9 H [place] % (Auto) Carbon Dioxide Total Protein Albumin Meds: Medications Acetaminophen (Tylenol) 650 mg PO Q4-6HP PRN; Protocol PRN Reason: Per Pain Protocol/Fever > 101 Last Admin: 06/27/19 04:42 Dose: 650 mg Documented by: Hydrocodone Bitart/Acetaminophen ([place] 5/325mg) 1 tab PO Q4HP PRN PRN Reason: PAIN LEVEL 3-6 Last Admin: 06/30/19 09:52 Dose: 1 tab Documented by: Bisacodyl (Dulcolax) 10 mg [place] Q2-3DAYS PRN PRN Reason: Constipation Docusate Sodium (Colace) 100 mg PO BID [facility] Last Admin: 06/30/19 09:54 Dose: Not Given Documented by: Folic Acid (Folic Acid) 1 mg PO DAILY [facility] Last Admin: 06/30/19 09:53 Dose: 1 mg Documented by: Heparin Sodium (Porcine) (Heparin) 5,000 unit SQ Q12 [facility] Last Admin: 06/30/19 09:52 Dose: 5,000 unit Documented by: Potassium Chloride 40 meq/ (Dextrose) 520 mls @ 130 mls/hr IV UD PRN PRN Reason: K+ = or < 3.5 Magnesium Sulfate (Magnesium Sulfate) 2 gm in 50 mls @ 50 mls/hr IV UD PRN PRN Reason: MG = or < 1.7 Last Infusion: 06/28/19 06:00 Dose: Infused Documented by: Acetaminophen (Ofirmev) 650 mg in 65 mls @ 130 mls/hr IV Q6HP PRN; Protocol PRN Reason: Per Pain Protocol/Fever > 101 Iron Carb/Multivit/[place]/Folic Acid (Multivitamin W/Minerals) 1 tab PO DAILY [facility] Last Admin: 06/30/19 09:53 Dose: 1 tab Documented by: Melatonin (Melatonin 3mg Tablet) 3 mg PO HSP PRN PRN Reason: Insomnia Last Admin: 06/28/19 22:18 Dose: 3 mg Documented by: Nicotine (Nicoderm) 14 mg TOPICAL DAILY@1000 [facility] Last Admin: 06/30/19 09:52 Dose: 14 mg Documented by: Ondansetron HCl (Zofran) 4 mg IV Q4HP PRN PRN Reason: Nausea And Vomiting Last Admin: 06/27/19 21:25 Dose: 4 mg Documented by: Ondansetron HCl (Zofran Odt) 4 mg SL Q4-6HP PRN; Protocol PRN Reason: Nausea And Vomiting Polyethylene Glycol (Miralax) 17 gm PO DAILYP PRN PRN Reason: Constipation Potassium Chloride (Klor-Con) 40 meq PO DAILYP PRN PRN Reason: K+ < 3.5 Potassium Chloride (Potassium Chloride) 15 meq PO BIDCC [facility] Last Admin: 06/30/19 09:51 Dose: 15 meq Documented by: Senna/Docusate Sodium (Senna Plus Tablet) 1 tab PO HS [facility] Last Admin: 06/29/19 19:54 Dose: 1 tab Documented by: Sodium Chloride (Saline Flush) 10 ml IV Q8 [facility] Last Admin: 06/30/19 05:09 Dose: Not Given Documented by: Thiamine HCl (Vitamin B1) 100 mg PO DAILY [facility] Last Admin: 06/30/19 09:53 Dose: 100 mg Documented by: Medical - PN: A/P - Time Spent With Patient Total time spent is greater than 50% in coordination of care (as documented) at patient's floor/unit and/or counseling patient: (1) Alcohol abuse Status: Chronic Current Visit: No - Narrative A/P Narrative: Assessment: 1. Acute delirium tremens, secondary to alcohol withdrawal-improved 2. Acute encephalopathy-improved 3. Dehydration-lactic acidosis-improved 4. UTI 5. Severe deconditioning and weakness 6. Severe protein calorie malnutrition 7. Alcoholic liver disease with elevated LFT 8. HTN 9. Self care deficits Plan: 1. CIWA protocol was discontinued. She is relatively stable. Continue to folate and thiame. Monitor electrolytes 2. Encouraged oral intake 3. Urine culture probably contamination, repeat UA 4. consult for chronic alcohol use 5. Continue lisinopril for HTN 6. DVT prophylaxis: heparin 7. Code status: full Deposition: PT/OT recommended rehab - placement Medical - PN: Qual - VTE Deep Vein Thrombosis/Pulmonary Embolism Present on Admission: No
--- NOTE | 2019-06-30 15:59 | Internal Med Progress Note ---
Medical - PN: Subj Patient information: Note initiated : 06/30/19 at 3:52 pm Service Date, if different from initiated Date: [] Patient: Do Cantu a 59 y/o F admitted on 06/23/19 for weakness. Chief Complaint: [] Interval history: Ms. Cantu is a 59 year old F with a history of chronic alcoholism drinking upto a 5th of whisky presents to the ER with increasing nausea and abdominal discomfort over the last few days worsening in the last 2 4 hours, No associated bloody emesis, she also has associated loss of appetite and has been unable to eat or drink in the last 48 hours. She also had an episode of diarrhea and vomiting. She denies associated chest pain, weight loss, fever, headache, ligh theadedness, chest palpitation. Initial workup in the ER was consistent with UTI with urine dip. UA is pending. Also potassium at 2.9 magnesium 1 and was started on replacement. She received 2 L of crystalloids, 1 g Rocephin, Zofran and Reglan. Initial CIWA score 6. Subsequently hospitalist service was consulted for admission. She was also noted to have multiple episodes of diarrhea. She became incontinent. She was extremely weak At the time evaluation patient is lethargic but able to answer most of the questions. She appears anxious but no signs of tremors or hallucination. She i s mild tachycardia she denies changes in medications, she lives alone and does not have any family support except for a friend who visits her intermittently. She has been surviving on canned foods. She denies recent falls or injuries but endorses to generalized aches and weight pains. 06/23 -patient in [place] DTs despite oral alcohol. Discontinue alcohol and start CIWA protocol. Elevated lactate. Continue supportive management with crystalloids/IV MVI. Low magnesium and potassium on replacement. Mild cystitis, diarrhea improved. DC antibiotic coverage. 06/24-her delirium is slightly improved, continuing IV fluid hydration and CIWA protocol she was drowsy this morning, urine culture positive for coagulase- negative staph-we will start her on vancomycin 06/25-her delirium almost resolved She is alert but very tired following dose of Librium Discontinued vancomycin as the culture seems to be contaminant, will discontinue the CIWA protocol Will avoid any benzodiazepines Patient need placement, case management involved 06/26 -she is alert oriented today But appears to be tired We will discontinue all the benzodiazepines Discontinue antibiotics Physical therapy evaluation and patient need placement and case management on board 06/27-patient remains alert and oriented She is uncooperative, we discontinued benzodiazepines, discontinued antibiotics, physical therapy recommended rehab but patient waiting for insurance approval and case management and social service working. I do not think the patient will be safe to go home she is very 06/28 Today she does not have any new complaints. Vital signs are stable. When I asked her, " do you have any family". She was angry No overnight events 06/29 Today she feels fine and does not have any new complaints. Vital signs are stable. No overnight events 06/30 She feels fine and does not have any new complaints. Denies n/v/dizziness. Vital signs are stable. No overnight events - Constitutional Vitals: Vital Signs Temp Pulse Resp BP Pulse Ox 98.0 F 88 20 122/80 96 06/30/19 12:00 06/30/19 12:00 06/30/19 12:00 06/30/19 12:00 06/30/19 12:00 Period Temp Pulse Resp BP Sys/Manning Pulse Ox Last 24 Hr 97.2 F-98.7 F 88-106 16-20 100-129/63-80 94-96 Intake and Output 06/30/19 06/30/19 06/30/19 05:59 13:59 21:59 Intake Total 1080 240 Output Total 800 950 300 Balance 280 -710 -300 Intake & Output: Intake & Output 06/30/19 06/30/19 06/30/19 05:59 13:59 21:59 Intake Total 1080 240 Output Total 800 950 300 Balance 280 -710 -300 Intake: Oral 1080 240 Output: Urine Catheter Amount 300 Void Amount 800 950 Other: Urine Appearance Clear Clear Urine Color Bright Yellow Pale Urine Odor Strong Normal Exam: General: Alert, Awake, No acute Distress Eyes/N/T: EOMI, Head/Neck: neck supple, CV: RRR, No murmurs, Pulm: Clear b/l, no wheezing/rhonchi/rales Abd: soft, nontender, +BS x4 Ext: no clubbing/cyanosis/edema Neuro: Alert, no focal deficits, moves all extremities, Skin: warm/dry Medical - PN: Obj Da - Labs CBC & Chem 7: 06/30/19 04:49 06/30/19 04:49 Labs: Abnormal Lab Results 06/30/19 06/30/19 06/29/19 04:49 04:49 07:58 RBC 2.62 L Hgb 9.3 L Hct 28.4 L MCV 108.1 H MCH 35.4 H RDW 16.6 H [place] % (Auto) 12.4 H Carbon Dioxide 21 L Total Protein 5.5 L Albumin 2.7 L 3.1 L 06/29/19 07:58 RBC 2.97 L Hgb 10.4 L Hct 31.8 L MCV 107.1 H MCH 35.1 H RDW 15.9 H [place] % (Auto) Carbon Dioxide Total Protein Albumin Meds: Medications Acetaminophen (Tylenol) 650 mg PO Q4-6HP PRN; Protocol PRN Reason: Per Pain Protocol/Fever > 101 Last Admin: 06/27/19 04:42 Dose: 650 mg Documented by: Hydrocodone Bitart/Acetaminophen ([place] 5/325mg) 1 tab PO Q4HP PRN PRN Reason: PAIN LEVEL 3-6 Last Admin: 06/30/19 09:52 Dose: 1 tab Documented by: Bisacodyl (Dulcolax) 10 mg [place] Q2-3DAYS PRN PRN Reason: Constipation Docusate Sodium (Colace) 100 mg PO BID [facility] Last Admin: 06/30/19 09:54 Dose: Not Given Documented by: Folic Acid (Folic Acid) 1 mg PO DAILY [facility] Last Admin: 06/30/19 09:53 Dose: 1 mg Documented by: Heparin Sodium (Porcine) (Heparin) 5,000 unit SQ Q12 [facility] Last Admin: 06/30/19 09:52 Dose: 5,000 unit Documented by: Potassium Chloride 40 meq/ (Dextrose) 520 mls @ 130 mls/hr IV UD PRN PRN Reason: K+ = or < 3.5 Magnesium Sulfate (Magnesium Sulfate) 2 gm in 50 mls @ 50 mls/hr IV UD PRN PRN Reason: MG = or < 1.7 Last Infusion: 06/28/19 06:00 Dose: Infused Documented by: Acetaminophen (Ofirmev) 650 mg in 65 mls @ 130 mls/hr IV Q6HP PRN; Protocol PRN Reason: Per Pain Protocol/Fever > 101 Iron Carb/Multivit/[place]/Folic Acid (Multivitamin W/Minerals) 1 tab PO DAILY [facility] Last Admin: 06/30/19 09:53 Dose: 1 tab Documented by: Melatonin (Melatonin 3mg Tablet) 3 mg PO HSP PRN PRN Reason: Insomnia Last Admin: 06/28/19 22:18 Dose: 3 mg Documented by: Nicotine (Nicoderm) 14 mg TOPICAL DAILY@1000 [facility] Last Admin: 06/30/19 09:52 Dose: 14 mg Documented by: Ondansetron HCl (Zofran) 4 mg IV Q4HP PRN PRN Reason: Nausea And Vomiting Last Admin: 06/27/19 21:25 Dose: 4 mg Documented by: Ondansetron HCl (Zofran Odt) 4 mg SL Q4-6HP PRN; Protocol PRN Reason: Nausea And Vomiting Polyethylene Glycol (Miralax) 17 gm PO DAILYP PRN PRN Reason: Constipation Potassium Chloride (Klor-Con) 40 meq PO DAILYP PRN PRN Reason: K+ < 3.5 Potassium Chloride (Potassium Chloride) 15 meq PO BIDCC [facility] Last Admin: 06/30/19 09:51 Dose: 15 meq Documented by: Senna/Docusate Sodium (Senna Plus Tablet) 1 tab PO HS [facility] Last Admin: 06/29/19 19:54 Dose: 1 tab Documented by: Sodium Chloride (Saline Flush) 10 ml IV Q8 [facility] Last Admin: 06/30/19 05:09 Dose: Not Given Documented by: Thiamine HCl (Vitamin B1) 100 mg PO DAILY [facility] Last Admin: 06/30/19 09:53 Dose: 100 mg Documented by: Medical - PN: A/P - Time Spent With Patient Total time spent is greater than 50% in coordination of care (as documented) at patient's floor/unit and/or counseling patient: - Narrative A/P Narrative: A: *Alcohol withdrawal/alcohol abuse/DT's: Improved *ETOH liver dz: With thrombocytopenia *Acute encephalopathy: Improved *Volume depletion: Improved *UTI: *Failure to thrive at home/generalized weakness/deconditioning/debility: *Protein calorie malnutrition: *Macrocytic anemia, chronic: *h/o PUD: *tobacco abuse Plan: -oral Librium/alcohol. CIWA monitoring -repeat UA -Nutrition support//dietary consult/electrolyte replacement/thiamine -PT/OT -Smoking cessation counseling -Alcohol cessation counseling -Discharge planning per case management -ppx: Heparin/home ppi Medical - PN: Qual - VTE Deep Vein Thrombosis/Pulmonary Embolism Present on Admission: No
[2019-06-30] MEDS: SENNOSIDES/DOCUSATE SODIUM 1 TAB TABLET PO SCH (21:23)
[2019-07-01] MEDS: 0.9 % SODIUM CHLORIDE 10 ML SYRINGE IV SCH ×2 (04:20→19:29)
[2019-07-01 06:13] LABS: Appearance,Urine CLEAR; Bacteria,Urine 0 /hpf (0); Bilirubin,Urine NEG (NEG); Color,Urine STRAW; Culture Indicated,Urine NO; Glucose,Urine (UA) NEGATIVE (NEG); Ketones,Urine NEG (NEG); Leukocyte Esterase,Urine NEG /uL (NEG); Mucus,Urine FEW /hpf (0); Nitrate,Urine NEG (NEG); Protein,Urine NEG (NEG); Specific Gravity,Urine 1.006 (1.000-1.035); Urine Blood NEG mg/dL (<0.03); Urine RBC 0 /hpf (0-1); Urine Squamous Epithelial Cell 1 /hpf (0-4); Urine WBC 0 /hpf (0-4); Urobilinogen,Urine NEG (NEG)
--- NOTE | 2019-07-01 09:02 | Internal Med Progress Note ---
Medical - PN: Subj Patient information: Note initiated : 07/01/19 at 9:00 am Service Date, if different from initiated Date: [] Patient: Do Cantu a 59 y/o F admitted on 06/23/19 for weakness. Chief Complaint: [] Interval history: Ms. Cantu is a 59 year old F with a history of chronic alcoholism drinking upto a 5th of whisky presents to the ER with increasing nausea and abdominal discomfort over the last few days worsening in the last 2 4 hours, No associated bloody emesis, she also has associated loss of appetite and has been unable to eat or drink in the last 48 hours. She also had an episode of diarrhea and vomiting. She denies associated chest pain, weight loss, fever, headache, ligh theadedness, chest palpitation. Initial workup in the ER was consistent with UTI with urine dip. UA is pending. Also potassium at 2.9 magnesium 1 and was started on replacement. She received 2 L of crystalloids, 1 g Rocephin, Zofran and Reglan. Initial CIWA score 6. Subsequently hospitalist service was consulted for admission. She was also noted to have multiple episodes of diarrhea. She became incontinent. She was extremely weak At the time evaluation patient is lethargic but able to answer most of the questions. She appears anxious but no signs of tremors or hallucination. She i s mild tachycardia she denies changes in medications, she lives alone and does not have any family support except for a friend who visits her intermittently. She has been surviving on canned foods. She denies recent falls or injuries but endorses to generalized aches and weight pains. 06/23 -patient in [place] DTs despite oral alcohol. Discontinue alcohol and start CIWA protocol. Elevated lactate. Continue supportive management with crystalloids/IV MVI. Low magnesium and potassium on replacement. Mild cystitis, diarrhea improved. DC antibiotic coverage. 06/24-her delirium is slightly improved, continuing IV fluid hydration and CIWA protocol she was drowsy this morning, urine culture positive for coagulase- negative staph-we will start her on vancomycin 06/25-her delirium almost resolved She is alert but very tired following dose of Librium Discontinued vancomycin as the culture seems to be contaminant, will discontinue the CIWA protocol Will avoid any benzodiazepines Patient need placement, case management involved 06/26 -she is alert oriented today But appears to be tired We will discontinue all the benzodiazepines Discontinue antibiotics Physical therapy evaluation and patient need placement and case management on board 06/27-patient remains alert and oriented She is uncooperative, we discontinued benzodiazepines, discontinued antibiotics, physical therapy recommended rehab but patient waiting for insurance approval and case management and social service working. I do not think the patient will be safe to go home she is very 06/28 Today she does not have any new complaints. Vital signs are stable. When I asked her, " do you have any family". She was angry No overnight events 06/29 Today she feels fine and does not have any new complaints. Vital signs are stable. No overnight events 06/30 She feels fine and does not have any new complaints. Denies n/v/dizziness. Vital signs are stable. No overnight events 07/01 Slept fine. No new complaints overnight events. Review of Systems: denies headache/fever/chills/nausea/vomiting/chest or abdominal pain/cough/dyspnea/diarrhea. Otherwise see above. - Constitutional Vitals: Vital Signs Temp Pulse Resp BP Pulse Ox 97.7 F 95 H 20 116/77 100 07/01/19 04:13 07/01/19 04:13 07/01/19 04:13 07/01/19 04:13 07/01/19 04:13 Period Temp Pulse Resp BP Sys/Manning Pulse Ox Last 24 Hr 97.7 F-98.5 F 88-106 18- 113-137/77-80 96-100 Intake and Output 06/30/19 07/01/19 07/01/19 21:59 05:59 13:59 Intake Total 240 440 Output Total 825 600 Balance -585 -160 Weight 51.392 kg Intake & Output: Intake & Output 06/30/19 07/01/19 07/01/19 21:59 05:59 13:59 Intake Total 240 440 Output Total 825 600 Balance -585 -160 Weight 51.392 kg Intake: Oral 240 440 Output: Urine Catheter Amount 300 Void Amount 525 600 Other: Meal Dinner Percent of Meal Consumed 75% Feeding Ability Independent Urine Appearance Clear Clear Urine Color Bright Yellow Bright Yellow Urine Odor Normal Strong Stool Size Small Stool Color Brown Stool Consistency Soft Formed # Bowel Movements 1 Exam: General: Alert, Awake, No acute Distress Eyes/N/T: EOMI, Head/Neck: neck supple, CV: RRR, No murmurs, Pulm: Clear b/l, no wheezing/rhonchi/rales Abd: soft, nontender, +BS x4 Ext: no clubbing/cyanosis/edema Neuro: Alert, no focal deficits, moves all extremities, Skin: warm/dry Medical - PN: Obj Da - Labs CBC & Chem 7: 06/30/19 04:49 06/30/19 04:49 Labs: Abnormal Lab Results 06/30/19 06/30/19 06/29/19 04:49 04:49 07:58 RBC 2.62 L Hgb 9.3 L Hct 28.4 L MCV 108.1 H MCH 35.4 H RDW 16.6 H [place] % (Auto) 12.4 H Carbon Dioxide 21 L Total Protein 5.5 L Albumin 2.7 L 3.1 L 06/29/19 07:58 RBC 2.97 L Hgb 10.4 L Hct 31.8 L MCV 107.1 H MCH 35.1 H RDW 15.9 H [place] % (Auto) Carbon Dioxide Total Protein Albumin Meds: Medications Acetaminophen (Tylenol) 650 mg PO Q4-6HP PRN; Protocol PRN Reason: Per Pain Protocol/Fever > 101 Last Admin: 06/27/19 04:42 Dose: 650 mg Documented by: Hydrocodone Bitart/Acetaminophen ([place] 5/325mg) 1 tab PO Q4HP PRN PRN Reason: PAIN LEVEL 3-6 Last Admin: 06/30/19 21:23 Dose: 1 tab Documented by: Bisacodyl (Dulcolax) 10 mg [place] Q2-3DAYS PRN PRN Reason: Constipation Docusate Sodium (Colace) 100 mg PO BID [facility] Last Admin: 06/30/19 21:23 Dose: 100 mg Documented by: Folic Acid (Folic Acid) 1 mg PO DAILY [facility] Last Admin: 06/30/19 09:53 Dose: 1 mg Documented by: Heparin Sodium (Porcine) (Heparin) 5,000 unit SQ Q12 [facility] Last Admin: 06/30/19 21:23 Dose: 5,000 unit Documented by: Potassium Chloride 40 meq/ (Dextrose) 520 mls @ 130 mls/hr IV UD PRN PRN Reason: K+ = or < 3.5 Magnesium Sulfate (Magnesium Sulfate) 2 gm in 50 mls @ 50 mls/hr IV UD PRN PRN Reason: MG = or < 1.7 Last Infusion: 06/28/19 06:00 Dose: Infused Documented by: Acetaminophen (Ofirmev) 650 mg in 65 mls @ 130 mls/hr IV Q6HP PRN; Protocol PRN Reason: Per Pain Protocol/Fever > 101 Iron Carb/Multivit/[place]/Folic Acid (Multivitamin W/Minerals) 1 tab PO DAILY [facility] Last Admin: 06/30/19 09:53 Dose: 1 tab Documented by: Melatonin (Melatonin 3mg Tablet) 3 mg PO HSP PRN PRN Reason: Insomnia Last Admin: 06/28/19 22:18 Dose: 3 mg Documented by: Nicotine (Nicoderm) 14 mg TOPICAL DAILY@1000 [facility] Last Admin: 06/30/19 09:52 Dose: 14 mg Documented by: Ondansetron HCl (Zofran) 4 mg IV Q4HP PRN PRN Reason: Nausea And Vomiting Last Admin: 06/27/19 21:25 Dose: 4 mg Documented by: Ondansetron HCl (Zofran Odt) 4 mg SL Q4-6HP PRN; Protocol PRN Reason: Nausea And Vomiting Pantoprazole Sodium (Protonix) 40 mg PO QAMAC [place] Polyethylene Glycol (Miralax) 17 gm PO DAILYP PRN PRN Reason: Constipation Potassium Chloride (Klor-Con) 40 meq PO DAILYP PRN PRN Reason: K+ < 3.5 Potassium Chloride (Potassium Chloride) 15 meq PO BIDCC [facility] Last Admin: 06/30/19 18:41 Dose: 15 meq Documented by: Senna/Docusate Sodium (Senna Plus Tablet) 1 tab PO HS [facility] Last Admin: 06/30/19 21:23 Dose: 1 tab Documented by: Sodium Chloride (Saline Flush) 10 ml IV Q8 [facility] Last Admin: 07/01/19 04:20 Dose: Not Given Documented by: Thiamine HCl (Vitamin B1) 100 mg PO DAILY [facility] Last Admin: 06/30/19 09:53 Dose: 100 mg Documented by: Medical - PN: A/P - Time Spent With Patient Total time spent is greater than 50% in coordination of care (as documented) at patient's floor/unit and/or counseling patient: - Narrative A/P Narrative: A: *Alcohol withdrawal/alcohol abuse/DT's: Improved *ETOH liver dz: *Acute encephalopathy: Improved *Volume depletion: Improved *UTI: *Failure to thrive at home/generalized weakness/deconditioning/debility: *Protein calorie malnutrition: *Macrocytic anemia, chronic: *h/o PUD: *tobacco abuse Plan: -oral Librium/alcohol. CIWA monitoring -Nutrition support//dietary consult/electrolyte replacement/thiamine -PT/OT -Smoking cessation counseling -Alcohol cessation counseling -Discharge planning per case management -ppx: Heparin/home ppi Medical - PN: Qual - VTE Deep Vein Thrombosis/Pulmonary Embolism Present on Admission: No
[2019-07-01] MEDS: THIAMINE 100 MG TABLET PO SCH (10:52)
[2019-07-01] MEDS: FOLIC ACID 1 MG TABLET PO SCH (10:52)
[2019-07-01] MEDS: MULTIVIT,THER IRON,CA,FA & MIN 1 TABLET PO SCH (10:52)
[2019-07-01] MEDS: POTASSIUM CHLORIDE 20 MEQ/15 ML ML PO SCH ×2 (10:52→18:57)
[2019-07-01] MEDS: HEPARIN 5,000 UNIT/ML VIAL SQ SCH ×2 (10:52→19:58)
[2019-07-01] MEDS: DOCUSATE SODIUM 100 MG CAPSULE PO SCH ×2 (10:53→19:59)
[2019-07-01] MEDS: PANTOPRAZOLE 40 MG PACKET PO SCH (10:53)
[2019-07-01] MEDS: NICOTINE 14 MG PATCH TOPICAL SCH (10:54)
--- NOTE | 2019-07-01 12:39 | Discharge Summary ---
Medical - DS: Prov Patient information: Note initiated : 07/01/19 at 12:38 pm Service Date, if different from initiated Date: [] Patient: Do Cantu 59 y/o F admitted on 06/23/19 for weakness. Chief Complaint: [] Date of admission: 06/23/19 08:41 Discharge date: 07/02/19 Primary care physician: Nahum Munoz Consults: 06/22/19 Consult to Physician [CONS] Stat Comment: Consulting Provider: Alfred Chao Reason For Exam: Physician to Consult Medical - DS: Meds - Discharge Medications Active and Home Medications: Home Medications No Known Home Meds 06/23/19 [History Confirmed 06/23/19 Last Taken Unknown] Medical - DS: Hosp Hospital Course: Ms. Cantu is a 59 year old F with a history of chronic alcoholism drinking upto a 5th of whisky presents to the ER with increasing nausea and abdominal discomfort over the last few days worsening in the last 2 4 hours, No associated bloody emesis, she also has associated loss of appetite and has been unable to eat or drink in the last 48 hours. She also had an episode of diarrhea and vomiting. She denies associated chest pain, weight loss, fever, headache, lightheadedness, chest palpitation. Initial workup in the ER was consistent with UTI with urine dip. UA is pending. Also potassium at 2.9 magnesium 1 and was started on replacement. She received 2 L of crystalloids, 1 g Rocephin, Zofran and Reglan. Initial CIWA score 6. Subsequently hospitalist service was consulted for admission. She was also noted to have multiple episodes of diarrhea. She became incontinent. She was extremely weak At the time evaluation patient is lethargic but able to answer most of the questions. She appears anxious but no signs of tremors or hallucination. She is mild tachycardia she denies changes in medications, she lives alone and does not have any family support except for a friend who visits her intermittently. She has been surviving on canned foods. She denies recent falls or injuries but endorses to generalized aches and weight pains. 06/23 -patient in [place] DTs despite oral alcohol. Discontinue alcohol and start CIWA protocol. Elevated lactate. Continue supportive management with crystalloids/IV MVI. Low magnesium and potassium on replacement. Mild cystitis, diarrhea improved. DC antibiotic coverage. 06/24-her delirium is slightly improved, continuing IV fluid hydration and CIWA protocol she was drowsy this morning, urine culture positive for coagulase- negative staph-we will start her on vancomycin 06/25-her delirium almost resolved She is alert but very tired following dose of Librium Discontinued vancomycin as the culture seems to be contaminant, will discontinue the CIWA protocol Will avoid any benzodiazepines Patient need placement, case management involved 06/26 -she is alert oriented today But appears to be tired We will discontinue all the benzodiazepines Discontinue antibiotics Physical therapy evaluation and patient need placement and case management on board 06/27-patient remains alert and oriented She is uncooperative, we discontinued benzodiazepines, discontinued antibiotics, physical therapy recommended rehab but patient waiting for insurance approval and case management and social service working. I do not think the patient will be safe to go home she is very 06/28 Today she does not have any new complaints. Vital signs are stable. When I asked her, " do you have any family". She was angry No overnight events 06/29 Today she feels fine and does not have any new complaints. Vital signs are stable. No overnight events 06/30 She feels fine and does not have any new complaints. Denies n/v/dizziness. Vital signs are stable. No overnight events 07/01 Slept fine. No new complaints overnight events. 07/02 No new complaints overnight events. Awaiting placement. Patient refusing rehab or even home health assistance. Patient very high risk for readmission given comorbidities including continued alcohol abuse and multiple hospitalizations. Discharge diagnosis: Alcohol withdrawal and alcohol abuse liver disease encephalopathy Secondary discharge diagnosis: Volume depletion UTI failure to thrive at home deconditioning debility malnutrition anemia tobacco abuse - Time Spent with Patient Total time spent providing and/or coordinating discharge services: Greater than 30 minutes Medical - DS: Exam - Constitutional Vitals: Vital Signs Temp Pulse Resp BP BP Pulse Ox 07/01/19 08:00 97.9 F 90 20 120/75 99 07/01/19 04:13 97.7 F 95 H 20 116/77 100 06/30/19 22:44 98.0 F 104 H 20 123/77 97 06/30/19 19:22 98.5 F 106 H 20 137/78 97 06/30/19 16:00 97.9 F 102 H 18 113/78 97 Intake and Output 06/30/19 07/01/19 07/01/19 21:59 05:59 13:59 Intake Total 240 440 Output Total 825 600 Balance -585 -160 Intake: Oral 240 440 Output: Urine Catheter Amount 300 Void Amount 525 600 Other: Meal Dinner Percent of Meal Consumed 75% Feeding Ability Independent Urine Appearance Clear Clear Urine Color Bright Yellow Bright Yellow Urine Odor Normal Strong Stool Size Small Stool Color Brown Stool Consistency Soft Formed # Bowel Movements 1 Weight 51.392 kg Medical - DS: Data Labs on day of discharge: Labs from last 24 hours 07/01/19 04:30 Urine Color Straw Urine Appearance Clear Urine pH 7.0 Ur Specific [place] 1.006 Urine Protein Neg Urine Glucose (UA) Negative Urine Ketones Neg Urine Occult Blood Neg Urine Nitrate Neg Urine Bilirubin Neg Urine Urobilinogen Neg Ur Leukocyte Esterase Neg Urine RBC 0 Urine WBC 0 Ur Squamous Epith Cells 1 Urine Bacteria 0 Urine Mucus Few Ur Culture Indicated? No Medical - DS: A/P - Patient/Caregiver Discharge Instructions Activity: as per physical therapy Diet: Regular Diet - Follow up Plan Follow up with: Nahum Munoz PA-C [Primary Care Provider] - Disposition: Xfer SNF Prognosis: Undetermined Rehab Potential: Fair I certify that the patient requires SNF services: Yes Overall status at discharge: patient is back to baseline Medical - DS: Qual - VTE Deep Vein Thrombosis/Pulmonary Embolism Present on Admission: No
[2019-07-01] MEDS: SENNOSIDES/DOCUSATE SODIUM 1 TAB TABLET PO SCH (19:59)
[2019-07-01] MEDS: HYDROcodone/APAP 5/325MG TABLET PO PRN (19:59)
[2019-07-01] MEDS: MELATONIN 3 MG TABLET PO PRN (23:12)
[2019-07-02] MEDS: 0.9 % SODIUM CHLORIDE 10 ML SYRINGE IV SCH ×2 (00:16→04:15)
[2019-07-02] MEDS: PANTOPRAZOLE 40 MG PACKET PO SCH (07:33)
--- NOTE | 2019-07-02 07:59 | Internal Med Progress Note ---
Medical - PN: Subj Patient information: Note initiated : 07/02/19 at 7:58 am Service Date, if different from initiated Date: [] Patient: Do Cantu a 59 y/o F admitted on 06/23/19 for weakness. Chief Complaint: [] Interval history: Ms. Cantu is a 59 year old F with a history of chronic alcoholism drinking upto a 5th of whisky presents to the ER with increasing nausea and abdominal discomfort over the last few days worsening in the last 2 4 hours, No associated bloody emesis, she also has associated loss of appetite and has been unable to eat or drink in the last 48 hours. She also had an episode of diarrhea and vomiting. She denies associated chest pain, weight loss, fever, headache, ligh theadedness, chest palpitation. Initial workup in the ER was consistent with UTI with urine dip. UA is pending. Also potassium at 2.9 magnesium 1 and was started on replacement. She received 2 L of crystalloids, 1 g Rocephin, Zofran and Reglan. Initial CIWA score 6. Subsequently hospitalist service was consulted for admission. She was also noted to have multiple episodes of diarrhea. She became incontinent. She was extremely weak At the time evaluation patient is lethargic but able to answer most of the questions. She appears anxious but no signs of tremors or hallucination. She i s mild tachycardia she denies changes in medications, she lives alone and does not have any family support except for a friend who visits her intermittently. She has been surviving on canned foods. She denies recent falls or injuries but endorses to generalized aches and weight pains. 06/23 -patient in [place] DTs despite oral alcohol. Discontinue alcohol and start CIWA protocol. Elevated lactate. Continue supportive management with crystalloids/IV MVI. Low magnesium and potassium on replacement. Mild cystitis, diarrhea improved. DC antibiotic coverage. 06/24-her delirium is slightly improved, continuing IV fluid hydration and CIWA protocol she was drowsy this morning, urine culture positive for coagulase- negative staph-we will start her on vancomycin 06/25-her delirium almost resolved She is alert but very tired following dose of Librium Discontinued vancomycin as the culture seems to be contaminant, will discontinue the CIWA protocol Will avoid any benzodiazepines Patient need placement, case management involved 06/26 -she is alert oriented today But appears to be tired We will discontinue all the benzodiazepines Discontinue antibiotics Physical therapy evaluation and patient need placement and case management on board 06/27-patient remains alert and oriented She is uncooperative, we discontinued benzodiazepines, discontinued antibiotics, physical therapy recommended rehab but patient waiting for insurance approval and case management and social service working. I do not think the patient will be safe to go home she is very 06/28 Today she does not have any new complaints. Vital signs are stable. When I asked her, " do you have any family". She was angry No overnight events 06/29 Today she feels fine and does not have any new complaints. Vital signs are stable. No overnight events 06/30 She feels fine and does not have any new complaints. Denies n/v/dizziness. Vital signs are stable. No overnight events 07/01 Slept fine. No new complaints overnight events. 07/02 No new complaints overnight events. Awaiting placement. Review of Systems: denies headache/fever/chills/nausea/vomiting/chest or abdominal pain/cough/dyspnea/diarrhea. Otherwise see above. - Constitutional Vitals: Vital Signs Temp Pulse Resp BP Pulse Ox 97.9 F 91 H 20 131/83 97 07/01/19 23:10 07/01/19 23:10 07/02/19 04:52 07/01/19 23:10 07/01/19 23:10 Period Temp Pulse Resp BP Sys/[place] Pulse Ox Last 24 Hr 97.9 F-98.2 F 81-96 20-20 116-133/71-83 95-99 Intake and Output 07/01/19 07/02/19 07/02/19 21:59 05:59 13:59 Intake Total 480 1015 850 Output Total 800 650 400 Balance -320 365 450 Weight 51.619 kg Intake & Output: Intake & Output 07/01/19 07/02/19 07/02/19 21:59 05:59 13:59 Intake Total 480 1015 850 Output Total 800 650 400 Balance -320 365 450 Weight 51.619 kg Intake: Nourishment/Supplement quantity 240 (ml) Oral 480 1015 610 Output: Void Amount 800 650 400 Other: Meal Box of dry ceral Tomato soup Nourishment/Supplement Percent of Meal Consumed 100% 100% Feeding Ability Independent Nourishment/Supplement name Ensure Enlive Urine Appearance Clear Urine Color Bright Yellow Bright Yellow Urine Odor Normal Stool Size Moderate Stool Color Brown Stool Consistency Formed # Bowel Movements 1 Exam: General: Alert, Awake, No acute Distress Eyes/N/T: EOMI, Head/Neck: neck supple, CV: RRR, No murmurs, Pulm: Clear b/l, no wheezing/rhonchi/rales Abd: soft, nontender, +BS x4 Ext: no clubbing/cyanosis/edema Neuro: Alert, no focal deficits, moves all extremities, Skin: warm/dry Medical - PN: Obj Da - Labs CBC & Chem 7: 06/30/19 04:49 06/30/19 04:49 Labs: Abnormal Lab Results 06/30/19 06/30/19 06/29/19 04:49 04:49 07:58 RBC 2.62 L Hgb 9.3 L Hct 28.4 L MCV 108.1 H MCH 35.4 H RDW 16.6 H [place] % (Auto) 12.4 H Carbon Dioxide 21 L Total Protein 5.5 L Albumin 2.7 L 3.1 L 06/29/19 07:58 RBC 2.97 L Hgb 10.4 L Hct 31.8 L MCV 107.1 H MCH 35.1 H RDW 15.9 H [place] % (Auto) Carbon Dioxide Total Protein Albumin Meds: Medications Acetaminophen (Tylenol) 650 mg PO Q4-6HP PRN; Protocol PRN Reason: Per Pain Protocol/Fever > 101 Last Admin: 06/27/19 04:42 Dose: 650 mg Documented by: Hydrocodone Bitart/Acetaminophen ([place] 5/325mg) 1 tab PO Q4HP PRN PRN Reason: PAIN LEVEL 3-6 Last Admin: 07/01/19 19:59 Dose: 1 tab Documented by: Bisacodyl (Dulcolax) 10 mg MO Q2-3DAYS PRN PRN Reason: Constipation Docusate Sodium (Colace) 100 mg PO BID [facility] Last Admin: 07/01/19 19:59 Dose: Not Given Documented by: Folic Acid (Folic Acid) 1 mg PO DAILY [facility] Last Admin: 07/01/19 10:52 Dose: 1 mg Documented by: Heparin Sodium (Porcine) (Heparin) 5,000 unit SQ Q12 [facility] Last Admin: 07/01/19 19:58 Dose: 5,000 unit Documented by: Potassium Chloride 40 meq/ (Dextrose) 520 mls @ 130 mls/hr IV UD PRN PRN Reason: K+ = or < 3.5 Magnesium Sulfate (Magnesium Sulfate) 2 gm in 50 mls @ 50 mls/hr IV UD PRN PRN Reason: MG = or < 1.7 Last Infusion: 06/28/19 06:00 Dose: Infused Documented by: Acetaminophen (Ofirmev) 650 mg in 65 mls @ 130 mls/hr IV Q6HP PRN; Protocol PRN Reason: Per Pain Protocol/Fever > 101 Iron Carb/Multivit/Jenkins/Folic Acid (Multivitamin W/Minerals) 1 tab PO DAILY [facility] Last Admin: 07/01/19 10:52 Dose: 1 tab Documented by: Melatonin (Melatonin 3mg Tablet) 3 mg PO HSP PRN PRN Reason: Insomnia Last Admin: 07/01/19 23:12 Dose: 3 mg Documented by: Nicotine (Nicoderm) 14 mg TOPICAL DAILY@1000 [place] Last Admin: 07/01/19 10:54 Dose: 14 mg Documented by: Ondansetron HCl (Zofran) 4 mg IV Q4HP PRN PRN Reason: Nausea And Vomiting Last Admin: 06/27/19 21:25 Dose: 4 mg Documented by: Ondansetron HCl (Zofran Odt) 4 mg SL Q4-6HP PRN; Protocol PRN Reason: Nausea And Vomiting Pantoprazole Sodium (Protonix) 40 mg PO QAMAC [facility] Last Admin: 07/02/19 07:33 Dose: 40 mg Documented by: Polyethylene Glycol (Miralax) 17 gm PO DAILYP PRN PRN Reason: Constipation Potassium Chloride (Klor-Con) 40 meq PO DAILYP PRN PRN Reason: K+ < 3.5 Potassium Chloride (Potassium Chloride) 15 meq PO BIDCC [facility] Last Admin: 07/01/19 18:57 Dose: 15 meq Documented by: Senna/Docusate Sodium (Senna Plus Tablet) 1 tab PO HS [facility] Last Admin: 07/01/19 19:59 Dose: Not Given Documented by: Sodium Chloride (Saline Flush) 10 ml IV Q8 [facility] Last Admin: 07/02/19 04:15 Dose: Not Given Documented by: Thiamine HCl (Vitamin B1) 100 mg PO DAILY [facility] Last Admin: 07/01/19 10:52 Dose: 100 mg Documented by: Medical - PN: A/P - Time Spent With Patient Total time spent is greater than 50% in coordination of care (as documented) at patient's floor/unit and/or counseling patient: - Narrative A/P Narrative: A: *Alcohol withdrawal/alcohol abuse/DT's: Improved *ETOH liver dz: *Acute encephalopathy: Improved *Volume depletion: Improved *UTI: *Failure to thrive at home/generalized weakness/deconditioning/debility: *Protein calorie malnutrition: *Macrocytic anemia, chronic: *h/o PUD: *tobacco abuse Plan: -oral Librium/alcohol. CIWA monitoring -Nutrition support//dietary consult/electrolyte replacement/thiamine -PT/OT -Smoking cessation counseling -Alcohol cessation counseling -Discharge planning per case management -ppx: Heparin/home ppi Medical - PN: Qual - VTE Deep Vein Thrombosis/Pulmonary Embolism Present on Admission: No
[2019-07-02] MEDS: MULTIVIT,THER IRON,CA,FA & MIN 1 TABLET PO SCH (08:57)
[2019-07-02] MEDS: POTASSIUM CHLORIDE 20 MEQ/15 ML ML PO SCH (08:57)
[2019-07-02] MEDS: THIAMINE 100 MG TABLET PO SCH (08:57)
[2019-07-02] MEDS: DOCUSATE SODIUM 100 MG CAPSULE PO SCH (08:57)
[2019-07-02] MEDS: HEPARIN 5,000 UNIT/ML VIAL SQ SCH (08:57)
[2019-07-02] MEDS: FOLIC ACID 1 MG TABLET PO SCH (08:58)
[2019-07-02] MEDS: NICOTINE 14 MG PATCH TOPICAL SCH (10:32)
== END 2019-07-02 13:30 | DRG 896 ==
LOC: ED 00:07 → ICU 00:07 → MEDSUR 06-28 20:14
PROVIDERS: ADMIT Internal Medicine; ATTEND Internal Medicine

== ENCOUNTER 2019-08-03 12:45 | Inpatient (IN) ==
[2019-08-03] MEDS ORDERED: IOPAMIDOL 100 ML BOTTLE IV ONE (12:46)
--- NOTE | 2019-08-03 13:12 | XRay Report ---
CLINICAL INFORMATION: fall, left humerus pain COMPARISON: None. FINDINGS: The minimally comminuted transverse nondisplaced fracture of the surgical neck of humerus. Mild degenerative change seen acromioclavicular and glenohumeral joints. IMPRESSION: Nondisplaced transverse fracture - surgical neck of the proximal humerus Interpreted and Authenticated by: Hemanth Mccabe 08/03/19
[2019-08-03] MEDS ORDERED: 0.9 % SODIUM CHLORIDE 1,000 ML IV ONE ×3 (13:35→19:47)
[2019-08-03 14:01] LABS: POC Blood Urea Nitrogen 11 mg/dl (6-20); POC CO2 22 mmol/L (22-30); POC Calcium, Ionized 1.09 mmol/L (1.16-1.32); POC Chloride 103 mmol/L (96-108); POC Creatinine 0.5 mg/dl (0.6-1.1); POC Glucose, Random 127 mg/dL (70-105); POC Potassium 3.5 mmol/L (3.3-5.1); POC Sodium 138 mmol/L (133-145)
--- NOTE | 2019-08-03 14:25 | XRay Report ---
CLINICAL INFORMATION: weakness COMPARISON: 05/01/2018 FINDINGS: Minimal patchy airspace disease left lateral base likely represent scarring or atelectasis. The remainder lungs are clear. Heart size, mediastinum and pulmonary vessels are normal. IMPRESSION: Minor patchy airspace disease left base more likely represents scarring or atelectasis and developing infiltrate Interpreted and Authenticated by: Hemanth Mccabe 08/03/19
[2019-08-03 14:32] LABS: Basophils # (Auto) 0.04 K/mcL (0.00-0.30); Basophils % (Auto) 0.5 % (0.0-2.0); Eosinophils # (Auto) 0 K/mcL (0.00-0.70); Eosinophils % (Auto) 0 % (0.0-7.0); Granulocytes % (Auto) 84.6 % (38.0-78.0); Hematocrit 27.7 % (34.1-44.9); Hemoglobin 9.1 g/dL (11.2-15.7); Lymphocytes # (Auto) 0.59 K/mcL (1.50-4.80); Mean Cell Volume 97.5 fL (80.0-100.0); Mean Corpuscular HGB Conc 32.9 g/dL (31.0-36.0); Mean Platelet Volume 9.8 fL (7.4-10.4); Monocytes # (Auto) 0.67 K/mcL (0.10-0.90); Monocytes % (Auto) 7.9 % (1.0-12.0); Platelet Count 214 K/mcL (140-440); RBC 2.84 M/mcL (3.59-5.38); Red Cell Distribution Width 17.2 % (11.5-14.5); WBC 8.4 K/mcL (4.50-11.00)
[2019-08-03 14:43] LABS: INR 0.9 (0.9-1.1); Prothrombin Time 12.4 sec (11.9-14.5)
[2019-08-03 14:54] LABS: ALT/SGPT 18 U/l (0-40); AST/SGOT 49 U/l (0-37); Albumin 3.3 gm/dL (3.2-5.2); Alkaline Phosphatase 117 U/L (39-117); Bilirubin,Total 0.6 mg/dL (0.0-1.0); Blood Urea Nitrogen 12 mg/dl (6-20); Calcium 9.1 mg/dl (8.6-10.4); Carbon Dioxide 19 mmol/L (22-30); Chloride 100 mmol/L (96-108); Globulin 3.3 gm/dL (2.2-3.7); Glomerular Filtration Rate 105; Glucose 128 mg/dL (70-105)
--- NOTE | 2019-08-03 14:56 | Cat Scan Report ---
CLINICAL INFORMATION: Trauma weakness COMPARISON: Brain MRI 02/09/2018 TECHNIQUE: 2.5 mm helical slices were obtained in the skull base to vertex. Following reconstruction, axial reformatted images were reviewed at bone and parenchymal windows. The exam was performed using radiation dose optimization techniques including, but not limited to, automated exposure control, adjustment of the mA and/or kV according to patient size and use of iterative reconstruction technique. FINDINGS: The ventricles, sulci, fissures, and cisterns are symmetrically enlarged compatible with moderate age-related atrophy - more than established for this age group. There is no subdural hemorrhage or extra-axial fluid collections or mass appreciated. Minimal patchy chronic ischemic changes in the deep cerebral white matter appreciated. There is no intracerebral hemorrhage, mass effect, edema or other acute finding. Bone windows show no fracture or other osseous abnormality. There is opacification of 2-3 posterior left mastoid air cells IMPRESSION: Moderate atrophy is more than expected for age. Mild patchy chronic ischemic changes in the cerebral white matter. No intracerebral hemorrhage or other acute finding Mild left mastoiditis. No change Interpreted and Authenticated by: Hemanth Mccabe 08/03/19
[2019-08-03] MEDS ORDERED: MAGNESIUM SULFATE 2 GM/50 ML BAG IV ONE (15:01)
--- NOTE | 2019-08-03 16:30 | Emergency Department Note ---
General Adult HPI - General Chief complaint: Extremity Injury, Upper Stated complaint: Left shoulder and upper arm pain Time Seen by Provider: 08/03/19 13:04 Source: patient, EMS Mode of arrival: EMS Limitations: no limitations - History of Present Illness HPI Narrative: 59-year-old female who has fallen 4 times in the last week-fell this morning around 1000. She does not know why she fell but she did lose consciousness. Her left shoulder hurts now and she is got bruising over that area. EMS gave 50 mcg fentanyl IV / 50 mcg intranasal in field. She is not on a blood thinner but she does report drinking alcohol daily at least several drinks-she has a history of alcohol abuse - Related Data Home Medications Medication Instructions Recorded Confirmed No Known Home Meds 06/23/19 08/03/19 Allergies Allergy/AdvReac Type Severity Reaction Status Date / Time clarithromycin [From Biaxin] AdvReac Mild Vomiting Verified 08/03/19 12:46 Review of Systems All systems ED: reviewed and negative except as stated. Past Medical History - Past Medical History Attestation: Yes: The following information was validated with the patient. PMFSH Narrative: Family History (Last Updated 02/09/18 @ 19:39 by Angela Mora MD) Mother Stroke Medical History (Last Updated 02/09/18 @ 20:06 by Angela Mora MD) Alcohol abuse (Acute) Pneumonia (Acute) Alcoholic hepatitis without ascites (Acute) Diastolic dysfunction (Acute) Frequent falls (Acute) GERD (gastroesophageal reflux disease) (Acute) Hypokalemia (Acute) Hypomagnesemia (Acute) Hyponatremia (Acute) Malnutrition (Acute) Normocytic anemia (Acute) Osteoarthritis (Acute) Peptic ulcer disease (Acute) Ribs, multiple fractures (Acute) Past Surgical History (Last Updated 02/09/18 @ 20:01 by Angela Mora MD) H/O knee surgery (Acute) H/O tubal ligation (Acute) Medical history: Reports: CHF, GERD, renal disease, other (malnutrition, failure to thrive, ETOH abuse, anemia, electrolyte imbalance,rhabdo,falls, PNA) Psychiatric history: Reports: anxiety, depression Surgical history ED: Reports: orthopedic, other (knee), tubal ligation - Social History smoking status: Current every day smoker Alcohol use: Reports: Daily, Heavy Drug use: Reports: none Physical Exam Ill-appearing thin female no acute distress. She does have abrasions across her chin and nose-no lacerations requiring repair. Conjunctive are clear sclera white nonicteric. Pupils are equal and reactive. No nasal discharge or congestion. Oropharynx is pink and moist. I do not see any perioral trauma. Neck is supple without lymphadenopathy thyromegaly or carotid bruit. Heart is regular rate and rhythm no murmur appreciated. Lungs are clear to auscultation bilaterally without wheezes rales rhonchi or respiratory distress. Abdomen is soft nontender nondistended. Her left arm does show significant bruising all ov er the shoulder and the upper part of the humerus. Is not wanting to move it much secondary to pain. She can move her hands and fingers normally however. No pedal edema. Alert oriented Limitations: no limitations Course Vital Signs Temperature 98.4 F 08/03/19 12:46 Pulse Rate 107 H 08/03/19 12:46 Respiratory Rate 20 08/03/19 12:46 Blood Pressure 131/67 08/03/19 12:46 Pulse Oximetry (%) 97 08/03/19 12:46 Temperature 100.0 F H 08/03/19 18:17 Pulse Rate 78 08/03/19 13:48 Respiratory Rate 18 08/03/19 18:17 Blood Pressure 116/61 08/03/19 18:17 Pulse Oximetry (%) 93 08/03/19 18:17 Medical Decision Making - Lab Data Lab results reviewed: Yes I reviewed the patient's lab results. Result diagrams: 08/03/19 13:54 08/03/19 13:54 Lab Results 08/03/19 08/03/19 08/03/19 Range/Units 13:54 13:54 13:54 WBC 8.4 (4.50-11.00) K/mcL RBC 2.84 L (3.59-5.38) M/mcL Hgb 9.1 L (11.2-15.7) g/dL Hct 27.7 L (34.1-44.9) % POC Hct 27.0 L (36.0-48.0) % MCV 97.5 (80.0-100.0) fL MCH 32.0 (26.0-34.0) pg MCHC 32.9 (31.0-36.0) g/dL RDW 17.2 H (11.5-14.5) % Plt Count 214 (140-440) K/mcL MPV 9.8 (7.4-10.4) fL Gran % 84.6 H (38.0-78.0) % Lymph % (Auto) 7.0 L (15.5-49.0) % [place] % (Auto) 7.9 (1.0-12.0) % Eos % (Auto) 0 (0.0-7.0) % Baso % (Auto) 0.5 (0.0-2.0) % Gran # 7.14 (1.80-8.00) K/mcL Lymph # (Auto) 0.59 L (1.50-4.80) K/mcL [place] # (Auto) 0.67 (0.10-0.90) K/mcL Eos # (Auto) 0 (0.00-0.70) K/mcL Baso # (Auto) 0.04 (0.00-0.30) K/mcL PT (11.9-14.5) sec INR (0.9-1.1) VBG Lactic Acid 3.4 H (0.5-2.0) mmol/L POC Sodium 138 (133-145) mmol/L Sodium 141 (133-145) mmol/L POC Potassium 3.5 (3.3-5.1) mmol/L Potassium 3.7 (3.3-5.1) mmol/L POC Chloride 103 (96-108) mmol/L Chloride 100 (96-108) mmol/L Carbon Dioxide 19 L (22-30) mmol/L POC Total CO2 22 (22-30) mmol/L Anion Gap 22.0 H (8-16) POC BUN 11 (6-20) mg/dl BUN 12 (6-20) mg/dl Creatinine 0.5 L (0.6-1.1) mg/dl POC Creatinine 0.5 L (0.6-1.1) mg/dl GFR Calculation 105 Glucose 128 H (70-105) mg/dL POC Glucose 127 H (70-105) mg/dL Calcium 9.1 (8.6-10.4) mg/dl POC WB Ioniz Calcium 1.09 L (1.16-1.32) mmol/L Magnesium 1.2 L (1.6-2.5) mg/dL Total Bilirubin 0.6 (0.0-1.0) mg/dL AST 49 H (0-37) U/l ALT 18 (0-40) U/l Alkaline Phosphatase 117 (39-117) U/L Troponin T (0-0.03) ng/ml Total Protein 6.6 (5.9-8.4) gm/dL Albumin 3.3 (3.2-5.2) gm/dL Globulin 3.3 (2.2-3.7) gm/dL Albumin/Globulin Ratio 1.0 (1.0-2.3) Procalcitonin (<0.10) ng/mL 08/03/19 08/03/19 08/03/19 Range/Units 13:54 13:55 13:55 WBC (4.50-11.00) K/mcL RBC (3.59-5.38) M/mcL Hgb (11.2-15.7) g/dL Hct (34.1-44.9) % POC Hct (36.0-48.0) % MCV (80.0-100.0) fL MCH (26.0-34.0) pg MCHC (31.0-36.0) g/dL RDW (11.5-14.5) % Plt Count (140-440) K/mcL MPV (7.4-10.4) fL Gran % (38.0-78.0) % Lymph % (Auto) (15.5-49.0) % [place] % (Auto) (1.0-12.0) % Eos % (Auto) (0.0-7.0) % Baso % (Auto) (0.0-2.0) % Gran # (1.80-8.00) K/mcL Lymph # (Auto) (1.50-4.80) K/mcL [place] # (Auto) (0.10-0.90) K/mcL Eos # (Auto) (0.00-0.70) K/mcL Baso # (Auto) (0.00-0.30) K/mcL PT 12.4 (11.9-14.5) sec INR 0.9 (0.9-1.1) VBG Lactic Acid (0.5-2.0) mmol/L POC Sodium (133-145) mmol/L Sodium (133-145) mmol/L POC Potassium (3.3-5.1) mmol/L Potassium (3.3-5.1) mmol/L POC Chloride (96-108) mmol/L Chloride (96-108) mmol/L Carbon Dioxide (22-30) mmol/L POC Total CO2 (22-30) mmol/L Anion Gap (8-16) POC BUN (6-20) mg/dl BUN (6-20) mg/dl Creatinine (0.6-1.1) mg/dl POC Creatinine (0.6-1.1) mg/dl GFR Calculation Glucose (70-105) mg/dL POC Glucose (70-105) mg/dL Calcium (8.6-10.4) mg/dl POC WB Ioniz Calcium (1.16-1.32) mmol/L Magnesium (1.6-2.5) mg/dL Total Bilirubin (0.0-1.0) mg/dL AST (0-37) U/l ALT (0-40) U/l Alkaline Phosphatase (39-117) U/L Troponin T 0.03 (0-0.03) ng/ml Total Protein (5.9-8.4) gm/dL Albumin (3.2-5.2) gm/dL Globulin (2.2-3.7) gm/dL Albumin/Globulin Ratio (1.0-2.3) Procalcitonin 0.24 (<0.10) ng/mL 08/03/19 Range/Units 18:17 WBC (4.50-11.00) K/mcL RBC (3.59-5.38) M/mcL Hgb (11.2-15.7) g/dL Hct (34.1-44.9) % POC Hct (36.0-48.0) % MCV (80.0-100.0) fL MCH (26.0-34.0) pg MCHC (31.0-36.0) g/dL RDW (11.5-14.5) % Plt Count (140-440) K/mcL MPV (7.4-10.4) fL Gran % (38.0-78.0) % Lymph % (Auto) (15.5-49.0) % [place] % (Auto) (1.0-12.0) % Eos % (Auto) (0.0-7.0) % Baso % (Auto) (0.0-2.0) % Gran # (1.80-8.00) K/mcL Lymph # (Auto) (1.50-4.80) K/mcL [place] # (Auto) (0.10-0.90) K/mcL Eos # (Auto) (0.00-0.70) K/mcL Baso # (Auto) (0.00-0.30) K/mcL PT (11.9-14.5) sec INR (0.9-1.1) VBG Lactic Acid 1.5 (0.5-2.0) mmol/L POC Sodium (133-145) mmol/L Sodium (133-145) mmol/L POC Potassium (3.3-5.1) mmol/L Potassium (3.3-5.1) mmol/L POC Chloride (96-108) mmol/L Chloride (96-108) mmol/L Carbon Dioxide (22-30) mmol/L POC Total CO2 (22-30) mmol/L Anion Gap (8-16) POC BUN (6-20) mg/dl BUN (6-20) mg/dl Creatinine (0.6-1.1) mg/dl POC Creatinine (0.6-1.1) mg/dl GFR Calculation Glucose (70-105) mg/dL POC Glucose (70-105) mg/dL Calcium (8.6-10.4) mg/dl POC WB Ioniz Calcium (1.16-1.32) mmol/L Magnesium (1.6-2.5) mg/dL Total Bilirubin (0.0-1.0) mg/dL AST (0-37) U/l ALT (0-40) U/l Alkaline Phosphatase (39-117) U/L Troponin T (0-0.03) ng/ml Total Protein (5.9-8.4) gm/dL Albumin (3.2-5.2) gm/dL Globulin (2.2-3.7) gm/dL Albumin/Globulin Ratio (1.0-2.3) Procalcitonin (<0.10) ng/mL - Radiology Data Radiology results reviewed: Yes I reviewed the patient's radiology results. CT of the head shows no acute findings. Chest x-ray shows right lower lobe infiltrate. X-ray of the left shoulder shows a surgical neck fracture minimally displaced CT scan of the chest is ordered which shows no acute infiltrate-chest x-ray was likely just a shadow-however does show subacute pulmonary emboli subsegmental without evidence of right heart strain - EKG Data EKG #1 EKG attestation: Yes I reviewed and interpreted this EKG., Yes There are no EKG findings of acute coronary syndrome, Yes This EKG will be read by restaurant managing partner EKG results narrative: Sinus rhythm Disposition Pt seen by DAIRY PROCESSING EQUIPMENT OPERATOR/PA only: No Clinical Impression: Alcohol abuse, Hypomagnesemia, Abrasion, Ecchymosis Fall Qualifiers: Encounter type: initial encounter Qualified Code(s): W19.XXXA - Unspecified fall, initial encounter Left humeral fracture Qualifiers: Encounter type: initial encounter Humerus Location: surgical neck Fracture type: closed Fracture morphology: unspecified fracture morphology Fracture alignment: nondisplaced Qualified Code(s): S42.215A - Unspecified nondisplaced fracture of surgical neck of left humerus, initial encounter for closed fracture Pulmonary emboli Qualifiers: Pulmonary embolism type: multiple subsegmental (without acute cor pulmonale) Qualified Code(s): I26.94 - Multiple subsegmental pulmonary emboli without acute cor pulmonale Alcohol withdrawal syndrome Qualifiers: Complication of substance-induced condition: with unspecified complication Q ualified Code(s): F10.239 - Alcohol dependence with withdrawal, unspecified Summary: Patient initially already had fentanyl on board so we started IV fluids. Work- up ordered with imaging and laboratory Hypomagnesemia so we gave her mag rider Lactate was elevated but this is likely secondary to her alcohol usage. Chest x-ray shows right lower lobe infiltrate. Start blood cultures and given IV antibiotic X-ray shoulder showed humeral fracture. Shoulder immobilizer ordered She was starting to feel anxious and has known history of alcohol usage which she readily admits to. We will give her Ativan to help with both anxiety as well as alcohol withdrawal At this point, hospitalist reviewed the case and felt that we needed to repeat the lactic acid. This was ordered. Continued IV fluids and got a CT scan of the chest to further evaluate Ordered Stephaniequis for subacute pulmonary emboli on CT scan. Low-grade temperature elevation to 100.0 so we will order an influenza swab also She was getting agitated so we gave her some more Ativan. She cannot stand or walk so we will put a Alonso in. She is unable to go home I discussed case with Dr. Alcantara, hospitalist, who agreed except the patient further care and evaluation in the hospital. I also discussed case briefly with Dr. Laughlin orthopedist it security consulting director who felt that the patient did not require surgical intervention at this time and agreed with shoulder immobilizer. Available to see the patient but it was not necessary at this time Disposition: Xfer As Inpt ([facility]) Condition: Serious Referrals: Nahum Munoz PA-C [Primary Care Provider] -
[2019-08-03] MEDS ORDERED: PIPERACILLIN SODIUM/TAZOBACTAM 3.375 GM in DEXTROSE 5% IN WATER 50 ML IV ONE (16:39)
[2019-08-03] MEDS ORDERED: METHOCARBAMOL 750 MG TABLET PO ONE (16:39)
[2019-08-03] MEDS ORDERED: VANCOMYCIN 1,000 MG in 0.9 % SODIUM CHLORIDE 250 ML IV ONE (16:40)
[2019-08-03] MEDS ORDERED: LORazepam 1 MG TABLET PO ONE (16:41)
--- NOTE | 2019-08-03 18:23 | Cat Scan Report ---
CLINICAL INFORMATION: Left lower lobe infiltrate COMPARISON: Plain film 08/03/2019. TECHNIQUE: 80 cc of Isovue-370 were injected intravenously, and 25 seconds later, 0.625 mm helical slices were obtained from the lung apices through the bases. Following reconstruction, 2.5 mm sagittal, coronal and axial reformations were processed and reviewed at lung, mediastinal and bone windows. 7 mm axial MIPS were also obtained to optimize pulmonary nodule detection. The exam was performed using radiation dose optimization techniques including, but not limited to, automated exposure control, adjustment of the mA and/or kV according to patient size and use of iterative reconstruction technique. FINDINGS: Mediastinal windows show subocclusive emboli within the origins of the superior, anterior basilar, lateral basilar and posterior basilar segmental right lower lobe pulmonary arteries.. These are almost certainly chronic. Central pulmonary arteries are normal caliber: main pulmonary diameter is 26 mm - no evidence of pulmonary hypertension. The thoracic aorta is normal in diameter with scattered fibrofatty calcific plaque. Heart is normal size with very minimal scattered calcific plaque. The esophagus is grossly normal. There is no adenopathy in the mediastinal hilar or axillary regions. Pulmonary parenchymal windows show mild centrilobular emphysema featuring chronic bronchitis with elevated lung volumes and wall thickening of the bronchi and also multiple small bullae - predominantly upper lobes. There is mild scattered fibrotic changes in the right middle lobe, lingula and both peripheral lower lobes. There are no lorraine infiltrates. No effusions. Bone windows show degenerative changes in the midthoracic and lower thoracic spine. Images through the superior abdomen show marked fatty change and mild bilateral adrenal hyperplasia. IMPRESSION: 1. No evidence of pneumonia. There is moderate centrilobular emphysema and scattered fibrosis within the right middle lobe, lingula and posterior lower lobes. 2. Subocclusive, chronic appearing, emboli and in the right superior, anterior basilar, lateral basilar and posterior basilar segmental right lower lobe pulmonary arteries at their origin. There is no evidence of pulmonary hypertension or right heart strain. 3. Mild bilateral adrenal hyperplasia - stable since abdominal CT 1.5 years ago 01/16/2018 4. Marked fatty changes of the liver - also stable since 01/16/2018 Interpreted and Authenticated by: Hemanth Mccabe 08/03/19
[2019-08-03] MEDS ORDERED: APIXABAN 5 MG TABLET PO ONE (18:50)
[2019-08-03] MEDS ORDERED: LORazepam 2 MG/ML VIAL IV ONE (19:48)
--- NOTE | 2019-08-03 20:53 | Internal Med History&Physical ---
Medical - H&P: HPI Patient information: Note initiated : 08/03/19 at 8:50 pm Service Date, if different from initiated Date: [] Patient: Do Cantu a 59 y/o F admitted on for Left shoulder and upper arm pain. Chief Complaint: [] History of present illness: Ms. Cantu is a 59 year old F who fell around 10 AM this morning could not say why and woke up on the ground. Complaint of left humerus pain EMS was called patient brought into ED. History is obtained from chart as patient is a poor historian. Has a history of chronic alcoholism and likely suffers from dementia from this. She been admitted multiple times for alcohol withdrawal issues related to it. Work-up in ER revealed a nondisplaced spiral fracture of the surgical neck of left humerus. She had electrolyte abnormalities. She had incidentally found pulmonary emboli noted on CT. She is so weak she is unable to stand to get around in ED. She started having alcohol withdrawal in the ED as well. Review of Systems: Positive as above. Denies headache/fever/nausea/vomiting/chest or abdominal pain/cough/dyspnea. Remaining 10 point review of system reviewed negative Medical - H&P: PMH Medical history: Medical History (Last Updated 02/09/18 @ 20:06 by Angela Mora MD) Alcohol abuse (Acute) Pneumonia (Acute) Alcoholic hepatitis without ascites (Acute) Diastolic dysfunction (Acute) Frequent falls (Acute) GERD (gastroesophageal reflux disease) (Acute) Hypokalemia (Acute) Hypomagnesemia (Acute) Hyponatremia (Acute) Malnutrition (Acute) Normocytic anemia (Acute) Osteoarthritis (Acute) Peptic ulcer disease (Acute) Ribs, multiple fractures (Acute) Past Surgical History (Last Updated 02/09/18 @ 20:01 by Angela Mora MD) H/O knee surgery (Acute) H/O tubal ligation (Acute) Family History (Last Updated 02/09/18 @ 19:39 by Angela Mora MD) Mother Stroke Father had a stroke as well Social History Half pack per day of cigarettes daily Drinks alcohol daily. Last drink of whiskey last night. Lives alone. Ablates with a walker. Medical - H&P: Meds Home Medications Medication Instructions Recorded Confirmed Type No Known Home Meds 06/23/19 06/23/19 History Allergies Allergy/AdvReac Type Severity Reaction Status Date / Time clarithromycin [From Biaxin] AdvReac Mild Vomiting Verified 08/03/19 12:46 Medical - H&P: Exam - Constitutional Vitals: Temp Pulse Resp BP Pulse Ox 100.0 F H 78 18 116/61 93 08/03/19 18:17 08/03/19 13:48 08/03/19 18:17 08/03/19 18:17 08/03/19 18:17 Exam: General: Alert, Awake, No acute Distress Eyes/N/T: EOMI, PERRL, DMM Head/Neck: neck supple, normocephalic atraumatic CV: RRR, No murmurs, normal s1/s2 Pulm: Clear b/l, no wheezing/rhonchi/rales Abd: soft, nontender, +BS x4 Ext: no clubbing/cyanosis/edema Neuro: A&Ox2, slow to respond to q's and appears to have some confusion,no focal deficits, moves all extremities, , symmetrical 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, sensations intact b/l upper/lower Skin: warm/dry Medical - H&P: Reslt - Labs CBC & Chem 7: 08/03/19 13:54 08/03/19 13:54 Labs: Short CBC 08/03/19 Range/Units 13:54 WBC 8.4 (4.50-11.00) K/mcL Hgb 9.1 L (11.2-15.7) g/dL Hct 27.7 L (34.1-44.9) % Plt Count 214 (140-440) K/mcL BMP 08/03/19 13:54 Sodium 141 Potassium 3.7 Chloride 100 Carbon Dioxide 19 L BUN 12 Creatinine 0.5 L Glucose 128 H Calcium 9.1 Cardiac Enzymes 08/03/19 Range/Units 13:54 Troponin T 0.03 (0-0.03) ng/ml Liver Function 08/03/19 Range/Units 13:54 Total Bilirubin 0.6 (0.0-1.0) mg/dL AST 49 H (0-37) U/l ALT 18 (0-40) U/l Alkaline Phosphatase 117 (39-117) U/L Albumin 3.3 (3.2-5.2) gm/dL Medical - H&P: A/P - Narrative A/P Narrative: A: *Alcohol withdrawal/alcohol abuse/DT's: *ETOH liver dz: *Encephalopathy superimposed on underlying dementia: 2/2 above *Dementia, likely etoh related *Volume depletion: Lactic acidosis resolved with IVF *Incidental/Asymptomatic pulmonary emboli b/l noted on CT: *Electrolyte abnormality HypoMag/: *Failure to thrive at home/generalized weakness/deconditioning/debility: *Protein calorie malnutrition: *Macrocytic anemia, chronic: *h/o PUD: *tobacco abuse *Left Humerus nondisplaced spiral fracture of the surgical neck: Plan: -CIWA monitoring with prn benzodiazepines/folate/thiamine/MVI -Nutrition support/dietary consult -electrolyte replacement -Eliquis -pending UA -PT/OT -Smoking cessation counseling -Alcohol cessation counseling -continue shoulder immobilizer, f/u with Ortho outpatient -Discharge planning per case management, likely needs SNF for inability to care for self at home -ppx: eliquis/ppi
[2019-08-03 21:58] LABS: Appearance,Urine CLEAR; Bilirubin,Urine NEG (NEG); Color,Urine YELLOW; Glucose,Urine (UA) NEGATIVE (NEG); Ketones,Urine 20 mg/dL (NEG); Leukocyte Esterase,Urine NEG /uL (NEG); Nitrate,Urine NEG (NEG); Protein,Urine NEG (NEG); Specific Gravity,Urine 1.055 (1.000-1.035); Urine Blood NEG mg/dL (<0.03); Urobilinogen,Urine NEG (NEG)
[2019-08-03] MEDS: 0.9 % SODIUM CHLORIDE 10 ML SYRINGE IV SCH (22:00)
[2019-08-03] MEDS ORDERED: 0.9 % SODIUM CHLORIDE 1,000 ML IV SCH (22:03)
[2019-08-03] MEDS ORDERED: ONDANSETRON 4 MG/2 ML VIAL IV PRN (22:03)
[2019-08-03] MEDS ORDERED: SENNOSIDES 1 TABLET PO PRN (22:03)
[2019-08-03] MEDS ORDERED: 0.9 % SODIUM CHLORIDE 10 ML SYRINGE IV SCH (22:03)
[2019-08-03] MEDS ORDERED: POTASSIUM CHLORIDE 20 MEQ TABLET PO PRN ×2 (22:03)
[2019-08-03] MEDS ORDERED: POTASSIUM CHLORIDE 40 MEQ in DEXTROSE 5% IN WATER 500 ML IV PRN (22:03)
[2019-08-03] MEDS ORDERED: POLYETHYLENE GLYCOL 3350 17 GM PACKET PO PRN (22:03)
[2019-08-03] MEDS ORDERED: ACETAMINOPHEN 325 MG TABLET PO ONE (23:27)
[2019-08-03] MEDS: ACETAMINOPHEN 325 MG TABLET PO PRN (23:28)
[2019-08-04] MEDS ORDERED: LORazepam 2 MG/ML VIAL ONE (00:59)
[2019-08-04] MEDS ORDERED: IPRATROPIUM/ALBUTEROL 3 ML AMPUL.NEB NEB ONE (01:05)
[2019-08-04] MEDS: IPRATROPIUM/ALBUTEROL 3 ML AMPUL.NEB NEB SCH ×4 (01:25→19:15)
[2019-08-04] MEDS ORDERED: HYDROcodone/APAP 5/325MG TABLET PO ONE (01:33)
[2019-08-04] MEDS ORDERED: cloNIDine HCL 0.1 MG TABLET ONE (01:40)
[2019-08-04] MEDS ORDERED: chlordiazePOXIDE 25 MG CAPSULE PO ONE (04:50)
[2019-08-04] MEDS: 0.9 % SODIUM CHLORIDE 10 ML SYRINGE IV SCH ×4 (06:02→20:42)
[2019-08-04 06:54] LABS: Basophils # (Auto) 0.05 K/mcL (0.00-0.30); Basophils % (Auto) 0.7 % (0.0-2.0); Eosinophils # (Auto) 0.08 K/mcL (0.00-0.70); Eosinophils % (Auto) 1.2 % (0.0-7.0); Granulocytes % (Auto) 70.2 % (38.0-78.0); Hematocrit 23.9 % (34.1-44.9); Hemoglobin 7.5 g/dL (11.2-15.7); Lymphocytes # (Auto) 1.35 K/mcL (1.50-4.80); Lymphocytes % (Auto) 19.9 % (15.5-49.0); Mean Cell Volume 100.8 fL (80.0-100.0); Mean Corpuscular HGB Conc 31.4 g/dL (31.0-36.0); Mean Platelet Volume 10.1 fL (7.4-10.4); Monocytes # (Auto) 0.54 K/mcL (0.10-0.90); Platelet Count 186 K/mcL (140-440); RBC 2.37 M/mcL (3.59-5.38); Red Cell Distribution Width 17.5 % (11.5-14.5); WBC 6.8 K/mcL (4.50-11.00)
[2019-08-04 07:23] LABS: ALT/SGPT 14 U/l (0-40); AST/SGOT 36 U/l (0-37); Albumin 2.7 gm/dL (3.2-5.2); Albumin/Globulin Ratio 1.1 (1.0-2.3); Alkaline Phosphatase 92 U/L (39-117); Bilirubin,Direct < 0.2 mg/dL (0.0-0.3); Bilirubin,Total 0.4 mg/dL (0.0-1.0); Blood Urea Nitrogen 8 mg/dl (6-20); Calcium 8.3 mg/dl (8.6-10.4); Carbon Dioxide 23 mmol/L (22-30); Chloride 99 mmol/L (96-108); Globulin 2.5 gm/dL (2.2-3.7); Glomerular Filtration Rate 105; Glucose 89 mg/dL (70-105); Lactate Dehydrogenase 238 U/L (94-250); Phosphorous 2.5 mg/dL (2.7-4.5); Triglycerides 63 mg/dl (<150); Uric Acid 4.7 mg/dL (2.5-8.0)
[2019-08-04] MEDS ORDERED: POTASSIUM CHLORIDE 20 MEQ TABLET PO ONE (08:37)
[2019-08-04] MEDS ORDERED: MAGNESIUM SULFATE 8.12 MEQ in DEXTROSE 5% IN WATER 50 ML IV ONE (08:38)
--- NOTE | 2019-08-04 08:39 | Internal Med Progress Note ---
Medical - PN: Subj Patient information: Note initiated : 08/04/19 at 8:35 am Service Date, if different from initiated Date: [] Patient: Do Cantu a 59 y/o F admitted on 08/03/19 for Left shoulder and upper arm pain. Chief Complaint: [] Interval history: Ms. Cantu is a 59 year old F who fell around 10 AM this morning could not say why and woke up on the ground. Complaint of left humerus pain EMS was called patient brought into ED. History is obtained from chart as patient is a poor historian. Has a history of chronic alcoholism and likely suffers from dementia from this. She been admitted multiple times for alcohol withdrawal issues related to it. Work-up in ER revealed a nondisplaced spiral fracture of the surgical neck of left humerus. She had electrolyte abnormalities. She had incidentally found pulmonary emboli noted on CT. She is so weak she is unable to stand to get around in ED. She started having alcohol withdrawal in the ED as well. 08/04 Received some Ativan last night. Awake but appears a little bit drowsy. Answering questions. No new complaints Review of Systems: denies headache/fever/chills/nausea/vomiting/chest or abdominal pain/cough/dyspnea/diarrhea. Otherwise see above. - Constitutional Vitals: Vital Signs Temp Pulse Resp BP Pulse Ox 98.0 F 85 13 167/83 95 08/04/19 04:01 08/04/19 07:11 08/04/19 07:37 08/04/19 04:01 08/04/19 04:01 Period Temp Pulse Resp BP Sys/Manning Pulse Ox Last 24 Hr 97.1 F-100.0 F 78-107 13-22 116-167/61-108 93-99 Intake and Output 08/03/19 08/04/19 08/04/19 21:59 05:59 13:59 Intake Total 2350 1589 Output Total 1202 200 Balance 2350 387 -200 Weight 49.578 kg Intake & Output: Intake & Output 08/03/19 08/04/19 08/04/19 21:59 05:59 13:59 Intake Total 2350 1589 Output Total 1202 200 Balance 2350 387 -200 Weight 49.578 kg Intake: IV 2350 1209 Sodium Chloride 0.9% 1,000 ml @ 2000 1209 60 mls/hr IV .[id number] [facility] Rx#: [id number] Zosyn 3.375 gm In Dextrose 5% 50 in Water 50 ml @ 100 mls/hr IV ONCE ONE Rx#:[id number] Vancomycin 1,000 mg In Sodium 250 Chloride 0.9% 250 ml @ 250 mls/ hr IV ONCE ONE Rx#:[id number] Oral 380 Output: Urine Catheter Amount 700 200 Void Amount 500 # of times incontinent of urine 2 Other: Urine Appearance Clear Clear Urine Color [place] Bright Yellow Urine Odor Normal Normal Stool Size Moderate Stool Color Brown Stool Consistency Soft # Bowel Movements 0 Exam: General: Awake, No acute Distress Eyes/N/T: EOMI, Head/Neck: neck supple, CV: RRR, No murmurs, Pulm: Clear b/l, no wheezing/rhonchi/rales Abd: soft, nontender, +BS x4 Ext: no clubbing/cyanosis/edema Neuro: Awake and answering questions but appears to have some slight confusion, no focal deficits, moves all extremities, Skin: warm/dry Medical - PN: Obj Da - Labs CBC & Chem 7: 08/04/19 05:10 08/04/19 05:10 Labs: Abnormal Lab Results 08/04/19 08/04/19 08/03/19 05:10 05:10 21:10 RBC 2.37 L Hgb 7.5 L Hct 23.9 L POC Hct MCV 100.8 H RDW 17.5 H Gran % Lymph % (Auto) Lymph # (Auto) 1.35 L VBG Lactic Acid Potassium 3.1 L Carbon Dioxide Anion Gap Creatinine 0.5 L POC Creatinine Glucose POC Glucose Calcium 8.3 L POC WB Ioniz Calcium Phosphorus 2.5 L Magnesium GGT 77 H AST Total Protein 5.2 L Albumin 2.7 L Ur Specific [place] 1.055 H Urine Ketones 20 A 08/03/19 08/03/19 08/03/19 13:54 13:54 13:54 RBC 2.84 L Hgb 9.1 L Hct 27.7 L POC Hct 27.0 L MCV RDW 17.2 H Gran % 84.6 H Lymph % (Auto) 7.0 L Lymph # (Auto) 0.59 L VBG Lactic Acid 3.4 H Potassium Carbon Dioxide 19 L Anion Gap 22.0 H Creatinine 0.5 L POC Creatinine 0.5 L Glucose 128 H POC Glucose 127 H Calcium POC WB Ioniz Calcium 1.09 L Phosphorus Magnesium 1.2 L GGT AST 49 H Total Protein Albumin Ur Specific [place] Urine Ketones Meds: Medications Acetaminophen (Tylenol) 650 mg PO Q6HP PRN PRN Reason: PAIN/FEVER > 101 Hydrocodone Bitart/Acetaminophen ([place] 5/325mg) 1 tab PO Q4HP PRN PRN Reason: PAIN LEVEL 3-6 Albuterol/Ipratropium (Duoneb) 3 ml NEB Q6HRT [facility] Last Admin: 08/04/19 07:11 Dose: 3 ml Documented by: Apixaban (Eliquis) 10 mg PO BID [facility] Stop: 08/10/19 09:01 Apixaban (Eliquis) 5 mg PO BID [facility] Chlordiazepoxide HCl (Librium) 25 mg PO Q4HP PRN PRN Reason: Alcohol Withdrawal Clonidine HCl (Catapres) 0.1 mg PO Q4HP PRN PRN Reason: ALC Docusate Sodium (Colace) 100 mg PO BID [facility] Famotidine (Pepcid) 20 mg PO BID [facility] Folic Acid (Folic Acid) 1 mg PO DAILY [facility] Potassium Chloride 40 meq/ (Dextrose) 520 mls @ 130 mls/hr IV UD PRN PRN Reason: Potassium < 3 Magnesium Sulfate (Magnesium Sulfate) 2 gm in 50 mls @ 50 mls/hr IV UD PRN PRN Reason: Magnesium </= 1.6 Sodium Chloride (Sodium Chloride 0.9%) 1,000 mls @ 60 mls/hr IV .[id number] [facility] Stop: 08/04/19 14:42 Last Infusion: 08/04/19 02:32 Dose: 60 mls/hr Documented by: Thiamine HCl 100 mg/ Sodium (Chloride) 51 mls @ 50 mls/hr IV DAILY [facility] Stop: 08/06/19 10:02 Iron Carb/Multivit/[place]/Folic Acid (Multivitamin W/Minerals) 1 tab PO DAILY [facility] Lorazepam (Ativan) 0 mg IV Q4HP PRN; Protocol PRN Reason: Alcohol Withdrawal Morphine Sulfate (Morphine) 0 mg IV Q3HP PRN PRN Reason: Pain Ondansetron HCl (Zofran) 4 mg IV Q4HP PRN PRN Reason: Nausea And Vomiting Polyethylene Glycol (Miralax) 17 gm PO DAILYP PRN PRN Reason: Constipation Potassium Chloride (Kdur) 40 meq PO UD PRN PRN Reason: Potssium is 3-3.5 Potassium Chloride (Kdur) 40 meq PO UD PRN PRN Reason: Potassium < 3 Senna (Senokot) 2 tab PO DAILYP PRN PRN Reason: Constipation Sodium Chloride (Saline Flush) 10 ml IV Q8 [facility] Last Admin: 08/04/19 06:02 Dose: Not Given Documented by: Thiamine HCl (Vitamin B1) 100 mg PO DAILY [facility] Medical - PN: A/P - Time Spent With Patient Total time spent is greater than 50% in coordination of care (as documented) at patient's floor/unit and/or counseling patient: - Narrative A/P Narrative: A: *Alcohol withdrawal/alcohol abuse/DT's: *ETOH liver dz: *Encephalopathy superimposed on underlying dementia: 2/2 above *Dementia, likely etoh related *Volume depletion: Lactic acidosis resolved with IVF *Incidental/Asymptomatic pulmonary emboli b/l noted on CT: *Electrolyte abnormality HypoMag/Hypophos: improving *Failure to thrive at home/generalized weakness/deconditioning/debility: *Protein calorie malnutrition: *Macrocytic anemia, chronic: *h/o PUD: *tobacco abuse *Left Humerus nondisplaced spiral fracture of the surgical neck: Plan: -CIWA monitoring with prn benzodiazepines/folate/thiamine/MVI -Nutrition support/dietary consult -electrolyte replacement -Eliquis -PT/OT -Smoking cessation counseling -Alcohol cessation counseling -continue shoulder immobilizer, f/u with Ortho outpatient -Discharge planning per case management, likely needs SNF for inability to care for self at home -ppx: eliquis/ppi Medical - PN: Qual - VTE Deep Vein Thrombosis/Pulmonary Embolism Present on Admission: No
[2019-08-04] MEDS: THIAMINE 100 MG in 0.9 % SODIUM CHLORIDE 50 ML IV SCH (08:51)
[2019-08-04] MEDS: FOLIC ACID 1 MG TABLET PO SCH (08:51)
[2019-08-04] MEDS: MULTIVIT,THER IRON,CA,FA & MIN 1 TABLET PO SCH (08:51)
[2019-08-04] MEDS: DOCUSATE SODIUM 100 MG CAPSULE PO SCH ×2 (08:51→20:41)
[2019-08-04] MEDS: chlordiazePOXIDE 25 MG CAPSULE PO PRN ×4 (08:51→20:41)
[2019-08-04] MEDS: APIXABAN 5 MG TABLET PO SCH ×2 (09:22→20:41)
[2019-08-04] MEDS: FAMOTIDINE 20 MG TABLET PO SCH ×2 (09:22→20:41)
[2019-08-04] MEDS: NICOTINE 21 MG PATCH TOPICAL SCH (11:48)
[2019-08-04] MEDS: HYDROcodone/APAP 5/325MG TABLET PO PRN ×2 (12:41→18:06)
[2019-08-04] MEDS: cloNIDine HCL 0.1 MG TABLET PO PRN (18:36)
[2019-08-04] MEDS: LORazepam 2 MG/ML VIAL IV PRN (19:05)
[2019-08-05] MEDS: IPRATROPIUM/ALBUTEROL 3 ML AMPUL.NEB NEB SCH ×4 (04:01→19:44)
[2019-08-05] MEDS: HYDROcodone/APAP 5/325MG TABLET PO PRN ×4 (04:01→20:13)
[2019-08-05] MEDS: chlordiazePOXIDE 25 MG CAPSULE PO PRN ×3 (04:10→20:13)
[2019-08-05] MEDS: 0.9 % SODIUM CHLORIDE 10 ML SYRINGE IV SCH ×5 (05:41→20:14)
--- NOTE | 2019-08-05 08:45 | Internal Med Progress Note ---
Medical - PN: Subj Patient information: Note initiated : 08/05/19 at 8:42 am Service Date, if different from initiated Date: [] Patient: Do Cantu a 59 y/o F admitted on 08/03/19 for Left shoulder and upper arm pain. Chief Complaint: [] Interval history: Ms. Cantu is a 59 year old F who fell around 10 AM this morning could not say why and woke up on the ground. Complaint of left humerus pain EMS was called patient brought into ED. History is obtained from chart as patient is a poor historian. Has a history of chronic alcoholism and likely suffers from dementia from this. She been admitted multiple times for alcohol withdrawal issues related to it. Work-up in ER revealed a nondisplaced spiral fracture of the surgical neck of left humerus. She had electrolyte abnormalities. She had incidentally found pulmonary emboli noted on CT. She is so weak she is unable to stand to get around in ED. She started having alcohol withdrawal in the ED as well. 08/04 Received some Ativan last night. Awake but appears a little bit drowsy. Answering questions. No new complaints 08/05 CIWA's 7 night. No other issues. Patient sitting up in bed with this nursing assistance today. No new complaints other than poor sleep. Discussed with her the need need for a SNF, and she seemed agreeable. Review of Systems: denies headache/fever/chills/nausea/vomiting/chest or abdominal pain/cough/dyspnea/diarrhea. Otherwise see above. - Constitutional Vitals: Vital Signs Temp Pulse Resp BP Pulse Ox 99.2 F H 87 16 104/65 98 08/05/19 08:00 08/05/19 07:59 08/05/19 08:00 08/05/19 08:00 08/05/19 08:00 Period Temp Pulse Resp BP Sys/Manning Pulse Ox Last 24 Hr 97.0 F-99.2 F 83-111 12-22 92-123/56-72 95-98 Intake and Output 08/04/19 08/05/19 08/05/19 21:59 05:59 13:59 Intake Total 1105 120 Output Total 100 295 Balance 1005 -175 Weight 51.891 kg Intake & Output: Intake & Output 08/04/19 08/05/19 08/05/19 21:59 05:59 13:59 Intake Total 1105 120 Output Total 100 295 Balance 1005 -175 Weight 51.891 kg Intake: Nourishment/Supplement quantity 240 (ml) IV 385 Sodium Chloride 0.9% 1,000 ml @ 385 60 mls/hr IV .[id number] [facility] Rx#: [id number] Oral 480 120 Output: Urine Catheter Amount 100 295 Other: Meal Dinner Percent of Meal Consumed 25% Feeding Ability Total Assistance Nourishment/Supplement name Chocolate Ensure Urine Appearance Clear Clear Uretheral (Alonso) Clear Urine Color Dark Yellow Dark Yellow Uretheral (Alonso) Dark Yellow Dark Yellow Urine Odor Normal Normal Exam: General: Awake, No acute Distress Eyes/N/T: EOMI, Head/Neck: neck supple, CV: RRR, No murmurs, Pulm: Clear b/l, no wheezing/rhonchi/rales Abd: soft, nontender, +BS x4 Ext: no clubbing/cyanosis/edema Neuro: Awake and answering questions but appears to have some slight confusion, no focal deficits, moves all extremities, Skin: warm/dry Medical - PN: Obj Da - Labs CBC & Chem 7: 08/05/19 08:57 08/05/19 08:57 Labs: Abnormal Lab Results 08/04/19 08/04/19 08/03/19 05:10 05:10 21:10 RBC 2.37 L Hgb 7.5 L Hct 23.9 L POC Hct MCV 100.8 H RDW 17.5 H Gran % Lymph % (Auto) Lymph # (Auto) 1.35 L VBG Lactic Acid Potassium 3.1 L Carbon Dioxide Anion Gap Creatinine 0.5 L POC Creatinine Glucose POC Glucose Calcium 8.3 L POC WB Ioniz Calcium Phosphorus 2.5 L Magnesium GGT 77 H AST Total Protein 5.2 L Albumin 2.7 L Ur Specific [place] 1.055 H Urine Ketones 20 A 08/03/19 08/03/19 08/03/19 13:54 13:54 13:54 RBC 2.84 L Hgb 9.1 L Hct 27.7 L POC Hct 27.0 L MCV RDW 17.2 H Gran % 84.6 H Lymph % (Auto) 7.0 L Lymph # (Auto) 0.59 L VBG Lactic Acid 3.4 H Potassium Carbon Dioxide 19 L Anion Gap 22.0 H Creatinine 0.5 L POC Creatinine 0.5 L Glucose 128 H POC Glucose 127 H Calcium POC WB Ioniz Calcium 1.09 L Phosphorus Magnesium 1.2 L GGT AST 49 H Total Protein Albumin Ur Specific [place] Urine Ketones Meds: Medications Acetaminophen (Tylenol) 650 mg PO Q6HP PRN PRN Reason: PAIN/FEVER > 101 Hydrocodone Bitart/Acetaminophen ([place] 5/325mg) 1 tab PO Q4HP PRN PRN Reason: PAIN LEVEL 3-6 Last Admin: 08/05/19 07:52 Dose: 1 tab Documented by: Albuterol/Ipratropium (Duoneb) 3 ml NEB Q6HRT [facility] Last Admin: 08/05/19 07:32 Dose: Not Given Documented by: Apixaban (Eliquis) 10 mg PO BID [facility] Stop: 08/10/19 09:01 Last Admin: 08/04/19 20:41 Dose: 10 mg Documented by: Apixaban (Eliquis) 5 mg PO BID [facility] Chlordiazepoxide HCl (Librium) 25 mg PO Q4HP PRN PRN Reason: Alcohol Withdrawal Last Admin: 08/05/19 04:10 Dose: 25 mg Documented by: Clonidine HCl (Catapres) 0.1 mg PO Q4HP PRN PRN Reason: ALC Last Admin: 08/04/19 18:36 Dose: 0.1 mg Documented by: Docusate Sodium (Colace) 100 mg PO BID [facility] Last Admin: 08/04/19 20:41 Dose: 100 mg Documented by: Famotidine (Pepcid) 20 mg PO BID [facility] Last Admin: 08/04/19 20:41 Dose: 20 mg Documented by: Folic Acid (Folic Acid) 1 mg PO DAILY [facility] Last Admin: 08/04/19 08:51 Dose: 1 mg Documented by: Potassium Chloride 40 meq/ (Dextrose) 520 mls @ 130 mls/hr IV UD PRN PRN Reason: Potassium < 3 Magnesium Sulfate (Magnesium Sulfate) 2 gm in 50 mls @ 50 mls/hr IV UD PRN PRN Reason: Magnesium </= 1.6 Thiamine HCl 100 mg/ Sodium (Chloride) 51 mls @ 50 mls/hr IV DAILY [facility] Stop: 08/06/19 10:02 Last Infusion: 08/04/19 10:00 Dose: Infused Documented by: Iron Carb/Multivit/[place]/Folic Acid (Multivitamin W/Minerals) 1 tab PO DAILY [facility] Last Admin: 08/04/19 08:51 Dose: 1 tab Documented by: Lorazepam (Ativan) 0 mg IV Q4HP PRN; Protocol PRN Reason: Alcohol Withdrawal Last Admin: 08/04/19 19:05 Dose: 2 mg Documented by: Morphine Sulfate (Morphine) 0 mg IV Q3HP PRN PRN Reason: Pain Nicotine (Nicoderm) 21 mg TOPICAL DAILY@1000 [facility] Last Admin: 08/04/19 11:48 Dose: 21 mg Documented by: Ondansetron HCl (Zofran) 4 mg IV Q4HP PRN PRN Reason: Nausea And Vomiting Polyethylene Glycol (Miralax) 17 gm PO DAILYP PRN PRN Reason: Constipation Potassium Chloride (Kdur) 40 meq PO UD PRN PRN Reason: Potssium is 3-3.5 Potassium Chloride (Kdur) 40 meq PO UD PRN PRN Reason: Potassium < 3 Senna (Senokot) 2 tab PO DAILYP PRN PRN Reason: Constipation Sodium Chloride (Saline Flush) 10 ml IV Q8 [facility] Last Admin: 08/05/19 05:41 Dose: 10 ml Documented by: Thiamine HCl (Vitamin B1) 100 mg PO DAILY [facility] Medical - PN: A/P - Time Spent With Patient Total time spent is greater than 50% in coordination of care (as documented) at patient's floor/unit and/or counseling patient: - Narrative A/P Narrative: A: *Alcohol withdrawal/alcohol abuse/DT's: *ETOH liver dz: *Encephalopathy 2/2 above superimposed on underlying dementia: 2/2 above *Dementia, likely etoh related *Volume depletion: Lactic acidosis resolved with IVF *Incidental/Asymptomatic pulmonary emboli b/l noted on CT: *Electrolyte abnormality HypoMag/Hypophos: improving *Failure to thrive at home/generalized weakness/deconditioning/debility: *Protein calorie malnutrition: *Macrocytic anemia, chronic: dilution component *h/o PUD: *tobacco abuse: *Left Humerus nondisplaced spiral fracture of the surgical neck: Plan: -CIWA monitoring with prn benzodiazepines/folate/thiamine/MVI -Nutrition support/dietary consult -electrolyte replacement -Eliquis -PT/OT -Smoking cessation counseling -Alcohol cessation counseling -continue shoulder immobilizer, f/u with Ortho outpatient -Discharge planning per case management, likely needs SNF for inability to care for self at home -ppx: eliquis/ppi Medical - PN: Qual - VTE Deep Vein Thrombosis/Pulmonary Embolism Present on Admission: No
[2019-08-05] MEDS: FOLIC ACID 1 MG TABLET PO SCH (09:25)
[2019-08-05] MEDS: APIXABAN 5 MG TABLET PO SCH ×2 (09:26→20:13)
[2019-08-05] MEDS: MULTIVIT,THER IRON,CA,FA & MIN 1 TABLET PO SCH (09:26)
[2019-08-05] MEDS: DOCUSATE SODIUM 100 MG CAPSULE PO SCH ×2 (09:26→20:13)
[2019-08-05] MEDS: FAMOTIDINE 20 MG TABLET PO SCH ×2 (09:26→20:13)
[2019-08-05] MEDS: THIAMINE 100 MG in 0.9 % SODIUM CHLORIDE 50 ML IV SCH (09:28)
[2019-08-05 09:38] LABS: Basophils # (Auto) 0.06 K/mcL (0.00-0.30); Basophils % (Auto) 0.9 % (0.0-2.0); Eosinophils # (Auto) 0.16 K/mcL (0.00-0.70); Eosinophils % (Auto) 2.5 % (0.0-7.0); Granulocytes % (Auto) 65.8 % (38.0-78.0); Hematocrit 28.1 % (34.1-44.9); Lymphocytes # (Auto) 1.65 K/mcL (1.50-4.80); Lymphocytes % (Auto) 25.3 % (15.5-49.0); Mean Platelet Volume 10.3 fL (7.4-10.4); Monocytes # (Auto) 0.36 K/mcL (0.10-0.90); Monocytes % (Auto) 5.5 % (1.0-12.0); Platelet Count 195 K/mcL (140-440); RBC 2.81 M/mcL (3.59-5.38); Red Cell Distribution Width 17.3 % (11.5-14.5); WBC 6.5 K/mcL (4.50-11.00)
[2019-08-05 09:56] LABS: Bilirubin,Direct < 0.2 mg/dL (0.0-0.3); Chloride 103 mmol/L (96-108)
[2019-08-05 10:14] LABS: ALT/SGPT 14 U/l (0-40); AST/SGOT 34 U/l (0-37); Albumin 2.9 gm/dL (3.2-5.2); Alkaline Phosphatase 86 U/L (39-117); Bilirubin,Total 0.4 mg/dL (0.0-1.0); Blood Urea Nitrogen 8 mg/dl (6-20); Calcium 8.7 mg/dl (8.6-10.4); Carbon Dioxide 22 mmol/L (22-30); Glomerular Filtration Rate 105; Glucose 123 mg/dL (70-105); Lactate Dehydrogenase 252 U/L (94-250); Phosphorous 2.7 mg/dL (2.7-4.5); Triglycerides 96 mg/dl (<150); Uric Acid 4.2 mg/dL (2.5-8.0)
[2019-08-05] MEDS: NICOTINE 21 MG PATCH TOPICAL SCH (10:41)
[2019-08-05] MEDS: MAGNESIUM SULFATE 2 GM/50 ML BAG IV PRN (12:00)
--- NOTE | 2019-08-05 12:01 | Discharge Summary ---
Medical - DS: Prov Patient information: Note initiated : 08/05/19 at 11:59 am Service Date, if different from initiated Date: [] Patient: Do Cantu 59 y/o F admitted on 08/03/19 for Left shoulder and upper arm pain. Chief Complaint: [] Date of admission: 08/03/19 21:54 Primary care physician: Nahum Munoz Consults: 08/03/19 Consult to Physician [CONS] Stat Comment: Consulting Provider: Nakul Alcantara Reason For Exam: Physician to Consult Medical - DS: Meds - Discharge Medications Prescriptions: Apixaban [Eliquis] 5 mg PO BID #30 tablet Active and Home Medications: Home Medications Magnesium Oxide [Magnesium] 400 mg PO DAILY 08/04/19 [History Confirmed 08/04/19 Last Taken Unknown] Multivit-Min/Iron/Folic Acid/K [Adults Multivitamin Tablet] 1 each PO DAILY 08/04/19 [History Confirmed 08/04/19 Last Taken Unknown] Medical - DS: Hosp Hospital Course: Ms. Cantu is a 59 year old F who fell around 10 AM this morning could not say why and woke up on the ground. Complaint of left humerus pain EMS was called patient brought into ED. History is obtained from chart as patient is a poor historian. Has a history of chronic alcoholism and likely suffers from dementia from this. She been admitted multiple times for alcohol withdrawal issues related to it. Work-up in ER revealed a nondisplaced spiral fracture of the surgical neck of left humerus. She had electrolyte abnormalities. She had incidentally found pulmonary emboli noted on CT. She is so weak she is unable to stand to get around in ED. She started having alcohol withdrawal in the ED as well. 08/04 Received some Ativan last night. Awake but appears a little bit drowsy. Answering questions. No new complaints 08/05 CIWA's 7 night. No other issues. Patient sitting up in bed with this nursing assistance today. No new complaints other than poor sleep. Discussed with her the need need for a SNF, and she seemed agreeable. Discharge diagnosis: Alcohol withdrawal and abuse dementia electrolyte abnormalities failure to Secondary discharge diagnosis: Failure to thrive malnutrition anemia tobacco abuse left humerus fracture - Time Spent with Patient Total time spent providing and/or coordinating discharge services: Greater than 30 minutes Medical - DS: Exam - Constitutional Vitals: Vital Signs Temp Pulse Resp BP Pulse Ox 08/05/19 08:00 99.2 F H 16 104/65 98 08/05/19 07:59 87 22 98 08/05/19 07:57 99.2 F H 88 21 104/65 98 08/05/19 07:55 98 08/05/19 07:30 98 08/05/19 06:01 94 H 21 97 08/05/19 04:01 97.0 F 97 H 20 123/72 97 08/05/19 02:00 96 08/05/19 00:01 97.1 F 83 12 92/58 97 08/04/19 22:21 86 21 08/04/19 20:02 98.2 F 111 H 16 116/56 95 08/04/19 19:17 102 H 19 08/04/19 18:30 95 08/04/19 16:01 97.8 F 100 H 20 98/59 97 08/04/19 14:40 100 H 16 08/04/19 12:46 97 H 17 08/04/19 12:30 97 08/04/19 12:01 99.0 F 90 19 92/66 97 Intake and Output 08/04/19 08/05/19 08/05/19 21:59 05:59 13:59 Intake Total 1105 120 411 Output Total 100 295 80 Balance 1005 -175 331 Intake: Nourishment/Supplement quantity 240 240 (ml) IV 385 51 Sodium Chloride 0.9% 1,000 ml @ 385 60 mls/hr IV .[id number] [facility] Rx#: [id number] Vitamin B1 100 mg In Sodium 51 Chloride 0.9% 50 ml @ 50 mls/hr IV DAILY [facility] Rx#:[id number] Oral 480 120 120 Output: Urine Catheter Amount 100 295 80 Other: Meal Dinner Breakfast Percent of Meal Consumed 25% 75% Feeding Ability Total Assistance Needs Supervision Nourishment/Supplement name Chocolate Ensure Ensure [place] Urine Appearance Clear Clear Clear Uretheral (Alonso) Clear Clear Urine Color Dark Yellow Dark Yellow Dark Yellow Uretheral (Alonso) Dark Yellow Dark Yellow Dark Yellow Urine Odor Normal Normal Normal Weight 51.891 kg Medical - DS: Data Labs on day of discharge: Labs from last 24 hours 08/05/19 08/05/19 08:57 08:57 WBC 6.5 RBC 2.81 L Hgb 9.0 L Hct 28.1 L MCV 100.0 MCH 32.0 MCHC 32.0 RDW 17.3 H Plt Count 195 MPV 10.3 Gran % 65.8 Lymph % (Auto) 25.3 [place] % (Auto) 5.5 Eos % (Auto) 2.5 Baso % (Auto) 0.9 Gran # 4.29 Lymph # (Auto) 1.65 [place] # (Auto) 0.36 Eos # (Auto) 0.16 Baso # (Auto) 0.06 Sodium 135 Potassium 3.9 Chloride 103 Carbon Dioxide 22 Anion Gap 10.0 BUN 8 Creatinine 0.5 L GFR Calculation 105 Glucose 123 H Uric Acid 4.2 Calcium 8.7 Phosphorus 2.7 Magnesium 1.6 Total Bilirubin 0.4 Direct Bilirubin < 0.2 GGT 82 H AST 34 ALT 14 Alkaline Phosphatase 86 Lactate Dehydrogenase 252 H Total Protein 5.9 Albumin 2.9 L Globulin 3.0 Albumin/Globulin Ratio 1.0 Triglycerides 96 Medical - DS: A/P - Patient/Caregiver Discharge Instructions Activity: as per physical therapy Diet: Regular Diet Additional Instructions: Furl to see orthopedic surgery in 5 to 10 days for left numerous fracture Prescriptions: Apixaban [Eliquis] 5 mg PO BID #30 tablet - Follow up Plan Follow up with: Nahum Munoz PA-C [Primary Care Provider] - Genia Velasquez DO [Physician] - (for alcohol abuse) Disposition: Xfer SNF Prognosis: Serious Rehab Potential: Fair I certify that the patient requires SNF services: Yes Overall status at discharge: patient is progressing back to baseline Medical - DS: Qual - VTE Deep Vein Thrombosis/Pulmonary Embolism Present on Admission: No
[2019-08-05] MEDS: cloNIDine HCL 0.1 MG TABLET PO PRN (20:36)
[2019-08-05] MEDS: LORazepam 2 MG/ML VIAL IV PRN (21:46)
[2019-08-06] MEDS: IPRATROPIUM/ALBUTEROL 3 ML AMPUL.NEB NEB SCH ×4 (01:00→18:41)
[2019-08-06] MEDS: 0.9 % SODIUM CHLORIDE 10 ML SYRINGE IV SCH ×4 (05:47→21:35)
[2019-08-06] MEDS: HYDROcodone/APAP 5/325MG TABLET PO PRN ×3 (06:48→19:21)
--- NOTE | 2019-08-06 07:36 | Internal Med Progress Note ---
Medical - PN: Subj Patient information: Note initiated : 08/06/19 at 7:35 am Service Date, if different from initiated Date: [] Patient: Do Cantu a 59 y/o F admitted on 08/03/19 for Left shoulder and upper arm pain. Chief Complaint: [] Interval history: Ms. Cantu is a 59 year old F who fell around 10 AM this morning could not say why and woke up on the ground. Complaint of left humerus pain EMS was called patient brought into ED. History is obtained from chart as patient is a poor historian. Has a history of chronic alcoholism and likely suffers from dementia from this. She been admitted multiple times for alcohol withdrawal issues related to it. Work-up in ER revealed a nondisplaced spiral fracture of the surgical neck of left humerus. She had electrolyte abnormalities. She had incidentally found pulmonary emboli noted on CT. She is so weak she is unable to stand to get around in ED. She started having alcohol withdrawal in the ED as well. 08/04 Received some Ativan last night. Awake but appears a little bit drowsy. Answering questions. No new complaints 08/05 CIWA's 7 night. No other issues. Patient sitting up in bed with this nursing assistance today. No new complaints other than poor sleep. Discussed with her the need need for a SNF, and she seemed agreeable. 08/06 Patient elevated CIWA was last night and got benzodiazepine. Patient this morning with confusion. Still having alcoholic withdrawals. Will need placement. Review of Systems: denies headache/fever/chills/nausea/vomiting/chest or abdominal pain/cough/dyspnea/diarrhea. Otherwise see above. - Constitutional Vitals: Vital Signs Temp Pulse Resp BP Pulse Ox 98.0 F 86 18 115/72 97 08/06/19 06:49 08/06/19 06:49 08/06/19 06:49 08/06/19 06:49 08/06/19 06:49 Period Temp Pulse Resp BP Sys/Manning Pulse Ox Last 24 Hr 97.0 F-99.2 F 78-105 27 87-115/57-73 97-100 Intake and Output 08/05/19 08/06/19 08/06/19 21:59 05:59 13:59 Intake Total 480 Output Total 250 Balance 230 Weight 53.887 kg Intake & Output: Intake & Output 08/05/19 08/06/19 08/06/19 21:59 05:59 13:59 Intake Total 480 Output Total 250 Balance 230 Weight 53.887 kg Intake: Oral 480 Output: Urine Catheter Amount 250 Other: Meal Lunch Percent of Meal Consumed 75% Feeding Ability Needs Supervision Urine Appearance Clear Uretheral (Alonso) Clear Clear Urine Color Dark Yellow Uretheral (Alonso) Dark Yellow Dark Yellow Urine Odor Normal Exam: General: Awake, No acute Distress Eyes/N/T: EOMI, Head/Neck: neck supple, CV: RRR, No murmurs, Pulm: Clear b/l, no wheezing/rhonchi/rales Abd: soft, nontender, +BS x4 Ext: no clubbing/cyanosis/edema Neuro: Awake and confusion but does follow commands, no focal deficits, moves all extremities, Skin: warm/dry Medical - PN: Obj Da - Labs CBC & Chem 7: 08/05/19 08:57 08/05/19 08:57 Labs: Abnormal Lab Results 08/05/19 08/05/19 08/04/19 08:57 08:57 05:10 RBC 2.81 L Hgb 9.0 L Hct 28.1 L POC Hct MCV RDW 17.3 H Gran % Lymph % (Auto) Lymph # (Auto) VBG Lactic Acid Potassium 3.1 L Carbon Dioxide Anion Gap Creatinine 0.5 L 0.5 L POC Creatinine Glucose 123 H POC Glucose Calcium 8.3 L POC WB Ioniz Calcium Phosphorus 2.5 L Magnesium GGT 82 H 77 H AST Lactate Dehydrogenase 252 H Total Protein 5.2 L Albumin 2.9 L 2.7 L Ur Specific [place] Urine Ketones 08/04/19 08/03/19 08/03/19 05:10 21:10 13:54 RBC 2.37 L Hgb 7.5 L Hct 23.9 L POC Hct MCV 100.8 H RDW 17.5 H Gran % Lymph % (Auto) Lymph # (Auto) 1.35 L VBG Lactic Acid 3.4 H Potassium Carbon Dioxide Anion Gap Creatinine POC Creatinine Glucose POC Glucose Calcium POC WB Ioniz Calcium Phosphorus Magnesium GGT AST Lactate Dehydrogenase Total Protein Albumin Ur Specific [place] 1.055 H Urine Ketones 20 A 08/03/19 08/03/19 13:54 13:54 RBC 2.84 L Hgb 9.1 L Hct 27.7 L POC Hct 27.0 L MCV RDW 17.2 H Gran % 84.6 H Lymph % (Auto) 7.0 L Lymph # (Auto) 0.59 L VBG Lactic Acid Potassium Carbon Dioxide 19 L Anion Gap 22.0 H Creatinine 0.5 L POC Creatinine 0.5 L Glucose 128 H POC Glucose 127 H Calcium POC WB Ioniz Calcium 1.09 L Phosphorus Magnesium 1.2 L GGT AST 49 H Lactate Dehydrogenase Total Protein Albumin Ur Specific [place] Urine Ketones Meds: Medications Acetaminophen (Tylenol) 650 mg PO Q6HP PRN PRN Reason: PAIN/FEVER > 101 Hydrocodone Bitart/Acetaminophen ([place] 5/325mg) 1 tab PO Q4HP PRN PRN Reason: PAIN LEVEL 3-6 Last Admin: 08/06/19 06:48 Dose: 1 tab Documented by: Albuterol/Ipratropium (Duoneb) 3 ml NEB Q6HRT [facility] Last Admin: 08/06/19 07:35 Dose: Not Given Documented by: Apixaban (Eliquis) 10 mg PO BID [facility] Stop: 08/10/19 09:01 Last Admin: 08/05/19 20:13 Dose: 10 mg Documented by: Apixaban (Eliquis) 5 mg PO BID [facility] Chlordiazepoxide HCl (Librium) 25 mg PO Q4HP PRN PRN Reason: Alcohol Withdrawal Last Admin: 08/05/19 20:13 Dose: 25 mg Documented by: Clonidine HCl (Catapres) 0.1 mg PO Q4HP PRN PRN Reason: ALC Last Admin: 08/05/19 20:36 Dose: 0.1 mg Documented by: Docusate Sodium (Colace) 100 mg PO BID [facility] Last Admin: 08/05/19 20:13 Dose: 100 mg Documented by: Famotidine (Pepcid) 20 mg PO BID [facility] Last Admin: 08/05/19 20:13 Dose: 20 mg Documented by: Folic Acid (Folic Acid) 1 mg PO DAILY [facility] Last Admin: 08/05/19 09:25 Dose: 1 mg Documented by: Potassium Chloride 40 meq/ (Dextrose) 520 mls @ 130 mls/hr IV UD PRN PRN Reason: Potassium < 3 Magnesium Sulfate (Magnesium Sulfate) 2 gm in 50 mls @ 50 mls/hr IV UD PRN PRN Reason: Magnesium </= 1.6 Last Infusion: 08/05/19 13:02 Dose: Infused Documented by: Thiamine HCl 100 mg/ Sodium (Chloride) 51 mls @ 50 mls/hr IV DAILY [facility] Stop: 08/06/19 10:02 Last Infusion: 08/05/19 10:30 Dose: Infused Documented by: Iron Carb/Multivit/Basket Machine Operator/Folic Acid (Multivitamin W/Minerals) 1 tab PO DAILY [facility] Last Admin: 08/05/19 09:26 Dose: 1 tab Documented by: Lorazepam (Ativan) 0 mg IV Q4HP PRN; Protocol PRN Reason: Alcohol Withdrawal Last Admin: 08/05/19 21:46 Dose: 2 mg Documented by: Morphine Sulfate (Morphine) 0 mg IV Q3HP PRN PRN Reason: Pain Nicotine (Nicoderm) 21 mg TOPICAL DAILY@1000 [facility] Last Admin: 08/05/19 10:41 Dose: 21 mg Documented by: Ondansetron HCl (Zofran) 4 mg IV Q4HP PRN PRN Reason: Nausea And Vomiting Polyethylene Glycol (Miralax) 17 gm PO DAILYP PRN PRN Reason: Constipation Potassium Chloride (Kdur) 40 meq PO UD PRN PRN Reason: Potssium is 3-3.5 Potassium Chloride (Kdur) 40 meq PO UD PRN PRN Reason: Potassium < 3 Senna (Senokot) 2 tab PO DAILYP PRN PRN Reason: Constipation Sodium Chloride (Saline Flush) 10 ml IV Q8 [facility] Last Admin: 08/06/19 05:47 Dose: 10 ml Documented by: Thiamine HCl (Vitamin B1) 100 mg PO DAILY [facility] Medical - PN: A/P - Time Spent With Patient Total time spent is greater than 50% in coordination of care (as documented) at patient's floor/unit and/or counseling patient: - Narrative A/P Narrative: A: *Alcohol withdrawal/alcohol abuse/DT's: *Encephalopathy 2/2 above superimposed on underlying dementia: 2/2 above *Dementia, likely etoh related *Volume depletion: Lactic acidosis resolved with IVF *Incidental/Asymptomatic pulmonary emboli b/l noted on CT: *Electrolyte abnormality HypoMag/Hypophos: improving *Failure to thrive at home/generalized weakness/deconditioning/debility: *Protein calorie malnutrition: *Macrocytic anemia, chronic: dilution component *h/o PUD: *tobacco abuse: *Left Humerus nondisplaced spiral fracture of the surgical neck: Plan: -CIWA monitoring with prn benzodiazepines/folate/thiamine/MVI -Nutrition support/dietary consult -electrolyte replacement -Eliquis -PT/OT -Smoking cessation counseling -Alcohol cessation counseling -continue shoulder immobilizer, f/u with Ortho outpatient -Discharge planning per case management, likely needs SNF for inability to care for self at home -ppx: eliquis/ppi Medical - PN: Qual - VTE Deep Vein Thrombosis/Pulmonary Embolism Present on Admission: No
[2019-08-06] MEDS ORDERED: 0.9 % SODIUM CHLORIDE 500 ML IV ONE (08:20)
[2019-08-06] MEDS: DOCUSATE SODIUM 100 MG CAPSULE PO SCH ×2 (09:50→21:07)
[2019-08-06] MEDS: FOLIC ACID 1 MG TABLET PO SCH (09:50)
[2019-08-06] MEDS: MULTIVIT,THER IRON,CA,FA & MIN 1 TABLET PO SCH (09:50)
[2019-08-06] MEDS: FAMOTIDINE 20 MG TABLET PO SCH ×2 (09:50→21:35)
[2019-08-06] MEDS: APIXABAN 5 MG TABLET PO SCH ×2 (09:50→21:35)
[2019-08-06] MEDS: NICOTINE 21 MG PATCH TOPICAL SCH (10:16)
[2019-08-06] MEDS: THIAMINE 100 MG in 0.9 % SODIUM CHLORIDE 50 ML IV SCH (10:16)
[2019-08-06] MEDS: cloNIDine HCL 0.1 MG TABLET PO PRN (19:20)
[2019-08-06] MEDS: chlordiazePOXIDE 25 MG CAPSULE PO PRN (19:21)
[2019-08-06] MEDS: LORazepam 2 MG/ML VIAL IV PRN (22:15)
[2019-08-07] MEDS: chlordiazePOXIDE 25 MG CAPSULE PO PRN ×5 (01:07→23:31)
[2019-08-07] MEDS: HYDROcodone/APAP 5/325MG TABLET PO PRN ×5 (01:07→23:31)
[2019-08-07] MEDS: IPRATROPIUM/ALBUTEROL 3 ML AMPUL.NEB NEB SCH ×4 (01:07→18:51)
[2019-08-07] MEDS: LORazepam 2 MG/ML VIAL IV PRN (03:22)
[2019-08-07] MEDS: 0.9 % SODIUM CHLORIDE 10 ML SYRINGE IV SCH ×4 (05:15→21:35)
--- NOTE | 2019-08-07 07:12 | Internal Med Progress Note ---
Medical - PN: Subj Patient information: Note initiated : 08/07/19 at 7:10 am Service Date, if different from initiated Date: [] Patient: Do Cantu a 59 y/o F admitted on 08/03/19 for Left shoulder and upper arm pain. Chief Complaint: [] Interval history: Ms. Cantu is a 59 year old F who fell around 10 AM this morning could not say why and woke up on the ground. Complaint of left humerus pain EMS was called patient brought into ED. History is obtained from chart as patient is a poor historian. Has a history of chronic alcoholism and likely suffers from dementia from this. She been admitted multiple times for alcohol withdrawal issues related to it. Work-up in ER revealed a nondisplaced spiral fracture of the surgical neck of left humerus. She had electrolyte abnormalities. She had incidentally found pulmonary emboli noted on CT. She is so weak she is unable to stand to get around in ED. She started having alcohol withdrawal in the ED as well. 08/04 Received some Ativan last night. Awake but appears a little bit drowsy. Answering questions. No new complaints 08/05 CIWA's 7 night. No other issues. Patient sitting up in bed with this nursing assistance today. No new complaints other than poor sleep. Discussed with her the need need for a SNF, and she seemed agreeable. 08/06 Patient elevated CIWA was last night and got benzodiazepine. Patient this morning with confusion. Still having alcoholic withdrawals. Will need placement. 08/07 Elevated CIWA again last night. Sitting up in chair eating breakfast today. Confusion. Review of Systems: denies headache/fever/chills/nausea/vomiting/chest or abdominal pain/cough/dyspnea/diarrhea. Otherwise see above. - Constitutional Vitals: Vital Signs Temp Pulse Resp BP Pulse Ox 97.2 F 79 17 99/65 97 08/07/19 04:01 08/07/19 04:01 08/07/19 04:01 08/07/19 04:01 08/07/19 04:01 Period Temp Pulse Resp BP Sys/Manning Pulse Ox Last 24 Hr 97.1 F-97.9 F 74-103 12-22 53-115/39-90 97-100 Intake and Output 08/06/19 08/07/19 08/07/19 21:59 05:59 13:59 Intake Total 360 540 Output Total 625 600 Balance -265 -60 Weight 54.114 kg Intake & Output: Intake & Output 08/06/19 08/07/19 08/07/19 21:59 05:59 13:59 Intake Total 360 540 Output Total 625 600 Balance -265 -60 Weight 54.114 kg Intake: Nourishment/Supplement quantity 240 (ml) Oral 360 300 Output: Urine Catheter Amount 625 600 Other: Meal Lunch Nourishment/Supplement Percent of Meal Consumed 50% 100% Feeding Ability Total Assistance Independent Urine Appearance Clear Clear Uretheral (Alonso) Clear Clear Urine Color Bright Yellow Bright Yellow Uretheral (Alonso) Bright Yellow Bright Yellow Urine Odor Normal Stool Size Moderate Stool Color Brown Stool Consistency Soft # of times incontinent of 1 Bowels Exam: General: Awake, No acute Distress Eyes/N/T: EOMI, Head/Neck: neck supple, CV: RRR, No murmurs, Pulm: Clear b/l, no wheezing/rhonchi/rales Abd: soft, nontender, +BS x4 Ext: no clubbing/cyanosis/edema Neuro: Awake and confusion but does follow commands, no focal deficits, moves all extremities, Skin: warm/dry Medical - PN: Obj Da - Labs CBC & Chem 7: 08/05/19 08:57 08/05/19 08:57 Labs: Abnormal Lab Results 08/05/19 08/05/19 08/04/19 08:57 08:57 05:10 RBC 2.81 L Hgb 9.0 L Hct 28.1 L RDW 17.3 H Potassium 3.1 L Creatinine 0.5 L 0.5 L Glucose 123 H Calcium 8.3 L Phosphorus 2.5 L GGT 82 H 77 H Lactate Dehydrogenase 252 H Total Protein 5.2 L Albumin 2.9 L 2.7 L Meds: Medications Acetaminophen (Tylenol) 650 mg PO Q6HP PRN PRN Reason: PAIN/FEVER > 101 Hydrocodone Bitart/Acetaminophen ([place] 5/325mg) 1 tab PO Q4HP PRN PRN Reason: PAIN LEVEL 3-6 Last Admin: 08/07/19 05:14 Dose: 1 tab Documented by: Albuterol/Ipratropium (Duoneb) 3 ml NEB Q6HRT [facility] Last Admin: 08/07/19 01:07 Dose: 3 ml Documented by: Apixaban (Eliquis) 10 mg PO BID [facility] Stop: 08/10/19 09:01 Last Admin: 08/06/19 21:35 Dose: 10 mg Documented by: Apixaban (Eliquis) 5 mg PO BID [facility] Chlordiazepoxide HCl (Librium) 25 mg PO Q4HP PRN PRN Reason: Alcohol Withdrawal Last Admin: 08/07/19 05:14 Dose: 25 mg Documented by: Clonidine HCl (Catapres) 0.1 mg PO Q4HP PRN PRN Reason: ALC Last Admin: 08/06/19 19:20 Dose: 0.1 mg Documented by: Docusate Sodium (Colace) 100 mg PO BID [facility] Last Admin: 08/06/19 21:07 Dose: Not Given Documented by: Famotidine (Pepcid) 20 mg PO BID [facility] Last Admin: 08/06/19 21:35 Dose: 20 mg Documented by: Folic Acid (Folic Acid) 1 mg PO DAILY [facility] Last Admin: 08/06/19 09:50 Dose: 1 mg Documented by: Potassium Chloride 40 meq/ (Dextrose) 520 mls @ 130 mls/hr IV UD PRN PRN Reason: Potassium < 3 Magnesium Sulfate (Magnesium Sulfate) 2 gm in 50 mls @ 50 mls/hr IV UD PRN PRN Reason: Magnesium </= 1.6 Last Infusion: 08/05/19 13:02 Dose: Infused Documented by: Iron Carb/Multivit/[place]/Folic Acid (Multivitamin W/Minerals) 1 tab PO DAILY [facility] Last Admin: 08/06/19 09:50 Dose: 1 tab Documented by: Lorazepam (Ativan) 0 mg IV Q4HP PRN; Protocol PRN Reason: Alcohol Withdrawal Last Admin: 08/07/19 03:22 Dose: 2 mg Documented by: Morphine Sulfate (Morphine) 0 mg IV Q3HP PRN PRN Reason: Pain Nicotine (Nicoderm) 21 mg TOPICAL DAILY@1000 [facility] Last Admin: 08/06/19 10:16 Dose: 21 mg Documented by: Ondansetron HCl (Zofran) 4 mg IV Q4HP PRN PRN Reason: Nausea And Vomiting Polyethylene Glycol (Miralax) 17 gm PO DAILYP PRN PRN Reason: Constipation Potassium Chloride (Kdur) 40 meq PO UD PRN PRN Reason: Potssium is 3-3.5 Potassium Chloride (Kdur) 40 meq PO UD PRN PRN Reason: Potassium < 3 Senna (Senokot) 2 tab PO DAILYP PRN PRN Reason: Constipation Sodium Chloride (Saline Flush) 10 ml IV Q8 [facility] Last Admin: 08/07/19 05:15 Dose: 10 ml Documented by: Thiamine HCl (Vitamin B1) 100 mg PO DAILY [facility] Medical - PN: A/P - Time Spent With Patient Total time spent is greater than 50% in coordination of care (as documented) at patient's floor/unit and/or counseling patient: - Narrative A/P Narrative: A: *Alcohol withdrawal/alcohol abuse/DT's: *Encephalopathy 2/2 above superimposed on underlying dementia: 2/2 above *Dementia, likely etoh related -CT brain moderate atrophy, also mild white matter ischemic changes *Volume depletion: Lactic acidosis resolved with IVF *Incidental/Asymptomatic pulmonary emboli b/l noted on CT: on room air *Electrolyte abnormality HypoMag/Hypophos: improving *Failure to thrive at home/generalized weakness/deconditioning/debility: *Protein calorie malnutrition: *Macrocytic anemia, chronic: dilution component *h/o PUD: *tobacco abuse: *Left Humerus nondisplaced spiral fracture of the surgical neck: Plan: -CIWA monitoring with prn benzodiazepines/folate/thiamine/MVI -Nutrition support/dietary consult -electrolyte replacement prn -Eliquis -PT/OT -Smoking cessation counseling -Alcohol cessation counseling -continue shoulder immobilizer, f/u with Ortho outpatient -Discharge planning per case management, likely needs SNF for inability to care for self at home -ppx: eliquis/ppi Medical - PN: Qual - VTE Deep Vein Thrombosis/Pulmonary Embolism Present on Admission: No
[2019-08-07 08:48] LABS: Basophils # (Auto) 0.03 K/mcL (0.00-0.30); Basophils % (Auto) 0.5 % (0.0-2.0); Eosinophils # (Auto) 0.12 K/mcL (0.00-0.70); Eosinophils % (Auto) 1.9 % (0.0-7.0); Hematocrit 27.2 % (34.1-44.9); Hemoglobin 8.5 g/dL (11.2-15.7); Lymphocytes # (Auto) 1.47 K/mcL (1.50-4.80); Lymphocytes % (Auto) 23.2 % (15.5-49.0); Mean Corpuscular HGB Conc 31.3 g/dL (31.0-36.0); Mean Platelet Volume 9.9 fL (7.4-10.4); Monocytes # (Auto) 0.47 K/mcL (0.10-0.90); Monocytes % (Auto) 7.4 % (1.0-12.0); Platelet Count 205 K/mcL (140-440); RBC 2.64 M/mcL (3.59-5.38); Red Cell Distribution Width 18.2 % (11.5-14.5); WBC 6.3 K/mcL (4.50-11.00)
[2019-08-07 09:05] LABS: ALT/SGPT 12 U/l (0-40); AST/SGOT 24 U/l (0-37); Albumin 2.9 gm/dL (3.2-5.2); Alkaline Phosphatase 81 U/L (39-117); Bilirubin,Direct < 0.2 mg/dL (0.0-0.3); Bilirubin,Total 0.3 mg/dL (0.0-1.0); Blood Urea Nitrogen 10 mg/dl (6-20); Carbon Dioxide 23 mmol/L (22-30); Chloride 103 mmol/L (96-108); Glomerular Filtration Rate 99; Glucose 106 mg/dL (70-105); Lactate Dehydrogenase 208 U/L (94-250); Phosphorous 4.5 mg/dL (2.7-4.5); Triglycerides 130 mg/dl (<150); Uric Acid 3.9 mg/dL (2.5-8.0)
[2019-08-07] MEDS: MULTIVIT,THER IRON,CA,FA & MIN 1 TABLET PO SCH (09:15)
[2019-08-07] MEDS: FOLIC ACID 1 MG TABLET PO SCH (09:15)
[2019-08-07] MEDS: FAMOTIDINE 20 MG TABLET PO SCH ×2 (09:15→21:34)
[2019-08-07] MEDS: THIAMINE 100 MG TABLET PO SCH (09:15)
[2019-08-07] MEDS: APIXABAN 5 MG TABLET PO SCH ×2 (09:16→21:34)
[2019-08-07] MEDS: DOCUSATE SODIUM 100 MG CAPSULE PO SCH ×2 (09:16→21:35)
[2019-08-07] MEDS: NICOTINE 21 MG PATCH TOPICAL SCH (11:13)
[2019-08-07] MEDS: MAGNESIUM SULFATE 2 GM/50 ML BAG IV PRN (13:01)
[2019-08-08] MEDS: IPRATROPIUM/ALBUTEROL 3 ML AMPUL.NEB NEB SCH ×4 (02:38→19:06)
[2019-08-08] MEDS: 0.9 % SODIUM CHLORIDE 10 ML SYRINGE IV SCH ×3 (05:25→20:08)
[2019-08-08] MEDS: HYDROcodone/APAP 5/325MG TABLET PO PRN ×4 (05:25→22:58)
[2019-08-08 07:18] LABS: Hematocrit 25.9 % (34.1-44.9); Hemoglobin 7.9 g/dL (11.2-15.7)
--- NOTE | 2019-08-08 07:48 | Internal Med Progress Note ---
Medical - PN: Subj Patient information: Note initiated : 08/08/19 at 7:47 am Service Date, if different from initiated Date: [] Patient: Do Cantu a 59 y/o F admitted on 08/03/19 for Left shoulder and upper arm pain. Chief Complaint: [] Interval history: Ms. Cantu is a 59 year old F who fell around 10 AM this morning could not say why and woke up on the ground. Complaint of left humerus pain EMS was called patient brought into ED. History is obtained from chart as patient is a poor historian. Has a history of chronic alcoholism and likely suffers from dementia from this. She been admitted multiple times for alcohol withdrawal issues related to it. Work-up in ER revealed a nondisplaced spiral fracture of the surgical neck of left humerus. She had electrolyte abnormalities. She had incidentally found pulmonary emboli noted on CT. She is so weak she is unable to stand to get around in ED. She started having alcohol withdrawal in the ED as well. 08/04 Received some Ativan last night. Awake but appears a little bit drowsy. Answering questions. No new complaints 08/05 CIWA's 7 night. No other issues. Patient sitting up in bed with this nursing assistance today. No new complaints other than poor sleep. Discussed with her the need need for a SNF, and she seemed agreeable. 08/06 Patient elevated CIWA was last night and got benzodiazepine. Patient this morning with confusion. Still having alcoholic withdrawals. Will need placement. 08/07 Elevated CIWA again last night. Sitting up in chair eating breakfast today. Confusion. 08/08 Patient sitting out of bed already work with physical therapy. She required Librium several times last night. She denies any new complaints. Review of Systems: denies headache/fever/chills/nausea/vomiting/chest or abdominal pain/cough/dyspnea/diarrhea. Otherwise see above. - Constitutional Vitals: Vital Signs Temp Pulse Resp BP Pulse Ox 97.0 F 85 20 96/58 96 08/08/19 04:01 08/08/19 07:41 08/08/19 07:41 08/08/19 04:01 08/08/19 07:41 Period Temp Pulse Resp BP Sys/Manning Pulse Ox Last 24 Hr 97.0 F-98.6 F 77-100 12-24 86-130/58-90 91-99 Intake and Output 08/07/19 08/08/19 08/08/19 21:59 05:59 13:59 Intake Total 650 360 Output Total 280 480 Balance 370 -120 Weight 52.617 kg Intake & Output: Intake & Output 08/07/19 08/08/19 08/08/19 21:59 05:59 13:59 Intake Total 650 360 Output Total 280 480 Balance 370 -120 Weight 52.617 kg Intake: Nourishment/Supplement quantity 240 (ml) IV 50 Oral 360 360 Output: Urine Catheter Amount 280 480 Other: Meal Dinner Percent of Meal Consumed 100% Feeding Ability Independent Urine Appearance Clear Clear Uretheral (Alonso) Clear Clear Urine Color Bright Yellow Bright Yellow Uretheral (Alonso) Bright Yellow Bright Yellow Exam: General: Awake, No acute Distress Eyes/N/T: EOMI, Head/Neck: neck supple, CV: RRR, No murmurs, Pulm: Clear b/l, no wheezing/rhonchi/rales Abd: soft, nontender, +BS x4 Ext: no clubbing/cyanosis/edema Neuro: Awake,no focal deficits, moves all extremities, underlying dementia Skin: warm/dry Medical - PN: Obj Da - Labs CBC & Chem 7: 08/08/19 05:10 08/07/19 07:59 Labs: Abnormal Lab Results 08/08/19 08/07/19 08/07/19 05:10 07:59 07:59 RBC 2.64 L Hgb 7.9 L 8.5 L Hct 25.9 L 27.2 L MCV 103.0 H RDW 18.2 H Lymph # (Auto) 1.47 L Creatinine Glucose 106 H GGT 84 H Lactate Dehydrogenase Albumin 2.9 L 08/05/19 08/05/19 08:57 08:57 RBC 2.81 L Hgb 9.0 L Hct 28.1 L MCV RDW 17.3 H Lymph # (Auto) Creatinine 0.5 L Glucose 123 H GGT 82 H Lactate Dehydrogenase 252 H Albumin 2.9 L Meds: Medications Acetaminophen (Tylenol) 650 mg PO Q6HP PRN PRN Reason: PAIN/FEVER > 101 Hydrocodone Bitart/Acetaminophen ([place] 5/325mg) 1 tab PO Q4HP PRN PRN Reason: PAIN LEVEL 3-6 Last Admin: 08/08/19 05:25 Dose: 1 tab Documented by: Albuterol/Ipratropium (Duoneb) 3 ml NEB Q6HRT [facility] Last Admin: 08/08/19 07:40 Dose: 3 ml Documented by: Apixaban (Eliquis) 10 mg PO BID [facility] Stop: 08/10/19 09:01 Last Admin: 08/07/19 21:34 Dose: 10 mg Documented by: Apixaban (Eliquis) 5 mg PO BID [facility] Chlordiazepoxide HCl (Librium) 25 mg PO Q4HP PRN PRN Reason: Alcohol Withdrawal Last Admin: 08/07/19 23:31 Dose: 25 mg Documented by: Clonidine HCl (Catapres) 0.1 mg PO Q4HP PRN PRN Reason: ALC Last Admin: 08/06/19 19:20 Dose: 0.1 mg Documented by: Docusate Sodium (Colace) 100 mg PO BID [facility] Last Admin: 08/07/19 21:35 Dose: Not Given Documented by: Famotidine (Pepcid) 20 mg PO BID [facility] Last Admin: 08/07/19 21:34 Dose: 20 mg Documented by: Folic Acid (Folic Acid) 1 mg PO DAILY [facility] Last Admin: 08/07/19 09:15 Dose: 1 mg Documented by: Potassium Chloride 40 meq/ (Dextrose) 520 mls @ 130 mls/hr IV UD PRN PRN Reason: Potassium < 3 Magnesium Sulfate (Magnesium Sulfate) 2 gm in 50 mls @ 50 mls/hr IV UD PRN PRN Reason: Magnesium </= 1.6 Last Infusion: 08/07/19 14:05 Dose: Infused Documented by: Iron Carb/Multivit/[place]/Folic Acid (Multivitamin W/Minerals) 1 tab PO DAILY [facility] Last Admin: 08/07/19 09:15 Dose: 1 tab Documented by: Lorazepam (Ativan) 0 mg IV Q4HP PRN; Protocol PRN Reason: Alcohol Withdrawal Last Admin: 08/07/19 03:22 Dose: 2 mg Documented by: Morphine Sulfate (Morphine) 0 mg IV Q3HP PRN PRN Reason: Pain Nicotine (Nicoderm) 21 mg TOPICAL DAILY@1000 [facility] Last Admin: 08/07/19 11:13 Dose: 21 mg Documented by: Ondansetron HCl (Zofran) 4 mg IV Q4HP PRN PRN Reason: Nausea And Vomiting Polyethylene Glycol (Miralax) 17 gm PO DAILYP PRN PRN Reason: Constipation Potassium Chloride (Kdur) 40 meq PO UD PRN PRN Reason: Potssium is 3-3.5 Potassium Chloride (Kdur) 40 meq PO UD PRN PRN Reason: Potassium < 3 Senna (Senokot) 2 tab PO DAILYP PRN PRN Reason: Constipation Sodium Chloride (Saline Flush) 10 ml IV Q8 [facility] Last Admin: 08/08/19 05:25 Dose: 10 ml Documented by: Thiamine HCl (Vitamin B1) 100 mg PO DAILY [facility] Last Admin: 08/07/19 09:15 Dose: 100 mg Documented by: Medical - PN: A/P - Time Spent With Patient Total time spent is greater than 50% in coordination of care (as documented) at patient's floor/unit and/or counseling patient: - Narrative A/P Narrative: A: *Alcohol withdrawal/alcohol abuse/DT's: improving *Encephalopathy 2/2 above superimposed on underlying dementia: 2/2 above *Dementia, likely etoh related -CT brain moderate atrophy, also mild white matter ischemic changes *Volume depletion: Lactic acidosis resolved with IVF *Incidental/Asymptomatic pulmonary emboli b/l noted on CT: on room air *Electrolyte abnormality HypoMag/Hypophos: improved *Failure to thrive at home/generalized weakness/deconditioning/debility: *Protein calorie malnutrition: *Macrocytic anemia, chronic: dilution component *h/o PUD: *tobacco abuse: *Left Humerus nondisplaced spiral fracture of the surgical neck: Plan: -CIWA monitoring with prn benzodiazepines/folate/thiamine/MVI -Nutrition support/dietary consult -electrolyte replacement prn -Eliquis -PT/OT -Alcohol/smoking cessation counseling -continue shoulder immobilizer, f/u with Ortho outpatient -Discharge planning per case management, likely needs SNF for inability to care for self at home -ppx: eliquis/ppi Medical - PN: Qual - VTE Deep Vein Thrombosis/Pulmonary Embolism Present on Admission: No
[2019-08-08] MEDS: DOCUSATE SODIUM 100 MG CAPSULE PO SCH ×2 (09:42→20:07)
[2019-08-08] MEDS: NICOTINE 21 MG PATCH TOPICAL SCH (09:47)
[2019-08-08] MEDS: THIAMINE 100 MG TABLET PO SCH (09:47)
[2019-08-08] MEDS: chlordiazePOXIDE 25 MG CAPSULE PO PRN ×3 (09:47→22:58)
[2019-08-08] MEDS: MULTIVIT,THER IRON,CA,FA & MIN 1 TABLET PO SCH (09:48)
[2019-08-08] MEDS: FOLIC ACID 1 MG TABLET PO SCH (09:48)
[2019-08-08] MEDS: FAMOTIDINE 20 MG TABLET PO SCH ×2 (09:56→20:07)
[2019-08-08] MEDS: APIXABAN 5 MG TABLET PO SCH ×2 (09:56→20:07)
[2019-08-09] MEDS: IPRATROPIUM/ALBUTEROL 3 ML AMPUL.NEB NEB SCH ×4 (01:50→19:16)
[2019-08-09] MEDS: 0.9 % SODIUM CHLORIDE 10 ML SYRINGE IV SCH ×3 (05:52→20:43)
[2019-08-09] MEDS: NICOTINE 21 MG PATCH TOPICAL SCH (08:39)
[2019-08-09] MEDS: FOLIC ACID 1 MG TABLET PO SCH (08:41)
[2019-08-09] MEDS: THIAMINE 100 MG TABLET PO SCH (08:41)
[2019-08-09] MEDS: MULTIVIT,THER IRON,CA,FA & MIN 1 TABLET PO SCH (08:41)
[2019-08-09] MEDS: chlordiazePOXIDE 25 MG CAPSULE PO PRN ×3 (08:41→21:35)
[2019-08-09] MEDS: HYDROcodone/APAP 5/325MG TABLET PO PRN ×3 (08:41→21:34)
[2019-08-09] MEDS: DOCUSATE SODIUM 100 MG CAPSULE PO SCH ×2 (08:41→20:43)
[2019-08-09] MEDS: APIXABAN 5 MG TABLET PO SCH (08:45)
[2019-08-09] MEDS: FAMOTIDINE 20 MG TABLET PO SCH ×2 (08:45→20:42)
--- NOTE | 2019-08-09 11:58 | Internal Med Progress Note ---
Medical - PN: Subj Patient information: Note initiated : 08/09/19 at 11:56 am Service Date, if different from initiated Date: [] Patient: Do Cantu 59 y/o F admitted on 08/03/19 for Left shoulder and upper arm pain. Chief Complaint: [] Interval history: pt reports arm pain. She thinks she is at [facility] in [place] doesnt know date. Says she drinks Dominican Mist fifth every 3 days. She lives alone and admits to being unsteady on feet. Doesnt recall her upper arm fracture event. Im told she lives alone but has a self pay caregiver. Pt earns too much pension for medicaid and therefore uninsured and declines to obtain other insurance. not placeable nor dischargeable at this time. - Constitutional Vitals: Vital Signs Temp Pulse Resp BP Pulse Ox 96.8 F L 88 16 93/64 99 08/09/19 08:01 08/09/19 07:28 08/09/19 11:01 08/09/19 11:01 08/09/19 11:01 Period Temp Pulse Resp BP Sys/Manning Pulse Ox Last 24 Hr 96.8 F-98.1 F 84-102 13-24 79-145/51-129 94-100 Intake and Output 08/08/19 08/09/19 08/09/19 21:59 05:59 13:59 Intake Total 660 60 Output Total 730 520 Balance -730 140 60 Weight 116 lb 9.6 oz Intake & Output: Intake & Output 08/08/19 08/09/19 08/09/19 21:59 05:59 13:59 Intake Total 660 60 Output Total 730 520 Balance -730 140 60 Weight 116 lb 9.6 oz Intake: Oral 660 60 Output: Urine Catheter Amount 730 520 Other: Meal Dinner Nourishment/Supplement Breakfast Percent of Meal Consumed 75% 25% 25% Feeding Ability Assist with Tray Set Up Assist with Tray Set Up Urine Appearance Clear Clear Clear Uretheral (Alonso) Clear Clear Clear Urine Color Bright Yellow Bright Yellow Dark Yellow Uretheral (Alonso) Bright Yellow Bright Yellow Dark Yellow Urine Odor Strong Normal Normal Uretheral (Alonso) Strong Normal - Respiratory Respiratory exam: Present: normal respiratory exam - Cardiovascular Cardiovascular exam: Present: normal rate and rhythm - Extremities Exam Extremities exam: Absent: calf tenderness, pedal edema - Neurological Exam Neurological exam: Present: altered (lethargic slowed responses.). Absent: oriented X3 (oriented to person and hospital and [place], no correct hospital date or situation.) - Psychiatric Psychiatric exam: Present: depressed, flat affect - Skin Skin exam: Present: dry, warm Medical - PN: Obj Da - Labs CBC & Chem 7: 08/08/19 05:10 08/07/19 07:59 Labs: Abnormal Lab Results 08/08/19 08/07/19 08/07/19 05:10 07:59 07:59 RBC 2.64 L Hgb 7.9 L 8.5 L Hct 25.9 L 27.2 L MCV 103.0 H RDW 18.2 H Lymph # (Auto) 1.47 L Glucose 106 H GGT 84 H Albumin 2.9 L Meds: Medications Acetaminophen (Tylenol) 650 mg PO Q6HP PRN PRN Reason: PAIN/FEVER > 101 Hydrocodone Bitart/Acetaminophen ([place] 5/325mg) 1 tab PO Q4HP PRN PRN Reason: PAIN LEVEL 3-6 Last Admin: 08/09/19 08:41 Dose: 1 tab Documented by: Albuterol/Ipratropium (Duoneb) 3 ml NEB Q6HRT [facility] Last Admin: 08/09/19 07:27 Dose: 3 ml Documented by: Apixaban (Eliquis) 2.5 mg PO BID [facility] Chlordiazepoxide HCl (Librium) 25 mg PO Q4HP PRN PRN Reason: Alcohol Withdrawal Last Admin: 08/09/19 08:41 Dose: 25 mg Documented by: Clonidine HCl (Catapres) 0.1 mg PO Q4HP PRN PRN Reason: ALC Last Admin: 08/06/19 19:20 Dose: 0.1 mg Documented by: Docusate Sodium (Colace) 100 mg PO BID [facility] Last Admin: 08/09/19 08:41 Dose: 100 mg Documented by: Famotidine (Pepcid) 20 mg PO BID [facility] Last Admin: 08/09/19 08:45 Dose: 20 mg Documented by: Folic Acid (Folic Acid) 1 mg PO DAILY [facility] Last Admin: 08/09/19 08:41 Dose: 1 mg Documented by: Potassium Chloride 40 meq/ (Dextrose) 520 mls @ 130 mls/hr IV UD PRN PRN Reason: Potassium < 3 Magnesium Sulfate (Magnesium Sulfate) 2 gm in 50 mls @ 50 mls/hr IV UD PRN PRN Reason: Magnesium </= 1.6 Last Infusion: 08/07/19 14:05 Dose: Infused Documented by: Iron Carb/Multivit/Waste Water Or Water Plant Operator/Folic Acid (Multivitamin W/Minerals) 1 tab PO DAILY [facility] Last Admin: 08/09/19 08:41 Dose: 1 tab Documented by: Iron Carb/Multivit/Waste Water Or Water Plant Operator/Folic Acid (Multivitamin W/Minerals) 1 tab PO DAILY S Lorazepam (Ativan) 0 mg IV Q4HP PRN; Protocol PRN Reason: Alcohol Withdrawal Last Admin: 08/07/19 03:22 Dose: 2 mg Documented by: Magnesium Oxide (Magnesium Oxide) 400 mg PO DAILY [facility] Morphine Sulfate (Morphine) 0 mg IV Q3HP PRN PRN Reason: Pain Nicotine (Nicoderm) 21 mg TOPICAL DAILY@1000 [facility] Last Admin: 08/09/19 08:39 Dose: 21 mg Documented by: Ondansetron HCl (Zofran) 4 mg IV Q4HP PRN PRN Reason: Nausea And Vomiting Polyethylene Glycol (Miralax) 17 gm PO DAILYP PRN PRN Reason: Constipation Potassium Chloride (Kdur) 40 meq PO UD PRN PRN Reason: Potssium is 3-3.5 Potassium Chloride (Kdur) 40 meq PO UD PRN PRN Reason: Potassium < 3 Senna (Senokot) 2 tab PO DAILYP PRN PRN Reason: Constipation Sodium Chloride (Saline Flush) 10 ml IV Q8 [facility] Last Admin: 08/09/19 05:52 Dose: 10 ml Documented by: Thiamine HCl (Vitamin B1) 100 mg PO DAILY [facility] Last Admin: 08/09/19 08:41 Dose: 100 mg Documented by: Medical - PN: A/P - Time Spent With Patient Total time spent is greater than 50% in coordination of care (as documented) at patient's floor/unit and/or counseling patient: Greater than 35 minutes (1) Hypotension Problem details: poor nutritional status with alcohol abuse chronic malnutrition and chronic intoxication. will check cortisol and tsh looking for hormone insufficiency. clonidine is currently prn and will discontinue due to extreme lethargy. Status: Acute Current Visit: Yes (2) Hypomagnesemia Problem details: resume oral replacement Status: Acute Current Visit: Yes (3) Left humeral fracture Status: Acute Assessment and plan: non displaced and not requiring surgery. continue sling. Will need improved mentation for safe discharge. Current Visit: Yes (4) Pulmonary emboli Status: Acute Assessment and plan: chronic and therefore will treat less aggressive with 2.5 mg apixaban bid due to malnutrition and underweight patient. Current Visit: Yes (5) Alcohol withdrawal syndrome Problem details: mild and well controlled at this time Status: Chronic Assessment and plan: cont prn libirum. will add MVI folate and iron. check b12 level. Current Visit: Yes (6) Alcohol abuse Problem details: pt not willing to quit. will further primary counselor. Status: Chronic Current Visit: No Medical - PN: Qual - VTE Deep Vein Thrombosis/Pulmonary Embolism Present on Admission: No
[2019-08-09 13:44] LABS: Iron 94 mcg/dl (37-145); TIBC Calculation 297 ug/dl (228-428); Thyroid Stimulating Hormone 5.04 uIU/ml (0.27-5.01); Transferrin % Saturation 31 % (15-50)
[2019-08-10] MEDS: IPRATROPIUM/ALBUTEROL 3 ML AMPUL.NEB NEB SCH ×4 (01:58→19:31)
[2019-08-10] MEDS: 0.9 % SODIUM CHLORIDE 10 ML SYRINGE IV SCH ×3 (05:40→23:14)
[2019-08-10 07:22] LABS: Basophils # (Auto) 0.06 K/mcL (0.00-0.30); Eosinophils # (Auto) 0.18 K/mcL (0.00-0.70); Granulocytes % (Auto) 63.6 % (38.0-78.0); Hematocrit 26.3 % (34.1-44.9); Hemoglobin 8.3 g/dL (11.2-15.7); Lymphocytes # (Auto) 1.21 K/mcL (1.50-4.80); Lymphocytes % (Auto) 20.1 % (15.5-49.0); Mean Cell Volume 101.2 fL (80.0-100.0); Mean Corpuscular HGB Conc 31.6 g/dL (31.0-36.0); Mean Platelet Volume 9.6 fL (7.4-10.4); Monocytes # (Auto) 0.74 K/mcL (0.10-0.90); Monocytes % (Auto) 12.3 % (1.0-12.0); Platelet Count 325 K/mcL (140-440); Red Cell Distribution Width 18.2 % (11.5-14.5)
[2019-08-10 08:06] LABS: ALT/SGPT 10 U/l (0-40); AST/SGOT 17 U/l (0-37); Albumin 2.9 gm/dL (3.2-5.2); Alkaline Phosphatase 79 U/L (39-117); Bilirubin,Direct < 0.2 mg/dL (0.0-0.3); Bilirubin,Total 0.2 mg/dL (0.0-1.0); Blood Urea Nitrogen 15 mg/dl (6-20); Calcium 9.6 mg/dl (8.6-10.4); Carbon Dioxide 23 mmol/L (22-30); Chloride 103 mmol/L (96-108); Globulin 2.8 gm/dL (2.2-3.7); Glomerular Filtration Rate 94; Glucose 129 mg/dL (70-105); Lactate Dehydrogenase 182 U/L (94-250); Phosphorous 5.4 mg/dL (2.7-4.5); Triglycerides 151 mg/dl (<150); Uric Acid 4.9 mg/dL (2.5-8.0)
[2019-08-10] MEDS: DOCUSATE SODIUM 100 MG CAPSULE PO SCH ×2 (08:40→23:14)
[2019-08-10] MEDS: THIAMINE 100 MG TABLET PO SCH (08:40)
[2019-08-10] MEDS: FAMOTIDINE 20 MG TABLET PO SCH ×2 (08:40→23:14)
[2019-08-10] MEDS: MAGNESIUM OXIDE 400 MG TABLET PO SCH (08:40)
[2019-08-10] MEDS: APIXABAN 2.5 MG TABLET PO SCH ×2 (08:40→23:14)
[2019-08-10] MEDS: FOLIC ACID 1 MG TABLET PO SCH (08:40)
[2019-08-10] MEDS: MULTIVIT,THER IRON,CA,FA & MIN 1 TABLET PO SCH (08:41)
[2019-08-10] MEDS ORDERED: MULTIVIT,THER IRON,CA,FA & MIN 1 TABLET PO SCH (09:00)
[2019-08-10] MEDS: HYDROCORTISONE SOD SUCC 100 MG VIAL IV SCH ×3 (10:56→18:37)
[2019-08-10] MEDS: NICOTINE 21 MG PATCH TOPICAL SCH (10:56)
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
[2019-08-10] MEDS: HYDROcodone/APAP 5/325MG TABLET PO PRN (18:35)
[2019-08-10] MEDS: chlordiazePOXIDE 5 MG CAPSULE PO PRN (19:16)
[2019-08-10] MEDS ORDERED: APIXABAN 5 MG TABLET PO SCH (21:00)
[2019-08-11] MEDS: HYDROCORTISONE SOD SUCC 100 MG VIAL IV SCH ×4 (00:29→17:44)
[2019-08-11] MEDS: IPRATROPIUM/ALBUTEROL 3 ML AMPUL.NEB NEB SCH ×4 (00:29→18:48)
[2019-08-11] MEDS: HYDROcodone/APAP 5/325MG TABLET PO PRN ×4 (00:29→22:29)
[2019-08-11] MEDS: chlordiazePOXIDE 5 MG CAPSULE PO PRN ×4 (02:38→23:03)
[2019-08-11] MEDS: ACETAMINOPHEN 325 MG TABLET PO PRN (02:38)
[2019-08-11] MEDS: 0.9 % SODIUM CHLORIDE 10 ML SYRINGE IV SCH ×3 (05:33→21:31)
[2019-08-11 06:44] LABS: Basophils # (Auto) 0.03 K/mcL (0.00-0.30); Basophils % (Auto) 0.4 % (0.0-2.0); Eosinophils # (Auto) 0 K/mcL (0.00-0.70); Eosinophils % (Auto) 0 % (0.0-7.0); Granulocytes % (Auto) 83.4 % (38.0-78.0); Hematocrit 27.4 % (34.1-44.9); Hemoglobin 8.5 g/dL (11.2-15.7); Lymphocytes # (Auto) 0.78 K/mcL (1.50-4.80); Lymphocytes % (Auto) 9.9 % (15.5-49.0); Mean Cell Volume 101.1 fL (80.0-100.0); Mean Platelet Volume 9.9 fL (7.4-10.4); Monocytes % (Auto) 6.3 % (1.0-12.0); Platelet Count 426 K/mcL (140-440); RBC 2.71 M/mcL (3.59-5.38); Red Cell Distribution Width 18.1 % (11.5-14.5); WBC 7.9 K/mcL (4.50-11.00)
[2019-08-11 07:44] LABS: ALT/SGPT 11 U/l (0-40); AST/SGOT 15 U/l (0-37); Albumin 3.4 gm/dL (3.2-5.2); Alkaline Phosphatase 89 U/L (39-117); Bilirubin,Direct < 0.2 mg/dL (0.0-0.3); Bilirubin,Total 0.2 mg/dL (0.0-1.0); Blood Urea Nitrogen 14 mg/dl (6-20); Calcium 9.7 mg/dl (8.6-10.4); Carbon Dioxide 21 mmol/L (22-30); Chloride 96 mmol/L (96-108); Globulin 3.3 gm/dL (2.2-3.7); Glomerular Filtration Rate 94; Glucose 206 mg/dL (70-105); Lactate Dehydrogenase 225 U/L (94-250); Phosphorous 3.9 mg/dL (2.7-4.5); Triglycerides 60 mg/dl (<150); Uric Acid 3.9 mg/dL (2.5-8.0)
[2019-08-11] MEDS: MAGNESIUM OXIDE 400 MG TABLET PO SCH (09:50)
[2019-08-11] MEDS: THIAMINE 100 MG TABLET PO SCH (09:50)
[2019-08-11] MEDS: MULTIVIT,THER IRON,CA,FA & MIN 1 TABLET PO SCH (09:50)
[2019-08-11] MEDS: DOCUSATE SODIUM 100 MG CAPSULE PO SCH ×2 (09:50→21:31)
[2019-08-11] MEDS: NICOTINE 21 MG PATCH TOPICAL SCH (09:50)
[2019-08-11] MEDS: FOLIC ACID 1 MG TABLET PO SCH (09:50)
--- NOTE | 2019-08-11 09:55 | Internal Med Progress Note ---
Medical - PN: Subj Patient information: Note initiated : 08/11/19 at 9:52 am Service Date, if different from initiated Date: [] Patient: Do Cantu 59 y/o F admitted on 08/03/19 for Left shoulder and upper arm pain. Chief Complaint: [] Interval history: 59 yo female with alcoholic dementia came in with left prox humerus fracture and alcohol withdrawal. She is well controlled on DTs but very slowed mentation and disoriented. oriented to person but thinks she is in her home in a chair. unable to reorientate. Pt did eat better after steroids and more alert but still disoriented. Pt with a tremor but not agitated. - Constitutional Vitals: Vital Signs Temp Pulse Resp BP Pulse Ox 97.6 F 99 H 16 130/81 95 08/11/19 04:01 08/10/19 19:32 08/11/19 04:01 08/11/19 04:01 08/11/19 04:01 Period Temp Pulse Resp BP Sys/Manning Pulse Ox Last 24 Hr 97.6 F-98.9 F 94-99 12-23 94-139/55-84 92-99 Intake and Output 08/10/19 08/11/19 08/11/19 21:59 05:59 13:59 Intake Total 100 360 Output Total 1 201 Balance 99 159 Weight 116 lb 9.6 oz Intake & Output: Intake & Output 08/10/19 08/11/19 08/11/19 21:59 05:59 13:59 Intake Total 100 360 Output Total 1 201 Balance 99 159 Weight 116 lb 9.6 oz Intake: Oral 100 360 Output: Void Amount 200 # of times incontinent of urine 1 1 Other: Meal Dinner Gram Crackers- milk Percent of Meal Consumed 100% 75% Feeding Ability Needs Supervision Assist with Tray Set Up Urine Color Dark Yellow Urine Odor Strong Stool Size Large Stool Color Brown Stool Consistency Soft General appearance: cooperative, disheveled, thin - Respiratory Respiratory exam: Present: normal respiratory exam - Cardiovascular Cardiovascular exam: Present: normal rate and rhythm - GI/Abdominal GI/Abdominal exam: Present: normal bowel sounds. Absent: tenderness - Extremities Exam Extremities exam: Absent: pedal edema - Skin Skin exam: Present: dry, warm Medical - PN: Obj Da - Labs CBC & Chem 7: 08/11/19 05:22 08/11/19 05:22 Labs: Abnormal Lab Results 08/11/19 08/11/19 08/10/19 05:22 05:22 06:49 RBC 2.71 L Hgb 8.5 L Hct 27.4 L MCV 101.1 H RDW 18.1 H Gran % 83.4 H Lymph % (Auto) 9.9 L [place] % (Auto) Lymph # (Auto) 0.78 L Carbon Dioxide 21 L Glucose 206 H 129 H Phosphorus 5.4 H GGT 77 H 71 H Ammonia Total Protein 5.7 L Albumin 2.9 L Triglycerides 151 H TSH 08/10/19 08/09/19 08/09/19 06:49 12:27 12:26 RBC 2.60 L Hgb 8.3 L Hct 26.3 L MCV 101.2 H RDW 18.2 H Gran % Lymph % (Auto) [place] % (Auto) 12.3 H Lymph # (Auto) 1.21 L Carbon Dioxide Glucose Phosphorus GGT Ammonia 10 L Total Protein Albumin Triglycerides TSH 5.04 H Meds: Medications Acetaminophen (Tylenol) 650 mg PO Q6HP PRN PRN Reason: PAIN/FEVER > 101 Last Admin: 08/11/19 02:38 Dose: 650 mg Documented by: Hydrocodone Bitart/Acetaminophen ([place] 5/325mg) 1 tab PO Q4HP PRN PRN Reason: PAIN LEVEL 3-6 Last Admin: 08/11/19 00:29 Dose: 1 tab Documented by: Albuterol/Ipratropium (Duoneb) 3 ml NEB Q6HRT [facility] Last Admin: 08/11/19 09:20 Dose: Not Given Documented by: Apixaban (Eliquis) 2.5 mg PO BID [facility] Last Admin: 08/10/19 23:14 Dose: 2.5 mg Documented by: Chlordiazepoxide HCl (Librium) 10 mg PO QIDP PRN PRN Reason: Alcohol Withdrawal Last Admin: 08/11/19 02:38 Dose: 10 mg Documented by: Docusate Sodium (Colace) 100 mg PO BID [facility] Last Admin: 08/11/19 09:50 Dose: 100 mg Documented by: Famotidine (Pepcid) 20 mg PO BID [facility] Last Admin: 08/10/19 23:14 Dose: 20 mg Documented by: Folic Acid (Folic Acid) 1 mg PO DAILY [facility] Last Admin: 08/11/19 09:50 Dose: 1 mg Documented by: Hydrocortisone Sodium Succinate (Solu-Cortef) 50 mg IV Q6 [facility] Stop: 08/12/19 00:01 Last Admin: 08/11/19 05:33 Dose: 50 mg Documented by: Iron Carb/Multivit/Mathematics Improvement Teacher/Folic Acid (Multivitamin W/Minerals) 1 tab PO DAILY [facility] Last Admin: 08/11/19 09:50 Dose: 1 tab Documented by: Magnesium Oxide (Magnesium Oxide) 400 mg PO DAILY [facility] Last Admin: 08/11/19 09:50 Dose: 400 mg Documented by: Nicotine (Nicoderm) 21 mg TOPICAL DAILY@1000 [facility] Last Admin: 08/11/19 09:50 Dose: 21 mg Documented by: Ondansetron HCl (Zofran) 4 mg IV Q4HP PRN PRN Reason: Nausea And Vomiting Polyethylene Glycol (Miralax) 17 gm PO DAILYP PRN PRN Reason: Constipation Last Admin: 08/09/19 14:51 Dose: 17 gm Documented by: Senna (Senokot) 2 tab PO DAILYP PRN PRN Reason: Constipation Last Admin: 08/09/19 14:59 Dose: 2 tab Documented by: Sodium Chloride (Saline Flush) 10 ml IV Q8 [facility] Last Admin: 08/11/19 05:33 Dose: 10 ml Documented by: Thiamine HCl (Vitamin B1) 100 mg PO DAILY [facility] Last Admin: 08/11/19 09:50 Dose: 100 mg Documented by: Medical - PN: A/P - Time Spent With Patient Total time spent is greater than 50% in coordination of care (as documented) at patient's floor/unit and/or counseling patient: Greater than 35 minutes (1) Alcoholic dementia Problem details: pt with very poor functional capacity for ADLs at this time. No safe discharge. NO insurance benefit. Cont steroids, CIWA, MVI, thiamine folate and therapy. Transfer to medical floor Status: Acute Assessment and plan: increase activity as tolerated. reorientate. need to find a safe discharge Current Visit: Yes (2) Hypotension Problem details: poor nutritional status with alcohol abuse chronic malnutrition and chronic intoxication. will check cortisol and tsh looking for hormone insufficiency. cortisol was 7. inappropriately low in this cachectic malnourished pt. Will start stress dose steroids. TSH 5.6. no replacement for now. bp and appetitie normalized with steroids continue. Status: Acute Assessment and plan: cont hydrocortisone 50 mg IV q6 Current Visit: Yes (3) Hypomagnesemia Problem details: resume oral replacement Status: Acute Current Visit: Yes (4) Left humeral fracture Status: Acute Assessment and plan: non displaced and not requiring surgery. continue sling. Will need improved mentation for safe discharge. Current Visit: Yes (5) Pulmonary emboli Status: Acute Assessment and plan: chronic and therefore will treat less aggressive with 2.5 mg apixaban bid due to malnutrition and underweight patient. Current Visit: Yes (6) Alcohol withdrawal syndrome Problem details: mild and well controlled at this time Status: Chronic Assessment and plan: cont prn libirum. will add MVI folate and iron. check b12 level. SLUMS score 15 Current Visit: Yes (7) Alcohol abuse Problem details: pt not willing to quit. will further admitting counselor. Status: Chronic Current Visit: No Medical - PN: Qual - VTE Deep Vein Thrombosis/Pulmonary Embolism Present on Admission: No
[2019-08-11] MEDS: APIXABAN 2.5 MG TABLET PO SCH ×2 (10:09→21:31)
[2019-08-11] MEDS: FAMOTIDINE 20 MG TABLET PO SCH ×2 (10:09→21:31)
[2019-08-11] MEDS ORDERED: SENNOSIDES 1 TABLET PO PRN (12:17)
[2019-08-11] MEDS ORDERED: ONDANSETRON 4 MG/2 ML VIAL IV PRN (12:17)
[2019-08-11] MEDS ORDERED: POLYETHYLENE GLYCOL 3350 17 GM PACKET PO PRN (12:17)
[2019-08-12] MEDS: HYDROCORTISONE SOD SUCC 100 MG VIAL IV SCH (00:51)
[2019-08-12] MEDS: IPRATROPIUM/ALBUTEROL 3 ML AMPUL.NEB NEB SCH ×4 (00:51→19:54)
[2019-08-12] MEDS: 0.9 % SODIUM CHLORIDE 10 ML SYRINGE IV SCH ×2 (05:45→14:14)
[2019-08-12] MEDS: DOCUSATE SODIUM 100 MG CAPSULE PO SCH (08:03)
[2019-08-12] MEDS: MULTIVIT,THER IRON,CA,FA & MIN 1 TABLET PO SCH (08:03)
[2019-08-12] MEDS: FOLIC ACID 1 MG TABLET PO SCH (08:03)
[2019-08-12] MEDS: MAGNESIUM OXIDE 400 MG TABLET PO SCH (08:03)
[2019-08-12] MEDS: HYDROcodone/APAP 5/325MG TABLET PO PRN ×2 (08:04→15:07)
[2019-08-12] MEDS: THIAMINE 100 MG TABLET PO SCH (08:04)
[2019-08-12] MEDS: APIXABAN 2.5 MG TABLET PO SCH (08:26)
[2019-08-12] MEDS: FAMOTIDINE 20 MG TABLET PO SCH (08:26)
[2019-08-12] MEDS: chlordiazePOXIDE 5 MG CAPSULE PO PRN (08:26)
[2019-08-12] MEDS ORDERED: NICOTINE 21 MG PATCH TOPICAL SCH (10:00)
[2019-08-12 10:03] LABS: Amphetamine Screen,Urine NONE DETECTED (NONDETECTED); Barbiturate Screen,Urine NONE DETECTED (NONDETECTED); Benzodiazepines Screen,Urine SUSPECT POSITIVE (NONDETECTED); Cannabinoid Screen,Urine NONE DETECTED (NONDETECTED); Cocaine Screen,Urine NONE DETECTED (NONDETECTED); Opiate Screen,Urine NONE DETECTED (NONDETECTED); Oxycodone, Urine Screen NONE DETECTED (NONDETECTED); Phencyclidine Screen,Urine NONE DETECTED (NONDETECTED)
[2019-08-12] MEDS ORDERED: NICOTINE 14 MG PATCH TOPICAL ONE (15:19)
--- NOTE | 2019-08-12 15:24 | Internal Med Progress Note ---
Medical - PN: Subj Patient information: Note initiated : 08/12/19 at 3:21 pm Service Date, if different from initiated Date: [] Patient: Do Cantu 59 y/o F admitted on 08/03/19 for Left shoulder and upper arm pain. Chief Complaint: [] Interval history: Alcoholic patient admitted with left proximal humerus fracture and alcohol intoxication went through withdrawal. She has been admitted and treated in the hospital complicated by withdrawal on many occasions. This visit she is so disoriented that a safe discharge is not possible. She does not have family that would like to be involved. Additionally she has refused to have social work nurse contact her family. She has a neighbor who characterizes himself as a caregiver but he has been bringing her alcohol with her debit card and there is suspicion that the monetary gain of having her finances is causing a conflict. The patient does not know which town she is and she think she is in [facility]. She did note that she is in a hospital. She says she is in the EMD which she is says the emergency medical defibrillator which is a shocking room. Patient has significant tremor but no other - Constitutional Vitals: Vital Signs Temp Pulse Resp BP Pulse Ox 97.3 F 100 H 20 129/85 98 08/12/19 12:00 08/12/19 12:00 08/12/19 12:00 08/12/19 12:00 08/12/19 12:00 Period Temp Pulse Resp BP Sys/Manning Pulse Ox Last 24 Hr 97.3 F-98.2 F 75-108 16-22 121-156/73-91 95-100 Intake and Output 08/12/19 08/12/19 08/12/19 05:59 13:59 21:59 Intake Total 200 360 Output Total 2 300 Balance 198 60 Intake & Output: Intake & Output 08/12/19 08/12/19 08/12/19 05:59 13:59 21:59 Intake Total 200 360 Output Total 2 300 Balance 198 60 Intake: Oral 200 360 Output: Void Amount 300 # of times incontinent of urine 2 Other: Meal Breakfast Percent of Meal Consumed 50% - Additional findings Additional findings: General well-developed cachectic female in no acute cardiopulmonary distress. She is awake mildly lethargic. She is disoriented to place and date. She does know her name. She tells me that she is 49 years old but feels like she is 59. I told her that she actually is 59. She says that she did stick her tongue out at me but I might see more than I want to see CV regular rate and rhythm Lungs clear to auscultation bilaterally Abdomen positive bowel sounds soft Hand she has tremor both at rest and with intention. Skin warm and dry Medical - PN: Obj Da - Labs CBC & Chem 7: 08/11/19 05:22 08/11/19 05:22 Labs: Abnormal Lab Results 08/12/19 08/11/19 08/11/19 08:48 05:22 05:22 RBC 2.71 L Hgb 8.5 L Hct 27.4 L MCV 101.1 H RDW 18.1 H Gran % 83.4 H Lymph % (Auto) 9.9 L Gem % (Auto) Lymph # (Auto) 0.78 L Carbon Dioxide 21 L Glucose 206 H Phosphorus GGT 77 H Total Protein Albumin Triglycerides U Benzodiazepines Scrn Suspect positive A 08/10/19 08/10/19 06:49 06:49 RBC 2.60 L Hgb 8.3 L Hct 26.3 L MCV 101.2 H RDW 18.2 H Gran % Lymph % (Auto) Gem % (Auto) 12.3 H Lymph # (Auto) 1.21 L Carbon Dioxide Glucose 129 H Phosphorus 5.4 H GGT 71 H Total Protein 5.7 L Albumin 2.9 L Triglycerides 151 H U Benzodiazepines Scrn Meds: Medications Acetaminophen (Tylenol) 650 mg PO Q6HP PRN PRN Reason: PAIN/FEVER > 101 Hydrocodone Bitart/Acetaminophen ([place] 5/325mg) 1 tab PO Q4HP PRN PRN Reason: PAIN LEVEL 3-6 Last Admin: 08/12/19 15:07 Dose: 1 tab Documented by: Albuterol/Ipratropium (Duoneb) 3 ml NEB Q6HRT [facility] Last Admin: 08/12/19 13:41 Dose: 3 ml Documented by: Apixaban (Eliquis) 2.5 mg PO BID [facility] Last Admin: 08/12/19 08:26 Dose: 2.5 mg Documented by: Chlordiazepoxide HCl (Librium) 10 mg PO QIDP PRN PRN Reason: Alcohol Withdrawal Last Admin: 08/12/19 08:26 Dose: 10 mg Documented by: Docusate Sodium (Colace) 100 mg PO BID [facility] Last Admin: 08/12/19 08:03 Dose: 100 mg Documented by: Famotidine (Pepcid) 20 mg PO BID [facility] Last Admin: 08/12/19 08:26 Dose: 20 mg Documented by: Folic Acid (Folic Acid) 1 mg PO DAILY [facility] Last Admin: 08/12/19 08:03 Dose: 1 mg Documented by: Iron Carb/Multivit/Attorney/Folic Acid (Multivitamin W/Minerals) 1 tab PO DAILY [facility] Last Admin: 08/12/19 08:03 Dose: 1 tab Documented by: Magnesium Oxide (Magnesium Oxide) 400 mg PO DAILY [facility] Last Admin: 08/12/19 08:03 Dose: 400 mg Documented by: Nicotine (Nicoderm) 21 mg TOPICAL DAILY@1000 [facility] Stop: 08/13/19 07:00 Last Admin: 08/12/19 10:34 Dose: 21 mg Documented by: Nicotine (Nicoderm) 14 mg TOPICAL ONCE ONE Stop: 08/13/19 08:01 Ondansetron HCl (Zofran) 4 mg IV Q4HP PRN PRN Reason: Nausea And Vomiting Polyethylene Glycol (Miralax) 17 gm PO DAILYP PRN PRN Reason: Constipation Quetiapine Fumarate (Seroquel) 25 mg PO [facility] Senna (Senokot) 2 tab PO DAILYP PRN PRN Reason: Constipation Sodium Chloride (Saline Flush) 10 ml IV Q8 [facility] Last Admin: 08/12/19 14:14 Dose: 10 ml Documented by: Thiamine HCl (Vitamin B1) 100 mg PO DAILY [facility] Last Admin: 08/12/19 08:04 Dose: 100 mg Documented by: Medical - PN: A/P - Time Spent With Patient Total time spent is greater than 50% in coordination of care (as documented) at patient's floor/unit and/or counseling patient: 25 - 35 minutes (1) Alcoholic dementia Problem details: pt with very poor functional capacity for ADLs at this time. No safe discharge. NO insurance benefit. Cont steroids, CIWA, MVI, thiamine folate and therapy. Transfer to medical floor Status: Acute Assessment and plan: increase activity as tolerated. reorientate. need to find a safe discharge Patient has not oriented despite being finished with her withdrawals and being orientated daily. She is not able to make medical and financial decisions for herself safely. I recommend that she have a court appointed guardian if an appropriate family member is unable to be enlisted Current Visit: Yes (2) Hypotension Problem details: poor nutritional status with alcohol abuse chronic malnutrition and chronic intoxication. will check cortisol and tsh looking for hormone insufficiency. cortisol was 7. inappropriately low in this cachectic malnourished pt. Will start stress dose steroids. TSH 5.6. no replacement for now. bp and appetitie normalized with steroids continue. Status: Acute Assessment and plan: cont hydrocortisone 50 mg IV q6 Current Visit: Yes (3) Hypomagnesemia Problem details: resume oral replacement Status: Acute Current Visit: Yes (4) Left humeral fracture Status: Acute Assessment and plan: non displaced and not requiring surgery. continue sling. Will need improved mentation for safe discharge. Current Visit: Yes (5) Pulmonary emboli Status: Acute Assessment and plan: chronic and therefore will treat less aggressive with 2.5 mg apixaban bid due to malnutrition and underweight patient. Current Visit: Yes (6) Alcohol withdrawal syndrome Problem details: mild and well controlled at this time Status: Chronic Assessment and plan: cont prn libirum. will add MVI folate and iron. check b12 level. SLUMS score 15 For her confusion I am going to try low-dose Seroquel. Also considering propranolol for her tremor but will use 1 medication at a time Current Visit: Yes (7) Alcohol abuse Problem details: pt not willing to quit. will further prenatal genetic counselor. Status: Chronic Current Visit: No Medical - PN: Qual - VTE Deep Vein Thrombosis/Pulmonary Embolism Present on Admission: No
[2019-08-13] MEDS: DOCUSATE SODIUM 100 MG CAPSULE PO SCH ×3 (01:17→19:52)
[2019-08-13] MEDS: FAMOTIDINE 20 MG TABLET PO SCH ×3 (01:17→19:52)
[2019-08-13] MEDS: APIXABAN 2.5 MG TABLET PO SCH ×3 (01:17→19:52)
[2019-08-13] MEDS: IPRATROPIUM/ALBUTEROL 3 ML AMPUL.NEB NEB SCH ×2 (01:18→07:30)
[2019-08-13] MEDS: QUEtiapine 25 MG TABLET PO SCH ×3 (01:18→19:52)
[2019-08-13] MEDS: 0.9 % SODIUM CHLORIDE 10 ML SYRINGE IV SCH ×5 (01:18→21:19)
[2019-08-13] MEDS: HYDROcodone/APAP 5/325MG TABLET PO PRN (04:40)
[2019-08-13] MEDS ORDERED: NICOTINE 14 MG PATCH TOPICAL ONE (08:00)
[2019-08-13] MEDS: FOLIC ACID 1 MG TABLET PO SCH (08:37)
[2019-08-13] MEDS: THIAMINE 100 MG TABLET PO SCH (08:37)
[2019-08-13] MEDS: MULTIVIT,THER IRON,CA,FA & MIN 1 TABLET PO SCH (08:37)
[2019-08-13] MEDS: MAGNESIUM OXIDE 400 MG TABLET PO SCH (08:37)
[2019-08-13] MEDS ORDERED: IPRATROPIUM/ALBUTEROL 3 ML AMPUL.NEB NEB PRN (10:34)
--- NOTE | 2019-08-13 13:05 | Internal Med Progress Note ---
Medical - PN: Subj Patient information: Note initiated : 08/13/19 at 1:00 pm Service Date, if different from initiated Date: [] Patient: Do Cantu 59 y/o F admitted on 08/03/19 for Left shoulder and upper arm pain. Chief Complaint: [] Interval history: Patient did sleep yesterday from approximately 7 PM until early this morning. She is more lucid this morning. I had written for Seroquel but because she was asleep was not given yesterday evening. This morning she declined to take medicine. The patient this morning told the nurse that she pays her friend $2000 a month to check on her and make sure that she is eating. She did not elaborate on whether this is in addition to or including the cost of food and other things that she needs. She tells me that she wants to talk to social work job titles about enrolling in Medicaid but has some concerns over what the state will take from her in regards to assets because she knows she has too much money. The patient was appalled that she had been harassing 1 of the male nurses regarding marriage. This morning she is intermittently oriented to the fact that she is at [facility] she says she was just told that and also was able to look on the chalk board and see that she is on day August 13Tuesday. She says she is cheating but this is an improvement from before. Patient's p.o. intake was much improved today she has eaten - Constitutional Vitals: Vital Signs Temp Pulse Resp BP Pulse Ox 97.6 F 91 H 22 108/63 93 08/13/19 12:00 08/13/19 12:00 08/13/19 12:00 08/13/19 12:08/13/19 12:00 Period Temp Pulse Resp BP Sys/Manning Pulse Ox Last 24 Hr 97.2 F-98.5 F 88-103 16-22 103-116/60-67 93-96 Intake and Output 08/12/19 08/13/19 08/13/19 21:59 05:59 13:59 Intake Total 100 280 Output Total 251 Balance 100 -251 280 Weight 110 lb 14.4 oz Intake & Output: Intake & Output 08/12/19 08/13/19 08/13/19 21:59 05:59 13:59 Intake Total 100 280 Output Total 251 Balance 100 -251 280 Weight 110 lb 14.4 oz Intake: Oral 100 280 Output: Void Amount 250 # of times incontinent of urine 1 Other: Meal Lunch Breakfast Percent of Meal Consumed 100% 100% Feeding Ability Independent - Additional findings Additional findings: General well-developed cachectic female in no acute cardiopulmonary distress she is alert and oriented to person date. She is intermittently oriented to place some time she is not aware that she is in a hospital room. CV regular rate and rhythm Lungs clear to auscultation bilaterally Abdomen soft nontender Hands left arm is in a splint. She asked me if she just broke her left arm and how. The right hand with modest tremor decreased from yesterday Skin warm and dry Calves no edema Medical - PN: Obj Da - Labs CBC & Chem 7: 08/11/19 05:22 08/11/19 05:22 Labs: Abnormal Lab Results 08/12/19 08/11/19 08/11/19 08:48 05:22 05:22 RBC 2.71 L Hgb 8.5 L Hct 27.4 L MCV 101.1 H RDW 18.1 H Gran % 83.4 H Lymph % (Auto) 9.9 L Lymph # (Auto) 0.78 L Carbon Dioxide 21 L Glucose 206 H GGT 77 H U Benzodiazepines Scrn Suspect positive A Meds: Medications Acetaminophen (Tylenol) 650 mg PO Q6HP PRN PRN Reason: PAIN/FEVER > 101 Hydrocodone Bitart/Acetaminophen ([place] 5/325mg) 1 tab PO Q4HP PRN PRN Reason: PAIN LEVEL 3-6 Last Admin: 08/13/19 04:40 Dose: 1 tab Documented by: Albuterol/Ipratropium (Duoneb) 3 ml NEB Q6HP PRN PRN Reason: Shortness Of Breath Or Wheezing Apixaban (Eliquis) 2.5 mg PO BID [facility] Last Admin: 08/13/19 08:36 Dose: 2.5 mg Documented by: Chlordiazepoxide HCl (Librium) 10 mg PO QIDP PRN PRN Reason: Alcohol Withdrawal Last Admin: 08/12/19 08:26 Dose: 10 mg Documented by: Docusate Sodium (Colace) 100 mg PO BID [facility] Last Admin: 08/13/19 08:37 Dose: 100 mg Documented by: Famotidine (Pepcid) 20 mg PO BID [facility] Last Admin: 08/13/19 08:36 Dose: 20 mg Documented by: Folic Acid (Folic Acid) 1 mg PO DAILY [facility] Last Admin: 08/13/19 08:37 Dose: 1 mg Documented by: Iron Carb/Multivit/[place]/Folic Acid (Multivitamin W/Minerals) 1 tab PO DAILY [facility] Last Admin: 08/13/19 08:37 Dose: 1 tab Documented by: Magnesium Oxide (Magnesium Oxide) 400 mg PO DAILY [facility] Last Admin: 08/13/19 08:37 Dose: 400 mg Documented by: Ondansetron HCl (Zofran) 4 mg IV Q4HP PRN PRN Reason: Nausea And Vomiting Polyethylene Glycol (Miralax) 17 gm PO DAILYP PRN PRN Reason: Constipation Last Admin: 08/13/19 08:36 Dose: 17 gm Documented by: Quetiapine Fumarate (Seroquel) 25 mg PO HS [facility] Last Admin: 08/13/19 09:14 Dose: 25 mg Documented by: Senna (Senokot) 2 tab PO DAILYP PRN PRN Reason: Constipation Sodium Chloride (Saline Flush) 10 ml IV Q8 [facility] Last Admin: 08/13/19 05:48 Dose: 10 ml Documented by: Thiamine HCl (Vitamin B1) 100 mg PO DAILY [facility] Last Admin: 08/13/19 08:37 Dose: 100 mg Documented by: Medical - PN: A/P - Time Spent With Patient Total time spent is greater than 50% in coordination of care (as documented) at patient's floor/unit and/or counseling patient: Greater than 35 minutes (1) Alcoholic dementia Problem details: pt with very poor functional capacity for ADLs at this time. No safe discharge. NO insurance benefit. Cont steroids, MVI, thiamine folate and therapy. Add Seroquel 25 mg nightly. Was not given last evening Status: Acute Assessment and plan: increase activity as tolerated. reorientate. need to find a safe discharge Patient has not oriented despite being finished with her withdrawals and being orientated daily. She is not able to make medical and financial decisions for herself safely. I recommend that she have a court appointed guardian if an appropriate family member is unable to be enlisted Current Visit: Yes (2) Hypotension Problem details: poor nutritional status with alcohol abuse chronic malnutrition and chronic intoxication. will check cortisol and tsh looking for hormone insufficiency. cortisol was 7. inappropriately low in this cachectic malnourished pt. Will start stress dose steroids. TSH 5.6. no replacement for now. bp and appetitie normalized with steroids continue. Status: Acute Assessment and plan: cont hydrocortisone 50 mg IV q6 Current Visit: Yes (3) Hypomagnesemia Problem details: resume oral replacement Status: Acute Assessment and plan: Stable continue home replacement Current Visit: Yes (4) Left humeral fracture Status: Acute Assessment and plan: non displaced and not requiring surgery. continue sling. Will need improved mentation for safe discharge. Current Visit: Yes (5) Pulmonary emboli Status: Acute Assessment and plan: chronic and therefore will treat less aggressive with 2.5 mg apixaban bid due to malnutrition and underweight patient. Current Visit: Yes (6) Alcohol withdrawal syndrome Problem details: mild and well controlled at this time Status: Chronic Assessment and plan: cont prn libirum. will add MVI folate and iron. check b12 level. SLUMS score 15 For her confusion I am going to try low-dose Seroquel. Also considering propranolol for her tremor but will use 1 medication at a time Current Visit: Yes (7) Alcohol abuse Problem details: Patient is willing to go to assisted care. We discussed that she does not have benefits to go to a [facility] facility. We will have to look to see if she can afford assisted living on private pay. She did not specifically agree to stopping alcohol but I think this is a step to alcohol cessation Status: Chronic Current Visit: No Medical - PN: Qual - VTE Deep Vein Thrombosis/Pulmonary Embolism Present on Admission: No
[2019-08-14] MEDS: 0.9 % SODIUM CHLORIDE 10 ML SYRINGE IV SCH ×3 (05:47→20:06)
[2019-08-14] MEDS: THIAMINE 100 MG TABLET PO SCH (07:53)
[2019-08-14] MEDS: MAGNESIUM OXIDE 400 MG TABLET PO SCH (07:53)
[2019-08-14] MEDS: APIXABAN 2.5 MG TABLET PO SCH ×2 (07:53→20:07)
[2019-08-14] MEDS: DOCUSATE SODIUM 100 MG CAPSULE PO SCH ×2 (07:53→20:07)
[2019-08-14] MEDS: MULTIVIT,THER IRON,CA,FA & MIN 1 TABLET PO SCH (07:53)
[2019-08-14] MEDS: FAMOTIDINE 20 MG TABLET PO SCH ×2 (07:53→20:06)
[2019-08-14] MEDS: FOLIC ACID 1 MG TABLET PO SCH (07:54)
[2019-08-14] MEDS: HYDROcodone/APAP 5/325MG TABLET PO PRN ×3 (07:54→21:32)
[2019-08-14] MEDS: NICOTINE 7 MG PATCH TOPICAL SCH (09:48)
--- NOTE | 2019-08-14 14:55 | Internal Med Progress Note ---
Medical - PN: Subj Patient information: Note initiated : 08/14/19 at 2:51 pm Service Date, if different from initiated Date: [] Patient: Do Cantu 59 y/o F admitted on 08/03/19 for Left shoulder and upper arm pain. Chief Complaint: [] Interval history: Patient today knows that she is in a hospital and thinks it is the other hospital in [place] that is not [facility]. Patient states she is willing to go to a care facility but not forever and wants to eventually go home. She states she was buying alcohol on her own and also her friend was buying some for her. She agrees that she needs to stop. - Constitutional Vitals: Vital Signs Temp Pulse Resp BP Pulse Ox 98.3 F 95 H 18 115/73 95 08/14/19 12:00 08/14/19 12:00 08/14/19 12:00 08/14/19 12:00 08/14/19 12:00 Period Temp Pulse Resp BP Sys/Manning Pulse Ox Last 24 Hr 97.2 F-98.4 F 93-106 18-24 86-129/63-84 94-98 Intake and Output 08/14/19 08/14/19 08/14/19 05:59 13:59 21:59 Intake Total 680 Output Total 1 Balance 679 Weight 117 lb Intake & Output: Intake & Output 08/14/19 08/14/19 08/14/19 05:59 13:59 21:59 Intake Total 680 Output Total 1 Balance 679 Weight 117 lb Intake: Oral 680 Output: # of times incontinent of urine 1 Other: Meal Breakfast Percent of Meal Consumed 100% # Voids 1 - Additional findings Additional findings: General well-developed thin female chronically ill-appearing and appears older than her stated age CV regular rate and rhythm Lungs clear to auscultation bilaterally Calves no edema Hand mild resting and intention tremor improved from before Left arm in sling Mentation she is alert to person and being in the hospital but not the exact date or name of hospital. Medical - PN: Obj Da - Labs CBC & Chem 7: 08/11/19 05:22 08/11/19 05:22 Labs: Abnormal Lab Results 08/12/19 08:48 U Benzodiazepines Scrn Suspect positive A Meds: Medications Acetaminophen (Tylenol) 650 mg PO Q6HP PRN PRN Reason: PAIN/FEVER > 101 Hydrocodone Bitart/Acetaminophen ([place] 5/325mg) 1 tab PO Q4HP PRN PRN Reason: PAIN LEVEL 3-6 Last Admin: 08/14/19 07:54 Dose: 1 tab Documented by: Albuterol/Ipratropium (Duoneb) 3 ml NEB Q6HP PRN PRN Reason: Shortness Of Breath Or Wheezing Apixaban (Eliquis) 2.5 mg PO BID [facility] Last Admin: 08/14/19 07:53 Dose: 2.5 mg Documented by: Chlordiazepoxide HCl (Librium) 10 mg PO QIDP PRN PRN Reason: Alcohol Withdrawal Last Admin: 08/12/19 08:26 Dose: 10 mg Documented by: Docusate Sodium (Colace) 100 mg PO BID [facility] Last Admin: 08/14/19 07:53 Dose: 100 mg Documented by: Famotidine (Pepcid) 20 mg PO BID [facility] Last Admin: 08/14/19 07:53 Dose: 20 mg Documented by: Folic Acid (Folic Acid) 1 mg PO DAILY [facility] Last Admin: 08/14/19 07:54 Dose: 1 mg Documented by: Iron Carb/Multivit/Supervisor Fertilizer/Folic Acid (Multivitamin W/Minerals) 1 tab PO DAILY [facility] Last Admin: 08/14/19 07:53 Dose: 1 tab Documented by: Magnesium Oxide (Magnesium Oxide) 400 mg PO DAILY [facility] Last Admin: 08/14/19 07:53 Dose: 400 mg Documented by: Nicotine (Nicoderm) 7 mg TOPICAL DAILY@1000 [facility] Last Admin: 08/14/19 09:48 Dose: 7 mg Documented by: Ondansetron HCl (Zofran) 4 mg IV Q4HP PRN PRN Reason: Nausea And Vomiting Polyethylene Glycol (Miralax) 17 gm PO DAILYP PRN PRN Reason: Constipation Last Admin: 08/13/19 08:36 Dose: 17 gm Documented by: Quetiapine Fumarate (Seroquel) 25 mg PO HS [facility] Last Admin: 08/13/19 19:52 Dose: 25 mg Documented by: Senna (Senokot) 2 tab PO DAILYP PRN PRN Reason: Constipation Sodium Chloride (Saline Flush) 10 ml IV Q8 [facility] Last Admin: 08/14/19 05:47 Dose: 10 ml Documented by: Thiamine HCl (Vitamin B1) 100 mg PO DAILY [facility] Last Admin: 08/14/19 07:53 Dose: 100 mg Documented by: Medical - PN: A/P - Time Spent With Patient Total time spent is greater than 50% in coordination of care (as documented) at patient's floor/unit and/or counseling patient: 25 - 35 minutes (1) Alcoholic dementia Problem details: pt with very poor functional capacity for ADLs at this time. No safe discharge. NO insurance benefit. Cont steroids, MVI, thiamine folate and therapy. Has been on Seroquel p.o. nightly the last night follow for improvement of her psychosis Status: Acute Assessment and plan: increase activity as tolerated. reorientate. need to find a safe discharge Patient has not oriented despite being finished with her withdrawals and being orientated daily. She is not able to make medical and financial decisions for herself safely. I recommend that she have a court appointed guardian if an appropriate family member is unable to be enlisted Anticipate placement in [facility] facility or assisted living based on what can be approved and paid for Current Visit: Yes (2) Hypotension Problem details: poor nutritional status with alcohol abuse chronic malnutrition and chronic intoxication. will check cortisol and tsh looking for hormone insufficiency. cortisol was 7. inappropriately low in this cachectic malnourished pt. Will start stress dose steroids. TSH 5.6. no replacement for now. bp and appetitie normalized with steroids continue. Status: Acute Assessment and plan: Attributed to adrenal insufficiency. Will decrease dose to oral 20 mg twice daily Current Visit: Yes (3) Hypomagnesemia Problem details: resume oral replacement Status: Acute Assessment and plan: Stable continue home replacement Current Visit: Yes (4) Left humeral fracture Status: Acute Assessment and plan: non displaced and not requiring surgery. continue sling. Will need improved mentation for safe discharge. Current Visit: Yes (5) Pulmonary emboli Status: Acute Assessment and plan: chronic and therefore will treat less aggressive with 2.5 mg apixaban bid due to malnutrition and underweight patient. Current Visit: Yes (6) Alcohol withdrawal syndrome Problem details: mild and well controlled at this time Status: Chronic Assessment and plan: cont prn libirum. will add MVI folate and iron. check b12 level. SLUMS score 15 For her confusion I am going to try low-dose Seroquel. Also considering propranolol for her tremor but will use 1 medication at a time Current Visit: Yes (7) Alcohol abuse Problem details: Patient is willing to go to assisted care. We discussed that she does not have benefits to go to a [facility] facility. We will have to look to see if she can afford assisted living on private pay. She did not specifically agree to stopping alcohol but I think this is a step to alcohol cessation Status: Chronic Current Visit: No Medical - PN: Qual - VTE Deep Vein Thrombosis/Pulmonary Embolism Present on Admission: No
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
[2019-08-14] MEDS: QUEtiapine 25 MG TABLET PO SCH (20:05)
[2019-08-14] MEDS: chlordiazePOXIDE 5 MG CAPSULE PO PRN (20:05)
[2019-08-14] MEDS: HYDROCORTISONE 10 MG TABLET PO SCH (20:06)
[2019-08-15] MEDS: HYDROcodone/APAP 5/325MG TABLET PO PRN ×4 (04:05→19:26)
[2019-08-15] MEDS: 0.9 % SODIUM CHLORIDE 10 ML SYRINGE IV SCH ×3 (04:35→21:48)
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
[2019-08-15 09:51] LABS: Alcohol, Blood < 10.0 mg/dL (<10); Alcohol,Blood < 0.010 gm/dl (<0.010)
[2019-08-15] MEDS: APIXABAN 2.5 MG TABLET PO SCH ×2 (10:32→21:48)
[2019-08-15] MEDS: FAMOTIDINE 20 MG TABLET PO SCH ×2 (10:32→21:48)
[2019-08-15] MEDS: DOCUSATE SODIUM 100 MG CAPSULE PO SCH ×2 (10:32→21:48)
[2019-08-15] MEDS: NICOTINE 7 MG PATCH TOPICAL SCH (10:32)
[2019-08-15] MEDS: MAGNESIUM OXIDE 400 MG TABLET PO SCH (10:32)
[2019-08-15] MEDS: MULTIVIT,THER IRON,CA,FA & MIN 1 TABLET PO SCH (10:32)
[2019-08-15] MEDS: HYDROCORTISONE 10 MG TABLET PO SCH ×2 (10:33→21:48)
[2019-08-15] MEDS: FOLIC ACID 1 MG TABLET PO SCH (10:33)
[2019-08-15] MEDS: THIAMINE 100 MG TABLET PO SCH (10:33)
[2019-08-15] MEDS: QUEtiapine 25 MG TABLET PO SCH (21:48)
[2019-08-16] MEDS: 0.9 % SODIUM CHLORIDE 10 ML SYRINGE IV SCH ×3 (05:09→20:04)
[2019-08-16] MEDS: HYDROcodone/APAP 5/325MG TABLET PO PRN ×4 (05:18→20:03)
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
[2019-08-16] MEDS ORDERED: HYDROCORTISONE 10 MG TABLET PO SCH ×2 (08:00→14:30)
[2019-08-16] MEDS: NICOTINE 7 MG PATCH TOPICAL SCH (09:16)
[2019-08-16] MEDS: MAGNESIUM OXIDE 400 MG TABLET PO SCH (09:17)
[2019-08-16] MEDS: FOLIC ACID 1 MG TABLET PO SCH (09:17)
[2019-08-16] MEDS: FAMOTIDINE 20 MG TABLET PO SCH ×2 (09:17→20:03)
[2019-08-16] MEDS: APIXABAN 2.5 MG TABLET PO SCH ×2 (09:17→20:03)
[2019-08-16] MEDS: MULTIVIT,THER IRON,CA,FA & MIN 1 TABLET PO SCH (09:17)
[2019-08-16] MEDS: DOCUSATE SODIUM 100 MG CAPSULE PO SCH ×2 (09:17→20:04)
[2019-08-16] MEDS: THIAMINE 100 MG TABLET PO SCH (09:46)
[2019-08-16] MEDS: QUEtiapine 25 MG TABLET PO SCH (20:03)
[2019-08-17] MEDS: HYDROcodone/APAP 5/325MG TABLET PO PRN ×4 (03:42→18:50)
[2019-08-17] MEDS: 0.9 % SODIUM CHLORIDE 10 ML SYRINGE IV SCH ×3 (06:10→21:11)
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
[2019-08-17] MEDS: FAMOTIDINE 20 MG TABLET PO SCH ×2 (09:12→21:11)
[2019-08-17] MEDS: DOCUSATE SODIUM 100 MG CAPSULE PO SCH ×2 (09:13→21:11)
[2019-08-17] MEDS: MULTIVIT,THER IRON,CA,FA & MIN 1 TABLET PO SCH (09:13)
[2019-08-17] MEDS: APIXABAN 2.5 MG TABLET PO SCH ×2 (09:14→21:11)
[2019-08-17] MEDS: MAGNESIUM OXIDE 400 MG TABLET PO SCH (09:15)
[2019-08-17] MEDS: FOLIC ACID 1 MG TABLET PO SCH (09:15)
[2019-08-17] MEDS: THIAMINE 100 MG TABLET PO SCH (09:16)
[2019-08-17] MEDS: HYDROCORTISONE 10 MG TABLET PO SCH ×2 (09:16→15:16)
[2019-08-17] MEDS: NICOTINE 7 MG PATCH TOPICAL SCH (10:11)
[2019-08-17] MEDS: QUEtiapine 25 MG TABLET PO SCH (21:11)
[2019-08-18] MEDS: HYDROcodone/APAP 5/325MG TABLET PO PRN ×5 (01:00→20:12)
[2019-08-18] MEDS: ACETAMINOPHEN 325 MG TABLET PO PRN ×2 (03:24→18:25)
[2019-08-18] MEDS: 0.9 % SODIUM CHLORIDE 10 ML SYRINGE IV SCH ×3 (05:31→20:13)
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
[2019-08-18] MEDS: DOCUSATE SODIUM 100 MG CAPSULE PO SCH ×2 (09:01→20:12)
[2019-08-18] MEDS: THIAMINE 100 MG TABLET PO SCH (09:01)
[2019-08-18] MEDS: MAGNESIUM OXIDE 400 MG TABLET PO SCH (09:01)
[2019-08-18] MEDS: FAMOTIDINE 20 MG TABLET PO SCH ×2 (09:02→20:12)
[2019-08-18] MEDS: NICOTINE 7 MG PATCH TOPICAL SCH (09:02)
[2019-08-18] MEDS: FOLIC ACID 1 MG TABLET PO SCH (09:02)
[2019-08-18] MEDS: MULTIVIT,THER IRON,CA,FA & MIN 1 TABLET PO SCH (09:02)
[2019-08-18] MEDS: APIXABAN 2.5 MG TABLET PO SCH ×2 (09:02→20:12)
[2019-08-18] MEDS: HYDROCORTISONE 10 MG TABLET PO SCH ×2 (09:06→16:36)
[2019-08-18] MEDS: QUEtiapine 25 MG TABLET PO SCH (20:11)
[2019-08-19] MEDS: HYDROcodone/APAP 5/325MG TABLET PO PRN ×5 (05:42→23:07)
[2019-08-19] MEDS: 0.9 % SODIUM CHLORIDE 10 ML SYRINGE IV SCH ×4 (05:44→22:50)
[2019-08-19] MEDS: ACETAMINOPHEN 325 MG TABLET PO PRN ×2 (07:35→21:04)
[2019-08-19] MEDS: HYDROCORTISONE 10 MG TABLET PO SCH ×2 (07:35→14:47)
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
[2019-08-19] MEDS: FOLIC ACID 1 MG TABLET PO SCH (08:54)
[2019-08-19] MEDS: DOCUSATE SODIUM 100 MG CAPSULE PO SCH ×2 (08:54→19:57)
[2019-08-19] MEDS: THIAMINE 100 MG TABLET PO SCH (08:54)
[2019-08-19] MEDS: APIXABAN 2.5 MG TABLET PO SCH ×2 (08:54→19:57)
[2019-08-19] MEDS: MULTIVIT,THER IRON,CA,FA & MIN 1 TABLET PO SCH (08:54)
[2019-08-19] MEDS: MAGNESIUM OXIDE 400 MG TABLET PO SCH (08:54)
[2019-08-19] MEDS: FAMOTIDINE 20 MG TABLET PO SCH ×2 (08:54→19:57)
[2019-08-19] MEDS: NICOTINE 7 MG PATCH TOPICAL SCH (08:54)
[2019-08-19] MEDS: QUEtiapine 25 MG TABLET PO SCH (19:56)
[2019-08-20] MEDS: HYDROcodone/APAP 5/325MG TABLET PO PRN ×5 (04:29→23:15)
[2019-08-20] MEDS: 0.9 % SODIUM CHLORIDE 10 ML SYRINGE IV SCH ×3 (04:30→21:28)
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
[2019-08-20] MEDS: FAMOTIDINE 20 MG TABLET PO SCH ×2 (08:04→21:28)
[2019-08-20] MEDS: DOCUSATE SODIUM 100 MG CAPSULE PO SCH ×2 (08:04→21:28)
[2019-08-20] MEDS: FOLIC ACID 1 MG TABLET PO SCH (08:04)
[2019-08-20] MEDS: APIXABAN 2.5 MG TABLET PO SCH ×2 (08:04→21:28)
[2019-08-20] MEDS: THIAMINE 100 MG TABLET PO SCH (08:04)
[2019-08-20] MEDS: MAGNESIUM OXIDE 400 MG TABLET PO SCH (08:04)
[2019-08-20] MEDS: MULTIVIT,THER IRON,CA,FA & MIN 1 TABLET PO SCH (08:04)
[2019-08-20] MEDS: HYDROCORTISONE 10 MG TABLET PO SCH ×2 (08:04→13:40)
[2019-08-20] MEDS: NICOTINE 7 MG PATCH TOPICAL SCH (11:26)
[2019-08-20] MEDS: ACETAMINOPHEN 325 MG TABLET PO PRN (17:23)
[2019-08-20] MEDS: QUEtiapine 25 MG TABLET PO SCH (21:28)
[2019-08-21] MEDS: ACETAMINOPHEN 325 MG TABLET PO PRN ×2 (01:38→22:24)
[2019-08-21] MEDS: HYDROcodone/APAP 5/325MG TABLET PO PRN ×4 (04:50→19:35)
[2019-08-21] MEDS: 0.9 % SODIUM CHLORIDE 10 ML SYRINGE IV SCH ×4 (05:01→21:54)
[2019-08-21] MEDS: HYDROCORTISONE 10 MG TABLET PO SCH ×2 (08:12→14:44)
[2019-08-21] MEDS: MAGNESIUM OXIDE 400 MG TABLET PO SCH (08:59)
[2019-08-21] MEDS: MULTIVIT,THER IRON,CA,FA & MIN 1 TABLET PO SCH (08:59)
[2019-08-21] MEDS: DOCUSATE SODIUM 100 MG CAPSULE PO SCH ×2 (09:00→19:35)
[2019-08-21] MEDS: THIAMINE 100 MG TABLET PO SCH (09:01)
[2019-08-21] MEDS: FOLIC ACID 1 MG TABLET PO SCH (09:01)
[2019-08-21] MEDS: FAMOTIDINE 20 MG TABLET PO SCH ×2 (09:01→19:35)
[2019-08-21] MEDS: APIXABAN 2.5 MG TABLET PO SCH ×2 (09:02→19:35)
[2019-08-21] MEDS: NICOTINE 7 MG PATCH TOPICAL SCH (10:21)
[2019-08-21] MEDS: QUEtiapine 25 MG TABLET PO SCH (19:35)
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
[2019-08-22] MEDS: HYDROcodone/APAP 5/325MG TABLET PO PRN ×4 (04:30→19:33)
[2019-08-22] MEDS: 0.9 % SODIUM CHLORIDE 10 ML SYRINGE IV SCH ×4 (05:31→20:03)
[2019-08-22] MEDS: MAGNESIUM OXIDE 400 MG TABLET PO SCH (08:27)
[2019-08-22] MEDS: HYDROCORTISONE 10 MG TABLET PO SCH ×2 (08:27→14:52)
[2019-08-22] MEDS: FOLIC ACID 1 MG TABLET PO SCH (08:28)
[2019-08-22] MEDS: DOCUSATE SODIUM 100 MG CAPSULE PO SCH ×2 (08:28→19:32)
[2019-08-22] MEDS: APIXABAN 2.5 MG TABLET PO SCH ×2 (08:28→19:33)
[2019-08-22] MEDS: MULTIVIT,THER IRON,CA,FA & MIN 1 TABLET PO SCH (08:28)
[2019-08-22] MEDS: THIAMINE 100 MG TABLET PO SCH (08:28)
[2019-08-22] MEDS: FAMOTIDINE 20 MG TABLET PO SCH ×2 (08:28→19:32)
[2019-08-22] MEDS: NICOTINE 7 MG PATCH TOPICAL SCH (11:30)
[2019-08-22] MEDS: QUEtiapine 25 MG TABLET PO SCH (19:33)
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
[2019-08-23] MEDS: 0.9 % SODIUM CHLORIDE 10 ML SYRINGE IV SCH ×2 (05:02→14:30)
[2019-08-23] MEDS: HYDROcodone/APAP 5/325MG TABLET PO PRN ×4 (05:03→17:23)
[2019-08-23] MEDS: MULTIVIT,THER IRON,CA,FA & MIN 1 TABLET PO SCH (08:09)
[2019-08-23] MEDS: FAMOTIDINE 20 MG TABLET PO SCH (08:09)
[2019-08-23] MEDS: HYDROCORTISONE 10 MG TABLET PO SCH ×3 (08:09→14:35)
[2019-08-23] MEDS: MAGNESIUM OXIDE 400 MG TABLET PO SCH (08:09)
[2019-08-23] MEDS: DOCUSATE SODIUM 100 MG CAPSULE PO SCH (08:09)
[2019-08-23] MEDS: THIAMINE 100 MG TABLET PO SCH (08:09)
[2019-08-23] MEDS: FOLIC ACID 1 MG TABLET PO SCH (08:09)
[2019-08-23] MEDS: APIXABAN 2.5 MG TABLET PO SCH (08:09)
[2019-08-23] MEDS: NICOTINE 7 MG PATCH TOPICAL SCH (09:14)
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
== END 2019-08-23 17:45 | disposition home or self-care (01) | DRG 562 ==
LOC: ED 12:45 → ICU 21:54 → MEDSUR 08-13 17:35
PROVIDERS: ADMIT Internal Medicine; ATTEND Internal Medicine